=== PATIENT | female | born 1975 | race African-American/Black ===

== ENCOUNTER 2019-12-24 21:39 | Inpatient (IN) | payer OTHER, SELFPAY ==
[2019-12-26 03:49] VITALS: BMI 55.4
[2019-12-27] VITALS (10 sets, daily range): BP systolic 97–134; BP diastolic 43–68; PULSE 66–96; RESP 18–22; TEMP 36.1–37.2; O2SAT 93–99
[2019-12-27 06:30] LABS: INTERNATIONAL NORM RATIO 2.2 (0.9-1.1); Prothrombin Time 26.2 SEC (10.8-13.0)
[2019-12-27] MEDS: Omeprazole 20 MG CAPSULE.DR PO ×2 (06:33→10:01)
[2019-12-27] MEDS: 0.9 % Sodium Chloride Flush 3 ML SYRINGE 2 ML IVFLUSH ×4 (06:33→21:12)
[2019-12-27] MEDS: Levothyroxine Sodium 75 MCG TABLET PO ×2 (06:33→10:03)
[2019-12-27 06:41] LABS: MANUAL DIFF FLAG NO
[2019-12-27 06:51] LABS: Basophils Percent Auto 0.2 % (0-2); Hematocrit 40.5 % (37-47); Imm Gran Pct Auto 0.6 % (0.0-0.4); Lymphocytes Absolute Auto 2.2 X10*3/uL (1.2-4.9); Lymphocytes Percent Auto 14.3 % (20-40); Mean Corpuscular HGB Conc 32.1 g/dl (31.0-35.0); Mean Corpuscular Hemoglobin 27.5 pg (27.0-33.0); Mean Corpuscular Volume 85.8 fL (80-98); Mean Platelet Volume 11.4 fL (9.4-12.3); Monocytes Absolute Auto 0.9 X10*3/uL (0.1-1.2); Monocytes Percent Auto 5.8 % (2-11); Neutrophils Absolute Auto 12.3 X10*3/uL (2.0-8.3); Neutrophils Percent Auto 79.1 % (45-73); Platelet Count 326 X10*3/uL (160-400); Red Blood Count 4.72 X10*6/uL (4.20-5.50); Red Cell Distribution Width 15.9 % (11.0-16.0); White Blood Count 15.6 X10*3/uL (4.8-10.8)
[2019-12-27 06:59] LABS: Anion Gap 10 (12-20); Blood Urea Nitrogen 19 mg/dL (9-16); Calcium 9.2 mg/dL (8.4-10.2); Carbon Dioxide 28 mmol/L (22-29); Chloride 100 mmol/L (96-108); Creatinine Clr Calc Pharmacy 106.4; Estimated Glomerular Filt Rate 54; Glucose Fasting 332 mg/dL (60-99); Potassium 4.3 mmol/l (3.3-5.1); Sodium 134 mmol/L (135-145)
[2019-12-27 07:39] LABS: Glucose, Whole Blood 310 mg/dL (60-115)
--- NOTE | 2019-12-27 08:07 | PC.NURSE ---
P: PATIENT COMPLAINS OF CHEST PAIN, STERNAL, NO RADIATION, 8/10, WORSE ON DEEP INSPIRATION--ONLY PAIN MED ORDERED IS TYLENOL FOR 1-06/04 PAIN P: POC AT HS WAS 469. I: ASSESS PATIENT, NOTIFY DR PATHAK I: MEDICATE FOR PAIN WITH ONE TIME 650MG TYLENOL PER MD E: PATIENT ALERT, ORIENTED. FEELS HER PAIN IS ASSOCIATED WITH HER COUGH AND DEEP INSPIRATIONS. RECENTLY HAD EKG. NOTIFIED MD, WAS TOLD NOT TO TAKE EKG AT THIS TIME, ALSO NEW ORDER FOR ONE TIME TYLENOL ORDERED AND ADMINISTERED WITH GOOD EFFECT. REGARDING POC, SLIDING SCALE CALLED FOR 10 UNITS, THESE WERE GIVEN, AND MD NOTIFIED AND NEW ORDER FOR ADDITIONAL 10 UNITS LISPRO. 50 UNITS SCHEDULED LANTUS ALSO GIVEN.
[2019-12-27] MEDS: medroxyPROGESTERone Acetate 5 MG TABLET 20 MG PO (10:00)
[2019-12-27] MEDS: clonazePAM 0.5 MG TABLET PO ×2 (10:01→21:04)
[2019-12-27] MEDS: Metoprolol Succinate ER 50 MG TAB.ER.24H PO (10:02)
[2019-12-27] MEDS: lisinopriL 5 MG TABLET PO (10:03)
[2019-12-27] MEDS: Sertraline HCL 100 MG TABLET PO ×2 (10:03→21:03)
[2019-12-27] MEDS: Insulin Glargine,Hum.rec.anlog 100 UNIT/ML 10 ML VIAL 25 UNIT SUBCUT (10:04)
--- NOTE | 2019-12-27 10:10 | P.PNIM_ITS ---
Subjective Subjective Date of Service: 12/27/19 Interval History: improved shortness of breath, but still sob on exertion, not feeling confident to go home Cardiovascular Cardiovascular: Reports no additional cardiovascular complaints Respiratory Respiratory: Reports no additional respiratory complaints Physical Exam Vital Signs and I&O and Narrative: Vital Signs and I&O: Vital Signs Temp 98.2 F 12/27/19 07:47 Pulse 73 12/27/19 10:03 Resp 20 12/27/19 07:47 BP 113/53 L 12/27/19 10:03 Pulse Ox 95 12/27/19 08:00 Intake & Output 12/26/19 12/27/19 12/27/19 18:59 06:59 18:59 Intake Total 280 / 280 Output Total 600 / 600 Balance -320 / -320 Urine Output (Aver age ml/kg/hr) 0.31 Intake: Intake, Oral Alsen unt 280 / 280 Output: Output, Urine Am ount 600 / 600 Other: Number of Incont inent Voids 1 Number of Unmeas ured Voids 1 Urine Bedside Commode Urine Color Concentrated Body Mass Index 55.4 Const: General: no acute distress and alert Orientation/consciousness: patient oriented x3 Resp: Auscultation: clear to auscultation bilaterally and no wheezes Cardio: Heart sounds: S1 normal heart sound present and S2 normal heart sound present GI: Palpation (GI): nontender Neuro: General: patient oriented x3 Psych: Affect: normal affect Objective Data Current Medications Generic Name Dose Route Start Last Admin Trade Name Freq PRN Reason Stop Dose Admin Acetaminophen 650 mg 12/27/19 00:00 Acetaminophen 325 Mg Tablet PO Q6H PRN fever/pain,mild (scale 1-3) Albuterol Sulfate 2 puff 12/27/19 00:00 Albuterol Sulfate 90 Mcg 18 Gm Inhaler INHALE Q4H PRN Shortness of Breath/Wheezing Albuterol/Ipratropium 3 ml 12/27/19 08:00 12/27/19 07:39 Albuterol/Iprat 2.5/0.5mg 3 Ml Ampul.Neb INHALE Not Given RQ4H WHILE AWAKE CLAIRE Atorvastatin Calcium 20 mg 12/27/19 21:00 Atorvastatin Calcium 20 Mg Tablet PO BEDTIME [facility]IRE Clonazepam 0.5 mg 12/27/19 09:00 12/27/19 10:01 Clonazepam 0.5 Mg Tablet PO 0.5 mg BID [facility] Administration Clonazepam 0.5 mg 12/27/19 00:00 Clonazepam 0.5 Mg Tablet PO DAILY PRN Anxiety Docusate Sodium 100 mg 12/27/19 00:00 Docusate Sodium 100 Mg Capsule PO Q24H PRN Constipation Azithromycin 500 mg/ Sodium 250 mls @ 250 mls/hr 12/27/19 22:00 Chloride IV Q24H [facility] Ceftriaxone Sodium 1 gm/ 50 mls @ 100 mls/hr 12/27/19 22:00 Sodium Chloride IV Q24H [facility] Insulin Glargine 50 unit 12/27/19 21:00 Insulin Glargine,Hum.Rec.Anlog 100 Unit/Ml 10 Ml Vial SUBCUT BEDTIME [facility] Insulin Glargine 25 unit 12/27/19 09:00 12/27/19 10:04 Insulin Glargine,Hum.Rec.Anlog 100 Unit/Ml 10 Ml Vial SUBCUT 25 unit DAILY [facility] Administration Insulin Human Lispro 0 unit 12/27/19 08:00 12/27/19 10:06 Insulin Lispro 100 Unit/Ml 3 Ml Vial SUBCUT Not Given QIDACHS [facility] Protocol Insulin Human Lispro 14 unit 12/27/19 07:30 12/27/19 09:53 Insulin Lispro 100 Unit/Ml 3 Ml Vial SUBCUT Not Given TIDAC [facility] Levothyroxine Sodium 75 mcg 12/27/19 06:00 12/27/19 10:03 Levothyroxine Sodium 75 Mcg Tablet PO 75 mcg DAILY@0600 [facility] Administration Lisinopril 5 mg 12/27/19 09:00 12/27/19 10:03 Lisinopril 5 Mg Tablet PO 5 mg DAILY [facility] Administration Medroxyprogesterone Acetate 20 mg 12/27/19 09:00 12/27/19 10:00 Medroxyprogesterone Acetate 5 Mg Tablet PO 20 mg DAILY [facility] Administration Metoprolol Succinate 50 mg 12/27/19 09:00 12/27/19 10:02 Metoprolol Succinate Er 50 Mg Tab.Er.24h PO 50 mg DAILY [facility] Administration Omeprazole 20 mg 12/27/19 06:30 12/27/19 10:01 Omeprazole 20 Mg Capsule.Dr PO 20 mg DAILY@0630 [facility] Administration Ondansetron HCl 4 mg 10/01/20 00:00 Ondansetron Hcl 4 Mg/2 Ml Vial IVPUSH Q8H PRN Nausea and Vomiting Prednisone 40 mg 12/28/19 09:00 Prednisone 20 Mg Tablet PO DAILY [facility] Sertraline HCl 100 mg 12/27/19 09:00 12/27/19 10:03 Sertraline Hcl 100 Mg Tablet PO 100 mg BID [facility] Administration Sodium Chloride 2 ml 12/27/19 00:00 12/27/19 09:54 0.9 % Sodium Chloride Flush 3 Ml Syringe IVFLUSH 2 ml QSHIFT [facility] Administration Trazodone HCl 50 mg 12/27/19 00:00 Trazodone Hcl 100 Mg Tablet PO BEDTIME PRN Sleep Warfarin Sodium 5 mg 12/27/19 18:00 Warfarin Sodium 5 Mg Tablet PO DAILY@1800 [facility] Labs CBC & Chem 7: 12/27/19 06:00 12/27/19 06:00 Labs: Laboratory Results - last 24 hr 12/24/19 12/24/19 12/24/19 13:59 13:59 13:59 MCV 85.1 MCH 28.0 MCHC 32.9 RDW RDW Coeff of [place] 15.9 Plt Count 314 MPV 11.0 Immature Gran % (Auto) 0.6 H Neut % (Auto) 75.0 H Lymph % (Auto) 19.5 L [place] % (Auto) 4.2 Eos % (Auto) 0.2 Baso % (Auto) 0.5 Neut # (Auto) Lymph # (Auto) [place] # (Auto) Eos # (Auto) Baso # (Auto) Abs Immat Gran (auto) 0.08 H Absolute Lymphs (auto) 2.4 Absolute Monos (auto) 0.5 Absolute Eos (auto) 0.0 Absolute Basos (auto) 0.1 Absolute Nucleated RBC 0.020 H Nucleated RBC % (auto) 0.2 Absolute Neutrophils 9.3 H PT INR APTT D-Dimer Bicarbonate 27 Anion Gap 11 L Estimated Creat Clear 113.6 Estim Creat Clear Calc Estimated GFR Est GFR (Non-Af Amer) 59 POC Glucose Random Glucose 285 H Fasting Glucose Calcium Ferritin Lactate Dehydrogenase 203 Troponin I High Sens < 3.5 C-Reactive Protein 0.49 B-Natriuretic Peptide 317 H Procalcitonin Respiratory Panel [place] Adenovirus (PCR) B.pert (TEM-PCR) B.parapertussis DNA PCR C. pneumoniae DNA (PCR) Coronavirus (PCR) Coronavirus OC43 (PCR) Coronavirus HKU1 (PCR) Coronavirus 229E (PCR) Coronavirus NL63 (PCR) Human Metapneumovir PCR Influenza A (RT-PCR) Influenza B (RT-PCR) M. pneumoniae (PCR) Parainfluenza 1 (PCR) Parainfluenza 2 (PCR) Parainfluenza 3 (PCR) Parainfluenza 4 (PCR) RSV (RT-PCR) Entero/Rhino (PCR) SARS Virus RNA (RT-PCR) 12/24/19 12/24/19 12/24/19 13:59 13:59 13:59 MCV MCH MCHC RDW RDW Coeff of [place] Plt Count MPV Immature Gran % (Auto) Neut % (Auto) Lymph % (Auto) [place] % (Auto) Eos % (Auto) Baso % (Auto) Neut # (Auto) Lymph # (Auto) [place] # (Auto) Eos # (Auto) Baso # (Auto) Abs Immat Gran (auto) Absolute Lymphs (auto) Absolute Monos (auto) Absolute Eos (auto) Absolute Basos (auto) Absolute Nucleated RBC Nucleated RBC % (auto) Absolute Neutrophils PT 25.1 H D INR 2.1 H APTT 38.3 H D-Dimer Bicarbonate Anion Gap Estimated Creat Clear Estim Creat Clear Calc Estimated GFR Est GFR (Non-Af Amer) POC Glucose Random Glucose Fasting Glucose Calcium Ferritin 17 Lactate Dehydrogenase Troponin I High Sens C-Reactive Protein B-Natriuretic Peptide Procalcitonin 0.02 Respiratory Panel P[facility] Adenovirus (PCR) B.pert (TEM-PCR) B.parapertussis DNA PCR C. pneumoniae DNA (PCR) Coronavirus (PCR) Coronavirus OC43 (PCR) Coronavirus HKU1 (PCR) Coronavirus 229E (PCR) Coronavirus NL63 (PCR) Human Metapneumovir PCR Influenza A (RT-PCR) Influenza B (RT-PCR) M. pneumoniae (PCR) Parainfluenza 1 (PCR) Parainfluenza 2 (PCR) Parainfluenza 3 (PCR) Parainfluenza 4 (PCR) RSV (RT-PCR) Entero/Rhino (PCR) SARS Virus RNA (RT-PCR) 12/24/19 12/24/19 12/24/19 13:59 17:45 18:52 MCV MCH MCHC RDW RDW Coeff of [place] Plt Count MPV Immature Gran % (Auto) Neut % (Auto) Lymph % (Auto) [place] % (Auto) Eos % (Auto) Baso % (Auto) Neut # (Auto) Lymph # (Auto) [place] # (Auto) Eos # (Auto) Baso # (Auto) Abs Immat Gran (auto) Absolute Lymphs (auto) Absolute Monos (auto) Absolute Eos (auto) Absolute Basos (auto) Absolute Nucleated RBC Nucleated RBC % (auto) Absolute Neutrophils PT INR APTT D-Dimer < 200 Bicarbonate Anion Gap Estimated Creat Clear Estim Creat Clear Calc Estimated GFR Est GFR (Non-Af Amer) POC Glucose Random Glucose Fasting Glucose Calcium Ferritin Lactate Dehydrogenase Troponin I High Sens C-Reactive Protein B-Natriuretic Peptide Procalcitonin Respiratory Panel Pichardo SEE NOTE Adenovirus (PCR) NOT DETECTED B.pert (TEM-PCR) NOT DETECTED B.parapertussis DNA PCR NOT DETECTED C. pneumoniae DNA (PCR) NOT DETECTED Coronavirus (PCR) Not Detected Coronavirus OC43 (PCR) NOT DETECTED Coronavirus HKU1 (PCR) NOT DETECTED Coronavirus 229E (PCR) NOT DETECTED Coronavirus NL63 (PCR) NOT DETECTED Human Metapneumovir PCR NOT DETECTED Influenza A (RT-PCR) NOT DETECTED Influenza B (RT-PCR) NOT DETECTED M. pneumoniae (PCR) NOT DETECTED Parainfluenza 1 (PCR) NOT DETECTED Parainfluenza 2 (PCR) NOT DETECTED Parainfluenza 3 (PCR) NOT DETECTED Parainfluenza 4 (PCR) NOT DETECTED RSV (RT-PCR) NOT DETECTED Entero/Rhino (PCR) NOT DETECTED SARS Virus RNA (RT-PCR) NOT DETECTED 12/24/19 12/25/19 12/25/19 22:20 06:03 06:03 MCV 84.9 MCH 27.9 MCHC 32.8 RDW RDW Coeff of [place] 16.1 H Plt Count 310 MPV 10.9 Immature Gran % (Auto) 0.6 H Neut % (Auto) 68.3 Lymph % (Auto) 24.6 [place] % (Auto) 6.0 Eos % (Auto) 0.1 Baso % (Auto) 0.4 Neut # (Auto) Lymph # (Auto) [place] # (Auto) Eos # (Auto) Baso # (Auto) Abs Immat Gran (auto) 0.09 H Absolute Lymphs (auto) 3.5 Absolute Monos (auto) 0.9 Absolute Eos (auto) 0.0 Absolute Basos (auto) 0.1 Absolute Nucleated RBC 0.000 Nucleated RBC % (auto) 0.0 Absolute Neutrophils 9.8 H PT INR APTT D-Dimer Bicarbonate 28 Anion Gap 12 Estimated Creat Clear 112.5 Estim Creat Clear Calc Estimated GFR Est GFR (Non-Af Amer) 58 POC Glucose 364 H* Random Glucose Fasting Glucose 247 H D Calcium 9.5 D Ferritin Lactate Dehydrogenase Troponin I High Sens C-Reactive Protein B-Natriuretic Peptide Procalcitonin Respiratory Panel [place] Adenovirus (PCR) B.pert (TEM-PCR) B.parapertussis DNA PCR C. pneumoniae DNA (PCR) Coronavirus (PCR) Coronavirus OC43 (PCR) Coronavirus HKU1 (PCR) Coronavirus 229E (PCR) Coronavirus NL63 (PCR) Human Metapneumovir PCR Influenza A (RT-PCR) Influenza B (RT-PCR) M. pneumoniae (PCR) Parainfluenza 1 (PCR) Parainfluenza 2 (PCR) Parainfluenza 3 (PCR) Parainfluenza 4 (PCR) RSV (RT-PCR) Entero/Rhino (PCR) SARS Virus RNA (RT-PCR) 12/25/19 12/25/19 12/25/19 06:03 07:45 11:11 MCV MCH MCHC RDW RDW Coeff of [place] Plt Count MPV Immature Gran % (Auto) Neut % (Auto) Lymph % (Auto) [place] % (Auto) Eos % (Auto) Baso % (Auto) Neut # (Auto) Lymph # (Auto) [place] # (Auto) Eos # (Auto) Baso # (Auto) Abs Immat Gran (auto) Absolute Lymphs (auto) Absolute Monos (auto) Absolute Eos (auto) Absolute Basos (auto) Absolute Nucleated RBC Nucleated RBC % (auto) Absolute Neutrophils PT 29.9 H INR 2.5 H APTT D-Dimer Bicarbonate Anion Gap Estimated Creat Clear Estim Creat Clear Calc Estimated GFR Est GFR (Non-Af Amer) POC Glucose 240 H 373 H* Random Glucose Fasting Glucose Calcium Ferritin Lactate Dehydrogenase Troponin I High Sens C-Reactive Protein B-Natriuretic Peptide Procalcitonin Respiratory Panel [place] Adenovirus (PCR) B.pert (TEM-PCR) B.parapertussis DNA PCR C. pneumoniae DNA (PCR) Coronavirus (PCR) Coronavirus OC43 (PCR) Coronavirus HKU1 (PCR) Coronavirus 229E (PCR) Coronavirus NL63 (PCR) Human Metapneumovir PCR Influenza A (RT-PCR) Influenza B (RT-PCR) M. pneumoniae (PCR) Parainfluenza 1 (PCR) Parainfluenza 2 (PCR) Parainfluenza 3 (PCR) Parainfluenza 4 (PCR) RSV (RT-PCR) Entero/Rhino (PCR) SARS Virus RNA (RT-PCR) 12/25/19 12/25/19 12/25/19 16:52 21:35 23:15 MCV MCH MCHC RDW RDW Coeff of [place] Plt Count MPV Immature Gran % (Auto) Neut % (Auto) Lymph % (Auto) [place] % (Auto) Eos % (Auto) Baso % (Auto) Neut # (Auto) Lymph # (Auto) [place] # (Auto) Eos # (Auto) Baso # (Auto) Abs Immat Gran (auto) Absolute Lymphs (auto) Absolute Monos (auto) Absolute Eos (auto) Absolute Basos (auto) Absolute Nucleated RBC Nucleated RBC % (auto) Absolute Neutrophils PT INR APTT D-Dimer Bicarbonate Anion Gap Estimated Creat Clear Estim Creat Clear Calc Estimated GFR Est GFR (Non-Af Amer) POC Glucose 334 H 517 H* 374 H* Random Glucose Fasting Glucose Calcium Ferritin Lactate Dehydrogenase Troponin I High Sens C-Reactive Protein B-Natriuretic Peptide Procalcitonin Respiratory Panel [facility] Adenovirus (PCR) B.pert (TEM-PCR) B.parapertussis DNA PCR C. pneumoniae DNA (PCR) Coronavirus (PCR) Coronavirus OC43 (PCR) Coronavirus HKU1 (PCR) Coronavirus 229E (PCR) Coronavirus NL63 (PCR) Human Metapneumovir PCR Influenza A (RT-PCR) Influenza B (RT-PCR) M. pneumoniae (PCR) Parainfluenza 1 (PCR) Parainfluenza 2 (PCR) Parainfluenza 3 (PCR) Parainfluenza 4 (PCR) RSV (RT-PCR) Entero/Rhino (PCR) SARS Virus RNA (RT-PCR) 12/26/19 12/26/19 12/26/19 02:38 05:33 05:33 MCV MCH MCHC RDW RDW Coeff of [place] Plt Count MPV Immature Gran % (Auto) Neut % (Auto) Lymph % (Auto) [place] % (Auto) Eos % (Auto) Baso % (Auto) Neut # (Auto) Lymph # (Auto) [place] # (Auto) Eos # (Auto) Baso # (Auto) Abs Immat Gran (auto) Absolute Lymphs (auto) Absolute Monos (auto) Absolute Eos (auto) Absolute Basos (auto) Absolute Nucleated RBC Nucleated RBC % (auto) Absolute Neutrophils PT 27.4 H INR 2.3 H APTT D-Dimer Bicarbonate 27 Anion Gap 13 Estimated Creat Clear 118.2 Estim Creat Clear Calc Estimated GFR Est GFR (Non-Af Amer) > 60 POC Glucose 280 H Random Glucose 217 H Fasting Glucose Calcium 9.7 Ferritin Lactate Dehydrogenase Troponin I High Sens C-Reactive Protein B-Natriuretic Peptide Procalcitonin Respiratory Panel [facility] Adenovirus (PCR) B.pert (TEM-PCR) B.parapertussis DNA PCR C. pneumoniae DNA (PCR) Coronavirus (PCR) Coronavirus OC43 (PCR) Coronavirus HKU1 (PCR) Coronavirus 229E (PCR) Coronavirus NL63 (PCR) Human Metapneumovir PCR Influenza A (RT-PCR) Influenza B (RT-PCR) M. pneumoniae (PCR) Parainfluenza 1 (PCR) Parainfluenza 2 (PCR) Parainfluenza 3 (PCR) Parainfluenza 4 (PCR) RSV (RT-PCR) Entero/Rhino (PCR) SARS Virus RNA (RT-PCR) 12/26/19 12/26/19 12/26/19 05:33 06:21 07:30 MCV 85.2 MCH 28.0 MCHC 32.8 RDW RDW Coeff of [place] 15.7 Plt Count 321 MPV 11.1 Immature Gran % (Auto) 0.5 H Neut % (Auto) 75.9 H Lymph % (Auto) 16.6 L [place] % (Auto) 6.7 Eos % (Auto) 0.0 Baso % (Auto) 0.3 Neut # (Auto) Lymph # (Auto) [place] # (Auto) Eos # (Auto) Baso # (Auto) Abs Immat Gran (auto) 0.08 H Absolute Lymphs (auto) 2.6 Absolute Monos (auto) 1.0 Absolute Eos (auto) 0.0 Absolute Basos (auto) 0.0 Absolute Nucleated RBC 0.000 Nucleated RBC % (auto) 0.0 Absolute Neutrophils 11.7 H PT INR APTT D-Dimer Bicarbonate Anion Gap Estimated Creat Clear Estim Creat Clear Calc Estimated GFR Est GFR (Non-Af Amer) POC Glucose 212 H 186 H Random Glucose Fasting Glucose Calcium Ferritin Lactate Dehydrogenase Troponin I High Sens C-Reactive Protein B-Natriuretic Peptide Procalcitonin Respiratory Panel [facility] Adenovirus (PCR) B.pert (TEM-PCR) B.parapertussis DNA PCR C. pneumoniae DNA (PCR) Coronavirus (PCR) Coronavirus OC43 (PCR) Coronavirus HKU1 (PCR) Coronavirus 229E (PCR) Coronavirus NL63 (PCR) Human Metapneumovir PCR Influenza A (RT-PCR) Influenza B (RT-PCR) M. pneumoniae (PCR) Parainfluenza 1 (PCR) Parainfluenza 2 (PCR) Parainfluenza 3 (PCR) Parainfluenza 4 (PCR) RSV (RT-PCR) Entero/Rhino (PCR) SARS Virus RNA (RT-PCR) 12/26/19 12/26/19 12/26/19 11:25 16:07 21:14 MCV MCH MCHC RDW RDW Coeff of [place] Plt Count MPV Immature Gran % (Auto) Neut % (Auto) Lymph % (Auto) [place] % (Auto) Eos % (Auto) Baso % (Auto) Neut # (Auto) Lymph # (Auto) [place] # (Auto) Eos # (Auto) Baso # (Auto) Abs Immat Gran (auto) Absolute Lymphs (auto) Absolute Monos (auto) Absolute Eos (auto) Absolute Basos (auto) Absolute Nucleated RBC Nucleated RBC % (auto) Absolute Neutrophils PT INR APTT D-Dimer Bicarbonate Anion Gap Estimated Creat Clear Estim Creat Clear Calc Estimated GFR Est GFR (Non-Af Amer) POC Glucose 143 H 363 H* 469 H* Random Glucose Fasting Glucose Calcium Ferritin Lactate Dehydrogenase Troponin I High Sens C-Reactive Protein B-Natriuretic Peptide Procalcitonin Respiratory Panel [facility] Adenovirus (PCR) B.pert (TEM-PCR) B.parapertussis DNA PCR C. pneumoniae DNA (PCR) Coronavirus (PCR) Coronavirus OC43 (PCR) Coronavirus HKU1 (PCR) Coronavirus 229E (PCR) Coronavirus NL63 (PCR) Human Metapneumovir PCR Influenza A (RT-PCR) Influenza B (RT-PCR) M. pneumoniae (PCR) Parainfluenza 1 (PCR) Parainfluenza 2 (PCR) Parainfluenza 3 (PCR) Parainfluenza 4 (PCR) RSV (RT-PCR) Entero/Rhino (PCR) SARS Virus RNA (RT-PCR) 12/27/19 12/27/19 12/27/19 05:50 05:50 05:50 MCV 85.8 MCH 27.5 MCHC 32.1 RDW 15.9 RDW Coeff of [place] Plt Count 326 MPV 11.4 Immature Gran % (Auto) 0.6 H Neut % (Auto) 79.1 H Lymph % (Auto) 14.3 L [place] % (Auto) 5.8 Eos % (Auto) 0.0 Baso % (Auto) 0.2 Neut # (Auto) 12.3 H Lymph # (Auto) 2.2 [place] # (Auto) 0.9 Eos # (Auto) 0.0 Baso # (Auto) 0.0 Abs Immat Gran (auto) 0.10 H Absolute Lymphs (auto) Absolute Monos (auto) Absolute Eos (auto) Absolute Basos (auto) Absolute Nucleated RBC 0.000 Nucleated RBC % (auto) 0.0 Absolute Neutrophils PT 26.2 H INR 2.2 H APTT D-Dimer Bicarbonate Anion Gap 10 L Estimated Creat Clear Estim Creat Clear Calc 106.4 Estimated GFR 54 Est GFR (Non-Af Amer) POC Glucose Random Glucose Fasting Glucose 332 H Calcium 9.2 Ferritin Lactate Dehydrogenase Troponin I High Sens C-Reactive Protein B-Natriuretic Peptide Procalcitonin Respiratory Panel [facility] Adenovirus (PCR) B.pert (TEM-PCR) B.parapertussis DNA PCR C. pneumoniae DNA (PCR) Coronavirus (PCR) Coronavirus OC43 (PCR) Coronavirus HKU1 (PCR) Coronavirus 229E (PCR) Coronavirus NL63 (PCR) Human Metapneumovir PCR Influenza A (RT-PCR) Influenza B (RT-PCR) M. pneumoniae (PCR) Parainfluenza 1 (PCR) Parainfluenza 2 (PCR) Parainfluenza 3 (PCR) Parainfluenza 4 (PCR) RSV (RT-PCR) Entero/Rhino (PCR) SARS Virus RNA (RT-PCR) 12/27/19 12/27/19 12/27/19 06:00 06:00 07:00 MCV Not Rcvd MCH Not Rcvd MCHC Not Rcvd RDW RDW Coeff of [place] Not Rcvd Plt Count Not Rcvd MPV Not Rcvd Immature Gran % (Auto) Neut % (Auto) Lymph % (Auto) [place] % (Auto) Eos % (Auto) Baso % (Auto) Neut # (Auto) Lymph # (Auto) [place] # (Auto) Eos # (Auto) Baso # (Auto) Abs Immat Gran (auto) Absolute Lymphs (auto) Absolute Monos (auto) Absolute Eos (auto) Absolute Basos (auto) Absolute Nucleated RBC Not Rcvd Nucleated RBC % (auto) Not Rcvd Absolute Neutrophils PT Not Rcvd INR Not Rcvd APTT D-Dimer Bicarbonate Not Rcvd Anion Gap Not Rcvd Estimated Creat Clear Not Rcvd Estim Creat Clear Calc Estimated GFR Est GFR (Non-Af Amer) Not Rcvd POC Glucose Random Glucose Fasting Glucose Not Rcvd Calcium Not Rcvd Ferritin Lactate Dehydrogenase Troponin I High Sens C-Reactive Protein B-Natriuretic Peptide Procalcitonin Respiratory Panel [facility] Adenovirus (PCR) B.pert (TEM-PCR) B.parapertussis DNA PCR C. pneumoniae DNA (PCR) Coronavirus (PCR) Coronavirus OC43 (PCR) Coronavirus HKU1 (PCR) Coronavirus 229E (PCR) Coronavirus NL63 (PCR) Human Metapneumovir PCR Influenza A (RT-PCR) Influenza B (RT-PCR) M. pneumoniae (PCR) Parainfluenza 1 (PCR) Parainfluenza 2 (PCR) Parainfluenza 3 (PCR) Parainfluenza 4 (PCR) RSV (RT-PCR) Entero/Rhino (PCR) SARS Virus RNA (RT-PCR) 12/27/19 07:36 MCV MCH MCHC RDW RDW Coeff of [place] Plt Count MPV Immature Gran % (Auto) Neut % (Auto) Lymph % (Auto) [place] % (Auto) Eos % (Auto) Baso % (Auto) Neut # (Auto) Lymph # (Auto) [place] # (Auto) Eos # (Auto) Baso # (Auto) Abs Immat Gran (auto) Absolute Lymphs (auto) Absolute Monos (auto) Absolute Eos (auto) Absolute Basos (auto) Absolute Nucleated RBC Nucleated RBC % (auto) Absolute Neutrophils PT INR APTT D-Dimer Bicarbonate Anion Gap Estimated Creat Clear Estim Creat Clear Calc Estimated GFR Est GFR (Non-Af Amer) POC Glucose 310 H Random Glucose Fasting Glucose Calcium Ferritin Lactate Dehydrogenase Troponin I High Sens C-Reactive Protein B-Natriuretic Peptide Procalcitonin Respiratory Panel [facility] Adenovirus (PCR) B.pert (TEM-PCR) B.parapertussis DNA PCR C. pneumoniae DNA (PCR) Coronavirus (PCR) Coronavirus OC43 (PCR) Coronavirus HKU1 (PCR) Coronavirus 229E (PCR) Coronavirus NL63 (PCR) Human Metapneumovir PCR Influenza A (RT-PCR) Influenza B (RT-PCR) M. pneumoniae (PCR) Parainfluenza 1 (PCR) Parainfluenza 2 (PCR) Parainfluenza 3 (PCR) Parainfluenza 4 (PCR) RSV (RT-PCR) Entero/Rhino (PCR) SARS Virus RNA (RT-PCR)
[2019-12-27 11:38] LABS: Glucose, Whole Blood 343 mg/dL (60-115)
[2019-12-27] MEDS: Insulin Lispro 100 UNIT/ML 3 ML VIAL SUBCUT ×2 (11:58→21:17)
[2019-12-27] MEDS: Insulin Lispro 100 UNIT/ML 3 ML VIAL 14 UNIT SUBCUT (11:59)
[2019-12-27 16:50] LABS: Glucose, Whole Blood 99 mg/dL (60-115)
[2019-12-27] MEDS: Warfarin Sodium 5 MG TABLET PO (17:54)
[2019-12-27] MEDS: Albuterol/Iprat 2.5/0.5MG 3 ML AMPUL.NEB INHALE (20:17)
[2019-12-27 20:59] LABS: Glucose, Whole Blood 335 mg/dL (60-115)
[2019-12-27] MEDS: Atorvastatin Calcium 20 MG TABLET PO (21:03)
[2019-12-27] MEDS: Insulin Glargine,Hum.rec.anlog 100 UNIT/ML 10 ML VIAL 50 UNIT SUBCUT (21:05)
[2019-12-28 06:32] LABS: MANUAL DIFF FLAG NO
[2019-12-28 07:05] LABS: Anion Gap 12 (12-20); Blood Urea Nitrogen 16 mg/dL (9-16); Carbon Dioxide 28 mmol/L (22-29); Chloride 103 mmol/L (96-108); Estimated Glomerular Filt Rate > 60; Glucose Fasting 118 mg/dL (60-99); Potassium 3.7 mmol/l (3.3-5.1); Sodium 139 mmol/L (135-145)
[2019-12-28 07:07] LABS: INTERNATIONAL NORM RATIO 1.7 (0.9-1.1); Prothrombin Time 20.5 SEC (10.8-13.0)
[2019-12-28 07:11] LABS: Basophils Absolute Auto 0.1 X10*3/uL (0.0-0.2); Basophils Percent Auto 0.4 % (0-2); Eosinophils Absolute Auto 0.1 X10*3/uL (0.0-0.4); Eosinophils Percent Auto 0.7 % (0-4); Hematocrit 42.1 % (37-47); Hemoglobin 13.4 g/dl (12.0-16.0); Imm Gran Abs Auto 0.07 X10*3/uL (0.00-0.03); Imm Gran Pct Auto 0.5 % (0.0-0.4); Lymphocytes Absolute Auto 4.4 X10*3/uL (1.2-4.9); Lymphocytes Percent Auto 33.6 % (20-40); Mean Corpuscular HGB Conc 31.8 g/dl (31.0-35.0); Mean Corpuscular Hemoglobin 27.5 pg (27.0-33.0); Mean Corpuscular Volume 86.4 fL (80-98); Mean Platelet Volume 11.1 fL (9.4-12.3); Monocytes Absolute Auto 0.8 X10*3/uL (0.1-1.2); Monocytes Percent Auto 6.3 % (2-11); Neutrophils Absolute Auto 7.7 X10*3/uL (2.0-8.3); Neutrophils Percent Auto 58.5 % (45-73); Platelet Count 305 X10*3/uL (160-400); Red Blood Count 4.87 X10*6/uL (4.20-5.50); Red Cell Distribution Width 15.9 % (11.0-16.0); White Blood Count 13.2 X10*3/uL (4.8-10.8)
[2019-12-28 07:16] VITALS: BP 114/56; PULSE 68; RESP 20; TEMP 37.1; O2SAT 93
[2019-12-28 07:25] LABS: Glucose, Whole Blood 95 mg/dL (60-115)
[2019-12-28 07:31] LABS: Calcium 8.6 mg/dL (8.4-10.2)
[2019-12-28 08:00] VITALS: O2SAT 93
[2019-12-28] MEDS: 0.9 % Sodium Chloride Flush 3 ML SYRINGE 2 ML IVFLUSH (08:40)
[2019-12-28] MEDS: Insulin Glargine,Hum.rec.anlog 100 UNIT/ML 10 ML VIAL 25 UNIT SUBCUT (08:53)
[2019-12-28] MEDS: clonazePAM 0.5 MG TABLET PO (08:53)
[2019-12-28 08:54] VITALS: BP 114/56; PULSE 68
[2019-12-28] MEDS: medroxyPROGESTERone Acetate 5 MG TABLET 20 MG PO (08:54)
[2019-12-28] MEDS: Sertraline HCL 100 MG TABLET PO (08:54)
[2019-12-28] MEDS: Metoprolol Succinate ER 50 MG TAB.ER.24H PO (08:54)
[2019-12-28] MEDS: predniSONE 20 MG TABLET 40 MG PO (08:54)
[2019-12-28 08:55] VITALS: BP 114/56; PULSE 68
[2019-12-28] MEDS: lisinopriL 5 MG TABLET PO (08:55)
[2019-12-28 11:14] LABS: Glucose, Whole Blood 235 mg/dL (60-115)
[2019-12-28 11:30] VITALS: BP 94/52; PULSE 67; RESP 18; TEMP 37.1; O2SAT 98
[2019-12-28] MEDS: Albuterol/Iprat 2.5/0.5MG 3 ML AMPUL.NEB INHALE ×2 (11:40→15:48)
[2019-12-28] MEDS: Insulin Lispro 100 UNIT/ML 3 ML VIAL SUBCUT (11:50)
[2019-12-28] MEDS: Insulin Lispro 100 UNIT/ML 3 ML VIAL 14 UNIT SUBCUT (11:50)
--- NOTE | 2019-12-28 13:15 | P.DS_ITS ---
DS: Providers Provider Date of admission: 12/24/19 21:39 Primary care physician: Unknown Physician DS: Diagnosis Discharge Diagnosis (1) Super obesity: Status: Acute (2) Chronic respiratory failure with hypoxia: Status: Acute (3) Diabetes: Status: Acute (4) Asthma: Status: Acute (5) Acute asthma exacerbation: Status: Acute (6) Acute and chronic respiratory failure with hypoxia: Status: Acute DS: Summary Hospital Course Hospital Course: patient was admitted for acute on chronic hypoxic respiratory failureInitially thought to be due to pneumonia. However, CT chest did not reveal any opacity, making pneumonia unlikely. Most likely this was acute asthma exacerbation. Patient was given ceftriaxone and steroids along with bronchodilators. Acute hypoxia resolved and patient's symptoms significantly improved she is now feeling close to baseline will be discharged home on 5 more days of p.o. Ceftin and prednisone. Time Spent with Patient Time attestation: Total time spent providing and/or coordinating discharge services: Physical Exam Vital Signs and I&O and Narrative: Vital Signs and I&O: Vital Signs Temp 98.7 F 12/28/19 11:30 Pulse 67 12/28/19 11:30 Resp 18 12/28/19 11:30 BP 94/52 L 12/28/19 11:30 Pulse Ox 98 12/28/19 11:30 Intake & Output 12/27/19 12/28/19 12/28/19 18:59 06:59 18:59 Intake Total 600 / 850 250 / 850 Output Total 201 / 1851 1650 / 1851 Balance 399 / -1001 -1400 / -1001 Urine Output (Aver age ml/kg/hr) 0.10 0.86 Intake: Intake, Oral Nanette unt 600 / 600 Intake, IV Amoun t 250 / 250 Azithromycin 5 00 mg In 0.9 % 250 / 250 Sodium Chlorid e PVC Free 250 ml @ 250 mls/hr I V Q24H [facility] Rx#: [id number] Output: Output, Urine Am ount 200 / 1850 1650 / 1850 Output, Stool Am ount Other: Meal Refused No NPO No Breakfast % Eate n 100% Lunch % Eaten 100% Dinner % Eaten 100% Number of Unmeas ured Voids 1 Number of Bowel Movements 1 Urine Bedside Commode Bedside Commode Urine Color Yellow Yellow Stool Bathroom Bathroom Stool Color Seedy Stool Consistenc y Formed Body Mass Index 55.4 Resp: Auscultation: clear to auscultation bilaterally Cardio: Rhythm: regular rhythm DS: Data Data Completed and Pending Labs on day of discharge: Labs from last 24 hours 12/28/19 12/28/19 12/28/19 11:11 07:22 05:25 WBC RBC Hgb Hct MCV MCH MCHC RDW Plt Count MPV Immature Gran % (Auto) Neut % (Auto) Lymph % (Auto) [place] % (Auto) Eos % (Auto) Baso % (Auto) Neut # (Auto) Lymph # (Auto) [place] # (Auto) Eos # (Auto) Baso # (Auto) Abs Immat Gran (auto) Absolute Nucleated RBC Nucleated RBC % (auto) PT 20.5 H D INR 1.7 H Sodium Potassium Chloride Carbon Dioxide Anion Gap BUN Creatinine Estim Creat Clear Calc Estimated GFR POC Glucose 235 H 95 Fasting Glucose Calcium 12/28/19 12/28/19 12/27/19 05:25 05:25 20:57 WBC 13.2 H RBC 4.87 Hgb 13.4 Hct 42.1 MCV 86.4 MCH 27.5 MCHC 31.8 RDW 15.9 Plt Count 305 MPV 11.1 Immature Gran % (Auto) 0.5 H Neut % (Auto) 58.5 Lymph % (Auto) 33.6 [place] % (Auto) 6.3 Eos % (Auto) 0.7 Baso % (Auto) 0.4 Neut # (Auto) 7.7 Lymph # (Auto) 4.4 [place] # (Auto) 0.8 Eos # (Auto) 0.1 Baso # (Auto) 0.1 Abs Immat Gran (auto) 0.07 H Absolute Nucleated RBC 0.000 Nucleated RBC % (auto) 0.0 PT INR Sodium 139 Potassium 3.7 Chloride 103 Carbon Dioxide 28 Anion Gap 12 BUN 16 Creatinine 0.88 Estim Creat Clear Calc 133.0 Estimated GFR > 60 POC Glucose 335 H Fasting Glucose 118 H D Calcium 8.6 12/27/19 16:46 WBC RBC Hgb Hct MCV MCH MCHC RDW Plt Count MPV Immature Gran % (Auto) Neut % (Auto) Lymph % (Auto) [place] % (Auto) Eos % (Auto) Baso % (Auto) Neut # (Auto) Lymph # (Auto) [place] # (Auto) Eos # (Auto) Baso # (Auto) Abs Immat Gran (auto) Absolute Nucleated RBC Nucleated RBC % (auto) PT INR Sodium Potassium Chloride Carbon Dioxide Anion Gap BUN Creatinine Estim Creat Clear Calc Estimated GFR POC Glucose 99 Fasting Glucose Calcium Discharge Plan Discharge Patient Disposition: Home Health Service Referrals: bryce [Other] Physician,Unknown [Primary Care Provider] - Discharge Medications: New prednisone 20 mg Tablet 40 mg PO DAILY Qty: 10 RF: 0 cefuroxime axetil 250 mg tablet 250 mg PO BID Qty: 10 RF: 0 Continued atorvastatin [Lipitor] 20 mg Tablet 20 mg PO DAILY RF: 0 albuterol sulfate 2.5 mg /3 mL (0.083 %) Solution For Nebulization 2.5 mg INHALATION QID PRN (Reason: Allergic Reaction) RF: 0 cetirizine [Zyrtec] 10 mg Tablet 10 mg PO DAILY RF: 0 clonazepam [Klonopin] 0.5 mg Tablet 0.5 mg PO BID RF: 0 clonazepam [Klonopin] 0.5 mg Tablet 0.5 mg PO DAILY PRN (Reason: Anxiety) RF: 0 epinephrine [EpiPen 2-Mykel] 0.3 mg/0.3 mL Auto-Injector 0.3 mg IM NEEDED PRN (Reason: SEVERE ALLERGIC REACTION) RF: 0 Trulicity 1.5 mg/0.5 mL Pen Injector 1.5 mg SUBCUT QWEEK RF: 0 [place] SoloStar U-300 Insulin 300 unit/mL (1.5 mL) Insulin Pen 50 unit SUBCUT QPM RF: 0 medroxyprogesterone [Provera] 10 mg Tablet 20 mg PO DAILY RF: 0 trazodone 50 mg Tablet 50 mg PO BEDTIME PRN (Reason: Allergic Reaction) RF: 0 metoprolol succinate 50 mg Tablet Extended Release 24 Hr 50 mg PO DAILY RF: 0 sertraline [Zoloft] 100 mg Tablet 100 mg PO BID RF: 0 levothyroxine 75 mcg Tablet 75 mcg PO DAILY@0630 RF: 0 metformin 1,000 mg Tablet 1,000 mg PO BID@0800,1700 RF: 0 warfarin 5 mg Tablet 5 mg PO DAILY@1700 RF: 0 omeprazole 20 mg Capsule,Delayed Release(Dr/Ec) 20 mg PO DAILY@0630 RF: 0 lisinopril 5 mg Tablet 5 mg PO DAILY RF: 0 albuterol sulfate [ProAir HFA] 90 mcg/actuation Hfa Aerosol Inhaler 2 puff INHALATION Q4-6H PRN (Reason: COUGH/WHEEZE) RF: 0 Discharge Orders: Discharge Order (Routine); Ordered 12/28/19 Ordered By: William Corrales Diet: advance to your usual diet Activity on Discharge: As tolerated Visit Report Forms: Patient Portal Discharge page Care Plan Goals: recovered Health Concerns: asthma Plan of Treatment: steroids and antibiotics
--- NOTE | 2019-12-28 13:26 | MHC.CM.PN ---
DC today home with resumption of homecare services with [facility]. [employer] services will also resume. Transportation provided by [employer].
[2019-12-28 15:22] VITALS: BP 104/55; PULSE 70; RESP 18; TEMP 36.9; O2SAT 97
== END 2019-12-28 16:53 | disposition home health service (06) | DRG 141 ==
PROVIDERS: Admitting Provider Internal Medicine; Emergency Provider Physician Assistant; Visit Provider Internal Medicine
DX: J45.901 Unspecified asthma with (acute) exacerbation (principal); J96.21 Acute and chronic respiratory failure with hypoxia; J18.9 Pneumonia, unspecified organism; E66.01 Morbid (severe) obesity due to excess calories; E11.65 Type 2 diabetes mellitus with hyperglycemia; Z68.43 Body mass index [BMI] 50.0-59.9, adult; D72.829 Elevated white blood cell count, unspecified; E03.9 Hypothyroidism, unspecified; I10 Essential (primary) hypertension; Z86.711 Personal history of pulmonary embolism; Z79.01 Long term (current) use of anticoagulants; Z79.4 Long term (current) use of insulin; Z88.0 Allergy status to penicillin; Z79.890 Hormone replacement therapy; Z79.899 Other long term (current) drug therapy
CPT/HCPCS: 0202U; 36415; 71045; 71250; 80048; 80051; 82565; 82728; 82947; 83615; 83880; 84145; 84484; 84520; 85025; 85379; 85610; 85730; 86140; 87040; 93005; 93306; 94644; 94664; 96365; 96375; 99285; J0456; J0696; J1940; J1956; J2920; J3475; Q9957; U0003

== ENCOUNTER 2019-12-31 15:09 | Emergency (ER) | payer OTHER, SELFPAY ==
--- NOTE | 2019-12-31 | XR_ITS ---
EXAMINATION: XR CHEST CLINICAL INFORMATION: Shortness of breath COMPARISON: Previous chest x-ray 12/24/[address] 12/26/2019 TECHNIQUE: 2 views of the chest were obtained. FINDINGS: The cardiac silhouette is slightly enlarged but stable. There are median sternotomy wires. There may be increased hilar markings or pulmonary venous redistribution. The lungs are otherwise clear. There is no pleural effusion or pneumothorax. There are mild degenerative changes of the spine. IMPRESSION: Stable mild enlargement of the cardiac silhouette. Question pulmonary venous redistribution. No evidence of pulmonary edema.
[2019-12-31 15:21] VITALS: BP 114/56; BP 160/72; PULSE 94; RESP 19; TEMP 36.8; O2SAT 97; O2SAT 98; BMI 55.0
--- NOTE | 2019-12-31 15:40 | ED_ITS ---
HPI - Weakness General Chief complaint: Dizziness Stated complaint: Dizzy Time Seen by Provider: 12/31/19 15:39 Source: patient Mode of arrival: ambulatory Limitations: no limitations History of Present Illness HPI Narrative: Recent pneumonia a week ago and then was admitted. Now with weakness MD Complaint: generalized weakness Onset (ago): week(s) Duration: intermittent Severity: mild Associated symptoms: shortness of breath Related Data Home Medications Medication Instructions Recorded Confirmed Rodrigo Spicer U-300 Insulin 50 unit SUBCUT QPM 12/26/19 12/26/19 Trulicity 1.5 mg SUBCUT QWEEK 12/26/19 12/26/19 albuterol sulfate 2.5 mg INHALATION QID PRN 12/26/19 12/26/19 albuterol sulfate [ProAir HFA] 2 puff INHALATION Q4-6H PRN 12/26/19 12/26/19 atorvastatin [Lipitor] 20 mg PO DAILY 12/26/19 12/26/19 cetirizine [Zyrtec] 10 mg PO DAILY 12/26/19 12/26/19 clonazepam [Klonopin] 0.5 mg PO BID 12/26/19 12/26/19 clonazepam [Klonopin] 0.5 mg PO DAILY PRN 12/26/19 12/26/19 epinephrine [EpiPen 2-Mykel] 0.3 mg IM NEEDED PRN 12/26/19 12/26/19 levothyroxine 75 mcg PO DAILY@62912/26/19 12/26/19 lisinopril 5 mg PO DAILY 12/26/19 12/26/19 medroxyprogesterone [Provera] 20 mg PO DAILY 12/26/19 12/26/19 metformin 1,000 mg PO BID@0800,1700 12/26/19 12/26/19 metoprolol succinate 50 mg PO DAILY 12/26/19 12/26/19 omeprazole 20 mg PO DAILY@62912/26/19 12/26/19 sertraline [Zoloft] 100 mg PO BID 12/26/19 12/26/19 trazodone 50 mg PO BEDTIME PRN 12/26/19 12/26/19 warfarin 5 mg PO DAILY@1700 12/26/19 12/26/19 Previous Rx's Medication Instructions Recorded cefuroxime axetil 250 mg PO BID #10 tab 12/28/19 prednisone 40 mg PO DAILY #10 tab 12/28/19 Allergies Allergy/AdvReac Type Severity Reaction Status Date / Time Penicillins [PENICILLINS] Allergy Intermediate HIVES Verified 12/27/19 09:43 egg [Egg] Allergy Mild SWELLING Verified 12/27/19 09:43 aspirin Allergy Unknown Unknown Verified 12/27/19 09:43 bee pollen [BEE STINGS] Allergy Unknown UNKNOWN Verified 12/27/19 09:43 lactose [LACTOSE] Allergy Unknown UNKNOWN Verified 12/27/19 09:43 latex [LATEX] Allergy Unknown HIVES Verified 12/27/19 09:43 oxycodone Allergy Unknown Unknown Verified 12/27/19 09:43 peanut [PEANUT] Allergy Unknown UNKNOWN Verified 12/27/19 09:43 penicillin V Allergy Unknown Unknown Verified 12/27/19 09:43 eggs,bees,latex,peanuts Allergy Unknown Unknown Uncoded 12/27/19 09:43 medical tape Allergy Unknown Unknown Uncoded 12/27/19 09:43 TAPE,PLASTIC Allergy Unknown RASH Uncoded 12/27/19 09:43 Review of Systems Constitutional: Constitutional: Reports no additional constitutional complaints Eyes: Eyes: Reports no additional eye complaints ENT: Denies dizziness Cardiovascular: Cardiovascular: Reports no additional cardiovascular complaints Respiratory: Respiratory: Reports as per HPI Gastrointestinal: Gastrointestinal: Reports no additional gastrointestinal complaints Genitourinary: Genitourinary: Reports no additional female genitourinary com plaints Musculoskeletal: Musculoskeletal: Reports no additional musculoskeletal complaints Integumentary/Breasts: Skin/Breast: Denies rash Neurologic: Reports system reviewed and no additional complaints, except as documented, Denies dizziness and Denies Sensory deficit (Neuro) Psychiatric: Psychiatric: Denies anxiety [facility] Past Medical History Medical History (Updated 12/31/19 @ 19:42 by Edson Porter MD) Anxiety Asthma CHF (congestive heart failure) Depression Diabetes mellitus, type 2 Hypertension Hypothyroidism Irritable bowel Mood disorder PTSD (post-traumatic stress disorder) Pulmonary embolism Social History Social History Smoked in Last 30 Days: No Use of substances other than those prescribed or required for medical reasons: No Advance Directives: No Advance Directives Information Provided: No Physical Exam Vital Signs and I&O and Narrative: Vital Signs and I&O: Vital Signs Temp 98.4 F 12/31/19 18:30 Pulse 80 12/31/19 18:30 Resp 22 H 12/31/19 18:30 BP 130/67 12/31/19 18:30 Pulse Ox 98 12/31/19 18:30 Intake & Output 12/31/19 12/31/19 01/01/20 06:59 18:59 06:59 Weight 154.732 kg Body Mass Index 55.0 Const: General: no acute distress Nutritional Appearance: obese Orientation/consciousness: oriented to person and patient oriented x3 Limitations: no limitations HENMT: Head: Yes normal to inspection Ears: external ears normal General nose exam: Normal external nose present Mouth: Normal oral and palatal m ucosa present and oropharynx normal Throat: Yes posterior oropharynx normal Eyes: General: appearance normal, both eyes and all related structures Neck: Other: supple Neck: Yes normal visual inspection Chest: Chest palpation & inspection: normal inspection of the chest Resp: Auscultation: clear to auscultation bilaterally Cardio: Jugular venous distension: no JVD Rate: regular rate Rhythm: regular rhythm Heart sounds: S1 normal heart sound present and S2 normal heart sound present GI: Inspection: Yes normal to inspection Palpation (GI): Soft to palpation, nontender and No hepatosplenomegaly present Auscultation: normal bowel sounds : General: Yes no CVA tenderness Back/Spine/Pelvis: Back: no CVA tenderness Skin: General skin exam: no rashes or lesions noted Neuro: General: oriented to person and patient oriented x3 Cranial nerves: Yes CN's II-XII intact bilaterally Motor exam (neuro): 5/5 motor strength present throughout Sensory Exam: No Sensory deficit (Neuro) Extrem: General: Yes normal to inspection Psych: Appearance: grossly normal Course Course Course Narrative: sugars have been running high, vitals, labs, xray all normal will dc home Reevaluation(s) Reevaluation #1: Chest xray normal Time: 19:39 MDM - Weakness Lab Data Result diagrams: 12/31/19 18:30 12/31/19 18:30 Labs: Lab Results 12/31/19 12/31/19 Range/Units 18:30 18:30 WBC 14.3 H (4.8-10.8) X10*3/uL RBC 4.69 (4.20-5.50) X10*6/uL Hgb 12.9 (12.0-16.0) g/dl Hct 40.7 (37-47) % MCV 86.8 (80-98) fL MCH 27.5 (27.0-33.0) pg MCHC 31.7 (31.0-35.0) g/dl RDW 16.1 H (11.0-16.0) % Plt Count 256 (160-400) X10*3/uL MPV 11.8 (9.4-12.3) fL Immature Gran % (Auto) 1.7 H (0.0-0.4) % Neut % (Auto) 85.9 H (45-73) % Lymph % (Auto) 10.2 L (20-40) % [place] % (Auto) 2.0 (2-11) % Eos % (Auto) 0.1 (0-4) % Baso % (Auto) 0.1 (0-2) % Neut # (Auto) 12.2 H (2.0-8.3) X10*3/uL Lymph # (Auto) 1.5 (1.2-4.9) X10*3/uL [place] # (Auto) 0.3 (0.1-1.2) X10*3/uL Eos # (Auto) 0.0 (0.0-0.4) X10*3/uL Baso # (Auto) 0.0 (0.0-0.2) X10*3/uL Abs Immat Gran (auto) 0.24 H (0.00-0.03) X10*3/uL Absolute Nucleated RBC 0.000 (0.0-0.012) X10*3/uL Nucleated RBC % (auto) 0.0 (0.0-0.2) /100WBC Sodium 138 (135-145) mmol/L Potassium 4.7 D (3.3-5.1) mmol/l Chloride 105 (96-108) mmol/L Carbon Dioxide 24 (22-29) mmol/L Anion Gap 14 (12-20) BUN 14 (9-16) mg/dL Creatinine 1.01 (0.5-1.4) mg/dL Estim Creat Clear Calc 111.6 Estimated GFR > 60 Random Glucose 355 H* (60-115) mg/dL Calcium 8.4 (8.4-10.2) mg/dL ECG Data Attestation: I personally reviewed and interpreted this ECG as follows: ECG interpretation date: 12/31/19 ECG interpretation time: 17:54 Interpretation: sinus rate of 80, flipped ts in I and AVL no other st or twave changes no change from 12/24/19 Discharge Plan Discharge Clinical Impression: Chronic hyperglycemia, Chronic respiratory failure with hypoxia Patient Disposition: Home, Self-Care Instructions: Chronic Respiratory Failure (DC), Hypoglycemia in a Person with Diabetes (ED) Additional Instructions: follow up with your doctor in 2 days Prescriptions: No Action atorvastatin [Lipitor] 20 mg Tablet 20 mg PO DAILY RF: 0 albuterol sulfate 2.5 mg /3 mL (0.083 %) Solution For Nebulization 2.5 mg INHALATION QID PRN (Reason: Allergic Reaction) RF: 0 cetirizine [Zyrtec] 10 mg Tablet 10 mg PO DAILY RF: 0 clonazepam [Klonopin] 0.5 mg Tablet 0.5 mg PO BID RF: 0 clonazepam [Klonopin] 0.5 mg Tablet 0.5 mg PO DAILY PRN (Reason: Anxiety) RF: 0 epinephrine [EpiPen 2-Mykel] 0.3 mg/0.3 mL Auto-Injector 0.3 mg IM NEEDED PRN (Reason: SEVERE ALLERGIC REACTION) RF: 0 Trulicity 1.5 mg/0.5 mL Pen Injector 1.5 mg SUBCUT QWEEK RF: 0 [place] SoloStar U-300 Insulin 300 unit/mL (1.5 mL) Insulin Pen 50 unit SUBCUT QPM RF: 0 medroxyprogesterone [Provera] 10 mg Tablet 20 mg PO DAILY RF: 0 trazodone 50 mg Tablet 50 mg PO BEDTIME PRN (Reason: Allergic Reaction) RF: 0 metoprolol succinate 50 mg Tablet Extended Release 24 Hr 50 mg PO DAILY RF: 0 sertraline [Zoloft] 100 mg Tablet 100 mg PO BID RF: 0 levothyroxine 75 mcg Tablet 75 mcg PO DAILY@0630 RF: 0 metformin 1,000 mg Tablet 1,000 mg PO BID@0800,1700 RF: 0 warfarin 5 mg Tablet 5 mg PO DAILY@1700 RF: 0 omeprazole 20 mg Capsule,Delayed Release(Dr/Ec) 20 mg PO DAILY@0630 RF: 0 lisinopril 5 mg Tablet 5 mg PO DAILY RF: 0 albuterol sulfate [ProAir HFA] 90 mcg/actuation Hfa Aerosol Inhaler 2 puff INHALATION Q4-6H PRN (Reason: COUGH/WHEEZE) RF: 0 prednisone 20 mg Tablet 40 mg PO DAILY Qty: 10 RF: 0 cefuroxime axetil 250 mg tablet 250 mg PO BID Qty: 10 RF: 0
--- NOTE | 2019-12-31 15:59 | ECG_ITS ---
Test Reason : DIZZINESS Blood Pressure : / mmHG Vent. Rate : 082 BPM Atrial Rate : 082 BPM P-R Int : 164 ms QRS Dur : 080 ms QT Int : 400 ms P-R-T Axes : 055 100 104 degrees QTc Int : 467 ms Normal sinus rhythm Possible Left atrial enlargement Rightward axis Cannot rule out Anterior infarct (cited on or before 29-SEP-2019) T-wave inversion in Lateral leads Abnormal ECG When compared with ECG of 24-DEC-2019 14:08, No significant change was found Referred By: Edson Porter Electronically Signed By:MARTIN CASTRO
[2019-12-31 16:11] VITALS: BP 94/47; PULSE 84
[2019-12-31 16:12] VITALS: BP 108/54; PULSE 89
[2019-12-31 16:14] VITALS: BP 98/47; PULSE 95
[2019-12-31 17:38] VITALS: BP 110/62; PULSE 82; RESP 20; O2SAT 99
[2019-12-31 18:30] VITALS: BP 130/67; PULSE 80; RESP 22; TEMP 36.9; O2SAT 98
[2019-12-31 18:42] LABS: MANUAL DIFF FLAG NO
[2019-12-31 18:44] LABS: Basophils Percent Auto 0.1 % (0-2); Eosinophils Percent Auto 0.1 % (0-4); Hematocrit 40.7 % (37-47); Hemoglobin 12.9 g/dl (12.0-16.0); Imm Gran Abs Auto 0.24 X10*3/uL (0.00-0.03); Imm Gran Pct Auto 1.7 % (0.0-0.4); Lymphocytes Absolute Auto 1.5 X10*3/uL (1.2-4.9); Lymphocytes Percent Auto 10.2 % (20-40); Mean Corpuscular HGB Conc 31.7 g/dl (31.0-35.0); Mean Corpuscular Hemoglobin 27.5 pg (27.0-33.0); Mean Corpuscular Volume 86.8 fL (80-98); Mean Platelet Volume 11.8 fL (9.4-12.3); Monocytes Absolute Auto 0.3 X10*3/uL (0.1-1.2); Neutrophils Absolute Auto 12.2 X10*3/uL (2.0-8.3); Neutrophils Percent Auto 85.9 % (45-73); Platelet Count 256 X10*3/uL (160-400); Red Blood Count 4.69 X10*6/uL (4.20-5.50); Red Cell Distribution Width 16.1 % (11.0-16.0); White Blood Count 14.3 X10*3/uL (4.8-10.8)
[2019-12-31 19:25] LABS: Anion Gap 14 (12-20); Blood Urea Nitrogen 14 mg/dL (9-16); Calcium 8.4 mg/dL (8.4-10.2); Carbon Dioxide 24 mmol/L (22-29); Chloride 105 mmol/L (96-108); Creatinine Clr Calc Pharmacy 111.6; Estimated Glomerular Filt Rate > 60; Glucose Random 355 mg/dL (60-115); Potassium 4.7 mmol/l (3.3-5.1); Sodium 138 mmol/L (135-145)
[2019-12-31] MEDS: Insulin Regular, Human 100 UNIT/ML 3 ML VIAL 6 UNIT SUBCUT (20:25)
== END 2019-12-31 20:00 | disposition home or self-care (01) ==
PROVIDERS: Emergency Provider Emergency Medicine
DX: E11.65 Type 2 diabetes mellitus with hyperglycemia (principal); J96.11 Chronic respiratory failure with hypoxia; R42 Dizziness and giddiness; R53.1 Weakness; Z79.01 Long term (current) use of anticoagulants; Z79.899 Other long term (current) drug therapy
CPT/HCPCS: 36415; 71046; 80048; 85025; 93005; 93010; 99284

== ENCOUNTER 2020-01-12 10:17 | Emergency (ER) | payer OTHER, SELFPAY ==
[2020-01-12 10:21] VITALS: BP 144/91; PULSE 95; RESP 16; TEMP 37.3; O2SAT 96; BMI 53.8
--- NOTE | 2020-01-12 10:34 | ED_ITS ---
HPI - General Adult General Chief complaint: General Medical Stated complaint: patient states she was at [facility] when she felt like she was having a low blood sugar, she states she was dizzy, sweaty she checked her blood sugar it was 76. the manager agency at [facility] gave her some orange juice and a glucose tablet and called EMS. patient states EMS told her her blood sugar was up to 156 and she was feeling better however she is still a little sweaty and short of breath, states she recently had pneumonia and stills feels like she has it . patient has asthma on 2 L of home oxygen, 3 L with movement. Patient states she was recently hospitalized for IV antibiotics for her pneumonia. Time Seen by Provider: 01/12/20 10:33 Source: patient Mode of arrival: EMS Limitations: no limitations Related Data Home Medications Medication Instructions Recorded Confirmed Trulicity 1.5 mg SUBCUT QWEEK 12/26/19 12/26/19 albuterol sulfate 2.5 mg INHALATION QID PRN 12/26/19 12/26/19 albuterol sulfate [ProAir HFA] 2 puff INHALATION Q4-6H PRN 12/26/19 12/26/19 atorvastatin [Lipitor] 20 mg PO DAILY 12/26/19 12/26/19 cetirizine [Zyrtec] 10 mg PO DAILY 12/26/19 12/26/19 clonazepam [Klonopin] 0.5 mg PO BID 12/26/19 12/26/19 clonazepam [Klonopin] 0.5 mg PO DAILY PRN 12/26/19 12/26/19 epinephrine [EpiPen 2-Mykel] 0.3 mg IM NEEDED PRN 12/26/19 12/26/19 levothyroxine 75 mcg PO DAILY@62912/26/19 12/26/19 lisinopril 5 mg PO DAILY 12/26/19 12/26/19 medroxyprogesterone [Provera] 20 mg PO DAILY 12/26/19 12/26/19 metformin 1,000 mg PO BID@0800,1700 12/26/19 12/26/19 metoprolol succinate 50 mg PO DAILY 12/26/19 12/26/19 omeprazole 20 mg PO DAILY@62912/26/19 12/26/19 sertraline [Zoloft] 100 mg PO BID 12/26/19 12/26/19 trazodone 50 mg PO BEDTIME PRN 12/26/19 12/26/19 warfarin 5 mg PO DAILY@1700 12/26/19 12/26/19 Previous Rx's Medication Instructions Recorded cefuroxime axetil 250 mg PO BID #10 tab 12/28/19 prednisone 40 mg PO DAILY #10 tab 12/28/19 insulin glargine U-300 conc 300 50 unit SUBCUT BEDTIME 30 Days 01/02/20 unit/mL (3 mL) subcutaneous pen #5.001 ml insulin lispro 100 unit/mL See Rx Instructions SUBCUT TID 30 01/02/20 subcutaneous pen Days #15 syringe Allergies Allergy/AdvReac Type Severity Reaction Status Date / Time Penicillins [PENICILLINS] Allergy Intermediate HIVES Verified 12/27/19 09:43 egg [Egg] Allergy Mild SWELLING Verified 12/27/19 09:43 aspirin Allergy Unknown Unknown Verified 12/27/19 09:43 bee pollen [BEE STINGS] Allergy Unknown UNKNOWN Verified 12/27/19 09:43 lactose [LACTOSE] Allergy Unknown UNKNOWN Verified 12/27/19 09:43 latex [LATEX] Allergy Unknown HIVES Verified 12/27/19 09:43 oxycodone Allergy Unknown Unknown Verified 12/27/19 09:43 peanut [PEANUT] Allergy Unknown UNKNOWN Verified 12/27/19 09:43 penicillin V Allergy Unknown Unknown Verified 12/27/19 09:43 eggs,bees,latex,peanuts Allergy Unknown Unknown Uncoded 12/27/19 09:43 medical tape Allergy Unknown Unknown Uncoded 12/27/19 09:43 TAPE,PLASTIC Allergy Unknown RASH Uncoded 12/27/19 09:43 Review of Systems Constitutional: Constitutional: Denies chills, Reports excessive sweating, Reports fever(s) (subjective) and Denies headache(s) ENT: Reports dizziness and Denies headache(s) Cardiovascular: Cardiovascular: Denies chest pain at rest, Denies chest pain with activity, Reports diaphoresis, Reports dyspnea, Reports dyspnea on exertion and Reports orthopnea Respiratory: Respiratory: Reports chest congestion, Reports cough, Denies hemoptysis, Denies excessive phlegm production, Denies pain on inspiration, Reports dyspnea and Reports dyspnea on exertion Gastrointestinal: Gastrointestinal: Reports no additional gastrointestinal complaints Genitourinary: Genitourinary: Reports no additional female genitourinary complaints Musculoskeletal: Musculoskeletal: Reports no additional musculoskeletal complaints Neurologic: Denies Abnormal speech present, Denies confusion, Reports dizziness and Denies headache(s) Psychiatric: Psychiatric: Denies confusion Endocrine: Endocrine: Reports excessive sweating Allergic/Immunologic: Allergic/Immunologic: Reports no additional allergic/immunologic complaints [facility] Past Medical History Attestation statement: The following information was validated with the patient. Medical History Anxiety Asthma CHF (congestive heart failure) Depression Diabetes mellitus, type 2 Hypertension Hypothyroidism Irritable bowel Mood disorder PTSD (post-traumatic stress disorder) Pulmonary embolism Social History Social History Alcohol intake: never Smoked in Last 30 Days: No Use of substances other than those prescribed or required for medical reasons: No Advance Directives: No Advance Directives Information Provided: Yes Physical Exam Vital Signs: Vital Signs: Vital Signs Temp Pulse Resp BP Pulse Ox 01/12/20 10:21 99.2 F 95 16 144/91 H 96 Body Mass Index 53.8 Const: General: comfortable and no acute distress; No confusion Nutritional Appearance: obese morbidly obese Orientation/consciousness: patient oriented x3 and No confusion HENMT: Head: Yes normal to inspection Face and sinus: Yes normal facial exam Eyes: General: appearance normal, both eyes and all related structures Neck: Neck: Yes normal visual inspection, Yes full ROM and Yes no meningeal signs Resp: Effort & Inspection: normal respiratory effort, able to speak in complete sentences and no use of accessory muscles Auscultation: clear to auscultation bilaterally Cardio: Rate: regular rate Rhythm: regular rhythm GI: Inspection: Yes obesity Palpation (GI): Soft to palpation and nontender Skin: General skin exam: no rashes or lesions noted Neuro: General: patient oriented x3, no meningeal signs and No confusion Speech: No Abnormal speech present Extrem: General: Yes normal to inspection Psych: Mental Status: mental status grossly normal Speech and movement: Normal speech and movement present Course Course Course Narrative: patient is a 44-year-old female with a past medical history of asthma, type 2 diabetes, morbid obesity and was recently hospitalized for acute on chronic respiratory failure with hypoxia and pneumonia, requiring IV antibiotics. today, she states she was waiting in line at [facility], got dizzy sweaty, glucose was 76, after some juice went up to 156 but still feels sweaty and short of breath. Will get EKG, labs and chest x-ray then reassess. Vital signs are stable sans blood pressure 144/91 Medical Decision Making Lab Data Result diagrams: 01/12/20 10:52 01/12/20 10:52 Labs: Lab Results 01/12/20 01/12/20 01/12/20 Range/Units 10:50 10:52 10:52 WBC 8.0 (4.8-10.8) X10*3/uL RBC 4.49 (4.20-5.50) X10*6/uL Hgb 12.3 (12.0-16.0) g/dl Hct 38.5 (37-47) % MCV 85.7 (80-98) fL MCH 27.4 (27.0-33.0) pg MCHC 31.9 (31.0-35.0) g/dl RDW 16.6 H (11.0-16.0) % Plt Count 216 (160-400) X10*3/uL MPV 10.7 (9.4-12.3) fL Immature Gran % (Auto) 0.3 (0.0-0.4) % Neut % (Auto) 71.8 (45-73) % Lymph % (Auto) 20.5 (20-40) % [place] % (Auto) 5.9 (2-11) % Eos % (Auto) 1.1 (0-4) % Baso % (Auto) 0.4 (0-2) % Lymph # (Auto) 1.6 (1.2-4.9) X10*3/uL [place] # (Auto) 0.5 (0.1-1.2) X10*3/uL Eos # (Auto) 0.1 (0.0-0.4) X10*3/uL Baso # (Auto) 0.0 (0.0-0.2) X10*3/uL Abs Immat Gran (auto) 0.02 (0.00-0.03) X10*3/uL Absolute Neuts (auto) 5.7 (2.0-8.3) X10*3/uL Absolute Nucleated RBC 0.000 (0.0-0.012) X10*3/uL Nucleated RBC % (auto) 0.0 (0.0-0.2) /100WBC Sodium 139 (135-145) mmol/L Potassium 4.0 (3.3-5.1) mmol/l Chloride 105 (96-108) mmol/L Carbon Dioxide 25 (22-29) mmol/L Anion Gap 13 (12-20) BUN 7 L (9-16) mg/dL Creatinine 0.82 (0.5-1.4) mg/dL Estim Creat Clear Calc 135.7 Estimated GFR > 60 POC Glucose 209 H (60-115) mg/dL Random Glucose 209 H D (60-115) mg/dL Calcium 8.4 (8.4-10.2) mg/dL Imaging Data Chest x-ray: Attestation: I personally reviewed and interpreted this imaging study as follows: My impression: nothing acute Radiologist's impression: Low lung volumes. No focal consolidation to suggest pneumonia. Mild increase in perihilar markings. ECG Data Attestation: I personally reviewed and interpreted this ECG as follows: Prior ECG tracings: available for review Interpretation: Vent. Rate : 089 BPM Atrial Rate : 089 BPM P-R Int : 158 ms QRS Dur : 076 ms QT Int : 392 ms P-R-T Axes : 056 094 091 degrees QTc Int : 476 ms Normal sinus rhythm Rightward axis Cannot rule out Anterior infarct (cited on or before 29-SEP-2019) Abnormal ECG When compared with ECG of 31-DEC-2019 17:46, No significant change was found Discharge Plan Discharge Clinical Impression: Diabetes mellitus, type 2 Qualifiers: Diabetes mellitus press catcher insulin use: unspecified assisted insulin use status Diabetes mellitus complication status: with hypoglycemia Qualified Code(s): E11.649 - Type 2 diabetes mellitus with hypoglycemia without coma Patient Disposition: Home, Self-Care Instructions: Hypoglycemia in a Person with Diabetes (ED) Prescriptions: No Action insulin glargine U-300 conc [Toujeo Max U-300 SoloStar] 300 unit/mL (3 mL) insulin pen 50 unit subcut BEDTIME 30 Days Qty: 5.001 RF: 3 insulin lispro [Admelog SoloStar U-100 Insulin] 100 unit/mL insulin pen See Rx Instructions subcut TID 30 Days Qty: 15 RF: 3 atorvastatin [Lipitor] 20 mg Tablet 20 mg PO DAILY RF: 0 albuterol sulfate 2.5 mg /3 mL (0.083 %) Solution For Nebulization 2.5 mg INHALATION QID PRN (Reason: Allergic Reaction) RF: 0 cetirizine [Zyrtec] 10 mg Tablet 10 mg PO DAILY RF: 0 clonazepam [Klonopin] 0.5 mg Tablet 0.5 mg PO BID RF: 0 clonazepam [Klonopin] 0.5 mg Tablet 0.5 mg PO DAILY PRN (Reason: Anxiety) RF: 0 epinephrine [EpiPen 2-Mykel] 0.3 mg/0.3 mL Auto-Injector 0.3 mg IM NEEDED PRN (Reason: SEVERE ALLERGIC REACTION) RF: 0 Trulicity 1.5 mg/0.5 mL Pen Injector 1.5 mg SUBCUT QWEEK RF: 0 medroxyprogesterone [Provera] 10 mg Tablet 20 mg PO DAILY RF: 0 trazodone 50 mg Tablet 50 mg PO BEDTIME PRN (Reason: Allergic Reaction) RF: 0 metoprolol succinate 50 mg Tablet Extended Release 24 Hr 50 mg PO DAILY RF: 0 sertraline [Zoloft] 100 mg Tablet 100 mg PO BID RF: 0 levothyroxine 75 mcg Tablet 75 mcg PO DAILY@0630 RF: 0 metformin 1,000 mg Tablet 1,000 mg PO BID@0800,1700 RF: 0 warfarin 5 mg Tablet 5 mg PO DAILY@1700 RF: 0 omeprazole 20 mg Capsule,Delayed Release(Dr/Ec) 20 mg PO DAILY@0630 RF: 0 lisinopril 5 mg Tablet 5 mg PO DAILY RF: 0 albuterol sulfate [ProAir HFA] 90 mcg/actuation Hfa Aerosol Inhaler 2 puff INHALATION Q4-6H PRN (Reason: COUGH/WHEEZE) RF: 0 prednisone 20 mg Tablet 40 mg PO DAILY Qty: 10 RF: 0 cefuroxime axetil 250 mg tablet 250 mg PO BID Qty: 10 RF: 0 Interventions: ED Discharge Assessment Last Done: 01/12/20 12:03 Discharge Date/Time: 01/12/20 13:33
--- NOTE | 2020-01-12 10:40 | XR_ITS ---
EXAMINATION: XR CHEST CLINICAL INFORMATION: Acute pneumonia. Still short of breath. COMPARISON: 12/31/2019. TECHNIQUE: 2 views of the chest were obtained. FINDINGS: Median sternotomy wires are demonstrated with a fracture of the upper sternotomy wire unchanged. The cardiac silhouette is not significantly enlarged. The lung volumes are decreased. There is mild increase in perihilar markings without focal consolidation or pleural effusion. No evidence of pulmonary edema. IMPRESSION: Low lung volumes. No focal consolidation to suggest pneumonia. Mild increase in perihilar markings.
--- NOTE | 2020-01-12 10:40 | ECG_ITS ---
Test Reason : HYPOGLYCEMIA Blood Pressure : / mmHG Vent. Rate : 089 BPM Atrial Rate : 089 BPM P-R Int : 158 ms QRS Dur : 076 ms QT Int : 392 ms P-R-T Axes : 056 094 091 degrees QTc Int : 476 ms Normal sinus rhythm Rightward axis Left atrial enlargement Nonspecific ST abnormality Inferior leads Abnormal ECG When compared with ECG of 31-DEC-2019 17:46, No significant change was found Referred By: Jo-Ann Reddy Electronically Signed By:YAQUELIN DE LA PAZ MD
--- NOTE | 2020-01-12 10:51 | PC.NURSE ---
EKG COMPLETED, POC BEING TAKEN AT THIS TIME AND BLOOD BEING DRAWN WELL. PT AWARE OF PLAN OF CARE AND DENIED HAVING ANY QUESTIONS.
[2020-01-12 10:56] LABS: Glucose, Whole Blood 209 mg/dL (60-115)
[2020-01-12 10:57] LABS: MANUAL DIFF FLAG NO
[2020-01-12 11:03] LABS: Basophils Percent Auto 0.4 % (0-2); Eosinophils Absolute Auto 0.1 X10*3/uL (0.0-0.4); Eosinophils Percent Auto 1.1 % (0-4); Hematocrit 38.5 % (37-47); Hemoglobin 12.3 g/dl (12.0-16.0); Imm Gran Abs Auto 0.02 X10*3/uL (0.00-0.03); Imm Gran Pct Auto 0.3 % (0.0-0.4); Lymphocytes Absolute Auto 1.6 X10*3/uL (1.2-4.9); Lymphocytes Percent Auto 20.5 % (20-40); Mean Corpuscular HGB Conc 31.9 g/dl (31.0-35.0); Mean Corpuscular Hemoglobin 27.4 pg (27.0-33.0); Mean Corpuscular Volume 85.7 fL (80-98); Mean Platelet Volume 10.7 fL (9.4-12.3); Monocytes Absolute Auto 0.5 X10*3/uL (0.1-1.2); Monocytes Percent Auto 5.9 % (2-11); Neutrophils Absolute Auto 5.7 X10*3/uL (2.0-8.3); Neutrophils Percent Auto 71.8 % (45-73); Platelet Count 216 X10*3/uL (160-400); Red Blood Count 4.49 X10*6/uL (4.20-5.50); Red Cell Distribution Width 16.6 % (11.0-16.0)
[2020-01-12 11:44] LABS: Anion Gap 13 (12-20); Blood Urea Nitrogen 7 mg/dL (9-16); Calcium 8.4 mg/dL (8.4-10.2); Carbon Dioxide 25 mmol/L (22-29); Chloride 105 mmol/L (96-108); Creatinine Clr Calc Pharmacy 135.7; Estimated Glomerular Filt Rate > 60; Glucose Random 209 mg/dL (60-115); Sodium 139 mmol/L (135-145)
--- NOTE | 2020-01-12 12:16 | PC.NURSE ---
awaiting chair van
== END 2020-01-12 13:33 | disposition home or self-care (01) ==
PROVIDERS: Physician Assistant; Emergency Provider Emergency Medicine; PCP Internal Medicine
DX: E11.649 Type 2 diabetes mellitus with hypoglycemia without coma (principal); I11.0 Hypertensive heart disease with heart failure; I50.9 Heart failure, unspecified; J45.909 Unspecified asthma, uncomplicated; Z79.4 Long term (current) use of insulin; Z79.899 Other long term (current) drug therapy; Z79.84 Long term (current) use of oral hypoglycemic drugs
CPT/HCPCS: 36415; 71046; 80048; 82947; 85025; 93005; 99283

== ENCOUNTER → 2020-01-31 09:35 | Outpatient (BNVA) | payer OTHER, SELFPAY | PROVIDERS: PCP Internal Medicine; Visit Provider Nurse Practitioner Gerontology | DX: E11.65 Type 2 diabetes mellitus with hyperglycemia (principal); I10 Essential (primary) hypertension; E66.01 Morbid (severe) obesity due to excess calories; Z68.43 Body mass index [BMI] 50.0-59.9, adult | CPT/HCPCS: 99212 ==

== ENCOUNTER 2020-02-24 13:27 | Emergency (ER) | payer OTHER, SELFPAY ==
[2020-02-24 13:51] VITALS: BP 138/86; PULSE 109; RESP 18; TEMP 36.9; O2SAT 98; BMI 56.5
[2020-02-24 13:52] LABS: Glucose, Whole Blood 547 mg/dL (60-115)
[2020-02-24] MEDS: Insulin Lispro 100 UNIT/ML 3 ML VIAL 14 UNIT SUBCUT ×2 (14:28→15:57)
--- NOTE | 2020-02-24 14:34 | ED.RECABL ---
HPI - Recheck/Abnormal Lab/Rx General Chief Complaint: Recheck/Abnormal Lab/Rx Stated Complaint: hyperglycemia Time Seen by Provider: 02/24/20 13:33 Source: patient and EMS Mode of arrival: EMS Limitations: no limitations History of Present Illness HPI narrative: patient diabetic poorly-controlled been here multiple times for hyperglycemia on insulin and metformin noticed high blood sugar since today morning was in 400 range and when EMS checked it was reading very high Related Data Home Medications Medication Instructions Recorded Confirmed albuterol sulfate 2.5 mg INHALATION QID PRN 12/26/19 01/31/20 albuterol sulfate [ProAir HFA] 2 puff INHALATION Q4-6H PRN 12/26/19 01/31/20 atorvastatin [Lipitor] 20 mg PO DAILY 12/26/19 01/31/20 cetirizine [Zyrtec] 10 mg PO DAILY 12/26/19 01/31/20 clonazepam [Klonopin] 0.5 mg PO BID 12/26/19 01/31/20 clonazepam [Klonopin] 0.5 mg PO DAILY PRN 12/26/19 01/31/20 epinephrine [EpiPen 2-Mykel] 0.3 mg IM NEEDED PRN 12/26/19 01/31/20 levothyroxine 75 mcg PO DAILY@62912/26/19 01/31/20 lisinopril 5 mg PO DAILY 12/26/19 01/31/20 medroxyprogesterone [Provera] 20 mg PO DAILY 12/26/19 01/31/20 metformin 1,000 mg PO BID@0800,1700 12/26/19 01/31/20 metoprolol succinate 50 mg PO DAILY 12/26/19 01/31/20 omeprazole 20 mg PO DAILY@0612/26/19 01/31/20 sertraline [Zoloft] 100 mg PO BID 12/26/19 01/31/20 trazodone 50 mg PO BEDTIME PRN 12/26/19 01/31/20 warfarin 5 mg PO DAILY@1700 12/26/19 01/31/20 Previous Rx's Medication Instructions Recorded cefuroxime axetil 250 mg PO BID #10 tab 12/28/19 prednisone 40 mg PO DAILY #10 tab 12/28/19 insulin lispro 100 unit/mL See Rx Instructions SUBCUT TID 30 10/07/20 subcutaneous pen Days #15 syringe dulaglutide 3 mg/0.5 mL 3 mg SUBCUT QWEEK 28 Days #2 ml 01/31/20 subcutaneous pen injector glucose 4 gram chewable tablet 12 g PO Q15M PRN #30 tab 01/31/20 insulin glargine U-300 conc 300 50 unit SUBCUT BEDTIME 30 Days #6 02/19/20 unit/mL (3 mL) subcutaneous pen ml Allergies Allergy/AdvReac Type Severity Reaction Status Date / Time Penicillins [PENICILLINS] Allergy Intermediate HIVES Verified 01/31/20 09:42 egg [Egg] Allergy Mild SWELLING Verified 01/31/20 09:42 aspirin Allergy Unknown Unknown Verified 01/31/20 09:42 bee pollen [BEE STINGS] Allergy Unknown UNKNOWN Verified 01/31/20 09:42 lactose [LACTOSE] Allergy Unknown UNKNOWN Verified 01/31/20 09:42 latex [LATEX] Allergy Unknown HIVES Verified 01/31/20 09:42 oxycodone Allergy Unknown Unknown Verified 01/31/20 09:42 peanut [PEANUT] Allergy Unknown UNKNOWN Verified 01/31/20 09:42 penicillin V Allergy Unknown Unknown Verified 01/31/20 09:42 eggs,bees,latex,peanuts Allergy Unknown Unknown Uncoded 12/27/19 09:43 medical tape Allergy Unknown Unknown Uncoded 12/27/19 09:43 TAPE,PLASTIC Allergy Unknown RASH Uncoded 12/27/19 09:43 Review of Systems Review of Systems: REVIEW OF SYSTEMS: Pertinent positives and negatives are stated above in the history. GEN: no fevers, chills, fatigue HEENT: no nasal congestion, sore throat, ear pain NEURO: no headache, dizziness, focal weakness PULM: no cough, shortness of breath CV: no chest pain, palpitations, LE edema ABD: no abdominal pain, nausea, vomiting, diarrhea : no dysuria, urgency, frequency patient says yeast infection SKIN: no rash ROS otherwise negative x 10 PMFSH Past Medical History Medical History Anxiety Asthma BMI 50.0-59.9, adult CHF (congestive heart failure) Depression Diabetes mellitus, type 2 Diabetes type 2, uncontrolled DVT (deep vein thrombosis) in Essential hypertension Gallstones Hypertension Hypothyroidism Irritable bowel Mood disorder ROGERIO (obstructive sleep apnea) Pancreatitis PTSD (post-traumatic stress disorder) Pulmonary embolism Surgical History History of dental surgery History of open heart surgery Hx of hernia repair Hx of removal of cyst Social History Social History Household Members: None Alcohol intake: never Smoking Status: Never smoker Use of substances other than those prescribed or required for medical reasons: No Advance Directives: No Advance Directives Information Provided: No Physical Exam Vital Signs: Vital Signs: Last Vital Signs Temp 98.4 F 02/24/20 13:51 Pulse 109 H 02/24/20 13:51 Resp 18 02/24/20 13:51 BP 138/86 02/24/20 13:51 Pulse Ox 98 02/24/20 13:51 Body Mass Index 56.5 Appearance: Alert. Oriented X3. obese or overweight, No acute distress. Eyes: Pupils equal, round and reactive to light. ENT: oral mucosa moist Neck: Normal inspection. Neck supple. CVS: Normal heart rate and rhythm. Pulses normal. Respiratory: No respiratory distress. Breath sounds normal. Abdomen: Soft and nontender. no hepatosplenomegaly Skin: Skin warm and dry. Normal skin color. Normal skin turgor. Extremities: No lower extremity edema. Good range of movement Neuro: Oriented X 3. No motor deficit. No sensory deficit. Course Course Course Narrative: patient type 2 diabetic never been in ketoacidosis no other symptom other than high blood sugar which is likely because of noncompliance as in the past patient drinking p.o. fluids blood sugar is coming down patient received Humalog will give another dose of Humalog plan to discharge her home to continue her insulin as prescribed and diet restrictions repeat blood sugar was 378 MDM - Recheck/Abnormal Lab/Rx Lab Data Labs: Lab Results 02/24/20 02/24/20 02/24/20 Range/Units 13:47 14:31 15:34 POC Glucose 547 H* 442 H* (60-115) mg/dL Urine Color YELLOW Urine Appearance CLOUDY Urine pH 6.0 (5.0-8.0) Ur Specific [place] <= 1.005 (1.005-1.025) Urine Protein NEG (NEG-TRACE) MG/DL Urine Glucose (UA) >=1000 H (NEG) MG/DL Urine Ketones NEG (NEG) MG/DL Urine Blood NEG (NEG) Urine Nitrite NEG (NEG) Ur Leukocyte Esterase NEG (NEG) Urine RBC 0-2 (0) /HPF Urine WBC 0-2 (0-4) /HPF Ur Squamous Epith Cells 1+ /LPF Urine Bacteria TRACE /LPF Urine Mucus 1+ /LPF Urine Yeast 1+ /HPF 11/29/20 Range/Units 16:24 POC Glucose 378 H* (60-115) mg/dL Urine Color Urine Appearance Urine pH (5.0-8.0) Ur Specific [place] (1.005-1.025) Urine Protein (NEG-TRACE) MG/DL Urine Glucose (UA) (NEG) MG/DL Urine Ketones (NEG) MG/DL Urine Blood (NEG) Urine Nitrite (NEG) Ur Leukocyte Esterase (NEG) Urine RBC (0) /HPF Urine WBC (0-4) /HPF Ur Squamous Epith Cells /LPF Urine Bacteria /LPF Urine Mucus /LPF Urine Yeast /HPF Discharge Plan Discharge Clinical Impression: Chronic hyperglycemia Diabetes mellitus, type 2 Qualifiers: Diabetes mellitus jail insulin use: with terminal gauger use Diabetes mellitus complication status: without complication Qualified Code(s): E11.9 - Type 2 diabetes mellitus without complications Patient Disposition: Home, Self-Care Instructions: Type 2 Diabetes Management for Adults (ED) Additional Instructions: continue her insulin as prescribed. Diet control as advised. Drink plenty of fluids. Check blood sugar every 6 hours and take insulin as indicated per sliding scale Prescriptions: No Action insulin lispro [Admelog SoloStar U-100 Insulin] 100 unit/mL insulin pen See Rx Instructions subcut TID 30 Days Qty: 15 RF: 3 Toujeo Max U-300 SoloStar 300 unit/mL (3 mL) insulin pen 50 unit subcut BEDTIME 30 Days Qty: 6 RF: 3 atorvastatin [Lipitor] 20 mg Tablet 20 mg PO DAILY RF: 0 albuterol sulfate 2.5 mg /3 mL (0.083 %) Solution For Nebulization 2.5 mg INHALATION QID PRN (Reason: Allergic Reaction) RF: 0 cetirizine [Zyrtec] 10 mg Tablet 10 mg PO DAILY RF: 0 clonazepam [Klonopin] 0.5 mg Tablet 0.5 mg PO BID RF: 0 clonazepam [Klonopin] 0.5 mg Tablet 0.5 mg PO DAILY PRN (Reason: Anxiety) RF: 0 epinephrine [EpiPen 2-Mykel] 0.3 mg/0.3 mL Auto-Injector 0.3 mg IM NEEDED PRN (Reason: SEVERE ALLERGIC REACTION) RF: 0 medroxyprogesterone [Provera] 10 mg Tablet 20 mg PO DAILY RF: 0 trazodone 50 mg Tablet 50 mg PO BEDTIME PRN (Reason: Allergic Reaction) RF: 0 metoprolol succinate 50 mg Tablet Extended Release 24 Hr 50 mg PO DAILY RF: 0 sertraline [Zoloft] 100 mg Tablet 100 mg PO BID RF: 0 levothyroxine 75 mcg Tablet 75 mcg PO DAILY@0630 RF: 0 metformin 1,000 mg Tablet 1,000 mg PO BID@0800,1700 RF: 0 warfarin 5 mg Tablet 5 mg PO DAILY@1700 RF: 0 omeprazole 20 mg Capsule,Delayed Release(Dr/Ec) 20 mg PO DAILY@0630 RF: 0 lisinopril 5 mg Tablet 5 mg PO DAILY RF: 0 albuterol sulfate [ProAir HFA] 90 mcg/actuation Hfa Aerosol Inhaler 2 puff INHALATION Q4-6H PRN (Reason: COUGH/WHEEZE) RF: 0 prednisone 20 mg Tablet 40 mg PO DAILY Qty: 10 RF: 0 cefuroxime axetil 250 mg tablet 250 mg PO BID Qty: 10 RF: 0 Trulicity 3 mg/0.5 mL pen injector 3 mg subcut QWEEK 28 Days Qty: 2 RF: 4 glucose [Dex4 Glucose] 4 gram tablet,chewable 12 g PO Q15M PRN (Reason: hypoglycemia) Qty: 30 RF: 6
[2020-02-24 14:39] LABS: Glucose Urine UA >=1000 MG/DL (NEG); Leukocyte Esterase Urine NEG (NEG); Nitrite Urine NEG (NEG); Specific Gravity - Urine <= 1.005 (1.005-1.025); Urine Blood NEG (NEG); Urine Ketones NEG (NEG); Urine Protein NEG (NEG-TRACE)
[2020-02-24 14:50] LABS: Appearance Urine CLOUDY; Color Urine YELLOW
[2020-02-24 14:51] LABS: RBC Urine 0-2 /HPF (0); Squamous Epithelial Cell Urine 1+ /LPF; WBC Urine 0-2 /HPF (0-4)
[2020-02-24 14:52] LABS: Bacteria Urine TRACE /LPF; Mucus Urine 1+ /LPF
[2020-02-24] MEDS: Fluconazole 150 MG TABLET PO (15:57)
[2020-02-24 16:00] VITALS: BP 131/75; PULSE 91; RESP 22; TEMP 36.6; O2SAT 95
[2020-02-24 16:28] LABS: Glucose, Whole Blood 378 mg/dL (60-115)
[2020-02-24 16:28] LABS: Glucose, Whole Blood 442 mg/dL (60-115)
[2020-02-24 18:00] VITALS: BP 141/71; PULSE 89; RESP 20; TEMP 36.7; O2SAT 96
== END 2020-02-24 18:34 | disposition home or self-care (01) ==
PROVIDERS: Emergency Provider Internal Medicine; PCP Internal Medicine
DX: E11.65 Type 2 diabetes mellitus with hyperglycemia (principal); R79.89 Other specified abnormal findings of blood chemistry; I10 Essential (primary) hypertension; Z79.899 Other long term (current) drug therapy; Z79.84 Long term (current) use of oral hypoglycemic drugs
CPT/HCPCS: 81001; 82947; 99283; 99284

== ENCOUNTER 2020-03-06 11:36 | Outpatient (REF) | payer OTHER, SELFPAY ==
[2020-03-06 13:06] LABS: Cholesterol 140 mg/dL; HDL Cholesterol 45 mg/dL; LDL Cholesterol Calculated 75 mg/dl; Triglycerides 101 mg/dL
[2020-03-06 17:48] LABS: Creatinine Urine 130.53 mg/dL; Microalbum/Creatinine Ratio Ur 75.8 ug/mg cr
[2020-03-07 07:52] LABS: Estimated Average Glucose 303 mg/dL; Hemoglobin A1c % 12.2 %
== END 2020-03-06 11:37 | disposition home or self-care (01) ==
LOC: HO.LAB 11:36
PROVIDERS: PCP Internal Medicine; Visit Provider Nurse Practitioner Gerontology
DX: E11.65 Type 2 diabetes mellitus with hyperglycemia (principal); E11.42 Type 2 diabetes mellitus with diabetic polyneuropathy
CPT/HCPCS: 80061; 82043; 83036

== ENCOUNTER 2020-03-17 20:30 | Emergency (ER) | payer OTHER, SELFPAY ==
--- NOTE | 2020-03-17 21:14 | ED.PSYCH ---
HPI - Psych General Chief Complaint: Psychiatric Symptoms Stated Complaint: crisis Time Seen by Provider: 03/17/20 21:14 Source: patient Mode of arrival: EMS Limitations: no limitations History of Present Illness HPI Narrative: Patient history of depression been here frequently for depression and suicidal feeling came here today as she feeling more depressed because of holidays consult Dr. argueta at this time denies any suicidal ideation at this time MD complaint: feels depressed Related Data Home Medications Medication Instructions Recorded Confirmed albuterol sulfate 2.5 mg INHALATION QID PRN 12/26/19 02/28/20 albuterol sulfate [ProAir HFA] 2 puff INHALATION Q4-6H PRN 12/26/19 02/28/20 atorvastatin [Lipitor] 20 mg PO DAILY 12/26/19 02/28/20 cetirizine [Zyrtec] 10 mg PO DAILY 12/26/19 02/28/20 clonazepam [Klonopin] 0.5 mg PO BID 12/26/19 02/28/20 epinephrine [EpiPen 2-Mykel] 0.3 mg IM NEEDED PRN 12/26/19 02/28/20 levothyroxine 75 mcg PO DAILY@0630 12/26/19 02/28/20 lisinopril 5 mg PO DAILY 12/26/19 02/28/20 medroxyprogesterone [Provera] 20 mg PO DAILY 12/26/19 02/28/20 metformin 1,000 mg PO BID@0800,1700 12/26/19 02/28/20 metoprolol succinate 50 mg PO DAILY 12/26/19 02/28/20 omeprazole 20 mg PO DAILY@0630 12/26/19 02/28/20 sertraline [Zoloft] 100 mg PO BID 12/26/19 02/28/20 trazodone 50 mg PO BEDTIME PRN 12/26/19 02/28/20 warfarin 5 mg PO DAILY@1700 12/26/19 02/28/20 alcohol swabs pad TOPICAL 02/28/20 02/28/20 blood sugar diagnostic #10 ea 02/28/20 02/28/20 clonazepam 1 mg tablet 3 mg PO Q OTHER DAY PRN 02/28/20 02/28/20 doxycycline hyclate 100 mg capsule 100 mg PO Q12H 02/28/20 02/28/20 dulaglutide 1.5 mg/0.5 mL 1.5 mg SUBCUT QWEEK 02/28/20 02/28/20 subcutaneous pen injector flash glucose sensor #1 ea 02/28/20 02/28/20 Previous Rx's Medication Instructions Recorded cefuroxime axetil 250 mg PO BID #10 tab 12/28/19 insulin lispro 100 unit/mL See Rx Instructions SUBCUT TID 30 01/02/20 subcutaneous pen Days #15 syringe glucose 4 gram chewable tablet 12 g PO Q15M PRN #30 tab 01/31/20 insulin glargine U-300 conc 300 50 unit SUBCUT BEDTIME 30 Days #6 02/19/20 unit/mL (3 mL) subcutaneous pen ml Allergies Allergy/AdvReac Type Severity Reaction Status Date / Time Penicillins [PENICILLINS] Allergy Intermediate HIVES Verified 02/28/20 11:47 egg [Egg] Allergy Mild SWELLING Verified 02/28/20 11:47 aspirin Allergy Unknown Unknown Verified 02/28/20 11:47 bee pollen [BEE STINGS] Allergy Unknown UNKNOWN Verified 02/28/20 11:47 lactose [LACTOSE] Allergy Unknown UNKNOWN Verified 02/28/20 11:47 latex [LATEX] Allergy Unknown HIVES Verified 02/28/20 11:47 oxycodone Allergy Unknown Unknown Verified 02/28/20 11:47 peanut [PEANUT] Allergy Unknown UNKNOWN Verified 02/28/20 11:47 penicillin V Allergy Unknown Unknown Verified 02/28/20 11:47 eggs,bees,latex,peanuts Allergy Unknown Unknown Uncoded 02/28/20 11:47 medical tape Allergy Unknown Unknown Uncoded 02/28/20 11:47 TAPE,PLASTIC Allergy Unknown RASH Uncoded 02/28/20 11:47 Review of Systems Review of Systems: Constitutional : No Fever, No Chills ENT/Mouth : No Ear Pain, No Nasal Congestion, No sore throat Eyes: No Eye Pain, No Swelling, No Redness Cardiovascular : No Chest Pain, No SOB Respiratory : No Cough, No Sputum, No Dyspnea Gastrointestinal : No Nausea, No Vomiting, No Diarrhea, No Hematochezia, No Melena Genitourinary : No Dysuria, No Urinary Frequency, No Hematuria Musculoskeletal : No Myalgias Skin : No Skin Lesions, No rash Neuro : No Weakness, No Numbness, No Paresthesias, No Dizziness, No Headache Psych : positive Anxiety, positive Depression, positive SI no HI Heme/Lymph: No Lymphadenopathy Endocrine : No Polyuria, No Polydipsia [facility] Past Medical History Medical History Anxiety Asthma BMI 50.0-59.9, adult Cardiomyopathy CHF (congestive heart failure) Depression Diabetes mellitus, type 2 Diabetes type 2, uncontrolled DVT (deep vein thrombosis) in Essential hypertension Gallstones Hypertension Hypothyroidism Irritable bowel Mood disorder ROGERIO (obstructive sleep apnea) Pancreatitis PTSD (post-traumatic stress disorder) Pulmonary embolism Surgical History History of dental surgery History of open heart surgery Hx of hernia repair Hx of removal of cyst Family History Family History Paternal Grandmother Diabetes Social History Social History Household Members: None Alcohol intake: never Smoking Status: Unknown if ever smoked Advance Directives: No Physical Exam Vital Signs: Vital Signs: Last Vital Signs Temp 97.8 F 03/18/20 01:22 Pulse 89 03/18/20 01:22 Resp 18 03/18/20 01:22 BP 132/61 03/18/20 01:22 Pulse Ox 91 L 03/18/20 01:22 Body Mass Index 53.3 Appearance: Alert. Oriented X3. No acute distress. Eyes: Pupils equal, round and reactive to light. ENT: Pharynx normal. Neck: Normal inspection. Neck supple. CVS: Normal heart rate and rhythm. Pulses normal. Respiratory: No respiratory distress. Breath sounds normal. Abdomen: Soft and nontender. Bowel sounds are present, no mass palpable, no CVA tenderness Skin: Skin warm and dry. Normal skin color. Normal skin turgor. Extremities: No lower extremity edema. Psych: Feel depressed had suicidal thoughts none now no hallucinations Neuro: Oriented X 3. No motor deficit. No sensory deficit. Course Course Course Narrative: Patient seen by crisis will discharge patient home patient has support and will follow up with therapist. Patient feels safe to go home MDM - Psych Restraints Face to Face Assessment: Face to Face Assessment: Current Situation: After assessment of the patient, a review of the pertinent medical record and a discussion with nursing staff, I feel the patient requires a restrain intervention. Reaction To: [] Medical Condition: [] Behavioral State: [] Continued Need: [] Lab Data Labs: Lab Results 03/17/20 Range/Units 21:23 POC Glucose 284 H (60-115) mg/dL Discharge Plan Discharge Clinical Impression: Depression Qualifiers: Depression Type: major depressive disorder Major depression recurrence: recurrent Active/Remission status: currently active Major depression episode severity: moderate Qualified Code(s): F33.1 - Major depressive disorder, recurrent, moderate Patient Disposition: Home, Self-Care Instructions: Depression (ED) Additional Instructions: Continue medication and follow up with therapist Prescriptions: No Action insulin lispro [Admelog SoloStar U-100 Insulin] 100 unit/mL insulin pen See Rx Instructions subcut TID 30 Days Qty: 15 RF: 3 Toujeo Max U-300 SoloStar 300 unit/mL (3 mL) insulin pen 50 unit subcut BEDTIME 30 Days Qty: 6 RF: 3 atorvastatin [Lipitor] 20 mg Tablet 20 mg PO DAILY RF: 0 albuterol sulfate 2.5 mg /3 mL (0.083 %) Solution For Nebulization 2.5 mg INHALATION QID PRN (Reason: Allergic Reaction) RF: 0 cetirizine [Zyrtec] 10 mg Tablet 10 mg PO DAILY RF: 0 clonazepam [Klonopin] 0.5 mg Tablet 0.5 mg PO BID RF: 0 epinephrine [EpiPen 2-Mykel] 0.3 mg/0.3 mL Auto-Injector 0.3 mg IM NEEDED PRN (Reason: SEVERE ALLERGIC REACTION) RF: 0 medroxyprogesterone [Provera] 10 mg Tablet 20 mg PO DAILY RF: 0 trazodone 50 mg Tablet 50 mg PO BEDTIME PRN (Reason: Allergic Reaction) RF: 0 metoprolol succinate 50 mg Tablet Extended Release 24 Hr 50 mg PO DAILY RF: 0 sertraline [Zoloft] 100 mg Tablet 100 mg PO BID RF: 0 levothyroxine 75 mcg Tablet 75 mcg PO DAILY@0630 RF: 0 metformin 1,000 mg Tablet 1,000 mg PO BID@0800,1700 RF: 0 warfarin 5 mg Tablet 5 mg PO DAILY@1700 RF: 0 omeprazole 20 mg Capsule,Delayed Release(Dr/Ec) 20 mg PO DAILY@0630 RF: 0 lisinopril 5 mg Tablet 5 mg PO DAILY RF: 0 albuterol sulfate [ProAir HFA] 90 mcg/actuation Hfa Aerosol Inhaler 2 puff INHALATION Q4-6H PRN (Reason: COUGH/WHEEZE) RF: 0 cefuroxime axetil 250 mg tablet 250 mg PO BID Qty: 10 RF: 0 (DME) FreeStyle Lite Strips Strip See Rx Instructions strip .ROUTE .MEDSUPPLY Qty: 10 RF: 0 (DME) FreeStyle [place] 14 Day Sensor Kit See Rx Instructions ea topical .MEDSUPPLY Qty: 1 RF: 0 clonazepam 1 mg tablet 3 mg PO Q OTHER DAY PRNRF: 0 doxycycline hyclate 100 mg capsule 100 mg PO Q12H RF: 0 alcohol swabs Pads, Medicated topical RF: 0 Trulicity 1.5 mg/0.5 mL pen injector 1.5 mg subcut QWEEK RF: 0 glucose [Dex4 Glucose] 4 gram tablet,chewable 12 g PO Q15M PRN (Reason: hypoglycemia) Qty: 30 RF: 6
[2020-03-17 21:27] LABS: Glucose, Whole Blood 284 mg/dL (60-115)
[2020-03-17 21:29] VITALS: BP 143/77; PULSE 93; RESP 17; TEMP 37; O2SAT 90; BMI 53.3
--- NOTE | 2020-03-17 21:44 | PC.NURSE ---
02 SAT 90 RA, RR 17. Pt reports she uses 2L o2 while resting and 3L with increased movement. Pt currently wearing NC, o2 at 2L. banking services clerk and provider aware.
[2020-03-17 22:23] VITALS: RESP 18
--- NOTE | 2020-03-17 22:32 | PC.NURSE ---
SAMANTHA faxed and called.
--- NOTE | 2020-03-17 23:39 | PC.NURSE ---
Report received. PT is laying in bed quietly. Calm and cooperative. BHN just arrived to see the PT.
[2020-03-18 01:22] VITALS: BP 132/61; PULSE 89; RESP 18; TEMP 36.6; O2SAT 91
--- NOTE | 2020-03-18 01:35 | PC.NURSE ---
Pt moved to main ED for supplemental o2, pt reports wearing o2 PRN and while sleeping. 88% on room air upon ambulation to main ed. responded well to 2l nasal cannula. pending dispo from n
--- NOTE | 2020-03-18 02:28 | PC.NURSE ---
Pt given belongings back in attempt to find ride home. Pt denies si/hi, plan to f/u with providers on out patient basis later this am. Pt aware and agreeable. Currently on phone callong for ride.
--- NOTE | 2020-03-18 02:59 | PC.NURSE ---
awaiting transport via ems home.
--- NOTE | 2020-03-18 04:09 | PC.NURSE ---
PATIENT STATES THAT SHE CAN'T GET INTO HER HOUSE, WILL BE STAYING IN THE ED UNTIL AFTER 7 AM SHE STATES THAT SHE CAN GET IN AT THAT TIME.
== END 2020-03-18 08:01 | disposition home or self-care (01) ==
PROVIDERS: Emergency Provider Internal Medicine
DX: F33.1 Major depressive disorder, recurrent, moderate (principal); I11.0 Hypertensive heart disease with heart failure; I50.9 Heart failure, unspecified; E11.9 Type 2 diabetes mellitus without complications; Z86.718 Personal history of other venous thrombosis and embolism; Z79.4 Long term (current) use of insulin
CPT/HCPCS: 82947; 99285

== ENCOUNTER → 2020-03-31 14:57 | Outpatient (BNVA) | payer OTHER, SELFPAY | PROVIDERS: Visit Provider Nurse Practitioner Gerontology | DX: E11.65 Type 2 diabetes mellitus with hyperglycemia (principal); Z79.4 Long term (current) use of insulin; E78.5 Hyperlipidemia, unspecified; I10 Essential (primary) hypertension; E66.9 Obesity, unspecified; Z68.43 Body mass index [BMI] 50.0-59.9, adult | CPT/HCPCS: 82947; 99212 ==

== ENCOUNTER 2020-04-07 12:18 | Inpatient (IN) | payer OTHER, SELFPAY ==
[2020-04-07] VITALS (9 sets, daily range): BP systolic 121–154; BP diastolic 60–99; PULSE 107–117; RESP 20–24; TEMP 36.1–37; O2SAT 93–97; BMI 37.1
--- NOTE | 2020-04-07 12:27 | PC.NURSE ---
Pt arrived via EMS, cooperative w/ changeover.
--- NOTE | 2020-04-07 12:34 | PC.NURSE ---
Pt w/ small stuffed dog- propellant charge zone assembler aware, pt may keep.
--- NOTE | 2020-04-07 13:05 | ED.PSYCH ---
HPI - Psych General Chief Complaint: Psychiatric Symptoms Stated Complaint: Crisis Time Seen by Provider: 04/07/20 13:05 Source: patient and EMS Mode of arrival: EMS Limitations: no limitations History of Present Illness HPI Narrative: 44 y/o female with history of depression, anxiety, borderline personality disorder, PTSD, reported dissociative identity disorder, morbid obesity, asthma, ROGERIO noncompliant with CPAP, HLD, chronic respiratory failure on PRN O2 who presents with stress episode and SI after hearing that her friend's mother has been given a terminal diagnosis. She reports her mother at age 12 and it brought up significant stress. She is vague on SI and has no plan. She has a history of SI with attempts in the past. She has a visiting nurse who has been administering all of her medications. Denies ETOH or drug use. MD complaint: suicidal ideation, feels depressed and anxiety Onset (ago): hour(s) (5) Duration: constant History of same: Yes Relieving factors: medication Exacerbating factors: none Context: significant life stressor Associated psychiatric symptoms: depression, suicidal ideation and racing thoughts Associated symptoms: denies other symptoms Treatments prior to arrival: none If self harm: admits thoughts of self harm Related Data Home Medications Medication Instructions Recorded Confirmed albuterol sulfate 2.5 mg INHALATION QID PRN 12/26/19 03/31/20 albuterol sulfate [ProAir HFA] 2 puff INHALATION Q4-6H PRN 12/26/19 03/31/20 epinephrine [EpiPen 2-Mykel] 0.3 mg IM NEEDED PRN 12/26/19 04/07/20 lisinopril 5 mg PO DAILY 12/26/19 04/07/20 medroxyprogesterone [Provera] 20 mg PO DAILY 12/26/19 04/07/20 metoprolol succinate 50 mg PO DAILY 12/26/19 04/07/20 omeprazole 20 mg PO DAILY 12/26/19 04/07/20 sertraline [Zoloft] 100 mg PO BID 12/26/19 04/07/20 trazodone 50 mg PO BEDTIME PRN 12/26/19 04/07/20 atorvastatin 20 mg PO DAILY 04/07/20 04/07/20 clonazepam 0.5 tab PO BID 04/07/20 04/07/20 clonazepam 0.5 tab PO DAILY PRN 04/07/20 04/07/20 levothyroxine 75 mcg PO DAILY 04/07/20 04/07/20 loratadine 10 mg PO DAILY 04/07/20 04/07/20 metformin 1,000 mg PO BID 04/07/20 04/07/20 warfarin 10 mg PO DIRECTED 04/07/20 04/07/20 Previous Rx's Medication Instructions Recorded insulin lispro 100 unit/mL See Rx Instructions SUBCUT TID 30 03/31/20 subcutaneous pen Days #30 ml dulaglutide 1.5 mg/0.5 mL 1.5 mg SUBCUT QWEEK #2 ml 04/04/20 subcutaneous pen injector insulin glargine U-300 conc 300 50 unit SUBCUT BEDTIME 30 Days #6 04/04/20 unit/mL (3 mL) subcutaneous pen ml Allergies Allergy/AdvReac Type Severity Reaction Status Date / Time Penicillins [PENICILLINS] Allergy Intermediate HIVES Verified 03/31/20 15:41 egg [Egg] Allergy Mild SWELLING Verified 03/31/20 15:41 aspirin Allergy Unknown Unknown Verified 03/31/20 15:41 bee pollen [BEE STINGS] Allergy Unknown UNKNOWN Verified 03/31/20 15:41 lactose [LACTOSE] Allergy Unknown UNKNOWN Verified 03/31/20 15:41 latex [LATEX] Allergy Unknown HIVES Verified 03/31/20 15:41 oxycodone Allergy Unknown Unknown Verified 03/31/20 15:41 peanut [PEANUT] Allergy Unknown UNKNOWN Verified 03/31/20 15:41 penicillin V Allergy Unknown Unknown Verified 03/31/20 15:41 eggs,bees,latex,peanuts Allergy Unknown Unknown Uncoded 03/31/20 15:41 medical tape Allergy Unknown Unknown Uncoded 03/31/20 15:41 TAPE,PLASTIC Allergy Unknown RASH Uncoded 03/31/20 15:41 Review of Systems Review of Systems: Constitutional: No Fever, No Chills ENT/Mouth: No sore throat, No Rhinorrhea Cardiovascular: No Chest Pain, No SOB Respiratory: No Cough, No Sputum Gastrointestinal: No Nausea, No Vomiting, No Diarrhea, No abdominal Pain Genitourinary: No Dysuria, No Urinary Frequency, No Hematuria Musculoskeletal: No joint pain, No Myalgias Skin: No Skin Lesions, No rash Neuro: No Weakness, No Numbness, No Dizziness, No Headache Psych: + Anxiety/Panic, + Depression PMFSH Past Medical History Attestation statement: The following information was validated with the patient. Medical History Anxiety Asthma BMI 50.0-59.9, adult Cardiomyopathy CHF (congestive heart failure) Depression Diabetes mellitus, type 2 Diabetes type 2, uncontrolled DVT (deep vein thrombosis) in Essential hypertension Gallstones Hyperlipidemia LDL goal <70 Hypertension Hypothyroidism Irritable bowel Mood disorder ROGERIO (obstructive sleep apnea) Pancreatitis PTSD (post-traumatic stress disorder) Pulmonary embolism Surgical History History of dental surgery History of open heart surgery Hx of hernia repair Hx of removal of cyst Family History Family History Paternal Grandmother Diabetes Social History Social History Household Members: None Alcohol intake: never Smoking Status: Never smoker Use of substances other than those prescribed or required for medical reasons: No Advance Directives: No Advance Directives Information Provided: No Physical Exam Vital Signs: Vital Signs: Last Vital Signs Temp 97 F 04/07/20 16:31 Pulse 117 H 04/07/20 17:43 Resp 20 04/07/20 16:31 BP 139/77 04/07/20 17:43 Pulse Ox 94 04/07/20 16:31 Body Mass Index 37.1 Appearance: Alert. Oriented X3. Tearful. Morbidly obese Eyes: Pupils equal, round and reactive to light. ENT: Pharynx normal. Neck: Normal inspection. Neck supple. CVS: Normal heart rate and rhythm. Pulses normal. Respiratory: No respiratory distress. Diminished throughout. Abdomen: obese, soft and nontender. +BS x4 Skin: Skin warm and dry. Normal skin color. Normal skin turgor. No rashes. Extremities: No lower extremity edema. Neuro: Oriented X 3. No motor deficit. No sensory deficit. Course Course Course Narrative: 44 y/o female with multiple medical and psychiatric problems presenting with vague SI after life stressor. Seen by N in the community and told to come to the ER for further evaluation. Will get labs including INR. BHN consulted. MDM - Psych Lab Data Attestation: I reviewed the patient's lab results. Result diagrams: 04/07/20 13:39 04/07/20 13:39 Labs: Lab Results 04/07/20 04/07/20 04/07/20 Range/Units 13:31 13:31 13:39 WBC 8.0 (4.8-10.8) X10*3/uL RBC 5.07 (4.20-5.50) X10*6/uL Hgb 13.2 (12.0-16.0) g/dl Hct 43.2 (37-47) % MCV 85.2 (80-98) fL MCH 26.0 L (27.0-33.0) pg MCHC 30.6 L (31.0-35.0) g/dl RDW 16.6 H (11.0-16.0) % Plt Count 327 D (160-400) X10*3/uL MPV 10.9 (9.4-12.3) fL Immature Gran % (Auto) 0.3 (0.0-0.4) % Neut % (Auto) 62.3 (45-73) % Lymph % (Auto) 29.2 (20-40) % [place] % (Auto) 6.3 (2-11) % Eos % (Auto) 1.1 (0-4) % Baso % (Auto) 0.8 (0-2) % Lymph # (Auto) 2.3 (1.2-4.9) X10*3/uL [place] # (Auto) 0.5 (0.1-1.2) X10*3/uL Eos # (Auto) 0.1 (0.0-0.4) X10*3/uL Baso # (Auto) 0.1 (0.0-0.2) X10*3/uL Abs Immat Gran (auto) 0.02 (0.00-0.03) X10*3/uL Absolute Neuts (auto) 5.0 (2.0-8.3) X10*3/uL Absolute Nucleated RBC 0.000 (0.0-0.012) X10*3/uL Nucleated RBC % (auto) 0.0 (0.0-0.2) /100WBC PT (10.8-13.0) SEC INR (0.9-1.1) Sodium (135-145) mmol/L Potassium (3.3-5.1) mmol/l Chloride (96-108) mmol/L Carbon Dioxide (22-29) mmol/L Anion Gap (12-20) BUN (9-16) mg/dL Creatinine (0.5-1.4) mg/dL Estim Creat Clear Calc Estimated GFR POC Glucose (60-115) mg/dL Random Glucose (60-115) mg/dL Calcium (8.4-10.2) mg/dL Magnesium (1.6-2.6) mg/dL Total Bilirubin (0.0-1.0) mg/dL Direct Bilirubin (0.0-0.5) mg/dL AST (5-31) U/L ALT (0-31) U/L Alkaline Phosphatase (39-117) U/L Total Protein (6.5-8.0) g/dL Albumin (3.5-5.0) g/dL Urine Color YELLOW Urine Appearance CLOUDY Urine pH 6.0 (5.0-8.0) Ur Specific [place] >= 1.030 H (1.005-1.025) Urine Protein 1+ H (NEG-TRACE) MG/DL Urine Glucose (UA) NEG (NEG) MG/DL Urine Ketones NEG (NEG) MG/DL Urine Blood NEG (NEG) Urine Nitrite NEG (NEG) Ur Leukocyte Esterase NEG (NEG) Urine RBC 0-2 (0) /HPF Urine WBC 1-4 (0-4) /HPF Ur Squamous Epith Cells 3+ /LPF Urine Bacteria 1+ /LPF Urine Test NEGATIVE (NEGATIVE) Urine Opiates Screen Not Detected (Not Detect) Ur Barbiturates Screen Not Detected (Not Detect) Ur Phencyclidine Scrn Not Detected (Not Detect) Ur Amphetamines Screen Not Detected (Not Detect) U Benzodiazepines Scrn Not Detected (Not Detect) Urine Cocaine Screen Not Detected (Not Detect) U Marijuana (THC) Screen Not Detected (Not Detect) Ethyl Alcohol mg/dL 04/07/20 04/07/20 04/07/20 Range/Units 13:39 13:39 13:39 WBC (4.8-10.8) X10*3/uL RBC (4.20-5.50) X10*6/uL Hgb (12.0-16.0) g/dl Hct (37-47) % MCV (80-98) fL MCH (27.0-33.0) pg MCHC (31.0-35.0) g/dl RDW (11.0-16.0) % Plt Count (160-400) X10*3/uL MPV (9.4-12.3) fL Immature Gran % (Auto) (0.0-0.4) % Neut % (Auto) (45-73) % Lymph % (Auto) (20-40) % [place] % (Auto) (2-11) % Eos % (Auto) (0-4) % Baso % (Auto) (0-2) % Lymph # (Auto) (1.2-4.9) X10*3/uL [place] # (Auto) (0.1-1.2) X10*3/uL Eos # (Auto) (0.0-0.4) X10*3/uL Baso # (Auto) (0.0-0.2) X10*3/uL Abs Immat Gran (auto) (0.00-0.03) X10*3/uL Absolute Neuts (auto) (2.0-8.3) X10*3/uL Absolute Nucleated RBC (0.0-0.012) X10*3/uL Nucleated RBC % (auto) (0.0-0.2) /100WBC PT 33.0 H D (10.8-13.0) SEC INR 2.7 H (0.9-1.1) Sodium 139 (135-145) mmol/L Potassium 4.4 (3.3-5.1) mmol/l Chloride 103 (96-108) mmol/L Carbon Dioxide 27 (22-29) mmol/L Anion Gap 13 (12-20) BUN 7 L (9-16) mg/dL Creatinine 0.84 (0.5-1.4) mg/dL Estim Creat Clear Calc 106.4 Estimated GFR > 60 POC Glucose (60-115) mg/dL Random Glucose 216 H (60-115) mg/dL Calcium 8.6 (8.4-10.2) mg/dL Magnesium 1.7 (1.6-2.6) mg/dL Total Bilirubin 0.5 (0.0-1.0) mg/dL Direct Bilirubin 0.2 (0.0-0.5) mg/dL AST 15 (5-31) U/L ALT 22 (0-31) U/L Alkaline Phosphatase 84 (39-117) U/L Total Protein 7.2 (6.5-8.0) g/dL Albumin 4.1 (3.5-5.0) g/dL Urine Color Urine Appearance Urine pH (5.0-8.0) Ur Specific [place] (1.005-1.025) Urine Protein (NEG-TRACE) MG/DL Urine Glucose (UA) (NEG) MG/DL Urine Ketones (NEG) MG/DL Urine Blood (NEG) Urine Nitrite (NEG) Ur Leukocyte Esterase (NEG) Urine RBC (0) /HPF Urine WBC (0-4) /HPF Ur Squamous Epith Cells /LPF Urine Bacteria /LPF Urine Test (NEGATIVE) Urine Opiates Screen (Not Detect) Ur Barbiturates Screen (Not Detect) Ur Phencyclidine Scrn (Not Detect) Ur Amphetamines Screen (Not Detect) U Benzodiazepines Scrn (Not Detect) Urine Cocaine Screen (Not Detect) U Marijuana (THC) Screen (Not Detect) Ethyl Alcohol < 10 mg/dL 04/07/20 Range/Units 16:45 WBC (4.8-10.8) X10*3/uL RBC (4.20-5.50) X10*6/uL Hgb (12.0-16.0) g/dl Hct (37-47) % MCV (80-98) fL MCH (27.0-33.0) pg MCHC (31.0-35.0) g/dl RDW (11.0-16.0) % Plt Count (160-400) X10*3/uL MPV (9.4-12.3) fL Immature Gran % (Auto) (0.0-0.4) % Neut % (Auto) (45-73) % Lymph % (Auto) (20-40) % [place] % (Auto) (2-11) % Eos % (Auto) (0-4) % Baso % (Auto) (0-2) % Lymph # (Auto) (1.2-4.9) X10*3/uL [place] # (Auto) (0.1-1.2) X10*3/uL Eos # (Auto) (0.0-0.4) X10*3/uL Baso # (Auto) (0.0-0.2) X10*3/uL Abs Immat Gran (auto) (0.00-0.03) X10*3/uL Absolute Neuts (auto) (2.0-8.3) X10*3/uL Absolute Nucleated RBC (0.0-0.012) X10*3/uL Nucleated RBC % (auto) (0.0-0.2) /100WBC PT (10.8-13.0) SEC INR (0.9-1.1) Sodium (135-145) mmol/L Potassium (3.3-5.1) mmol/l Chloride (96-108) mmol/L Carbon Dioxide (22-29) mmol/L Anion Gap (12-20) BUN (9-16) mg/dL Creatinine (0.5-1.4) mg/dL Estim Creat Clear Calc Estimated GFR POC Glucose 276 H (60-115) mg/dL Random Glucose (60-115) mg/dL Calcium (8.4-10.2) mg/dL Magnesium (1.6-2.6) mg/dL Total Bilirubin (0.0-1.0) mg/dL Direct Bilirubin (0.0-0.5) mg/dL AST (5-31) U/L ALT (0-31) U/L Alkaline Phosphatase (39-117) U/L Total Protein (6.5-8.0) g/dL Albumin (3.5-5.0) g/dL Urine Color Urine Appearance Urine pH (5.0-8.0) Ur Specific [place] (1.005-1.025) Urine Protein (NEG-TRACE) MG/DL Urine Glucose (UA) (NEG) MG/DL Urine Ketones (NEG) MG/DL Urine Blood (NEG) Urine Nitrite (NEG) Ur Leukocyte Esterase (NEG) Urine RBC (0) /HPF Urine WBC (0-4) /HPF Ur Squamous Epith Cells /LPF Urine Bacteria /LPF Urine Test (NEGATIVE) Urine Opiates Screen (Not Detect) Ur Barbiturates Screen (Not Detect) Ur Phencyclidine Scrn (Not Detect) Ur Amphetamines Screen (Not Detect) U Benzodiazepines Scrn (Not Detect) Urine Cocaine Screen (Not Detect) U Marijuana (THC) Screen (Not Detect) Ethyl Alcohol mg/dL Discharge Plan Discharge Clinical Impression: Depression Qualifiers: Depression Type: major depressive disorder Major depression recurrence: recurrent Active/Remission status: currently active Major depression episode severity: severe Psychotic features: without psychotic features Qualified Code(s): F33.2 - Major depressive disorder, recurrent severe without psychotic features Prescriptions: No Action Trulicity 1.5 mg/0.5 mL pen injector 1.5 mg subcut QWEEK Qty: 2 RF: 3 insulin glargine U-300 conc [Toujeo Max U-300 SoloStar] 300 unit/mL (3 mL) insulin pen 50 unit subcut BEDTIME 30 Days Qty: 6 RF: 3 albuterol sulfate 2.5 mg /3 mL (0.083 %) Solution For Nebulization 2.5 mg INHALATION QID PRN (Reason: Allergic Reaction) RF: 0 epinephrine [EpiPen 2-Mykel] 0.3 mg/0.3 mL Auto-Injector 0.3 mg IM NEEDED PRN (Reason: SEVERE ALLERGIC REACTION) RF: 0 medroxyprogesterone [Provera] 10 mg Tablet 20 mg PO DAILY RF: 0 trazodone 50 mg Tablet 50 mg PO BEDTIME PRN (Reason: Sleep) RF: 0 metoprolol succinate 50 mg Tablet Extended Release 24 Hr 50 mg PO DAILY RF: 0 sertraline [Zoloft] 100 mg Tablet 100 mg PO BID RF: 0 omeprazole 20 mg Capsule,Delayed Release(Dr/Ec) 20 mg PO DAILY RF: 0 lisinopril 5 mg Tablet 5 mg PO DAILY RF: 0 albuterol sulfate [ProAir HFA] 90 mcg/actuation Hfa Aerosol Inhaler 2 puff INHALATION Q4-6H PRN (Reason: COUGH/WHEEZE) RF: 0 atorvastatin 20 mg tablet 20 mg PO DAILY RF: 0 clonazepam 1 mg tablet 0.5 tab PO DAILY PRN (Reason: anxiety) RF: 0 clonazepam 1 mg tablet 0.5 tab PO BID RF: 0 levothyroxine 75 mcg tablet 75 mcg PO DAILY RF: 0 loratadine 10 mg tablet 10 mg PO DAILY RF: 0 metformin 1,000 mg tablet 1,000 mg PO BID RF: 0 warfarin 5 mg tablet 10 mg PO DIRECTED RF: 0 insulin lispro [Admelog SoloStar U-100 Insulin] 100 unit/mL insulin pen See Rx Instructions subcut TID 30 Days Qty: 30 RF: 3
[2020-04-07 13:52] LABS: MANUAL DIFF FLAG NO
[2020-04-07 13:53] LABS: Basophils Absolute Auto 0.1 X10*3/uL (0.0-0.2); Basophils Percent Auto 0.8 % (0-2); Eosinophils Absolute Auto 0.1 X10*3/uL (0.0-0.4); Eosinophils Percent Auto 1.1 % (0-4); Hematocrit 43.2 % (37-47); Hemoglobin 13.2 g/dl (12.0-16.0); Imm Gran Abs Auto 0.02 X10*3/uL (0.00-0.03); Imm Gran Pct Auto 0.3 % (0.0-0.4); Lymphocytes Absolute Auto 2.3 X10*3/uL (1.2-4.9); Lymphocytes Percent Auto 29.2 % (20-40); Mean Corpuscular HGB Conc 30.6 g/dl (31.0-35.0); Mean Corpuscular Volume 85.2 fL (80-98); Mean Platelet Volume 10.9 fL (9.4-12.3); Monocytes Absolute Auto 0.5 X10*3/uL (0.1-1.2); Monocytes Percent Auto 6.3 % (2-11); Neutrophils Percent Auto 62.3 % (45-73); Platelet Count 327 X10*3/uL (160-400); Red Blood Count 5.07 X10*6/uL (4.20-5.50); Red Cell Distribution Width 16.6 % (11.0-16.0)
[2020-04-07 14:00] LABS: INTERNATIONAL NORM RATIO 2.7 (0.9-1.1)
[2020-04-07 14:01] LABS: Glucose Urine UA NEG (NEG); Leukocyte Esterase Urine NEG (NEG); Nitrite Urine NEG (NEG); Specific Gravity - Urine >= 1.030 (1.005-1.025); Urine Blood NEG (NEG); Urine Ketones NEG (NEG); Urine Protein 1+ MG/DL (NEG-TRACE)
[2020-04-07] MEDS: clonazePAM 0.5 MG TABLET PO (14:03)
[2020-04-07 14:08] LABS: Appearance Urine CLOUDY; Color Urine YELLOW
[2020-04-07 14:12] LABS: Ethanol < 10 mg/dL
[2020-04-07 14:16] LABS: Alanine Aminotransferase 22 U/L (0-31); Albumin Level 4.1 g/dL (3.5-5.0); Alkaline Phosphatase 84 U/L (39-117); Anion Gap 13 (12-20); Aspartate Amino Transferase 15 U/L (5-31); Bilirubin Direct 0.2 mg/dL (0.0-0.5); Bilirubin Total 0.5 mg/dL (0.0-1.0); Blood Urea Nitrogen 7 mg/dL (9-16); Calcium 8.6 mg/dL (8.4-10.2); Carbon Dioxide 27 mmol/L (22-29); Chloride 103 mmol/L (96-108); Creatinine Clr Calc Pharmacy 106.4; Estimated Glomerular Filt Rate > 60; Glucose Random 216 mg/dL (60-115); Magnesium 1.7 mg/dL (1.6-2.6); Potassium 4.4 mmol/l (3.3-5.1); Sodium 139 mmol/L (135-145); Total Protein 7.2 g/dL (6.5-8.0)
[2020-04-07 14:17] LABS: Amphetamine Screen Urine Not Detected (Not Detect); Barbiturates, Urine Not Detected (Not Detect); Benzodiazepines Screen Urine Not Detected (Not Detect); Cannabinoid Screen Urine Not Detected (Not Detect); Cocaine Screen Urine Not Detected (Not Detect); Opiate Screen Urine Not Detected (Not Detect); Phencyclidine Screen Urine Not Detected (Not Detect)
[2020-04-07 14:29] LABS: RBC Urine 0-2 /HPF (0)
[2020-04-07 14:30] LABS: Bacteria Urine 1+ /LPF; Squamous Epithelial Cell Urine 3+ /LPF
--- NOTE | 2020-04-07 14:57 | PC.NURSE ---
Pt reports some good effect from clonopin given.
[2020-04-07 15:04] LABS: UPreg QC Valid YES; Urine Pregnancy NEGATIVE (NEGATIVE)
--- NOTE | 2020-04-07 15:36 | PC.NURSE ---
[facility] called an faxed.
--- NOTE | 2020-04-07 15:49 | PC.NURSE ---
[facility] called, pharmacy faxed medications. [facility] [place] for medication verification.
[2020-04-07 16:48] LABS: Glucose, Whole Blood 276 mg/dL (60-115)
--- NOTE | 2020-04-07 17:14 | PC.NURSE ---
Pt resting in room. Med rec completed by pharmacy
[2020-04-07] MEDS: Warfarin Sodium 5 MG TABLET 10 MG PO (17:40)
[2020-04-07] MEDS: Insulin Lispro 100 UNIT/ML 3 ML VIAL SUBCUT ×2 (18:05→21:10)
--- NOTE | 2020-04-07 18:34 | PC.NURSE ---
Pt reported she needed an inhaler. Kellie Linda notified. Pt then lowered herself to the ground. Pt currently sitting in chair, resp unlabored.
[2020-04-07] MEDS: Albuterol Sulfate 90 MCG 8 GM INHALER 2 PUFF INHALE (18:39)
[2020-04-07] MEDS: Sertraline HCL 100 MG TABLET PO (20:09)
[2020-04-07] MEDS: clonazePAM 1 MG TABLET 0.5 MG PO (20:09)
--- NOTE | 2020-04-07 20:40 | MHC.CARE ---
Pt referred for [facility] eval ~15:30 - CARE team contacted [facility] at 19:00 re: clinician availability to assess the pt. [facility] hull outfit supervisor reported that there would be no clinicians available until the overnight due to high volume of community based assessments, and it was discussed that CARE team would be completing the evaluation. N hull outfit supervisor contacted CARE team to confirm that [facility] was notified. This scientific technical writer met with pt to complete evaluation. Pt is well connected with outpatient behavioral health supports that are able to manage pt's baseline behaviors and elevated stress and exacerbation of symptoms, however pt demonstrated a significant episode of emotional dysregulation and psychosis during assessment, thus influencing disposition for inpt psychiatric care. CARE team unable to contact [facility] at number listed in pt's chart and was unsuccessful in speaking with someone directly from the agency in order to obtain collateral. CARE team will attempt to reach [facility] in the morning to discuss pt's baseline vs. observed bx during evaluation and current treatment/safety plan. CARE team contacted [facility] hull outfit supervisor again to inquire about previous assessments and dispositions. [facility] hull outfit supervisor reported that pt was assessed 3 times in past 3 years, roughly around the same time each year, and the dispositions were all for utilizing community based supports. Pt will remain in ED pending facility placement.
[2020-04-07] MEDS: traZODone HCL 50 MG TABLET PO ×2 (20:52→21:06)
[2020-04-07 20:59] LABS: Glucose, Whole Blood 236 mg/dL (60-115)
[2020-04-07] MEDS: metFORMIN HCl 1,000 MG TABLET 1000 MG PO (21:06)
[2020-04-07] MEDS: Insulin Glargine,Hum.rec.anlog 100 UNIT/ML 10 ML VIAL 40 UNIT SUBCUT (21:11)
--- NOTE | 2020-04-07 21:31 | PC.NURSE ---
Care team evaluated the patient, pending dispo, patient got upset after speaking with clinician and was found hitting her herself, scheduled klonopin 0.5 mg with + effect, POC was 236 at 2055, covered with sliding scale order, received her scheduled lantus, currently in milieu pleasant, no distress observed/reported, will continue to monitor.
[2020-04-08] VITALS (9 sets, daily range): BP systolic 120–125; BP diastolic 51–75; PULSE 93–114; RESP 18–20; TEMP 36.2–36.6; O2SAT 92–94
--- NOTE | 2020-04-08 07:18 | PC.NURSE ---
Report received from PATRICIO Sheikh. Pt resting, resp unlabored.
[2020-04-08 07:37] LABS: Glucose, Whole Blood 227 mg/dL (60-115)
[2020-04-08] MEDS: Insulin Lispro 100 UNIT/ML 3 ML VIAL SUBCUT ×4 (07:48→21:29)
[2020-04-08] MEDS: clonazePAM 1 MG TABLET 0.5 MG PO ×3 (08:50→21:00)
[2020-04-08] MEDS: Omeprazole 20 MG CAPSULE.DR PO (08:50)
[2020-04-08] MEDS: Loratadine 10 MG TABLET PO (08:50)
[2020-04-08] MEDS: Atorvastatin Calcium 20 MG TABLET PO (08:51)
[2020-04-08] MEDS: Sertraline HCL 100 MG TABLET PO ×2 (08:51→21:00)
[2020-04-08] MEDS: metFORMIN HCl 1,000 MG TABLET 1000 MG PO ×2 (08:51→21:30)
[2020-04-08] MEDS: Levothyroxine Sodium 75 MCG TABLET PO (08:51)
[2020-04-08] MEDS: Metoprolol Succinate ER 50 MG TAB.ER.24H PO (08:52)
[2020-04-08] MEDS: lisinopriL 5 MG TABLET PO (08:52)
[2020-04-08 09:21] LABS: Glucose, Whole Blood 226 mg/dL (60-115)
--- NOTE | 2020-04-08 10:12 | MHC.CARE ---
T/w placed a call to [facility] [place] ([facility]) for pre-certification for pt to be referred to [facility]. T/w provided case presentation and pt was approved as a precert for admission and the case will require an updated MSU and call to [facility] [place] q24hrs to maintain this pre-cert. [facility] at [phone]. Also [facility] [place] suggested that N take the bedsearch back on and will reach out to [facility] [place] managers to obtain clarity on this.
--- NOTE | 2020-04-08 10:17 | MHC.CARE ---
T/w attempted numerous times to contact [facility] providers listed for pt and were no successful based on all clinics and offices are closed due to pandemic concerns. The numbers listed were errors and pt provided one contact for Reina whom is her [facility] foster care case manager and provided a cell number [phone], t/w called and name was Vane and the voice mailbox was full so that no message could be left.
--- NOTE | 2020-04-08 10:33 | MHC.CARE ---
T/w called [facility] to inquire about [facility] process and spoke w supervisor broadloom Olivier who stated he called [facility] himself to tell [facility] that they could not accept the case and that [facility] was taking this case. He further added that if you do the eval then you do the bedsearch , t/w explained pt will be a bedsearch based on clinical assessment. When t/w explained there was difficulty in finding accurate contact info for pt he replied that we could ask medical records at [facility] for past [facility] evals.
--- NOTE | 2020-04-08 11:15 | PC.NURSE ---
Pt affect even, was resting earlier, pt pleasant, no concerns reported.
[2020-04-08 11:28] LABS: Glucose, Whole Blood 221 mg/dL (60-115)
--- NOTE | 2020-04-08 11:42 | MHC.CARE ---
Collateral: t/w placed a call to [facility] due office closure [phone] asking for call backs. Per discussion with [facility] director for [employer] Cherry ([phone]) who has been working with pt for a few years but less so as of late. She reported much of the presentation is the same for the pt ie: baseline except for the taking a knife into the bathroom. She added that the COMPUTER SYSTEMS HARDWARE ANALYST is with pt daily and pt does have her own apt in part with having a COMPUTER SYSTEMS HARDWARE ANALYST and VNA which is called Greta [phone]. T/w also called pts therapist Georgiana from [facility] who stated to continue to use the main number [phone] for contacting her. She has worked with pt for about 1 year (appts via phone), she added she has not seen pt like this in the time knowing her and she could not state if the other bx was baseline. T/w left a message for Arcadio Jaramillo ([phone]) regarding medications or recent changes.
[2020-04-08 13:15] LABS: COVID-19 Test Negative (Negative); IDNOW Serial# 9DD0AD1C
--- NOTE | 2020-04-08 14:05 | MHC.CARE ---
Bedsearch statewide (within 50 miles) completed for pt. The following facilities [facility] open beds and [facility].
[2020-04-08 17:03] LABS: INTERNATIONAL NORM RATIO 2.7 (0.9-1.1)
[2020-04-08 17:26] LABS: Glucose, Whole Blood 278 mg/dL (60-115)
[2020-04-08] MEDS: Warfarin Sodium 5 MG TABLET 10 MG PO (18:09)
--- NOTE | 2020-04-08 18:58 | PC.NURSE ---
Pt cooperative w/ care. Out in milieu eating meal and conversing w/ other patients.
[2020-04-08 21:00] LABS: Glucose, Whole Blood 336 mg/dL (60-115)
[2020-04-08] MEDS: Insulin Glargine,Hum.rec.anlog 100 UNIT/ML 10 ML VIAL 40 UNIT SUBCUT (21:19)
[2020-04-08] MEDS: traZODone HCL 50 MG TABLET PO (22:10)
[2020-04-09] MEDS: Acetaminophen 325 MG TABLET 650 MG PO ×2 (01:58→15:41)
[2020-04-09 07:27] LABS: Glucose, Whole Blood 181 mg/dL (60-115)
[2020-04-09] MEDS: Insulin Lispro 100 UNIT/ML 3 ML VIAL SUBCUT ×4 (07:27→23:06)
[2020-04-09 07:39] LABS: Prothrombin Time 35.5 SEC (10.8-13.0)
[2020-04-09 08:19] VITALS: BP 129/63; PULSE 101; TEMP 36.8; O2SAT 96
[2020-04-09] MEDS: clonazePAM 1 MG TABLET 0.5 MG PO ×2 (08:26→23:07)
[2020-04-09] MEDS: Loratadine 10 MG TABLET PO (08:27)
[2020-04-09] MEDS: Levothyroxine Sodium 75 MCG TABLET PO (08:27)
[2020-04-09] MEDS: Atorvastatin Calcium 20 MG TABLET PO (08:27)
[2020-04-09] MEDS: Omeprazole 20 MG CAPSULE.DR PO (08:27)
[2020-04-09] MEDS: Metoprolol Succinate ER 50 MG TAB.ER.24H PO (08:27)
[2020-04-09] MEDS: Sertraline HCL 100 MG TABLET PO ×2 (08:27→20:58)
[2020-04-09] MEDS: metFORMIN HCl 1,000 MG TABLET 1000 MG PO ×2 (08:27→20:58)
[2020-04-09] MEDS: lisinopriL 5 MG TABLET PO (08:27)
--- NOTE | 2020-04-09 10:31 | MHC.CARE ---
T/w placed follow up calls to Facilities that were faxed clinical yesterday. Jean stated they filled the beds on second and third shift last night. Natan had questions and reviewed with t/w updated info and will re-consider and call back with answer. [facility]as [facility]re[facility] had not made a decision because the packet was misplaced but will re-consider and call back after t/w faxed updated MSU and full packet for review. [facility] stated they refused to accept her based on the fact that pt has need for supplemental O2 at times. T/w alerted Pod of this and per nsg pt only appears to need O2 when during exertion. Pt had not required O2 until this am.
[2020-04-09 11:31] VITALS: RESP 16
--- NOTE | 2020-04-09 11:31 | PC.NURSE ---
patient presently in room resting, will continue to monitor
--- NOTE | 2020-04-09 12:28 | PC.NURSE ---
bharat from [facility] called just asking if the patient had been placed into a bed yet, she was notified that she has not yet been placed and will call us back later this afternoon.
[2020-04-09 12:48] LABS: Glucose, Whole Blood 195 mg/dL (60-115)
--- NOTE | 2020-04-09 13:19 | MHC.CARE ---
Multiple calls to [facility], they do have the clinical and have not reviewed it yet. Met with patient in the common area of the ED BH Pod to discuss her continued bedsearch and possibly explore options for discharging with additional supports through providers. She stated explicitly that she does not feel that going home would be safe, said she knows that she is not ready and cannot be alone at this time. Patient did offer some insight and reported that she is struggling with lack of program support due to the pandemic, in the past when she is struggling one of her providers would be available in person to help her get through things. Feels that she is suddenly left to manage everything herself. Bedsearch continues Waiting for insurance co. to call back so CARE team can offer 24hr update on patient. Advised that someone called [facility] last evening to provide the clinical but was not called back.
--- NOTE | 2020-04-09 13:30 | PC.NURSE ---
patient medicated per sliding scale
--- NOTE | 2020-04-09 15:16 | PC.NURSE ---
Report received. Pt in the common area talking with an other pt at current. Calm and cooperative, no complaints at this time.
--- NOTE | 2020-04-09 16:43 | ECG_ITS ---
Test Reason : SHORTNESS OF BREATH Blood Pressure : / mmHG Vent. Rate : 091 BPM Atrial Rate : 091 BPM P-R Int : 164 ms QRS Dur : 080 ms QT Int : 388 ms P-R-T Axes : 071 091 086 degrees QTc Int : 477 ms Poor data quality Normal sinus rhythm Possible Left atrial enlargement Rightward axis Abnormal ECG When compared with ECG of 12-JAN-2020 10:47, No significant change was found Referred By: Efraín Ansari Electronically Signed By:MATTIE FORREST MD
[2020-04-09 17:04] LABS: Glucose, Whole Blood 277 mg/dL (60-115)
[2020-04-09] MEDS: Warfarin Sodium 5 MG TABLET 10 MG PO (18:16)
--- NOTE | 2020-04-09 20:21 | PC.NURSE ---
Patient in her room, calm and quiet, no distress reported, pending admission to , will continue to monitor.
[2020-04-09 20:34] VITALS: BP 146/74; PULSE 91; RESP 20; TEMP 36.1; O2SAT 96
[2020-04-09 23:04] LABS: Glucose, Whole Blood 249 mg/dL (60-115)
[2020-04-09] MEDS: Insulin Glargine,Hum.rec.anlog 100 UNIT/ML 10 ML VIAL 40 UNIT SUBCUT (23:04)
[2020-04-09] MEDS: traZODone HCL 50 MG TABLET PO (23:21)
--- NOTE | 2020-04-09 23:31 | PC.NURSE ---
this is the first m5 admission for this 44 year old female. legal: CV, dx: ptsd, bpd. this patient has many out patient providers including behavioral katia services thru [facility], [facility] services, [facility] and peer specalists. Patient identifies self as having borderline personality d/o ''i call it the darkness'' on admission reported that she has ''pseudo seizures'' was cooperative to admission process but became upset when she was informed that she could not use her IPAD and that if she wanted to listen to music that she would need to reach out to her staff to obtain wireless head phones. Patient had already been notified that she need to keep her stuffed animal in her room. Patient has multiple medical issues: obesity, hyperlipidemia, diabetes in which she requires insulin and also has a 14 day free kashmir superficial implant that is currently on her l outer upper arm. was upset when informed that her glucose could still be monitored for her outpatient physician (her phone can record readings) but that she would still require POC QID for the [facility] data base. reports use of a cpap machine and encouraged to bring it into the hospital. is on coumadin and has hx of PE and dvt per self report. Labs ordered for INR for am. reports that covid has decreased activites she enjoys including going to movies with peer specialists. after admission process was complete, requested medications. while standing infront of nurses station, fell to the ground (pseudo seizure) was aware of surroundings, was verbal. requested her stuff animal but was told she could have that in her room when on her feet. accepted a warm blanket and when she was ready got up on her own from the floor. no noted injury but may expect bruising as she is on coumadin. walked independent;y to room with staff at side after incident. no drug or alcohol use noted.
[2020-04-10] MEDS: hydrOXYzine HCL 25 MG TABLET PO (00:33)
[2020-04-10] MEDS: traZODone HCL 50 MG TABLET PO ×2 (00:33→21:30)
[2020-04-10 06:26] LABS: Glucose, Whole Blood 166 mg/dL (60-115)
[2020-04-10 06:30] VITALS: BP 106/57; PULSE 91; RESP 18; TEMP 36.8; O2SAT 92
[2020-04-10] MEDS: Insulin Lispro 100 UNIT/ML 3 ML VIAL SUBCUT ×4 (08:36→21:18)
[2020-04-10] MEDS: metFORMIN HCl 1,000 MG TABLET 1000 MG PO ×2 (08:37→21:20)
[2020-04-10] MEDS: Omeprazole 20 MG CAPSULE.DR PO (08:37)
[2020-04-10] MEDS: Loratadine 10 MG TABLET PO (08:37)
[2020-04-10 08:38] VITALS: BP 106/57; PULSE 91
[2020-04-10] MEDS: Metoprolol Succinate ER 50 MG TAB.ER.24H PO (08:38)
[2020-04-10] MEDS: Sertraline HCL 100 MG TABLET PO ×2 (08:38→21:20)
[2020-04-10] MEDS: clonazePAM 1 MG TABLET 0.5 MG PO ×2 (08:40→21:20)
[2020-04-10 08:47] LABS: INTERNATIONAL NORM RATIO 3.2 (0.9-1.1); Prothrombin Time 38.3 SEC (10.8-13.0)
[2020-04-10 09:24] VITALS: BP 106/57; PULSE 91
[2020-04-10] MEDS: Levothyroxine Sodium 75 MCG TABLET PO (09:24)
[2020-04-10] MEDS: Atorvastatin Calcium 20 MG TABLET PO (09:24)
[2020-04-10] MEDS: lisinopriL 5 MG TABLET PO (09:24)
[2020-04-10 11:44] LABS: Glucose, Whole Blood 188 mg/dL (60-115)
[2020-04-10 13:43] VITALS: BMI 51.7
[2020-04-10 17:25] LABS: Glucose, Whole Blood 285 mg/dL (60-115)
[2020-04-10 18:00] VITALS: BP 139/92; PULSE 101; TEMP 37
--- NOTE | 2020-04-10 18:28 | HO.PSYADMNOT ---
HPI Chief Complaint: Crisis Sources of Information: patient interviewed, chart reviewed and crisis/core team assessment reviewed HPI Narrative: Ms. Mccann is a 44 year-old woman with hx of PTSD, BPD who arrived [facility] via EMS after pt told her therapist that she had locked in herself in her room with a knife reporting suicidal ideation after after friend told her that friend's mother was dying which apparently triggered pt's own emotional struggles when her mother when pt was 12 years old. In the ED, pt did not have any injuries but continued to report suicidal ideation. In the ED, pt apparently talking about having different personalities and the darkness trying to take over her. Pt was observed in ED punching self on head. On the unit, pt presents with blunted affect. Pt reports that reason for coming to the hospital is My borderline personality disorder is acting up. Pt reports that when overwhelmed she does into dark personality. She describes herself as someone who usually is kind, calm, joking but at times when in dark mood she want to hurt people and laugh about them. Pt reports that some triggers include feeling like people are lying to her and don't keep their word. She reports she struggles with chronic suicidal thoughts. She states I take it day by day. On admission, pt endorses depressed mood, feeling hopeless/helpless, little motivation to engage in activities that she enjoys such as listening to music. She reports passive suicidal thoughts but denies any plan or intent to hurt herself or others. Pt vague about history of suicide attempts. Past Psychiatric History: Inpatient admission: hx of inpatient admission but no details available. Pt not able or willing to provide this information. Outpatient: [facility] ([phone]) prescriber Arcadio Jaramillo; therapist Georgiana. She also has peers specialist, Reina and window caser Cherry. Medical Evaluation Reviewed: Yes Pt on warfarin, monitor INR daily while inpatient [facility] Medical History Anxiety Asthma BMI 50.0-59.9, adult Cardiomyopathy CHF (congestive heart failure) Depression Diabetes mellitus, type 2 Diabetes type 2, uncontrolled DVT (deep vein thrombosis) in Essential hypertension Gallstones Hyperlipidemia LDL goal <70 Hypertension Hypothyroidism Irritable bowel Mood disorder ROGERIO (obstructive sleep apnea) Pancreatitis PTSD (post-traumatic stress disorder) Pulmonary embolism Surgical History History of dental surgery History of open heart surgery Hx of hernia repair Hx of removal of cyst Diagnostics Vital Signs (24Hr): Vital Signs - 24 hr 04/09/20 20:34 04/10/20 06:30 04/10/20 08:38 Temperature 97 F 98.2 F Pulse Rate 91 91 91 Respiratory Rate 20 18 Blood Pressure 146/74 H 106/57 L 106/57 L Pulse Oximetry 96 92 04/10/20 09:24 Temperature Pulse Rate 91 Respiratory Rate Blood Pressure 106/57 L Pulse Oximetry Body Mass Index 51.7 Labs Results: 04/07/20 13:39 04/07/20 13:39 Labs: Laboratory Results - last 48 hr 04/08/20 04/09/20 04/09/20 20:56 07:22 07:28 PT 35.5 H INR 3.0 H POC Glucose 336 H 181 H 04/09/20 04/09/20 04/09/20 12:39 17:01 23:00 PT INR POC Glucose 195 H 277 H 249 H 04/10/20 04/10/20 04/10/20 06:22 08:18 11:34 PT 38.3 H INR 3.2 H POC Glucose 166 H 188 H 04/10/20 16:58 PT INR POC Glucose 285 H Meds/Allergies Meds Home Medications Acetaminophen (Acetaminophen 325 Mg Tablet) 650 mg PO Q6H PRN PRN Reason: Headache/Pain Mild Scale (1-3) Al Hydroxide/Mg Hydroxide (Magnesium Hydrox/Alum Hydrox 30 Ml Oral.Susp) 30 ml PO Q6H PRN PRN Reason: Heartburn/Nausea Al Hydroxide/Mg Hydroxide (Magnesium Hydrox/Alum Hydrox 30 Ml Oral.Susp) 30 ml PO Q6H PRN PRN Reason: Heartburn/Nausea Albuterol Sulfate (Albuterol Sulfate 90 Mcg 8 Gm Inhaler) 2 puff INHALE RQ4H PRN PRN Reason: Wheezing, dyspnea Atorvastatin Calcium (Atorvastatin Calcium 20 Mg Tablet) 20 mg PO DAILY [facility] Last Admin: 04/11/20 09:41 Dose: 20 mg Documented by: Clonazepam (Clonazepam 0.5 Mg Tablet) 0.5 mg PO BID CLAIRE Last Admin: 04/11/20 21:21 Dose: 0.5 mg Documented by: Clonazepam (Clonazepam 0.5 Mg Tablet) 0.5 mg PO DAILY PRN PRN Reason: anxiety Hydroxyzine HCl (Hydroxyzine Hcl 25 Mg Tablet) 25 mg PO BEDTIME PRN PRN Reason: Anxiety Last Admin: 04/12/20 00:45 Dose: 25 mg Documented by: Insulin Glargine (Insulin Glargine,Hum.Rec.Anlog 100 Unit/Ml 10 Ml Vial) 40 unit SUBCUT BEDTIME [facility] Last Admin: 04/11/20 21:15 Dose: 40 unit Documented by: Insulin Human Lispro (Insulin Lispro 100 Unit/Ml 3 Ml Vial) 0 unit SUBCUT QIDACHS [facility]; Protocol Last Admin: 04/11/20 21:17 Dose: 8 unit Documented by: Levothyroxine Sodium (Levothyroxine Sodium 75 Mcg Tablet) 75 mcg PO DAILY [facility] Last Admin: 04/11/20 09:42 Dose: 75 mcg Documented by: Lisinopril (Lisinopril 5 Mg Tablet) 5 mg PO DAILY [facility]; Protocol Last Admin: 04/11/20 09:42 Dose: 5 mg Documented by: Loratadine (Loratadine 10 Mg Tablet) 10 mg PO DAILY [facility] Last Admin: 04/11/20 09:42 Dose: 10 mg Documented by: Magnesium Hydroxide (Milk Of Magnesia 30 Ml Oral.Susp) 30 ml PO DAILY PRN PRN Reason: Constipation Metformin HCl (Metformin Hcl 1,000 Mg Tablet) 1,000 mg PO BID [facility] Last Admin: 04/11/20 21:21 Dose: 1,000 mg Documented by: Metoprolol Succinate (Metoprolol Succinate Er 50 Mg Tab.Er.24h) 50 mg PO DAILY [facility]; Protocol Last Admin: 04/11/20 09:41 Dose: 50 mg Documented by: Non-Formulary Medication (Dulaglutide [Trulicity]) 1.5 mg SUBCUT Fr@0900 [facility] Non-Formulary Medication (Medroxyprogesterone [Provera]) 20 mg PO DAILY [facility] Omeprazole (Omeprazole 20 Mg Capsule.Dr) 20 mg PO DAILY [facility] Last Admin: 04/11/20 09:42 Dose: 20 mg Documented by: Sertraline HCl (Sertraline Hcl 100 Mg Tablet) 100 mg PO BID [facility] Last Admin: 04/11/20 21:20 Dose: 100 mg Documented by: Trazodone HCl (Trazodone Hcl 50 Mg Tablet) 50 mg PO BEDTIME PRN PRN Reason: Sleep Last Admin: 04/10/20 21:30 Dose: 50 mg Documented by: Trazodone HCl (Trazodone Hcl 50 Mg Tablet) 50 mg PO BEDTIME PRN PRN Reason: Insomnia Last Admin: 04/12/20 00:45 Dose: 50 mg Documented by: Allergies Allergies Allergy/AdvReac Type Severity Reaction Status Date / Time Penicillins [PENICILLINS] Allergy Intermediate HIVES Verified 03/31/20 15:41 egg [Egg] Allergy Mild SWELLING Verified 03/31/20 15:41 aspirin Allergy Unknown Unknown Verified 03/31/20 15:41 bee pollen [BEE STINGS] Allergy Unknown UNKNOWN Verified 03/31/20 15:41 lactose [LACTOSE] Allergy Unknown UNKNOWN Verified 03/31/20 15:41 latex [LATEX] Allergy Unknown HIVES Verified 03/31/20 15:41 oxycodone Allergy Unknown Unknown Verified 03/31/20 15:41 peanut [PEANUT] Allergy Unknown UNKNOWN Verified 03/31/20 15:41 penicillin V Allergy Unknown Unknown Verified 03/31/20 15:41 eggs,bees,latex,peanuts Allergy Unknown Unknown Uncoded 03/31/20 15:41 medical tape Allergy Unknown Unknown Uncoded 03/31/20 15:41 TAPE,PLASTIC Allergy Unknown RASH Uncoded 03/31/20 15:41 Mental Status Exam Mental Status Exam Narrative: Appearance: [place] woman, wearing hospital gown, disheveled, in NAD Behavior: guarded, superficially cooperative Speech: clear, normal rate/rhythm/volume, spontaneous Psychomotor: no agitation or retardation noted Mood: I don't care anymore Affect: blunted AH/VH: none Delusions: none Insight/judgment: poor x 2. Memory/cog: alert, oriented x 3. Assessment & Plan Assessment & Plan (1) Borderline personality disorder: Status: Acute Code(s): F60.3 - Borderline personality disorder Assessment and Plan: 1. continue current medication (2) Depression: Status: Acute Qualifiers: Active/Remission status: currently active Depression Type: major depressive disorder Major depression episode severity: severe Major depression recurrence: recurrent Psychotic features: without psychotic features Qualified Code(s): F33.2 - Major depressive disorder, recurrent severe without psychotic features Code(s): F32.9 - Major depressive disorder, single episode, unspecified Assessment and Plan: 1. continue current medications Patient educated on: diagnosis, medication risk/benefits and therapeutic strategies Informed Consent: understands Reason for continued inpatient stay Substantial Risk for: harm to self
[2020-04-10 21:12] LABS: Glucose, Whole Blood 300 mg/dL (60-115)
[2020-04-10] MEDS: Insulin Glargine,Hum.rec.anlog 100 UNIT/ML 10 ML VIAL 40 UNIT SUBCUT (21:19)
--- NOTE | 2020-04-11 | ECG_ITS ---
Test Reason : Pt reporting chest tightness, H/O asthma, O2 sat 95% Blood Pressure : / mmHG Vent. Rate : 092 BPM Atrial Rate : 092 BPM P-R Int : 176 ms QRS Dur : 082 ms QT Int : 386 ms P-R-T Axes : 051 094 091 degrees QTc Int : 477 ms Normal sinus rhythm Rightward axis Borderline ECG When compared with ECG of 09-APR-2020 17:17, No significant change was found Referred By: Erasto Jim Electronically Signed By:MATTIE FORREST MD
[2020-04-11 06:00] VITALS: BP 128/68; PULSE 88; RESP 18; TEMP 36.5; O2SAT 92
[2020-04-11 06:48] LABS: Glucose, Whole Blood 157 mg/dL (60-115)
[2020-04-11 08:20] LABS: INTERNATIONAL NORM RATIO 2.6 (0.9-1.1); Prothrombin Time 30.6 SEC (10.8-13.0)
[2020-04-11] MEDS: Insulin Lispro 100 UNIT/ML 3 ML VIAL SUBCUT ×4 (09:38→21:17)
[2020-04-11] MEDS: clonazePAM 1 MG TABLET 0.5 MG PO (09:40)
[2020-04-11 09:41] VITALS: BP 128/68; PULSE 88
[2020-04-11] MEDS: Metoprolol Succinate ER 50 MG TAB.ER.24H PO (09:41)
[2020-04-11] MEDS: Atorvastatin Calcium 20 MG TABLET PO (09:41)
[2020-04-11 09:42] VITALS: BP 128/68; PULSE 88
[2020-04-11] MEDS: Loratadine 10 MG TABLET PO (09:42)
[2020-04-11] MEDS: Sertraline HCL 100 MG TABLET PO ×2 (09:42→21:20)
[2020-04-11] MEDS: metFORMIN HCl 1,000 MG TABLET 1000 MG PO ×2 (09:42→21:21)
[2020-04-11] MEDS: Omeprazole 20 MG CAPSULE.DR PO (09:42)
[2020-04-11] MEDS: Levothyroxine Sodium 75 MCG TABLET PO (09:42)
[2020-04-11] MEDS: lisinopriL 5 MG TABLET PO (09:42)
[2020-04-11 11:57] LABS: Glucose, Whole Blood 244 mg/dL (60-115)
[2020-04-11 17:00] LABS: Glucose, Whole Blood 164 mg/dL (60-115)
[2020-04-11 18:00] VITALS: BP 122/59; BP 144/65; PULSE 101; PULSE 96; TEMP 36.2; TEMP 36.3; O2SAT 93; O2SAT 94
[2020-04-11 21:14] LABS: Glucose, Whole Blood 310 mg/dL (60-115)
[2020-04-11] MEDS: Insulin Glargine,Hum.rec.anlog 100 UNIT/ML 10 ML VIAL 40 UNIT SUBCUT (21:15)
[2020-04-11] MEDS: clonazePAM 0.5 MG TABLET PO (21:21)
--- NOTE | 2020-04-11 23:28 | PM.EVENT ---
Event Note Date of Service: 04/12/20 Event Note: Asked by nursing staff to evaluate chest tightness, dyspnea. 44 year old woman being treated in inpt psych unit with hx obesity, asthma, DM type 2, DVT/PE on Coumadin was noted to have some chest tightness earlier. Not associated with activity. Per staff she was anxious at the time over Coumadin dosing adjustment. States very infrequent asthma exacerbations and only uses prn Albuterol at home. Currently feels better-no dyspnea or productive cough. No fevers. Exam: Sleeping quietly, no distress. Chest: normal resp effort, no insp crackles or exp wheeses heard CV: regular rate, no murmur. Distant heart sounds. A/P: 44 year old with chest tightness associated with anxiety episode. Chest tightness Could be bronchospasm or mild reactive airway. Will order prn albuterol inhaler. EKG reviewed-showed NSR with rightward axis. When compared to prior there has been no change. She does have hx of DVT/PE but is already anticoagulated and has a therapeutic INR so doubt there would be any change in management if she had PE as she is hemodynamically stable. As such no indication for CT Angio. Please call us if new issues arise.
[2020-04-12] MEDS: hydrOXYzine HCL 25 MG TABLET PO (00:45)
[2020-04-12] MEDS: traZODone HCL 50 MG TABLET PO (00:45)
--- NOTE | 2020-04-12 01:18 | PC.NURSE ---
0110: STAT EKG DONE AT 0029. RESULTS CALLED TO DR MONTGOMERY AT 0110. PT IS ASYMPTOMATIC AT THIS TIME. NO NEW ORDERS.
--- NOTE | 2020-04-12 06:31 | P.PNPSI_ITS ---
Subjective Subjective Date of Service: 04/12/20 Reason For Visit: suicidal ideation Subjective Notes: Conditional Voluntary Interim History: Pt has been mostly in bed. Pt reports sleeping well. She continues to endorse depressed mood, states no one cares, it doesn't matter any more. When asked about suicidal thoughts she denies any plan or intent. She denies VH/AH. She states she needs to be in hospital and endorse feeling anxious. Pt encouraged to attent groups. Medication Compliance: Yes Side effects from medications: No Review of Systems Review of Systems Constitutional: No Fever, No Chills ENT/Mouth: No sore throat, No Rhinorrhea Cardiovascular: No Chest Pain, No SOB Respiratory: No Cough, No Sputum Gastrointestinal: No Nausea, No Vomiting, No Diarrhea, No abdominal Pain Genitourinary: No Dysuria, No Urinary Frequency, No Hematuria Musculoskeletal: No joint pain, No Myalgias Skin: No Skin Lesions, No rash Neuro: No Weakness, No Numbness, No Dizziness, No Headache Psych: + Anxiety/Panic, + Depression Mental Status Exam Mental Status Exam Narrative: Appearance: [place] woman, wearing hospital gown, disheveled, in NAD Behavior: guarded, superficially cooperative Speech: clear, normal rate/rhythm/volume, spontaneous Psychomotor: no agitation or retardation noted Mood: I don't care anymore Affect: blunted AH/VH: none Delusions: none Insight/judgment: poor x 2. Memory/cog: alert, oriented x 3. Diagnostics Vital Signs (24Hr): Vital Signs - 24 hr 04/11/20 09:41 04/11/20 09:42 04/11/20 18:00 Temperature 97.4 F Pulse Rate 88 88 101 H Blood Pressure 128/68 128/68 122/59 L Pulse Oximetry 94 Body Mass Index 51.7 Labs Results: 04/07/20 13:39 04/07/20 13:39 Labs: Laboratory Results - last 48 hr 04/10/20 04/10/20 04/10/20 08:18 11:34 16:58 PT 38.3 H INR 3.2 H POC Glucose 188 H 285 H 04/10/20 04/11/20 04/11/20 21:07 06:30 07:54 PT 30.6 H D INR 2.6 H POC Glucose 300 H 157 H 04/11/20 04/11/20 04/11/20 11:45 16:51 21:10 PT INR POC Glucose 244 H 164 H 310 H Medications Medications Current Medications Generic Name Dose Route Start Last Admin Trade Name Ken PRN Reason Stop Dose Admin Acetaminophen 650 mg 04/09/20 21:32 Acetaminophen 325 Mg Tablet PO Q6H PRN Headache/Pain Mild Scale (1-3) Al Hydroxide/Mg Hydroxide 30 ml 04/09/20 19:21 Magnesium Hydrox/Alum Hydrox 30 Ml Oral.Susp PO Q6H PRN Heartburn/Nausea Al Hydroxide/Mg Hydroxide 30 ml 04/09/20 21:32 Magnesium Hydrox/Alum Hydrox 30 Ml Oral.Susp PO Q6H PRN Heartburn/Nausea Albuterol Sulfate 2 puff 04/11/20 23:26 Albuterol Sulfate 90 Mcg 8 Gm Inhaler INHALE RQ4H PRN Wheezing, dyspnea Atorvastatin Calcium 20 mg 04/07/20 17:30 04/11/20 09:41 Atorvastatin Calcium 20 Mg Tablet PO 20 mg DAILY [facility] Administration Clonazepam 0.5 mg 04/11/20 21:00 04/11/20 21:21 Clonazepam 0.5 Mg Tablet PO 0.5 mg BID [facility] Administration Clonazepam 0.5 mg 04/11/20 10:00 Clonazepam 0.5 Mg Tablet PO DAILY PRN anxiety Hydroxyzine HCl 25 mg 04/09/20 21:32 04/12/20 00:45 Hydroxyzine Hcl 25 Mg Tablet PO 25 mg BEDTIME PRN Administration Anxiety Insulin Glargine 40 unit 04/07/20 21:00 04/11/20 21:15 Insulin Glargine,Hum.Rec.Anlog 100 Unit/Ml 10 Ml Vial SUBCUT 40 unit BEDTIME [facility] Administration Insulin Human Lispro 0 unit 04/07/20 21:00 04/11/20 21:17 Insulin Lispro 100 Unit/Ml 3 Ml Vial SUBCUT 8 unit QIDACHS [facility] Administration Protocol Levothyroxine Sodium 75 mcg 04/07/20 17:30 04/11/20 09:42 Levothyroxine Sodium 75 Mcg Tablet PO 75 mcg DAILY [facility] Administration Lisinopril 5 mg 04/07/20 18:00 04/11/20 09:42 Lisinopril 5 Mg Tablet PO 5 mg DAILY [facility] Administration Protocol Loratadine 10 mg 04/07/20 17:30 04/11/20 09:42 Loratadine 10 Mg Tablet PO 10 mg DAILY [facility] Administration Magnesium Hydroxide 30 ml 04/09/20 21:32 Milk Of Magnesia 30 Ml Oral.Susp PO DAILY PRN Constipation Metformin HCl 1,000 mg 04/07/20 21:00 04/11/20 21:21 Metformin Hcl 1,000 Mg Tablet PO 1,000 mg BID [facility] Administration Metoprolol Succinate 50 mg 04/07/20 17:30 04/11/20 09:41 Metoprolol Succinate Er 50 Mg Tab.Er.24h PO 50 mg DAILY [facility] Administration Protocol Non-Formulary Medication 1.5 mg 04/11/20 09:00 Dulaglutide [Trulicity] SUBCUT Fr@0900 [facility] Non-Formulary Medication 20 mg 04/07/20 17:30 Medroxyprogesterone [Provera] PO DAILY [facility] Omeprazole 20 mg 04/07/20 17:30 04/11/20 09:42 Omeprazole 20 Mg Capsule.Dr PO 20 mg DAILY [facility] Administration Sertraline HCl 100 mg 04/07/20 21:00 04/11/20 21:20 Sertraline Hcl 100 Mg Tablet PO 100 mg BID [facility] Administration Trazodone HCl 50 mg 04/07/20 17:16 04/10/20 21:30 Trazodone Hcl 50 Mg Tablet PO 50 mg BEDTIME PRN Administration Sleep Trazodone HCl 50 mg 04/09/20 21:32 04/12/20 00:45 Trazodone Hcl 50 Mg Tablet PO 50 mg BEDTIME PRN Administration Insomnia Allergies Allergies Allergy/AdvReac Type Severity Reaction Status Date / Time Penicillins [PENICILLINS] Allergy Intermediate HIVES Verified 03/31/20 15:41 egg [Egg] Allergy Mild SWELLING Verified 03/31/20 15:41 aspirin Allergy Unknown Unknown Verified 03/31/20 15:41 bee pollen [BEE STINGS] Allergy Unknown UNKNOWN Verified 03/31/20 15:41 lactose [LACTOSE] Allergy Unknown UNKNOWN Verified 03/31/20 15:41 latex [LATEX] Allergy Unknown HIVES Verified 03/31/20 15:41 oxycodone Allergy Unknown Unknown Verified 03/31/20 15:41 peanut [PEANUT] Allergy Unknown UNKNOWN Verified 03/31/20 15:41 penicillin V Allergy Unknown Unknown Verified 03/31/20 15:41 eggs,bees,latex,peanuts Allergy Unknown Unknown Uncoded 03/31/20 15:41 medical tape Allergy Unknown Unknown Uncoded 03/31/20 15:41 TAPE,PLASTIC Allergy Unknown RASH Uncoded 03/31/20 15:41 Assessment & Plan Assessment & Plan (1) Borderline personality disorder: Status: Acute Code(s): F60.3 - Borderline personality disorder Assessment and Plan: 1. continue current medication (2) Depression: Qualifiers: Active/Remission status: currently active Depression Type: major depressive disorder Major depression episode severity: severe Major depression recurrence: recurrent Psychotic features: without psychotic features Qualified Code(s): F33.2 - Major depressive disorder, recurrent severe without psychotic features Status: Acute Code(s): F32.9 - Major depressive disorder, single episode, unspecified Assessment and Plan: 1. continue current medications- sertraline changed to daily dose instead of BID as she was taking it at home. Greater than 50% of the session was spent on counseling and/or coordination of care
[2020-04-12 06:35] LABS: Glucose, Whole Blood 134 mg/dL (60-115)
[2020-04-12 06:45] VITALS: BP 136/75; PULSE 90; RESP 20; TEMP 36.8; O2SAT 93
[2020-04-12 08:40] VITALS: BP 136/75; PULSE 90
[2020-04-12 08:40] LABS: INTERNATIONAL NORM RATIO 1.5 (0.9-1.1); Prothrombin Time 17.9 SEC (10.8-13.0)
[2020-04-12] MEDS: Loratadine 10 MG TABLET PO (08:40)
[2020-04-12] MEDS: Metoprolol Succinate ER 50 MG TAB.ER.24H PO (08:40)
[2020-04-12] MEDS: Omeprazole 20 MG CAPSULE.DR PO (08:40)
[2020-04-12 08:41] VITALS: BP 136/75; PULSE 90
[2020-04-12] MEDS: clonazePAM 0.5 MG TABLET PO ×3 (08:41→21:30)
[2020-04-12] MEDS: lisinopriL 5 MG TABLET PO (08:41)
[2020-04-12] MEDS: Atorvastatin Calcium 20 MG TABLET PO (08:41)
[2020-04-12] MEDS: Levothyroxine Sodium 75 MCG TABLET PO (08:41)
[2020-04-12] MEDS: Sertraline HCL 100 MG TABLET PO ×2 (08:41→21:30)
[2020-04-12] MEDS: metFORMIN HCl 1,000 MG TABLET 1000 MG PO ×2 (09:18→21:30)
[2020-04-12] MEDS: Albuterol Sulfate 90 MCG 8 GM INHALER 2 PUFF INHALE (09:33)
[2020-04-12 11:46] LABS: Glucose, Whole Blood 309 mg/dL (60-115)
[2020-04-12] MEDS: Insulin Lispro 100 UNIT/ML 3 ML VIAL SUBCUT ×3 (11:54→21:48)
[2020-04-12] MEDS: Acetaminophen 325 MG TABLET 650 MG PO ×2 (12:50→20:23)
[2020-04-12 18:00] VITALS: BP 118/54; PULSE 92; TEMP 35.8; O2SAT 93
--- NOTE | 2020-04-12 18:28 | HO.PSYCHPN ---
Subjective Subjective Date of Service: 04/12/20 Reason For Visit: suicidal ideation Subjective Notes: Conditional Voluntary Interim History: Triggered by another female patient and the need for security. Discussed concerns about her upcoming cardiology eval on 04/21/20-?murmur or something more serious. Well engaged with team, milieu. Alert, oriented, engaged, allows for assist when triggered. Medication Compliance: Yes Side effects from medications: No Attending Groups: Intermittent Review of Systems Psychiatric: Reports anxiety, Reports depression and Reports hopelessness Mental Status Exam Mental Status Exam Patient Appearance: Appropriate Patient Orientation: Person, Place, Time and Situation Level of Consciousness: Alert Patient Behavior: Appropriate Mood Description: Depressed Affect Description: Flat Patient Cognition Impaired: No Ability to Follow Directions: Good Speech Pattern: Spontaneous Speech Memory Description: Intact Hallucinations: None Delusions: Not Present Thought Process: Intact and Rumination Thought Content: positive for [place] and positive for Circumstantial Depressive Symptoms: Increased Anxiety, Difficulty Sleeping, Feelings of Worthlessness, Hopelessness and Low Self Esteem Judgement: Good Diagnostics Vital Signs (24Hr): Vital Signs - 24 hr 04/12/20 06:45 04/12/20 08:40 04/12/20 08:41 Temperature 98.3 F Pulse Rate 90 90 90 Respiratory Rate 20 Blood Pressure 136/75 136/75 136/75 Pulse Oximetry 93 Body Mass Index 51.7 Labs Results: 04/07/20 13:39 04/07/20 13:39 Labs: Laboratory Results - last 48 hr 04/10/20 04/11/20 04/11/20 21:07 06:30 07:54 PT 30.6 H D INR 2.6 H POC Glucose 300 H 157 H 04/11/20 04/11/20 04/11/20 11:45 16:51 21:10 PT INR POC Glucose 244 H 164 H 310 H 04/12/20 04/12/20 04/12/20 06:30 08:03 11:41 PT 17.9 H D INR 1.5 H POC Glucose 134 H 309 H Medications Medications Current Medications Generic Name Dose Route Start Last Admin Trade Name Freq PRN Reason Stop Dose Admin Acetaminophen 650 mg 04/09/20 21:32 04/12/20 12:50 Acetaminophen 325 Mg Tablet PO 650 mg Q6H PRN Administration Headache/Pain Mild Scale (1-3) Al Hydroxide/Mg Hydroxide 30 ml 04/09/20 19:21 Magnesium Hydrox/Alum Hydrox 30 Ml Oral.Susp PO Q6H PRN Heartburn/Nausea Al Hydroxide/Mg Hydroxide 30 ml 04/09/20 21:32 Magnesium Hydrox/Alum Hydrox 30 Ml Oral.Susp PO Q6H PRN Heartburn/Nausea Albuterol Sulfate 2 puff 04/11/20 23:26 04/12/20 09:33 Albuterol Sulfate 90 Mcg 8 Gm Inhaler INHALE 2 puff RQ4H PRN Administration Wheezing, dyspnea Atorvastatin Calcium 20 mg 04/07/20 17:30 04/12/20 08:41 Atorvastatin Calcium 20 Mg Tablet PO 20 mg DAILY [facility] Administration Clonazepam 0.5 mg 04/11/20 21:00 04/12/20 08:41 Clonazepam 0.5 Mg Tablet PO 0.5 mg BID [facility] Administration Clonazepam 0.5 mg 04/12/20 10:09 04/12/20 14:27 Clonazepam 0.5 Mg Tablet PO 0.5 mg BID PRN Administration Anxiety Hydroxyzine HCl 25 mg 04/09/20 21:32 04/12/20 00:45 Hydroxyzine Hcl 25 Mg Tablet PO 25 mg BEDTIME PRN Administration Anxiety Insulin Glargine 40 unit 04/07/20 21:00 04/11/20 21:15 Insulin Glargine,Hum.Rec.Anlog 100 Unit/Ml 10 Ml Vial SUBCUT 40 unit BEDTIME [facility] Administration Insulin Human Lispro 0 unit 04/07/20 21:00 04/12/20 17:28 Insulin Lispro 100 Unit/Ml 3 Ml Vial SUBCUT 4 unit QIDACHS [facility] Administration Protocol Levothyroxine Sodium 75 mcg 04/07/20 17:30 04/12/20 08:41 Levothyroxine Sodium 75 Mcg Tablet PO 75 mcg DAILY [facility] Administration Lisinopril 5 mg 04/07/20 18:00 04/12/20 08:41 Lisinopril 5 Mg Tablet PO 5 mg DAILY [facility] Administration Protocol Loratadine 10 mg 04/07/20 17:30 04/12/20 08:40 Loratadine 10 Mg Tablet PO 10 mg DAILY [facility] Administration Magnesium Hydroxide 30 ml 04/09/20 21:32 Milk Of Magnesia 30 Ml Oral.Susp PO DAILY PRN Constipation Metformin HCl 1,000 mg 04/07/20 21:00 04/12/20 09:18 Metformin Hcl 1,000 Mg Tablet PO 1,000 mg BID [facility] Administration Metoprolol Succinate 50 mg 04/07/20 17:30 04/12/20 08:40 Metoprolol Succinate Er 50 Mg Tab.Er.24h PO 50 mg DAILY [facility] Administration Protocol Non-Formulary Medication 1.5 mg 04/11/20 09:00 Dulaglutide [Trulicity] SUBCUT Fr@0900 [facility] Non-Formulary Medication 20 mg 04/07/20 17:30 Medroxyprogesterone [Provera] PO DAILY [facility] Omeprazole 20 mg 04/07/20 17:30 04/12/20 08:40 Omeprazole 20 Mg Capsule.Dr PO 20 mg DAILY [facility] Administration Sertraline HCl 100 mg 04/07/20 21:00 04/12/20 08:41 Sertraline Hcl 100 Mg Tablet PO 100 mg BID [facility] Administration Trazodone HCl 50 mg 04/07/20 17:16 04/10/20 21:30 Trazodone Hcl 50 Mg Tablet PO 50 mg BEDTIME PRN Administration Sleep Trazodone HCl 50 mg 04/09/20 21:32 04/12/20 00:45 Trazodone Hcl 50 Mg Tablet PO 50 mg BEDTIME PRN Administration Insomnia Allergies Allergies Allergy/AdvReac Type Severity Reaction Status Date / Time Penicillins [PENICILLINS] Allergy Intermediate HIVES Verified 03/31/20 15:41 egg [Egg] Allergy Mild SWELLING Verified 03/31/20 15:41 aspirin Allergy Unknown Unknown Verified 03/31/20 15:41 bee pollen [BEE STINGS] Allergy Unknown UNKNOWN Verified 03/31/20 15:41 lactose [LACTOSE] Allergy Unknown UNKNOWN Verified 03/31/20 15:41 latex [LATEX] Allergy Unknown HIVES Verified 03/31/20 15:41 oxycodone Allergy Unknown Unknown Verified 03/31/20 15:41 peanut [PEANUT] Allergy Unknown UNKNOWN Verified 03/31/20 15:41 penicillin V Allergy Unknown Unknown Verified 03/31/20 15:41 eggs,bees,latex,peanuts Allergy Unknown Unknown Uncoded 03/31/20 15:41 medical tape Allergy Unknown Unknown Uncoded 03/31/20 15:41 TAPE,PLASTIC Allergy Unknown RASH Uncoded 03/31/20 15:41 Assessment & Plan Assessment & Plan (1) Chronic post-traumatic stress disorder (PTSD): Status: Acute Code(s): F43.12 - Post-traumatic stress disorder, chronic Assessment and Plan: Continue current regime Klonopin 0.5 mg bid prn (2) Depression: Qualifiers: Active/Remission status: currently active Depression Type: major depressive disorder Major depression episode severity: severe Major depression recurrence: recurrent Psychotic features: without psychotic features Qualified Code(s): F33.2 - Major depressive disorder, recurrent severe without psychotic features Status: Acute Code(s): F32.9 - Major depressive disorder, single episode, unspecified Greater than 50% of the session was spent on counseling and/or coordination of care
[2020-04-12 18:29] LABS: Glucose, Whole Blood 227 mg/dL (60-115)
[2020-04-12] MEDS: Insulin Glargine,Hum.rec.anlog 100 UNIT/ML 10 ML VIAL 40 UNIT SUBCUT (21:49)
[2020-04-12 21:55] LABS: Glucose, Whole Blood 327 mg/dL (60-115)
--- NOTE | 2020-04-12 23:23 | PC.NURSE ---
Around 194 this evening patient was noted to be shaking during the evening psychiatric group and patient decided to lie down on the floor. Staff member alerted this RN. Tw went into the group meeting and noted patient resting quietly on her left side. When tw spoke to the patient she started to twitch until tw offer to assist her/dinin At that point patient stated No I just want to relax here for a few minutes . Vital signs were taken BP was 118/65, pulse 73, patient rr even unlabored; room air o2 sats 93%. Patient was offered cold cloth, ice pack, fluids etc. She declined all offers and said I was just so anxious and triggered by that other female patient earlier and I just couldn't relax . Patient was able to stand up on her own and apologized to the group. She was able to walk out of the dining room and sit and talk with other patients. No further issues were noted or reported.
[2020-04-13] MEDS: hydrOXYzine HCL 25 MG TABLET PO (01:48)
[2020-04-13] MEDS: traZODone HCL 50 MG TABLET PO (01:48)
[2020-04-13 06:00] LABS: Glucose, Whole Blood 258 mg/dL (60-115)
[2020-04-13 06:15] VITALS: BP 95/56; PULSE 91; RESP 18; TEMP 36.1; O2SAT 94
[2020-04-13] MEDS: Insulin Lispro 100 UNIT/ML 3 ML VIAL SUBCUT ×4 (08:44→21:30)
[2020-04-13] MEDS: Levothyroxine Sodium 75 MCG TABLET PO (09:09)
[2020-04-13 09:11] VITALS: BP 95/56; PULSE 91
[2020-04-13] MEDS: lisinopriL 5 MG TABLET PO (09:11)
[2020-04-13] MEDS: clonazePAM 0.5 MG TABLET PO ×2 (09:11→21:30)
[2020-04-13 09:12] VITALS: BP 95/56; PULSE 91
[2020-04-13] MEDS: Metoprolol Succinate ER 50 MG TAB.ER.24H PO (09:12)
[2020-04-13] MEDS: Atorvastatin Calcium 20 MG TABLET PO (09:13)
[2020-04-13] MEDS: Sertraline HCL 100 MG TABLET PO ×2 (09:13→21:30)
[2020-04-13] MEDS: Loratadine 10 MG TABLET PO (09:13)
[2020-04-13] MEDS: metFORMIN HCl 1,000 MG TABLET 1000 MG PO ×2 (09:13→21:29)
[2020-04-13] MEDS: medroxyPROGESTERone Acetate 5 MG TABLET 20 MG PO (09:14)
[2020-04-13] MEDS: Omeprazole 20 MG CAPSULE.DR PO (09:15)
[2020-04-13 09:28] LABS: Creatinine Clr Calc Pharmacy 107.4; Estimated Glomerular Filt Rate > 60
[2020-04-13 12:18] LABS: Glucose, Whole Blood 249 mg/dL (60-115)
--- NOTE | 2020-04-13 13:43 | PM.EVENT ---
Event Note Date of Service: 04/13/20 Event Note: 44 year old women with history of Hypertension, HLD, DM, hypothyroidism, DVT, PE, asthma, PTSD, Obesity, cardiothoracic removal of PE 2014 admitted to [facility] with complaint of flank pain today. She reports Right flank pain that comes and goes and has been told that she has renal calculi but according to the patient she was told that she could not have any procedure to remove them unless she lost weight. She denies nausea, vomiting, diarrhea, fever, chills, abdominal pain, urinary discomfort or retention. SH: Denies alcohol, tobacco or illicit drug use. FH: no cardiac disease Denies any recent fever chills or decrease in appetite respiratory denies any shortness of breath coverage production cardiovascular is adjustment of any PND or edema gastrointestinal See HPI genitourinary See HPI musculoskeletal denies any joint pain or swelling neuropsych denies any weakness or seizures all other systems reviewed are negative Appearing in no acute distress head is normocephalic atraumatic eyes pupils are PERRLA sclera is anicteric mouth throat mucous membranes are intact and moist lung sounds normal expansion heart regular rate abdomen is soft, nontender, obese neuro patient is alert x3, no focal deficits A/P: Flank pain. CBC, BMP, Urinalysis. Consider renal ultrasound if TRACIE noted. Hypotension. Stop Lisinopril. Follow BP closely. Supratherapeutic INR. She had not received Coumadin in 2 days according to [facility] staff. Continue her daily dose of 10 mg. PT/INR daily. Discussed with Dr. Robison. Medications Medications Medications: Current Medications Generic Name Dose Route Start Last Admin Trade Name Ken PRN Reason Stop Dose Admin Acetaminophen 650 mg 04/09/20 21:32 04/12/20 20:23 Acetaminophen 325 Mg Tablet PO 650 mg Q6H PRN Administration Headache/Pain Mild Scale (1-3) Al Hydroxide/Mg Hydroxide 30 ml 04/09/20 19:21 Magnesium Hydrox/Alum Hydrox 30 Ml Oral.Susp PO Q6H PRN Heartburn/Nausea Al Hydroxide/Mg Hydroxide 30 ml 04/09/20 21:32 Magnesium Hydrox/Alum Hydrox 30 Ml Oral.Susp PO Q6H PRN Heartburn/Nausea Albuterol Sulfate 2 puff 04/11/20 23:26 04/12/20 09:33 Albuterol Sulfate 90 Mcg 8 Gm Inhaler INHALE 2 puff RQ4H PRN Administration Wheezing, dyspnea Atorvastatin Calcium 20 mg 04/07/20 17:30 04/13/20 09:13 Atorvastatin Calcium 20 Mg Tablet PO 20 mg DAILY [facility] Administration Clonazepam 0.5 mg 04/11/20 21:00 04/13/20 09:11 Clonazepam 0.5 Mg Tablet PO 0.5 mg BID [facility]IRE Administration Clonazepam 0.5 mg 04/12/20 10:09 04/12/20 14:27 Clonazepam 0.5 Mg Tablet PO 0.5 mg BID PRN Administration Anxiety Hydroxyzine HCl 25 mg 04/09/20 21:32 04/13/20 01:48 Hydroxyzine Hcl 25 Mg Tablet PO 25 mg BEDTIME PRN Administration Anxiety Insulin Glargine 40 unit 04/07/20 21:00 04/12/20 21:49 Insulin Glargine,Hum.Rec.Anlog 100 Unit/Ml 10 Ml Vial SUBCUT 40 unit BEDTIME [facility] Administration Insulin Human Lispro 0 unit 04/07/20 21:00 04/13/20 12:39 Insulin Lispro 100 Unit/Ml 3 Ml Vial SUBCUT 4 unit QIDACHS [facility] Administration Protocol Levothyroxine Sodium 75 mcg 04/07/20 17:30 04/13/20 09:09 Levothyroxine Sodium 75 Mcg Tablet PO 75 mcg DAILY [facility] Administration Loratadine 10 mg 04/07/20 17:30 04/13/20 09:13 Loratadine 10 Mg Tablet PO 10 mg DAILY [facility] Administration Magnesium Hydroxide 30 ml 04/09/20 21:32 Milk Of Magnesia 30 Ml Oral.Susp PO DAILY PRN Constipation Medroxyprogesterone Acetate 20 mg 04/13/20 09:00 04/13/20 09:14 Medroxyprogesterone Acetate 5 Mg Tablet PO 20 mg DAILY [facility] Administration Metformin HCl 1,000 mg 04/07/20 21:00 04/13/20 09:13 Metformin Hcl 1,000 Mg Tablet PO 1,000 mg BID [facility] Administration Metoprolol Succinate 50 mg 04/07/20 17:30 04/13/20 09:12 Metoprolol Succinate Er 50 Mg Tab.Er.24h PO 50 mg DAILY [facility] Administration Protocol Non-Formulary Medication 1.5 mg 04/11/20 09:00 Dulaglutide [Trulicity] SUBCUT Fr@0900 [facility] Omeprazole 20 mg 04/07/20 17:30 04/13/20 09:15 Omeprazole 20 Mg Capsule.Dr PO 20 mg DAILY [facility] Administration Risperidone 0.5 mg 04/13/20 11:57 Risperidone 0.5 Mg Tablet PO BID PRN for mgt of triggers, grounding Sertraline HCl 100 mg 04/07/20 21:00 04/13/20 09:13 Sertraline Hcl 100 Mg Tablet PO 100 mg BID [facility] Administration Trazodone HCl 50 mg 04/07/20 17:16 04/13/20 01:48 Trazodone Hcl 50 Mg Tablet PO 50 mg BEDTIME PRN Administration Sleep Trazodone HCl 50 mg 04/09/20 21:32 04/12/20 00:45 Trazodone Hcl 50 Mg Tablet PO 50 mg BEDTIME PRN Administration Insomnia Internal Medicine - H&P: Reslt Labs Labs: Short CBC 04/13/20 Range/Units 13:53 WBC 10.3 (4.8-10.8) X10*3/uL Hgb 12.8 (12.0-16.0) g/dl Hct 41.5 (37-47) % Plt Count 334 (160-400) X10*3/uL BMP 04/13/20 04/13/20 09:05 13:53 Sodium 138 Potassium 4.9 Chloride 100 Carbon Dioxide 27 BUN 14 D Creatinine 1.01 1.12 Calcium 9.2 D
[2020-04-13 14:00] LABS: MANUAL DIFF FLAG NO
[2020-04-13 14:03] LABS: Basophils Percent Auto 0.4 % (0-2); Eosinophils Absolute Auto 0.2 X10*3/uL (0.0-0.4); Eosinophils Percent Auto 1.7 % (0-4); Hematocrit 41.5 % (37-47); Hemoglobin 12.8 g/dl (12.0-16.0); Imm Gran Abs Auto 0.04 X10*3/uL (0.00-0.03); Imm Gran Pct Auto 0.4 % (0.0-0.4); Lymphocytes Absolute Auto 2.5 X10*3/uL (1.2-4.9); Lymphocytes Percent Auto 24.6 % (20-40); Mean Corpuscular HGB Conc 30.8 g/dl (31.0-35.0); Mean Corpuscular Hemoglobin 26.4 pg (27.0-33.0); Mean Corpuscular Volume 85.6 fL (80-98); Monocytes Absolute Auto 0.6 X10*3/uL (0.1-1.2); Monocytes Percent Auto 6.2 % (2-11); Neutrophils Absolute Auto 6.9 X10*3/uL (2.0-8.3); Neutrophils Percent Auto 66.7 % (45-73); Platelet Count 334 X10*3/uL (160-400); Red Blood Count 4.85 X10*6/uL (4.20-5.50); White Blood Count 10.3 X10*3/uL (4.8-10.8)
[2020-04-13 14:37] LABS: Anion Gap 16 (12-20); Blood Urea Nitrogen 14 mg/dL (9-16); Calcium 9.2 mg/dL (8.4-10.2); Carbon Dioxide 27 mmol/L (22-29); Chloride 100 mmol/L (96-108); Creatinine Clr Calc Pharmacy 96.9; Estimated Glomerular Filt Rate 53; Glucose Random 351 mg/dL (60-115); Potassium 4.9 mmol/l (3.3-5.1); Sodium 138 mmol/L (135-145)
[2020-04-13] MEDS: Insulin Regular, Human 100 UNIT/ML 3 ML VIAL 10 UNIT SUBCUT (16:03)
--- NOTE | 2020-04-13 16:26 | PC.NURSE ---
squadron worker and hospitalist notified of need to check pt/inr. last draw was on . stat lab ordered. will monitor and obtain coumadin orders.
[2020-04-13 16:55] LABS: INTERNATIONAL NORM RATIO 1.3 (0.9-1.1); Prothrombin Time 15.1 SEC (10.8-13.0)
[2020-04-13 16:56] LABS: Glucose, Whole Blood 266 mg/dL (60-115)
[2020-04-13] MEDS: risperiDONE 0.5 MG TABLET PO (17:04)
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
[2020-04-13 18:00] VITALS: BP 119/70; PULSE 100; TEMP 36.1; O2SAT 94
[2020-04-13] MEDS: Warfarin Sodium 10 MG TABLET PO (18:30)
--- NOTE | 2020-04-13 18:32 | PC.NURSE ---
PT/INR results called to [facility]. Coumadin 10 mg po daily at 1800 was ordered. Patient was given Coumadin 10 mg po at 1830. Daily PT/INRs were also ordered.
[2020-04-13] MEDS: Insulin Glargine,Hum.rec.anlog 100 UNIT/ML 10 ML VIAL 40 UNIT SUBCUT (21:30)
[2020-04-13 21:34] LABS: Glucose, Whole Blood 190 mg/dL (60-115)
[2020-04-14 08:00] VITALS: BP 102/58; PULSE 88; RESP 16; TEMP 36.4; O2SAT 94
[2020-04-14 09:04] LABS: Glucose, Whole Blood 164 mg/dL (60-115)
[2020-04-14] MEDS: Insulin Lispro 100 UNIT/ML 3 ML VIAL SUBCUT ×4 (09:19→22:07)
[2020-04-14] MEDS: Sertraline HCL 100 MG TABLET PO ×2 (09:20→22:08)
[2020-04-14 09:21] VITALS: BP 102/58; PULSE 88
[2020-04-14] MEDS: Omeprazole 20 MG CAPSULE.DR PO (09:21)
[2020-04-14] MEDS: clonazePAM 0.5 MG TABLET PO ×2 (09:21→22:08)
[2020-04-14] MEDS: Metoprolol Succinate ER 50 MG TAB.ER.24H PO (09:21)
[2020-04-14] MEDS: metFORMIN HCl 1,000 MG TABLET 1000 MG PO ×2 (09:21→22:08)
[2020-04-14] MEDS: Loratadine 10 MG TABLET PO (09:21)
[2020-04-14] MEDS: Levothyroxine Sodium 75 MCG TABLET PO (09:21)
[2020-04-14] MEDS: medroxyPROGESTERone Acetate 5 MG TABLET 20 MG PO (09:26)
[2020-04-14] MEDS: Atorvastatin Calcium 20 MG TABLET PO (10:03)
[2020-04-14 10:05] LABS: INTERNATIONAL NORM RATIO 1.2 (0.9-1.1); Prothrombin Time 14.6 SEC (10.8-13.0)
[2020-04-14 11:47] LABS: Glucose, Whole Blood 272 mg/dL (60-115)
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
[2020-04-14 18:00] VITALS: BP 112/85; PULSE 88; TEMP 36.8
[2020-04-14 18:16] LABS: Glucose, Whole Blood 309 mg/dL (60-115)
[2020-04-14] MEDS: Warfarin Sodium 5 MG TABLET PO (18:35)
[2020-04-14] MEDS: Warfarin Sodium 10 MG TABLET PO (18:35)
[2020-04-14] MEDS: Insulin Glargine,Hum.rec.anlog 100 UNIT/ML 10 ML VIAL 40 UNIT SUBCUT (22:09)
[2020-04-14 22:20] LABS: Glucose, Whole Blood 340 mg/dL (60-115)
[2020-04-14] MEDS: hydrOXYzine HCL 25 MG TABLET PO (23:40)
[2020-04-14] MEDS: traZODone HCL 50 MG TABLET PO (23:40)
[2020-04-15 08:23] LABS: INTERNATIONAL NORM RATIO 1.3 (0.9-1.1); Prothrombin Time 15.5 SEC (10.8-13.0)
[2020-04-15 08:39] LABS: Glucose, Whole Blood 185 mg/dL (60-115)
[2020-04-15] MEDS: clonazePAM 0.5 MG TABLET PO ×2 (09:11→21:24)
[2020-04-15] MEDS: Omeprazole 20 MG CAPSULE.DR PO (09:11)
[2020-04-15] MEDS: Sertraline HCL 100 MG TABLET PO ×2 (09:11→21:24)
[2020-04-15] MEDS: Loratadine 10 MG TABLET PO (09:12)
[2020-04-15] MEDS: Atorvastatin Calcium 20 MG TABLET PO (09:12)
[2020-04-15] MEDS: Levothyroxine Sodium 75 MCG TABLET PO (09:13)
[2020-04-15] MEDS: metFORMIN HCl 1,000 MG TABLET 1000 MG PO ×2 (09:13→21:24)
[2020-04-15] MEDS: medroxyPROGESTERone Acetate 5 MG TABLET 20 MG PO (09:13)
[2020-04-15] MEDS: Insulin Lispro 100 UNIT/ML 3 ML VIAL SUBCUT ×4 (09:25→21:24)
[2020-04-15 09:26] VITALS: BP 127/61; PULSE 95; RESP 20; TEMP 36.5; O2SAT 95
[2020-04-15 09:27] VITALS: BP 127/61; PULSE 95
[2020-04-15] MEDS: Metoprolol Succinate ER 50 MG TAB.ER.24H PO (09:27)
[2020-04-15] MEDS: Acetaminophen 325 MG TABLET 650 MG PO (14:27)
--- NOTE | 2020-04-15 15:35 | HO.PSYCHPN ---
Subjective Subjective Date of Service: 04/15/20 Reason For Visit: suicidal ideation Interim History: Pt continues to present with brighter affect. She reports improvement in symptoms of depression. She adamantly denies suicidal or homicidal ideation. She reports she is looking forward to see her friends and people from her care team. She has been visible in the unit. She has attended assigned groups. No behavioral concerns. Review of Systems Review of Systems Constitutional: No Fever, No Chills ENT/Mouth: No sore throat, No Rhinorrhea Cardiovascular: No Chest Pain, No SOB Respiratory: No Cough, No Sputum Gastrointestinal: No Nausea, No Vomiting, No Diarrhea, No abdominal Pain Genitourinary: No Dysuria, No Urinary Frequency, No Hematuria Musculoskeletal: No joint pain, No Myalgias Skin: No Skin Lesions, No rash Neuro: No Weakness, No Numbness, No Dizziness, No Headache Psych: + Anxiety/Panic, + Depression Mental Status Exam Mental Status Exam Narrative: Appearance: [place] woman, wearing hospital gown, improved hygiene, in NAD Behavior: calm, cooperative Speech: clear, normal rate/rhythm/volume, spontaneous Psychomotor: no agitation or retardation noted Mood: better Affect: congruent AH/VH: none Delusions: none Insight/judgment: poor x 2. Memory/cog: alert, oriented x 3. Patient Appearance: Appropriate Patient Orientation: Person, Place, Time and Situation Level of Consciousness: Awake and Alert Patient Behavior: Talkative, Cooperative, Anxious and Distractible Mood Description: Calm, Depressed and Cheerful Affect Description: Flat Patient Cognition Impaired: No Ability to Follow Directions: Good Speech Pattern: Clear and Spontaneous Speech Memory Description: Intact Diagnostics Vital Signs (24Hr): Vital Signs - 24 hr 04/14/20 18:00 04/15/20 09:26 04/15/20 09:27 Temperature 98.3 F 97.7 F Pulse Rate 88 95 95 Respiratory Rate 20 Blood Pressure 112/85 127/61 127/61 Pulse Oximetry 95 Body Mass Index 51.7 Labs Results: 04/13/20 13:53 04/13/20 13:53 Labs: Laboratory Results - last 48 hr 04/13/20 04/13/20 04/13/20 16:40 16:48 21:21 PT 15.1 H INR 1.3 H POC Glucose 266 H 190 H 04/14/20 04/14/20 04/14/20 08:59 09:48 11:43 PT 14.6 H INR 1.2 H POC Glucose 164 H 272 H 04/14/20 04/14/20 04/15/20 16:56 21:56 08:05 PT 15.5 H INR 1.3 H POC Glucose 309 H 340 H 04/15/20 08:35 PT INR POC Glucose 185 H Medications Medications Current Medications Generic Name Dose Route Start Last Admin Trade Name Freq PRN Reason Stop Dose Admin Acetaminophen 650 mg 04/09/20 21:32 04/15/20 14:27 Acetaminophen 325 Mg Tablet PO 650 mg Q6H PRN Administration Headache/Pain Mild Scale (1-3) Al Hydroxide/Mg Hydroxide 30 ml 04/09/20 19:21 Magnesium Hydrox/Alum Hydrox 30 Ml Oral.Susp PO Q6H PRN Heartburn/Nausea Al Hydroxide/Mg Hydroxide 30 ml 04/09/20 21:32 Magnesium Hydrox/Alum Hydrox 30 Ml Oral.Susp PO Q6H PRN Heartburn/Nausea Albuterol Sulfate 2 puff 04/11/20 23:26 04/12/20 09:33 Albuterol Sulfate 90 Mcg 8 Gm Inhaler INHALE 2 puff RQ4H PRN Administration Wheezing, dyspnea Atorvastatin Calcium 20 mg 04/07/20 17:30 04/15/20 09:12 Atorvastatin Calcium 20 Mg Tablet PO 20 mg DAILY CLAIRE Administration Clonazepam 0.5 mg 04/11/20 21:00 04/15/20 09:11 Clonazepam 0.5 Mg Tablet PO 0.5 mg BID CLAIRE Administration Clonazepam 0.5 mg 04/12/20 10:09 04/12/20 14:27 Clonazepam 0.5 Mg Tablet PO 0.5 mg BID PRN Administration Anxiety Hydroxyzine HCl 25 mg 04/09/20 21:32 04/14/20 23:40 Hydroxyzine Hcl 25 Mg Tablet PO 25 mg BEDTIME PRN Administration Anxiety Insulin Glargine 40 unit 04/07/20 21:00 04/14/20 22:09 Insulin Glargine,Hum.Rec.Anlog 100 Unit/Ml 10 Ml Vial SUBCUT 40 unit BEDTIME CLAIRE Administration Insulin Human Lispro 0 unit 04/07/20 21:00 04/15/20 12:44 Insulin Lispro 100 Unit/Ml 3 Ml Vial SUBCUT 6 unit QIDACHS CLAIRE Administration Protocol Levothyroxine Sodium 75 mcg 04/07/20 17:30 04/15/20 09:13 Levothyroxine Sodium 75 Mcg Tablet PO 75 mcg DAILY CLAIRE Administration Loratadine 10 mg 04/07/20 17:30 04/15/20 09:12 Loratadine 10 Mg Tablet PO 10 mg DAILY CLAIRE Administration Magnesium Hydroxide 30 ml 04/09/20 21:32 Milk Of Magnesia 30 Ml Oral.Susp PO DAILY PRN Constipation Medroxyprogesterone Acetate 20 mg 04/13/20 09:00 04/15/20 09:13 Medroxyprogesterone Acetate 5 Mg Tablet PO 20 mg DAILY CLAIRE Administration Metformin HCl 1,000 mg 04/07/20 21:00 04/15/20 09:13 Metformin Hcl 1,000 Mg Tablet PO 1,000 mg BID CLAIRE Administration Metoprolol Succinate 50 mg 04/07/20 17:30 04/15/20 09:27 Metoprolol Succinate Er 50 Mg Tab.Er.24h PO 50 mg DAILY CLAIRE Administration Protocol Omeprazole 20 mg 04/07/20 17:30 04/15/20 09:11 Omeprazole 20 Mg Capsule.Dr PO 20 mg DAILY CLAIRE Administration Risperidone 0.5 mg 04/13/20 11:57 04/13/20 17:04 Risperidone 0.5 Mg Tablet PO 0.5 mg BID PRN Administration for mgt of triggers, grounding Sertraline HCl 100 mg 04/07/20 21:00 04/15/20 09:11 Sertraline Hcl 100 Mg Tablet PO 100 mg BID CLAIRE Administration Trazodone HCl 50 mg 04/07/20 17:16 04/14/20 23:40 Trazodone Hcl 50 Mg Tablet PO 50 mg BEDTIME PRN Administration Sleep Trazodone HCl 50 mg 04/09/20 21:32 04/12/20 00:45 Trazodone Hcl 50 Mg Tablet PO 50 mg BEDTIME PRN Administration Insomnia Warfarin Sodium 10 mg 04/13/20 18:00 04/14/20 18:35 Warfarin Sodium 10 Mg Tablet PO 10 mg DAILY@1800 CLAIRE Administration Allergies Allergies Allergy/AdvReac Type Severity Reaction Status Date / Time Penicillins [PENICILLINS] Allergy Intermediate HIVES Verified 03/31/20 15:41 egg [Egg] Allergy Mild SWELLING Verified 03/31/20 15:41 aspirin Allergy Unknown Unknown Verified 03/31/20 15:41 bee pollen [BEE STINGS] Allergy Unknown UNKNOWN Verified 03/31/20 15:41 lactose [LACTOSE] Allergy Unknown UNKNOWN Verified 03/31/20 15:41 latex [LATEX] Allergy Unknown HIVES Verified 03/31/20 15:41 oxycodone Allergy Unknown Unknown Verified 03/31/20 15:41 peanut [PEANUT] Allergy Unknown UNKNOWN Verified 03/31/20 15:41 penicillin V Allergy Unknown Unknown Verified 03/31/20 15:41 eggs,bees,latex,peanuts Allergy Unknown Unknown Uncoded 03/31/20 15:41 medical tape Allergy Unknown Unknown Uncoded 03/31/20 15:41 TAPE,PLASTIC Allergy Unknown RASH Uncoded 03/31/20 15:41 Assessment & Plan Assessment & Plan (1) Borderline personality disorder: Status: Acute Code(s): F60.3 - Borderline personality disorder Assessment and Plan: 1. continue current medication (2) Depression: Qualifiers: Active/Remission status: currently active Depression Type: major depressive disorder Major depression episode severity: severe Major depression recurrence: recurrent Psychotic features: without psychotic features Qualified Code(s): F33.2 - Major depressive disorder, recurrent severe without psychotic features Status: Acute Code(s): F32.9 - Major depressive disorder, single episode, unspecified Assessment and Plan: 1. continue current medications- sertraline changed to daily dose instead of BID as she was taking it at home. Greater than 50% of the session was spent on counseling and/or coordination of care
[2020-04-15 17:38] LABS: Glucose, Whole Blood 219 mg/dL (60-115)
[2020-04-15 17:38] LABS: Glucose, Whole Blood 296 mg/dL (60-115)
[2020-04-15] MEDS: Warfarin Sodium 10 MG TABLET PO (17:46)
[2020-04-15 18:00] VITALS: BP 133/78; PULSE 85; TEMP 36.3
[2020-04-15] MEDS: Insulin Glargine,Hum.rec.anlog 100 UNIT/ML 10 ML VIAL 40 UNIT SUBCUT (21:25)
[2020-04-15] MEDS: Insulin Lispro 100 UNIT/ML 3 ML VIAL 10 UNIT SUBCUT (22:36)
[2020-04-16 00:34] LABS: Glucose, Whole Blood 284 mg/dL (60-115)
[2020-04-16 00:34] LABS: Glucose, Whole Blood 395 mg/dL (60-115)
--- NOTE | 2020-04-16 00:56 | PC.NURSE ---
Patient's POC at was 395. Hospitalist application developer manager was notified via the [place] Text. In addition to the Lispro 10 units and scheduled Lantus 40 units SQ the hospitalist ordered and additional 10 units of Lispro and repeat the POC in 1 hours. Repeat POC was 284 and the result was [place] texted to the application developer manager hospitalist. No further orders were received.
[2020-04-16 06:33] LABS: Glucose, Whole Blood 82 mg/dL (60-115)
[2020-04-16 08:42] VITALS: BP 133/78; PULSE 85
[2020-04-16] MEDS: Metoprolol Succinate ER 50 MG TAB.ER.24H PO (08:42)
[2020-04-16] MEDS: medroxyPROGESTERone Acetate 5 MG TABLET 20 MG PO (08:42)
[2020-04-16] MEDS: Levothyroxine Sodium 75 MCG TABLET PO (08:42)
[2020-04-16] MEDS: Atorvastatin Calcium 20 MG TABLET PO (08:43)
[2020-04-16] MEDS: Sertraline HCL 100 MG TABLET PO (08:43)
[2020-04-16] MEDS: Omeprazole 20 MG CAPSULE.DR PO (08:43)
[2020-04-16] MEDS: metFORMIN HCl 1,000 MG TABLET 1000 MG PO (08:43)
[2020-04-16] MEDS: clonazePAM 0.5 MG TABLET PO (08:43)
[2020-04-16] MEDS: Loratadine 10 MG TABLET PO (08:43)
[2020-04-16 08:56] VITALS: BP 122/70; PULSE 90; RESP 16; TEMP 37; O2SAT 96
[2020-04-16] MEDS: Acetaminophen 325 MG TABLET 650 MG PO (10:38)
[2020-04-16 10:49] LABS: INTERNATIONAL NORM RATIO 1.5 (0.9-1.1); Prothrombin Time 18.3 SEC (10.8-13.0)
--- NOTE | 2020-04-16 11:20 | PC.NURSE ---
PT IS AWARE AND READY FOR DISCHARGE ON 04/16/2020. PT REPORTS NO SUCIDICAL OR HOMICIDAL IDEATIONS. PT SAYS SHE IS WILLING TO REACH OUT FOR HELP IF SHE HAS THE DESIRE TO HARM HERSELF OR OTHERS. PT HAS BEEN CALM AND COOPERATIVE. PT REPORTS MILD ANXIETY THAT CAN BE MANAGED WITH REST AND/OR PRN MEDICATIONS. PT DENIES DEPRESSION. PT DECLINES AUDITORY OR VISUAL HALLUCINATIONS. PT IS LESS LABILE THAN UPON ADMISSION. SHE IS EXCITED TO GET OUT OF THE HOSPITAL. PT STATED SHE WILL BE VISITED BY HER HOME HEALTH AID. PT HAS BEEN EATING AND SLEEPING WELL. SHE HAS BEEN SHOWERING DAILY AND CHANGING HER CLOTHING. PT HAS BEEN EDUCATED ON MEDICATIONS AND DIABETES. PT VERBALIZES UNDERSTANDING OF HER TEACHING FROM RN. PT'S PAPERWORK HAS BEEN FAXED TO HER PCP AND VISITING NURSE PER PROTOCOL.
--- NOTE | 2020-04-16 11:39 | PM.PSYDC ---
DS: Providers Provider Date of Service: 04/16/20 Date of admission: 04/09/20 20:05 Primary care physician: Renee Saavedra MD Consults: 04/11/20 18:40 Consult to Hospitalist Stat Consulting Provider: Hospitalist Reason for consultation: H/O asthma, O2 saturation 95%, pt reports chest tightness Has provider been notified: No DS: Diagnosis Discharge Diagnosis (1) Borderline personality disorder: Status: Acute (2) Depression: Status: Acute DS: Medications Discharge Medications Home Medications: Home Medications Medication Instructions Recorded Confirmed albuterol sulfate 2.5 mg INHALATION QID PRN 12/26/19 03/31/20 albuterol sulfate [ProAir HFA] 2 puff INHALATION Q4-6H PRN 12/26/19 03/31/20 epinephrine [EpiPen 2-Mykel] 0.3 mg IM NEEDED PRN 12/26/19 04/07/20 lisinopril 5 mg PO DAILY 12/26/19 04/07/20 medroxyprogesterone [Provera] 20 mg PO DAILY 12/26/19 04/07/20 metoprolol succinate 50 mg PO DAILY 12/26/19 04/07/20 omeprazole 20 mg PO DAILY 12/26/19 04/07/20 trazodone 50 mg PO BEDTIME PRN 12/26/19 04/07/20 atorvastatin 20 mg PO DAILY 04/07/20 04/07/20 clonazepam 0.5 tab PO BID 04/07/20 04/07/20 clonazepam 0.5 tab PO DAILY PRN 04/07/20 04/07/20 levothyroxine 75 mcg PO DAILY 04/07/20 04/07/20 loratadine 10 mg PO DAILY 04/07/20 04/07/20 metformin 1,000 mg PO BID 04/07/20 04/07/20 warfarin 10 mg PO DIRECTED 04/07/20 04/07/20 Previous Rx's Medication Instructions Recorded insulin lispro 100 unit/mL See Rx Instructions SUBCUT TID 30 03/31/20 subcutaneous pen Days #30 ml dulaglutide 1.5 mg/0.5 mL 1.5 mg SUBCUT QWEEK #2 ml 04/04/20 subcutaneous pen injector insulin glargine U-300 conc 300 50 unit SUBCUT BEDTIME 30 Days #6 04/04/20 unit/mL (3 mL) subcutaneous pen ml sertraline 150 mg PO DAILY #90 tab 04/16/20 Discharge Plan Discharge Patient Disposition: Home, Self-Care Referrals: [facility] [Other] - 04/16/20 (Fax- [phone] ) Therapist: Georgiana ([facility]) [Other] - 04/16/20 1:00 pm Psych Prescriber: Arcadio Jaramillo ([facility]) [Other] - 05/16/20 9:20 am Renee Saavedra MD [Primary Care Provider] - (OFFICE WILL CALL PT. WITH FOLLOW-UP APPOINTMENT.) Discharge Medications: New sertraline 50 mg Tablet 150 mg PO DAILY Qty: 90 RF: 0 Continued Trulicity 1.5 mg/0.5 mL pen injector 1.5 mg subcut QWEEK Qty: 2 RF: 3 insulin glargine U-300 conc [Toujeo Max U-300 SoloStar] 300 unit/mL (3 mL) insulin pen 50 unit subcut BEDTIME 30 Days Qty: 6 RF: 3 albuterol sulfate 2.5 mg /3 mL (0.083 %) Solution For Nebulization 2.5 mg INHALATION QID PRN (Reason: Allergic Reaction) RF: 0 epinephrine [EpiPen 2-Mykel] 0.3 mg/0.3 mL Auto-Injector 0.3 mg IM NEEDED PRN (Reason: SEVERE ALLERGIC REACTION) RF: 0 medroxyprogesterone [Provera] 10 mg Tablet 20 mg PO DAILY RF: 0 trazodone 50 mg Tablet 50 mg PO BEDTIME PRN (Reason: Sleep) RF: 0 metoprolol succinate 50 mg Tablet Extended Release 24 Hr 50 mg PO DAILY RF: 0 omeprazole 20 mg Capsule,Delayed Release(Dr/Ec) 20 mg PO DAILY RF: 0 lisinopril 5 mg Tablet 5 mg PO DAILY RF: 0 albuterol sulfate [ProAir HFA] 90 mcg/actuation Hfa Aerosol Inhaler 2 puff INHALATION Q4-6H PRN (Reason: COUGH/WHEEZE) RF: 0 atorvastatin 20 mg tablet 20 mg PO DAILY RF: 0 clonazepam 1 mg tablet 0.5 tab PO DAILY PRN (Reason: anxiety) RF: 0 clonazepam 1 mg tablet 0.5 tab PO BID RF: 0 levothyroxine 75 mcg tablet 75 mcg PO DAILY RF: 0 loratadine 10 mg tablet 10 mg PO DAILY RF: 0 metformin 1,000 mg tablet 1,000 mg PO BID RF: 0 warfarin 5 mg tablet 10 mg PO DIRECTED RF: 0 insulin lispro [Admelog SoloStar U-100 Insulin] 100 unit/mL insulin pen See Rx Instructions subcut TID 30 Days Qty: 30 RF: 3 Discontinued sertraline [Zoloft] 100 mg Tablet 100 mg PO BID RF: 0 Discharge Orders: Discharge Order (Routine); Ordered 04/16/20 Ordered By: Adeline Sanchez Diet: diabetic diet Activity on Discharge: As tolerated Stand Alone Forms: Patient Portal Discharge page Visit Report Forms: Patient Portal Discharge page Care Plan Goals: Continue OP psychiatric treatment. Take medications as prescribed Health Concerns: Follow up with PCP Plan of Treatment: Follow up with scheduled appointments Mental Status Exam Mental Status Exam Narrative: Appearance: [place] woman, wearing hospital gown, improved hygiene, in NAD Behavior: calm, cooperative Speech: clear, normal rate/rhythm/volume, spontaneous Psychomotor: no agitation or retardation noted Mood: better Affect: congruent AH/VH: none Delusions: none Insight/judgment: improving Memory/cog: alert, oriented x 3. Patient Appearance: Appropriate Patient Orientation: Person, Place, Time and Situation Level of Consciousness: Awake and Alert Patient Behavior: Talkative, Cooperative, Anxious and Distractible Mood Description: Calm, Depressed and Cheerful Affect Description: Flat Patient Cognition Impaired: No Ability to Follow Directions: Good Speech Pattern: Clear and Spontaneous Speech Memory Description: Intact Data Data Completed and Pending Completed studies during hospitalization [Text1]: 04/09/20 04/09/20 04/09/20 12:39 17:01 23:00 WBC RBC Hgb Hct MCV MCH MCHC RDW Plt Count MPV Immature Gran % (Auto) Neut % (Auto) Lymph % (Auto) [place] % (Auto) Eos % (Auto) Baso % (Auto) Lymph # (Auto) [place] # (Auto) Eos # (Auto) Baso # (Auto) Abs Immat Gran (auto) Absolute Neuts (auto) Absolute Nucleated RBC Nucleated RBC % (auto) PT INR Sodium Potassium Chloride Carbon Dioxide Anion Gap BUN Creatinine Estim Creat Clear Calc Estimated GFR POC Glucose 195 H 277 H 249 H Random Glucose Calcium 04/10/20 04/10/20 04/10/20 06:22 08:18 11:34 WBC RBC Hgb Hct MCV MCH MCHC RDW Plt Count MPV Immature Gran % (Auto) Neut % (Auto) Lymph % (Auto) [place] % (Auto) Eos % (Auto) Baso % (Auto) Lymph # (Auto) [place] # (Auto) Eos # (Auto) Baso # (Auto) Abs Immat Gran (auto) Absolute Neuts (auto) Absolute Nucleated RBC Nucleated RBC % (auto) PT 38.3 H INR 3.2 H Sodium Potassium Chloride Carbon Dioxide Anion Gap BUN Creatinine Estim Creat Clear Calc Estimated GFR POC Glucose 166 H 188 H Random Glucose Calcium 04/10/20 04/10/20 04/11/20 16:58 21:07 06:30 WBC RBC Hgb Hct MCV MCH MCHC RDW Plt Count MPV Immature Gran % (Auto) Neut % (Auto) Lymph % (Auto) [place] % (Auto) Eos % (Auto) Baso % (Auto) Lymph # (Auto) [place] # (Auto) Eos # (Auto) Baso # (Auto) Abs Immat Gran (auto) Absolute Neuts (auto) Absolute Nucleated RBC Nucleated RBC % (auto) PT INR Sodium Potassium Chloride Carbon Dioxide Anion Gap BUN Creatinine Estim Creat Clear Calc Estimated GFR POC Glucose 285 H 300 H 157 H Random Glucose Calcium 04/11/20 04/11/20 04/11/20 07:54 11:45 16:51 WBC RBC Hgb Hct MCV MCH MCHC RDW Plt Count MPV Immature Gran % (Auto) Neut % (Auto) Lymph % (Auto) [place] % (Auto) Eos % (Auto) Baso % (Auto) Lymph # (Auto) [place] # (Auto) Eos # (Auto) Baso # (Auto) Abs Immat Gran (auto) Absolute Neuts (auto) Absolute Nucleated RBC Nucleated RBC % (auto) PT 30.6 H D INR 2.6 H Sodium Potassium Chloride Carbon Dioxide Anion Gap BUN Creatinine Estim Creat Clear Calc Estimated GFR POC Glucose 244 H 164 H Random Glucose Calcium 04/11/20 04/12/20 04/12/20 21:10 06:30 08:03 WBC RBC Hgb Hct MCV MCH MCHC RDW Plt Count MPV Immature Gran % (Auto) Neut % (Auto) Lymph % (Auto) [place] % (Auto) Eos % (Auto) Baso % (Auto) Lymph # (Auto) [place] # (Auto) Eos # (Auto) Baso # (Auto) Abs Immat Gran (auto) Absolute Neuts (auto) Absolute Nucleated RBC Nucleated RBC % (auto) PT 17.9 H D INR 1.5 H Sodium Potassium Chloride Carbon Dioxide Anion Gap BUN Creatinine Estim Creat Clear Calc Estimated GFR POC Glucose 310 H 134 H Random Glucose Calcium 04/12/20 04/12/20 04/12/20 11:41 17:17 21:38 WBC RBC Hgb Hct MCV MCH MCHC RDW Plt Count MPV Immature Gran % (Auto) Neut % (Auto) Lymph % (Auto) [place] % (Auto) Eos % (Auto) Baso % (Auto) Lymph # (Auto) [place] # (Auto) Eos # (Auto) Baso # (Auto) Abs Immat Gran (auto) Absolute Neuts (auto) Absolute Nucleated RBC Nucleated RBC % (auto) PT INR Sodium Potassium Chloride Carbon Dioxide Anion Gap BUN Creatinine Estim Creat Clear Calc Estimated GFR POC Glucose 309 H 227 H 327 H Random Glucose Calcium 04/13/20 04/13/20 04/13/20 05:50 09:05 12:13 WBC RBC Hgb Hct MCV MCH MCHC RDW Plt Count MPV Immature Gran % (Auto) Neut % (Auto) Lymph % (Auto) [place] % (Auto) Eos % (Auto) Baso % (Auto) Lymph # (Auto) [place] # (Auto) Eos # (Auto) Baso # (Auto) Abs Immat Gran (auto) Absolute Neuts (auto) Absolute Nucleated RBC Nucleated RBC % (auto) PT INR Sodium Potassium Chloride Carbon Dioxide Anion Gap BUN Creatinine 1.01 Estim Creat Clear Calc 107.4 Estimated GFR > 60 POC Glucose 258 H 249 H Random Glucose Calcium 04/13/20 04/13/20 04/13/20 13:53 13:53 16:40 WBC 10.3 RBC 4.85 Hgb 12.8 Hct 41.5 MCV 85.6 MCH 26.4 L MCHC 30.8 L RDW 17.0 H Plt Count 334 MPV 11.0 Immature Gran % (Auto) 0.4 Neut % (Auto) 66.7 Lymph % (Auto) 24.6 [place] % (Auto) 6.2 Eos % (Auto) 1.7 Baso % (Auto) 0.4 Lymph # (Auto) 2.5 [place] # (Auto) 0.6 Eos # (Auto) 0.2 Baso # (Auto) 0.0 Abs Immat Gran (auto) 0.04 H Absolute Neuts (auto) 6.9 Absolute Nucleated RBC 0.000 Nucleated RBC % (auto) 0.0 PT 15.1 H INR 1.3 H Sodium 138 Potassium 4.9 Chloride 100 Carbon Dioxide 27 Anion Gap 16 BUN 14 D Creatinine 1.12 Estim Creat Clear Calc 96.9 Estimated GFR 53 POC Glucose Random Glucose 351 H* Calcium 9.2 D 04/13/20 04/13/20 04/14/20 16:48 21:21 08:59 WBC RBC Hgb Hct MCV MCH MCHC RDW Plt Count MPV Immature Gran % (Auto) Neut % (Auto) Lymph % (Auto) [place] % (Auto) Eos % (Auto) Baso % (Auto) Lymph # (Auto) [place] # (Auto) Eos # (Auto) Baso # (Auto) Abs Immat Gran (auto) Absolute Neuts (auto) Absolute Nucleated RBC Nucleated RBC % (auto) PT INR Sodium Potassium Chloride Carbon Dioxide Anion Gap BUN Creatinine Estim Creat Clear Calc Estimated GFR POC Glucose 266 H 190 H 164 H Random Glucose Calcium 04/14/20 04/14/20 04/14/20 09:48 11:43 16:56 WBC RBC Hgb Hct MCV MCH MCHC RDW Plt Count MPV Immature Gran % (Auto) Neut % (Auto) Lymph % (Auto) [place] % (Auto) Eos % (Auto) Baso % (Auto) Lymph # (Auto) [place] # (Auto) Eos # (Auto) Baso # (Auto) Abs Immat Gran (auto) Absolute Neuts (auto) Absolute Nucleated RBC Nucleated RBC % (auto) PT 14.6 H INR 1.2 H Sodium Potassium Chloride Carbon Dioxide Anion Gap BUN Creatinine Estim Creat Clear Calc Estimated GFR POC Glucose 272 H 309 H Random Glucose Calcium 04/14/20 04/15/20 04/15/20 21:56 08:05 08:35 WBC RBC Hgb Hct MCV MCH MCHC RDW Plt Count MPV Immature Gran % (Auto) Neut % (Auto) Lymph % (Auto) [place] % (Auto) Eos % (Auto) Baso % (Auto) Lymph # (Auto) [place] # (Auto) Eos # (Auto) Baso # (Auto) Abs Immat Gran (auto) Absolute Neuts (auto) Absolute Nucleated RBC Nucleated RBC % (auto) PT 15.5 H INR 1.3 H Sodium Potassium Chloride Carbon Dioxide Anion Gap BUN Creatinine Estim Creat Clear Calc Estimated GFR POC Glucose 340 H 185 H Random Glucose Calcium 04/15/20 04/15/20 04/15/20 12:02 17:23 21:13 WBC RBC Hgb Hct MCV MCH MCHC RDW Plt Count MPV Immature Gran % (Auto) Neut % (Auto) Lymph % (Auto) [place] % (Auto) Eos % (Auto) Baso % (Auto) Lymph # (Auto) [place] # (Auto) Eos # (Auto) Baso # (Auto) Abs Immat Gran (auto) Absolute Neuts (auto) Absolute Nucleated RBC Nucleated RBC % (auto) PT INR Sodium Potassium Chloride Carbon Dioxide Anion Gap BUN Creatinine Estim Creat Clear Calc Estimated GFR POC Glucose 296 H 219 H 395 H* Random Glucose Calcium 04/15/20 04/16/20 04/16/20 23:29 06:29 10:19 WBC RBC Hgb Hct MCV MCH MCHC RDW Plt Count MPV Immature Gran % (Auto) Neut % (Auto) Lymph % (Auto) [place] % (Auto) Eos % (Auto) Baso % (Auto) Lymph # (Auto) [place] # (Auto) Eos # (Auto) Baso # (Auto) Abs Immat Gran (auto) Absolute Neuts (auto) Absolute Nucleated RBC Nucleated RBC % (auto) PT 18.3 H INR 1.5 H Sodium Potassium Chloride Carbon Dioxide Anion Gap BUN Creatinine Estim Creat Clear Calc Estimated GFR POC Glucose 284 H 82 Random Glucose Calcium DS: Summary Hospital Course Hospital Course: Ms. Mccann is a 45 year-old woman with hx of BPD, PTSD who has been fairly stable for past 8 years without inpatient psychiatric admission but started decompensating during [place] as most of her outreach team was unable to provide face to face services. Ms. Mccann was brought via EMS to [facility] after her outreach team completed home visit and pateint was locked in her room with a knife threatening to kill herself. Pt did not engage in any self injurious behavior and agreed to go to the ED. On the unit, pt initially presented as guarded, withdrawan. She reported isolation from providers, feeling like friends were lying to her as triggers for increased symptoms of depression. She reported intermittent suicidal ideation but denied any plan or intent to hurt herself. Pt reports eating and sleeping well. She denied VH/AH and did not appear to be responding to internal stimuli. Pt describe going into dark mood when triggered. She endorsed feeling hopeless/helpless but again denied throughout this admission any plan or intent to hurt herself. Ms. Mccann did well with groups and increased interaction with peers. She gradually was more visible in the unit and social with select peers. There were no incidences of disruptive behaviors nor use of restraints. After discussing risks, benefits and alternative treatment options, Ms. Mccann agreed to continue current medications as they were overall helpful with mood and most decompensation had to do with lack of supports during COVID pandemic. Collateral information was gathered from her OP team through [facility], including her OP therapist, bottle caser and VNA. They maintained communication with Ms. Mccann through out this admission. At time of discharged they reported patient appeared in much improved condition and denied any safety concerns. Time spent discussing smoking cessation with patient: 3 to 10 minutes Status at Discharge Cognitive/behavioral status at discharge: Pt is calm, cooperative Functional status at discharge: independent ambulation Overall status at discharge: patient is back to baseline Time Spent with Patient Time attestation: Total time spent providing and/or coordinating discharge services: Time spent: Greater than 30 minutes
== END 2020-04-16 11:50 | disposition home or self-care (01) | DRG 753 ==
LOC: HO.ED 04-09 19:34 → HO.PM5 04-09 20:19
PROVIDERS: Clinical Nurse Specialist Psychiatric/Mental Health, Adult; Nurse Practitioner Acute Care; Nurse Practitioner Primary Care; Physician Assistant; Admitting Provider Psychiatry & Neurology Psychiatry; Emergency Provider Emergency Medicine; PCP Internal Medicine; Visit Provider Social Worker
DX: F31.9 Bipolar disorder, unspecified (principal); R45.851 Suicidal ideations; E66.01 Morbid (severe) obesity due to excess calories; I95.9 Hypotension, unspecified; F60.3 Borderline personality disorder; Z68.43 Body mass index [BMI] 50.0-59.9, adult; F43.10 Post-traumatic stress disorder, unspecified; R79.1 Abnormal coagulation profile; I10 Essential (primary) hypertension; Z79.01 Long term (current) use of anticoagulants; E03.9 Hypothyroidism, unspecified; Z20.822 Contact with and (suspected) exposure to COVID-19; Z79.4 Long term (current) use of insulin; Z88.0 Allergy status to penicillin; Z88.6 Allergy status to analgesic agent; Z79.899 Other long term (current) drug therapy
CPT/HCPCS: 36415; 80048; 80076; 80307; 80320; 81001; 81025; 82565; 82947; 83735; 85025; 85610; 87635; 93005; 99222; 99232; 99239; 99285

== ENCOUNTER → 2020-05-06 07:45 | Outpatient (BNVA) | payer OTHER, SELFPAY | PROVIDERS: PCP Internal Medicine; Visit Provider Nurse Practitioner Gerontology ==

== ENCOUNTER 2020-05-06 16:40 | Emergency (ER) | payer OTHER, SELFPAY ==
--- NOTE | ~2020-05-06 | XR_ITS ---
EXAMINATIONS: THORACIC SPINE 3 VIEWS AND LUMBOSACRAL SPINE 3 VIEWS CLINICAL INFORMATION: Pain after fall. COMPARISON: None. TECHNIQUE: AP, lateral, swimmer's radiographs of the thoracic spine were obtained. AP, lateral, spot lateral radiographs of the lumbar spine were obtained. FINDINGS: There are no fractures. The thoracic and lumbar vertebrae are in normal alignment. Disc heights and vertebral body heights are well-preserved. XR/XR lumbar spine 2-3V IMPRESSION: Unremarkable thoracic and lumbar spine series.
--- NOTE | ~2020-05-06 | XR_ITS ---
EXAMINATIONS: THORACIC SPINE 3 VIEWS AND LUMBOSACRAL SPINE 3 VIEWS CLINICAL INFORMATION: Pain after fall. COMPARISON: None. TECHNIQUE: AP, lateral, swimmer's radiographs of the thoracic spine were obtained. AP, lateral, spot lateral radiographs of the lumbar spine were obtained. FINDINGS: There are no fractures. The thoracic and lumbar vertebrae are in normal alignment. Disc heights and vertebral body heights are well-preserved. XR/XR thoracic spine 3V IMPRESSION: Unremarkable thoracic and lumbar spine series.
--- NOTE | ~2020-05-06 | CT_ITS ---
EXAMINATION: CT HEAD WITHOUT CONTRAST CT CERVICAL SPINE WITHOUT CONTRAST CLINICAL INFORMATION: Fall. Loss of consciousness. COMPARISON: CT head from 03/08/2018. TECHNIQUE: Contiguous axial imaging was performed from the skull base to vertex without intravenous administration of contrast. Contiguous axial imaging was performed from the upper chest through the skull base without intravenous administration of contrast. Coronal and sagittal reformats were obtained at the acquisition workstation. This CT examination was performed using dose optimization techniques as appropriate, variously including the following: *Automated exposure control. *Adjustment of mA and/or kV according to patient size (this includes techniques or standardized protocols for targeted exams where dose is matched to indication/reason for exam; i.e. extremities or head). *Use of iterative reconstruction technique. DLP: 1832 mGy-cm FINDINGS: Head: There is no evidence of acute intracranial hemorrhage or edematous territorial infarction. Scattered hypoattenuation in the periventricular and deep white matter. Floyd-white matter differentiation is preserved. The ventricles are normal in size and configuration. Persistent cavum septum pellucidum et vergae. No evidence for obstructive hydrocephalus. No abnormal mass effect or midline shift. No extra-axial fluid collections. Mild subgaleal hematoma along the occiput, measuring 0.4 cm in depth. No acute osseous abnormalities. The mastoid air cells and paranasal sinuses are clear. Right-sided lens extraction. Cervical Spine: The atlantooccipital and atlantoaxial articulations remain well aligned. Straightening of the normal cervical lordosis. Otherwise, there is anatomic alignment of the vertebral bodies and posterior elements. Congenital nonunion of the posterior arch of C1. No evidence of acute fracture or subluxation. The vertebral body heights and disc spaces are maintained. There is no prevertebral soft tissue swelling. The thyroid gland and remaining cervical soft tissues are normal in appearance. The lung apices demonstrate no abnormalities. CT/CT cervical spine wo con IMPRESSION: 1. No evidence of acute intracranial hemorrhage or edematous territorial infarction. Nonspecific mild to moderate white matter changes. 2. No evidence of acute fracture or traumatic subluxation of the cervical spine.
[2020-05-06 16:49] VITALS: BP 122/62; BP 124/70; PULSE 88; PULSE 93; RESP 18; TEMP 36.8; O2SAT 97; O2SAT 98; BMI 51.6
[2020-05-06 18:00] VITALS: BP 103/52; PULSE 85; RESP 16; TEMP 36.9; O2SAT 91
--- NOTE | 2020-05-06 18:43 | ED_ITS ---
HPI - Fall General Chief Complaint: Fall Stated Complaint: FALL FROM WHEELCHAIR,BUMP ON HEAD,+THINNERS Time Seen by Provider: 05/06/20 18:22 Source: patient and EMS Mode of arrival: EMS History of Present Illness HPI Narrative: 44 y/o female with history of depression, anxiety, borderline personality disorder, PTSD, reported dissociative identity disorder, morbid obesity, asthma, ROGERIO noncompliant with CPAP, HLD, chronic respiratory failure on PRN O2 who presents with headache, neck pain, lightheadedness, and blurry vision S/P mechanical fall from wheelchair this afternoon. Reports went to sit backwards on wheelchair and it slipped, she fell backwards, hitting head, unknown LOC, unknown time on ground, reports fall was unwitnessed, was home alone and woke up on the ground. Does take Coumadin. Denies symptoms prior to fall. Admits to N/V. Denies visual loss, chest pain, shortness of breath, nausea, urinary incontinence/retention, weakness, numbness MD complaint: fall Related Data Home Medications Medication Instructions Recorded Confirmed albuterol sulfate 2.5 mg INHALATION QID PRN 12/26/19 05/06/20 albuterol sulfate [ProAir HFA] 2 puff INHALATION Q4-6H PRN 12/26/19 05/06/20 epinephrine [EpiPen 2-Mykel] 0.3 mg IM NEEDED PRN 12/26/19 05/06/20 lisinopril 5 mg PO DAILY 12/26/19 05/06/20 medroxyprogesterone [Provera] 20 mg PO DAILY 12/26/19 05/06/20 metoprolol succinate 50 mg PO DAILY 12/26/19 05/06/20 omeprazole 20 mg PO DAILY 12/26/19 05/06/20 trazodone 50 mg PO BEDTIME PRN 12/26/19 05/06/20 atorvastatin 20 mg PO DAILY 04/07/20 05/06/20 clonazepam 0.5 tab PO BID 04/07/20 05/06/20 clonazepam 0.5 tab PO DAILY PRN 04/07/20 05/06/20 levothyroxine 75 mcg PO DAILY 04/07/20 05/06/20 loratadine 10 mg PO DAILY 04/07/20 05/06/20 metformin 1,000 mg PO BID 04/07/20 05/06/20 warfarin 10 mg PO DIRECTED 04/07/20 05/06/20 blood sugar diagnostic #10 ea 05/06/20 05/06/20 flash glucose sensor #1 ea 05/06/20 05/06/20 sertraline 100 mg tablet 100 mg PO tab 05/06/20 05/06/20 Previous Rx's Medication Instructions Recorded dulaglutide 1.5 mg/0.5 mL 1.5 mg SUBCUT QWEEK #2 ml 04/04/20 subcutaneous pen injector insulin glargine U-300 conc 300 50 unit SUBCUT BEDTIME 30 Days #6 04/04/20 unit/mL (3 mL) subcutaneous pen ml acetaminophen [Tylenol Extra 500 mg PO Q6H PRN #20 tab 05/06/20 Strength] cyclobenzaprine 5 mg PO Q8H PRN 5 Days #14 tab 05/06/20 insulin lispro 100 unit/mL See Rx Instructions SUBCUT TID 30 05/06/20 subcutaneous pen Days #30 ml lidocaine [Lidoderm] 1 patch TOPICAL DAILY PRN #30 ea 05/06/20 MDD remove after 12 hours Allergies Allergy/AdvReac Type Severity Reaction Status Date / Time Penicillins [PENICILLINS] Allergy Intermediate HIVES Verified 05/06/20 09:01 egg [Egg] Allergy Mild SWELLING Verified 05/06/20 09:01 aspirin Allergy Unknown Unknown Verified 05/06/20 09:01 bee pollen [BEE STINGS] Allergy Unknown UNKNOWN Verified 05/06/20 09:01 lactose [LACTOSE] Allergy Unknown UNKNOWN Verified 05/06/20 09:01 latex [LATEX] Allergy Unknown HIVES Verified 05/06/20 09:01 oxycodone Allergy Unknown Unknown Verified 05/06/20 09:01 peanut [PEANUT] Allergy Unknown UNKNOWN Verified 05/06/20 09:01 penicillin V Allergy Unknown Unknown Verified 05/06/20 09:01 eggs,bees,latex,peanuts Allergy Unknown Unknown Uncoded 05/06/20 09:01 medical tape Allergy Unknown Unknown Uncoded 05/06/20 09:01 TAPE,PLASTIC Allergy Unknown RASH Uncoded 05/06/20 09:01 Review of Systems Review of Systems: Constitutional: No Weight loss, No Fever Eyes: +Vision Changes Cardiovascular: No Chest Pain, No SOB Gastrointestinal: + Nausea, + Vomiting, No Abdominal pain Genitourinary: No Dysuria, No Urinary Incontinence/retention Musculoskeletal: +neck/back pain, No Myalgias, No Joint Swelling Skin: No Skin Lesions, No rash Neuro: No Weakness, No Numbness, Unknown Loss of Consciousness, + Dizziness,+ He adache Yes all other systems are reviewed and are negative Neurologic: Denies Abnormal speech present and Denies Sensory deficit (Neuro) [facility] Past Medical History Attestation statement: The following information was validated with the patient. Medical History Anxiety Asthma BMI 50.0-59.9, adult Cardiomyopathy CHF (congestive heart failure) Depression Diabetes mellitus, type 2 Diabetes type 2, uncontrolled DVT (deep vein thrombosis) in Essential hypertension Gallstones Hyperlipidemia LDL goal <70 Hypertension Hypothyroidism Irritable bowel Mood disorder ROGERIO (obstructive sleep apnea) Pancreatitis PTSD (post-traumatic stress disorder) Pulmonary embolism Surgical History History of dental surgery History of open heart surgery Hx of hernia repair Hx of removal of cyst Family History Family History Paternal Grandmother Diabetes Social History Social History Household Members: None Housing: Apartment Alcohol intake: current Alcohol intake frequency: holidays/special occasions only Smoking Status: Never smoker Use of substances other than those prescribed or required for medical reasons: No Advance Directives: No Advance Directives Information Provided: No service: No Sexual orientation: Lesbian/Good/Homosexual Physical Exam Vital Signs: Vital Signs: Last Vital Signs Temp 97.7 F 05/06/20 20:00 Pulse 88 05/06/20 20:00 Resp 16 05/06/20 20:00 BP 103/52 L 05/06/20 20:00 Pulse Ox 93 05/06/20 20:00 Body Mass Index 51.6 Const: General: cooperative and healthy appearing Nutritional Appearance: obese Orientation/consciousness: patient oriented x3 Limitations: no limitations HENMT: Other: + posterior scalp palpable hematoma with tenderness Head: No Belcher's sign, Yes hematoma, No laceration and No raccoon eyes Ears: hearing grossly normal bilaterally General nose exam: Normal external nose present Face and sinus: Yes normal facial exam Mouth: Normal oral and palatal mucosa present Throat: Yes posterior oropharynx normal Eyes: General: appearance normal, both eyes and all related structures Pupils: Equal, round and reactive pupils present EOM: EOMs intact bilaterally Neck: Other: No midline cervical spinous tenderness Neck: Yes normal visual inspection and Yes no meningeal signs Resp: Effort & Inspection: normal respiratory effort and no stridor Cardio: Rate: regular rate GI: Inspection: Yes normal to inspection Palpation (GI): Soft to palpation, nontender, no guarding and not rigid Back/Spine/Pelvis: Other: + midline midthoracic spinous tenderness/paraspinal tenderness. + upper thoracic paraspinal MSK tenderness. No deformity Skin: Rashes: no rashes Wounds: no wounds Neuro: General: patient oriented x3, tone normal, moves all extremities, no meningeal signs, no focal motor deficits and CN's II-XI intact bilaterally Cranial nerves: Yes Equal, round and reactive pupils present Cognition (Neuro): normal cognition Speech: No Abnormal speech present Gait exam (Neuro): Normal gait present Motor exam (neuro): 5/5 motor strength present throughout and Pronator motor function not present Sensory Exam: No Sensory deficit (Neuro) Coordination: [id number] test normal and Romberg test negative Extrem: General: Yes normal to inspection and Yes full ROM Course Course Course Narrative: -x-ray thoracic/lumbar spines unremarkable. -INR therapeutic -glucose 352, no anion gap > 5U SQ insulin given -2100-- ED care transferred to FELIC[facility] Hernandes pending Head CT/C-spine CT results MDM - Fall MDM Narrative Medical decision making narrative: 44 y/o female with history of depression, a nxiety, borderline personality disorder, PTSD, reported dissociative identity disorder, morbid obesity, asthma, ROGERIO noncompliant with CPAP, HLD, chronic respiratory failure on PRN O2 who presents with headache, neck pain, lightheadedness, and blurry vision S/P mechanical fall from wheelchair this af ternoon. On exam VSS, NAD/well-appearing, no focal neuro deficits, physical exam as above. Concern for ICH vs fracture vs rhabdo. Low concern for ACS/infectious etiology, cauda equina, or cord compression. No red flag symptoms Plan: Head/C-spine CT, labs, x-rays, re-evaluate Medical Records Attestation: I reviewed the patient's medical records. Lab Data Attestation: I reviewed the patient's lab results. Result diagrams: 05/06/20 19:24 05/06/20 19:24 Labs: Lab Results 05/06/20 05/06/20 05/06/20 Range/Units 19:24 19:24 19:24 WBC 10.2 (4.8-10.8) X10*3/uL RBC 4.86 (4.20-5.50) X10*6/uL Hgb 12.8 (12.0-16.0) g/dl Hct 41.0 (37-47) % MCV 84.4 (80-98) fL MCH 26.3 L (27.0-33.0) pg MCHC 31.2 (31.0-35.0) g/dl RDW 16.5 H (11.0-16.0) % Plt Count 329 (160-400) X10*3/uL MPV 10.7 (9.4-12.3) fL Immature Gran % (Auto) 0.3 (0.0-0.4) % Neut % (Auto) 64.1 (45-73) % Lymph % (Auto) 27.3 (20-40) % [place] % (Auto) 5.5 (2-11) % Eos % (Auto) 2.1 (0-4) % Baso % (Auto) 0.7 (0-2) % Lymph # (Auto) 2.8 (1.2-4.9) X10*3/uL [place] # (Auto) 0.6 (0.1-1.2) X10*3/uL Eos # (Auto) 0.2 (0.0-0.4) X10*3/uL Baso # (Auto) 0.1 (0.0-0.2) X10*3/uL Abs Immat Gran (auto) 0.03 (0.00-0.03) X10*3/uL Absolute Neuts (auto) 6.5 (2.0-8.3) X10*3/uL Absolute Nucleated RBC 0.000 (0.0-0.012) X10*3/uL Nucleated RBC % (auto) 0.0 (0.0-0.2) /100WBC PT 34.5 H D (10.8-13.0) SEC INR 2.9 H (0.9-1.1) APTT 58.9 H (24.1-38.0) SEC Sodium 138 (135-145) mmol/L Potassium 4.6 (3.3-5.1) mmol/L Chloride 102 (96-108) mmol/L Carbon Dioxide 28 (22-29) mmol/L Anion Gap 13 (12-20) BUN 13 (9-16) mg/dL Creatinine 1.11 (0.5-1.4) mg/dL Estim Creat Clear Calc 96.6 Estimated GFR 54 Random Glucose 352 H* (60-115) mg/dL Calcium 9.2 (8.4-10.2) mg/dL Total Bilirubin 0.4 (0.0-1.0) mg/dL Direct Bilirubin 0.2 (0.0-0.5) mg/dL AST 14 (5-31) U/L ALT 18 (0-31) U/L Alkaline Phosphatase 87 (39-117) U/L Total Creatine Kinase 87 (26-140) U/L Total Protein 7.1 (6.5-8.0) g/dL Albumin 4.0 (3.5-5.0) g/dL Discharge Plan Discharge Clinical Impression: Head injury, acute, Fall Instructions: Head Injury (ED) Additional Instructions: Your INR is 2.9. Make sure it is monitored closely. Her back x-rays are unremarkable You need to have close follow-up with her doctor Your pain is likely musculoskeletal Flexeril is a muscle relaxer, take at night as it makes you drowsy, do not drive, drink alcohol, or operate machinery while taking it Lidoderm patches are numbing patches, apply to painful area In addition take Tylenol at home If symptoms persist or worsen, pain becomes unbearable, you developed urinary retention or incontinence, or weakness return to the ED Prescriptions: New acetaminophen [Tylenol Extra Strength] 500 mg tablet 500 mg PO Q6H PRN (Reason: pain or fever) Qty: 20 RF: 0 cyclobenzaprine 5 mg tablet 5 mg PO Q8H PRN (Reason: pain (scale score 7-10)) 5 Days Qty: 14 RF: 0 lidocaine [Lidoderm] 5 % adhesive patch,medicated 1 patch topical DAILY MDD remove after 12 hours PRN (Reason: pain) Qty: 30 RF: 0 No Action Trulicity 1.5 mg/0.5 mL pen injector 1.5 mg subcut QWEEK Qty: 2 RF: 3 insulin glargine U-300 conc [Toujeo Max U-300 SoloStar] 300 unit/mL (3 mL) insulin pen 50 unit subcut BEDTIME 30 Days Qty: 6 RF: 3 albuterol sulfate 2.5 mg /3 mL (0.083 %) Solution For Nebulization 2.5 mg INHALATION QID PRN (Reason: Allergic Reaction) RF: 0 epinephrine [EpiPen 2-Mykel] 0.3 mg/0.3 mL Auto-Injector 0.3 mg IM NEEDED PRN (Reason: SEVERE ALLERGIC REACTION) RF: 0 medroxyprogesterone [Provera] 10 mg Tablet 20 mg PO DAILY RF: 0 trazodone 50 mg Tablet 50 mg PO BEDTIME PRN (Reason: Sleep) RF: 0 metoprolol succinate 50 mg Tablet Extended Release 24 Hr 50 mg PO DAILY RF: 0 omeprazole 20 mg Capsule,Delayed Release(Dr/Ec) 20 mg PO DAILY RF: 0 lisinopril 5 mg Tablet 5 mg PO DAILY RF: 0 albuterol sulfate [ProAir HFA] 90 mcg/actuation Hfa Aerosol Inhaler 2 puff INHALATION Q4-6H PRN (Reason: COUGH/WHEEZE) RF: 0 atorvastatin 20 mg tablet 20 mg PO DAILY RF: 0 clonazepam 1 mg tablet 0.5 tab PO DAILY PRN (Reason: anxiety) RF: 0 clonazepam 1 mg tablet 0.5 tab PO BID RF: 0 levothyroxine 75 mcg tablet 75 mcg PO DAILY RF: 0 loratadine 10 mg tablet 10 mg PO DAILY RF: 0 metformin 1,000 mg tablet 1,000 mg PO BID RF: 0 warfarin 5 mg tablet 10 mg PO DIRECTED RF: 0 sertraline 100 mg tablet 100 mg PO RF: 0 (DME) FreeStyle [place] 14 Day Sensor Kit See Rx Instructions ea topical .MEDSUPPLY Qty: 1 RF: 0 (DME) FreeStyle Lite Strips Strip See Rx Instructions strip .ROUTE .MEDSUPPLY Qty: 10 RF: 0 insulin lispro [Humalog KwikPen Insulin] 100 unit/mL insulin pen See Rx Instructions subcut TID 30 Days Qty: 30 RF: 3 Referrals: Renee Saavedra MD [Primary Care Provider] - 2 days
--- NOTE | 2020-05-06 18:50 | PC.NURSE ---
no neuro deficits noted. sml palpable soft lump on posterior head. denies LOC> on thinners. is steady on feet. awaits CT.
[2020-05-06 19:28] LABS: MANUAL DIFF FLAG NO
[2020-05-06 19:31] LABS: Basophils Absolute Auto 0.1 X10*3/uL (0.0-0.2); Basophils Percent Auto 0.7 % (0-2); Eosinophils Absolute Auto 0.2 X10*3/uL (0.0-0.4); Eosinophils Percent Auto 2.1 % (0-4); Hemoglobin 12.8 g/dl (12.0-16.0); Imm Gran Abs Auto 0.03 X10*3/uL (0.00-0.03); Imm Gran Pct Auto 0.3 % (0.0-0.4); Lymphocytes Absolute Auto 2.8 X10*3/uL (1.2-4.9); Lymphocytes Percent Auto 27.3 % (20-40); Mean Corpuscular HGB Conc 31.2 g/dl (31.0-35.0); Mean Corpuscular Hemoglobin 26.3 pg (27.0-33.0); Mean Corpuscular Volume 84.4 fL (80-98); Mean Platelet Volume 10.7 fL (9.4-12.3); Monocytes Absolute Auto 0.6 X10*3/uL (0.1-1.2); Monocytes Percent Auto 5.5 % (2-11); Neutrophils Absolute Auto 6.5 X10*3/uL (2.0-8.3); Neutrophils Percent Auto 64.1 % (45-73); Platelet Count 329 X10*3/uL (160-400); Red Blood Count 4.86 X10*6/uL (4.20-5.50); Red Cell Distribution Width 16.5 % (11.0-16.0); White Blood Count 10.2 X10*3/uL (4.8-10.8)
[2020-05-06 19:37] LABS: INTERNATIONAL NORM RATIO 2.9 (0.9-1.1); Prothrombin Time 34.5 SEC (10.8-13.0)
[2020-05-06 19:40] LABS: Partial Thromboplastin Time 58.9 SEC (24.1-38.0)
[2020-05-06 20:00] VITALS: BP 103/52; PULSE 88; RESP 16; TEMP 36.5; O2SAT 93
[2020-05-06 20:03] LABS: Alanine Aminotransferase 18 U/L (0-31); Alkaline Phosphatase 87 U/L (39-117); Anion Gap 13 (12-20); Aspartate Amino Transferase 14 U/L (5-31); Bilirubin Direct 0.2 mg/dL (0.0-0.5); Bilirubin Total 0.4 mg/dL (0.0-1.0); Blood Urea Nitrogen 13 mg/dL (9-16); Calcium 9.2 mg/dL (8.4-10.2); Carbon Dioxide 28 mmol/L (22-29); Chloride 102 mmol/L (96-108); Creatinine Clr Calc Pharmacy 96.6; Estimated Glomerular Filt Rate 54; Glucose Random 352 mg/dL (60-115); Potassium 4.6 mmol/L (3.3-5.1); Sodium 138 mmol/L (135-145); Total Protein 7.1 g/dL (6.5-8.0)
[2020-05-06] MEDS: Acetaminophen 325 MG TABLET 650 MG PO (20:23)
--- NOTE | 2020-05-06 20:59 | PC.NURSE ---
PT AWAITING FOR PENDING RESULTS. PT C/O HEADACHE AND MEDICATED WITH TYLENOL. PT REMAINS ALERT, RESPIRATONS EASY, N/L. SKIN W/D. WILL CONTINUE TO MONITOR PT.
[2020-05-06 21:54] VITALS: BP 114/72; PULSE 91; RESP 17; TEMP 36.9; O2SAT 92
[2020-05-06] MEDS: Insulin Regular, Human 100 UNIT/ML 3 ML VIAL SUBCUT (22:08)
== END 2020-05-07 00:14 | disposition home or self-care (01) ==
PROVIDERS: Physician Assistant; Emergency Provider Emergency Medicine; PCP Internal Medicine
DX: S09.90XA Unspecified injury of head, initial encounter (principal); M54.2 Cervicalgia; G44.309 Post-traumatic headache, unspecified, not intractable; G47.33 Obstructive sleep apnea (adult) (pediatric); W05.0XXA Fall from non-moving wheelchair, initial encounter; Y93.9 Activity, unspecified; Y92.009 Unspecified place in unspecified non-institutional (private) residence as the place of occurrence of the external cause; Y99.9 Unspecified external cause status; Z91.14 Patient's other noncompliance with medication regimen; Z79.899 Other long term (current) drug therapy; Z79.4 Long term (current) use of insulin
CPT/HCPCS: 36415; 70450; 72072; 72100; 72125; 80048; 80076; 82550; 85025; 85610; 85730; 99284

== ENCOUNTER 2020-05-14 19:34 | Emergency (ER) | payer OTHER, SELFPAY ==
--- NOTE | ~2020-05-14 | CT_ITS ---
EXAMINATION: CT HEAD WITHOUT CONTRAST CLINICAL INFORMATION: Fall with head injury. Occipital headache. COMPARISON: 05/06/2020 TECHNIQUE: Contiguous axial imaging was performed from the skull base to vertex without intravenous contrast. This CT examination was performed using dose optimization techniques as appropriate, variously including the following: * Automated exposure control * Adjustment of mA and/or kV according to patient size (this includes techniques or standardized protocols for targeted exams where dose is matched to indication/reason for exam; i.e. extremities or head) Use of iterative reconstruction technique DLP: 1039 mGy-cm. FINDINGS: There is no evidence of acute intracranial hemorrhage or territorial infarction. No abnormal mass effect or midline shift is seen. Floyd to white matter differentiation is well preserved. No extra-axial fluid collections are identified. No hydrocephalus. Cavum septum pellucidum et vergae. No significant volume loss. There is no abnormal attenuation within the brain parenchyma. The osseous structures and soft tissues are normal. The mastoid air cells and visualized portions of the paranasal sinuses are well aerated. CT/CT head/brain wo con IMPRESSION: No acute intracranial pathology.
[2020-05-14 22:37] VITALS: BP 139/64; PULSE 95; RESP 18; TEMP 36.8; O2SAT 95; BMI 51.6
[2020-05-14 23:27] VITALS: BP 145/110; PULSE 96; RESP 20; TEMP 37.1; O2SAT 96
[2020-05-15 04:00] VITALS: BP 121/58; PULSE 96; RESP 16; O2SAT 93
--- NOTE | 2020-05-15 05:05 | PC.NURSE ---
pt has lateral swelling to right ankle, good distal circulation. pt will need splint for right ankle, as ordered by MD. pt has been sleeping on stretcher for most of stay in ER.
--- NOTE | 2020-05-15 05:26 | ED.GENADULT ---
HPI - General Adult General Chief complaint: Head Injury Stated complaint: fall Time Seen by Provider: 05/15/20 05:14 Source: patient Mode of arrival: ambulatory Limitations: no limitations History of Present Illness HPI narrative: 45-year-old female who presents emergency department for evaluation occipital headache after a fall 10 days prior. The patient states that her wheel on her walker broke causing her to fall backward landing on her back and head. This event occurred 10 days prior. She does not believe that she lost consciousness. She was seen in the emergency department and had a negative CT scan of the head, negative thoracic and lumbar spine x-rays. She states that she has been taking Tylenol but despite that she has had a persistent, constant, throbbing, occipital headache which she states is 9/10 at its worst. The patient is concerned that her headache is not improved therefore she came back to the emergency department for evaluation. She states that she has constant nausea with no vomiting. She has a ringing in her right ear. She states she is seeing floaters in her vision which are new. She denied numbness, weakness, loss of bowel or bladder control. Related Data Home Medications Medication Instructions Recorded Confirmed albuterol sulfate 2.5 mg INHALATION QID PRN 12/26/19 05/06/20 albuterol sulfate [ProAir HFA] 2 puff INHALATION Q4-6H PRN 12/26/19 05/06/20 epinephrine [EpiPen 2-Mykel] 0.3 mg IM NEEDED PRN 12/26/19 05/06/20 lisinopril 5 mg PO DAILY 12/26/19 05/06/20 medroxyprogesterone [Provera] 20 mg PO DAILY 12/26/19 05/06/20 metoprolol succinate 50 mg PO DAILY 12/26/19 05/06/20 omeprazole 20 mg PO DAILY 12/26/19 05/06/20 trazodone 50 mg PO BEDTIME PRN 12/26/19 05/06/20 atorvastatin 20 mg PO DAILY 04/07/20 05/06/20 clonazepam 0.5 tab PO BID 04/07/20 05/06/20 clonazepam 0.5 tab PO DAILY PRN 04/07/20 05/06/20 levothyroxine 75 mcg PO DAILY 04/07/20 05/06/20 loratadine 10 mg PO DAILY 04/07/20 05/06/20 metformin 1,000 mg PO BID 04/07/20 05/06/20 warfarin 10 mg PO DIRECTED 04/07/20 05/06/20 blood sugar diagnostic #10 ea 05/06/20 05/06/20 flash glucose sensor #1 ea 05/06/20 05/06/20 sertraline 100 mg tablet 100 mg PO tab 05/06/20 05/06/20 Previous Rx's Medication Instructions Recorded dulaglutide 1.5 mg/0.5 mL 1.5 mg SUBCUT QWEEK #2 ml 04/04/20 subcutaneous pen injector insulin glargine U-300 conc 300 50 unit SUBCUT BEDTIME 30 Days #6 04/04/20 unit/mL (3 mL) subcutaneous pen ml acetaminophen [Tylenol Extra 500 mg PO Q6H PRN #20 tab 05/06/20 Strength] cyclobenzaprine 5 mg PO Q8H PRN 5 Days #14 tab 05/06/20 insulin lispro 100 unit/mL See Rx Instructions SUBCUT TID 30 05/06/20 subcutaneous pen Days #30 ml lidocaine [Lidoderm] 1 patch TOPICAL DAILY PRN #30 ea 05/06/20 MDD remove after 12 hours metoclopramide HCl [Reglan] 10 mg PO Q6H PRN #14 tab 05/15/20 Allergies Allergy/AdvReac Type Severity Reaction Status Date / Time Penicillins [PENICILLINS] Allergy Intermediate HIVES Verified 05/06/20 09:01 egg [Egg] Allergy Mild SWELLING Verified 05/06/20 09:01 aspirin Allergy Unknown Unknown Verified 05/06/20 09:01 bee pollen [BEE STINGS] Allergy Unknown UNKNOWN Verified 05/06/20 09:01 lactose [LACTOSE] Allergy Unknown UNKNOWN Verified 05/06/20 09:01 latex [LATEX] Allergy Unknown HIVES Verified 05/06/20 09:01 oxycodone Allergy Unknown Unknown Verified 05/06/20 09:01 peanut [PEANUT] Allergy Unknown UNKNOWN Verified 05/06/20 09:01 penicillin V Allergy Unknown Unknown Verified 05/06/20 09:01 eggs,bees,latex,peanuts Allergy Unknown Unknown Uncoded 05/06/20 09:01 medical tape Allergy Unknown Unknown Uncoded 05/06/20 09:01 TAPE,PLASTIC Allergy Unknown RASH Uncoded 05/06/20 09:01 Review of Systems Review of Systems: Yes all other systems are reviewed and are negative Neurologic: Reports Abnormal speech present [facility] Past Medical History Medical History Anxiety Asthma BMI 50.0-59.9, adult Cardiomyopathy CHF (congestive heart failure) Depression Diabetes mellitus, type 2 Diabetes type 2, uncontrolled DVT (deep vein thrombosis) in Essential hypertension Gallstones Hyperlipidemia LDL goal <70 Hypertension Hypothyroidism Irritable bowel Mood disorder ROGERIO (obstructive sleep apnea) Pancreatitis PTSD (post-traumatic stress disorder) Pulmonary embolism Surgical History History of dental surgery History of open heart surgery Hx of hernia repair Hx of removal of cyst Family History Family History Paternal Grandmother Diabetes Social History Social History Household Members: None Housing: Apartment Alcohol intake: current Alcohol intake frequency: holidays/special occasions only Smoking Status: Never smoker Advance Directives: No service: No Sexual orientation: Lesbian/Good/Homosexual Physical Exam Vital Signs: Vital Signs: Last Vital Signs Temp 98.8 F 05/14/20 23:27 Pulse 92 05/15/20 06:17 Resp 20 05/15/20 06:17 BP 116/61 05/15/20 06:17 Pulse Ox 94 05/15/20 06:17 Body Mass Index 51.6 Const: General: cooperative Nutritional Appearance: obese Orientation/consciousness: oriented to person and oriented to place Limitations: no limitations HENMT: Head: Yes normal to inspection, Yes normocephalic and Yes other (Soft tissue swelling left occiput, tender) Ears: external ears normal General nose exam: Normal external nose present Face and sinus: Yes normal facial exam Mouth: Normal oral and palatal mucosa present Throat: Yes posterior oropharynx normal Eyes: Periorbital: periorbital findings normal Eyelids: Yes eyelids normal Conjunctivae: conjunctivae normal Sclerae: sclerae normal Corneas: corneas normal Pupils: Equal, round and reactive pupils present Direct Ophthalmoscopy: normal light reflex Neck: Neck: Yes full ROM, Yes no lymphadenopathy, Yes no meningeal signs, Yes trachea midline and Yes supple Chest: Chest palpation & inspection: normal inspection of the chest and normal palpation of entire chest wall Resp: Effort & Inspection: normal respiratory effort and able to speak in complete sentences Auscultation: clear to auscultation bilaterally Cardio: Rate: regular rate Rhythm: regular rhythm Heart sounds: S1 normal heart sound present, S2 normal heart sound present and no murmurs GI: Inspection: Yes normal to inspection Palpation (GI): Soft to palpation, nontender, no guarding, not rigid and No hepatosplenomegaly present : General: Yes no CVA tenderness Back/Spine/Pelvis: Back: no CVA tenderness Cervical Spine: normal cervical lordosis Thoracic/Lumbar Spine: thoracic and lumbar spine normal to inspection Skin: Lesions: no lesions Rashes: no rashes Wounds: no wounds Neuro: General: oriented to person, oriented to place and no meningeal signs Cranial nerves: Yes CN's II-XII intact bilaterally and Yes Equal, round and reactive pupils present Cognition (Neuro): normal cognition Speech: Abnormal speech present Motor exam (neuro): 5/5 motor strength present throughout Extrem: General: Yes normal to inspection and Yes full ROM Psych: Appearance: well kempt Mental Status: mental status grossly normal Speech and movement: Normal speech and movement present Affect: normal affect Attitude: cooperative Thought process: Normal thought process present Thought content: Normal thought content present Course Course Course Narrative: 45-year-old female who fell 10 days prior and has a persistent, moderate to severe occipital headache. The patient does have tenderness with palpation of this area. Her neurologic exam is nonfocal. I am concerned that the patient may have a delayed bleed or that she may have a subdural hematoma therefore I did order a CT scan on the patient. Her pain was treated with Tylenol 1000 mg orally, Benadryl 50 mg orally and regular and 10 mg orally. 0739: The patient states her pain did improve slightly after seeing the above treatment. The patient's CT scan of the head revealed no acute process which is reassuring. Patient's presentation is consistent with a postconcussion syndrome and I did discuss this with the patient. The patient was started on the following regimen for her headaches, every 8 hours: Extra-strength Tylenol 1000 mg, Benadryl 50 mg and regular and 10 mg. She was given verbal and printed instructions and discharged home. Discharge Plan Discharge Clinical Impression: Post-concussion syndrome Acute headache Qualifiers: Headache type: unspecified Intractability: intractable Qualified Code(s): R51.9 - Headache, unspecified Patient Disposition: Home, Self-Care Instructions: Post Concussion Syndrome (ED) Additional Instructions: Your headache is consistent with a postconcussion syndrome. The repeat CT scan revealed no skull fractures and no bleeding in the brain which is reassuring. Take the following medications together every 6 hours as needed for headache: Extra-strength Tylenol 500 mg pills, 2 pills Benadryl 25 mg pills, 2 pills Reglan (metoclopramide) 10 mg Make sure you take all these medications together, these medications will make you sleepy. After you take these medications she should lie down in a dark quiet room and this will help the headache away. Follow-up with your doctor in 2 days. Please return to the emergency department if your symptoms get worse or if you develop any symptoms that are concerning to you. Prescriptions: New metoclopramide HCl [Reglan] 10 mg tablet 10 mg PO Q6H PRN (Reason: nausea and vomiting) Qty: 14 RF: 0 No Action Trulicity 1.5 mg/0.5 mL pen injector 1.5 mg subcut QWEEK Qty: 2 RF: 3 insulin glargine U-300 conc [Toujeo Max U-300 SoloStar] 300 unit/mL (3 mL) insulin pen 50 unit subcut BEDTIME 30 Days Qty: 6 RF: 3 albuterol sulfate 2.5 mg /3 mL (0.083 %) Solution For Nebulization 2.5 mg INHALATION QID PRN (Reason: Allergic Reaction) RF: 0 epinephrine [EpiPen 2-Mykel] 0.3 mg/0.3 mL Auto-Injector 0.3 mg IM NEEDED PRN (Reason: SEVERE ALLERGIC REACTION) RF: 0 medroxyprogesterone [Provera] 10 mg Tablet 20 mg PO DAILY RF: 0 trazodone 50 mg Tablet 50 mg PO BEDTIME PRN (Reason: Sleep) RF: 0 metoprolol succinate 50 mg Tablet Extended Release 24 Hr 50 mg PO DAILY RF: 0 omeprazole 20 mg Capsule,Delayed Release(Dr/Ec) 20 mg PO DAILY RF: 0 lisinopril 5 mg Tablet 5 mg PO DAILY RF: 0 albuterol sulfate [ProAir HFA] 90 mcg/actuation Hfa Aerosol Inhaler 2 puff INHALATION Q4-6H PRN (Reason: COUGH/WHEEZE) RF: 0 atorvastatin 20 mg tablet 20 mg PO DAILY RF: 0 clonazepam 1 mg tablet 0.5 tab PO DAILY PRN (Reason: anxiety) RF: 0 clonazepam 1 mg tablet 0.5 tab PO BID RF: 0 levothyroxine 75 mcg tablet 75 mcg PO DAILY RF: 0 loratadine 10 mg tablet 10 mg PO DAILY RF: 0 metformin 1,000 mg tablet 1,000 mg PO BID RF: 0 warfarin 5 mg tablet 10 mg PO DIRECTED RF: 0 acetaminophen [Tylenol Extra Strength] 500 mg tablet 500 mg PO Q6H PRN (Reason: pain or fever) Qty: 20 RF: 0 cyclobenzaprine 5 mg tablet 5 mg PO Q8H PRN (Reason: pain (scale score 7-10)) 5 Days Qty: 14 RF: 0 lidocaine [Lidoderm] 5 % adhesive patch,medicated 1 patch topical DAILY MDD remove after 12 hours PRN (Reason: pain) Qty: 30 RF: 0 sertraline 100 mg tablet 100 mg PO RF: 0 (DME) FreeStyle [place] 14 Day Sensor Kit See Rx Instructions ea topical .MEDSUPPLY Qty: 1 RF: 0 (DME) FreeStyle Lite Strips Strip See Rx Instructions strip .ROUTE .MEDSUPPLY Qty: 10 RF: 0 insulin lispro [Humalog KwikPen Insulin] 100 unit/mL insulin pen See Rx Instructions subcut TID 30 Days Qty: 30 RF: 3
[2020-05-15] MEDS: Metoclopramide HCl 10 MG TABLET PO (05:47)
[2020-05-15] MEDS: Acetaminophen 325 MG TABLET 975 MG PO (05:47)
[2020-05-15] MEDS: diphenhydrAMINE HCL 25 MG TABLET 50 MG PO (05:47)
[2020-05-15 06:17] VITALS: BP 116/61; PULSE 92; RESP 20; O2SAT 94
== END 2020-05-15 09:19 | disposition home or self-care (01) ==
PROVIDERS: Emergency Provider Emergency Medicine Emergency Medical Services; PCP Internal Medicine
DX: G44.309 Post-traumatic headache, unspecified, not intractable (principal); F07.81 Postconcussional syndrome; E11.9 Type 2 diabetes mellitus without complications; I11.0 Hypertensive heart disease with heart failure; I50.9 Heart failure, unspecified; Z86.711 Personal history of pulmonary embolism
CPT/HCPCS: 70450; 99284; Q0163

== ENCOUNTER → 2020-05-29 11:07 | Outpatient (BNVA) | payer OTHER, SELFPAY | PROVIDERS: PCP Internal Medicine; Visit Provider Nurse Practitioner Gerontology ==

== ENCOUNTER → 2020-06-20 14:22 | Outpatient (BNVA) | payer OTHER, SELFPAY | PROVIDERS: PCP Internal Medicine; Visit Provider Nurse Practitioner Gerontology | DX: E11.65 Type 2 diabetes mellitus with hyperglycemia (principal); E78.5 Hyperlipidemia, unspecified; I10 Essential (primary) hypertension; E66.9 Obesity, unspecified; Z68.43 Body mass index [BMI] 50.0-59.9, adult | CPT/HCPCS: 82947; 99212 ==

== ENCOUNTER 2020-07-14 19:48 | Emergency (ER) | payer OTHER, SELFPAY ==
--- NOTE | ~2020-07-14 | XR_ITS ---
EXAMINATION: XR CHEST CLINICAL INFORMATION: Shortness of breath/CHF COMPARISON: 01/12/2020 TECHNIQUE: Frontal view of the chest was obtained. FINDINGS: Compared with the prior study, the lungs are hypoinflated. The heart is enlarged. Patient status post median sternotomy. In addition, there is upper redistribution zone redistribution and blurring of pulmonary vasculature consistent with CHF with mild interstitial edema. Small bilateral pleural effusions may be present. XR/XR chest 1V IMPRESSION: Cardiomegaly with mild CHF
[2020-07-14 19:57] VITALS: BP 127/75; BP 128/76; PULSE 90; PULSE 92; RESP 20; TEMP 37; O2SAT 96; O2SAT 97; BMI 57.9
[2020-07-14 20:31] LABS: Glucose Urine UA 100 MG/DL (NEG); Leukocyte Esterase Urine NEG (NEG); Nitrite Urine NEG (NEG); Specific Gravity - Urine >= 1.030 (1.005-1.025); Urine Blood TRACE (NEG); Urine Ketones NEG (NEG); Urine Protein 2+ MG/DL (NEG-TRACE)
[2020-07-14 20:32] LABS: Appearance Urine HAZY; Color Urine YELLOW
[2020-07-14 20:40] LABS: Bacteria Urine TRACE /LPF; Squamous Epithelial Cell Urine 3+ /LPF; WBC Urine 0-2 /HPF (0-4)
--- NOTE | 2020-07-14 21:15 | ED.SOB ---
HPI - SOB/Dyspnea General Chief Complaint: Dyspnea Stated Complaint: sob Time Seen by Provider: 07/14/20 20:31 Source: patient Mode of arrival: ambulatory Limitations: no limitations History of Present Illness HPI Narrative: Patient 45 years old with history of hypertension hyperlipidemia diabetes hypothyroidism DVT PE asthma PTSD obesity cardiothoracic removal of PE in 2013 with sleep apnea on oxygen and CPAP machine on Coumadin comes here for increased swelling of the leg and wrist for last few days with increased shortness of breath, patient is on Lasix 20 mg daily and been here frequently for similar situation in the past. Patient denies any chest pain no fever no cough no abdominal distension MD elicited complaint: shortness of breath Related Data Home Medications Medication Instructions Recorded Confirmed albuterol sulfate 2.5 mg INHALATION QID PRN 12/26/19 06/20/20 albuterol sulfate [ProAir HFA] 2 puff INHALATION Q4-6H PRN 12/26/19 06/20/20 epinephrine [EpiPen 2-Mykel] 0.3 mg IM NEEDED PRN 12/26/19 06/20/20 lisinopril 5 mg PO DAILY 12/26/19 06/20/20 medroxyprogesterone [Provera] 20 mg PO DAILY 12/26/19 06/20/20 metoprolol succinate 50 mg PO DAILY 12/26/19 06/20/20 omeprazole 20 mg PO DAILY 12/26/19 06/20/20 trazodone 50 mg PO BEDTIME PRN 12/26/19 06/20/20 atorvastatin 20 mg PO DAILY 04/07/20 06/20/20 clonazepam 0.5 tab PO DAILY PRN 04/07/20 06/20/20 levothyroxine 75 mcg PO DAILY 04/07/20 06/20/20 loratadine 10 mg PO DAILY 04/07/20 06/20/20 metformin 1,000 mg PO BID 04/07/20 06/20/20 warfarin 10 mg PO DIRECTED 04/07/20 06/20/20 blood sugar diagnostic #10 ea 05/06/20 06/20/20 flash glucose sensor #1 ea 05/06/20 06/20/20 sertraline 100 mg tablet 100 mg PO tab 05/06/20 06/20/20 Previous Rx's Medication Instructions Recorded dulaglutide 1.5 mg/0.5 mL 1.5 mg SUBCUT QWEEK #2 ml 04/04/20 subcutaneous pen injector acetaminophen [Tylenol Extra 500 mg PO Q6H PRN #20 tab 05/06/20 Strength] cyclobenzaprine 5 mg PO Q8H PRN 5 Days #14 tab 05/06/20 insulin lispro 100 unit/mL See Rx Instructions SUBCUT TID 30 05/06/20 subcutaneous pen Days #30 ml lidocaine [Lidoderm] 1 patch TOPICAL DAILY PRN #30 ea 05/06/20 MDD remove after 12 hours metoclopramide HCl [Reglan] 10 mg PO Q6H PRN #14 tab 05/15/20 insulin glargine U-300 conc 300 45 unit SUBCUT BEDTIME 30 Days #6 06/20/20 unit/mL (3 mL) subcutaneous pen ml furosemide [Lasix] 20 mg PO QAM #30 tab 07/14/20 Allergies Allergy/AdvReac Type Severity Reaction Status Date / Time Penicillins [PENICILLINS] Allergy Intermediate HIVES Verified 07/14/20 20:17 egg [Egg] Allergy Mild SWELLING Verified 07/14/20 20:17 aspirin Allergy Unknown Unknown Verified 07/14/20 20:17 bee pollen [BEE STINGS] Allergy Unknown UNKNOWN Verified 07/14/20 20:17 lactose [LACTOSE] Allergy Unknown UNKNOWN Verified 07/14/20 20:17 latex [LATEX] Allergy Unknown HIVES Verified 07/14/20 20:17 oxycodone Allergy Unknown Unknown Verified 07/14/20 20:17 peanut [PEANUT] Allergy Unknown UNKNOWN Verified 07/14/20 20:17 penicillin V Allergy Unknown Unknown Verified 07/14/20 20:17 eggs,bees,latex,peanuts Allergy Unknown Unknown Uncoded 07/14/20 20:17 medical tape Allergy Unknown Unknown Uncoded 07/14/20 20:17 TAPE,PLASTIC Allergy Unknown RASH Uncoded 07/14/20 20:17 Review of Systems Review of Systems: Constitutional : No Weight loss, No Fever, No Chills ENT/Mouth : No sore throat, No Rhinorrhea Eyes: No Eye Pain, No Swelling Cardiovascular : No Chest Pain, no palpitations Respiratory : No Cough, No Sputum, + shortness of breath Gastrointestinal : no Nausea, No Vomiting, No Diarrhea, No abdominal Pain, no black stools Genitourinary : No Dysuria, No Urinary Frequency Musculoskeletal : No joint pain, No Myalgias, No Joint Swelling Skin : No Skin Lesions, No rash Neuro : No Weakness, No Numbness, No Dizziness, No Headache Psych : No Anxiety/Panic, No Depression Heme/Lymph: No Bruising, No Lymphadenopathy Endocrine : No Polyuria, No Polydipsia All other systems reviewed and are negative [facility] Past Medical History Medical History Anxiety Asthma BMI 50.0-59.9, adult Cardiomyopathy CHF (congestive heart failure) Depression Diabetes mellitus, type 2 Diabetes type 2, uncontrolled DVT (deep vein thrombosis) in Essential hypertension Gallstones Hyperlipidemia LDL goal <70 Hypertension Hypothyroidism Irritable bowel Mood disorder ROGERIO (obstructive sleep apnea) Pancreatitis PTSD (post-traumatic stress disorder) Pulmonary embolism Surgical History History of dental surgery History of open heart surgery Hx of hernia repair Hx of removal of cyst Family History Family History Paternal Grandmother Diabetes Social History Social History Household Members: None Housing: Apartment Alcohol intake: never Smoking Status: Never smoker Use of substances other than those prescribed or required for medical reasons: No Advance Directives: No Advance Directives Information Provided: Yes service: No Sexual orientation: Lesbian/Good/Homosexual Physical Exam Vital Signs: Vital Signs: Last Vital Signs Temp 98.6 F 07/14/20 19:57 Pulse 92 07/14/20 22:00 Resp 18 07/14/20 22:00 BP 136/77 07/14/20 22:00 Pulse Ox 96 07/14/20 22:00 Body Mass Index 57.9 Const: General: comfortable and in distress mild Nutritional Appearance: obese Orientation/consciousness: patient oriented x3 HENMT: Head: Yes normocephalic and Yes atraumatic Ears: hearing grossly normal bilaterally Mouth: Normal oral and palatal mucosa present Teeth and gingiva: dentition normal Eyes: General: appearance normal, both eyes and all related structures Conjunctivae: conjunctivae normal Sclerae: sclerae normal Pupils: Equal, round and reactive pupils present Neck: Neck: Yes normal visual inspection, Yes full ROM, Yes no lymphadenopathy and Yes no JVD Chest: Chest palpation & inspection: normal palpation of entire chest wall Resp: Effort & Inspection: normal respiratory effort Auscultation: clear to auscultation bilaterally, no crackles, no rales, no rhonchi and no wheezes Cardio: Jugular venous distension: no JVD Palpation: normal PMI Rate: regular rate Rhythm: regular rhythm Heart sounds: S1 normal heart sound present and S2 normal heart sound present Peripheral pulses: Peripheral pulses 2+ throughout GI: Inspection: Yes normal to inspection Palpation (GI): Soft to palpation and nontender Auscultation: normal bowel sounds : General: Yes no CVA tenderness Back/Spine/Pelvis: Back: no CVA tenderness Thoracic/Lumbar Spine: thoracic and lumbar spine normal to inspection Skin: General skin exam: no rashes or lesions noted Neuro: General: patient oriented x3 and no focal motor deficits Cranial nerves: Yes Equal, round and reactive pupils present Extrem: General: Yes normal to inspection, Yes full ROM and Yes pedal edema (2+ pitting pedal edema) Psych: Appearance: grossly normal Mental Status: mental status grossly normal Affect: normal affect Attitude: cooperative Thought process: Normal thought process present Thought content: Normal thought content present Insight: Good insight present (Psych) Judgement: Good judgement present (Psych) MDM - SOB/Dyspnea MDM Narrative Medical decision making narrative: Patient with History of PE with a right-sided diastolic heart failure. Chest x-ray showed fluid congestion but BNP is normal patient does have peripheral edema patient taking Lasix 20 mg as needed will advise her to take on daily basis for now till get better Differential Diagnosis Differential diagnosis: Likely congestive heart failure Medical Records Attestation: I reviewed the patient's medical records. Lab Data Attestation: I reviewed the patient's lab results. Result diagrams: 07/14/20 22:19 07/14/20 22:19 Labs: Lab Results 07/14/20 07/14/20 07/14/20 Range/Units 20:20 22:19 22:19 WBC 9.5 (4.8-10.8) X10*3/uL RBC 4.73 (4.20-5.50) X10*6/uL Hgb 11.6 L (12.0-16.0) g/dl Hct 38.7 (37-47) % MCV 81.8 (80-98) fL MCH 24.5 L (27.0-33.0) pg MCHC 30.0 L (31.0-35.0) g/dl RDW 19.6 H (11.0-16.0) % Plt Count 291 (160-400) X10*3/uL MPV 9.9 (9.4-12.3) fL Immature Gran % (Auto) 0.3 (0.0-0.4) % Neut % (Auto) 63.3 (45-73) % Lymph % (Auto) 27.2 (20-40) % [place] % (Auto) 6.5 (2-11) % Eos % (Auto) 2.0 (0-4) % Baso % (Auto) 0.7 (0-2) % Lymph # (Auto) 2.6 (1.2-4.9) X10*3/uL [place] # (Auto) 0.6 (0.1-1.2) X10*3/uL Eos # (Auto) 0.2 (0.0-0.4) X10*3/uL Baso # (Auto) 0.1 (0.0-0.2) X10*3/uL Abs Immat Gran (auto) 0.03 (0.00-0.03) X10*3/uL Absolute Neuts (auto) 6.0 (2.0-8.3) X10*3/uL Absolute Nucleated RBC 0.020 H (0.0-0.012) X10*3/uL Nucleated RBC % (auto) 0.2 (0.0-0.2) /100WBC Sodium 142 (135-145) mmol/L Potassium 4.2 (3.3-5.1) mmol/L Chloride 107 (96-108) mmol/L Carbon Dioxide 26 (22-29) mmol/L Anion Gap 13 (12-20) BUN 7 L (9-16) mg/dL Creatinine 0.83 (0.5-1.4) mg/dL Estim Creat Clear Calc 139.0 Estimated GFR > 60 Random Glucose 191 H D (60-115) mg/dL Calcium 8.8 (8.4-10.2) mg/dL Total Bilirubin 0.7 (0.0-1.0) mg/dL AST 16 (5-31) U/L ALT 28 (0-31) U/L Alkaline Phosphatase 78 (39-117) U/L B-Natriuretic Peptide (<100) pg/mL Total Protein 6.8 (6.5-8.0) g/dL Albumin 3.8 (3.5-5.0) g/dL Urine Color YELLOW Urine Appearance HAZY Urine pH 6.0 (5.0-8.0) Ur Specific [place] >= 1.030 H (1.005-1.025) Urine Protein 2+ H (NEG-TRACE) MG/DL Urine Glucose (UA) 100 H (NEG) MG/DL Urine Ketones NEG (NEG) MG/DL Urine Blood TRACE (NEG) Urine Nitrite NEG (NEG) Ur Leukocyte Esterase NEG (NEG) Urine RBC 1-4 (0) /HPF Urine WBC 0-2 (0-4) /HPF Ur Squamous Epith Cells 3+ /LPF Urine Bacteria TRACE /LPF 07/14/ Range/Units 22:19 WBC (4.8-10.8) X10*3/uL RBC (4.20-5.50) X10*6/uL Hgb (12.0-16.0) g/dl Hct (37-47) % MCV (80-98) fL MCH (27.0-33.0) pg MCHC (31.0-35.0) g/dl RDW (11.0-16.0) % Plt Count (160-400) X10*3/uL MPV (9.4-12.3) fL Immature Gran % (Auto) (0.0-0.4) % Neut % (Auto) (45-73) % Lymph % (Auto) (20-40) % [place] % (Auto) (2-11) % Eos % (Auto) (0-4) % Baso % (Auto) (0-2) % Lymph # (Auto) (1.2-4.9) X10*3/uL [place] # (Auto) (0.1-1.2) X10*3/uL Eos # (Auto) (0.0-0.4) X10*3/uL Baso # (Auto) (0.0-0.2) X10*3/uL Abs Immat Gran (auto) (0.00-0.03) X10*3/uL Absolute Neuts (auto) (2.0-8.3) X10*3/uL Absolute Nucleated RBC (0.0-0.012) X10*3/uL Nucleated RBC % (auto) (0.0-0.2) /100WBC Sodium (135-145) mmol/L Potassium (3.3-5.1) mmol/L Chloride (96-108) mmol/L Carbon Dioxide (22-29) mmol/L Anion Gap (12-20) BUN (9-16) mg/dL Creatinine (0.5-1.4) mg/dL Estim Creat Clear Calc Estimated GFR Random Glucose (60-115) mg/dL Calcium (8.4-10.2) mg/dL Total Bilirubin (0.0-1.0) mg/dL AST (5-31) U/L ALT (0-31) U/L Alkaline Phosphatase (39-117) U/L B-Natriuretic Peptide 96 (<100) pg/mL Total Protein (6.5-8.0) g/dL Albumin (3.5-5.0) g/dL Urine Color Urine Appearance Urine pH (5.0-8.0) Ur Specific [place] (1.005-1.025) Urine Protein (NEG-TRACE) MG/DL Urine Glucose (UA) (NEG) MG/DL Urine Ketones (NEG) MG/DL Urine Blood (NEG) Urine Nitrite (NEG) Ur Leukocyte Esterase (NEG) Urine RBC (0) /HPF Urine WBC (0-4) /HPF Ur Squamous Epith Cells /LPF Urine Bacteria /LPF Discharge Plan Discharge Clinical Impression: Congestive heart failure with LV diastolic dysfunction, NYHA class 1 Patient Disposition: Home, Self-Care Instructions: Left-sided and Right-sided Heart Failure (ED) Additional Instructions: Your leg swelling is likely from slight right-sided heart failure Continue take Lasix 20 mg daily for increased swelling and follow with PCP/director appointment Prescriptions: New furosemide [Lasix] 20 mg tablet 20 mg PO QAM Qty: 30 RF: 0 No Action Trulicity 1.5 mg/0.5 mL pen injector 1.5 mg subcut QWEEK Qty: 2 RF: 3 albuterol sulfate 2.5 mg /3 mL (0.083 %) Solution For Nebulization 2.5 mg INHALATION QID PRN (Reason: Allergic Reaction) RF: 0 epinephrine [EpiPen 2-Mykel] 0.3 mg/0.3 mL Auto-Injector 0.3 mg IM NEEDED PRN (Reason: SEVERE ALLERGIC REACTION) RF: 0 medroxyprogesterone [Provera] 10 mg Tablet 20 mg PO DAILY RF: 0 trazodone 50 mg Tablet 50 mg PO BEDTIME PRN (Reason: Sleep) RF: 0 metoprolol succinate 50 mg Tablet Extended Release 24 Hr 50 mg PO DAILY RF: 0 omeprazole 20 mg Capsule,Delayed Release(Dr/Ec) 20 mg PO DAILY RF: 0 lisinopril 5 mg Tablet 5 mg PO DAILY RF: 0 albuterol sulfate [ProAir HFA] 90 mcg/actuation Hfa Aerosol Inhaler 2 puff INHALATION Q4-6H PRN (Reason: COUGH/WHEEZE) RF: 0 atorvastatin 20 mg tablet 20 mg PO DAILY RF: 0 clonazepam 1 mg tablet 0.5 tab PO DAILY PRN (Reason: anxiety) RF: 0 levothyroxine 75 mcg tablet 75 mcg PO DAILY RF: 0 loratadine 10 mg tablet 10 mg PO DAILY RF: 0 metformin 1,000 mg tablet 1,000 mg PO BID RF: 0 warfarin 5 mg tablet 10 mg PO DIRECTED RF: 0 acetaminophen [Tylenol Extra Strength] 500 mg tablet 500 mg PO Q6H PRN (Reason: pain or fever) Qty: 20 RF: 0 cyclobenzaprine 5 mg tablet 5 mg PO Q8H PRN (Reason: pain (scale score 7-10)) 5 Days Qty: 14 RF: 0 lidocaine [Lidoderm] 5 % adhesive patch,medicated 1 patch topical DAILY MDD remove after 12 hours PRN (Reason: pain) Qty: 30 RF: 0 metoclopramide HCl [Reglan] 10 mg tablet 10 mg PO Q6H PRN (Reason: nausea and vomiting) Qty: 14 RF: 0 sertraline 100 mg tablet 100 mg PO RF: 0 (DME) FreeStyle [place] 14 Day Sensor Kit See Rx Instructions ea topical .MEDSUPPLY Qty: 1 RF: 0 (DME) FreeStyle Lite Strips Strip See Rx Instructions strip .ROUTE .MEDSUPPLY Qty: 10 RF: 0 insulin lispro [Humalog KwikPen Insulin] 100 unit/mL insulin pen See Rx Instructions subcut TID 30 Days Qty: 30 RF: 3 Toujeo Max U-300 SoloStar 300 unit/mL (3 mL) insulin pen 45 unit subcut BEDTIME 30 Days Qty: 6 RF: 3
[2020-07-14 22:00] VITALS: BP 136/77; PULSE 92; RESP 18; O2SAT 96
[2020-07-14 22:26] LABS: MANUAL DIFF FLAG NO
[2020-07-14 22:27] LABS: Basophils Absolute Auto 0.1 X10*3/uL (0.0-0.2); Basophils Percent Auto 0.7 % (0-2); Eosinophils Absolute Auto 0.2 X10*3/uL (0.0-0.4); Hematocrit 38.7 % (37-47); Hemoglobin 11.6 g/dl (12.0-16.0); Imm Gran Abs Auto 0.03 X10*3/uL (0.00-0.03); Imm Gran Pct Auto 0.3 % (0.0-0.4); Lymphocytes Absolute Auto 2.6 X10*3/uL (1.2-4.9); Lymphocytes Percent Auto 27.2 % (20-40); Mean Corpuscular Hemoglobin 24.5 pg (27.0-33.0); Mean Corpuscular Volume 81.8 fL (80-98); Mean Platelet Volume 9.9 fL (9.4-12.3); Monocytes Absolute Auto 0.6 X10*3/uL (0.1-1.2); Monocytes Percent Auto 6.5 % (2-11); NRBC Pct Auto 0.2 /100WBC (0.0-0.2); Neutrophils Percent Auto 63.3 % (45-73); Platelet Count 291 X10*3/uL (160-400); Red Blood Count 4.73 X10*6/uL (4.20-5.50); Red Cell Distribution Width 19.6 % (11.0-16.0); White Blood Count 9.5 X10*3/uL (4.8-10.8)
[2020-07-14 22:54] LABS: Alanine Aminotransferase 28 U/L (0-31); Albumin Level 3.8 g/dL (3.5-5.0); Alkaline Phosphatase 78 U/L (39-117); Anion Gap 13 (12-20); Aspartate Amino Transferase 16 U/L (5-31); Bilirubin Total 0.7 mg/dL (0.0-1.0); Blood Urea Nitrogen 7 mg/dL (9-16); Calcium 8.8 mg/dL (8.4-10.2); Carbon Dioxide 26 mmol/L (22-29); Chloride 107 mmol/L (96-108); Estimated Glomerular Filt Rate > 60; Glucose Random 191 mg/dL (60-115); Potassium 4.2 mmol/L (3.3-5.1); Sodium 142 mmol/L (135-145); Total Protein 6.8 g/dL (6.5-8.0)
[2020-07-14 23:02] LABS: B Type Natriuretic Peptide 96 pg/mL (<100)
[2020-07-14] MEDS: Furosemide 40 MG TABLET PO (23:08)
[2020-07-14 23:22] LABS: INTERNATIONAL NORM RATIO 1.8 (0.9-1.1); Prothrombin Time 21.2 SEC (10.8-13.0)
[2020-07-14 23:32] LABS: Partial Thromboplastin Time 41.6 SEC (24.1-38.0)
== END 2020-07-15 00:10 | disposition home or self-care (01) ==
PROVIDERS: Emergency Provider Internal Medicine; PCP Internal Medicine
DX: I11.0 Hypertensive heart disease with heart failure (principal); I50.30 Unspecified diastolic (congestive) heart failure; M79.89 Other specified soft tissue disorders; E78.5 Hyperlipidemia, unspecified; E11.9 Type 2 diabetes mellitus without complications; Z86.718 Personal history of other venous thrombosis and embolism; Z86.711 Personal history of pulmonary embolism; F43.10 Post-traumatic stress disorder, unspecified; Z79.01 Long term (current) use of anticoagulants; Z79.899 Other long term (current) drug therapy
CPT/HCPCS: 36415; 71045; 80053; 81001; 83880; 85025; 85610; 85730; 99283; 99284

== ENCOUNTER → 2020-07-22 11:23 | Outpatient (BNVA) | payer OTHER, SELFPAY | PROVIDERS: PCP Internal Medicine; Visit Provider Nurse Practitioner Gerontology | DX: E11.65 Type 2 diabetes mellitus with hyperglycemia (principal); E78.5 Hyperlipidemia, unspecified; I10 Essential (primary) hypertension; E66.9 Obesity, unspecified; Z68.43 Body mass index [BMI] 50.0-59.9, adult | CPT/HCPCS: 82947; 99212 ==

== ENCOUNTER 2020-08-10 11:27 | Emergency (ER) | payer OTHER, SELFPAY ==
[2020-08-10 11:30] VITALS: BP 104/81; PULSE 104; RESP 18; TEMP 37.2; O2SAT 94; BMI 53.2
--- NOTE | 2020-08-10 11:35 | ED_ITS ---
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 She reports a history of mouth tingling with kiwi in the past but that was the extent of her reaction. After she ate it this morning she developed lip and tongue swelling, as well as SOB and anxiety. 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 On EMS arrival her tongue was noted to be swollen and she had bibasilar wheezing. She was given IM Epinepherine, IM Benadryl 50 mg, as well as a duoneb and albuterol neb. Symptoms were improved by the time she arrived to the ER. She states she still does not feel back to baseline but it is much better. She is speaking in full sentences and handling her secretions normally. MD complaint: allergic reaction Onset (ago): minute(s) (40) Exposure: food Known history of allergy to: kiwi Symptoms: lip swelling, difficulty breathing and tongue swelling Severity: moderate Treatment prior to arrival: benadryl, epinephrine, bronchodilator and oxygen Previous Allergic Reaction History: prior ED visit(s) Related Data Home Medications Medication Instructions Recorded Confirmed albuterol sulfate 2.5 mg INHALATION QID PRN 12/26/19 07/22/20 albuterol sulfate [ProAir HFA] 2 puff INHALATION Q4-6H PRN 12/26/19 07/22/20 epinephrine [EpiPen 2-Mykel] 0.3 mg IM NEEDED PRN 12/26/19 07/22/20 lisinopril 5 mg PO DAILY 12/26/19 07/22/20 medroxyprogesterone [Provera] 20 mg PO DAILY 12/26/19 07/22/20 metoprolol succinate 50 mg PO DAILY 12/26/19 07/22/20 omeprazole 20 mg PO DAILY 12/26/19 07/22/20 trazodone 50 mg PO BEDTIME PRN 12/26/19 07/22/20 atorvastatin 20 mg PO DAILY 04/07/20 07/22/20 clonazepam 0.5 tab PO DAILY PRN 04/07/20 07/22/20 levothyroxine 75 mcg PO DAILY 04/07/20 07/22/20 loratadine 10 mg PO DAILY 04/07/20 07/22/20 metformin 1,000 mg PO BID 04/07/20 07/22/20 warfarin 10 mg PO DIRECTED 04/07/20 07/22/20 blood sugar diagnostic #10 ea 05/06/20 07/22/20 flash glucose sensor #1 ea 05/06/20 07/22/20 sertraline 100 mg tablet 100 mg PO tab 05/06/20 07/22/20 Previous Rx's Medication Instructions Recorded acetaminophen [Tylenol Extra 500 mg PO Q6H PRN #20 tab 05/06/20 Strength] cyclobenzaprine 5 mg PO Q8H PRN 5 Days #14 tab 05/06/20 lidocaine [Lidoderm] 1 patch TOPICAL DAILY PRN #30 ea 05/06/20 MDD remove after 12 hours metoclopramide HCl [Reglan] 10 mg PO Q6H PRN #14 tab 05/15/20 furosemide [Lasix] 20 mg PO QAM #30 tab 07/14/20 dulaglutide 3 mg/0.5 mL 3 mg SUBCUT QWEEK 28 Days #2 ml 07/22/20 subcutaneous pen injector insulin glargine U-300 conc 300 45 unit SUBCUT BEDTIME 30 Days #6 07/22/20 unit/mL (3 mL) subcutaneous pen ml insulin lispro 100 unit/mL See Rx Instructions SUBCUT TID 30 07/22/20 subcutaneous pen Days #15 ml Allergies Allergy/AdvReac Type Severity Reaction Status Date / Time Penicillins [PENICILLINS] Allergy Intermediate HIVES Verified 07/22/20 11:46 egg [Egg] Allergy Mild SWELLING Verified 07/22/20 11:46 aspirin Allergy Unknown Unknown Verified 07/22/20 11:46 bee pollen [BEE STINGS] Allergy Unknown UNKNOWN Verified 07/22/20 11:46 lactose [LACTOSE] Allergy Unknown UNKNOWN Verified 07/22/20 11:46 latex [LATEX] Allergy Unknown HIVES Verified 07/22/20 11:46 oxycodone Allergy Unknown Unknown Verified 07/22/20 11:46 peanut [PEANUT] Allergy Unknown UNKNOWN Verified 07/22/20 11:46 penicillin V Allergy Unknown Unknown Verified 07/22/20 11:46 eggs,bees,latex,peanuts Allergy Unknown Unknown Uncoded 07/22/20 11:46 medical tape Allergy Unknown Unknown Uncoded 07/22/20 11:46 TAPE,PLASTIC Allergy Unknown RASH Uncoded 07/22/20 11:46 Review of Systems Review of Systems: Constitutional: No Fever, No Chills ENT/Mouth: + sore throat, No Rhinorrhea, + Swallowing Difficulty Eyes: No Eye Pain, No Swelling, No Redness Cardiovascular: No Chest Pain, + SOB, No Orthopnea, No Edema Respiratory: No Cough, No Sputum, + Wheezing, No dyspnea Gastrointestinal: No Nausea, No Vomiting, No Diarrhea, No abdominal Pain Genitourinary: No Dysuria, No Urinary Frequency, No Hematuria Musculoskeletal: No joint pain, No Myalgias Skin: No Skin Lesions, No rash Neuro: No Weakness, No Numbness, No Dizziness, No Headache Psych: + Anxiety/Panic, No Depression Heme/Lymph: No Lymphadenopathy PMFSH Past Medical History Medical History Anxiety Asthma BMI 50.0-59.9, adult Cardiomyopathy CHF (congestive heart failure) Depression Diabetes mellitus, type 2 Diabetes type 2, uncontrolled DVT (deep vein thrombosis) in Essential hypertension Gallstones Hyperlipidemia LDL goal <70 Hypertension Hypothyroidism Irritable bowel Mood disorder ROGERIO (obstructive sleep apnea) Pancreatitis PTSD (post-traumatic stress disorder) Pulmonary embolism Surgical History History of dental surgery History of open heart surgery Hx of hernia repair Hx of removal of cyst Family History Family History Paternal Grandmother Diabetes Social History Social History Household Members: None Housing: Apartment Alcohol intake: never Smoking Status: Never smoker Use of substances other than those prescribed or required for medical reasons: No Advance Directives: No Advance Directives Information Provided: No Patient : No service: No Sexual orientation: Lesbian/Good/Homosexual Physical Exam Vital Signs: Vital Signs: Last Vital Signs Temp 99.0 F 08/10/20 11:30 Pulse 104 H 08/10/20 11:30 Resp 18 08/10/20 11:30 BP 104/81 08/10/20 11:30 Pulse Ox 96 08/10/20 13:02 Oxygen Flow Rate 3 08/10/20 11:30 Body Mass Index 53.2 Appearance: Alert middle aged female sitting on the edge of the bed, nasal cannula in place. Oriented X3. No acute distress. Eyes: Pupils equal, round and reactive to light. ENT: mild lower lip edema, tongue is normal in size, posterior oropharynx is normal, uvula midline. Neck: Normal inspection. Neck supple. CVS: Normal heart rate and rhythm. Pulses normal. Respiratory: No respiratory distress. Breath sounds diminished at the bases. Speaking in complete sentences Abdomen: Moribdly obese, Soft and nontender. +BS x4 Skin: Skin warm and dry. Normal skin color. Normal skin turgor. No rashes. Extremities: Trace lower extremity edema. Neuro: Oriented X 3. Non-focal. Course Course Course Narrative: 45 y/o female with mutliple medical problems and history of anaphylaxis to bee stings presenting with acute allergic reaction to kiwi including tongue and lip swelling as well as wheezing. Much improvement after IM Epi, Benadryl and nebs. Difficult IV stick, oral prednisone ordered for now. Comfortable with holding off on IV access given her significant improvement. Can redose IM Epi if needed. Will frequently reassess. Reevaluation(s) Reevaluation #1: Patient was monitored in the ER for 3 hours. Her symptoms continued to improve and she is back to baseline. No residual swelling or sensation of swelling. She is eating and drinking normally. She is stable for discharge. She has an EpiPen at home and was counseled on use. She will f/u with her doctor. Stable for d/c. Discharge Plan Discharge Clinical Impression: Allergic reaction Qualifiers: Encounter type: initial encounter Qualified Code(s): T78.40XA - Allergy, unspecified, initial encounter Patient Disposition: Home, Self-Care Instructions: Food Allergy (ED) Additional Instructions: You were treated for severe allergic reaction with improvement in symptoms. Recommend taking another dose of Benadryl later today, 50 mg. If you have recurrent swelling in your throat or mouth, use your EpiPen and call 911. Follow up with your doctor this week. DO NOT EAT KIWI - ADD IT TO YOUR ALLERGY LIST. Prescriptions: No Action albuterol sulfate 2.5 mg /3 mL (0.083 %) Solution For Nebulization 2.5 mg INHALATION QID PRN (Reason: Allergic Reaction) RF: 0 epinephrine [EpiPen 2-Mykel] 0.3 mg/0.3 mL Auto-Injector 0.3 mg IM NEEDED PRN (Reason: SEVERE ALLERGIC REACTION) RF: 0 medroxyprogesterone [Provera] 10 mg Tablet 20 mg PO DAILY RF: 0 trazodone 50 mg Tablet 50 mg PO BEDTIME PRN (Reason: Sleep) RF: 0 metoprolol succinate 50 mg Tablet Extended Release 24 Hr 50 mg PO DAILY RF: 0 omeprazole 20 mg Capsule,Delayed Release(Dr/Ec) 20 mg PO DAILY RF: 0 lisinopril 5 mg Tablet 5 mg PO DAILY RF: 0 albuterol sulfate [ProAir HFA] 90 mcg/actuation Hfa Aerosol Inhaler 2 puff INHALATION Q4-6H PRN (Reason: COUGH/WHEEZE) RF: 0 atorvastatin 20 mg tablet 20 mg PO DAILY RF: 0 clonazepam 1 mg tablet 0.5 tab PO DAILY PRN (Reason: anxiety) RF: 0 levothyroxine 75 mcg tablet 75 mcg PO DAILY RF: 0 loratadine 10 mg tablet 10 mg PO DAILY RF: 0 metformin 1,000 mg tablet 1,000 mg PO BID RF: 0 warfarin 5 mg tablet 10 mg PO DIRECTED RF: 0 acetaminophen [Tylenol Extra Strength] 500 mg tablet 500 mg PO Q6H PRN (Reason: pain or fever) Qty: 20 RF: 0 cyclobenzaprine 5 mg tablet 5 mg PO Q8H PRN (Reason: pain (scale score 7-10)) 5 Days Qty: 14 RF: 0 lidocaine [Lidoderm] 5 % adhesive patch,medicated 1 patch topical DAILY MDD remove after 12 hours PRN (Reason: pain) Qty: 30 RF: 0 metoclopramide HCl [Reglan] 10 mg tablet 10 mg PO Q6H PRN (Reason: nausea and vomiting) Qty: 14 RF: 0 furosemide [Lasix] 20 mg tablet 20 mg PO QAM Qty: 30 RF: 0 sertraline 100 mg tablet 100 mg PO RF: 0 (DME) FreeStyle [place] 14 Day Sensor Kit See Rx Instructions ea topical .MEDSUPPLY Qty: 1 RF: 0 (DME) FreeStyle Lite Strips Strip See Rx Instructions strip .ROUTE .MEDSUPPLY Qty: 10 RF: 0 Toujeo Max U-300 SoloStar 300 unit/mL (3 mL) insulin pen 45 unit subcut BEDTIME 30 Days Qty: 6 RF: 3 insulin lispro [Humalog KwikPen Insulin] 100 unit/mL insulin pen See Rx Instructions subcut TID 30 Days Qty: 15 RF: 3 Trulicity 3 mg/0.5 mL pen injector 3 mg subcut QWEEK 28 Days Qty: 2 RF: 3
[2020-08-10] MEDS: predniSONE 20 MG TABLET 60 MG PO (11:42)
[2020-08-10 13:02] VITALS: O2SAT 96
== END 2020-08-10 15:01 | disposition home or self-care (01) ==
PROVIDERS: Emergency Provider Emergency Medicine; PCP Internal Medicine
DX: L23.9 Allergic contact dermatitis, unspecified cause (principal); Z79.899 Other long term (current) drug therapy
CPT/HCPCS: 99284

== ENCOUNTER 2020-09-01 21:36 | Emergency (ER) | payer OTHER, SELFPAY ==
--- NOTE | ~2020-09-01 | CT_ITS ---
EXAMINATION: CT ABDOMEN AND PELVIS WITH CONTRAST CLINICAL INFORMATION: Left lower quadrant pain COMPARISON: 11/08/2019 TECHNIQUE: Multidetector volumetric images were obtained from the superior aspect of the liver through the pubic symphysis following administration 85 mL of Omnipaque 350 intravenous contrast. Sagittal and coronal reformatted images were obtained on the technologist's workstation. Oral contrast: No This CT examination was performed using dose optimization techniques as appropriate, variously including the following: *Automated exposure control *Adjustment of mA and/or kV according to patient size (this includes techniques or standardized protocols for targeted exams where dose is matched to indication/reason for exam; i.e. extremities or head) *Use of iterative reconstruction technique DLP: 1551 mGy-cm FINDINGS: LUNG BASES: The visualized lung bases demonstrate mild subsegmental atelectasis. LIVER, GALLBLADDER, AND BILIARY TREE: The liver is normal in size, shape, and attenuation. No focal hepatic lesion or biliary ductal dilatation is present. Cholelithiasis is noted. PANCREAS: Unremarkable. SPLEEN: Unremarkable. ADRENAL GLANDS: Unremarkable. KIDNEYS AND URETERS: The kidneys are normal in size, shape, and attenuation. No hydronephrosis, hydroureter, or obstructing calculi seen. No perinephric stranding. BLADDER: Unremarkable. GASTROINTESTINAL TRACT: The small and large bowel are unremarkable. The appendix is unremarkable. No free fluid or free air is seen. ABDOMINAL WALL: No significant hernia is appreciated. LYMPH NODES: Normal. VASCULAR: Unremarkable. PELVIC VISCERA: Unremarkable. OSSEOUS STRUCTURES: Unremarkable. CT/CT abdomen pelvis w con IMPRESSION: No acute findings identified in the abdomen/pelvis. Cholelithiasis.
[2020-09-01 21:50] VITALS: BP 140/70; PULSE 98; O2SAT 98
[2020-09-01 23:01] VITALS: BP 147/95; PULSE 105; RESP 22; TEMP 36.7; O2SAT 95; BMI 53.8
[2020-09-01 23:42] LABS: Basophils Absolute Auto 0.1 X10*3/uL (0.0-0.2); Basophils Percent Auto 0.5 % (0-2); Eosinophils Absolute Auto 0.2 X10*3/uL (0.0-0.4); Eosinophils Percent Auto 1.6 % (0-4); Hematocrit 40.1 % (37-47); Imm Gran Abs Auto 0.05 X10*3/uL (0.00-0.03); Imm Gran Pct Auto 0.5 % (0.0-0.4); Lymphocytes Absolute Auto 2.7 X10*3/uL (1.2-4.9); Lymphocytes Percent Auto 25.2 % (20-40); MANUAL DIFF FLAG NO; Mean Corpuscular HGB Conc 29.9 g/dl (31.0-35.0); Mean Platelet Volume 10.5 fL (9.4-12.3); Monocytes Absolute Auto 0.8 X10*3/uL (0.1-1.2); Monocytes Percent Auto 7.3 % (2-11); NRBC Pct Auto 0.2 /100WBC (0.0-0.2); Neutrophils Absolute Auto 6.9 X10*3/uL (2.0-8.3); Neutrophils Percent Auto 64.9 % (45-73); Platelet Count 326 X10*3/uL (160-400); Red Blood Count 5.01 X10*6/uL (4.20-5.50); Red Cell Distribution Width 18.6 % (11.0-16.0); White Blood Count 10.7 X10*3/uL (4.8-10.8)
--- NOTE | 2020-09-02 00:02 | ED_ITS ---
HPI - Abdominal Pain General Chief Complaint: Abdominal Pain Stated Complaint: abd pain chest pain Time Seen by Provider: 09/01/20 23:52 Source: patient Mode of arrival: EMS History of Present Illness HPI narrative: This is a 45-year-old female with multiple medical comorbidities who presents with onset of multiple after episodes of diarrhea since yesterday as well as decrease in appetite and then developing nausea without vomiting as well as abdominal pain today. Patient denies any urinary pain/burning/frequency and denies any shortness of breath or chest pain at this time. She does have positive surgical history of umbilical hernia repair as a child. Related Data Home Medications Medication Instructions Recorded Confirmed albuterol sulfate 2.5 mg INHALATION QID PRN 12/26/19 07/22/20 albuterol sulfate [ProAir HFA] 2 puff INHALATION Q4-6H PRN 12/26/19 07/22/20 epinephrine [EpiPen 2-Mykel] 0.3 mg IM NEEDED PRN 12/26/19 07/22/20 lisinopril 5 mg PO DAILY 12/26/19 07/22/20 medroxyprogesterone [Provera] 20 mg PO DAILY 12/26/19 07/22/20 metoprolol succinate 50 mg PO DAILY 12/26/19 07/22/20 omeprazole 20 mg PO DAILY 12/26/19 07/22/20 trazodone 50 mg PO BEDTIME PRN 12/26/19 07/22/20 atorvastatin 20 mg PO DAILY 04/07/20 07/22/20 clonazepam 0.5 tab PO DAILY PRN 04/07/20 07/22/20 levothyroxine 75 mcg PO DAILY 04/07/20 07/22/20 loratadine 10 mg PO DAILY 04/07/20 07/22/20 metformin 1,000 mg PO BID 04/07/20 07/22/20 warfarin 10 mg PO DIRECTED 04/07/20 07/22/20 blood sugar diagnostic #10 ea 05/06/20 07/22/20 sertraline 100 mg tablet 100 mg PO tab 05/06/20 07/22/20 Previous Rx's Medication Instructions Recorded acetaminophen [Tylenol Extra 500 mg PO Q6H PRN #20 tab 05/06/20 Strength] cyclobenzaprine 5 mg PO Q8H PRN 5 Days #14 tab 05/06/20 lidocaine [Lidoderm] 1 patch TOPICAL DAILY PRN #30 ea 05/06/20 MDD remove after 12 hours metoclopramide HCl [Reglan] 10 mg PO Q6H PRN #14 tab 05/15/20 furosemide [Lasix] 20 mg PO QAM #30 tab 07/14/20 dulaglutide 3 mg/0.5 mL 3 mg SUBCUT QWEEK 28 Days #2 ml 07/22/20 subcutaneous pen injector insulin glargine U-300 conc 300 45 unit SUBCUT BEDTIME 30 Days #6 07/22/20 unit/mL (3 mL) subcutaneous pen ml insulin lispro 100 unit/mL See Rx Instructions SUBCUT TID 30 07/22/20 subcutaneous pen Days #15 ml flash glucose sensor 1 ea TOPICAL Q2W #2 kit 08/26/20 Allergies Allergy/AdvReac Type Severity Reaction Status Date / Time Penicillins [PENICILLINS] Allergy Intermediate HIVES Verified 07/22/20 11:46 egg [Egg] Allergy Mild SWELLING Verified 07/22/20 11:46 aspirin Allergy Unknown Unknown Verified 07/22/20 11:46 bee pollen [BEE STINGS] Allergy Unknown UNKNOWN Verified 07/22/20 11:46 lactose [LACTOSE] Allergy Unknown UNKNOWN Verified 07/22/20 11:46 latex [LATEX] Allergy Unknown HIVES Verified 07/22/20 11:46 oxycodone Allergy Unknown Unknown Verified 07/22/20 11:46 peanut [PEANUT] Allergy Unknown UNKNOWN Verified 07/22/20 11:46 penicillin V Allergy Unknown Unknown Verified 07/22/20 11:46 eggs,bees,latex,peanuts Allergy Unknown Unknown Uncoded 07/22/20 11:46 medical tape Allergy Unknown Unknown Uncoded 07/22/20 11:46 TAPE,PLASTIC Allergy Unknown RASH Uncoded 07/22/20 11:46 Review of Systems Review of Systems Pertinent positives and negatives as stated in HPI 10 point review of systems is otherwise negative. Physical Exam Vital Signs: Vital Signs: Last Vital Signs Temp 98.5 F 09/02/20 00:52 Pulse 94 09/02/20 02:00 Resp 20 09/02/20 02:00 BP 110/60 09/02/20 02:00 Pulse Ox 95 09/02/20 02:00 Oxygen Flow Rate 2 09/01/20 23:01 Body Mass Index 53.8 VITAL SIGNS: Reviewed. GENERAL: Well developed, well nourished, in no acute distress. HEAD: Normocephalic/atraumatic EYES: PERRLA, EOMI OROPHARYNX: no oral lesions noted, posterior pharynx clear NECK: Supple, no adenopathy LUNGS: Normal breath sounds. No adventitious sounds or accessory muscle use. SpO2<95> on home oxygen CARDIOVASCULAR: Regular rate and rhythm without noted murmurs, no JVD or lower extremity edema. ABDOMEN: Obese, Soft, tenderness in the left lower quadrant and mid abdomen, non-distended with bowel sounds. SKIN: Inspection of the skin reveals no rashes NEUROLOGIC: Alert and oriented x 4. Strength and sensation to light touch were grossly intact x 4. Course Course Course Narrative: This is a 45-year-old female with history and clinical presentation suggestive of possible diverticulitis and less likely appendicitis, SBO, renal colic. Review of all investigations negative for any acute findings and suspect this may been a combination of acid reflux and patient's underlying IBS. All results were discussed with her at bedside and she was discharged home in stable condition. MDM - Abdominal Pain Lab Data Result diagrams: 09/01/20 23:38 09/01/20 23:38 Labs: Lab Results 09/01/20 09/01/20 09/02/20 Range/Units 23:38 23:38 00:37 WBC 10.7 (4.8-10.8) X10*3/uL RBC 5.01 (4.20-5.50) X10*6/uL Hgb 12.0 (12.0-16.0) g/dl Hct 40.1 (37-47) % MCV 80.0 (80-98) fL MCH 24.0 L (27.0-33.0) pg MCHC 29.9 L (31.0-35.0) g/dl RDW 18.6 H (11.0-16.0) % Plt Count 326 (160-400) X10*3/uL MPV 10.5 (9.4-12.3) fL Immature Gran % (Auto) 0.5 H (0.0-0.4) % Neut % (Auto) 64.9 (45-73) % Lymph % (Auto) 25.2 (20-40) % [place] % (Auto) 7.3 (2-11) % Eos % (Auto) 1.6 (0-4) % Baso % (Auto) 0.5 (0-2) % Lymph # (Auto) 2.7 (1.2-4.9) X10*3/uL [place] # (Auto) 0.8 (0.1-1.2) X10*3/uL Eos # (Auto) 0.2 (0.0-0.4) X10*3/uL Baso # (Auto) 0.1 (0.0-0.2) X10*3/uL Abs Immat Gran (auto) 0.05 H (0.00-0.03) X10*3/uL Absolute Neuts (auto) 6.9 (2.0-8.3) X10*3/uL Absolute Nucleated RBC 0.020 H (0.0-0.012) X10*3/uL Nucleated RBC % (auto) 0.2 (0.0-0.2) /100WBC PT (10.8-13.0) SEC INR (0.9-1.1) Sodium 137 (135-145) mmol/L Potassium 4.1 (3.3-5.1) mmol/L Chloride 101 (96-108) mmol/L Carbon Dioxide 27 (22-29) mmol/L Anion Gap 13 (12-20) BUN 14 D (9-16) mg/dL Creatinine 1.02 (0.5-1.4) mg/dL Estim Creat Clear Calc 108.0 Estimated GFR 59 Random Glucose 339 H D (60-115) mg/dL Calcium 9.3 (8.4-10.2) mg/dL Total Bilirubin 0.5 (0.0-1.0) mg/dL Direct Bilirubin < 0.2 (0.0-0.5) mg/dL AST 11 (5-31) U/L ALT 17 (0-31) U/L Alkaline Phosphatase 93 (39-117) U/L Total Protein 6.8 (6.5-8.0) g/dL Albumin 3.8 (3.5-5.0) g/dL Lipase 38 (8-78) U/L Urine Color YELLOW Urine Appearance CLEAR Urine pH 6.0 (5.0-8.0) Ur Specific [place] 1.010 (1.005-1.025) Urine Protein TRACE (NEG-TRACE) MG/DL Urine Glucose (UA) >=1000 H (NEG) MG/DL Urine Ketones NEG (NEG) MG/DL Urine Blood NEG (NEG) Urine Nitrite NEG (NEG) Ur Leukocyte Esterase NEG (NEG) Urine RBC 0 (0) /HPF Urine WBC 0-2 (0-4) /HPF Ur Squamous Epith Cells 3+ /LPF Urine Bacteria 2+ /LPF Urine Yeast 1+ /HPF Urine Test (NEGATIVE) 09/02/20 09/02/20 Range/Units 00:37 00:45 WBC (4.8-10.8) X10*3/uL RBC (4.20-5.50) X10*6/uL Hgb (12.0-16.0) g/dl Hct (37-47) % MCV (80-98) fL MCH (27.0-33.0) pg MCHC (31.0-35.0) g/dl RDW (11.0-16.0) % Plt Count (160-400) X10*3/uL MPV (9.4-12.3) fL Immature Gran % (Auto) (0.0-0.4) % Neut % (Auto) (45-73) % Lymph % (Auto) (20-40) % [place] % (Auto) (2-11) % Eos % (Auto) (0-4) % Baso % (Auto) (0-2) % Lymph # (Auto) (1.2-4.9) X10*3/uL [place] # (Auto) (0.1-1.2) X10*3/uL Eos # (Auto) (0.0-0.4) X10*3/uL Baso # (Auto) (0.0-0.2) X10*3/uL Abs Immat Gran (auto) (0.00-0.03) X10*3/uL Absolute Neuts (auto) (2.0-8.3) X10*3/uL Absolute Nucleated RBC (0.0-0.012) X10*3/uL Nucleated RBC % (auto) (0.0-0.2) /100WBC PT 26.8 H D (10.8-13.0) SEC INR 2.2 H (0.9-1.1) Sodium (135-145) mmol/L Potassium (3.3-5.1) mmol/L Chloride (96-108) mmol/L Carbon Dioxide (22-29) mmol/L Anion Gap (12-20) BUN (9-16) mg/dL Creatinine (0.5-1.4) mg/dL Estim Creat Clear Calc Estimated GFR Random Glucose (60-115) mg/dL Calcium (8.4-10.2) mg/dL Total Bilirubin (0.0-1.0) mg/dL Direct Bilirubin (0.0-0.5) mg/dL AST (5-31) U/L ALT (0-31) U/L Alkaline Phosphatase (39-117) U/L Total Protein (6.5-8.0) g/dL Albumin (3.5-5.0) g/dL Lipase (8-78) U/L Urine Color Urine Appearance Urine pH (5.0-8.0) Ur Specific [place] (1.005-1.025) Urine Protein (NEG-TRACE) MG/DL Urine Glucose (UA) (NEG) MG/DL Urine Ketones (NEG) MG/DL Urine Blood (NEG) Urine Nitrite (NEG) Ur Leukocyte Esterase (NEG) Urine RBC (0) /HPF Urine WBC (0-4) /HPF Ur Squamous Epith Cells /LPF Urine Bacteria /LPF Urine Yeast /HPF Urine Test NEGATIVE (NEGATIVE) Discharge Plan Discharge Clinical Impression: Irritable bowel syndrome, Acid reflux Patient Disposition: Home, Self-Care Instructions: Irritable Bowel Syndrome (ED) Prescriptions: No Action Joey Ryan 14 Day Sensor Kit 1 ea topical Q2W Qty: 2 RF: 11 albuterol sulfate 2.5 mg /3 mL (0.083 %) Solution For Nebulization 2.5 mg INHALATION QID PRN (Reason: Allergic Reaction) RF: 0 epinephrine [EpiPen 2-Mykel] 0.3 mg/0.3 mL Auto-Injector 0.3 mg IM NEEDED PRN (Reason: SEVERE ALLERGIC REACTION) RF: 0 medroxyprogesterone [Provera] 10 mg Tablet 20 mg PO DAILY RF: 0 trazodone 50 mg Tablet 50 mg PO BEDTIME PRN (Reason: Sleep) RF: 0 metoprolol succinate 50 mg Tablet Extended Release 24 Hr 50 mg PO DAILY RF: 0 omeprazole 20 mg Capsule,Delayed Release(Dr/Ec) 20 mg PO DAILY RF: 0 lisinopril 5 mg Tablet 5 mg PO DAILY RF: 0 albuterol sulfate [ProAir HFA] 90 mcg/actuation Hfa Aerosol Inhaler 2 puff INHALATION Q4-6H PRN (Reason: COUGH/WHEEZE) RF: 0 atorvastatin 20 mg tablet 20 mg PO DAILY RF: 0 clonazepam 1 mg tablet 0.5 tab PO DAILY PRN (Reason: anxiety) RF: 0 levothyroxine 75 mcg tablet 75 mcg PO DAILY RF: 0 loratadine 10 mg tablet 10 mg PO DAILY RF: 0 metformin 1,000 mg tablet 1,000 mg PO BID RF: 0 warfarin 5 mg tablet 10 mg PO DIRECTED RF: 0 acetaminophen [Tylenol Extra Strength] 500 mg tablet 500 mg PO Q6H PRN (Reason: pain or fever) Qty: 20 RF: 0 cyclobenzaprine 5 mg tablet 5 mg PO Q8H PRN (Reason: pain (scale score 7-10)) 5 Days Qty: 14 RF: 0 lidocaine [Lidoderm] 5 % adhesive patch,medicated 1 patch topical DAILY MDD remove after 12 hours PRN (Reason: pain) Qty: 30 RF: 0 metoclopramide HCl [Reglan] 10 mg tablet 10 mg PO Q6H PRN (Reason: nausea and vomiting) Qty: 14 RF: 0 furosemide [Lasix] 20 mg tablet 20 mg PO QAM Qty: 30 RF: 0 sertraline 100 mg tablet 100 mg PO RF: 0 (DME) FreeStyle Lite Strips Strip See Rx Instructions strip .ROUTE .MEDSUPPLY Qty: 10 RF: 0 Toujeo Max U-300 SoloStar 300 unit/mL (3 mL) insulin pen 45 unit subcut BEDTIME 30 Days Qty: 6 RF: 3 insulin lispro [Humalog KwikPen Insulin] 100 unit/mL insulin pen See Rx Instructions subcut TID 30 Days Qty: 15 RF: 3 Trulicity 3 mg/0.5 mL pen injector 3 mg subcut QWEEK 28 Days Qty: 2 RF: 3 Referrals: Physician,Unknown [Primary Care Provider] - 2 days [facility] Past Medical History Source: nursing notes reviewed Medical History Anxiety Asthma BMI 50.0-59.9, adult Cardiomyopathy CHF (congestive heart failure) Depression Diabetes mellitus, type 2 Diabetes type 2, uncontrolled DVT (deep vein thrombosis) in Essential hypertension Gallstones Hyperlipidemia LDL goal <70 Hypertension Hypothyroidism Irritable bowel Mood disorder ROGERIO (obstructive sleep apnea) Pancreatitis PTSD (post-traumatic stress disorder) Pulmonary embolism Surgical History History of dental surgery History of open heart surgery Hx of hernia repair Hx of removal of cyst Family History Family History Paternal Grandmother Diabetes Social History Social History Household Members: None Housing: Apartment Housing Other:: 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 Do you presently have visiting nurse or other home services: Yes Alcohol intake: never Patient Tobacco Use Status: Never used Tobacco Use of substances other than those prescribed or required for medical reasons: No Advance Directives: No Advance Directives Information Provided: No Patient : No service: No Sexual orientation: Lesbian/Good/Homosexual
[2020-09-02 00:16] LABS: Alanine Aminotransferase 17 U/L (0-31); Albumin Level 3.8 g/dL (3.5-5.0); Alkaline Phosphatase 93 U/L (39-117); Anion Gap 13 (12-20); Aspartate Amino Transferase 11 U/L (5-31); Bilirubin Direct < 0.2 mg/dL (0.0-0.5); Bilirubin Total 0.5 mg/dL (0.0-1.0); Blood Urea Nitrogen 14 mg/dL (9-16); Calcium 9.3 mg/dL (8.4-10.2); Carbon Dioxide 27 mmol/L (22-29); Chloride 101 mmol/L (96-108); Estimated Glomerular Filt Rate 59; Glucose Random 339 mg/dL (60-115); Lipase 38 U/L (8-78); Potassium 4.1 mmol/L (3.3-5.1); Sodium 137 mmol/L (135-145); Total Protein 6.8 g/dL (6.5-8.0)
[2020-09-02 00:51] LABS: Glucose Urine UA >=1000 MG/DL (NEG); Leukocyte Esterase Urine NEG (NEG); Nitrite Urine NEG (NEG); Urine Blood NEG (NEG); Urine Ketones NEG (NEG); Urine Protein TRACE MG/DL (NEG-TRACE)
[2020-09-02 00:52] VITALS: BP 117/54; RESP 18; TEMP 36.9; O2SAT 95
[2020-09-02 00:52] LABS: Appearance Urine CLEAR; Color Urine YELLOW; UPreg QC Valid YES; Urine Pregnancy NEGATIVE (NEGATIVE)
[2020-09-02 00:55] LABS: INTERNATIONAL NORM RATIO 2.2 (0.9-1.1); Prothrombin Time 26.8 SEC (10.8-13.0)
[2020-09-02 00:57] LABS: Bacteria Urine 2+ /LPF; RBC Urine 0 /HPF (0); Squamous Epithelial Cell Urine 3+ /LPF; WBC Urine 0-2 /HPF (0-4)
[2020-09-02] MEDS: iohexoL 350 MG/ML 100 ML INFUS..BTL 85 ML IV (01:17)
[2020-09-02 02:00] VITALS: BP 110/60; PULSE 94; RESP 20; O2SAT 95
== END 2020-09-02 03:59 | disposition home or self-care (01) ==
PROVIDERS: Emergency Provider Student in an Organized Health Care Education/Training Program
DX: K58.0 Irritable bowel syndrome with diarrhea (principal); K21.9 Gastro-esophageal reflux disease without esophagitis; R10.9 Unspecified abdominal pain; R07.9 Chest pain, unspecified; Z79.899 Other long term (current) drug therapy
CPT/HCPCS: 36415; 74177; 80053; 80076; 81001; 81025; 82248; 83690; 85025; 85610; 99285; Q9967

== ENCOUNTER 2020-09-23 11:26 | Emergency (ER) | payer OTHER, SELFPAY ==
[2020-09-23 11:34] VITALS: BP 124/66; PULSE 101; PULSE 99; RESP 20; TEMP 36.9; O2SAT 93; O2SAT 97; BMI 55.8
--- NOTE | 2020-09-23 12:31 | PC.NURSE ---
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 seizure pads in place
[2020-09-23 13:12] LABS: Glucose Urine UA NEG (NEG); Leukocyte Esterase Urine NEG (NEG); Nitrite Urine NEG (NEG); Specific Gravity - Urine 1.015 (1.005-1.025); Urine Blood NEG (NEG); Urine Ketones NEG (NEG); Urine Protein TRACE MG/DL (NEG-TRACE)
[2020-09-23 13:14] LABS: UPreg QC Valid YES; Urine Pregnancy NEGATIVE (NEGATIVE)
[2020-09-23 13:15] LABS: Appearance Urine HAZY; Color Urine YELLOW
--- NOTE | 2020-09-23 13:28 | ED_ITS ---
HPI - General Adult General Chief complaint: Seizure Stated complaint: RIGHT LEG PAIN Time Seen by Provider: 09/23/20 12:17 Source: patient Mode of arrival: ambulatory Limitations: no limitations History of Present Illness HPI narrative: Patient presents to the ED for pseudo-seizure. Patient states her HEEL CUTTER informed her she has multiple seizures on the couch morning. Patient has history of pseudoseizures and has been evaluated by Neurology. Patient presently denies any symptoms since having seizure. Patient her peudoseizures are generally generalized tonic clonic which, occurred this morning by her HEEL CUTTER. Patient had similar presentation today. Onset (ago): minute(s) Related Data Home Medications Medication Instructions Recorded Confirmed albuterol sulfate 2.5 mg INHALATION QID PRN 12/26/19 07/22/20 albuterol sulfate [ProAir HFA] 2 puff INHALATION Q4-6H PRN 12/26/19 07/22/20 epinephrine [EpiPen 2-Mykel] 0.3 mg IM NEEDED PRN 12/26/19 07/22/20 lisinopril 5 mg PO DAILY 12/26/19 07/22/20 medroxyprogesterone [Provera] 20 mg PO DAILY 12/26/19 07/22/20 metoprolol succinate 50 mg PO DAILY 12/26/19 07/22/20 omeprazole 20 mg PO DAILY 12/26/19 07/22/20 trazodone 50 mg PO BEDTIME PRN 12/26/19 07/22/20 atorvastatin 20 mg PO DAILY 04/07/20 07/22/20 clonazepam 0.5 tab PO DAILY PRN 04/07/20 07/22/20 levothyroxine 75 mcg PO DAILY 04/07/20 07/22/20 loratadine 10 mg PO DAILY 04/07/20 07/22/20 metformin 1,000 mg PO BID 04/07/20 07/22/20 warfarin 10 mg PO DIRECTED 04/07/20 07/22/20 blood sugar diagnostic #10 ea 05/06/20 07/22/20 sertraline 100 mg tablet 100 mg PO tab 05/06/20 07/22/20 Previous Rx's Medication Instructions Recorded acetaminophen [Tylenol Extra 500 mg PO Q6H PRN #20 tab 05/06/20 Strength] cyclobenzaprine 5 mg PO Q8H PRN 5 Days #14 tab 05/06/20 lidocaine [Lidoderm] 1 patch TOPICAL DAILY PRN #30 ea 05/06/20 MDD remove after 12 hours metoclopramide HCl [Reglan] 10 mg PO Q6H PRN #14 tab 05/15/20 furosemide [Lasix] 20 mg PO QAM #30 tab 07/14/20 dulaglutide 3 mg/0.5 mL 3 mg SUBCUT QWEEK 28 Days #2 ml 07/22/20 subcutaneous pen injector insulin glargine U-300 conc 300 45 unit SUBCUT BEDTIME 30 Days #6 07/22/20 unit/mL (3 mL) subcutaneous pen ml insulin lispro 100 unit/mL See Rx Instructions SUBCUT TID 30 07/22/20 subcutaneous pen Days #15 ml flash glucose sensor 1 ea TOPICAL Q2W #2 kit 08/26/20 Allergies Allergy/AdvReac Type Severity Reaction Status Date / Time Penicillins [PENICILLINS] Allergy Intermediate HIVES Verified 07/22/20 11:46 egg [Egg] Allergy Mild SWELLING Verified 07/22/20 11:46 aspirin Allergy Unknown Unknown Verified 07/22/20 11:46 bee pollen [BEE STINGS] Allergy Unknown UNKNOWN Verified 07/22/20 11:46 lactose [LACTOSE] Allergy Unknown UNKNOWN Verified 07/22/20 11:46 latex [LATEX] Allergy Unknown HIVES Verified 07/22/20 11:46 oxycodone Allergy Unknown Unknown Verified 07/22/20 11:46 peanut [PEANUT] Allergy Unknown UNKNOWN Verified 07/22/20 11:46 penicillin V Allergy Unknown Unknown Verified 07/22/20 11:46 kiwi Allergy Anaphylaxis Verified 09/23/20 11:40 eggs,bees,latex,peanuts Allergy Unknown Unknown Uncoded 07/22/20 11:46 medical tape Allergy Unknown Unknown Uncoded 07/22/20 11:46 TAPE,PLASTIC Allergy Unknown RASH Uncoded 07/22/20 11:46 Review of Systems Review of Systems: Yes all other systems are reviewed and are negative Constitutional: Constitutional: Reports as per HPI and Reports no additional constitutional complaints Eyes: Eyes: Reports as per HPI and Reports no additional eye complaints ENT: Reports system reviewed and no additional complaints, except as documented and Reports as per HPI Cardiovascular: Cardiovascular: Reports as per HPI and Reports no additional cardiovascular complaints Respiratory: Respiratory: Reports as per HPI and Reports no additional respiratory complaints Gastrointestinal: Gastrointestinal: Reports as per HPI and Reports no additional gastrointestinal complaints Genitourinary: Genitourinary: Reports no additional female genitourinary complaints and Reports as per HPI Musculoskeletal: Musculoskeletal: Reports no additional musculoskeletal complaints and Reports as per HPI Neurologic: Reports system reviewed and no additional complaints, except as documented and Reports as per HPI Psychiatric: Psychiatric: Reports no additional psychiatric complaints and Reports as per HPI [facility] Past Medical History Medical History Anxiety Asthma BMI 50.0-59.9, adult Cardiomyopathy CHF (congestive heart failure) Depression Diabetes mellitus, type 2 Diabetes type 2, uncontrolled DVT (deep vein thrombosis) in Essential hypertension Gallstones Hyperlipidemia LDL goal <70 Hypertension Hypothyroidism Irritable bowel Mood disorder ROGERIO (obstructive sleep apnea) Pancreatitis PTSD (post-traumatic stress disorder) Pulmonary embolism Surgical History History of dental surgery History of open heart surgery Hx of hernia repair Hx of removal of cyst Family History Family History Paternal Grandmother Diabetes Social History Social History Household Members: None Housing: Apartment Housing Other:: Has HEEL CUTTER twice a day. Do you presently have visiting nurse or other home services: Yes Alcohol intake: never Patient Tobacco Use Status: Former Tobacco user Use of substances other than those prescribed or required for medical reasons: No Advance Directives: No Advance Directives Information Provided: No service: No Sexual orientation: Lesbian/Good/Homosexual Physical Exam Vital Signs: Vital Signs: Last Vital Signs Temp 98.1 F 09/23/20 15:05 Pulse 96 09/23/20 15:05 Resp 18 09/23/20 15:05 BP 114/72 09/23/20 15:05 Pulse Ox 95 09/23/20 15:05 Body Mass Index 55.8 Const: General: cooperative, healthy appearing, comfortable, no acute distress, well developed, alert, awake and Physically active Orientation/consciousness: patient oriented x3 HENMT: Head: Yes normal to inspection, Yes No palpable skull fracture present, Yes normocephalic, Yes atraumatic and No abrasion Eyes: General: appearance normal, both eyes and all related structures Neck: Neck: Yes normal visual inspection, Yes full ROM, Yes no lymph adenopathy, Yes no meningeal signs, Yes trachea midline, Yes supple and No tender Chest: Chest palpation & inspection: normal inspection of the chest and normal palpation of entire chest wall Resp: Effort & Inspection: normal respiratory effort and able to speak in complete sentences Auscultation: clear to auscultation bilaterally Cardio: Jugular venous distension: no JVD Heart sounds: S1 normal heart sound present and S2 normal heart sound present GI: Inspection: Yes normal to inspection and No abdominal wall ecchymosis Palpation (GI): not soft, not firm, nontender, no guarding and not rigid : General: No CVA tenderness and Yes no CVA tenderness Back/Spine/Pelvis: Back: no CVA tenderness, No CVA tenderness and No back tenderness Skin: General skin exam: no rashes or lesions noted and elasticity normal Neuro: Other: Negative facial droop. Negative slurred speech. All extremities equal strength 5+. Negative pronator drift. [id number] and rapid hand movement intact. Negative Romberg. Normal gait General: patient oriented x3, gait normal, no meningeal signs and CN's II-XI intact bilaterally Cranial nerves: Yes CN's II-XII intact bilaterally Extrem: Other: Bilateral lower extremity negative for swelling, pitting edema, tenderness,ecchymosis, deformity, or calf tenderness.. General: Yes normal to inspection and Yes full ROM Psych: Appearance: grossly normal, well kempt and not disheveled Course Course Course Narrative: Patient history of pseudoseizures presently vital signs stable and asymptomatic. Will do basic labs to make sure there is no electrolyte deficiencies. No indication for head CT. Patient denies any headache presently and negative for any neuro deficit. Reevaluation(s) Reevaluation #1: . Patient labs or at baseline except magnesium. Patient given 1 dose of oral magnesium. Patient has not had a seizure throughout the whole ED visit. Patient neuro exam is intact. Patient is safe for discharge. Once again history of pseudoseizures. No indication for head CT scan. Patient will follow-up with PCP Time: 16:06 Medical Decision Making MDM Narrative Medical decision making narrative: pseudoseizures Lab Data Result diagrams: 09/23/20 13:38 09/23/20 13:38 Labs: Lab Results 09/23/20 09/23/20 09/23/20 Range/Units 13:02 13:02 13:02 WBC (4.8-10.8) X10*3/uL RBC (4.20-5.50) X10*6/uL Hgb (12.0-16.0) g/dl Hct (37-47) % MCV (80-98) fL MCH (27.0-33.0) pg MCHC (31.0-35.0) g/dl RDW (11.0-16.0) % Plt Count (160-400) X10*3/uL MPV (9.4-12.3) fL Immature Gran % (Auto) (0.0-0.4) % Neut % (Auto) (45-73) % Lymph % (Auto) (20-40) % [place] % (Auto) (2-11) % Eos % (Auto) (0-4) % Baso % (Auto) (0-2) % Lymph # (Auto) (1.2-4.9) X10*3/uL [place] # (Auto) (0.1-1.2) X10*3/uL Eos # (Auto) (0.0-0.4) X10*3/uL Baso # (Auto) (0.0-0.2) X10*3/uL Abs Immat Gran (auto) (0.00-0.03) X10*3/uL Absolute Neuts (auto) (2.0-8.3) X10*3/uL Absolute Nucleated RBC (0.0-0.012) X10*3/uL Nucleated RBC % (auto) (0.0-0.2) /100WBC PT (10.8-13.0) SEC INR (0.9-1.1) APTT (24.1-38.0) SEC Sodium (135-145) mmol/L Potassium (3.3-5.1) mmol/L Chloride (96-108) mmol/L Carbon Dioxide (22-29) mmol/L Anion Gap (12-20) BUN (9-16) mg/dL Creatinine (0.5-1.4) mg/dL Estim Creat Clear Calc Estimated GFR Random Glucose (60-115) mg/dL Calcium (8.4-10.2) mg/dL Magnesium (1.6-2.6) mg/dL Total Bilirubin (0.0-1.0) mg/dL AST (5-31) U/L ALT (0-31) U/L Alkaline Phosphatase (39-117) U/L Total Protein (6.5-8.0) g/dL Albumin (3.5-5.0) g/dL Urine Color YELLOW Urine Appearance HAZY Urine pH 6.0 (5.0-8.0) Ur Specific [place] 1.015 (1.005-1.025) Urine Protein TRACE (NEG-TRACE) MG/DL Urine Glucose (UA) NEG (NEG) MG/DL Urine Ketones NEG (NEG) MG/DL Urine Blood NEG (NEG) Urine Nitrite NEG (NEG) Ur Leukocyte Esterase NEG (NEG) Urine Test NEGATIVE (NEGATIVE) Urine Opiates Screen Not Detected (Not Detect) Ur Barbiturates Screen Not Detected (Not Detect) Ur Phencyclidine Scrn Not Detected (Not Detect) Ur Amphetamines Screen Not Detected (Not Detect) U Benzodiazepines Scrn Not Detected (Not Detect) Urine Cocaine Screen Not Detected (Not Detect) U Marijuana (THC) Screen Not Detected (Not Detect) Ethyl Alcohol mg/dL 09/23/20 09/23/20 09/23/20 Range/Units 13:38 13:38 13:38 WBC 10.0 (4.8-10.8) X10*3/uL RBC 4.89 (4.20-5.50) X10*6/uL Hgb 11.8 L (12.0-16.0) g/dl Hct 38.9 (37-47) % MCV 79.6 L (80-98) fL MCH 24.1 L (27.0-33.0) pg MCHC 30.3 L (31.0-35.0) g/dl RDW 19.8 H (11.0-16.0) % Plt Count 301 (160-400) X10*3/uL MPV 9.8 (9.4-12.3) fL Immature Gran % (Auto) 0.3 (0.0-0.4) % Neut % (Auto) 70.0 (45-73) % Lymph % (Auto) 20.5 (20-40) % [place] % (Auto) 7.5 (2-11) % Eos % (Auto) 1.2 (0-4) % Baso % (Auto) 0.5 (0-2) % Lymph # (Auto) 2.1 (1.2-4.9) X10*3/uL [place] # (Auto) 0.8 (0.1-1.2) X10*3/uL Eos # (Auto) 0.1 (0.0-0.4) X10*3/uL Baso # (Auto) 0.1 (0.0-0.2) X10*3/uL Abs Immat Gran (auto) 0.03 (0.00-0.03) X10*3/uL Absolute Neuts (auto) 7.0 (2.0-8.3) X10*3/uL Absolute Nucleated RBC 0.000 (0.0-0.012) X10*3/uL Nucleated RBC % (auto) 0.0 (0.0-0.2) /100WBC PT (10.8-13.0) SEC INR (0.9-1.1) APTT (24.1-38.0) SEC Sodium 141 (135-145) mmol/L Potassium 4.5 (3.3-5.1) mmol/L Chloride 106 (96-108) mmol/L Carbon Dioxide 27 (22-29) mmol/L Anion Gap 13 (12-20) BUN 14 (9-16) mg/dL Creatinine 0.80 (0.5-1.4) mg/dL Estim Creat Clear Calc 140.8 Estimated GFR > 60 Random Glucose 116 H D (60-115) mg/dL Calcium 9.4 (8.4-10.2) mg/dL Magnesium 1.4 L* (1.6-2.6) mg/dL Total Bilirubin 0.2 (0.0-1.0) mg/dL AST 15 (5-31) U/L ALT 16 (0-31) U/L Alkaline Phosphatase 74 D (39-117) U/L Total Protein 6.9 (6.5-8.0) g/dL Albumin 3.6 (3.5-5.0) g/dL Urine Color Urine Appearance Urine pH (5.0-8.0) Ur Specific [place] (1.005-1.025) Urine Protein (NEG-TRACE) MG/DL Urine Glucose (UA) (NEG) MG/DL Urine Ketones (NEG) MG/DL Urine Blood (NEG) Urine Nitrite (NEG) Ur Leukocyte Esterase (NEG) Urine Test (NEGATIVE) Urine Opiates Screen (Not Detect) Ur Barbiturates Screen (Not Detect) Ur Phencyclidine Scrn (Not Detect) Ur Amphetamines Screen (Not Detect) U Benzodiazepines Scrn (Not Detect) Urine Cocaine Screen (Not Detect) U Marijuana (THC) Screen (Not Detect) Ethyl Alcohol < 10 mg/dL 09/23/20 09/23/20 Range/Units 13:38 13:39 WBC (4.8-10.8) X10*3/uL RBC (4.20-5.50) X10*6/uL Hgb (12.0-16.0) g/dl Hct (37-47) % MCV (80-98) fL MCH (27.0-33.0) pg MCHC (31.0-35.0) g/dl RDW (11.0-16.0) % Plt Count (160-400) X10*3/uL MPV (9.4-12.3) fL Immature Gran % (Auto) (0.0-0.4) % Neut % (Auto) (45-73) % Lymph % (Auto) (20-40) % [place] % (Auto) (2-11) % Eos % (Auto) (0-4) % Baso % (Auto) (0-2) % Lymph # (Auto) (1.2-4.9) X10*3/uL [place] # (Auto) (0.1-1.2) X10*3/uL Eos # (Auto) (0.0-0.4) X10*3/uL Baso # (Auto) (0.0-0.2) X10*3/uL Abs Immat Gran (auto) (0.00-0.03) X10*3/uL Absolute Neuts (auto) (2.0-8.3) X10*3/uL Absolute Nucleated RBC (0.0-0.012) X10*3/uL Nucleated RBC % (auto) (0.0-0.2) /100WBC PT 31.3 H (10.8-13.0) SEC INR 2.6 H (0.9-1.1) APTT 46.3 H (24.1-38.0) SEC Sodium (135-145) mmol/L Potassium (3.3-5.1) mmol/L Chloride (96-108) mmol/L Carbon Dioxide (22-29) mmol/L Anion Gap (12-20) BUN (9-16) mg/dL Creatinine (0.5-1.4) mg/dL Estim Creat Clear Calc Estimated GFR Random Glucose (60-115) mg/dL Calcium (8.4-10.2) mg/dL Magnesium Cancelled (1.6-2.6) mg/dL Total Bilirubin (0.0-1.0) mg/dL AST (5-31) U/L ALT (0-31) U/L Alkaline Phosphatase (39-117) U/L Total Protein (6.5-8.0) g/dL Albumin (3.5-5.0) g/dL Urine Color Urine Appearance Urine pH (5.0-8.0) Ur Specific [place] (1.005-1.025) Urine Protein (NEG-TRACE) MG/DL Urine Glucose (UA) (NEG) MG/DL Urine Ketones (NEG) MG/DL Urine Blood (NEG) Urine Nitrite (NEG) Ur Leukocyte Esterase (NEG) Urine Test (NEGATIVE) Urine Opiates Screen (Not Detect) Ur Barbiturates Screen (Not Detect) Ur Phencyclidine Scrn (Not Detect) Ur Amphetamines Screen (Not Detect) U Benzodiazepines Scrn (Not Detect) Urine Cocaine Screen (Not Detect) U Marijuana (THC) Screen (Not Detect) Ethyl Alcohol mg/dL Discharge Plan Discharge Clinical Impression: Pseudoseizure Patient Disposition: Home, Self-Care Instructions: Recurrent Seizures in Adults (ED) Additional Instructions: return to ED for any chest pain, shortness of breath, fever, chills, neck stiffness, severe headache, nausea, vomiting, paralysis of extremities, slurred speech, facial droop, or any other physical complaints. Please follow-up with PCP. Your labs came back normal. Prescriptions: No Action FreeStyle [place] 14 Day Sensor Kit 1 ea topical Q2W Qty: 2 RF: 11 albuterol sulfate 2.5 mg /3 mL (0.083 %) Solution For Nebulization 2.5 mg INHALATION QID PRN (Reason: Allergic Reaction) RF: 0 epinephrine [EpiPen 2-Mykel] 0.3 mg/0.3 mL Auto-Injector 0.3 mg IM NEEDED PRN (Reason: SEVERE ALLERGIC REACTION) RF: 0 medroxyprogesterone [Provera] 10 mg Tablet 20 mg PO DAILY RF: 0 trazodone 50 mg Tablet 50 mg PO BEDTIME PRN (Reason: Sleep) RF: 0 metoprolol succinate 50 mg Tablet Extended Release 24 Hr 50 mg PO DAILY RF: 0 omeprazole 20 mg Capsule,Delayed Release(Dr/Ec) 20 mg PO DAILY RF: 0 lisinopril 5 mg Tablet 5 mg PO DAILY RF: 0 albuterol sulfate [ProAir HFA] 90 mcg/actuation Hfa Aerosol Inhaler 2 puff INHALATION Q4-6H PRN (Reason: COUGH/WHEEZE) RF: 0 atorvastatin 20 mg tablet 20 mg PO DAILY RF: 0 clonazepam 1 mg tablet 0.5 tab PO DAILY PRN (Reason: anxiety) RF: 0 levothyroxine 75 mcg tablet 75 mcg PO DAILY RF: 0 loratadine 10 mg tablet 10 mg PO DAILY RF: 0 metformin 1,000 mg tablet 1,000 mg PO BID RF: 0 warfarin 5 mg tablet 10 mg PO DIRECTED RF: 0 acetaminophen [Tylenol Extra Strength] 500 mg tablet 500 mg PO Q6H PRN (Reason: pain or fever) Qty: 20 RF: 0 cyclobenzaprine 5 mg tablet 5 mg PO Q8H PRN (Reason: pain (scale score 7-10)) 5 Days Qty: 14 RF: 0 lidocaine [Lidoderm] 5 % adhesive patch,medicated 1 patch topical DAILY MDD remove after 12 hours PRN (Reason: pain) Qty: 30 RF: 0 metoclopramide HCl [Reglan] 10 mg tablet 10 mg PO Q6H PRN (Reason: nausea and vomiting) Qty: 14 RF: 0 furosemide [Lasix] 20 mg tablet 20 mg PO QAM Qty: 30 RF: 0 sertraline 100 mg tablet 100 mg PO RF: 0 (DME) FreeStyle Lite Strips Strip See Rx Instructions strip .ROUTE .MEDSUPPLY Qty: 10 RF: 0 Toujeo Max U-300 SoloStar 300 unit/mL (3 mL) insulin pen 45 unit subcut BEDTIME 30 Days Qty: 6 RF: 3 insulin lispro [Humalog KwikPen Insulin] 100 unit/mL insulin pen See Rx Instructions subcut TID 30 Days Qty: 15 RF: 3 Trulicity 3 mg/0.5 mL pen injector 3 mg subcut QWEEK 28 Days Qty: 2 RF: 3 Referrals: Renee Saavedra MD [Primary Care Provider] - 2 days ( Pseudo-seizure) Interventions: ED Discharge Assessment Last Done: 09/23/20 16:25 Discharge Date/Time: 09/23/20 16:26 Print Language: Turkmen
[2020-09-23 13:40] LABS: Amphetamine Screen Urine Not Detected (Not Detect); Barbiturates, Urine Not Detected (Not Detect); Benzodiazepines Screen Urine Not Detected (Not Detect); Cannabinoid Screen Urine Not Detected (Not Detect); Cocaine Screen Urine Not Detected (Not Detect); Opiate Screen Urine Not Detected (Not Detect); Phencyclidine Screen Urine Not Detected (Not Detect)
[2020-09-23 13:44] LABS: MANUAL DIFF FLAG NO
[2020-09-23 13:48] LABS: Basophils Absolute Auto 0.1 X10*3/uL (0.0-0.2); Basophils Percent Auto 0.5 % (0-2); Eosinophils Absolute Auto 0.1 X10*3/uL (0.0-0.4); Eosinophils Percent Auto 1.2 % (0-4); Hematocrit 38.9 % (37-47); Hemoglobin 11.8 g/dl (12.0-16.0); Imm Gran Abs Auto 0.03 X10*3/uL (0.00-0.03); Imm Gran Pct Auto 0.3 % (0.0-0.4); Lymphocytes Absolute Auto 2.1 X10*3/uL (1.2-4.9); Lymphocytes Percent Auto 20.5 % (20-40); Mean Corpuscular HGB Conc 30.3 g/dl (31.0-35.0); Mean Corpuscular Hemoglobin 24.1 pg (27.0-33.0); Mean Corpuscular Volume 79.6 fL (80-98); Mean Platelet Volume 9.8 fL (9.4-12.3); Monocytes Absolute Auto 0.8 X10*3/uL (0.1-1.2); Monocytes Percent Auto 7.5 % (2-11); Platelet Count 301 X10*3/uL (160-400); Red Blood Count 4.89 X10*6/uL (4.20-5.50); Red Cell Distribution Width 19.8 % (11.0-16.0)
[2020-09-23 13:58] LABS: INTERNATIONAL NORM RATIO 2.6 (0.9-1.1); Prothrombin Time 31.3 SEC (10.8-13.0)
[2020-09-23 14:00] LABS: Partial Thromboplastin Time 46.3 SEC (24.1-38.0)
[2020-09-23 14:14] LABS: Ethanol < 10 mg/dL
[2020-09-23 14:23] LABS: Alanine Aminotransferase 16 U/L (0-31); Albumin Level 3.6 g/dL (3.5-5.0); Alkaline Phosphatase 74 U/L (39-117); Anion Gap 13 (12-20); Aspartate Amino Transferase 15 U/L (5-31); Bilirubin Total 0.2 mg/dL (0.0-1.0); Blood Urea Nitrogen 14 mg/dL (9-16); Calcium 9.4 mg/dL (8.4-10.2); Carbon Dioxide 27 mmol/L (22-29); Chloride 106 mmol/L (96-108); Creatinine Clr Calc Pharmacy 140.8; Estimated Glomerular Filt Rate > 60; Glucose Random 116 mg/dL (60-115); Magnesium 1.4 mg/dL (1.6-2.6); Potassium 4.5 mmol/L (3.3-5.1); Sodium 141 mmol/L (135-145); Total Protein 6.9 g/dL (6.5-8.0)
[2020-09-23] MEDS: Magnesium Oxide 400 MG TABLET PO (15:04)
[2020-09-23 15:05] VITALS: BP 114/72; PULSE 96; RESP 18; TEMP 36.7; O2SAT 95
--- NOTE | 2020-09-23 15:24 | PC.NURSE ---
1520: pt stood and pivoted to commode without any assistance. pt gait steady, reproduction artist strong,
--- NOTE | 2020-09-23 15:28 | PC.NURSE ---
pt able to get up and toliet self. pt is has steady gait.
== END 2020-09-23 16:26 | disposition home or self-care (01) ==
PROVIDERS: Physician Assistant; Emergency Provider Emergency Medicine Emergency Medical Services; PCP Internal Medicine
DX: G40.89 Other seizures (principal); E11.9 Type 2 diabetes mellitus without complications; I10 Essential (primary) hypertension; Z86.711 Personal history of pulmonary embolism; Z86.718 Personal history of other venous thrombosis and embolism; Z79.01 Long term (current) use of anticoagulants; Z79.4 Long term (current) use of insulin; Z79.899 Other long term (current) drug therapy
CPT/HCPCS: 36415; 80053; 80307; 81003; 81025; 82077; 83735; 85025; 85610; 85730; 99283; 99284

== ENCOUNTER 2020-09-26 20:17 | Emergency (ER) | payer OTHER, SELFPAY ==
--- NOTE | ~2020-09-26 | XR_ITS ---
Indication: Trauma EXAMINATION: Right foot, right ankle. 3 views of the right foot do not demonstrate acute fracture or dislocation. 2 detail views of the right ankle do not demonstrate acute fracture or dislocation. XR/XR foot RT min 3V IMPRESSION: No fracture or dislocation right foot, right ankle.
--- NOTE | ~2020-09-26 | XR_ITS ---
Indication: Trauma EXAMINATION: Right foot, right ankle. 3 views of the right foot do not demonstrate acute fracture or dislocation. 2 detail views of the right ankle do not demonstrate acute fracture or dislocation. XR/XR ankle RT min 3V IMPRESSION: No fracture or dislocation right foot, right ankle.
[2020-09-26 21:06] VITALS: BP 109/52; PULSE 98; RESP 17; TEMP 36.6; O2SAT 97; BMI 54.8
[2020-09-26] MEDS: Acetaminophen 325 MG TABLET 975 MG PO (22:34)
--- NOTE | 2020-09-26 22:38 | ED_ITS ---
HPI - Extremity Injury (Lower) General Chief Complaint: Extremity Injury, Lower Stated Complaint: RT ANKLE PAIN Time Seen by Provider: 09/26/20 22:19 Source: patient Mode of arrival: EMS History of Present Illness HPI Narrative: 45-year-old female twisted her right foot while trying to get off of the elevator that did not line up with the floor when the doors opened. Patient reports pain and swelling that increases with weight-bearing. Related Data Home Medications Medication Instructions Recorded Confirmed albuterol sulfate 2.5 mg INHALATION QID PRN 12/26/19 07/22/20 albuterol sulfate [ProAir HFA] 2 puff INHALATION Q4-6H PRN 12/26/19 07/22/20 epinephrine [EpiPen 2-Mykel] 0.3 mg IM NEEDED PRN 12/26/19 07/22/20 lisinopril 5 mg PO DAILY 12/26/19 07/22/20 medroxyprogesterone [Provera] 20 mg PO DAILY 12/26/19 07/22/20 metoprolol succinate 50 mg PO DAILY 12/26/19 07/22/20 omeprazole 20 mg PO DAILY 12/26/19 07/22/20 trazodone 50 mg PO BEDTIME PRN 12/26/19 07/22/20 atorvastatin 20 mg PO DAILY 04/07/20 07/22/20 clonazepam 0.5 tab PO DAILY PRN 04/07/20 07/22/20 levothyroxine 75 mcg PO DAILY 04/07/20 07/22/20 loratadine 10 mg PO DAILY 04/07/20 07/22/20 metformin 1,000 mg PO BID 04/07/20 07/22/20 warfarin 10 mg PO DIRECTED 04/07/20 07/22/20 blood sugar diagnostic #10 ea 05/06/20 07/22/20 sertraline 100 mg tablet 100 mg PO tab 05/06/20 07/22/20 Previous Rx's Medication Instructions Recorded acetaminophen [Tylenol Extra 500 mg PO Q6H PRN #20 tab 05/06/20 Strength] cyclobenzaprine 5 mg PO Q8H PRN 5 Days #14 tab 05/06/20 lidocaine [Lidoderm] 1 patch TOPICAL DAILY PRN #30 ea 05/06/20 MDD remove after 12 hours metoclopramide HCl [Reglan] 10 mg PO Q6H PRN #14 tab 05/15/20 furosemide [Lasix] 20 mg PO QAM #30 tab 07/14/20 dulaglutide 3 mg/0.5 mL 3 mg SUBCUT QWEEK 28 Days #2 ml 07/22/20 subcutaneous pen injector insulin glargine U-300 conc 300 45 unit SUBCUT BEDTIME 30 Days #6 07/22/20 unit/mL (3 mL) subcutaneous pen ml insulin lispro 100 unit/mL See Rx Instructions SUBCUT TID 30 07/22/20 subcutaneous pen Days #15 ml flash glucose sensor 1 ea TOPICAL Q2W #2 kit 08/26/20 Allergies Allergy/AdvReac Type Severity Reaction Status Date / Time Penicillins [PENICILLINS] Allergy Intermediate HIVES Verified 09/26/20 21:54 egg [Egg] Allergy Mild SWELLING Verified 09/26/20 21:54 aspirin Allergy Unknown Unknown Verified 09/26/20 21:54 bee pollen [BEE STINGS] Allergy Unknown UNKNOWN Verified 09/26/20 21:54 lactose [LACTOSE] Allergy Unknown UNKNOWN Verified 09/26/20 21:54 latex [LATEX] Allergy Unknown HIVES Verified 09/26/20 21:54 oxycodone Allergy Unknown Unknown Verified 09/26/20 21:54 peanut [PEANUT] Allergy Unknown UNKNOWN Verified 09/26/20 21:54 penicillin V Allergy Unknown Unknown Verified 09/26/20 21:54 kiwi Allergy Anaphylaxis Verified 09/26/20 21:54 eggs,bees,latex,peanuts Allergy Unknown Unknown Uncoded 07/22/20 11:46 medical tape Allergy Unknown Unknown Uncoded 07/22/20 11:46 TAPE,PLASTIC Allergy Unknown RASH Uncoded 07/22/20 11:46 Review of Systems Review of Systems: Pertinent positives and negatives as stated in HPI 10 point review of systems is otherwise negative. [facility] Past Medical History Source: nursing notes reviewed Medical History Anxiety Asthma BMI 50.0-59.9, adult Cardiomyopathy CHF (congestive heart failure) Depression Diabetes mellitus, type 2 Diabetes type 2, uncontrolled DVT (deep vein thrombosis) in Essential hypertension Gallstones Hyperlipidemia LDL goal <70 Hypertension Hypothyroidism Irritable bowel Mood disorder ROGERIO (obstructive sleep apnea) Pancreatitis PTSD (post-traumatic stress disorder) Pulmonary embolism Surgical History History of dental surgery History of open heart surgery Hx of hernia repair Hx of removal of cyst Family History Family History Paternal Grandmother Diabetes Social History Social History Household Members: None Housing: Apartment Housing Other:: 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 Do you presently have visiting nurse or other home services: Yes Alcohol intake: never Patient Tobacco Use Status: Former Tobacco user Advance Directives: No Advance Directives Information Provided: Yes Patient : No service: No Sexual orientation: Lesbian/Good/Homosexual Physical Exam Vital Signs: Vital Signs: Last Vital Signs Temp 97.8 F 09/26/20 21:06 Pulse 98 09/26/20 21:06 Resp 17 09/26/20 21:06 BP 109/52 L 09/26/20 21:06 Pulse Ox 97 09/26/20 21:06 Oxygen Flow Rate 2 09/26/20 21:06 Body Mass Index 54.8 VITAL SIGNS: Reviewed. GENERAL: morbidly obese,Well developed, well nourished, in no acute distress. HEAD: Normocephalic/atraumatic, EYES: PERRLA, EOMI OROPHARYNX: no oral lesions noted, posterior pharynx clear NECK: Supple, no adenopathy LUNGS: Normal breath sounds. SpO2<97> Nasal cannula in place at baseline CARDIOVASCULAR: Regular rate and rhythm without noted murmurs, no JVD or lower extremity edema. ABDOMEN: Soft, non-tender, non-distended with bowel sounds. RIGHT FOOT: MILD SWELLING AT THE BY MALLEOLAR, CAPILLARY REFILL LESS THAN 3 SECONDS, PALPABLE DP/PT SKIN: Inspection of the skin reveals no rashes, ulcerations, jaundice, pallor, or petechiae. NEUROLOGIC: Alert and oriented x 4. Strength and sensation to light touch were grossly intact x 4. Course Course Course Narrative: 45-YEAR-OLD FEMALE WITH HISTORY AND CLINICAL PRESENTATION CONSISTENT WITH RIGHT ANKLE SPRAIN AFTER REVIEW OF X-RAY AND FOOT NEGATIVE FOR ACUTE FRACTURE OR DISLOCATION. PATIENT WAS PROVIDED WITH ANALGESICS, AN MORELIA WRAP WAS APPLIED AND PATIENT WAS PROVIDED CRUTCH TRAINING. Discharge Plan Discharge Clinical Impression: Right ankle sprain Patient Disposition: Home, Self-Care Instructions: Ankle Sprain (ED), Crutch Instructions (ED), R.I.C.E. Treatment (ED) Additional Instructions: Resume all home medications as prescribed. Recommend [id number] Tylenol for pain. Follow-up with your primary care provider in the next 2-3 days for re- evaluation. Return to the ER for any acute worsening of your symptoms. Prescriptions: No Action [facility] 14 Day Sensor Kit 1 ea topical Q2W Qty: 2 RF: 11 albuterol sulfate 2.5 mg /3 mL (0.083 %) Solution For Nebulization 2.5 mg INHALATION QID PRN (Reason: Allergic Reaction) RF: 0 epinephrine [EpiPen 2-Mykel] 0.3 mg/0.3 mL Auto-Injector 0.3 mg IM NEEDED PRN (Reason: SEVERE ALLERGIC REACTION) RF: 0 medroxyprogesterone [Provera] 10 mg Tablet 20 mg PO DAILY RF: 0 trazodone 50 mg Tablet 50 mg PO BEDTIME PRN (Reason: Sleep) RF: 0 metoprolol succinate 50 mg Tablet Extended Release 24 Hr 50 mg PO DAILY RF: 0 omeprazole 20 mg Capsule,Delayed Release(Dr/Ec) 20 mg PO DAILY RF: 0 lisinopril 5 mg Tablet 5 mg PO DAILY RF: 0 albuterol sulfate [ProAir HFA] 90 mcg/actuation Hfa Aerosol Inhaler 2 puff INHALATION Q4-6H PRN (Reason: COUGH/WHEEZE) RF: 0 atorvastatin 20 mg tablet 20 mg PO DAILY RF: 0 clonazepam 1 mg tablet 0.5 tab PO DAILY PRN (Reason: anxiety) RF: 0 levothyroxine 75 mcg tablet 75 mcg PO DAILY RF: 0 loratadine 10 mg tablet 10 mg PO DAILY RF: 0 metformin 1,000 mg tablet 1,000 mg PO BID RF: 0 warfarin 5 mg tablet 10 mg PO DIRECTED RF: 0 acetaminophen [Tylenol Extra Strength] 500 mg tablet 500 mg PO Q6H PRN (Reason: pain or fever) Qty: 20 RF: 0 cyclobenzaprine 5 mg tablet 5 mg PO Q8H PRN (Reason: pain (scale score 7-10)) 5 Days Qty: 14 RF: 0 lidocaine [Lidoderm] 5 % adhesive patch,medicated 1 patch topical DAILY MDD remove after 12 hours PRN (Reason: pain) Qty: 30 RF: 0 metoclopramide HCl [Reglan] 10 mg tablet 10 mg PO Q6H PRN (Reason: nausea and vomiting) Qty: 14 RF: 0 furosemide [Lasix] 20 mg tablet 20 mg PO QAM Qty: 30 RF: 0 sertraline 100 mg tablet 100 mg PO RF: 0 (DME) FreeStyle Lite Strips Strip See Rx Instructions strip .ROUTE .MEDSUPPLY Qty: 10 RF: 0 Toujeo Max U-300 SoloStar 300 unit/mL (3 mL) insulin pen 45 unit subcut BEDTIME 30 Days Qty: 6 RF: 3 insulin lispro [Humalog KwikPen Insulin] 100 unit/mL insulin pen See Rx Instructions subcut TID 30 Days Qty: 15 RF: 3 Trulicity 3 mg/0.5 mL pen injector 3 mg subcut QWEEK 28 Days Qty: 2 RF: 3 Referrals: Renee Saavedra MD [Primary Care Provider] - 2 days
--- NOTE | 2020-09-26 23:42 | PC.NURSE ---
PT TRANSPORTED HOME BY EMS, PT ON HOME O2 AND UNABLE TO STAND WITH STABILITY.
--- NOTE | 2020-09-26 23:46 | PC.NURSE ---
MORELIA WRAP AND CRUTCHES BY PCT.
== END 2020-09-26 23:47 | disposition home or self-care (01) ==
PROVIDERS: Emergency Provider Student in an Organized Health Care Education/Training Program; PCP Internal Medicine
DX: M25.571 Pain in right ankle and joints of right foot (principal); S93.401A Sprain of unspecified ligament of right ankle, initial encounter; X50.1XXA Overexertion from prolonged static or awkward postures, initial encounter; Y93.89 Activity, other specified; Y92.9 Unspecified place or not applicable; Y99.9 Unspecified external cause status
CPT/HCPCS: 73610; 73630; 99283

== ENCOUNTER 2020-10-29 17:02 | Emergency (ER) | payer OTHER, SELFPAY ==
--- NOTE | ~2020-10-29 | CT_ITS ---
EXAMINATION: CT ANGIOGRAM OF THE CHEST WITH AND WITHOUT CONTRAST (CT PULMONARY ANGIOGRAM FOR PE) CLINICAL INFORMATION: Reason for Exam low pulsox, tachy, h/o PE INR non therapeutic COMPARISON: None TECHNIQUE: Prior to contrast administration, noncontrast localization images were obtained. Subsequently, multidetector volumetric imaging was performed from the thoracic inlet to below the diaphragms following the administration of 80 mL Omnipaque 350 intravenous contrast. No contrast reaction reported Sagittal, coronal, and MIP oblique sagittal reformatted images were obtained on the CT workstation, uploaded to PACS, and reviewed. This CT examination was performed using dose optimization techniques as appropriate, variously including the following: *Automated exposure control *Adjustment of mA and/or kV according to patient size (this includes techniques or standardized protocols for targeted exams where dose is matched to indication/reason for exam; i.e. extremities or head) *Use of iterative reconstruction technique Total exam dose-length product 591 mGy-cm FINDINGS: QUALITY OF STUDY/CONTRAST BOLUS: Suboptimal due to body habitus. PULMONARY ARTERIES: There is no central or lobar pulmonary embolism. Limited evaluation of segmental and subsegmental branches. THORACIC AORTA: No aneurysm or dissection. LUNG: The central airways are patent. Limited evaluation of the lung parenchyma due to artifact. Subtle groundglass appearance of the lungs likely associated with atelectasis and low lung volumes. No dense consolidation. No pulmonary nodule identified. PLEURA: No pleural effusion or pneumothorax. MEDIASTINUM: Prominent heart size. No pericardial effusion. No hilar or mediastinal lymphadenopathy. No evidence of septal bowing or right heart strain. CHEST WALL/AXILLA: No axillary or internal mammary lymphadenopathy. OSSEOUS STRUCTURES: No acute or suspicious osseous abnormality. Status post median sternotomy. UPPER ABDOMEN: There is reflux of contrast into the hepatic veins to suggest elevated right heart pressures. Gallstones are noted. CT/CT angio chest PE protocol IMPRESSION: Study is limited due to body habitus and motion. No pulmonary embolism is identified. Reflux of contrast into the IVC suggesting elevated right heart pressures. The heart is prominent. VTE: negative
--- NOTE | ~2020-10-29 | XR_ITS ---
EXAMINATION: XR CHEST CLINICAL INFORMATION: Shortness of breath COMPARISON: 07/14/2020 TECHNIQUE: Frontal view of the chest was obtained. FINDINGS: The lung bodies. Cardiomediastinal silhouette is enlarged. Blunting of the left costophrenic sulcus. No pneumothorax. XR/XR chest 1V IMPRESSION: Limited exam. Low lung volumes. Blunting of left costophrenic sulcus could reflect a small effusion. Stable enlarged cardiac mediastinal silhouette.
[2020-10-29 17:00] VITALS: BP 128/89; PULSE 104; RESP 24; TEMP 37.1; O2SAT 97; BMI 57.3
--- NOTE | 2020-10-29 17:43 | PC.NURSE ---
Patient up to bedside commode without assistance. Pt transferred self back to bed after voiding. No shortness of breath during movement and position change. Pt did complain of feeling like the room was spinning
--- NOTE | 2020-10-29 18:05 | ECG_ITS ---
Test Reason : DIZZINESS Blood Pressure : / mmHG Vent. Rate : 104 BPM Atrial Rate : 104 BPM P-R Int : 166 ms QRS Dur : 078 ms QT Int : 386 ms P-R-T Axes : 053 110 099 degrees QTc Int : 507 ms Sinus tachycardia Left posterior fascicular block Nonspecific ST abnormality Abnormal ECG When compared with ECG of 12-APR-2020 00:29, No significant change was found Referred By: Corey Alcaraz Electronically Signed By:Tr Cai
--- NOTE | 2020-10-29 18:07 | ED.GENADULT ---
HPI - General Adult General Chief complaint: Dizziness Stated complaint: dizziness Time Seen by Provider: 10/29/20 18:05 Source: patient Limitations: no limitations History of Present Illness HPI narrative: This is a 45-year-old female with history of pulmonary embolism requiring which she describes as ?open heart surgery and ?several years ago, currently on Coumadin, who had noted that her pulse oximetry seemed lower than usual today. She usually requires oxygen at times, especially with exertion today noted that her pulse ox was in the upper 80s on room air, where as it is usually in the 90s. The patient also notes that when she stands up she feels like the room is spinning. She denies any headache. She denies any chest pain. She has chronic shortness of breath, also notes that she has asthma. She last took her albuterol this morning. She denies abdominal pain. She denies any new pain or swelling in her extremities. She did have a right ankle fracture to her right ankle in early September and has an ortho boot on.denies any ear pain, does feel like she has a buzzing sound in her ears at times Related Data Home Medications Medication Instructions Recorded Confirmed albuterol sulfate 2.5 mg INHALATION QID PRN 12/26/19 07/22/20 albuterol sulfate 90 mcg/actuation 2 puff INHALATION Q4-6H PRN 12/26/19 07/22/20 aerosol inhaler (ProAir HFA) epinephrine 0.3 mg/0.3 mL 0.3 mg IM NEEDED PRN 12/26/19 07/22/20 injection, auto-injector (EpiPen 2-Mykel) lisinopril 5 mg tablet 5 mg PO DAILY 12/26/19 07/22/20 medroxyprogesterone 10 mg tablet 20 mg PO DAILY 12/26/19 07/22/20 (Provera) metoprolol succinate 50 mg 50 mg PO DAILY 12/26/19 07/22/20 tablet,extended release 24 hr omeprazole 20 mg capsule,delayed 20 mg PO DAILY 12/26/19 07/22/20 release trazodone 50 mg tablet 50 mg PO BEDTIME PRN 12/26/19 07/22/20 atorvastatin 20 mg tablet 20 mg PO DAILY 04/07/20 07/22/20 clonazepam 1 mg tablet 0.5 tab PO DAILY PRN 04/07/20 07/22/20 levothyroxine 75 mcg tablet 75 mcg PO DAILY 04/07/20 07/22/20 loratadine 10 mg tablet 10 mg PO DAILY 04/07/20 07/22/20 metformin 1,000 mg tablet 1,000 mg PO BID 04/07/20 07/22/20 warfarin 5 mg tablet 10 mg PO DIRECTED 04/07/20 07/22/20 blood sugar diagnostic #10 ea 05/06/20 07/22/20 sertraline 100 mg tablet 100 mg PO tab 05/06/20 07/22/20 Previous Rx's Medication Instructions Recorded acetaminophen 500 mg tablet 500 mg PO Q6H PRN #20 tab 05/06/20 (Tylenol Extra Strength) cyclobenzaprine 5 mg tablet 5 mg PO Q8H PRN 5 Days #14 tab 05/06/20 lidocaine 5 % topical patch 1 patch TOPICAL DAILY PRN #30 ea 05/06/20 (Lidoderm) MDD remove after 12 hours metoclopramide HCl 10 mg tablet 10 mg PO Q6H PRN #14 tab 05/15/20 (Reglan) furosemide 20 mg tablet (Lasix) 20 mg PO QAM #30 tab 07/14/20 dulaglutide 3 mg/0.5 mL 3 mg SUBCUT QWEEK 28 Days #2 ml 07/22/20 subcutaneous pen injector (Trulicity) insulin glargine U-300 conc 300 45 unit SUBCUT BEDTIME 30 Days #6 07/22/20 unit/mL (3 mL) subcutaneous pen ml (Toujeo Max U-300 SoloStar) insulin lispro 100 unit/mL See Rx Instructions SUBCUT TID 30 07/22/20 subcutaneous pen (Humalog Kwik Days #15 ml (U-100) Insulin) flash glucose sensor (FreeStyle 1 ea TOPICAL Q2W #2 kit 08/26/20 Shelby 14 Day Sensor) Allergies Allergy/AdvReac Type Severity Reaction Status Date / Time Penicillins [PENICILLINS] Allergy Intermediate HIVES Verified 09/26/20 21:54 egg [Egg] Allergy Mild SWELLING Verified 09/26/20 21:54 aspirin Allergy Unknown Unknown Verified 09/26/20 21:54 bee pollen [BEE STINGS] Allergy Unknown UNKNOWN Verified 09/26/20 21:54 lactose [LACTOSE] Allergy Unknown UNKNOWN Verified 09/26/20 21:54 latex [LATEX] Allergy Unknown HIVES Verified 09/26/20 21:54 oxycodone Allergy Unknown Unknown Verified 09/26/20 21:54 peanut [PEANUT] Allergy Unknown UNKNOWN Verified 09/26/20 21:54 penicillin V Allergy Unknown Unknown Verified 09/26/20 21:54 kiwi Allergy Anaphylaxis Verified 09/26/20 21:54 eggs,bees,latex,peanuts Allergy Unknown Unknown Uncoded 07/22/20 11:46 medical tape Allergy Unknown Unknown Uncoded 07/22/20 11:46 TAPE,PLASTIC Allergy Unknown RASH Uncoded 07/22/20 11:46 Review of Systems Review of Systems: Yes all other systems are reviewed and are negative Constitutional: Constitutional: Reports as per HPI and Denies fever(s) Eyes: Eyes: Reports as per HPI and Reports no additional eye complaints ENT: Reports system reviewed and no additional complaints, except as documented, Reports as per HPI, Denies nasal congestion, Denies nasal discharge, Reports disequilibrium (Spinning feeling with standing) and Denies sore throat Cardiovascular: Cardiovascular: Reports as per HPI, Denies chest pain and Denies dyspnea Respiratory: Respiratory: Reports as per HPI, Denies cough and Denies dyspnea Gastrointestinal: Gastrointestinal: Reports as per HPI, Denies abdominal pain, Denies diarrhea and Denies vomiting Genitourinary: Genitourinary: Reports as per HPI, Denies hematuria, Denies urinary frequency and Denies dysuria Musculoskeletal: Musculoskeletal: Reports no additional musculoskeletal complaints and Denies numbness Integumentary/Breasts: Skin/Breast: Reports as per HPI and Denies rash Neurologic: Reports as per HPI, Denies focal weakness, Denies numbness, Denies Sensory deficit (Neuro) and Reports disequilibrium (Spinning feeling with standing) Psychiatric: Psychiatric: Reports no additional psychiatric complaints and Reports as per HPI Endocrine: Endocrine: Reports no additional endocrine complaints and Reports as per HPI Hematologic/Lymphatic: Hematologic/Lymphatic: Reports no additional hematologic/lymphatic complaints, Reports as per HPI and Reports other (No peripheral edema) [facility] Past Medical History Medical History Anxiety Asthma BMI 50.0-59.9, adult Cardiomyopathy CHF (congestive heart failure) Depression Diabetes mellitus, type 2 Diabetes type 2, uncontrolled DVT (deep vein thrombosis) in Essential hypertension Gallstones Hyperlipidemia LDL goal <70 Hypertension Hypothyroidism Irritable bowel Mood disorder ROGERIO (obstructive sleep apnea) Pancreatitis PTSD (post-traumatic stress disorder) Pulmonary embolism Surgical History History of dental surgery History of open heart surgery Hx of hernia repair Hx of removal of cyst Family History Family History Paternal Grandmother Diabetes Social History Social History Household Members: None Housing: Apartment Housing Other:: Has [employer] twice a day. Do you presently have visiting nurse or other home services: Yes Alcohol intake: current Alcohol intake frequency: holidays/special occasions only Patient Tobacco Use Status: Former Tobacco user Use of substances other than those prescribed or required for medical reasons: No Advance Directives: No Advance Directives Information Provided: Yes service: No Sexual orientation: Lesbian/Good/Homosexual Physical Exam Vital Signs: Vital Signs: Last Vital Signs Temp 98.8 F 10/29/20 17:00 Pulse 101 H 10/29/20 18:35 Resp 18 10/29/20 18:35 BP 119/87 10/29/20 18:35 Pulse Ox 98 10/29/20 18:35 Oxygen Flow Rate 2 10/29/20 17:00 Body Mass Index 57.3 Const: Other: Moderately obese General: cooperative, no acute distress and alert Orientation/consciousness: patient oriented x3 HENMT: Head: Yes normal to inspection Eyes: General: appearance normal, both eyes and all related structures Eyelids: Yes eyelids normal Conjunctivae: conjunctivae normal Pupils: Equal, round and reactive pupils present Neck: Neck: Yes normal visual inspection and Yes supple Chest: Chest palpation & inspection: normal inspection of the chest Resp: Effort & Inspection: normal respiratory effort Auscultation: clear to auscultation bilaterally Cardio: Rate: abnormal rate and tachycardic Rhythm: regular rhythm Heart sounds: S1 normal heart sound present, S2 normal heart sound present, no gallops, no murmurs and no rubs GI: Palpation (GI): Soft to palpation, nontender and Other GI palpation findings present (Non-distended) Auscultation: normal bowel sounds Skin: General skin exam: no rashes or lesions noted Neuro: General: patient oriented x3, no focal motor deficits and CN's II-XI intact bilaterally Cranial nerves: Yes Equal, round and reactive pupils present Cognition (Neuro): normal cognition Motor exam (neuro): 5/5 motor strength present throughout Sensory Exam: No Sensory deficit (Neuro) Extrem: Other: No pitting edema General: Yes normal to inspection and Yes no pedal edema Psych: Appearance: grossly normal Affect: normal affect Medical Decision Making MDM Narrative Medical decision making narrative: Patient with complaint of a low pulse ox, was noted to be tachycardic. Pulse oximetry was normal on oxygen but lower than her usual level, for the patient. Patient is on Coumadin for prior severe pulmonary embolism requiring cardiothoracic intervention. Patient states she has been compliant with her Coumadin, typically takes it at night. She states that she is due to have her INR checked again tomorrow. I explained to her that it takes a few days before changing does affect the INR, and advised her to increase her dose tonight to 10 mg, doubling it tonight. Patient also complained of a feeling of vertigo but had improvement with IV fluids and Ativan and Antivert. Lab Data Result diagrams: 10/29/20 18:05 10/29/20 18:05 Labs: Lab Results 10/29/20 10/29/20 10/29/20 Range/Units 17:48 18:05 18:05 WBC 9.4 (4.8-10.8) X10*3/uL RBC 4.80 (4.20-5.50) X10*6/uL Hgb 11.6 L (12.0-16.0) g/dl Hct 39.0 (37-47) % MCV 81.3 (80-98) fL MCH 24.2 L (27.0-33.0) pg MCHC 29.7 L (31.0-35.0) g/dl RDW 20.3 H (11.0-16.0) % Plt Count 293 (160-400) X10*3/uL MPV 10.6 (9.4-12.3) fL Immature Gran % (Auto) 0.3 (0.0-0.4) % Neut % (Auto) 67.6 (45-73) % Lymph % (Auto) 24.5 (20-40) % Mccreary % (Auto) 5.5 (2-11) % Eos % (Auto) 1.6 (0-4) % Baso % (Auto) 0.5 (0-2) % Lymph # (Auto) 2.3 (1.2-4.9) X10*3/uL Mccreary # (Auto) 0.5 (0.1-1.2) X10*3/uL Eos # (Auto) 0.2 (0.0-0.4) X10*3/uL Baso # (Auto) 0.1 (0.0-0.2) X10*3/uL Abs Immat Gran (auto) 0.03 (0.00-0.03) X10*3/uL Absolute Neuts (auto) 6.4 (2.0-8.3) X10*3/uL Absolute Nucleated RBC 0.000 (0.0-0.012) X10*3/uL Nucleated RBC % (auto) 0.0 (0.0-0.2) /100WBC PT 18.7 H (9.9-13.0) SEC INR 1.6 H (0.9-1.1) APTT 40.4 H (24.1-38.0) SEC Sodium (135-145) mmol/L Potassium (3.3-5.1) mmol/L Chloride (96-108) mmol/L Carbon Dioxide (22-29) mmol/L Anion Gap (12-20) BUN (9-16) mg/dL Creatinine (0.5-1.4) mg/dL Estim Creat Clear Calc Estimated GFR Random Glucose (60-115) mg/dL Calcium (8.4-10.2) mg/dL Total Bilirubin (0.0-1.0) mg/dL AST (5-31) U/L ALT (0-31) U/L Alkaline Phosphatase (39-117) U/L Total Protein (6.5-8.0) g/dL Albumin (3.5-5.0) g/dL Urine Color STRAW Urine Appearance CLEAR Urine pH 6.0 (5.0-8.0) Ur Specific Weston <= 1.005 (1.005-1.025) Urine Protein NEG (NEG-TRACE) MG/DL Urine Glucose (UA) >=1000 H (NEG) MG/DL Urine Ketones NEG (NEG) MG/DL Urine Blood NEG (NEG) Urine Nitrite NEG (NEG) Ur Leukocyte Esterase NEG (NEG) Urine RBC 0-2 (0) /HPF Urine WBC 0-2 (0-4) /HPF Ur Squamous Epith Cells TRACE /LPF Urine Bacteria TRACE /LPF 10/29/20 Range/Units 18:05 WBC (4.8-10.8) X10*3/uL RBC (4.20-5.50) X10*6/uL Hgb (12.0-16.0) g/dl Hct (37-47) % MCV (80-98) fL MCH (27.0-33.0) pg MCHC (31.0-35.0) g/dl RDW (11.0-16.0) % Plt Count (160-400) X10*3/uL MPV (9.4-12.3) fL Immature Gran % (Auto) (0.0-0.4) % Neut % (Auto) (45-73) % Lymph % (Auto) (20-40) % Mccreary % (Auto) (2-11) % Eos % (Auto) (0-4) % Baso % (Auto) (0-2) % Lymph # (Auto) (1.2-4.9) X10*3/uL Mccreary # (Auto) (0.1-1.2) X10*3/uL Eos # (Auto) (0.0-0.4) X10*3/uL Baso # (Auto) (0.0-0.2) X10*3/uL Abs Immat Gran (auto) (0.00-0.03) X10*3/uL Absolute Neuts (auto) (2.0-8.3) X10*3/uL Absolute Nucleated RBC (0.0-0.012) X10*3/uL Nucleated RBC % (auto) (0.0-0.2) /100WBC PT (9.9-13.0) SEC INR (0.9-1.1) APTT (24.1-38.0) SEC Sodium 138 (135-145) mmol/L Potassium 5.0 (3.3-5.1) mmol/L Chloride 100 (96-108) mmol/L Carbon Dioxide 27 (22-29) mmol/L Anion Gap 16 (12-20) BUN 13 (9-16) mg/dL Creatinine 1.13 (0.5-1.4) mg/dL Estim Creat Clear Calc 101.3 Estimated GFR 53 Random Glucose 444 H* (60-115) mg/dL Calcium 8.5 D (8.4-10.2) mg/dL Total Bilirubin 0.4 (0.0-1.0) mg/dL AST 25 D (5-31) U/L ALT 31 (0-31) U/L Alkaline Phosphatase 84 (39-117) U/L Total Protein 7.0 (6.5-8.0) g/dL Albumin 3.6 (3.5-5.0) g/dL Urine Color Urine Appearance Urine pH (5.0-8.0) Ur Specific Weston (1.005-1.025) Urine Protein (NEG-TRACE) MG/DL Urine Glucose (UA) (NEG) MG/DL Urine Ketones (NEG) MG/DL Urine Blood (NEG) Urine Nitrite (NEG) Ur Leukocyte Esterase (NEG) Urine RBC (0) /HPF Urine WBC (0-4) /HPF Ur Squamous Epith Cells /LPF Urine Bacteria /LPF Imaging Data CT angio chest: Radiologist's impression: [place] [id number] CT Scan Report Signed Patient: Anahy Mccann MR#: [id number] : 1975 Acct:[id number] Age/Sex: 45 / F ADM Date: 10/29/20 Loc: .ED Attending Dr: Ordering Physician: Corey Alcaraz MD Date of Service: 10/29/20 Procedure(s): CT angio chest PE protocol Accession Number(s): [id number] cc: Corey Alcaraz MD~ EXAMINATION: CT ANGIOGRAM OF THE CHEST WITH AND WITHOUT CONTRAST (CT PULMONARY ANGIOGRAM FOR PE) CLINICAL INFORMATION: Reason for Exam low pulsox, tachy, h/o PE INR non therapeutic COMPARISON: None? TECHNIQUE: Prior to contrast administration, noncontrast localization images were obtained. ? Subsequently, multidetector volumetric imaging was performed from the thoracic inlet to below the diaphragms following the administration of 80 mL Omnipaque 350 intravenous contrast. No contrast reaction reported Sagittal, coronal, and MIP oblique sagittal reformatted images were obtained on the CT workstation, uploaded to PACS, and reviewed. This CT examination was performed using dose optimization techniques as appropriate, variously including the following: *Automated exposure control *Adjustment of mA and/or kV according to patient size (this includes techniques or standardized protocols for targeted exams where dose is matched to indication/reason for exam; i.e. extremities or head) *Use of iterative reconstruction technique Total exam dose-length product 591 mGy-cm FINDINGS: QUALITY OF STUDY/CONTRAST BOLUS: Suboptimal due to body habitus. PULMONARY ARTERIES: There is no central or lobar pulmonary embolism. Limited evaluation of segmental and subsegmental branches.? THORACIC AORTA: No aneurysm or dissection. LUNG: The central airways are patent. Limited evaluation of the lung parenchyma due to artifact. Subtle groundglass appearance of the lungs likely associated with atelectasis and low lung volumes. No dense consolidation. No pulmonary nodule identified. PLEURA: No pleural effusion or pneumothorax. MEDIASTINUM: Prominent heart size.? No pericardial effusion.? No hilar or mediastinal lymphadenopathy.? No evidence of septal bowing or right heart strain. CHEST WALL/AXILLA: No axillary or internal mammary lymphadenopathy. OSSEOUS STRUCTURES: No acute or suspicious osseous abnormality. Status post median sternotomy. UPPER ABDOMEN: There is reflux of contrast into the hepatic veins to suggest elevated right heart pressures. Gallstones are noted. CT/CT angio chest PE protocol IMPRESSION: Study is limited due to body habitus and motion. No pulmonary embolism is identified. ? Reflux of contrast into the IVC suggesting elevated right heart pressures. The heart is prominent. ? VTE: negative ECG Data Attestation: I personally reviewed and interpreted this ECG as follows: Prior ECG tracings: available for review Interpretation: Sinus tachycardia with a rate of 104. Left posterior fascicular block. Right axis deviation. EKG appears similar to 1 dated 04/12/2020, except for the tachycardia, which is new. Discharge Plan Discharge Clinical Impression: Tachycardia, Hypoxia, Subtherapeutic international normalized ratio (INR) Patient Disposition: Home, Self-Care Instructions: Dizziness (ED), Dyspnea (ED) Additional Instructions: Double your Coumadin dosed today and tomorrow. Follow up to have your INR checked again as scheduled tomorrow and have your treating physician make further recommendations as to the dosage. Return for any new or worsened symptoms. Prescriptions: No Action Joey Galvane 14 Day Sensor Kit 1 ea topical Q2W Qty: 2 RF: 11 albuterol sulfate 2.5 mg /3 mL (0.083 %) Solution For Nebulization 2.5 mg INHALATION QID PRN (Reason: Allergic Reaction) RF: 0 epinephrine [EpiPen 2-Mykel] 0.3 mg/0.3 mL Auto-Injector 0.3 mg IM NEEDED PRN (Reason: SEVERE ALLERGIC REACTION) RF: 0 medroxyprogesterone [Provera] 10 mg Tablet 20 mg PO DAILY RF: 0 trazodone 50 mg Tablet 50 mg PO BEDTIME PRN (Reason: Sleep) RF: 0 metoprolol succinate 50 mg Tablet Extended Release 24 Hr 50 mg PO DAILY RF: 0 omeprazole 20 mg Capsule,Delayed Release(Dr/Ec) 20 mg PO DAILY RF: 0 lisinopril 5 mg Tablet 5 mg PO DAILY RF: 0 albuterol sulfate [ProAir HFA] 90 mcg/actuation Hfa Aerosol Inhaler 2 puff INHALATION Q4-6H PRN (Reason: COUGH/WHEEZE) RF: 0 atorvastatin 20 mg tablet 20 mg PO DAILY RF: 0 clonazepam 1 mg tablet 0.5 tab PO DAILY PRN (Reason: anxiety) RF: 0 levothyroxine 75 mcg tablet 75 mcg PO DAILY RF: 0 loratadine 10 mg tablet 10 mg PO DAILY RF: 0 metformin 1,000 mg tablet 1,000 mg PO BID RF: 0 warfarin 5 mg tablet 10 mg PO DIRECTED RF: 0 acetaminophen [Tylenol Extra Strength] 500 mg tablet 500 mg PO Q6H PRN (Reason: pain or fever) Qty: 20 RF: 0 cyclobenzaprine 5 mg tablet 5 mg PO Q8H PRN (Reason: pain (scale score 7-10)) 5 Days Qty: 14 RF: 0 lidocaine [Lidoderm] 5 % adhesive patch,medicated 1 patch topical DAILY MDD remove after 12 hours PRN (Reason: pain) Qty: 30 RF: 0 metoclopramide HCl [Reglan] 10 mg tablet 10 mg PO Q6H PRN (Reason: nausea and vomiting) Qty: 14 RF: 0 furosemide [Lasix] 20 mg tablet 20 mg PO QAM Qty: 30 RF: 0 sertraline 100 mg tablet 100 mg PO RF: 0 (DME) FreeStyle Lite Strips Strip See Rx Instructions strip .ROUTE .MEDSUPPLY Qty: 10 RF: 0 Toujeo Max U-300 SoloStar 300 unit/mL (3 mL) insulin pen 45 unit subcut BEDTIME 30 Days Qty: 6 RF: 3 insulin lispro [Humalog KwikPen Insulin] 100 unit/mL insulin pen See Rx Instructions subcut TID 30 Days Qty: 15 RF: 3 Trulicity 3 mg/0.5 mL pen injector 3 mg subcut QWEEK 28 Days Qty: 2 RF: 3
[2020-10-29 18:17] LABS: MANUAL DIFF FLAG NO
[2020-10-29 18:18] LABS: Glucose Urine UA >=1000 MG/DL (NEG); Leukocyte Esterase Urine NEG (NEG); Nitrite Urine NEG (NEG); Specific Gravity - Urine <= 1.005 (1.005-1.025); Urine Blood NEG (NEG); Urine Ketones NEG (NEG); Urine Protein NEG (NEG-TRACE)
[2020-10-29 18:19] LABS: Appearance Urine CLEAR; Color Urine STRAW
[2020-10-29 18:19] LABS: Basophils Absolute Auto 0.1 X10*3/uL (0.0-0.2); Basophils Percent Auto 0.5 % (0-2); Eosinophils Absolute Auto 0.2 X10*3/uL (0.0-0.4); Eosinophils Percent Auto 1.6 % (0-4); Hemoglobin 11.6 g/dl (12.0-16.0); Imm Gran Abs Auto 0.03 X10*3/uL (0.00-0.03); Imm Gran Pct Auto 0.3 % (0.0-0.4); Lymphocytes Absolute Auto 2.3 X10*3/uL (1.2-4.9); Lymphocytes Percent Auto 24.5 % (20-40); Mean Corpuscular HGB Conc 29.7 g/dl (31.0-35.0); Mean Corpuscular Hemoglobin 24.2 pg (27.0-33.0); Mean Corpuscular Volume 81.3 fL (80-98); Mean Platelet Volume 10.6 fL (9.4-12.3); Monocytes Absolute Auto 0.5 X10*3/uL (0.1-1.2); Monocytes Percent Auto 5.5 % (2-11); Neutrophils Absolute Auto 6.4 X10*3/uL (2.0-8.3); Neutrophils Percent Auto 67.6 % (45-73); Platelet Count 293 X10*3/uL (160-400); Red Cell Distribution Width 20.3 % (11.0-16.0); White Blood Count 9.4 X10*3/uL (4.8-10.8)
[2020-10-29 18:24] LABS: INTERNATIONAL NORM RATIO 1.6 (0.9-1.1); Prothrombin Time 18.7 SEC (9.9-13.0)
[2020-10-29 18:26] LABS: Partial Thromboplastin Time 40.4 SEC (24.1-38.0)
[2020-10-29 18:27] LABS: Bacteria Urine TRACE /LPF; RBC Urine 0-2 /HPF (0); Squamous Epithelial Cell Urine TRACE /LPF; WBC Urine 0-2 /HPF (0-4)
[2020-10-29 18:35] VITALS: BP 119/87; PULSE 101; RESP 18; O2SAT 98
--- NOTE | 2020-10-29 18:40 | PC.NURSE ---
Patient is alert and oriented. No distress noted. Pt is eating ice chips without difficulty
[2020-10-29 19:11] LABS: Alanine Aminotransferase 31 U/L (0-31); Albumin Level 3.6 g/dL (3.5-5.0); Alkaline Phosphatase 84 U/L (39-117); Anion Gap 16 (12-20); Aspartate Amino Transferase 25 U/L (5-31); Bilirubin Total 0.4 mg/dL (0.0-1.0); Blood Urea Nitrogen 13 mg/dL (9-16); Calcium 8.5 mg/dL (8.4-10.2); Carbon Dioxide 27 mmol/L (22-29); Chloride 100 mmol/L (96-108); Creatinine Clr Calc Pharmacy 101.3; Estimated Glomerular Filt Rate 53; Glucose Random 444 mg/dL (60-115); Sodium 138 mmol/L (135-145)
[2020-10-29] MEDS: Meclizine HCl 25 MG TABLET PO (19:34)
[2020-10-29] MEDS: LORazepam 2 MG/ML VIAL 1 MG IVPUSH (19:34)
--- NOTE | 2020-10-29 19:44 | PC.NURSE ---
#20G IV PLACED TO RAC FOR CT. PT AWAITING FOR CT. PT MEDICATED PER EMAR FOR DIZZINESS.
[2020-10-29] MEDS: iohexoL 350 MG/ML 100 ML INFUS..BTL IV (20:07)
[2020-10-29 21:24] VITALS: BP 156/85; PULSE 101; RESP 16; TEMP 36.8; O2SAT 96
== END 2020-10-29 23:14 | disposition home or self-care (01) ==
PROVIDERS: Emergency Provider Emergency Medicine; PCP Internal Medicine
DX: R00.0 Tachycardia, unspecified (principal); R09.02 Hypoxemia; D68.8 Other specified coagulation defects; R42 Dizziness and giddiness; R06.02 Shortness of breath; E11.9 Type 2 diabetes mellitus without complications; I10 Essential (primary) hypertension; E66.9 Obesity, unspecified; Z68.43 Body mass index [BMI] 50.0-59.9, adult; J45.909 Unspecified asthma, uncomplicated; Z86.711 Personal history of pulmonary embolism; Z79.01 Long term (current) use of anticoagulants; Z79.4 Long term (current) use of insulin
CPT/HCPCS: 36415; 71045; 71275; 80053; 81001; 85025; 85610; 85730; 93005; 96374; 99285; J2060; Q9967

== ENCOUNTER 2020-11-01 13:14 | Emergency (ER) | payer OTHER, SELFPAY ==
--- NOTE | ~2020-11-01 | XR_ITS ---
EXAMINATION: XR ANKLE, RIGHT CLINICAL INFORMATION: Twisted injury COMPARISON: None TECHNIQUE: AP, lateral, and mortise views of the right ankle. FINDINGS: The bones and soft tissues are normal. No fracture. Alignment is anatomic. Joint spaces are maintained. No joint effusion. XR/XR ankle RT min 3V IMPRESSION: No fracture.
[2020-11-01 13:21] VITALS: BP 133/76; PULSE 95; RESP 20; TEMP 36.8; O2SAT 97; BMI 53.2
--- NOTE | 2020-11-01 13:40 | ED.LOWEXIN ---
HPI - Extremity Injury (Lower) General Chief Complaint: Extremity Injury, Lower Stated Complaint: ankle pain Time Seen by Provider: 11/01/20 13:19 Source: patient and EMS Mode of arrival: EMS Limitations: no limitations History of Present Illness HPI Narrative: 45 yo female with multiple comorbidities presenting with acute right ankle pain since she twisted it this morning. She reports a right ankle bone chip that was identified via CT scan by her PCP at [place]. She had an injury early September, seen here with normal XR's. She has been in a walking boot since. She has an appointment with her Orthopedist on Tuesday. complaint: ankle injury Onset (ago): hour(s) Injury: Right: ankle Type of Injury: inversion Place: home Severity: mild Relieving factors: nothing Exacerbating factors: weight bearing, movement and palpation Associated symptoms: swelling Other symptoms: none Treatments prior to arrival: cold therapy Related Data Home Medications Medication Instructions Recorded Confirmed albuterol sulfate 2.5 mg INHALATION QID PRN 12/26/19 07/22/20 albuterol sulfate 90 mcg/actuation 2 puff INHALATION Q4-6H PRN 12/26/19 07/22/20 aerosol inhaler (ProAir HFA) epinephrine 0.3 mg/0.3 mL 0.3 mg IM NEEDED PRN 12/26/19 07/22/20 injection, auto-injector (EpiPen 2-Mykel) lisinopril 5 mg tablet 5 mg PO DAILY 12/26/19 07/22/20 medroxyprogesterone 10 mg tablet 20 mg PO DAILY 12/26/19 07/22/20 (Provera) metoprolol succinate 50 mg 50 mg PO DAILY 12/26/19 07/22/20 tablet,extended release 24 hr omeprazole 20 mg capsule,delayed 20 mg PO DAILY 12/26/19 07/22/20 release trazodone 50 mg tablet 50 mg PO BEDTIME PRN 12/26/19 07/22/20 atorvastatin 20 mg tablet 20 mg PO DAILY 04/07/20 07/22/20 clonazepam 1 mg tablet 0.5 tab PO DAILY PRN 04/07/20 07/22/20 levothyroxine 75 mcg tablet 75 mcg PO DAILY 04/07/20 07/22/20 loratadine 10 mg tablet 10 mg PO DAILY 04/07/20 07/22/20 metformin 1,000 mg tablet 1,000 mg PO BID 04/07/20 07/22/20 warfarin 5 mg tablet 10 mg PO DIRECTED 04/07/20 07/22/20 blood sugar diagnostic #10 ea 05/06/20 07/22/20 sertraline 100 mg tablet 100 mg PO tab 05/06/20 07/22/20 Previous Rx's Medication Instructions Recorded acetaminophen 500 mg tablet 500 mg PO Q6H PRN #20 tab 05/06/20 (Tylenol Extra Strength) cyclobenzaprine 5 mg tablet 5 mg PO Q8H PRN 5 Days #14 tab 05/06/20 lidocaine 5 % topical patch 1 patch TOPICAL DAILY PRN #30 ea 05/06/20 (Lidoderm) MDD remove after 12 hours metoclopramide HCl 10 mg tablet 10 mg PO Q6H PRN #14 tab 05/15/20 (Reglan) furosemide 20 mg tablet (Lasix) 20 mg PO QAM #30 tab 07/14/20 dulaglutide 3 mg/0.5 mL 3 mg SUBCUT QWEEK 28 Days #2 ml 07/22/20 subcutaneous pen injector (Trulicity) insulin glargine U-300 conc 300 45 unit SUBCUT BEDTIME 30 Days #6 07/22/20 unit/mL (3 mL) subcutaneous pen ml (Toujeo Max U-300 SoloStar) insulin lispro 100 unit/mL See Rx Instructions SUBCUT TID 30 07/22/20 subcutaneous pen (Humalog Kwik Days #15 ml (U-100) Insulin) flash glucose sensor (FreeStyle 1 ea TOPICAL Q2W #2 kit 08/26/20 [place] 14 Day Sensor) Allergies Allergy/AdvReac Type Severity Reaction Status Date / Time Penicillins [PENICILLINS] Allergy Intermediate HIVES Verified 09/26/20 21:54 egg [Egg] Allergy Mild SWELLING Verified 09/26/20 21:54 aspirin Allergy Unknown Unknown Verified 09/26/20 21:54 bee pollen [BEE STINGS] Allergy Unknown UNKNOWN Verified 09/26/20 21:54 lactose [LACTOSE] Allergy Unknown UNKNOWN Verified 09/26/20 21:54 latex [LATEX] Allergy Unknown HIVES Verified 09/26/20 21:54 oxycodone Allergy Unknown Unknown Verified 09/26/20 21:54 peanut [PEANUT] Allergy Unknown UNKNOWN Verified 09/26/20 21:54 penicillin V Allergy Unknown Unknown Verified 09/26/20 21:54 kiwi Allergy Anaphylaxis Verified 09/26/20 21:54 eggs,bees,latex,peanuts Allergy Unknown Unknown Uncoded 07/22/20 11:46 medical tape Allergy Unknown Unknown Uncoded 07/22/20 11:46 TAPE,PLASTIC Allergy Unknown RASH Uncoded 07/22/20 11:46 Review of Systems Review of Systems: Constitutional: No Fever, No Chills Gastrointestinal: No Nausea, No Vomiting Musculoskeletal: + joint pain, No Myalgias Skin: No Skin Lesions, No rash Neuro: No Weakness, No Numbness Heme/Lymph: No Bruising PMFSH Past Medical History Medical History Anxiety Asthma BMI 50.0-59.9, adult Cardiomyopathy CHF (congestive heart failure) Depression Diabetes mellitus, type 2 Diabetes type 2, uncontrolled DVT (deep vein thrombosis) in Essential hypertension Gallstones Hyperlipidemia LDL goal <70 Hypertension Hypothyroidism Irritable bowel Mood disorder RGOERIO (obstructive sleep apnea) Pancreatitis PTSD (post-traumatic stress disorder) Pulmonary embolism Surgical History History of dental surgery History of open heart surgery Hx of hernia repair Hx of removal of cyst Family History Family History Paternal Grandmother Diabetes Social History Social History Household Members: None Housing: Apartment Housing Other:: Has DIRECTOR [employer] TERM [employer] twice a day. Do you presently have visiting nurse or other home services: Yes Alcohol intake: current Alcohol intake frequency: holidays/special occasions only Patient Tobacco Use Status: Former Tobacco user Advance Directives: No Advance Directives Information Provided: No Patient : No service: No Sexual orientation: Lesbian/Good/Homosexual Physical Exam Vital Signs: Vital Signs: Last Vital Signs Temp 98.2 F 11/01/20 13:21 Pulse 95 11/01/20 13:21 Resp 20 11/01/20 13:21 BP 133/76 11/01/20 13:21 Pulse Ox 97 11/01/20 13:21 Oxygen Flow Rate 3 11/01/20 13:21 Body Mass Index 53.2 Appearance: Alert. Oriented X3. No acute distress. On home O2 HEENT: normal inspection CVS: Normal heart rate and rhythm. Pulses normal. Respiratory: No respiratory distress. On oxygen. Speaking in complete sentences. Skin: Skin warm and dry. Normal skin color. Normal skin turgor. No rashes. Extremities: right ankle with edema above and below medial malleolus without ecchymosis, moderate tenderness. NV intact distally. NO calf tenderness Neuro: Oriented X 3. No motor deficit. No sensory deficit. Gait not tested due to pain. Course Course Course Narrative: 45 y/o female presenting with right ankle pain after minor inversion injury. Injury occurred while wearing her walking boot. XR is normal. She was instructed to be non-weight bearing until seen by Orthopedics given her pain. No role in repeating CT scan at this time. She is stable for d/c home, NWB for now with Tylenol around the clock, ice and elevation. Patient agrees with plan. Ambulance booked home. Discharge Plan Discharge Clinical Impression: Ankle pain Qualifiers: Chronicity: acute Laterality: right Qualified Code(s): M25.571 - Pain in right ankle and joints of right foot Patient Disposition: Home, Self-Care Instructions: Ankle Strain (ED) Additional Instructions: Your x-ray today was normal. You most likely just strained the ligaments in your ankle when you twisted it this morning. Stay off of your right foot and use crutches until you are seen by Orthopedics on Tuesday. Keep elevated when possible. Elevate when possible. Take Tylenol around the clock. If you develop new or worsening symptoms call 911 or come back to the ER for further evaluation. Prescriptions: No Action RedTail Solutionse 14 Day Sensor Kit 1 ea topical Q2W Qty: 2 RF: 11 albuterol sulfate 2.5 mg /3 mL (0.083 %) Solution For Nebulization 2.5 mg INHALATION QID PRN (Reason: Allergic Reaction) RF: 0 epinephrine [EpiPen 2-Mykel] 0.3 mg/0.3 mL Auto-Injector 0.3 mg IM NEEDED PRN (Reason: SEVERE ALLERGIC REACTION) RF: 0 medroxyprogesterone [Provera] 10 mg Tablet 20 mg PO DAILY RF: 0 trazodone 50 mg Tablet 50 mg PO BEDTIME PRN (Reason: Sleep) RF: 0 metoprolol succinate 50 mg Tablet Extended Release 24 Hr 50 mg PO DAILY RF: 0 omeprazole 20 mg Capsule,Delayed Release(Dr/Ec) 20 mg PO DAILY RF: 0 lisinopril 5 mg Tablet 5 mg PO DAILY RF: 0 albuterol sulfate [ProAir HFA] 90 mcg/actuation Hfa Aerosol Inhaler 2 puff INHALATION Q4-6H PRN (Reason: COUGH/WHEEZE) RF: 0 atorvastatin 20 mg tablet 20 mg PO DAILY RF: 0 clonazepam 1 mg tablet 0.5 tab PO DAILY PRN (Reason: anxiety) RF: 0 levothyroxine 75 mcg tablet 75 mcg PO DAILY RF: 0 loratadine 10 mg tablet 10 mg PO DAILY RF: 0 metformin 1,000 mg tablet 1,000 mg PO BID RF: 0 warfarin 5 mg tablet 10 mg PO DIRECTED RF: 0 acetaminophen [Tylenol Extra Strength] 500 mg tablet 500 mg PO Q6H PRN (Reason: pain or fever) Qty: 20 RF: 0 cyclobenzaprine 5 mg tablet 5 mg PO Q8H PRN (Reason: pain (scale score 7-10)) 5 Days Qty: 14 RF: 0 lidocaine [Lidoderm] 5 % adhesive patch,medicated 1 patch topical DAILY MDD remove after 12 hours PRN (Reason: pain) Qty: 30 RF: 0 metoclopramide HCl [Reglan] 10 mg tablet 10 mg PO Q6H PRN (Reason: nausea and vomiting) Qty: 14 RF: 0 furosemide [Lasix] 20 mg tablet 20 mg PO QAM Qty: 30 RF: 0 sertraline 100 mg tablet 100 mg PO RF: 0 (DME) FreeStyle Lite Strips Strip See Rx Instructions strip .ROUTE .MEDSUPPLY Qty: 10 RF: 0 Toujeo Max U-300 SoloStar 300 unit/mL (3 mL) insulin pen 45 unit subcut BEDTIME 30 Days Qty: 6 RF: 3 insulin lispro [Humalog KwikPen Insulin] 100 unit/mL insulin pen See Rx Instructions subcut TID 30 Days Qty: 15 RF: 3 Trulicity 3 mg/0.5 mL pen injector 3 mg subcut QWEEK 28 Days Qty: 2 RF: 3 Referrals: Renee Saavedra MD [Primary Care Provider] - 2 days
== END 2020-11-01 15:11 | disposition home or self-care (01) ==
PROVIDERS: Emergency Provider Emergency Medicine Emergency Medical Services; PCP Internal Medicine
DX: M25.571 Pain in right ankle and joints of right foot (principal); E11.9 Type 2 diabetes mellitus without complications; I10 Essential (primary) hypertension; E66.01 Morbid (severe) obesity due to excess calories; E66.9 Obesity, unspecified; Z68.43 Body mass index [BMI] 50.0-59.9, adult; Z79.899 Other long term (current) drug therapy
CPT/HCPCS: 73610; 99283

== ENCOUNTER 2020-11-10 12:44 | Inpatient (IN) | payer OTHER, SELFPAY ==
[2020-11-10 12:48] VITALS: BP 126/88; PULSE 93; O2SAT 92
--- NOTE | 2020-11-10 13:15 | ED_ITS ---
HPI - Psych General Chief Complaint: Psychiatric Symptoms Stated Complaint: si/hi Time Seen by Provider: 11/10/20 13:14 Source: patient Mode of arrival: ambulatory Limitations: no limitations History of Present Illness HPI Narrative: Patient has history of depression borderline personality disorder PTSD hypertension obesity diabetes asthma comes here for increased stresses at home feels suicidal and homicidal she not able to pay the bills and having more stress lately been here frequently for similar situation. At this time patient denies any suicidal ideation no substance abuse Related Data Home Medications Medication Instructions Recorded Confirmed albuterol sulfate 2.5 mg INHALATION QID PRN 12/26/19 11/10/20 albuterol sulfate 90 mcg/actuation 2 puff INHALATION Q4-6H PRN 12/26/19 11/10/20 aerosol inhaler (ProAir HFA) lisinopril 5 mg tablet 5 mg PO DAILY 12/26/19 11/10/20 medroxyprogesterone 10 mg tablet 10 mg PO DAILY 12/26/19 11/10/20 (Provera) metoprolol succinate 50 mg 50 mg PO DAILY 12/26/19 11/10/20 tablet,extended release 24 hr omeprazole 20 mg capsule,delayed 20 mg PO DAILY 12/26/19 11/10/20 release trazodone 50 mg tablet 50 mg PO BEDTIME PRN 12/26/19 11/10/20 atorvastatin 20 mg tablet 20 mg PO DAILY 04/07/20 11/10/20 clonazepam 1 mg tablet 0.5 tab PO BID PRN 04/07/20 11/10/20 levothyroxine 75 mcg tablet 75 mcg PO DAILY 04/07/20 11/10/20 loratadine 10 mg tablet 10 mg PO DAILY 04/07/20 11/10/20 metformin 1,000 mg tablet 1,000 mg PO BID 04/07/20 11/10/20 warfarin 5 mg tablet 10 mg PO DAILY 04/07/20 11/10/20 blood sugar diagnostic #10 ea 05/06/20 07/22/20 sertraline 100 mg tablet 150 mg PO DAILY tab 05/06/20 11/10/20 dulaglutide 3 mg/0.5 mL 3 mg SUBCUT FR 11/10/20 11/10/20 subcutaneous pen injector (Trulicity) furosemide 20 mg tablet (Lasix) 20 mg PO DAILY 11/10/20 11/10/20 tramadol 50 mg tablet 1 tab PO Q6H PRN 11/10/20 11/10/20 Previous Rx's Medication Instructions Recorded insulin glargine U-300 conc 300 45 unit SUBCUT BEDTIME 30 Days #6 07/22/20 unit/mL (3 mL) subcutaneous pen ml (Toujeo Max U-300 SoloStar) insulin lispro 100 unit/mL See Rx Instructions SUBCUT TID 30 11/05/20 subcutaneous pen (Humalog KwikPen Days #15 ml (U-100) Insulin) Allergies Allergy/AdvReac Type Severity Reaction Status Date / Time Penicillins [PENICILLINS] Allergy Intermediate HIVES Verified 09/26/20 21:54 egg [Egg] Allergy Mild SWELLING Verified 09/26/20 21:54 aspirin Allergy Unknown Unknown Verified 09/26/20 21:54 bee pollen [BEE STINGS] Allergy Unknown UNKNOWN Verified 09/26/20 21:54 lactose [LACTOSE] Allergy Unknown UNKNOWN Verified 09/26/20 21:54 latex [LATEX] Allergy Unknown HIVES Verified 09/26/20 21:54 oxycodone Allergy Unknown Unknown Verified 09/26/20 21:54 peanut [PEANUT] Allergy Unknown UNKNOWN Verified 09/26/20 21:54 penicillin V Allergy Unknown Unknown Verified 09/26/20 21:54 kiwi Allergy Anaphylaxis Verified 09/26/20 21:54 eggs,bees,latex,peanuts Allergy Unknown Unknown Uncoded 07/22/20 11:46 medical tape Allergy Unknown Unknown Uncoded 07/22/20 11:46 TAPE,PLASTIC Allergy Unknown RASH Uncoded 07/22/20 11:46 Review of Systems Review of Systems: Constitutional : No Fever, No Chills ENT/Mouth : No Ear Pain, No Nasal Congestion, No sore throat Eyes: No Eye Pain, No Swelling, No Redness Cardiovascular : No Chest Pain, No SOB Respiratory : No Cough, No Sputum, No Dyspnea Gastrointestinal : No Nausea, No Vomiting, No Diarrhea, No Hematochezia, No Melena Genitourinary : No Dysuria, No Urinary Frequency, No Hematuria Musculoskeletal : No Myalgias Skin : No Skin Lesions, No rash Neuro : No Weakness, No Numbness, No Paresthesias, No Dizziness, No Headache Psych : positive Anxiety, positive Depression, positive SI/HI Heme/Lymph: No Lymphadenopathy Endocrine : No Polyuria, No Polydipsia Yes all other systems are reviewed and are negative COUNT INCLUDES [facility] Past Medical History Medical History Anxiety Asthma BMI 50.0-59.9, adult Cardiomyopathy CHF (congestive heart failure) Depression Diabetes mellitus, type 2 Diabetes type 2, uncontrolled DVT (deep vein thrombosis) in Essential hypertension Gallstones Hyperlipidemia LDL goal <70 Hypertension Hypothyroidism Irritable bowel Mood disorder ROGERIO (obstructive sleep apnea) Pancreatitis PTSD (post-traumatic stress disorder) Pulmonary embolism Surgical History History of dental surgery History of open heart surgery Hx of hernia repair Hx of removal of cyst Family History Family History Paternal Grandmother Diabetes Social History Social History Household Members: None Housing: Apartment Housing Other:: Has FINISHED [employer] EXAM[employer] twice a day. Do you presently have visiting nurse or other home services: Yes Alcohol intake: former Patient Tobacco Use Status: Former Tobacco user Use of substances other than those prescribed or required for medical reasons: No Advance Directives: No Advance Directives Information Provided: No Patient : No service: No Sexual orientation: Lesbian/Good/Homosexual Physical Exam Vital Signs: Vital Signs: Last Vital Signs Temp 96.3 F L 11/10/20 13:51 Pulse 95 11/10/20 13:51 Resp 15 11/10/20 14:40 BP 118/69 11/10/20 13:51 Pulse Ox 92 11/10/20 13:51 Body Mass Index 53.2 Appearance: Alert. Oriented X3. No acute distress. Obese Eyes: PERRLA, No Nystagmus ENT: Pharynx normal. Oral Mucosa moist Neck: Normal inspection. Neck supple. CVS: Normal heart rate and rhythm. Pulses normal. Respiratory: No respiratory distress. Equal air entry bilateral, no wheezing/rales/rhonchi Abdomen: Soft and nontender. Bowel sounds are present, no mass palpable, no CVA tenderness Skin: Skin warm and dry. Normal skin color. Normal skin turgor. Extremities: No lower extremity edema. No calf tenderness , right foot in boot Psych: Mood stable denies any suicidal ideation or homicidal ideation at this time no hallucination judgment fair Neuro: Oriented X 3. No motor deficit. No sensory deficit.No cerebellar signs , cranial nerves II-XII intact Course Course Course Narrative: Patient with depression/anxiety with multiple stresses at home would like to see crisis for evaluation MDM - Psych Lab Data Labs: Lab Results 11/10/20 11/10/20 11/10/20 Range/Units 13:12 13:12 14:29 Urine Color YELLOW Urine Appearance HAZY Urine pH 6.0 (5.0-8.0) Ur Specific [place] 1.010 (1.005-1.025) Urine Protein TRACE (NEG-TRACE) MG/DL Urine Glucose (UA) NEG (NEG) MG/DL Urine Ketones NEG (NEG) MG/DL Urine Blood NEG (NEG) Urine Nitrite NEG (NEG) Ur Leukocyte Esterase NEG (NEG) Urine RBC 0-2 (0) /HPF Urine WBC 0-2 (0-4) /HPF Ur Squamous Epith Cells TRACE /LPF Urine Bacteria NONE /LPF Urine Opiates Screen Not Detected (Not Detect) Urine Fentanyl Screen Not Detected (Not Detect) Ur Barbiturates Screen Not Detected (Not Detect) Ur Phencyclidine Scrn Not Detected (Not Detect) Ur Amphetamines Screen Not Detected (Not Detect) U Benzodiazepines Scrn Not Detected (Not Detect) Urine Cocaine Screen Not Detected (Not Detect) U Marijuana (THC) Screen Not Detected (Not Detect) COVID-19 ([place]) Negative (Negative) COVID-19 Clin Com See Note Discharge Plan Discharge Clinical Impression: Borderline personality disorder Depression Qualifiers: Depression Type: major depressive disorder Major depression recurrence: recurrent Active/Remission status: currently active Major depression episode severity: moderate Qualified Code(s): F33.1 - Major depressive disorder, recurrent, moderate Prescriptions: No Action insulin lispro [Humalog KwikPen Insulin] 100 unit/mL insulin pen See Rx Instructions subcut TID 30 Days Qty: 15 RF: 3 albuterol sulfate 2.5 mg /3 mL (0.083 %) Solution For Nebulization 2.5 mg INHALATION QID PRN (Reason: Allergic Reaction) RF: 0 medroxyprogesterone [Provera] 10 mg Tablet 10 mg PO DAILY RF: 0 trazodone 50 mg Tablet 50 mg PO BEDTIME PRN (Reason: Sleep) RF: 0 metoprolol succinate 50 mg Tablet Extended Release 24 Hr 50 mg PO DAILY RF: 0 omeprazole 20 mg Capsule,Delayed Release(Dr/Ec) 20 mg PO DAILY RF: 0 lisinopril 5 mg Tablet 5 mg PO DAILY RF: 0 albuterol sulfate [ProAir HFA] 90 mcg/actuation Hfa Aerosol Inhaler 2 puff INHALATION Q4-6H PRN (Reason: COUGH/WHEEZE) RF: 0 atorvastatin 20 mg tablet 20 mg PO DAILY RF: 0 clonazepam 1 mg tablet 0.5 tab PO BID PRN (Reason: anxiety) RF: 0 levothyroxine 75 mcg tablet 75 mcg PO DAILY RF: 0 loratadine 10 mg tablet 10 mg PO DAILY RF: 0 metformin 1,000 mg tablet 1,000 mg PO BID RF: 0 warfarin 5 mg tablet 10 mg PO DAILY RF: 0 tramadol 50 mg tablet 1 tab PO Q6H PRN (Reason: pain) RF: 0 furosemide [Lasix] 20 mg tablet 20 mg PO DAILY RF: 0 Trulicity 3 mg/0.5 mL pen injector 3 mg subcut FR RF: 0 sertraline 100 mg tablet 150 mg PO DAILY RF: 0 (DME) FreeStyle Lite Strips Strip See Rx Instructions strip .ROUTE .MEDSUPPLY Qty: 10 RF: 0 Toujeo Max U-300 SoloStar 300 unit/mL (3 mL) insulin pen 45 unit subcut BEDTIME 30 Days Qty: 6 RF: 3
[2020-11-10 13:19] LABS: Glucose Urine UA NEG (NEG); Leukocyte Esterase Urine NEG (NEG); Nitrite Urine NEG (NEG); Urine Blood NEG (NEG); Urine Ketones NEG (NEG); Urine Protein TRACE MG/DL (NEG-TRACE)
[2020-11-10 13:20] LABS: Appearance Urine HAZY; Color Urine YELLOW
--- NOTE | 2020-11-10 13:46 | MHC.CARE ---
Addendum entered by Zia Webb 11/10/20 13:51: Disregard below note, intended for another file Original Note: [id number] ? Contacted patient via his room phone after 2 prior attempts in the morning to contact him.? Pt was referred to the CARE Team to consult due to elevated anxiety.? Pt reports no hx of mental health diagnosis or baseline anxiety.? Pt does not nor has he been seeing a counselor.? Pt reports no anxiety at present and has not experienced it for approximately a week by his account. Pt reports not being certain what the cause of the anxiety is but suggests it is ?probably because I just want to get out of here?.?
[2020-11-10 13:51] VITALS: BP 118/69; PULSE 95; RESP 20; TEMP 35.7; O2SAT 92; BMI 53.2
[2020-11-10 13:57] LABS: Amphetamine Screen Urine Not Detected (Not Detect); Barbiturates, Urine Not Detected (Not Detect); Benzodiazepines Screen Urine Not Detected (Not Detect); Cannabinoid Screen Urine Not Detected (Not Detect); Cocaine Screen Urine Not Detected (Not Detect); Opiate Screen Urine Not Detected (Not Detect); Phencyclidine Screen Urine Not Detected (Not Detect)
[2020-11-10 14:04] LABS: Fentanyl, urine Not Detected (Not Detect)
[2020-11-10 14:40] VITALS: RESP 15
[2020-11-10] MEDS: oxyCODONE HCl Immed Release 5 MG TABLET 10 MG PO (14:40)
[2020-11-10 14:54] LABS: RBC Urine 0-2 /HPF (0); Squamous Epithelial Cell Urine TRACE /LPF; WBC Urine 0-2 /HPF (0-4)
[2020-11-10 14:59] LABS: COVID-19 Test Negative (Negative)
--- NOTE | 2020-11-10 15:10 | PHA.MEDREC ---
Pharmacy Consult ? Medication Reconciliation Pharmacy has completed the medication reconciliation. No issues to report.
--- NOTE | 2020-11-10 15:33 | ECG_ITS ---
Test Reason : PRE ADMISSION Blood Pressure : / mmHG Vent. Rate : 093 BPM Atrial Rate : 093 BPM P-R Int : 164 ms QRS Dur : 080 ms QT Int : 388 ms P-R-T Axes : 061 104 089 degrees QTc Int : 482 ms Normal sinus rhythm Possible Left atrial enlargement Rightward axis Prolonged QT Abnormal ECG When compared with ECG of 29-OCT-2020 18:33, No significant change was found Referred By: Anjum Donohue Electronically Signed By:MARTIN CASTRO
[2020-11-10 15:54] LABS: MANUAL DIFF FLAG NO
[2020-11-10 15:56] LABS: Basophils Absolute Auto 0.1 X10*3/uL (0.0-0.2); Basophils Percent Auto 0.5 % (0-2); Eosinophils Absolute Auto 0.2 X10*3/uL (0.0-0.4); Eosinophils Percent Auto 1.4 % (0-4); Hematocrit 40.5 % (37-47); Hemoglobin 12.3 g/dl (12.0-16.0); Imm Gran Abs Auto 0.03 X10*3/uL (0.00-0.03); Imm Gran Pct Auto 0.3 % (0.0-0.4); Lymphocytes Absolute Auto 2.6 X10*3/uL (1.2-4.9); Lymphocytes Percent Auto 23.9 % (20-40); Mean Corpuscular HGB Conc 30.4 g/dl (31.0-35.0); Mean Corpuscular Hemoglobin 24.2 pg (27.0-33.0); Mean Corpuscular Volume 79.7 fL (80-98); Mean Platelet Volume 9.9 fL (9.4-12.3); Monocytes Absolute Auto 0.7 X10*3/uL (0.1-1.2); Monocytes Percent Auto 6.3 % (2-11); NRBC Pct Auto 0.3 /100WBC (0.0-0.2); Neutrophils Absolute Auto 7.5 X10*3/uL (2.0-8.3); Neutrophils Percent Auto 67.6 % (45-73); Platelet Count 360 X10*3/uL (160-400); Red Blood Count 5.08 X10*6/uL (4.20-5.50)
--- NOTE | 2020-11-10 16:09 | PC.NURSE ---
Pt being seen by CARE team at this time. Has been ambulatory in department with boot on. States oxycodone helped. Explaining to this RN that life stress related to suing landlord and [employer] controll of personal expenses is leading to SI at home. Denies SI while at ED. Calm and cooperative.
[2020-11-10 16:15] LABS: Anion Gap 15 (12-20); Blood Urea Nitrogen 14 mg/dL (9-16); Calcium 9.9 mg/dL (8.4-10.2); Carbon Dioxide 27 mmol/L (22-29); Chloride 104 mmol/L (96-108); Creatinine Clr Calc Pharmacy 121.4; Estimated Glomerular Filt Rate > 60; Glucose Random 100 mg/dL (60-115); Potassium 4.3 mmol/L (3.3-5.1); Sodium 142 mmol/L (135-145)
[2020-11-10 18:04] LABS: Glucose, Whole Blood 116 mg/dL (60-115)
[2020-11-10] MEDS: Acetaminophen 325 MG TABLET 650 MG PO (18:30)
[2020-11-10 18:50] LABS: INTERNATIONAL NORM RATIO 1.9 (0.9-1.1); Prothrombin Time 22.1 SEC (9.9-13.0)
[2020-11-10] MEDS: Warfarin Sodium 10 MG TABLET PO (19:29)
[2020-11-10 22:27] LABS: Glucose, Whole Blood 129 mg/dL (60-115)
--- NOTE | 2020-11-10 22:28 | PC.NURSE ---
Patient POC was 129 at [phone], M5 RN notified.
[2020-11-10 23:30] VITALS: PULSE 95; O2SAT 93
[2020-11-10] MEDS: Albuterol Sulfate (0.083%) 2.5 MG/3 ML VIAL.NEB INHALE (23:30)
[2020-11-11] MEDS: metFORMIN HCl 1,000 MG TABLET 1000 MG PO ×3 (00:52→22:11)
[2020-11-11] MEDS: Insulin Glargine,Hum.rec.anlog 100 UNIT/ML 10 ML VIAL 36 UNIT SUBCUT ×3 (00:53→22:27)
[2020-11-11 00:54] LABS: Glucose, Whole Blood 204 mg/dL (60-115)
[2020-11-11] MEDS: Acetaminophen 325 MG TABLET 650 MG PO ×3 (01:07→14:26)
[2020-11-11] MEDS: traZODone HCL 50 MG TABLET PO (01:09)
[2020-11-11 01:24] VITALS: BP 107/58; PULSE 82; RESP 16; TEMP 35.9; O2SAT 95
--- NOTE | 2020-11-11 02:04 | PC.ADMIT ---
Pt is a 45 year old female admitted from the ER. Diagnosis: major depressive disorder, current, severe, PTSD, Borderline personality disorder. Pt was admitted for SI/HI with a plan to cut herself. 15minutes check, CV, VSS. Pt Alert and oriented with depressed and irritable mood with congruent affect. hygiene and grooming WNL. During assessment Pt was calm and cooperative. Pt verbalized aggression towards her payee, whom she feels has been mismanaging her finances. Pt endorses SI/HI. Denies Hallucination at this time. Pt verbalizes the need to let staff know when thoughts of suicide occurs. Speech is clear with normal tone rhythm and galina. Pt has a cast on her right leg from fractured toe.
[2020-11-11 06:00] VITALS: BP 110/74; PULSE 68; RESP 16; TEMP 35.8; O2SAT 95
[2020-11-11 06:12] VITALS: BP 110/74; PULSE 68; RESP 16; TEMP 35.8; O2SAT 95
[2020-11-11 06:17] LABS: Glucose, Whole Blood 228 mg/dL (60-115)
[2020-11-11] MEDS: Omeprazole 20 MG CAPSULE.DR PO (06:24)
[2020-11-11] MEDS: Levothyroxine Sodium 75 MCG TABLET PO (06:24)
[2020-11-11 06:35] VITALS: BP 110/74; PULSE 68; RESP 16; TEMP 35.8; O2SAT 95
[2020-11-11 07:46] LABS: Prothrombin Time 22.5 SEC (9.9-13.0)
[2020-11-11] MEDS: Insulin Lispro 100 UNIT/ML 3 ML VIAL SUBCUT ×3 (08:31→17:25)
[2020-11-11] MEDS: medroxyPROGESTERone Acetate 5 MG TABLET 10 MG PO (08:32)
[2020-11-11] MEDS: Furosemide 20 MG TABLET PO (08:32)
[2020-11-11 08:33] VITALS: BP 110/64; PULSE 68
[2020-11-11] MEDS: Loratadine 10 MG TABLET PO (08:33)
[2020-11-11] MEDS: lisinopriL 5 MG TABLET PO (08:33)
[2020-11-11] MEDS: Metoprolol Succinate ER 50 MG TAB.ER.24H PO (08:33)
[2020-11-11] MEDS: Sertraline HCL 50 MG TABLET 150 MG PO (08:34)
[2020-11-11] MEDS: clonazePAM 0.5 MG TABLET PO (08:38)
[2020-11-11] MEDS: hydrOXYzine HCL 25 MG TABLET PO (09:39)
[2020-11-11 10:43] LABS: Glucose, Whole Blood 289 mg/dL (60-115)
--- NOTE | 2020-11-11 11:25 | PC.NURSE ---
Patient was in kitchen area participating in group activity at approxiately 1030 am. Due to increased noise and stimulus in the room patient experienced a pseudo seizure. Patient was found slumped in chair, rigidity present and eyes were fluttering. expansion envelope maker hand during event sat at her left side providing support and comfort. Responder was also timing length of episode. Slap test was performed by charge nurse. Rigidity of lower arms bilaterally present. Seizure lasted approximately 90 Seconds. Post ictal response noted with patient screaming and crying. Patient was also mildly confused. Patient then stated, I have pseudo seizures . Vital signs were taken. Pulse 97, BP 124/71 O2 90% and Respirations 16. POC indicated BS was 289. 6 units insulin given per sliding scale. Provider notified by charge. Patient observed to be resting comfortably in room at present time.
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
[2020-11-11] MEDS: Warfarin Sodium 10 MG TABLET PO (17:25)
[2020-11-11 17:41] LABS: Glucose, Whole Blood 178 mg/dL (60-115)
[2020-11-11 19:25] VITALS: BP 116/59; PULSE 95; TEMP 36.4
[2020-11-11] MEDS: traMADoL HCL 50 MG TABLET PO (19:31)
[2020-11-11] MEDS: Atorvastatin Calcium 20 MG TABLET PO (22:11)
[2020-11-11 22:23] LABS: Glucose, Whole Blood 231 mg/dL (60-115)
[2020-11-12 06:24] LABS: Glucose, Whole Blood 137 mg/dL (60-115)
[2020-11-12 06:31] VITALS: BP 125/84; PULSE 88; RESP 18; O2SAT 90
[2020-11-12 08:33] LABS: INTERNATIONAL NORM RATIO 2.6 (0.9-1.1); Prothrombin Time 30.5 SEC (9.9-13.0)
[2020-11-12] MEDS: Loratadine 10 MG TABLET PO (09:10)
[2020-11-12] MEDS: Sertraline HCL 50 MG TABLET 150 MG PO (09:10)
[2020-11-12] MEDS: metFORMIN HCl 1,000 MG TABLET 1000 MG PO ×2 (09:10→21:29)
[2020-11-12] MEDS: Levothyroxine Sodium 75 MCG TABLET PO (09:10)
[2020-11-12 09:11] VITALS: BP 129/94; PULSE 74
[2020-11-12] MEDS: Metoprolol Succinate ER 50 MG TAB.ER.24H PO (09:11)
[2020-11-12] MEDS: lisinopriL 5 MG TABLET PO (09:11)
[2020-11-12] MEDS: medroxyPROGESTERone Acetate 5 MG TABLET 10 MG PO (09:11)
[2020-11-12] MEDS: Furosemide 20 MG TABLET PO (09:11)
[2020-11-12] MEDS: Omeprazole 20 MG CAPSULE.DR PO (09:12)
[2020-11-12] MEDS: Acetaminophen 325 MG TABLET 650 MG PO (09:12)
[2020-11-12 09:15] VITALS: BP 129/94; PULSE 74
[2020-11-12 09:44] VITALS: BP 143/76; PULSE 100; RESP 16; O2SAT 85
--- NOTE | 2020-11-12 10:51 | P.PNPSI_ITS ---
Subjective Subjective Date of Service: 11/13/20 Reason For Visit: HI, SI Subjective Notes: Conditional Voluntary Interim History: Pt continues to report that she is frustrated. Pt observed agitated because her belonging were not in nurses station, when explained that they are securely stored, pt continued to present as agitated, stating she didn't like anyone touching her stuff, because she thinks others are stealing from her. She continues to report being in dark mood. She reports sleep and appetite is fair. She is seen in unit, social with select peers. Medication Compliance: Yes Side effects from medications: No Attending Groups: Intermittent Review of Systems Review of Systems Constitutional : No Fever, No Chills ENT/Mouth : No Ear Pain, No Nasal Congestion, No sore throat Eyes: No Eye Pain, No Swelling, No Redness Cardiovascular : No Chest Pain, No SOB Respiratory : No Cough, No Sputum, No Dyspnea Gastrointestinal : No Nausea, No Vomiting, No Diarrhea, No Hematochezia, No Melena Genitourinary : No Dysuria, No Urinary Frequency, No Hematuria Musculoskeletal : No Myalgias Skin : No Skin Lesions, No rash Neuro : No Weakness, No Numbness, No Paresthesias, No Dizziness, No Headache Psych : positive Anxiety, positive Depression, positive SI/HI Heme/Lymph: No Lymphadenopathy Endocrine : No Polyuria, No Polydipsia Yes all other systems are reviewed and are negative Constitutional: Reports fatigue, Denies increased appetite, Denies poor appetite and Denies weight gain Eyes: Denies blurry vision and Denies diplopia Cardiovascular: Denies lightheadedness, Denies dyspnea, Denies dyspnea on exertion and Denies orthopnea Respiratory: Denies dyspnea and Denies dyspnea on exertion Gastrointestinal: Denies constipation, Denies heartburn, Denies diarrhea, Denies loose stools and Denies vomiting Endocrine: Reports fatigue Mental Status Exam Mental Status Exam Narrative: Appearance: casually groomed, fair hygiene in NAD Behavior:cooperative psychomotor:no agitation or retardation noted Speech:clear, normal rate/rhythm/volume, spontaneous Thought process: tangential Thought content:feeling not supported by OP providers Mood: depressed Affect: blunted, dysphoric at times SI:passive, no plan or intent HI:none VH/AH:AH no CAH Delusions:none Memory/cog: alert, oriented x 3. grossly intact to conversational testing. Diagnostics Vital Signs (24Hr): Vital Signs - 24 hr 11/12/20 17:43 11/12/20 19:15 11/13/20 06:00 Temperature 97.0 F 96.3 F L Pulse Rate 100 86 Respiratory Rate 16 Blood Pressure 124/59 L 128/69 Pulse Oximetry 90 L 92 95 11/13/20 09:04 Temperature Pulse Rate 94 Respiratory Rate Blood Pressure 113/93 H Pulse Oximetry Body Mass Index 53.2 Labs Results: 11/10/20 15:47 11/10/20 15:48 Labs: Laboratory Results - last 48 hr 11/11/20 11/11/20 11/12/20 17:17 22:18 06:17 PT INR POC Glucose 178 H 231 H 137 H 11/12/20 11/12/20 11/12/20 08:13 12:14 17:15 PT 30.5 H D INR 2.6 H POC Glucose 220 H 148 H 11/12/20 11/13/20 21:14 06:41 PT INR POC Glucose 262 H 167 H Medications Medications Current Medications Generic Name Dose Route Start Last Admin Trade Name Freq PRN Reason Stop Dose Admin Acetaminophen 650 mg 11/10/20 22:18 11/12/20 09:12 Acetaminophen 325 Mg Tablet PO 650 mg Q6H PRN Administration Headache/Pain Mild Scale (1-3) Al Hydroxide/Mg Hydroxide 30 ml 11/10/20 22:18 Magnesium Hydrox/Alum Hydrox 30 Ml Oral.Susp PO Q6H PRN Heartburn/Nausea Albuterol Sulfate 2.5 mg 11/10/20 17:00 11/10/20 23:30 Albuterol Sulfate (0.083%) 2.5 Mg/3 Ml Vial.Neb INHALE 2.5 mg QID PRN Administration Allergic Reaction Albuterol Sulfate 2 puff 11/10/20 17:00 11/12/20 19:12 Albuterol Sulfate 90 Mcg 8 Gm Inhaler INHALE 2 puff Q4H PRN Administration COUGH/WHEEZE Atorvastatin Calcium 20 mg 11/11/20 21:00 11/12/20 21:29 Atorvastatin Calcium 20 Mg Tablet PO 20 mg BEDTIME CLAIRE Administration Clonazepam 0.5 mg 11/10/20 17:00 11/12/20 14:27 Clonazepam 0.5 Mg Tablet PO 0.5 mg BID PRN Administration anxiety Furosemide 20 mg 11/11/20 09:00 11/13/20 09:06 Furosemide 20 Mg Tablet PO 20 mg DAILY CLAIRE Administration Protocol Hydroxyzine HCl 25 mg 11/10/20 22:18 11/11/20 09:39 Hydroxyzine Hcl 25 Mg Tablet PO 25 mg Q6H PRN Administration Anxiety Insulin Glargine 36 unit 11/10/20 21:00 11/12/20 21:30 Insulin Glargine,Hum.Rec.Anlog 100 Unit/Ml 10 Ml Vial SUBCUT 36 unit BEDTIME CLAIRE Administration Insulin Human Lispro 0 unit 11/11/20 07:30 11/13/20 09:07 Insulin Lispro 100 Unit/Ml 3 Ml Vial SUBCUT 2 unit TIDAC CLAIRE Administration Protocol Levothyroxine Sodium 75 mcg 11/11/20 06:00 11/13/20 09:00 Levothyroxine Sodium 75 Mcg Tablet PO 75 mcg DAILY@0600 CLAIRE Administration Lisinopril 5 mg 11/11/20 09:00 11/13/20 09:04 Lisinopril 5 Mg Tablet PO 5 mg DAILY CLAIRE Administration Protocol Loratadine 10 mg 11/11/20 09:00 11/13/20 09:02 Loratadine 10 Mg Tablet PO 10 mg DAILY CLAIRE Administration Magnesium Hydroxide 30 ml 11/10/20 22:18 11/12/20 18:20 Milk Of Magnesia 30 Ml Oral.Susp PO 30 ml DAILY PRN Administration Constipation Medroxyprogesterone Acetate 10 mg 11/11/20 09:00 11/13/20 08:59 Medroxyprogesterone Acetate 5 Mg Tablet PO 10 mg DAILY CLAIRE Administration Metformin HCl 1,000 mg 11/10/20 21:00 11/13/20 09:01 Metformin Hcl 1,000 Mg Tablet PO 1,000 mg BID CLAIRE Administration Metoprolol Succinate 50 mg 11/11/20 09:00 11/13/20 09:05 Metoprolol Succinate Er 50 Mg Tab.Er.24h PO 50 mg DAILY CLAIRE Administration Protocol Omeprazole 20 mg 11/11/20 06:30 11/13/20 09:02 Omeprazole 20 Mg Capsule.Dr PO 20 mg DAILY@0630 CLAIRE Administration Sertraline HCl 150 mg 11/11/20 09:00 11/13/20 08:58 Sertraline Hcl 50 Mg Tablet PO 150 mg DAILY CLAIRE Administration Tramadol HCl 50 mg 11/10/20 17:00 11/12/20 12:20 Tramadol Hcl 50 Mg Tablet PO 50 mg Q6H PRN Administration pain Trazodone HCl 50 mg 11/10/20 17:00 11/11/20 01:09 Trazodone Hcl 50 Mg Tablet PO 50 mg BEDTIME PRN Administration Sleep Warfarin Sodium 10 mg 11/10/20 18:30 11/12/20 17:18 Warfarin Sodium 10 Mg Tablet PO 10 mg DAILY@1700 CLAIRE Administration Allergies Allergies Allergy/AdvReac Type Severity Reaction Status Date / Time Penicillins [PENICILLINS] Allergy Intermediate HIVES Verified 09/26/20 21:54 egg [Egg] Allergy Mild SWELLING Verified 09/26/20 21:54 aspirin Allergy Unknown Unknown Verified 09/26/20 21:54 bee pollen [BEE STINGS] Allergy Unknown UNKNOWN Verified 09/26/20 21:54 lactose [LACTOSE] Allergy Unknown UNKNOWN Verified 09/26/20 21:54 latex [LATEX] Allergy Unknown HIVES Verified 09/26/20 21:54 oxycodone Allergy Unknown Unknown Verified 09/26/20 21:54 peanut [PEANUT] Allergy Unknown UNKNOWN Verified 09/26/20 21:54 penicillin V Allergy Unknown Unknown Verified 09/26/20 21:54 kiwi Allergy Anaphylaxis Verified 09/26/20 21:54 eggs,bees,latex,peanuts Allergy Unknown Unknown Uncoded 07/22/20 11:46 medical tape Allergy Unknown Unknown Uncoded 07/22/20 11:46 TAPE,PLASTIC Allergy Unknown RASH Uncoded 07/22/20 11:46 Assessment & Plan Assessment & Plan (1) Congestive heart failure with LV diastolic dysfunction, NYHA class 1: Status: Acute Code(s): I50.30 - Unspecified diastolic (congestive) heart failure (2) Borderline personality disorder: Status: Acute Code(s): F60.3 - Borderline personality disorder (3) Chronic post-traumatic stress disorder (PTSD): Status: Acute Code(s): F43.12 - Post-traumatic stress disorder, chronic Assessment and Plan: Ms. Mccann is a 45 year-old woman with hx of BPD, MDD, PTSD who self presented to [facility] ED due to increase depression, anxious mood, passive suicidal ideation, in context of feeling not supported by OP providers from [facility]. Pt is known to this unit through previous admission with similar presentation. PLAN 1. Admit to M5 2. Continue current medications 3. Obtain collateral information 4. Aftercare planning/coordination of care with OP providers. (4) Diabetes type 2, uncontrolled: Qualifiers: Glycemic state: with hyperglycemia Qualified Code(s): E11.65 - Type 2 diabetes mellitus with hyperglycemia Status: Acute Code(s): E11.65 - Type 2 diabetes mellitus with hyperglycemia (5) Essential hypertension: Status: Acute Code(s): I10 - Essential (primary) hypertension Greater than 50% of the session was spent on counseling and/or coordination of care Reason for contiued inpatient stay Substantial Risk for: harm to self and inability to function
[2020-11-12] MEDS: traMADoL HCL 50 MG TABLET PO (12:20)
[2020-11-12] MEDS: Insulin Lispro 100 UNIT/ML 3 ML VIAL SUBCUT (12:24)
[2020-11-12 12:30] LABS: Glucose, Whole Blood 220 mg/dL (60-115)
[2020-11-12] MEDS: clonazePAM 0.5 MG TABLET PO (14:27)
[2020-11-12 17:18] LABS: Glucose, Whole Blood 148 mg/dL (60-115)
[2020-11-12] MEDS: Warfarin Sodium 10 MG TABLET PO (17:18)
[2020-11-12 17:43] VITALS: BP 124/59; PULSE 100; RESP 16; TEMP 36.1; O2SAT 90
[2020-11-12] MEDS: Milk of Magnesia 30 ML ORAL.SUSP PO (18:20)
[2020-11-12] MEDS: Albuterol Sulfate 90 MCG 8 GM INHALER 2 PUFF INHALE (19:12)
[2020-11-12 19:15] VITALS: O2SAT 92
[2020-11-12 21:17] LABS: Glucose, Whole Blood 262 mg/dL (60-115)
[2020-11-12] MEDS: Atorvastatin Calcium 20 MG TABLET PO (21:29)
[2020-11-12] MEDS: Insulin Glargine,Hum.rec.anlog 100 UNIT/ML 10 ML VIAL 36 UNIT SUBCUT (21:30)
[2020-11-13 06:00] VITALS: BP 128/69; PULSE 86; TEMP 35.7; O2SAT 95
[2020-11-13 07:02] LABS: Glucose, Whole Blood 167 mg/dL (60-115)
[2020-11-13] MEDS: Sertraline HCL 50 MG TABLET 150 MG PO (08:58)
[2020-11-13] MEDS: medroxyPROGESTERone Acetate 5 MG TABLET 10 MG PO (08:59)
[2020-11-13] MEDS: Levothyroxine Sodium 75 MCG TABLET PO (09:00)
[2020-11-13] MEDS: metFORMIN HCl 1,000 MG TABLET 1000 MG PO ×2 (09:01→21:29)
[2020-11-13] MEDS: Omeprazole 20 MG CAPSULE.DR PO (09:02)
[2020-11-13] MEDS: Loratadine 10 MG TABLET PO (09:02)
[2020-11-13 09:04] VITALS: BP 113/93; PULSE 94
[2020-11-13] MEDS: lisinopriL 5 MG TABLET PO (09:04)
[2020-11-13] MEDS: Metoprolol Succinate ER 50 MG TAB.ER.24H PO (09:05)
[2020-11-13] MEDS: Furosemide 20 MG TABLET PO (09:06)
[2020-11-13] MEDS: Insulin Lispro 100 UNIT/ML 3 ML VIAL SUBCUT ×3 (09:07→16:43)
--- NOTE | 2020-11-13 10:03 | HO.PSYCHPN ---
Subjective Subjective Date of Service: 11/14/20 Reason For Visit: HI, SI Subjective Notes: Conditional Voluntary Interim History: Pt seen with clinician Sharifa. Pt saw security on unit and states was triggered by their presence. She reports it reminded her of her father who was killed by police. She continues to express frustration about [employer] managing her money and missing her payments- which agency did acknowledge and stated working to fix. Pt reports feeling lonely, isolated from providers and outreach workers who used to see her weekly. She denies SI/IH. She reports fair sleep. No behavioral concerns. Medication Compliance: Yes Side effects from medications: No Attending Groups: Yes Review of Systems Acute medical concerns: No Review of Systems Review of Systems Constitutional : No Fever, No Chills ENT/Mouth : No Ear Pain, No Nasal Congestion, No sore throat Eyes: No Eye Pain, No Swelling, No Redness Cardiovascular : No Chest Pain, No SOB Respiratory : No Cough, No Sputum, No Dyspnea Gastrointestinal : No Nausea, No Vomiting, No Diarrhea, No Hematochezia, No Melena Genitourinary : No Dysuria, No Urinary Frequency, No Hematuria Musculoskeletal : No Myalgias Skin : No Skin Lesions, No rash Neuro : No Weakness, No Numbness, No Paresthesias, No Dizziness, No Headache Psych : positive Anxiety, positive Depression, positive SI/HI Heme/Lymph: No Lymphadenopathy Endocrine : No Polyuria, No Polydipsia Yes all other systems are reviewed and are negative Constitutional: Reports fatigue, Denies increased appetite, Denies poor appetite and Denies weight gain Eyes: Denies blurry vision and Denies diplopia Cardiovascular: Denies lightheadedness, Denies dyspnea, Denies dyspnea on exertion and Denies orthopnea Respiratory: Denies dyspnea and Denies dyspnea on exertion Gastrointestinal: Denies constipation, Denies heartburn, Denies diarrhea, Denies loose stools and Denies vomiting Endocrine: Reports fatigue Mental Status Exam Mental Status Exam Narrative: Appearance: casually groomed, fair hygiene in NAD Behavior:cooperative psychomotor:no agitation or retardation noted Speech:clear, normal rate/rhythm/volume, spontaneous Thought process: tangential Thought content:feeling not supported by OP providers Mood: depressed Affect: blunted, dysphoric at times SI:passive, no plan or intent HI:none VH/AH:AH no CAH Delusions:none Memory/cog: alert, oriented x 3. grossly intact to conversational testing. Diagnostics Vital Signs (24Hr): Vital Signs - 24 hr 11/13/20 17:12 11/14/20 09:00 11/14/20 09:01 Temperature 97.1 F Pulse Rate 91 92 98 Respiratory Rate 20 Blood Pressure 124/57 L 116/57 L 116/57 L Pulse Oximetry 91 L Body Mass Index 53.2 Labs Results: 11/10/20 15:47 11/10/20 15:48 Labs: Laboratory Results - last 48 hr 11/12/20 11/12/20 11/12/20 12:14 17:15 21:14 PT INR POC Glucose 220 H 148 H 262 H 11/13/20 11/13/20 11/13/20 06:41 12:21 13:41 PT 35.6 H INR 3.1 H POC Glucose 167 H 299 H 11/13/20 11/13/20 11/14/20 16:33 21:17 06:20 PT INR POC Glucose 298 H 215 H 103 11/14/20 08:09 PT 35.5 H INR 3.0 H POC Glucose Medications Medications Current Medications Generic Name Dose Route Start Last Admin Trade Name Freq PRN Reason Stop Dose Admin Acetaminophen 650 mg 11/10/20 22:18 11/13/20 22:57 Acetaminophen 325 Mg Tablet PO 650 mg Q6H PRN Administration Headache/Pain Mild Scale (1-3) Al Hydroxide/Mg Hydroxide 30 ml 11/10/20 22:18 Magnesium Hydrox/Alum Hydrox 30 Ml Oral.Susp PO Q6H PRN Heartburn/Nausea Albuterol Sulfate 2.5 mg 11/10/20 17:00 11/10/20 23:30 Albuterol Sulfate (0.083%) 2.5 Mg/3 Ml Vial.Neb INHALE 2.5 mg QID PRN Administration Allergic Reaction Albuterol Sulfate 2 puff 11/10/20 17:00 11/13/20 19:21 Albuterol Sulfate 90 Mcg 8 Gm Inhaler INHALE 2 puff Q4H PRN Administration COUGH/WHEEZE Atorvastatin Calcium 20 mg 11/11/20 21:00 11/13/20 21:29 Atorvastatin Calcium 20 Mg Tablet PO 20 mg BEDTIME CLAIRE Administration Clonazepam 0.5 mg 11/10/20 17:00 11/14/20 09:07 Clonazepam 0.5 Mg Tablet PO 0.5 mg BID PRN Administration anxiety Furosemide 20 mg 11/11/20 09:00 11/14/20 09:01 Furosemide 20 Mg Tablet PO 20 mg DAILY CLAIRE Administration Protocol Hydroxyzine HCl 25 mg 11/10/20 22:18 11/11/20 09:39 Hydroxyzine Hcl 25 Mg Tablet PO 25 mg Q6H PRN Administration Anxiety Insulin Glargine 36 unit 11/10/20 21:00 11/13/20 21:26 Insulin Glargine,Hum.Rec.Anlog 100 Unit/Ml 10 Ml Vial SUBCUT 36 unit BEDTIME CLAIRE Administration Insulin Human Lispro 0 unit 11/11/20 07:30 11/13/20 16:43 Insulin Lispro 100 Unit/Ml 3 Ml Vial SUBCUT 6 unit TIDAC [facility] Administration Protocol Levothyroxine Sodium 75 mcg 11/11/20 06:00 11/14/20 08:57 Levothyroxine Sodium 75 Mcg Tablet PO 75 mcg DAILY@0600 CLAIRE Administration Lisinopril 5 mg 11/11/20 09:00 11/14/20 09:00 Lisinopril 5 Mg Tablet PO 5 mg DAILY CLAIRE Administration Protocol Loratadine 10 mg 11/11/20 09:00 11/14/20 09:00 Loratadine 10 Mg Tablet PO 10 mg DAILY CLAIRE Administration Magnesium Hydroxide 30 ml 11/10/20 22:18 11/12/20 18:20 Milk Of Magnesia 30 Ml Oral.Susp PO 30 ml DAILY PRN Administration Constipation Medroxyprogesterone Acetate 10 mg 11/11/20 09:00 11/14/20 09:07 Medroxyprogesterone Acetate 5 Mg Tablet PO 10 mg DAILY CLAIRE Administration Metformin HCl 1,000 mg 11/10/20 21:00 11/14/20 08:59 Metformin Hcl 1,000 Mg Tablet PO 1,000 mg BID CLAIRE Administration Metoprolol Succinate 50 mg 11/11/20 09:00 11/14/20 09:01 Metoprolol Succinate Er 50 Mg Tab.Er.24h PO 50 mg DAILY CLAIRE Administration Protocol Omeprazole 20 mg 11/11/20 06:30 11/14/20 09:00 Omeprazole 20 Mg Capsule.Dr PO 20 mg DAILY@0630 CLAIRE Administration Sertraline HCl 150 mg 11/11/20 09:00 11/14/20 09:02 Sertraline Hcl 50 Mg Tablet PO 150 mg DAILY CLAIRE Administration Tramadol HCl 50 mg 11/10/20 17:00 11/13/20 11:24 Tramadol Hcl 50 Mg Tablet PO 50 mg Q6H PRN Administration pain Trazodone HCl 50 mg 11/10/20 17:00 11/11/20 01:09 Trazodone Hcl 50 Mg Tablet PO 50 mg BEDTIME PRN Administration Sleep Warfarin Sodium 10 mg 11/10/20 18:30 11/13/20 16:40 Warfarin Sodium 10 Mg Tablet PO 10 mg DAILY@1700 CLAIRE Administration Allergies Allergies Allergy/AdvReac Type Severity Reaction Status Date / Time Penicillins [PENICILLINS] Allergy Intermediate HIVES Verified 09/26/20 21:54 egg [Egg] Allergy Mild SWELLING Verified 09/26/20 21:54 aspirin Allergy Unknown Unknown Verified 09/26/20 21:54 bee pollen [BEE STINGS] Allergy Unknown UNKNOWN Verified 09/26/20 21:54 lactose [LACTOSE] Allergy Unknown UNKNOWN Verified 09/26/20 21:54 latex [LATEX] Allergy Unknown HIVES Verified 09/26/20 21:54 oxycodone Allergy Unknown Unknown Verified 09/26/20 21:54 peanut [PEANUT] Allergy Unknown UNKNOWN Verified 09/26/20 21:54 penicillin V Allergy Unknown Unknown Verified 09/26/20 21:54 kiwi Allergy Anaphylaxis Verified 09/26/20 21:54 eggs,bees,latex,peanuts Allergy Unknown Unknown Uncoded 07/22/20 11:46 medical tape Allergy Unknown Unknown Uncoded 07/22/20 11:46 TAPE,PLASTIC Allergy Unknown RASH Uncoded 07/22/20 11:46 Assessment & Plan Assessment & Plan (1) Congestive heart failure with LV diastolic dysfunction, NYHA class 1: Status: Acute Code(s): I50.30 - Unspecified diastolic (congestive) heart failure (2) Borderline personality disorder: Status: Acute Code(s): F60.3 - Borderline personality disorder (3) Chronic post-traumatic stress disorder (PTSD): Status: Acute Code(s): F43.12 - Post-traumatic stress disorder, chronic Assessment and Plan: Ms. Mccann is a 45 year-old woman with hx of BPD, MDD, PTSD who self presented to [facility] due to increase depression, anxious mood, passive suicidal ideation, in context of feeling not supported by OP providers from [facility]. Pt is known to this unit through previous admission with similar presentation. PLAN 1. Admit to M5 2. Continue current medications 3. Obtain collateral information 4. Aftercare planning/coordination of care with OP providers. (4) Diabetes type 2, uncontrolled: Qualifiers: Glycemic state: with hyperglycemia Qualified Code(s): E11.65 - Type 2 diabetes mellitus with hyperglycemia Status: Acute Code(s): E11.65 - Type 2 diabetes mellitus with hyperglycemia (5) Essential hypertension: Status: Acute Code(s): I10 - Essential (primary) hypertension Greater than 50% of the session was spent on counseling and/or coordination of care Reason for contiued inpatient stay Substantial Risk for: harm to self
[2020-11-13] MEDS: traMADoL HCL 50 MG TABLET PO (11:24)
[2020-11-13 12:25] LABS: Glucose, Whole Blood 299 mg/dL (60-115)
[2020-11-13 14:05] LABS: INTERNATIONAL NORM RATIO 3.1 (0.9-1.1); Prothrombin Time 35.6 SEC (9.9-13.0)
[2020-11-13 16:37] LABS: Glucose, Whole Blood 298 mg/dL (60-115)
[2020-11-13] MEDS: Warfarin Sodium 10 MG TABLET PO (16:40)
[2020-11-13 17:12] VITALS: BP 124/57; PULSE 91; RESP 20; TEMP 36.2; O2SAT 91
[2020-11-13] MEDS: Albuterol Sulfate 90 MCG 8 GM INHALER 2 PUFF INHALE (19:21)
[2020-11-13 21:21] LABS: Glucose, Whole Blood 215 mg/dL (60-115)
[2020-11-13] MEDS: Insulin Glargine,Hum.rec.anlog 100 UNIT/ML 10 ML VIAL 36 UNIT SUBCUT (21:26)
[2020-11-13] MEDS: Atorvastatin Calcium 20 MG TABLET PO (21:29)
[2020-11-13] MEDS: Acetaminophen 325 MG TABLET 650 MG PO (22:57)
[2020-11-14 06:29] LABS: Glucose, Whole Blood 103 mg/dL (60-115)
[2020-11-14 08:24] LABS: Prothrombin Time 35.5 SEC (9.9-13.0)
--- NOTE | 2020-11-14 08:41 | P.PNPSI_ITS ---
Subjective Subjective Date of Service: 11/15/20 Reason For Visit: HI, SI Subjective Notes: Conditional Voluntary Interim History: Pt reports feeling calmer, less depressed. He had episode of SOB, sat upper 80's. Pt denies SOB. She reports less anxious mood. She denies suicidal ideation. She has been mostly in bed. encouraged to go to groups. Medication Compliance: Yes Side effects from medications: No Review of Systems Review of Systems Constitutional : No Fever, No Chills ENT/Mouth : No Ear Pain, No Nasal Congestion, No sore throat Eyes: No Eye Pain, No Swelling, No Redness Cardiovascular : No Chest Pain, No SOB Respiratory : No Cough, No Sputum, No Dyspnea Gastrointestinal : No Nausea, No Vomiting, No Diarrhea, No Hematochezia, No Melena Genitourinary : No Dysuria, No Urinary Frequency, No Hematuria Musculoskeletal : No Myalgias Skin : No Skin Lesions, No rash Neuro : No Weakness, No Numbness, No Paresthesias, No Dizziness, No Headache Psych : positive Anxiety, positive Depression, positive SI/HI Heme/Lymph: No Lymphadenopathy Endocrine : No Polyuria, No Polydipsia Yes all other systems are reviewed and are negative Constitutional: Reports fatigue, Denies increased appetite, Denies poor appetite and Denies weight gain Eyes: Denies blurry vision and Denies diplopia Cardiovascular: Denies lightheadedness, Denies dyspnea, Denies dyspnea on exertion and Denies orthopnea Respiratory: Denies dyspnea and Denies dyspnea on exertion Gastrointestinal: Denies constipation, Denies heartburn, Denies diarrhea, Denies loose stools and Denies vomiting Endocrine: Reports fatigue Mental Status Exam Mental Status Exam Narrative: Appearance: casually groomed, fair hygiene in NAD Behavior:cooperative psychomotor:no agitation or retardation noted Speech:clear, normal rate/rhythm/volume, spontaneous Thought process: tangential Thought content:feeling not supported by OP providers Mood: depressed Affect: blunted, dysphoric at times SI:passive, no plan or intent HI:none VH/AH:AH no CAH Delusions:none Memory/cog: alert, oriented x 3. grossly intact to conversational testing. Diagnostics Vital Signs (24Hr): Vital Signs - 24 hr 11/14/20 09:00 11/14/20 09:01 11/14/20 10:35 Temperature Pulse Rate 92 98 98 Respiratory Rate Blood Pressure 116/57 L 116/57 L 116/57 L Pulse Oximetry 11/14/20 17:23 11/14/20 20:23 11/14/20 21:38 Temperature 97.6 F Pulse Rate 87 88 84 Respiratory Rate Blood Pressure 112/76 144/88 H Pulse Oximetry 94 95 11/15/20 04:35 11/15/20 06:00 Temperature 95.7 F L Pulse Rate 76 84 Respiratory Rate 16 Blood Pressure 127/73 Pulse Oximetry 95 Body Mass Index 54.3 Labs Results: 11/10/20 15:47 11/10/20 15:48 Labs: Laboratory Results - last 48 hr 11/13/20 11/13/20 11/13/20 12:21 13:41 16:33 PT 35.6 H INR 3.1 H POC Glucose 299 H 298 H 11/13/20 11/14/20 11/14/20 21:17 06:20 08:09 PT 35.5 H INR 3.0 H POC Glucose 215 H 103 11/14/20 11/14/20 11/14/20 11:52 17:07 20:29 PT INR POC Glucose 136 H 240 H 175 H 11/14/20 11/15/20 11/15/20 22:44 06:56 07:28 PT 30.4 H INR 2.6 H POC Glucose 194 H 115 Medications Medications Current Medications Generic Name Dose Route Start Last Admin Trade Name Freq PRN Reason Stop Dose Admin Acetaminophen 650 mg 11/10/20 22:18 11/13/20 22:57 Acetaminophen 325 Mg Tablet PO 650 mg Q6H PRN Administration Headache/Pain Mild Scale (1-3) Al Hydroxide/Mg Hydroxide 30 ml 11/10/20 22:18 Magnesium Hydrox/Alum Hydrox 30 Ml Oral.Susp PO Q6H PRN Heartburn/Nausea Albuterol Sulfate 2.5 mg 11/10/20 17:00 11/15/20 04:32 Albuterol Sulfate (0.083%) 2.5 Mg/3 Ml Vial.Neb INHALE 2.5 mg QID PRN Administration Allergic Reaction Albuterol Sulfate 2 puff 11/10/20 17:00 11/13/20 19:21 Albuterol Sulfate 90 Mcg 8 Gm Inhaler INHALE 2 puff Q4H PRN Administration COUGH/WHEEZE Atorvastatin Calcium 20 mg 11/11/20 21:00 11/15/20 08:39 Atorvastatin Calcium 20 Mg Tablet PO Not Given BEDTIME CLAIRE Clonazepam 0.5 mg 11/10/20 17:00 11/14/20 09:07 Clonazepam 0.5 Mg Tablet PO 0.5 mg BID PRN Administration anxiety Furosemide 20 mg 11/11/20 09:00 11/14/20 09:01 Furosemide 20 Mg Tablet PO 20 mg DAILY CLAIRE Administration Protocol Hydroxyzine HCl 25 mg 11/10/20 22:18 11/11/20 09:39 Hydroxyzine Hcl 25 Mg Tablet PO 25 mg Q6H PRN Administration Anxiety Insulin Glargine 36 unit 11/10/20 21:00 11/13/20 21:26 Insulin Glargine,Hum.Rec.Anlog 100 Unit/Ml 10 Ml Vial SUBCUT 36 unit BEDTIME CLAIRE Administration Insulin Human Lispro 0 unit 11/11/20 07:30 11/15/20 08:36 Insulin Lispro 100 Unit/Ml 3 Ml Vial SUBCUT Not Given TIDAC CLAIRE Protocol Levothyroxine Sodium 75 mcg 11/11/20 06:00 11/15/20 06:53 Levothyroxine Sodium 75 Mcg Tablet PO 75 mcg DAILY@0600 CLAIRE Administration Lisinopril 5 mg 11/11/20 09:00 11/14/20 09:00 Lisinopril 5 Mg Tablet PO 5 mg DAILY CLAIRE Administration Protocol Loratadine 10 mg 11/11/20 09:00 11/14/20 09:00 Loratadine 10 Mg Tablet PO 10 mg DAILY CLAIRE Administration Magnesium Hydroxide 30 ml 11/10/20 22:18 11/12/20 18:20 Milk Of Magnesia 30 Ml Oral.Susp PO 30 ml DAILY PRN Administration Constipation Medroxyprogesterone Acetate 10 mg 11/11/20 09:00 11/14/20 09:07 Medroxyprogesterone Acetate 5 Mg Tablet PO 10 mg DAILY CLAIRE Administration Metformin HCl 1,000 mg 11/10/20 21:00 11/15/20 08:40 Metformin Hcl 1,000 Mg Tablet PO Not Given BID CLAIRE Metoprolol Succinate 50 mg 11/11/20 09:00 11/14/20 09:01 Metoprolol Succinate Er 50 Mg Tab.Er.24h PO 50 mg DAILY CLAIRE Administration Protocol Omeprazole 20 mg 11/11/20 06:30 11/15/20 06:53 Omeprazole 20 Mg Capsule. PO 20 mg DAILY@0630 CLAIRE Administration Sertraline HCl 150 mg 11/11/20 09:00 11/14/20 09:02 Sertraline Hcl 50 Mg Tablet PO 150 mg DAILY CLAIRE Administration Tramadol HCl 50 mg 11/10/20 17:00 11/14/20 14:48 Tramadol Hcl 50 Mg Tablet PO 50 mg Q6H PRN Administration pain Trazodone HCl 50 mg 11/10/20 17:00 11/11/20 01:09 Trazodone Hcl 50 Mg Tablet PO 50 mg BEDTIME PRN Administration Sleep Warfarin Sodium 10 mg 11/10/20 18:30 11/14/20 17:18 Warfarin Sodium 10 Mg Tablet PO 10 mg DAILY@1700 [facility] Administration Allergies Allergies Allergy/AdvReac Type Severity Reaction Status Date / Time Penicillins [PENICILLINS] Allergy Intermediate HIVES Verified 09/26/20 21:54 egg [Egg] Allergy Mild SWELLING Verified 09/26/20 21:54 aspirin Allergy Unknown Unknown Verified 09/26/20 21:54 bee pollen [BEE STINGS] Allergy Unknown UNKNOWN Verified 09/26/20 21:54 lactose [LACTOSE] Allergy Unknown UNKNOWN Verified 09/26/20 21:54 latex [LATEX] Allergy Unknown HIVES Verified 09/26/20 21:54 oxycodone Allergy Unknown Unknown Verified 09/26/20 21:54 peanut [PEANUT] Allergy Unknown UNKNOWN Verified 09/26/20 21:54 penicillin V Allergy Unknown Unknown Verified 09/26/20 21:54 kiwi Allergy Anaphylaxis Verified 09/26/20 21:54 eggs,bees,latex,peanuts Allergy Unknown Unknown Uncoded 07/22/20 11:46 medical tape Allergy Unknown Unknown Uncoded 07/22/20 11:46 TAPE,PLASTIC Allergy Unknown RASH Uncoded 07/22/20 11:46 Assessment & Plan Assessment & Plan (1) Congestive heart failure with LV diastolic dysfunction, NYHA class 1: Status: Acute Code(s): I50.30 - Unspecified diastolic (congestive) heart failure (2) Borderline personality disorder: Status: Acute Code(s): F60.3 - Borderline personality disorder (3) Chronic post-traumatic stress disorder (PTSD): Status: Acute Code(s): F43.12 - Post-traumatic stress disorder, chronic Assessment and Plan: Ms. Mccann is a 45 year-old woman with hx of BPD, MDD, PTSD who self presented to [facility] due to increase depression, anxious mood, passive suicidal ideation, in context of feeling not supported by OP providers from [facility]. Pt is known to this unit through previous admission with similar presentation. PLAN 1. Admit to M5 2. Continue current medications 3. Obtain collateral information 4. Aftercare planning/coordination of care with OP providers. (4) Diabetes type 2, uncontrolled: Qualifiers: Glycemic state: with hyperglycemia Qualified Code(s): E11.65 - Type 2 diabetes mellitus with hyperglycemia Status: Acute Code(s): E11.65 - Type 2 diabetes mellitus with hyperglycemia (5) Essential hypertension: Status: Acute Code(s): I10 - Essential (primary) hypertension Greater than 50% of the session was spent on counseling and/or coordination of care Reason for contiued inpatient stay Substantial Risk for: harm to self
[2020-11-14] MEDS: Levothyroxine Sodium 75 MCG TABLET PO (08:57)
[2020-11-14] MEDS: metFORMIN HCl 1,000 MG TABLET 1000 MG PO (08:59)
[2020-11-14 09:00] VITALS: BP 116/57; PULSE 92
[2020-11-14] MEDS: Omeprazole 20 MG CAPSULE.DR PO (09:00)
[2020-11-14] MEDS: lisinopriL 5 MG TABLET PO (09:00)
[2020-11-14] MEDS: Loratadine 10 MG TABLET PO (09:00)
[2020-11-14 09:01] VITALS: BP 116/57; PULSE 98
[2020-11-14] MEDS: Metoprolol Succinate ER 50 MG TAB.ER.24H PO (09:01)
[2020-11-14] MEDS: Furosemide 20 MG TABLET PO (09:01)
[2020-11-14] MEDS: Sertraline HCL 50 MG TABLET 150 MG PO (09:02)
[2020-11-14] MEDS: medroxyPROGESTERone Acetate 5 MG TABLET 10 MG PO (09:07)
[2020-11-14] MEDS: clonazePAM 0.5 MG TABLET PO (09:07)
[2020-11-14 10:35] VITALS: BP 116/57; PULSE 98
[2020-11-14 11:58] LABS: Glucose, Whole Blood 136 mg/dL (60-115)
[2020-11-14] MEDS: traMADoL HCL 50 MG TABLET PO (14:48)
[2020-11-14 14:52] VITALS: BMI 54.3
[2020-11-14 17:15] LABS: Glucose, Whole Blood 240 mg/dL (60-115)
[2020-11-14] MEDS: Warfarin Sodium 10 MG TABLET PO (17:18)
[2020-11-14 17:23] VITALS: BP 112/76; PULSE 87; TEMP 36.4; O2SAT 94
[2020-11-14] MEDS: Insulin Lispro 100 UNIT/ML 3 ML VIAL SUBCUT (17:32)
[2020-11-14 20:23] VITALS: PULSE 88; O2SAT 95
[2020-11-14 20:33] LABS: Glucose, Whole Blood 175 mg/dL (60-115)
[2020-11-14 21:38] VITALS: BP 144/88; PULSE 84; O2SAT 95
[2020-11-14 22:58] LABS: Glucose, Whole Blood 194 mg/dL (60-115)
[2020-11-15] MEDS: Albuterol Sulfate (0.083%) 2.5 MG/3 ML VIAL.NEB INHALE (04:32)
[2020-11-15 04:35] VITALS: PULSE 76; O2SAT 94
[2020-11-15 06:00] VITALS: BP 127/73; PULSE 84; RESP 16; TEMP 35.4; O2SAT 95
[2020-11-15] MEDS: Omeprazole 20 MG CAPSULE.DR PO (06:53)
[2020-11-15] MEDS: Levothyroxine Sodium 75 MCG TABLET PO (06:53)
[2020-11-15 07:03] LABS: Glucose, Whole Blood 115 mg/dL (60-115)
[2020-11-15 07:57] LABS: INTERNATIONAL NORM RATIO 2.6 (0.9-1.1); Prothrombin Time 30.4 SEC (9.9-13.0)
[2020-11-15] MEDS: Sertraline HCL 50 MG TABLET 150 MG PO (09:09)
[2020-11-15] MEDS: medroxyPROGESTERone Acetate 5 MG TABLET 10 MG PO (09:10)
[2020-11-15 09:11] VITALS: BP 118/63; PULSE 94
[2020-11-15] MEDS: metFORMIN HCl 1,000 MG TABLET 1000 MG PO ×2 (09:11→20:38)
[2020-11-15] MEDS: Metoprolol Succinate ER 50 MG TAB.ER.24H PO (09:11)
[2020-11-15] MEDS: Loratadine 10 MG TABLET PO (09:11)
[2020-11-15 09:12] VITALS: BP 118/63; PULSE 94
[2020-11-15] MEDS: lisinopriL 5 MG TABLET PO (09:12)
[2020-11-15] MEDS: Furosemide 20 MG TABLET PO (09:12)
--- NOTE | 2020-11-15 10:45 | P.PNPSI_ITS ---
Subjective Subjective Date of Service: 11/15/20 Reason For Visit: HI, SI Subjective Notes: Conditional Voluntary Medical Problems Affecting Mental Status: Yes Interim History: psuedoseizures; most recent 11/14/20 evening Medication Compliance: Yes Review of Systems pseudoseizures Medical Review of Systems: unchanged Review of Systems Review of Systems Constitutional : No Fever, No Chills ENT/Mouth : No Ear Pain, No Nasal Congestion, No sore throat Eyes: No Eye Pain, No Swelling, No Redness Cardiovascular : No Chest Pain, No SOB Respiratory : No Cough, No Sputum, No Dyspnea Gastrointestinal : No Nausea, No Vomiting, No Diarrhea, No Hematochezia, No Melena Genitourinary : No Dysuria, No Urinary Frequency, No Hematuria Musculoskeletal : No Myalgias Skin : No Skin Lesions, No rash Neuro : No Weakness, No Numbness, No Paresthesias, No Dizziness, No Headache Psych : positive Anxiety, positive Depression, positive SI/HI Heme/Lymph: No Lymphadenopathy Endocrine : No Polyuria, No Polydipsia Mental Status Exam Mental Status Exam Narrative: Appearance: casually groomed, fair hygiene in NAD Behavior:cooperative psychomotor:no agitation or retardation noted Speech:clear, normal rate/rhythm/volume, spontaneous Thought process: tangential Thought content:feeling not supported by OP providers Mood: depressed Affect: blunted, dysphoric at times SI:passive, no plan or intent HI:none VH/AH:AH no CAH Delusions:none Memory/cog: alert, oriented x 3. grossly intact to conversational testing. Judgement: Fair Diagnostics Vital Signs (24Hr): Vital Signs - 24 hr 11/14/20 17:23 11/14/20 20:23 11/14/20 21:38 Temperature 97.6 F Pulse Rate 87 88 84 Respiratory Rate Blood Pressure 112/76 144/88 H Pulse Oximetry 94 95 11/15/20 04:35 11/15/20 06:00 11/15/20 09:11 Temperature 95.7 F L Pulse Rate 76 84 94 Respiratory Rate 16 Blood Pressure 127/73 118/63 Pulse Oximetry 95 11/15/20 09:12 Temperature Pulse Rate 94 Respiratory Rate Blood Pressure 118/63 Pulse Oximetry Body Mass Index 54.3 Labs Results: 11/10/20 15:47 11/10/20 15:48 Labs: Laboratory Results - last 48 hr 08/11/13/20 11/13/20 12:21 13:41 16:33 PT 35.6 H INR 3.1 H POC Glucose 299 H 298 H 11/13/20 11/14/20 11/14/20 21:17 06:20 08:09 PT 35.5 H INR 3.0 H POC Glucose 215 H 103 11/14/20 11/14/20 11/14/20 11:52 17:07 20:29 PT INR POC Glucose 136 H 240 H 175 H 11/14/20 11/15/20 11/15/20 22:44 06:56 07:28 PT 30.4 H INR 2.6 H POC Glucose 194 H 115 Medications Medications Current Medications Generic Name Dose Route Start Last Admin Trade Name Freq PRN Reason Stop Dose Admin Acetaminophen 650 mg 11/10/20 22:18 11/13/20 22:57 Acetaminophen 325 Mg Tablet PO 650 mg Q6H PRN Administration Headache/Pain Mild Scale (1-3) Al Hydroxide/Mg Hydroxide 30 ml 11/10/20 22:18 Magnesium Hydrox/Alum Hydrox 30 Ml Oral.Susp PO Q6H PRN Heartburn/Nausea Albuterol Sulfate 2.5 mg 11/10/20 17:00 11/15/20 04:32 Albuterol Sulfate (0.083%) 2.5 Mg/3 Ml Vial.Neb INHALE 2.5 mg QID PRN Administration Allergic Reaction Albuterol Sulfate 2 puff 11/10/20 17:00 11/13/20 19:21 Albuterol Sulfate 90 Mcg 8 Gm Inhaler INHALE 2 puff Q4H PRN Administration COUGH/WHEEZE Atorvastatin Calcium 20 mg 11/11/20 21:00 11/15/20 08:39 Atorvastatin Calcium 20 Mg Tablet PO Not Given BEDTIME [facility] Clonazepam 0.5 mg 11/10/20 17:00 11/14/20 09:07 Clonazepam 0.5 Mg Tablet PO 0.5 mg BID PRN Administration anxiety Furosemide 20 mg 11/11/20 09:00 11/15/20 09:12 Furosemide 20 Mg Tablet PO 20 mg DAILY CLAIRE Administration Protocol Hydroxyzine HCl 25 mg 11/10/20 22:18 11/11/20 09:39 Hydroxyzine Hcl 25 Mg Tablet PO 25 mg Q6H PRN Administration Anxiety Insulin Glargine 36 unit 11/10/20 21:00 11/15/20 08:42 Insulin Glargine,Hum.Rec.Anlog 100 Unit/Ml 10 Ml Vial SUBCUT Not Given BEDTIME [facility] Insulin Human Lispro 0 unit 11/11/20 07:30 11/15/20 08:36 Insulin Lispro 100 Unit/Ml 3 Ml Vial SUBCUT Not Given TIDAC [facility] Protocol Levothyroxine Sodium 75 mcg 11/11/20 06:00 11/15/20 06:53 Levothyroxine Sodium 75 Mcg Tablet PO 75 mcg DAILY@0600 CLAIRE Administration Lisinopril 5 mg 11/11/20 09:00 11/15/20 09:12 Lisinopril 5 Mg Tablet PO 5 mg DAILY CLAIRE Administration Protocol Loratadine 10 mg 11/11/20 09:00 11/15/20 09:11 Loratadine 10 Mg Tablet PO 10 mg DAILY CLAIRE Administration Magnesium Hydroxide 30 ml 11/10/20 22:18 11/12/20 18:20 Milk Of Magnesia 30 Ml Oral.Susp PO 30 ml DAILY PRN Administration Constipation Medroxyprogesterone Acetate 10 mg 11/11/20 09:00 11/15/20 09:10 Medroxyprogesterone Acetate 5 Mg Tablet PO 10 mg DAILY CLAIRE Administration Metformin HCl 1,000 mg 11/10/20 21:00 11/15/20 09:11 Metformin Hcl 1,000 Mg Tablet PO 1,000 mg BID CLAIRE Administration Metoprolol Succinate 50 mg 11/11/20 09:00 11/15/20 09:11 Metoprolol Succinate Er 50 Mg Tab.Er.24h PO 50 mg DAILY CLAIRE Administration Protocol Omeprazole 20 mg 11/11/20 06:30 11/15/20 06:53 Omeprazole 20 Mg Capsule.Dr PO 20 mg DAILY@0630 CLAIRE Administration Sertraline HCl 150 mg 11/11/20 09:00 11/15/20 09:09 Sertraline Hcl 50 Mg Tablet PO 150 mg DAILY CLAIRE Administration Tramadol HCl 50 mg 11/10/20 17:00 11/14/20 14:48 Tramadol Hcl 50 Mg Tablet PO 50 mg Q6H PRN Administration pain Trazodone HCl 50 mg 11/10/20 17:00 11/11/20 01:09 Trazodone Hcl 50 Mg Tablet PO 50 mg BEDTIME PRN Administration Sleep Warfarin Sodium 10 mg 11/10/20 18:30 11/14/20 17:18 Warfarin Sodium 10 Mg Tablet PO 10 mg DAILY@1700 CLAIRE Administration Allergies Allergies Allergy/AdvReac Type Severity Reaction Status Date / Time Penicillins [PENICILLINS] Allergy Intermediate HIVES Verified 09/26/20 21:54 egg [Egg] Allergy Mild SWELLING Verified 09/26/20 21:54 aspirin Allergy Unknown Unknown Verified 09/26/20 21:54 bee pollen [BEE STINGS] Allergy Unknown UNKNOWN Verified 09/26/20 21:54 lactose [LACTOSE] Allergy Unknown UNKNOWN Verified 09/26/20 21:54 latex [LATEX] Allergy Unknown HIVES Verified 09/26/20 21:54 oxycodone Allergy Unknown Unknown Verified 09/26/20 21:54 peanut [PEANUT] Allergy Unknown UNKNOWN Verified 09/26/20 21:54 penicillin V Allergy Unknown Unknown Verified 09/26/20 21:54 kiwi Allergy Anaphylaxis Verified 09/26/20 21:54 eggs,bees,latex,peanuts Allergy Unknown Unknown Uncoded 07/22/20 11:46 medical tape Allergy Unknown Unknown Uncoded 07/22/20 11:46 TAPE,PLASTIC Allergy Unknown RASH Uncoded 07/22/20 11:46 Assessment & Plan Assessment & Plan (1) Congestive heart failure with LV diastolic dysfunction, NYHA class 1: Status: Acute Code(s): I50.30 - Unspecified diastolic (congestive) heart failure (2) Borderline personality disorder: Status: Acute Code(s): F60.3 - Borderline personality disorder (3) Chronic post-traumatic stress disorder (PTSD): Status: Acute Code(s): F43.12 - Post-traumatic stress disorder, chronic Assessment and Plan: Ms. Mccann is a 45 year-old woman with hx of BPD, MDD, PTSD who self presented to [facility] ED due to increase depression, anxious mood, passive suicidal ideation, in context of feeling not supported by OP providers from [facility]. Pt is known to this unit through previous admission with similar presentation. PLAN: Continue current medications Obtain collateral information Aftercare planning/coordination of care with OP providers. (4) Diabetes type 2, uncontrolled: Qualifiers: Glycemic state: with hyperglycemia Qualified Code(s): E11.65 - Type 2 diabetes mellitus with hyperglycemia Status: Acute Code(s): E11.65 - Type 2 diabetes mellitus with hyperglycemia (5) Essential hypertension: Status: Acute Code(s): I10 - Essential (primary) hypertension Greater than 50% of the session was spent on counseling and/or coordination of care Reason for contiued inpatient stay Substantial Risk for: inability to function and med/psych decompensation
[2020-11-15 12:04] LABS: Glucose, Whole Blood 162 mg/dL (60-115)
[2020-11-15] MEDS: Insulin Lispro 100 UNIT/ML 3 ML VIAL SUBCUT ×2 (12:10→16:25)
[2020-11-15] MEDS: traMADoL HCL 50 MG TABLET PO (12:21)
[2020-11-15] MEDS: clonazePAM 0.5 MG TABLET PO ×2 (12:50→19:04)
[2020-11-15] MEDS: hydrOXYzine HCL 25 MG TABLET PO (16:07)
[2020-11-15 16:21] LABS: Glucose, Whole Blood 205 mg/dL (60-115)
[2020-11-15 16:55] VITALS: BP 112/66; PULSE 81; RESP 18; TEMP 36.3; O2SAT 93
[2020-11-15] MEDS: Warfarin Sodium 10 MG TABLET PO (17:08)
[2020-11-15 20:36] LABS: Glucose, Whole Blood 267 mg/dL (60-115)
[2020-11-15] MEDS: Insulin Glargine,Hum.rec.anlog 100 UNIT/ML 10 ML VIAL 36 UNIT SUBCUT (20:37)
[2020-11-15] MEDS: Atorvastatin Calcium 20 MG TABLET PO (20:38)
[2020-11-16 06:00] VITALS: BP 142/80; PULSE 76; RESP 16; TEMP 35.9; O2SAT 98
[2020-11-16] MEDS: Levothyroxine Sodium 75 MCG TABLET PO (06:47)
[2020-11-16] MEDS: Omeprazole 20 MG CAPSULE.DR PO (06:47)
[2020-11-16 07:02] LABS: Glucose, Whole Blood 78 mg/dL (60-115)
[2020-11-16 08:44] LABS: INTERNATIONAL NORM RATIO 2.9 (0.9-1.1); Prothrombin Time 34.3 SEC (9.9-13.0)
[2020-11-16] MEDS: medroxyPROGESTERone Acetate 5 MG TABLET 10 MG PO (09:28)
[2020-11-16] MEDS: Loratadine 10 MG TABLET PO (09:28)
[2020-11-16] MEDS: Furosemide 20 MG TABLET PO (09:29)
[2020-11-16] MEDS: metFORMIN HCl 1,000 MG TABLET 1000 MG PO ×2 (09:29→22:47)
[2020-11-16 09:30] VITALS: BP 118/58; PULSE 82
[2020-11-16] MEDS: lisinopriL 5 MG TABLET PO (09:30)
[2020-11-16] MEDS: Metoprolol Succinate ER 50 MG TAB.ER.24H PO (09:30)
[2020-11-16] MEDS: Sertraline HCL 50 MG TABLET 150 MG PO (09:31)
--- NOTE | 2020-11-16 10:36 | P.PNPSI_ITS ---
Subjective Subjective Date of Service: 11/16/20 Reason For Visit: HI, SI Subjective Notes: Conditional Voluntary Interim History: felt anxious with noise on unit but able to calm self; pseudoseizures; most recent 11/14/20 evening Medication Compliance: Yes Side effects from medications: No Attending Groups: Yes Review of Systems Acute medical concerns: No Medical Review of Systems: unchanged Review of Systems: psuedoseizures Review of Systems Review of Systems Constitutional : No Fever, No Chills ENT/Mouth : No Ear Pain, No Nasal Congestion, No sore throat Eyes: No Eye Pain, No Swelling, No Redness Cardiovascular : No Chest Pain, No SOB Respiratory : No Cough, No Sputum, No Dyspnea Gastrointestinal : No Nausea, No Vomiting, No Diarrhea, No Hematochezia, No Melena Genitourinary : No Dysuria, No Urinary Frequency, No Hematuria Musculoskeletal : No Myalgias Skin : No Skin Lesions, No rash Neuro : No Weakness, No Numbness, No Paresthesias, No Dizziness, No Headache Psych : positive Anxiety, positive Depression, positive SI/HI Heme/Lymph: No Lymphadenopathy Endocrine : No Polyuria, No Polydipsia Yes all other systems are reviewed and are negative Constitutional: Reports fatigue, Denies increased appetite, Denies poor appetite and Denies weight gain Eyes: Denies blurry vision and Denies diplopia Cardiovascular: Denies lightheadedness, Denies dyspnea, Denies dyspnea on exertion and Denies orthopnea Respiratory: Denies dyspnea and Denies dyspnea on exertion Gastrointestinal: Denies constipation, Denies heartburn, Denies diarrhea, Denies loose stools and Denies vomiting Reports system reviewed and no additional complaints, except as documented and Reports seizure-like activity Endocrine: Reports fatigue Mental Status Exam Mental Status Exam Narrative: Appearance: casually groomed, fair hygiene Behavior:cooperative psychomotor:no agitation or retardation noted Speech:clear, normal rate/rhythm/volume, spontaneous Thought process: tangential Thought content:feeling not supported by OP providers Mood: depressed anxious Affect: blunted, dysphoric at times SI:passive, no plan or intent HI:none VH/AH:AH not command Delusions:none Memory/cog: alert, oriented x 3. grossly intact Diagnostics Vital Signs (24Hr): Vital Signs - 24 hr 11/15/20 16:55 11/16/20 06:00 11/16/20 09:30 Temperature 97.4 F 96.7 F L Pulse Rate 81 76 82 Respiratory Rate 18 16 Blood Pressure 112/66 142/80 H 118/58 L Pulse Oximetry 93 98 Body Mass Index 54.3 Labs Results: 11/10/20 15:47 11/10/20 15:48 Labs: Laboratory Results - last 48 hr 11/14/20 11/14/20 11/14/20 11:52 17:07 20:29 PT INR POC Glucose 136 H 240 H 175 H 11/14/20 11/15/20 11/15/20 22:44 06:56 07:28 PT 30.4 H INR 2.6 H POC Glucose 194 H 115 11/15/20 11/15/20 11/15/20 12:00 16:17 20:33 PT INR POC Glucose 162 H 205 H 267 H 11/16/20 11/16/20 06:52 08:26 PT 34.3 H INR 2.9 H POC Glucose 78 Medications Medications Current Medications Generic Name Dose Route Start Last Admin Trade Name Freq PRN Reason Stop Dose Admin Acetaminophen 650 mg 11/10/20 22:18 11/13/20 22:57 Acetaminophen 325 Mg Tablet PO 650 mg Q6H PRN Administration Headache/Pain Mild Scale (1-3) Al Hydroxide/Mg Hydroxide 30 ml 11/10/20 22:18 Magnesium Hydrox/Alum Hydrox 30 Ml Oral.Susp PO Q6H PRN Heartburn/Nausea Albuterol Sulfate 2.5 mg 11/10/20 17:00 11/15/20 04:32 Albuterol Sulfate (0.083%) 2.5 Mg/3 Ml Vial.Neb INHALE 2.5 mg QID PRN Administration Allergic Reaction Albuterol Sulfate 2 puff 11/10/20 17:00 11/13/20 19:21 Albuterol Sulfate 90 Mcg 8 Gm Inhaler INHALE 2 puff Q4H PRN Administration COUGH/WHEEZE Atorvastatin Calcium 20 mg 11/11/20 21:00 11/15/20 20:38 Atorvastatin Calcium 20 Mg Tablet PO 20 mg BEDTIME CLAIRE Administration Clonazepam 0.5 mg 11/15/20 18:59 11/15/20 19:04 Clonazepam 0.5 Mg Tablet PO 0.5 mg BID PRN Administration anxiety/restlessness Furosemide 20 mg 11/11/20 09:00 11/16/20 09:29 Furosemide 20 Mg Tablet PO 20 mg DAILY CLAIRE Administration Protocol Hydroxyzine HCl 25 mg 11/10/20 22:18 11/15/20 16:07 Hydroxyzine Hcl 25 Mg Tablet PO 25 mg Q6H PRN Administration Anxiety Insulin Glargine 36 unit 11/10/20 21:00 11/15/20 20:37 Insulin Glargine,Hum.Rec.Anlog 100 Unit/Ml 10 Ml Vial SUBCUT 36 unit BEDTIME [facility] Administration Insulin Human Lispro 0 unit 11/11/20 07:30 11/16/20 08:38 Insulin Lispro 100 Unit/Ml 3 Ml Vial SUBCUT Not Given TIDAC [facility] Protocol Levothyroxine Sodium 75 mcg 11/11/20 06:00 11/16/20 06:47 Levothyroxine Sodium 75 Mcg Tablet PO 75 mcg DAILY@0600 CLAIRE Administration Lisinopril 5 mg 11/11/20 09:00 11/16/20 09:30 Lisinopril 5 Mg Tablet PO 5 mg DAILY CLAIRE Administration Protocol Loratadine 10 mg 11/11/20 09:00 11/16/20 09:28 Loratadine 10 Mg Tablet PO 10 mg DAILY CLAIRE Administration Magnesium Hydroxide 30 ml 11/10/20 22:18 11/12/20 18:20 Milk Of Magnesia 30 Ml Oral.Susp PO 30 ml DAILY PRN Administration Constipation Medroxyprogesterone Acetate 10 mg 11/11/20 09:00 11/16/20 09:28 Medroxyprogesterone Acetate 5 Mg Tablet PO 10 mg DAILY CLAIRE Administration Metformin HCl 1,000 mg 11/10/20 21:00 11/16/20 09:29 Metformin Hcl 1,000 Mg Tablet PO 1,000 mg BID CLAIRE Administration Metoprolol Succinate 50 mg 11/11/20 09:00 11/16/20 09:30 Metoprolol Succinate Er 50 Mg Tab.Er.24h PO 50 mg DAILY CLAIRE Administration Protocol Omeprazole 20 mg 11/11/20 06:30 11/16/20 06:47 Omeprazole 20 Mg Capsule.Dr PO 20 mg DAILY@0630 CLAIRE Administration Sertraline HCl 150 mg 11/11/20 09:00 11/16/20 09:31 Sertraline Hcl 50 Mg Tablet PO 150 mg DAILY CLAIRE Administration Trazodone HCl 50 mg 11/10/20 17:00 08/17/21 01:09 Trazodone Hcl 50 Mg Tablet PO 50 mg BEDTIME PRN Administration Sleep Warfarin Sodium 10 mg 11/10/20 18:30 11/15/20 17:08 Warfarin Sodium 10 Mg Tablet PO 10 mg DAILY@1700 CLAIRE Administration Allergies Allergies Allergy/AdvReac Type Severity Reaction Status Date / Time Penicillins [PENICILLINS] Allergy Intermediate HIVES Verified 09/26/20 21:54 egg [Egg] Allergy Mild SWELLING Verified 09/26/20 21:54 aspirin Allergy Unknown Unknown Verified 09/26/20 21:54 bee pollen [BEE STINGS] Allergy Unknown UNKNOWN Verified 09/26/20 21:54 lactose [LACTOSE] Allergy Unknown UNKNOWN Verified 09/26/20 21:54 latex [LATEX] Allergy Unknown HIVES Verified 09/26/20 21:54 oxycodone Allergy Unknown Unknown Verified 09/26/20 21:54 peanut [PEANUT] Allergy Unknown UNKNOWN Verified 09/26/20 21:54 penicillin V Allergy Unknown Unknown Verified 09/26/20 21:54 kiwi Allergy Anaphylaxis Verified 09/26/20 21:54 eggs,bees,latex,peanuts Allergy Unknown Unknown Uncoded 07/22/20 11:46 medical tape Allergy Unknown Unknown Uncoded 07/22/20 11:46 TAPE,PLASTIC Allergy Unknown RASH Uncoded 07/22/20 11:46 Assessment & Plan Assessment & Plan (1) Congestive heart failure with LV diastolic dysfunction, NYHA class 1: Status: Acute Code(s): I50.30 - Unspecified diastolic (congestive) heart failure (2) Borderline personality disorder: Status: Acute Code(s): F60.3 - Borderline personality disorder (3) Chronic post-traumatic stress disorder (PTSD): Status: Acute Code(s): F43.12 - Post-traumatic stress disorder, chronic Assessment and Plan: Ms. Mccann is a 45 year-old woman with hx of BPD, MDD, PTSD who self presented to [facility] ED due to increase depression, anxious mood, passive suicidal ideation, in context of feeling not supported by OP providers from [facility]. Pt is known to this unit through previous admission with similar presentation. PLAN: Continue current medications Obtain collateral information Aftercare planning/coordination of care with OP providers. (4) Diabetes type 2, uncontrolled: Qualifiers: Glycemic state: with hyperglycemia Qualified Code(s): E11.65 - Type 2 diabetes mellitus with hyperglycemia Status: Acute Code(s): E11.65 - Type 2 diabetes mellitus with hyperglycemia (5) Essential hypertension: Status: Acute Code(s): I10 - Essential (primary) hypertension Greater than 50% of the session was spent on counseling and/or coordination of care Patient educated on: diagnosis and medication risk/benefits Informed Consent: further education needed Reason for contiued inpatient stay Substantial Risk for: harm to self, inability to function and rapid decompensation
[2020-11-16 12:35] LABS: Glucose, Whole Blood 160 mg/dL (60-115)
[2020-11-16] MEDS: Insulin Lispro 100 UNIT/ML 3 ML VIAL SUBCUT (12:35)
[2020-11-16 16:30] VITALS: BP 133/66; PULSE 86; TEMP 36.1
[2020-11-16] MEDS: Acetaminophen 325 MG TABLET 650 MG PO (16:35)
[2020-11-16] MEDS: Warfarin Sodium 10 MG TABLET PO (16:36)
[2020-11-16] MEDS: traMADoL HCL 50 MG TABLET PO (17:40)
[2020-11-16 22:05] LABS: Glucose, Whole Blood 93 mg/dL (60-115)
[2020-11-16] MEDS: Insulin Glargine,Hum.rec.anlog 100 UNIT/ML 10 ML VIAL 36 UNIT SUBCUT (22:46)
[2020-11-16] MEDS: Atorvastatin Calcium 20 MG TABLET PO (22:47)
[2020-11-16 22:58] LABS: Glucose, Whole Blood 379 mg/dL (60-115)
--- NOTE | 2020-11-16 23:55 | PC.NURSE ---
Pt had a POC BS of 379 at 2243. Pt rcvd Lantus [address] Augustin was informed and had no additional orders.
[2020-11-17] MEDS: Omeprazole 20 MG CAPSULE.DR PO (07:14)
[2020-11-17] MEDS: Levothyroxine Sodium 75 MCG TABLET PO (07:14)
[2020-11-17 07:25] LABS: Glucose, Whole Blood 122 mg/dL (60-115)
[2020-11-17 08:38] VITALS: BP 133/63; PULSE 79; TEMP 36; O2SAT 92
[2020-11-17 08:40] VITALS: BP 133/63; PULSE 79
[2020-11-17] MEDS: lisinopriL 5 MG TABLET PO (08:40)
[2020-11-17 08:41] VITALS: BP 133/63; PULSE 79
[2020-11-17] MEDS: Metoprolol Succinate ER 50 MG TAB.ER.24H PO (08:41)
[2020-11-17] MEDS: Sertraline HCL 50 MG TABLET 150 MG PO (08:41)
[2020-11-17] MEDS: Furosemide 20 MG TABLET PO (08:41)
[2020-11-17] MEDS: metFORMIN HCl 1,000 MG TABLET 1000 MG PO (08:41)
[2020-11-17] MEDS: medroxyPROGESTERone Acetate 5 MG TABLET 10 MG PO (08:41)
[2020-11-17] MEDS: Loratadine 10 MG TABLET PO (08:45)
[2020-11-17 08:58] LABS: Creatinine Clr Calc Pharmacy 121.6; Estimated Glomerular Filt Rate > 60
[2020-11-17 09:05] LABS: INTERNATIONAL NORM RATIO 2.8 (0.9-1.1)
[2020-11-17 11:34] LABS: Glucose, Whole Blood 236 mg/dL (60-115)
[2020-11-17] MEDS: Insulin Lispro 100 UNIT/ML 3 ML VIAL SUBCUT (12:25)
--- NOTE | 2020-11-17 14:25 | PM.PSYDC ---
DS: Providers Provider Date of Service: 01/17/21 Date of admission: 11/10/20 22:15 Primary care physician: Renee Saavedra MD DS: Diagnosis Discharge Diagnosis (1) Congestive heart failure with LV diastolic dysfunction, NYHA class 1: Status: Acute (2) Borderline personality disorder: Status: Acute (3) Chronic post-traumatic stress disorder (PTSD): Status: Acute (4) Diabetes type 2, uncontrolled: Status: Acute (5) Essential hypertension: Status: Acute DS: Medications Discharge Medications Home Medications: Home Medications Medication Instructions Recorded Confirmed medroxyprogesterone 10 mg tablet 10 mg PO DAILY 12/26/19 11/10/20 (Provera) levothyroxine 75 mcg tablet 75 mcg PO DAILY 04/07/20 11/10/20 metformin 1,000 mg tablet 1,000 mg PO BID 04/07/20 11/10/20 blood sugar diagnostic #10 ea 05/06/20 07/22/20 dulaglutide 3 mg/0.5 mL 3 mg SUBCUT FR 11/10/20 11/10/20 subcutaneous pen injector (Trulicity) Previous Rx's Medication Instructions Recorded insulin glargine U-300 conc 300 45 unit SUBCUT BEDTIME 30 Days #6 07/22/20 unit/mL (3 mL) subcutaneous pen ml (Toujeo Max U-300 SoloStar) insulin lispro 100 unit/mL See Rx Instructions SUBCUT TID 30 11/05/20 subcutaneous pen (Humalog Kw Days #15 ml (U-100) Insulin) acetaminophen 325 mg tablet 650 mg PO Q6H PRN #30 tab 11/17/20 albuterol sulfate 2.5 mg INHALATION QID PRN #3 ml 11/17/20 atorvastatin 20 mg tablet 20 mg PO BEDTIME #30 tab 11/17/20 clonazepam 0.5 mg tablet 0.5 mg PO BID PRN #15 tab 11/17/20 furosemide 20 mg tablet 20 mg PO DAILY #30 tab 11/17/20 lisinopril 5 mg tablet 5 mg PO DAILY #30 tab 11/17/20 loratadine 10 mg tablet 10 mg PO DAILY #30 tab 11/17/20 metoprolol succinate 50 mg 50 mg PO DAILY #30 tab 11/17/20 tablet,extended release 24 hr omeprazole 20 mg capsule,delayed 20 mg PO DAILY@0630 #30 cap 11/17/20 release sertraline 50 mg tablet 150 mg PO DAILY #30 tab 11/17/20 trazodone 50 mg tablet 50 mg PO BEDTIME PRN #30 tab 11/17/20 warfarin 10 mg tablet (Jantoven) 10 mg PO DAILY@1700 #30 tab 11/17/20 Mental Status Exam Mental Status Exam Narrative: Appearance: casually groomed, fair hygiene Behavior:cooperative psychomotor:no agitation or retardation noted Speech:clear, normal rate/rhythm/volume, spontaneous Thought process: tangential Thought content:feeling not supported by OP providers Mood: better Affect: brighter SI:none HI:none VH/AH:AH not command Delusions:none Memory/cog: alert, oriented x 3. grossly intact Data Data Completed and Pending Completed studies during hospitalization [Text1]: 11/10/20 11/10/20 11/10/20 13:12 14:29 15:47 WBC 11.0 H RBC 5.08 Hgb 12.3 Hct 40.5 MCV 79.7 L MCH 24.2 L MCHC 30.4 L RDW 20.0 H Plt Count 360 MPV 9.9 Immature Gran % (Auto) 0.3 Neut % (Auto) 67.6 Lymph % (Auto) 23.9 [place] % (Auto) 6.3 Eos % (Auto) 1.4 Baso % (Auto) 0.5 Lymph # (Auto) 2.6 [place] # (Auto) 0.7 Eos # (Auto) 0.2 Baso # (Auto) 0.1 Abs Immat Gran (auto) 0.03 Absolute Neuts (auto) 7.5 Absolute Nucleated RBC 0.030 H Nucleated RBC % (auto) 0.3 H PT INR Sodium Potassium Chloride Carbon Dioxide Anion Gap BUN Creatinine Estim Creat Clear Calc Estimated GFR POC Glucose Random Glucose Calcium Urine RBC 0-2 Urine WBC 0-2 Ur Squamous Epith Cells TRACE Urine Bacteria NONE COVID-19 (JERICA) Negative COVID-19 Clin Com See Note 11/10/20 11/10/20 11/10/20 15:48 17:57 18:33 WBC RBC Hgb Hct MCV MCH MCHC RDW Plt Count MPV Immature Gran % (Auto) Neut % (Auto) Lymph % (Auto) [place] % (Auto) Eos % (Auto) Baso % (Auto) Lymph # (Auto) [place] # (Auto) Eos # (Auto) Baso # (Auto) Abs Immat Gran (auto) Absolute Neuts (auto) Absolute Nucleated RBC Nucleated RBC % (auto) PT 22.1 H INR 1.9 H Sodium 142 Potassium 4.3 Chloride 104 Carbon Dioxide 27 Anion Gap 15 BUN 14 Creatinine 0.90 Estim Creat Clear Calc 121.4 Estimated GFR > 60 POC Glucose 116 H Random Glucose 100 D Calcium 9.9 D Urine RBC Urine WBC Ur Squamous Epith Cells Urine Bacteria COVID-19 (JERICA) COVID-19 [facility] 11/10/20 11/11/20 11/11/20 22:23 00:39 06:11 WBC RBC Hgb Hct MCV MCH MCHC RDW Plt Count MPV Immature Gran % (Auto) Neut % (Auto) Lymph % (Auto) [place] % (Auto) Eos % (Auto) Baso % (Auto) Lymph # (Auto) [place] # (Auto) Eos # (Auto) Baso # (Auto) Abs Immat Gran (auto) Absolute Neuts (auto) Absolute Nucleated RBC Nucleated RBC % (auto) PT INR Sodium Potassium Chloride Carbon Dioxide Anion Gap BUN Creatinine Estim Creat Clear Calc Estimated GFR POC Glucose 129 H 204 H 228 H Random Glucose Calcium Urine RBC Urine WBC Ur Squamous Epith Cells Urine Bacteria COVID-19 (JERICA) COVID-19 [facility] 11/11/20 11/11/20 11/11/20 07:34 10:39 17:17 WBC RBC Hgb Hct MCV MCH MCHC RDW Plt Count MPV Immature Gran % (Auto) Neut % (Auto) Lymph % (Auto) [place] % (Auto) Eos % (Auto) Baso % (Auto) Lymph # (Auto) [place] # (Auto) Eos # (Auto) Baso # (Auto) Abs Immat Gran (auto) Absolute Neuts (auto) Absolute Nucleated RBC Nucleated RBC % (auto) PT 22.5 H INR 2.0 H Sodium Potassium Chloride Carbon Dioxide Anion Gap BUN Creatinine Estim Creat Clear Calc Estimated GFR POC Glucose 289 H 178 H Random Glucose Calcium Urine RBC Urine WBC Ur Squamous Epith Cells Urine Bacteria COVID-19 (JERICA) COVID-19 [facility] 11/11/20 11/12/20 11/12/20 22:18 06:17 08:13 WBC RBC Hgb Hct MCV MCH MCHC RDW Plt Count MPV Immature Gran % (Auto) Neut % (Auto) Lymph % (Auto) [place] % (Auto) Eos % (Auto) Baso % (Auto) Lymph # (Auto) [place] # (Auto) Eos # (Auto) Baso # (Auto) Abs Immat Gran (auto) Absolute Neuts (auto) Absolute Nucleated RBC Nucleated RBC % (auto) PT 30.5 H D INR 2.6 H Sodium Potassium Chloride Carbon Dioxide Anion Gap BUN Creatinine Estim Creat Clear Calc Estimated GFR POC Glucose 231 H 137 H Random Glucose Calcium Urine RBC Urine WBC Ur Squamous Epith Cells Urine Bacteria COVID-19 (JERICA) COVID-19 [facility] 11/12/20 11/12/20 11/12/20 12:14 17:15 21:14 WBC RBC Hgb Hct MCV MCH MCHC RDW Plt Count MPV Immature Gran % (Auto) Neut % (Auto) Lymph % (Auto) [place] % (Auto) Eos % (Auto) Baso % (Auto) Lymph # (Auto) [place] # (Auto) Eos # (Auto) Baso # (Auto) Abs Immat Gran (auto) Absolute Neuts (auto) Absolute Nucleated RBC Nucleated RBC % (auto) PT INR Sodium Potassium Chloride Carbon Dioxide Anion Gap BUN Creatinine Estim Creat Clear Calc Estimated GFR POC Glucose 220 H 148 H 262 H Random Glucose Calcium Urine RBC Urine WBC Ur Squamous Epith Cells Urine Bacteria COVID-19 (JERICA) COVID-[facility] 11/13/20 11/13/20 11/13/20 06:41 12:21 13:41 WBC RBC Hgb Hct MCV MCH MCHC RDW Plt Count MPV Immature Gran % (Auto) Neut % (Auto) Lymph % (Auto) [place] % (Auto) Eos % (Auto) Baso % (Auto) Lymph # (Auto) [place] # (Auto) Eos # (Auto) Baso # (Auto) Abs Immat Gran (auto) Absolute Neuts (auto) Absolute Nucleated RBC Nucleated RBC % (auto) PT 35.6 H INR 3.1 H Sodium Potassium Chloride Carbon Dioxide Anion Gap BUN Creatinine Estim Creat Clear Calc Estimated GFR POC Glucose 167 H 299 H Random Glucose Calcium Urine RBC Urine WBC Ur Squamous Epith Cells Urine Bacteria COVID-19 (JERICA) COVID-[facility] 11/13/20 11/13/20 11/14/20 16:33 21:17 06:20 WBC RBC Hgb Hct MCV MCH MCHC RDW Plt Count MPV Immature Gran % (Auto) Neut % (Auto) Lymph % (Auto) [place] % (Auto) Eos % (Auto) Baso % (Auto) Lymph # (Auto) [place] # (Auto) Eos # (Auto) Baso # (Auto) Abs Immat Gran (auto) Absolute Neuts (auto) Absolute Nucleated RBC Nucleated RBC % (auto) PT INR Sodium Potassium Chloride Carbon Dioxide Anion Gap BUN Creatinine Estim Creat Clear Calc Estimated GFR POC Glucose 298 H 215 H 103 Random Glucose Calcium Urine RBC Urine WBC Ur Squamous Epith Cells Urine Bacteria COVID-19 (JERICA) COVID-19 [facility] 11/14/20 11/14/20 11/14/20 08:09 11:52 17:07 WBC RBC Hgb Hct MCV MCH MCHC RDW Plt Count MPV Immature Gran % (Auto) Neut % (Auto) Lymph % (Auto) [place] % (Auto) Eos % (Auto) Baso % (Auto) Lymph # (Auto) [place] # (Auto) Eos # (Auto) Baso # (Auto) Abs Immat Gran (auto) Absolute Neuts (auto) Absolute Nucleated RBC Nucleated RBC % (auto) PT 35.5 H INR 3.0 H Sodium Potassium Chloride Carbon Dioxide Anion Gap BUN Creatinine Estim Creat Clear Calc Estimated GFR POC Glucose 136 H 240 H Random Glucose Calcium Urine RBC Urine WBC Ur Squamous Epith Cells Urine Bacteria COVID-19 (JERICA) COVID-[facility] 11/14/20 11/14/20 11/15/20 20:29 22:44 06:56 WBC RBC Hgb Hct MCV MCH MCHC RDW Plt Count MPV Immature Gran % (Auto) Neut % (Auto) Lymph % (Auto) [place] % (Auto) Eos % (Auto) Baso % (Auto) Lymph # (Auto) [place] # (Auto) Eos # (Auto) Baso # (Auto) Abs Immat Gran (auto) Absolute Neuts (auto) Absolute Nucleated RBC Nucleated RBC % (auto) PT INR Sodium Potassium Chloride Carbon Dioxide Anion Gap BUN Creatinine Estim Creat Clear Calc Estimated GFR POC Glucose 175 H 194 H 115 Random Glucose Calcium Urine RBC Urine WBC Ur Squamous Epith Cells Urine Bacteria COVID-19 (JERICA) COVID-[facility] 11/15/20 11/15/20 11/15/20 07:28 12:00 16:17 WBC RBC Hgb Hct MCV MCH MCHC RDW Plt Count MPV Immature Gran % (Auto) Neut % (Auto) Lymph % (Auto) [place] % (Auto) Eos % (Auto) Baso % (Auto) Lymph # (Auto) [place] # (Auto) Eos # (Auto) Baso # (Auto) Abs Immat Gran (auto) Absolute Neuts (auto) Absolute Nucleated RBC Nucleated RBC % (auto) PT 30.4 H INR 2.6 H Sodium Potassium Chloride Carbon Dioxide Anion Gap BUN Creatinine Estim Creat Clear Calc Estimated GFR POC Glucose 162 H 205 H Random Glucose Calcium Urine RBC Urine WBC Ur Squamous Epith Cells Urine Bacteria COVID-19 (JERICA) COVID-[facility] 11/15/20 11/16/20 11/16/20 20:33 06:52 08:26 WBC RBC Hgb Hct MCV MCH MCHC RDW Plt Count MPV Immature Gran % (Auto) Neut % (Auto) Lymph % (Auto) [place] % (Auto) Eos % (Auto) Baso % (Auto) Lymph # (Auto) [place] # (Auto) Eos # (Auto) Baso # (Auto) Abs Immat Gran (auto) Absolute Neuts (auto) Absolute Nucleated RBC Nucleated RBC % (auto) PT 34.3 H INR 2.9 H Sodium Potassium Chloride Carbon Dioxide Anion Gap BUN Creatinine Estim Creat Clear Calc Estimated GFR POC Glucose 267 H 78 Random Glucose Calcium Urine RBC Urine WBC Ur Squamous Epith Cells Urine Bacteria COVID-19 (JERICA) [facility] 11/16/20 11/16/20 11/16/20 12:30 16:54 22:43 WBC RBC Hgb Hct MCV MCH MCHC RDW Plt Count MPV Immature Gran % (Auto) Neut % (Auto) Lymph % (Auto) [place] % (Auto) Eos % (Auto) Baso % (Auto) Lymph # (Auto) [place] # (Auto) Eos # (Auto) Baso # (Auto) Abs Immat Gran (auto) Absolute Neuts (auto) Absolute Nucleated RBC Nucleated RBC % (auto) PT INR Sodium Potassium Chloride Carbon Dioxide Anion Gap BUN Creatinine Estim Creat Clear Calc Estimated GFR POC Glucose 160 H 93 379 H* Random Glucose Calcium Urine RBC Urine WBC Ur Squamous Epith Cells Urine Bacteria COVID-19 (JERICA) COVID-[facility] 11/17/20 11/17/20 11/17/20 07:16 08:12 08:32 WBC RBC Hgb Hct MCV MCH MCHC RDW Plt Count MPV Immature Gran % (Auto) Neut % (Auto) Lymph % (Auto) [place] % (Auto) Eos % (Auto) Baso % (Auto) Lymph # (Auto) [place] # (Auto) Eos # (Auto) Baso # (Auto) Abs Immat Gran (auto) Absolute Neuts (auto) Absolute Nucleated RBC Nucleated RBC % (auto) PT 32.0 H INR 2.8 H Sodium Potassium Chloride Carbon Dioxide Anion Gap BUN Creatinine 0.91 Estim Creat Clear Calc 121.6 Estimated GFR > 60 POC Glucose 122 H Random Glucose Calcium Urine RBC Urine WBC Ur Squamous Epith Cells Urine Bacteria COVID-19 (JERICA) COVID-19 Clin Com 11/17/20 11:29 WBC RBC Hgb Hct MCV MCH MCHC RDW Plt Count MPV Immature Gran % (Auto) Neut % (Auto) Lymph % (Auto) [place] % (Auto) Eos % (Auto) Baso % (Auto) Lymph # (Auto) [place] # (Auto) Eos # (Auto) Baso # (Auto) Abs Immat Gran (auto) Absolute Neuts (auto) Absolute Nucleated RBC Nucleated RBC % (auto) PT INR Sodium Potassium Chloride Carbon Dioxide Anion Gap BUN Creatinine Estim Creat Clear Calc Estimated GFR POC Glucose 236 H Random Glucose Calcium Urine RBC Urine WBC Ur Squamous Epith Cells Urine Bacteria COVID-19 (JERICA) COVID-19 Clin Com DS: Summary Hospital Course Hospital Course: Subjective Notes: Conditional Voluntary Narrative: Ms. Mccann is a 45 year-old woman with hx of BPD, MDD and PTSD who self presented [facility] reporting increase depression, suicidal ideation in context with problems with his repayee through [employer]. In the ED, her utox is negative for opioid, amphetamines, benzos. On the unit, Ms. Mccann reports that she has been feeling very depressed, upset with outpatient providers from [facility] which she reports are taking her money. She reports limited support from providers and ruminates about this. She reports passive suicidal. She denies any plan or intent. She reports she hears voices at times. She reports when feeling frustrated and overwhelmed, she becomes someone else. She reports feeling easily frustrated. She also reports being impulsive when feeling angry and frustrated. She reports sleep is fine with CPAP. Past Psychiatric History: Inpatient admission: hx of inpatient admission but no details available. Pt not able or willing to provide this information. ? Outpatient: [facility] ([phone]) prescriber Arcadio Jaramillo; therapist Georgiana. She also has peers specialist, Reina and bilingual patient support caseworker Cherry. Medical Evaluation Reviewed: Yes HOSPITAL COURSE On the unit, pt was placed on 15 minutes checks and admitted on a CV. Pt reports most distressed, anxious mood and depression comes from fact that she has not been able as close with outreach team from [facility]. There also was problems with her repayee. Pt does identify not seeing providers as often as she used to as a form of abandonment. Collateral information gathered from her [facility] providers who do admit problems/delay in payments with repayee. We discussed risks, benefits and alternative treatment options. Pt does report medications ahve worked for the most part and would like to continue what she is taking at current doses. Pt was continued on sertraline. Pt was gradually more visible in the unit. She was increasingly more social with peers. She ahd meeting with OP providers from [facility], which help navigate problems with OP supports. Pt denied SI/HI throughout this admission. No incidences of disruptive behaviors nor use of restraints. Status at Discharge Cognitive/behavioral status at discharge: Pt with brighter affect. She denied SI/HI. No signs of aggression towards self or others. Functional status at discharge: independent ambulation Overall status at discharge: patient is progressing back to baseline Time Spent with Patient Time attestation: Total time spent providing and/or coordinating discharge services: Discharge Plan Discharge Patient Disposition: Home, Self-Care Discharge Diagnosis: MDD, recurrent, moderate BPD Referrals: Greta Visiting RN [Other] - 1 Week (Fax- [phone]) Therapist: Georgiana Sharp ([facility]) [Other] - 11/24/20 12:30 pm (Telehealth ) Psych Prescriber: Arcadio Jaramillo ([facility]) [Other] - 11/19/20 10:20 am (Telehealth) Renee Saavedra MD [Primary Care Provider] - 1 Week Discharge Medications: New albuterol sulfate 2.5 mg /3 mL (0.083 %) Solution For Nebulization 2.5 mg inhalation QID PRN (Reason: Allergic Reaction) Qty: 3 RF: 0 loratadine 10 mg Tablet 10 mg PO DAILY Qty: 30 RF: 0 acetaminophen 325 mg Tablet 650 mg PO Q6H PRN (Reason: Headache/Pain Mild Scale (1-3)) Qty: 30 RF: 0 atorvastatin 20 mg Tablet 20 mg PO BEDTIME Qty: 30 RF: 0 trazodone 50 mg Tablet 50 mg PO BEDTIME PRN (Reason: Sleep) Qty: 30 RF: 0 metoprolol succinate 50 mg Tablet Extended Release 24 Hr 50 mg PO DAILY Qty: 30 RF: 0 warfarin [Jantoven] 10 mg Tablet 10 mg PO DAILY@1700 Qty: 30 RF: 0 clonazepam 0.5 mg Tablet 0.5 mg PO BID PRN (Reason: Anxiety/Restlessness) Qty: 15 RF: 0 omeprazole 20 mg Capsule,Delayed Release(Dr/Ec) 20 mg PO DAILY@0630 Qty: 30 RF: 0 lisinopril 5 mg Tablet 5 mg PO DAILY Qty: 30 RF: 0 furosemide 20 mg Tablet 20 mg PO DAILY Qty: 30 RF: 0 sertraline 50 mg Tablet 150 mg PO DAILY Qty: 30 RF: 0 Continued insulin lispro [Humalog KwikPen Insulin] 100 unit/mL insulin pen See Rx Instructions subcut TID 30 Days Qty: 15 RF: 3 medroxyprogesterone [Provera] 10 mg Tablet 10 mg PO DAILY RF: 0 levothyroxine 75 mcg tablet 75 mcg PO DAILY RF: 0 metformin 1,000 mg tablet 1,000 mg PO BID RF: 0 (DME) blood sugar diagnostic Strip See Rx Instructions strip .ROUTE .MEDSUPPLY Qty: 10 RF: 0 Toujeo Max U-300 SoloStar 300 unit/mL (3 mL) insulin pen 45 unit subcut BEDTIME 30 Days Qty: 6 RF: 3 Discontinued albuterol sulfate 2.5 mg /3 mL (0.083 %) Solution For Nebulization 2.5 mg INHALATION QID PRN (Reason: Allergic Reaction) RF: 0 trazodone 50 mg Tablet 50 mg PO BEDTIME PRN (Reason: Sleep) RF: 0 metoprolol succinate 50 mg Tablet Extended Release 24 Hr 50 mg PO DAILY RF: 0 omeprazole 20 mg Capsule,Delayed Release(Dr/Ec) 20 mg PO DAILY RF: 0 lisinopril 5 mg Tablet 5 mg PO DAILY RF: 0 albuterol sulfate [ProAir HFA] 90 mcg/actuation Hfa Aerosol Inhaler 2 puff INHALATION Q4-6H PRN (Reason: COUGH/WHEEZE) RF: 0 atorvastatin 20 mg tablet 20 mg PO DAILY RF: 0 clonazepam 1 mg tablet 0.5 tab PO BID PRN (Reason: anxiety) RF: 0 loratadine 10 mg tablet 10 mg PO DAILY RF: 0 warfarin 5 mg tablet 10 mg PO DAILY RF: 0 tramadol 50 mg tablet 1 tab PO Q6H PRN (Reason: pain) RF: 0 furosemide [Lasix] 20 mg tablet 20 mg PO DAILY RF: 0 sertraline 100 mg tablet 150 mg PO DAILY RF: 0 No Action Trulicity 3 mg/0.5 mL pen injector 3 mg subcut FR Qty: 2 RF: 3 azithromycin [Zithromax Z-Mykel] 250 mg tablet See Rx Instructions .ROUTE .COMPLEX Qty: 6 RF: 0 prednisone 20 mg tablet 40 mg PO DAILY Qty: 10 RF: 0 Discharge Orders: Discharge Order (Routine); Ordered 11/17/20 Ordered By: Adeline Sanchez Diet: diabetic diet Activity on Discharge: As tolerated Stand Alone Forms: Patient Portal Discharge page Care Plan Goals: 1 Maintain mood 2. No SI/HI Health Concerns: follow up with PCP Plan of Treatment: 1. Take medications as prescribed 2. Go to nearest ED or call 911 in event of emergency Assessment: stable mood. NO SI/HI. Discharge Date/Time: 11/17/20 14:50
== END 2020-11-17 14:50 | disposition home or self-care (01) | DRG 751 ==
LOC: HO.ED 16:21 → HO.PM5 22:24
PROVIDERS: Admitting Provider Registered Nurse; Emergency Provider Internal Medicine; PCP Internal Medicine; Visit Provider Social Worker
DX: F33.1 Major depressive disorder, recurrent, moderate (principal); R45.851 Suicidal ideations; E11.65 Type 2 diabetes mellitus with hyperglycemia; I11.0 Hypertensive heart disease with heart failure; I50.30 Unspecified diastolic (congestive) heart failure; F60.3 Borderline personality disorder; F43.12 Post-traumatic stress disorder, chronic; Z20.822 Contact with and (suspected) exposure to COVID-19; Z79.01 Long term (current) use of anticoagulants; Z87.891 Personal history of nicotine dependence; Z79.4 Long term (current) use of insulin; Z88.0 Allergy status to penicillin; Z88.5 Allergy status to narcotic agent; Z88.6 Allergy status to analgesic agent; Z79.890 Hormone replacement therapy; Z79.899 Other long term (current) drug therapy
CPT/HCPCS: 36415; 80048; 80307; 81001; 82565; 82947; 85025; 85610; 87635; 93005; 94640; 99285

== ENCOUNTER 2020-12-31 11:14 | Emergency (ER) | payer OTHER, SELFPAY ==
--- NOTE | ~2020-12-31 | XR_ITS ---
EXAMINATION: XR CHEST CLINICAL INFORMATION: Shortness of breath. Difficulty breathing. Asthma. COMPARISON: Most recent CTA chest dated 10/29/2020 TECHNIQUE: 2 views of the chest were obtained. FINDINGS: No focal airspace consolidation. No pleural effusion or pneumothorax. Stable cardiomediastinal silhouette. Sternal wires are redemonstrated. No acute osseous abnormality. XR/XR chest 2V IMPRESSION: No acute cardiopulmonary findings.
[2020-12-31 12:29] VITALS: BP 130/91; PULSE 108; RESP 16; TEMP 36.1; O2SAT 90; BMI 53.2
[2020-12-31 13:02] LABS: COVID-19 Test Negative (Negative)
--- NOTE | 2020-12-31 14:50 | ED_ITS ---
HPI - Asthma General Chief Complaint: Asthma Stated Complaint: asthma - diff breathing Time Seen by Provider: 12/31/20 14:36 Source: patient Mode of arrival: ambulatory Limitations: no limitations History of Present Illness HPI Narrative: 45-year-old male with a history of PTSD, borderline personality, CHF, chronic hypoxic respiratory failure on 2 L nasal cannula, asthma, morbid obesity, diabetes, DVT/PE on Coumadin who presents to the ER with wheezing and shortness of breath that started today when she was out doing errands. She reports being with her aide who noted her to be short of breath and wheezy. She had used her prescribed inhaler this morning. She had also used her nebulizer last night for some wheezing and shortness of breath. She is coughing, but not bringing up any phlegm. She has no fever or chills. She has not been on steroids for asthma in a very long time. MD complaint: shortness of breath Onset (ago): day(s) (1) Severity: moderate and similar to prior Associated symptoms: dry cough Treatments Prior to Arrival: inhaled bronchodilator Related Data Current Asthma Therapy: inhaled bronchodilator and inhaled steroid Home Medications Medication Instructions Recorded Confirmed medroxyprogesterone 10 mg tablet 10 mg PO DAILY 12/26/19 11/10/20 (Provera) levothyroxine 75 mcg tablet 75 mcg PO DAILY 04/07/20 11/10/20 metformin 1,000 mg tablet 1,000 mg PO BID 04/07/20 11/10/20 blood sugar diagnostic #10 ea 05/06/20 07/22/20 Previous Rx's Medication Instructions Recorded insulin glargine U-300 conc 300 45 unit SUBCUT BEDTIME 30 Days #6 07/22/20 unit/mL (3 mL) subcutaneous pen ml (Toujeo Max U-300 SoloStar) insulin lispro 100 unit/mL See Rx Instructions SUBCUT TID 30 11/05/20 subcutaneous pen (Humalog #15 ml (U-100) Insulin) acetaminophen 325 mg tablet 650 mg PO Q6H PRN #30 tab 11/17/20 albuterol sulfate 2.5 mg INHALATION QID PRN #3 ml 11/17/20 atorvastatin 20 mg tablet 20 mg PO BEDTIME #30 tab 11/17/20 clonazepam 0.5 mg tablet 0.5 mg PO BID PRN #15 tab 11/17/20 furosemide 20 mg tablet 20 mg PO DAILY #30 tab 11/17/20 lisinopril 5 mg tablet 5 mg PO DAILY #30 tab 11/17/20 loratadine 10 mg tablet 10 mg PO DAILY #30 tab 11/17/20 metoprolol succinate 50 mg 50 mg PO DAILY #30 tab 11/17/20 tablet,extended release 24 hr omeprazole 20 mg capsule,delayed 20 mg PO DAILY@0630 #30 cap 11/17/20 release sertraline 50 mg tablet 150 mg PO DAILY #30 tab 11/17/20 trazodone 50 mg tablet 50 mg PO BEDTIME PRN #30 tab 11/17/20 warfarin 10 mg tablet (Jantoven) 10 mg PO DAILY@1700 #30 tab 11/17/20 dulaglutide 3 mg/0.5 mL 3 mg SUBCUT FR #2 ml 12/26/20 subcutaneous pen injector (Trulicity) azithromycin 250 mg tablet See Rx Instructions .ROUTE 12/31/20 (Zithromax Z-Mykel) .COMPLEX #6 tab prednisone 20 mg tablet 40 mg PO DAILY #10 tab 12/31/20 Allergies Allergy/AdvReac Type Severity Reaction Status Date / Time Penicillins [PENICILLINS] Allergy Intermediate HIVES Verified 09/26/20 21:54 egg [Egg] Allergy Mild SWELLING Verified 09/26/20 21:54 aspirin Allergy Unknown Unknown Verified 09/26/20 21:54 bee pollen [BEE STINGS] Allergy Unknown UNKNOWN Verified 09/26/20 21:54 lactose [LACTOSE] Allergy Unknown UNKNOWN Verified 09/26/20 21:54 latex [LATEX] Allergy Unknown HIVES Verified 09/26/20 21:54 oxycodone Allergy Unknown Unknown Verified 09/26/20 21:54 peanut [PEANUT] Allergy Unknown UNKNOWN Verified 09/26/20 21:54 penicillin V Allergy Unknown Unknown Verified 09/26/20 21:54 kiwi Allergy Anaphylaxis Verified 09/26/20 21:54 eggs,bees,latex,peanuts Allergy Unknown Unknown Uncoded 07/22/20 11:46 medical tape Allergy Unknown Unknown Uncoded 07/22/20 11:46 TAPE,PLASTIC Allergy Unknown RASH Uncoded 07/22/20 11:46 Review of Systems Review of Systems: Constitutional: No Fever, No Chills ENT/Mouth: No sore throat, No Rhinorrhea, No Swallowing Difficulty Eyes: No Eye Pain, No Swelling, No Redness Cardiovascular: No Chest Pain, No SOB, No Orthopnea, No Edema Respiratory: + Cough, No Sputum, + Wheezing, + dyspnea Gastrointestinal: No Nausea, No Vomiting, No Diarrhea, No abdominal Pain Genitourinary: No Dysuria, No Urinary Frequency, No Hematuria Musculoskeletal: No joint pain, No Myalgias Skin: No Skin Lesions, No rash Neuro: No Weakness, No Numbness, No Dizziness, No Headache Psych: No Anxiety/Panic, No Depression Heme/Lymph: No Bruising, No Lymphadenopathy Endocrine: No Polyuria, No Polydipsia [facility] Past Medical History Medical History Anxiety Asthma BMI 50.0-59.9, adult Cardiomyopathy CHF (congestive heart failure) Depression Diabetes mellitus, type 2 Diabetes type 2, uncontrolled DVT (deep vein thrombosis) in Essential hypertension Gallstones Hyperlipidemia LDL goal <70 Hypertension Hypothyroidism Irritable bowel Mood disorder ROGERIO (obstructive sleep apnea) Pancreatitis PTSD (post-traumatic stress disorder) Pulmonary embolism Surgical History History of dental surgery History of open heart surgery Hx of hernia repair Hx of removal of cyst Family History Family History Paternal Grandmother Diabetes Social History Social History Household Members: None Housing: Apartment Housing Other:: Has [employer] twice a day. Do you presently have visiting nurse or other home services: Yes Alcohol intake: former Patient Tobacco Use Status: Former Tobacco user Tobacco use type: Cigarette e-Cigarette/Vaping Use: Never Used Second Hand Smoke Exposure: Yes Advance Directives: Yes Advance Directives Information Provided: Yes Advance Directives on File: No service: No Sexual orientation: Lesbian/Good/Homosexual Physical Exam Vital Signs: Vital Signs: Last Vital Signs Temp 97.8 F 12/31/20 16:00 Pulse 112 H 12/31/20 16:00 Resp 16 12/31/20 16:00 BP 109/49 L 12/31/20 16:00 Pulse Ox 97 12/31/20 16:00 Body Mass Index 53.2 Appearance: Alert. Oriented X3. No acute distress. Eyes: Pupils equal, round and reactive to light. ENT: Pharynx normal. Neck: Normal inspection. Neck supple. CVS: Normal heart rate and rhythm. Pulses normal. Respiratory: Mild respiratory distress, RR 22. No accessory muscle use. Breath sounds coarse and diminished throughout, minimal wheezing, no basilar rhonchi. Abdomen: Obese, Soft and nontender. +BS x4 Skin: Skin warm and dry. Normal skin color. Normal skin turgor. No rashes. Extremities: Trace lower extremity edema. No calf tenderness, swelling or e rythema. Neuro: Oriented X 3. No motor deficit. No sensory deficit. Course Course Course Narrative: 45-year-old female with a history of asthma, chronic hypoxic respiratory failure on 2 L nasal cannula, PE on Coumadin, ROGERIO on CPAP who presents to the ER with wheezing and shortness of breath that started today. She was noted to be slightly tachycardic, tachypneic and hypoxic on arrival, SPO2 90% on room air. She was placed on her home 2 L and SpO2 improved to 97%. She is alert and conversant, speaking in full sentences. Will get chest x-ray, COVID swab, treat with steroids and nebulizer treatment and reassess. Doubt PE. She has been on Coumadin. She had a negative CTA in October. Dispo pending result in improvement. Reevaluation(s) Reevaluation #1: COVID is negative. Chest x-ray shows No focal findings. She is getting her nebulizer at this time we will reassess. Reevaluation #2: Patient is feeling better after her nebulizer treatment. Her glucose was 390. She was given subcu insulin. She has been adherent with her insulin at home. Not in DKA. Clinically she has improved and is stable for discharge home with treatment for acute asthma exacerbation. She will follow-up with her doctors. MDM - Asthma Lab Data Labs: Lab Results 12/31/20 12/31/20 Range/Units 12:32 16:13 POC Glucose 397 H* (60-115) mg/dL COVID-19 ([facility]) Negative (Negative) COVID-19 Clin Com See Note Critical Care Time Critical Care Time Critical Care Time: Yes Total Critical Care Time: 38 Attestation: I have personally provided critical care time exclusive of time spent on separately billable procedures. Time includes review of lab data, radiology results, discussion with consultants, and monitoring for potential decompensation. Intervention performed as documented. Discharge Plan Discharge Clinical Impression: Acute asthma exacerbation Patient Disposition: Home, Self-Care Instructions: Asthma (ED) Additional Instructions: You were negative for COVID-19. Your chest x-ray did not show any pneumonia. You are being treated for acute asthma exacerbation with oral steroids and antibiotics. Recommend using her nebulizer at home every 6 hours for the next 2-3 days, or until you are feeling better. Follow-up with your doctor this week. If you have worsening symptoms call 911 or come back to the ER. Prescriptions: New azithromycin [Zithromax Z-Mykel] 250 mg tablet See Rx Instructions .ROUTE .COMPLEX Qty: 6 RF: 0 prednisone 20 mg tablet 40 mg PO DAILY Qty: 10 RF: 0 No Action insulin lispro [Humalog KwikPen Insulin] 100 unit/mL insulin pen See Rx Instructions subcut TID 30 Days Qty: 15 RF: 3 Trulicity 3 mg/0.5 mL pen injector 3 mg subcut FR Qty: 2 RF: 3 medroxyprogesterone [Provera] 10 mg Tablet 10 mg PO DAILY RF: 0 levothyroxine 75 mcg tablet 75 mcg PO DAILY RF: 0 metformin 1,000 mg tablet 1,000 mg PO BID RF: 0 albuterol sulfate 2.5 mg /3 mL (0.083 %) Solution For Nebulization 2.5 mg inhalation QID PRN (Reason: Allergic Reaction) Qty: 3 RF: 0 loratadine 10 mg Tablet 10 mg PO DAILY Qty: 30 RF: 0 acetaminophen 325 mg Tablet 650 mg PO Q6H PRN (Reason: Headache/Pain Mild Scale (1-3)) Qty: 30 RF: 0 atorvastatin 20 mg Tablet 20 mg PO BEDTIME Qty: 30 RF: 0 trazodone 50 mg Tablet 50 mg PO BEDTIME PRN (Reason: Sleep) Qty: 30 RF: 0 metoprolol succinate 50 mg Tablet Extended Release 24 Hr 50 mg PO DAILY Qty: 30 RF: 0 warfarin [Jantoven] 10 mg Tablet 10 mg PO DAILY@1700 Qty: 30 RF: 0 clonazepam 0.5 mg Tablet 0.5 mg PO BID PRN (Reason: Anxiety/Restlessness) Qty: 15 RF: 0 omeprazole 20 mg Capsule,Delayed Release(Dr/Ec) 20 mg PO DAILY@0630 Qty: 30 RF: 0 lisinopril 5 mg Tablet 5 mg PO DAILY Qty: 30 RF: 0 furosemide 20 mg Tablet 20 mg PO DAILY Qty: 30 RF: 0 sertraline 50 mg Tablet 150 mg PO DAILY Qty: 30 RF: 0 (DME) blood sugar diagnostic Strip See Rx Instructions strip .ROUTE .MEDSUPPLY Qty: 10 RF: 0 Toujeo Max U-300 SoloStar 300 unit/mL (3 mL) insulin pen 45 unit subcut BEDTIME 30 Days Qty: 6 RF: 3 Referrals: Renee Saavedra MD [Primary Care Provider] - 1 week
[2020-12-31] MEDS: Albuterol Sulfate (0.083%) 2.5 MG/3 ML VIAL.NEB 10 MG INHALE (14:51)
[2020-12-31 14:52] VITALS: PULSE 93; O2SAT 98
[2020-12-31 16:00] VITALS: BP 109/49; PULSE 112; RESP 16; TEMP 36.6; O2SAT 97
[2020-12-31 16:21] LABS: Glucose, Whole Blood 397 mg/dL (60-115)
[2020-12-31] MEDS: predniSONE 20 MG TABLET 60 MG PO (17:15)
[2020-12-31] MEDS: Insulin Lispro 100 UNIT/ML 3 ML VIAL 10 UNIT SUBCUT (17:15)
[2020-12-31 17:44] VITALS: BP 109/66; PULSE 98; RESP 15; TEMP 36.9; O2SAT 97
== END 2020-12-31 18:35 | disposition home or self-care (01) ==
PROVIDERS: Emergency Provider Emergency Medicine; PCP Internal Medicine
DX: J45.901 Unspecified asthma with (acute) exacerbation (principal); J96.11 Chronic respiratory failure with hypoxia; I11.0 Hypertensive heart disease with heart failure; I50.9 Heart failure, unspecified; E11.9 Type 2 diabetes mellitus without complications; G47.33 Obstructive sleep apnea (adult) (pediatric); Z86.711 Personal history of pulmonary embolism; Z86.718 Personal history of other venous thrombosis and embolism; Z79.01 Long term (current) use of anticoagulants; Z79.4 Long term (current) use of insulin; Z79.899 Other long term (current) drug therapy; Z99.81 Dependence on supplemental oxygen; Z99.89 Dependence on other enabling machines and devices; Z20.822 Contact with and (suspected) exposure to COVID-19
CPT/HCPCS: 36415; 71046; 82947; 87635; 94640; 94644; 99283; 99291

== ENCOUNTER 2021-01-01 18:12 | Emergency (ER) | payer OTHER, SELFPAY ==
[2021-01-01 19:07] VITALS: BP 136/56; PULSE 94; RESP 18; TEMP 36.8; O2SAT 97
--- NOTE | 2021-01-01 19:16 | ED.GENADULT ---
HPI - General Adult General Stated complaint: sore throat Time Seen by Provider: 01/01/21 19:00 Source: patient Limitations: no limitations History of Present Illness HPI narrative: This is a 45-year-old female with a history of borderline personality, CHF, chronic hypoxic respiratory failure on 2 L nasal cannula, asthma, morbid obesity, diabetes, DVT/PE on Coumadin, who was seen here yesterday evaluated for cough and shortness of breath trade the patient had a negative chest x-ray, negative COVID test, was started on prednisone. Her blood sugar was around 400 yesterday. She was given insulin subcutaneous. Patient states that today she again had discomfort in her throat. She checked her blood sugar and it was high. She took her insulin and it was still high and she was advised to come to the emergency department. She denies any fever. Her cough has been productive of yellow phlegm times. She denies any pain or swelling in her extremities. Related Data Home Medications Medication Instructions Recorded Confirmed medroxyprogesterone 10 mg tablet 10 mg PO DAILY 12/26/19 11/10/20 (Provera) levothyroxine 75 mcg tablet 75 mcg PO DAILY 04/07/20 11/10/20 metformin 1,000 mg tablet 1,000 mg PO BID 04/07/20 11/10/20 blood sugar diagnostic #10 ea 05/06/20 07/22/20 Previous Rx's Medication Instructions Recorded insulin glargine U-300 conc 300 45 unit SUBCUT BEDTIME 30 Days #6 07/22/20 unit/mL (3 mL) subcutaneous pen ml (Toujeo Max U-300 SoloStar) insulin lispro 100 unit/mL See Rx Instructions SUBCUT TID 30 11/05/20 subcutaneous pen (Humalog Kwik Days #15 ml (U-100) Insulin) acetaminophen 325 mg tablet 650 mg PO Q6H PRN #30 tab 11/17/20 albuterol sulfate 2.5 mg INHALATION QID PRN #3 ml 11/17/20 atorvastatin 20 mg tablet 20 mg PO BEDTIME #30 tab 11/17/20 clonazepam 0.5 mg tablet 0.5 mg PO BID PRN #15 tab 11/17/20 furosemide 20 mg tablet 20 mg PO DAILY #30 tab 11/17/20 lisinopril 5 mg tablet 5 mg PO DAILY #30 tab 11/17/20 loratadine 10 mg tablet 10 mg PO DAILY #30 tab 11/17/20 metoprolol succinate 50 mg 50 mg PO DAILY #30 tab 11/17/20 tablet,extended release 24 hr omeprazole 20 mg capsule,delayed 20 mg PO DAILY@0630 #30 cap 11/17/20 release sertraline 50 mg tablet 150 mg PO DAILY #30 tab 11/17/20 trazodone 50 mg tablet 50 mg PO BEDTIME PRN #30 tab 11/17/20 warfarin 10 mg tablet (Jantoven) 10 mg PO DAILY@1700 #30 tab 11/17/20 dulaglutide 3 mg/0.5 mL 3 mg SUBCUT FR #2 ml 12/26/20 subcutaneous pen injector (TrOrangeSlyce) azithromycin 250 mg tablet See Rx Instructions .ROUTE 12/31/20 (Zithromax Z-Mykel) .COMPLEX #6 tab prednisone 20 mg tablet 40 mg PO DAILY #10 tab 12/31/20 Allergies Allergy/AdvReac Type Severity Reaction Status Date / Time Penicillins [PENICILLINS] Allergy Intermediate HIVES Verified 09/26/20 21:54 egg [Egg] Allergy Mild SWELLING Verified 09/26/20 21:54 aspirin Allergy Unknown Unknown Verified 09/26/20 21:54 bee pollen [BEE STINGS] Allergy Unknown UNKNOWN Verified 09/26/20 21:54 lactose [LACTOSE] Allergy Unknown UNKNOWN Verified 09/26/20 21:54 latex [LATEX] Allergy Unknown HIVES Verified 09/26/20 21:54 oxycodone Allergy Unknown Unknown Verified 09/26/20 21:54 peanut [PEANUT] Allergy Unknown UNKNOWN Verified 09/26/20 21:54 penicillin V Allergy Unknown Unknown Verified 09/26/20 21:54 kiwi Allergy Anaphylaxis Verified 09/26/20 21:54 eggs,bees,latex,peanuts Allergy Unknown Unknown Uncoded 07/22/20 11:46 medical tape Allergy Unknown Unknown Uncoded 07/22/20 11:46 TAPE,PLASTIC Allergy Unknown RASH Uncoded 07/22/20 11:46 Review of Systems Constitutional: Constitutional: Reports as per HPI Eyes: Eyes: Reports no additional eye complaints ENT: Reports sore throat (Discomfort upper chest and throat) Cardiovascular: Cardiovascular: Reports as per HPI Respiratory: Respiratory: Reports cough and Denies pain with cough Gastrointestinal: Gastrointestinal: Denies abdominal pain, Denies nausea and Denies vomiting Musculoskeletal: Musculoskeletal: Reports as per HPI Neurologic: Denies Sensory deficit (Neuro) [facility] Past Medical History Medical History Anxiety Asthma BMI 50.0-59.9, adult Cardiomyopathy CHF (congestive heart failure) Depression Diabetes mellitus, type 2 Diabetes type 2, uncontrolled DVT (deep vein thrombosis) in Essential hypertension Gallstones Hyperlipidemia LDL goal <70 Hypertension Hypothyroidism Irritable bowel Mood disorder ROGERIO (obstructive sleep apnea) Pancreatitis PTSD (post-traumatic stress disorder) Pulmonary embolism Surgical History History of dental surgery History of open heart surgery Hx of hernia repair Hx of removal of cyst Family History Family History Paternal Grandmother Diabetes Social History Social History Household Members: None Housing: Apartment Housing Other:: Has [employer] twice a day. Do you presently have visiting nurse or other home services: Yes Alcohol intake: former Patient Tobacco Use Status: Former Tobacco user Tobacco use type: Cigarette e-Cigarette/Vaping Use: Never Used Second Hand Smoke Exposure: Yes Advance Directives: No Advance Directives Information Provided: No service: No Sexual orientation: Lesbian/Good/Homosexual Physical Exam Vital Signs: Vital Signs: Last Vital Signs Temp 98.3 F 01/01/21 19:07 Pulse 94 01/01/21 19:07 Resp 18 01/01/21 19:07 BP 136/56 L 01/01/21 19:07 Pulse Ox 97 01/01/21 19:07 Const: Other: Patient moderately obese. Somewhat anxious affect General: cooperative, no acute distress and alert Orientation/consciousness: patient oriented x3 HENMT: Head: Yes normal to inspection General nose exam: Normal external nose present Mouth: oropharynx normal and moist mucous membranes Eyes: General: appearance normal, both eyes and all related structures Eyelids: Yes eyelids normal Conjunctivae: conjunctivae normal Pupils: Equal, round and reactive pupils present Neck: Neck: Yes normal visual inspection and Yes supple Chest: Chest palpation & inspection: normal inspection of the chest Resp: Effort & Inspection: normal respiratory effort Auscultation: clear to auscultation bilaterally Cardio: Rate: regular rate Rhythm: regular rhythm Heart sounds: S1 normal heart sound present, S2 normal heart sound present, no gallops, no murmurs and no rubs GI: Palpation (GI): Soft to palpation, nontender and Other GI palpation findings present (Non-distended) Auscultation: normal bowel sounds Skin: General skin exam: no rashes or lesions noted Neuro: General: patient oriented x3, no focal motor deficits and CN's II-XI intact bilaterally Cranial nerves: Yes Equal, round and reactive pupils present Cognition (Neuro): normal cognition Motor exam (neuro): 5/5 motor strength present throughout Sensory Exam: No Sensory deficit (Neuro) Extrem: General: Yes normal to inspection and Yes no pedal edema Psych: Appearance: grossly normal Affect: normal affect Medical Decision Making MDM Narrative Medical decision making narrative: Patient frequent visitor, has history of psychiatric illness, was here yesterday and had negative COVID test, negative chest x-ray. Patient was put on prednisone. Patient's blood sugar is around her baseline level of the upper 300s. No clinical evidence of ketoacidosis. Patient is safe for outpatient follow-up Lab Data Labs: Lab Results 01/01/21 Range/Units 21:07 POC Glucose 399 H* (60-115) mg/dL Discharge Plan Discharge Clinical Impression: Chronic hyperglycemia, Asthma Patient Disposition: Home, Self-Care Instructions: Asthma (ED), Diabetic Hyperglycemia (ED) Additional Instructions: Continue current medications. Follow up with primary care physician. Prescriptions: No Action insulin lispro [Humalog KwikPen Insulin] 100 unit/mL insulin pen See Rx Instructions subcut TID 30 Days Qty: 15 RF: 3 Trulicity 3 mg/0.5 mL pen injector 3 mg subcut FR Qty: 2 RF: 3 medroxyprogesterone [Provera] 10 mg Tablet 10 mg PO DAILY RF: 0 levothyroxine 75 mcg tablet 75 mcg PO DAILY RF: 0 metformin 1,000 mg tablet 1,000 mg PO BID RF: 0 albuterol sulfate 2.5 mg /3 mL (0.083 %) Solution For Nebulization 2.5 mg inhalation QID PRN (Reason: Allergic Reaction) Qty: 3 RF: 0 loratadine 10 mg Tablet 10 mg PO DAILY Qty: 30 RF: 0 acetaminophen 325 mg Tablet 650 mg PO Q6H PRN (Reason: Headache/Pain Mild Scale (1-3)) Qty: 30 RF: 0 atorvastatin 20 mg Tablet 20 mg PO BEDTIME Qty: 30 RF: 0 trazodone 50 mg Tablet 50 mg PO BEDTIME PRN (Reason: Sleep) Qty: 30 RF: 0 metoprolol succinate 50 mg Tablet Extended Release 24 Hr 50 mg PO DAILY Qty: 30 RF: 0 warfarin [Jantoven] 10 mg Tablet 10 mg PO DAILY@1700 Qty: 30 RF: 0 clonazepam 0.5 mg Tablet 0.5 mg PO BID PRN (Reason: Anxiety/Restlessness) Qty: 15 RF: 0 omeprazole 20 mg Capsule,Delayed Release(Dr/Ec) 20 mg PO DAILY@0630 Qty: 30 RF: 0 lisinopril 5 mg Tablet 5 mg PO DAILY Qty: 30 RF: 0 furosemide 20 mg Tablet 20 mg PO DAILY Qty: 30 RF: 0 sertraline 50 mg Tablet 150 mg PO DAILY Qty: 30 RF: 0 azithromycin [Zithromax Z-Mykel] 250 mg tablet See Rx Instructions .ROUTE .COMPLEX Qty: 6 RF: 0 prednisone 20 mg tablet 40 mg PO DAILY Qty: 10 RF: 0 (DME) blood sugar diagnostic Strip See Rx Instructions strip .ROUTE .MEDSUPPLY Qty: 10 RF: 0 Toujeo Max U-300 SoloStar 300 unit/mL (3 mL) insulin pen 45 unit subcut BEDTIME 30 Days Qty: 6 RF: 3
[2021-01-01] MEDS: LORazepam 1 MG TABLET PO (19:24)
--- NOTE | 2021-01-01 19:37 | PC.NURSE ---
medicated per Mar.
[2021-01-01 21:10] LABS: Glucose, Whole Blood 399 mg/dL (60-115)
== END 2021-01-01 23:27 | disposition home or self-care (01) ==
PROVIDERS: Emergency Provider Emergency Medicine; PCP Internal Medicine
DX: E11.65 Type 2 diabetes mellitus with hyperglycemia (principal); J45.909 Unspecified asthma, uncomplicated; J96.11 Chronic respiratory failure with hypoxia; I11.0 Hypertensive heart disease with heart failure; I50.9 Heart failure, unspecified; Z86.711 Personal history of pulmonary embolism; Z86.718 Personal history of other venous thrombosis and embolism; Z79.01 Long term (current) use of anticoagulants; Z79.899 Other long term (current) drug therapy; Z99.81 Dependence on supplemental oxygen
CPT/HCPCS: 82947; 99281; 99283

== ENCOUNTER 2021-01-07 23:13 | Emergency (ER) | payer OTHER, SELFPAY ==
[2021-01-08 00:01] VITALS: BP 116/50; PULSE 104; RESP 18; TEMP 35.9; O2SAT 93; BMI 53.2
--- NOTE | 2021-01-08 00:30 | ED.GENADULT ---
HPI - General Adult General Chief complaint: General Medical Stated complaint: high bs Time Seen by Provider: 01/08/21 00:30 Source: patient Mode of arrival: ambulatory Limitations: no limitations History of Present Illness HPI narrative: sugars are running high and she has a headache. patient recently finished abx Onset (ago): day(s) Severity: moderate Associated symptoms: weakness Related Data Home Medications Medication Instructions Recorded Confirmed medroxyprogesterone 10 mg tablet 10 mg PO DAILY 12/26/19 11/10/20 (Provera) levothyroxine 75 mcg tablet 75 mcg PO DAILY 04/07/20 11/10/20 metformin 1,000 mg tablet 1,000 mg PO BID 04/07/20 11/10/20 blood sugar diagnostic #10 ea 05/06/20 07/22/20 Previous Rx's Medication Instructions Recorded insulin glargine U-300 conc 300 45 unit SUBCUT BEDTIME 30 Days #6 07/22/20 unit/mL (3 mL) subcutaneous pen ml (Toujeo Max U-300 SoloStar) insulin lispro 100 unit/mL See Rx Instructions SUBCUT TID 30 11/05/20 subcutaneous pen (Humalog KwikPen Days #15 ml (U-100) Insulin) acetaminophen 325 mg tablet 650 mg PO Q6H PRN #30 tab 11/17/20 albuterol sulfate 2.5 mg INHALATION QID PRN #3 ml 11/17/20 atorvastatin 20 mg tablet 20 mg PO BEDTIME #30 tab 11/17/20 clonazepam 0.5 mg tablet 0.5 mg PO BID PRN #15 tab 11/17/20 furosemide 20 mg tablet 20 mg PO DAILY #30 tab 11/17/20 lisinopril 5 mg tablet 5 mg PO DAILY #30 tab 11/17/20 loratadine 10 mg tablet 10 mg PO DAILY #30 tab 11/17/20 metoprolol succinate 50 mg 50 mg PO DAILY #30 tab 11/17/20 tablet,extended release 24 hr omeprazole 20 mg capsule,delayed 20 mg PO DAILY@0630 #30 cap 11/17/20 release sertraline 50 mg tablet 150 mg PO DAILY #30 tab 11/17/20 trazodone 50 mg tablet 50 mg PO BEDTIME PRN #30 tab 11/17/20 warfarin 10 mg tablet (Jantoven) 10 mg PO DAILY@1700 #30 tab 11/17/20 dulaglutide 3 mg/0.5 mL 3 mg SUBCUT FR #2 ml 12/26/20 subcutaneous pen injector (Trulicity) azithromycin 250 mg tablet See Rx Instructions .ROUTE 12/31/20 (Zithromax Z-Mykel) .COMPLEX #6 tab prednisone 20 mg tablet 40 mg PO DAILY #10 tab 12/31/20 Allergies Allergy/AdvReac Type Severity Reaction Status Date / Time Penicillins [PENICILLINS] Allergy Intermediate HIVES Verified 09/26/20 21:54 egg [Egg] Allergy Mild SWELLING Verified 09/26/20 21:54 aspirin Allergy Unknown Unknown Verified 09/26/20 21:54 bee pollen [BEE STINGS] Allergy Unknown UNKNOWN Verified 09/26/20 21:54 lactose [LACTOSE] Allergy Unknown UNKNOWN Verified 09/26/20 21:54 latex [LATEX] Allergy Unknown HIVES Verified 09/26/20 21:54 oxycodone Allergy Unknown Unknown Verified 09/26/20 21:54 peanut [PEANUT] Allergy Unknown UNKNOWN Verified 09/26/20 21:54 penicillin V Allergy Unknown Unknown Verified 09/26/20 21:54 kiwi Allergy Anaphylaxis Verified 09/26/20 21:54 eggs,bees,latex,peanuts Allergy Unknown Unknown Uncoded 07/22/20 11:46 medical tape Allergy Unknown Unknown Uncoded 07/22/20 11:46 TAPE,PLASTIC Allergy Unknown RASH Uncoded 07/22/20 11:46 Review of Systems Constitutional: Constitutional: Reports no additional constitutional complaints Eyes: Eyes: Reports no additional eye complaints ENT: Denies dizziness Cardiovascular: Cardiovascular: Reports no additional cardiovascular complaints Respiratory: Respiratory: Reports as per HPI Gastrointestinal: Gastrointestinal: Reports no additional gastrointestinal complaints Genitourinary: Genitourinary: Reports no additional female genitourinary complaints Musculoskeletal: Musculoskeletal: Reports no additional musculoskeletal complaints Integumentary/Breasts: Skin/Breast: Denies rash Neurologic: Reports system reviewed and no additional complaints, except as documented, Denies dizziness and Denies Sensory deficit (Neuro) Psychiatric: Psychiatric: Denies anxiety PMFSH Past Medical History Medical History Anxiety Asthma BMI 50.0-59.9, adult Cardiomyopathy CHF (congestive heart failure) Depression Diabetes mellitus, type 2 Diabetes type 2, uncontrolled DVT (deep vein thrombosis) in Essential hypertension Gallstones Hyperlipidemia LDL goal <70 Hypertension Hypothyroidism Irritable bowel Mood disorder ROGERIO (obstructive sleep apnea) Pancreatitis PTSD (post-traumatic stress disorder) Pulmonary embolism Surgical History History of dental surgery History of open heart surgery Hx of hernia repair Hx of removal of cyst Family History Family History Paternal Grandmother Diabetes Social History Social History Household Members: None Housing: Apartment Housing Other:: 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 Do you presently have visiting nurse or other home services: Yes Alcohol intake: former Patient Tobacco Use Status: Former Tobacco user Tobacco use type: Cigarette e-Cigarette/Vaping Use: Never Used Second Hand Smoke Exposure: Yes Advance Directives: No Advance Directives Information Provided: Yes Patient : No service: No Sexual orientation: Lesbian/Good/Homosexual Physical Exam Vital Signs: Vital Signs: Last Vital Signs Temp 96.7 F L 01/08/21 00:01 Pulse 104 H 01/08/21 00:01 Resp 18 01/08/21 00:01 BP 116/50 L 01/08/21 00:01 Pulse Ox 93 01/08/21 00:01 Oxygen Flow Rate 3 01/08/21 00:01 Body Mass Index 53.2 Const: Other: looking older than stated age no acute distress Nutritional Appearance: obese Orientation/consciousness: oriented to person and patient oriented x3 Limitations: no limitations HENMT: Head: Yes normal to inspection Ears: external ears normal General nose exam: Normal external nose present Mouth: Normal oral and palatal mucosa present and oropharynx normal Throat: Yes posterior oropharynx normal Eyes: General: appearance normal, both eyes and all related structures Neck: Other: supple Neck: Yes normal visual inspection Chest: Chest palpation & inspection: normal inspection of the chest Resp: Auscultation: clear to auscultation bilaterally Cardio: Jugular venous distension: no JVD Rate: regular rate Rhythm: regular rhythm Heart sounds: S1 normal heart sound present and S2 normal heart sound present GI: Inspection: Yes normal to inspection Palpation (GI): Soft to palpation, nontender and No hepatosplenomegaly present Auscultation: normal bowel sounds : General: Yes no CVA tenderness Back/Spine/Pelvis: Back: no CVA tenderness Skin: General skin exam: no rashes or lesions noted Neuro: General: oriented to person and patient oriented x3 Cranial nerves: Yes CN's II-XII intact bilaterally Motor exam (neuro): 5/5 motor strength present throughout Sensory Exam: No Sensory deficit (Neuro) Extrem: General: Yes normal to inspection Psych: Appearance: grossly normal Medical Decision Making Lab Data Result diagrams: 01/08/21 00:56 01/08/21 00:56 Labs: Lab Results 01/08/21 01/08/21 01/08/21 Range/Units 00:37 00:56 00:56 WBC 12.0 H (4.8-10.8) X10*3/uL RBC 4.89 (4.20-5.50) X10*6/uL Hgb 12.3 (12.0-16.0) g/dl Hct 39.8 (37-47) % MCV 81.4 (80-98) fL MCH 25.2 L (27.0-33.0) pg MCHC 30.9 L (31.0-35.0) g/dl RDW 19.1 H (11.0-16.0) % Plt Count 315 (160-400) X10*3/uL MPV 10.6 (9.4-12.3) fL Immature Gran % (Auto) 0.4 (0.0-0.4) % Neut % (Auto) 67.4 (45-73) % Lymph % (Auto) 24.4 (20-40) % [place] % (Auto) 5.9 (2-11) % Eos % (Auto) 1.5 (0-4) % Baso % (Auto) 0.4 (0-2) % Lymph # (Auto) 2.9 (1.2-4.9) X10*3/uL [place] # (Auto) 0.7 (0.1-1.2) X10*3/uL Eos # (Auto) 0.2 (0.0-0.4) X10*3/uL Baso # (Auto) 0.1 (0.0-0.2) X10*3/uL Abs Immat Gran (auto) 0.05 H (0.00-0.03) X10*3/uL Absolute Neuts (auto) 8.1 (2.0-8.3) X10*3/uL Absolute Nucleated RBC 0.000 (0.0-0.012) X10*3/uL Nucleated RBC % (auto) 0.0 (0.0-0.2) /100WBC Sodium 138 (135-145) mmol/L Potassium 4.2 (3.3-5.1) mmol/L Chloride 100 (96-108) mmol/L Carbon Dioxide 30 H (22-29) mmol/L Anion Gap 12 (12-20) BUN 16 (9-16) mg/dL Creatinine 1.17 (0.5-1.4) mg/dL Estim Creat Clear Calc 93.4 Estimated GFR 50 POC Glucose 388 H* (60-115) mg/dL Random Glucose 435 H* D (60-115) mg/dL Calcium 8.8 D (8.4-10.2) mg/dL Urine Color Urine Appearance Urine pH (5.0-8.0) Ur Specific [place] (1.005-1.025) Urine Protein (NEG-TRACE) MG/DL Urine Glucose (UA) (NEG) MG/DL Urine Ketones (NEG) MG/DL Urine Blood (NEG) Urine Nitrite (NEG) Ur Leukocyte Esterase (NEG) 01/08/21 Range/Units 02:25 WBC (4.8-10.8) X10*3/uL RBC (4.20-5.50) X10*6/uL Hgb (12.0-16.0) g/dl Hct (37-47) % MCV (80-98) fL MCH (27.0-33.0) pg MCHC (31.0-35.0) g/dl RDW (11.0-16.0) % Plt Count (160-400) X10*3/uL MPV (9.4-12.3) fL Immature Gran % (Auto) (0.0-0.4) % Neut % (Auto) (45-73) % Lymph % (Auto) (20-40) % [place] % (Auto) (2-11) % Eos % (Auto) (0-4) % Baso % (Auto) (0-2) % Lymph # (Auto) (1.2-4.9) X10*3/uL [place] # (Auto) (0.1-1.2) X10*3/uL Eos # (Auto) (0.0-0.4) X10*3/uL Baso # (Auto) (0.0-0.2) X10*3/uL Abs Immat Gran (auto) (0.00-0.03) X10*3/uL Absolute Neuts (auto) (2.0-8.3) X10*3/uL Absolute Nucleated RBC (0.0-0.012) X10*3/uL Nucleated RBC % (auto) (0.0-0.2) /100WBC Sodium (135-145) mmol/L Potassium (3.3-5.1) mmol/L Chloride (96-108) mmol/L Carbon Dioxide (22-29) mmol/L Anion Gap (12-20) BUN (9-16) mg/dL Creatinine (0.5-1.4) mg/dL Estim Creat Clear Calc Estimated GFR POC Glucose (60-115) mg/dL Random Glucose (60-115) mg/dL Calcium (8.4-10.2) mg/dL Urine Color YELLOW Urine Appearance CLEAR Urine pH 6.0 (5.0-8.0) Ur Specific [place] <= 1.005 (1.005-1.025) Urine Protein NEG (NEG-TRACE) MG/DL Urine Glucose (UA) >=1000 H (NEG) MG/DL Urine Ketones NEG (NEG) MG/DL Urine Blood NEG (NEG) Urine Nitrite NEG (NEG) Ur Leukocyte Esterase NEG (NEG) Discharge Plan Discharge Clinical Impression: Hyperglycemia Diabetes mellitus, type 2 Qualifiers: Diabetes mellitus terminologist insulin use: with terminologist use Diabetes mellitus complication status: without complication Qualified Code(s): E11.9 - Type 2 diabetes mellitus without complications Patient Disposition: Home, Self-Care Instructions: Diabetic Hyperglycemia (ED) Prescriptions: No Action insulin lispro [Humalog KwikPen Insulin] 100 unit/mL insulin pen See Rx Instructions subcut TID 30 Days Qty: 15 RF: 3 Trulicity 3 mg/0.5 mL pen injector 3 mg subcut FR Qty: 2 RF: 3 medroxyprogesterone [Provera] 10 mg Tablet 10 mg PO DAILY RF: 0 levothyroxine 75 mcg tablet 75 mcg PO DAILY RF: 0 metformin 1,000 mg tablet 1,000 mg PO BID RF: 0 albuterol sulfate 2.5 mg /3 mL (0.083 %) Solution For Nebulization 2.5 mg inhalation QID PRN (Reason: Allergic Reaction) Qty: 3 RF: 0 loratadine 10 mg Tablet 10 mg PO DAILY Qty: 30 RF: 0 acetaminophen 325 mg Tablet 650 mg PO Q6H PRN (Reason: Headache/Pain Mild Scale (1-3)) Qty: 30 RF: 0 atorvastatin 20 mg Tablet 20 mg PO BEDTIME Qty: 30 RF: 0 trazodone 50 mg Tablet 50 mg PO BEDTIME PRN (Reason: Sleep) Qty: 30 RF: 0 metoprolol succinate 50 mg Tablet Extended Release 24 Hr 50 mg PO DAILY Qty: 30 RF: 0 warfarin [Jantoven] 10 mg Tablet 10 mg PO DAILY@1700 Qty: 30 RF: 0 clonazepam 0.5 mg Tablet 0.5 mg PO BID PRN (Reason: Anxiety/Restlessness) Qty: 15 RF: 0 omeprazole 20 mg Capsule,Delayed Release(Dr/Ec) 20 mg PO DAILY@0630 Qty: 30 RF: 0 lisinopril 5 mg Tablet 5 mg PO DAILY Qty: 30 RF: 0 furosemide 20 mg Tablet 20 mg PO DAILY Qty: 30 RF: 0 sertraline 50 mg Tablet 150 mg PO DAILY Qty: 30 RF: 0 azithromycin [Zithromax Z-Mykel] 250 mg tablet See Rx Instructions .ROUTE .COMPLEX Qty: 6 RF: 0 prednisone 20 mg tablet 40 mg PO DAILY Qty: 10 RF: 0 (DME) blood sugar diagnostic Strip See Rx Instructions strip .ROUTE .MEDSUPPLY Qty: 10 RF: 0 Toujeo Max U-300 SoloStar 300 unit/mL (3 mL) insulin pen 45 unit subcut BEDTIME 30 Days Qty: 6 RF: 3 Referrals: Renee Saavedra MD [Primary Care Provider] - 5 days
[2021-01-08 00:41] LABS: Glucose, Whole Blood 388 mg/dL (60-115)
[2021-01-08] MEDS: Insulin Glargine,Hum.rec.anlog 100 UNIT/ML 10 ML VIAL 8 UNIT SUBCUT (00:57)
[2021-01-08] MEDS: 0.9 % Sodium Chloride 1,000 ML 999 ML IVCONT ×4 (00:59→03:46)
[2021-01-08 01:04] LABS: MANUAL DIFF FLAG NO
[2021-01-08 01:06] LABS: Basophils Absolute Auto 0.1 X10*3/uL (0.0-0.2); Basophils Percent Auto 0.4 % (0-2); Eosinophils Absolute Auto 0.2 X10*3/uL (0.0-0.4); Eosinophils Percent Auto 1.5 % (0-4); Hematocrit 39.8 % (37-47); Hemoglobin 12.3 g/dl (12.0-16.0); Imm Gran Abs Auto 0.05 X10*3/uL (0.00-0.03); Imm Gran Pct Auto 0.4 % (0.0-0.4); Lymphocytes Absolute Auto 2.9 X10*3/uL (1.2-4.9); Lymphocytes Percent Auto 24.4 % (20-40); Mean Corpuscular HGB Conc 30.9 g/dl (31.0-35.0); Mean Corpuscular Hemoglobin 25.2 pg (27.0-33.0); Mean Corpuscular Volume 81.4 fL (80-98); Mean Platelet Volume 10.6 fL (9.4-12.3); Monocytes Absolute Auto 0.7 X10*3/uL (0.1-1.2); Monocytes Percent Auto 5.9 % (2-11); Neutrophils Absolute Auto 8.1 X10*3/uL (2.0-8.3); Neutrophils Percent Auto 67.4 % (45-73); Platelet Count 315 X10*3/uL (160-400); Red Blood Count 4.89 X10*6/uL (4.20-5.50); Red Cell Distribution Width 19.1 % (11.0-16.0)
[2021-01-08 01:24] LABS: Anion Gap 12 (12-20); Blood Urea Nitrogen 16 mg/dL (9-16); Calcium 8.8 mg/dL (8.4-10.2); Carbon Dioxide 30 mmol/L (22-29); Chloride 100 mmol/L (96-108); Creatinine Clr Calc Pharmacy 93.4; Estimated Glomerular Filt Rate 50; Glucose Random 435 mg/dL (60-115); Potassium 4.2 mmol/L (3.3-5.1); Sodium 138 mmol/L (135-145)
[2021-01-08 02:37] LABS: Appearance Urine CLEAR; Color Urine YELLOW; Glucose Urine UA >=1000 MG/DL (NEG); Leukocyte Esterase Urine NEG (NEG); Nitrite Urine NEG (NEG); Specific Gravity - Urine <= 1.005 (1.005-1.025); UACC Culture Trigger NO; Urine Blood NEG (NEG); Urine Ketones NEG (NEG); Urine Protein NEG (NEG-TRACE)
[2021-01-08 02:44] LABS: RBC Urine 0 /HPF (0); Squamous Epithelial Cell Urine 2+ /LPF; WBC Urine 0 /HPF (0-4)
[2021-01-08 03:00] LABS: Glucose, Whole Blood 311 mg/dL (60-115)
[2021-01-08 04:17] VITALS: BP 126/77; PULSE 99; RESP 18; O2SAT 98
[2021-01-08 04:18] LABS: Glucose, Whole Blood 306 mg/dL (60-115)
== END 2021-01-08 05:53 | disposition home or self-care (01) ==
PROVIDERS: Emergency Provider Emergency Medicine; PCP Internal Medicine
DX: E11.65 Type 2 diabetes mellitus with hyperglycemia (principal); I11.0 Hypertensive heart disease with heart failure; I50.9 Heart failure, unspecified; Z86.718 Personal history of other venous thrombosis and embolism; Z79.01 Long term (current) use of anticoagulants; Z79.4 Long term (current) use of insulin; Z79.899 Other long term (current) drug therapy
CPT/HCPCS: 36415; 80048; 81001; 82947; 85025; 96360; 96361; 99284

== ENCOUNTER 2021-01-18 18:55 | Emergency (ER) | payer OTHER, SELFPAY ==
--- NOTE | ~2021-01-18 | XR_ITS ---
EXAMINATION: XR CHEST CLINICAL INFORMATION: Shortness of breath COMPARISON: 01/01/2020 TECHNIQUE: Frontal view of the chest was obtained. FINDINGS: Heart is enlarged. Patient status post median sternotomy. No gross evidence of CHF. There are bibasilar ill-defined patchy density is seen. Findings are slightly worse than can be seen at the time of the prior study. XR/XR chest 1V IMPRESSION: Commonly reported imaging features of Covid 19 or viral pneumonia are present with ill-defined bibasilar patchy density. Other processes such as influenza pneumonia or organizing pneumonia, as can be seen with drug toxicity and connective tissue disease, can cause a similar imaging pattern.
[2021-01-18 19:03] VITALS: BP 120/49; BP 170/100; PULSE 95; PULSE 98; RESP 20; O2SAT 100; BMI 60.1
--- NOTE | 2021-01-18 19:45 | ED_ITS ---
HPI - General Adult General Chief complaint: General Medical Stated complaint: PEDAL EDEMA Time Seen by Provider: 01/18/21 19:45 Source: patient Mode of arrival: EMS Limitations: no limitations History of Present Illness HPI narrative: 45 years old female with history of hypertension hyperlipidemia diabetes hypothyroidism DVT, PE status post cardiothoracic removal of PE 2013 on Coumadin, asthma PTSD obesity on home oxygen 3 LPM 24 hours on furosemide 20 mg daily. Came here for increased swelling of the legs for last few days no increase in shortness of breath did take the dose of extra furosemide today. Patient does have good amount of urination denies any chest pain or palpitation Related Data Home Medications Medication Instructions Recorded Confirmed medroxyprogesterone 10 mg tablet 10 mg PO DAILY 12/26/19 11/10/20 (Provera) levothyroxine 75 mcg tablet 75 mcg PO DAILY 04/07/20 11/10/20 blood sugar diagnostic #10 ea 05/06/20 07/22/20 Previous Rx's Medication Instructions Recorded insulin glargine U-300 conc 300 45 unit SUBCUT BEDTIME 30 Days #6 07/22/20 unit/mL (3 mL) subcutaneous pen ml (Toujeo Max U-300 SoloStar) insulin lispro 100 unit/mL See Rx Instructions SUBCUT TID 30 11/05/20 subcutaneous pen (Humalog #15 ml (U-100) Insulin) acetaminophen 325 mg tablet 650 mg PO Q6H PRN #30 tab 11/17/20 albuterol sulfate 2.5 mg INHALATION QID PRN #3 ml 11/17/20 atorvastatin 20 mg tablet 20 mg PO BEDTIME #30 tab 11/17/20 clonazepam 0.5 mg tablet 0.5 mg PO BID PRN #15 tab 11/17/20 furosemide 20 mg tablet 20 mg PO DAILY #30 tab 11/17/20 lisinopril 5 mg tablet 5 mg PO DAILY #30 tab 11/17/20 loratadine 10 mg tablet 10 mg PO DAILY #30 tab 11/17/20 metoprolol succinate 50 mg 50 mg PO DAILY #30 tab 11/17/20 tablet,extended release 24 hr omeprazole 20 mg capsule,delayed 20 mg PO DAILY@0630 #30 cap 11/17/20 release sertraline 50 mg tablet 150 mg PO DAILY #30 tab 08/23/21 trazodone 50 mg tablet 50 mg PO BEDTIME PRN #30 tab 11/17/20 warfarin 10 mg tablet (Jantoven) 10 mg PO DAILY@1700 #30 tab 11/17/20 dulaglutide 3 mg/0.5 mL 3 mg SUBCUT FR #2 ml 12/26/20 subcutaneous pen injector (Trulicity) azithromycin 250 mg tablet See Rx Instructions .ROUTE 12/31/20 (Zithromax Z-Mykel) .COMPLEX #6 tab prednisone 20 mg tablet 40 mg PO DAILY #10 tab 12/31/20 metformin 1,000 mg tablet 1,000 mg PO BID #180 tab 01/16/21 potassium chloride 10 mEq 10 meq PO DAILY #20 tab 01/18/21 tablet,extended release (Klor-Con) Allergies Allergy/AdvReac Type Severity Reaction Status Date / Time Penicillins [PENICILLINS] Allergy Intermediate HIVES Verified 09/26/20 21:54 egg [Egg] Allergy Mild SWELLING Verified 09/26/20 21:54 aspirin Allergy Unknown Unknown Verified 09/26/20 21:54 bee pollen [BEE STINGS] Allergy Unknown UNKNOWN Verified 09/26/20 21:54 lactose [LACTOSE] Allergy Unknown UNKNOWN Verified 09/26/20 21:54 latex [LATEX] Allergy Unknown HIVES Verified 09/26/20 21:54 oxycodone Allergy Unknown Unknown Verified 09/26/20 21:54 peanut [PEANUT] Allergy Unknown UNKNOWN Verified 09/26/20 21:54 penicillin V Allergy Unknown Unknown Verified 09/26/20 21:54 kiwi Allergy Anaphylaxis Verified 09/26/20 21:54 eggs,bees,latex,peanuts Allergy Unknown Unknown Uncoded 07/22/20 11:46 medical tape Allergy Unknown Unknown Uncoded 07/22/20 11:46 TAPE,PLASTIC Allergy Unknown RASH Uncoded 07/22/20 11:46 Review of Systems Review of Systems: Yes all other systems are reviewed and are negative PMFSH Past Medical History Medical History Anxiety Asthma BMI 50.0-59.9, adult Cardiomyopathy CHF (congestive heart failure) Depression Diabetes mellitus, type 2 Diabetes type 2, uncontrolled DVT (deep vein thrombosis) in Essential hypertension Gallstones Hyperlipidemia LDL goal <70 Hypertension Hypothyroidism Irritable bowel Mood disorder ROGERIO (obstructive sleep apnea) Pancreatitis PTSD (post-traumatic stress disorder) Pulmonary embolism Surgical History History of dental surgery History of open heart surgery Hx of hernia repair Hx of removal of cyst Family History Family History Paternal Grandmother Diabetes Social History Social History Household Members: None Housing: Apartment Housing Other:: 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 Do you presently have visiting nurse or other home services: Yes Alcohol intake: former Patient Tobacco Use Status: Former Tobacco user Tobacco use type: Cigarette e-Cigarette/Vaping Use: Never Used Second Hand Smoke Exposure: Yes Use of substances other than those prescribed or required for medical reasons: No Advance Directives: No Advance Directives Information Provided: Yes service: No Sexual orientation: Lesbian/Good/Homosexual Physical Exam Vital Signs: Vital Signs: Last Vital Signs Pulse 95 01/18/21 19:03 Resp 20 01/18/21 19:03 BP 120/49 L 01/18/21 19:03 Pulse Ox 100 01/18/21 19:03 Oxygen Flow Rate 3 01/18/21 19:03 Body Mass Index 60.1 Appearance: Alert. Oriented X3. No acute distress. Eyes: No pallor or icterus ENT: Pharynx normal. Oral Mucosa moist Neck: Normal inspection. Neck supple. CVS: Normal heart rate and rhythm. Pulses normal. Respiratory: No respiratory distress. Equal air entry bilateral, no wheezing/rales/rhonchi Abdomen: Soft and nontender. Bowel sounds are present, no mass palpable, no CVA tenderness Skin: Skin warm and dry. Normal skin color. Normal skin turgor. Extremities: 3+ lower extremity edema. No calf tenderness Neuro: Oriented X 3. Medical Decision Making MDM Narrative Medical decision making narrative: Patient with significant leg edema BNP is normal, chest x-ray normal will increase the dose of Lasix to 40 mg daily advised to follow-up with PCP Lab Data Lab results reviewed: Yes I reviewed the patient's lab results. Result diagrams: 01/18/21 20:09 01/18/21 20:09 Labs: Lab Results 10/24/21 10/24/21 10/24/21 Range/Units 20:09 20:09 20:09 WBC 8.9 (4.8-10.8) X10*3/uL RBC 4.68 (4.20-5.50) X10*6/uL Hgb 11.8 L (12.0-16.0) g/dl Hct 38.6 (37-47) % MCV 82.5 (80-98) fL MCH 25.2 L (27.0-33.0) pg MCHC 30.6 L (31.0-35.0) g/dl RDW 19.1 H (11.0-16.0) % Plt Count 290 (160-400) X10*3/uL MPV 10.5 (9.4-12.3) fL Immature Gran % (Auto) 0.2 (0.0-0.4) % Neut % (Auto) 68.0 (45-73) % Lymph % (Auto) 24.2 (20-40) % [place] % (Auto) 5.4 (2-11) % Eos % (Auto) 1.6 (0-4) % Baso % (Auto) 0.6 (0-2) % Lymph # (Auto) 2.1 (1.2-4.9) X10*3/uL [place] # (Auto) 0.5 (0.1-1.2) X10*3/uL Eos # (Auto) 0.1 (0.0-0.4) X10*3/uL Baso # (Auto) 0.1 (0.0-0.2) X10*3/uL Abs Immat Gran (auto) 0.02 (0.00-0.03) X10*3/uL Absolute Neuts (auto) 6.0 (2.0-8.3) X10*3/uL Absolute Nucleated RBC 0.000 (0.0-0.012) X10*3/uL Nucleated RBC % (auto) 0.0 (0.0-0.2) /100WBC PT (9.9-13.0) SEC INR (0.9-1.1) Sodium 140 (135-145) mmol/L Potassium 4.0 (3.3-5.1) mmol/L Chloride 103 (96-108) mmol/L Carbon Dioxide 29 (22-29) mmol/L Anion Gap 12 (12-20) BUN 7 L D (9-16) mg/dL Creatinine 0.90 (0.5-1.4) mg/dL Estim Creat Clear Calc 131.3 Estimated GFR > 60 Random Glucose 285 H (60-115) mg/dL Calcium 8.6 (8.4-10.2) mg/dL Total Bilirubin 0.5 (0.0-1.0) mg/dL Direct Bilirubin 0.2 (0.0-0.5) mg/dL AST 12 D (5-31) U/L ALT 23 (0-31) U/L Alkaline Phosphatase 74 (39-117) U/L B-Natriuretic Peptide 94 (<100) pg/mL Total Protein 6.8 (6.5-8.0) g/dL Albumin 3.8 (3.5-5.0) g/dL 01/18/21 Range/Units 20:34 WBC (4.8-10.8) X10*3/uL RBC (4.20-5.50) X10*6/uL Hgb (12.0-16.0) g/dl Hct (37-47) % MCV (80-98) fL MCH (27.0-33.0) pg MCHC (31.0-35.0) g/dl RDW (11.0-16.0) % Plt Count (160-400) X10*3/uL MPV (9.4-12.3) fL Immature Gran % (Auto) (0.0-0.4) % Neut % (Auto) (45-73) % Lymph % (Auto) (20-40) % [place] % (Auto) (2-11) % Eos % (Auto) (0-4) % Baso % (Auto) (0-2) % Lymph # (Auto) (1.2-4.9) X10*3/uL [place] # (Auto) (0.1-1.2) X10*3/uL Eos # (Auto) (0.0-0.4) X10*3/uL Baso # (Auto) (0.0-0.2) X10*3/uL Abs Immat Gran (auto) (0.00-0.03) X10*3/uL Absolute Neuts (auto) (2.0-8.3) X10*3/uL Absolute Nucleated RBC (0.0-0.012) X10*3/uL Nucleated RBC % (auto) (0.0-0.2) /100WBC PT 30.5 H (9.9-13.0) SEC INR 2.6 H (0.9-1.1) Sodium (135-145) mmol/L Potassium (3.3-5.1) mmol/L Chloride (96-108) mmol/L Carbon Dioxide (22-29) mmol/L Anion Gap (12-20) BUN (9-16) mg/dL Creatinine (0.5-1.4) mg/dL Estim Creat Clear Calc Estimated GFR Random Glucose (60-115) mg/dL Calcium (8.4-10.2) mg/dL Total Bilirubin (0.0-1.0) mg/dL Direct Bilirubin (0.0-0.5) mg/dL AST (5-31) U/L ALT (0-31) U/L Alkaline Phosphatase (39-117) U/L B-Natriuretic Peptide (<100) pg/mL Total Protein (6.5-8.0) g/dL Albumin (3.5-5.0) g/dL Discharge Plan Discharge Clinical Impression: Leg edema Patient Disposition: Home, Self-Care Instructions: Leg Edema (ED) Additional Instructions: Keep your legs elevated Increased dose of furosemide to 40 mg daily in the a.m. till swelling gets better Take potassium tablet daily while taking high-dose of furosemide Prescriptions: New potassium chloride [Klor-Con 10] 10 mEq tablet extended release 10 meq PO DAILY Qty: 20 RF: 0 No Action insulin lispro [Humalog KwikPen Insulin] 100 unit/mL insulin pen See Rx Instructions subcut TID 30 Days Qty: 15 RF: 3 Trulicity 3 mg/0.5 mL pen injector 3 mg subcut FR Qty: 2 RF: 3 metformin 1,000 mg tablet 1,000 mg PO BID Qty: 180 RF: 1 medroxyprogesterone [Provera] 10 mg Tablet 10 mg PO DAILY RF: 0 levothyroxine 75 mcg tablet 75 mcg PO DAILY RF: 0 albuterol sulfate 2.5 mg /3 mL (0.083 %) Solution For Nebulization 2.5 mg inhalation QID PRN (Reason: Allergic Reaction) Qty: 3 RF: 0 loratadine 10 mg Tablet 10 mg PO DAILY Qty: 30 RF: 0 acetaminophen 325 mg Tablet 650 mg PO Q6H PRN (Reason: Headache/Pain Mild Scale (1-3)) Qty: 30 RF: 0 atorvastatin 20 mg Tablet 20 mg PO BEDTIME Qty: 30 RF: 0 trazodone 50 mg Tablet 50 mg PO BEDTIME PRN (Reason: Sleep) Qty: 30 RF: 0 metoprolol succinate 50 mg Tablet Extended Release 24 Hr 50 mg PO DAILY Qty: 30 RF: 0 warfarin [Jantoven] 10 mg Tablet 10 mg PO DAILY@1700 Qty: 30 RF: 0 clonazepam 0.5 mg Tablet 0.5 mg PO BID PRN (Reason: Anxiety/Restlessness) Qty: 15 RF: 0 omeprazole 20 mg Capsule,Delayed Release(Dr/Ec) 20 mg PO DAILY@0630 Qty: 30 RF: 0 lisinopril 5 mg Tablet 5 mg PO DAILY Qty: 30 RF: 0 furosemide 20 mg Tablet 20 mg PO DAILY Qty: 30 RF: 0 sertraline 50 mg Tablet 150 mg PO DAILY Qty: 30 RF: 0 azithromycin [Zithromax Z-Mykel] 250 mg tablet See Rx Instructions .ROUTE .COMPLEX Qty: 6 RF: 0 prednisone 20 mg tablet 40 mg PO DAILY Qty: 10 RF: 0 (DME) blood sugar diagnostic Strip See Rx Instructions strip .ROUTE .MEDSUPPLY Qty: 10 RF: 0 Toujeo Max U-300 SoloStar 300 unit/mL (3 mL) insulin pen 45 unit subcut BEDTIME 30 Days Qty: 6 RF: 3
[2021-01-18 20:14] LABS: MANUAL DIFF FLAG NO
[2021-01-18 20:15] LABS: Basophils Absolute Auto 0.1 X10*3/uL (0.0-0.2); Basophils Percent Auto 0.6 % (0-2); Eosinophils Absolute Auto 0.1 X10*3/uL (0.0-0.4); Eosinophils Percent Auto 1.6 % (0-4); Hematocrit 38.6 % (37-47); Hemoglobin 11.8 g/dl (12.0-16.0); Imm Gran Abs Auto 0.02 X10*3/uL (0.00-0.03); Imm Gran Pct Auto 0.2 % (0.0-0.4); Lymphocytes Absolute Auto 2.1 X10*3/uL (1.2-4.9); Lymphocytes Percent Auto 24.2 % (20-40); Mean Corpuscular HGB Conc 30.6 g/dl (31.0-35.0); Mean Corpuscular Hemoglobin 25.2 pg (27.0-33.0); Mean Corpuscular Volume 82.5 fL (80-98); Mean Platelet Volume 10.5 fL (9.4-12.3); Monocytes Absolute Auto 0.5 X10*3/uL (0.1-1.2); Monocytes Percent Auto 5.4 % (2-11); Platelet Count 290 X10*3/uL (160-400); Red Blood Count 4.68 X10*6/uL (4.20-5.50); Red Cell Distribution Width 19.1 % (11.0-16.0); White Blood Count 8.9 X10*3/uL (4.8-10.8)
[2021-01-18 20:34] LABS: Alanine Aminotransferase 23 U/L (0-31); Albumin Level 3.8 g/dL (3.5-5.0); Alkaline Phosphatase 74 U/L (39-117); Anion Gap 12 (12-20); Aspartate Amino Transferase 12 U/L (5-31); Bilirubin Direct 0.2 mg/dL (0.0-0.5); Bilirubin Total 0.5 mg/dL (0.0-1.0); Blood Urea Nitrogen 7 mg/dL (9-16); Calcium 8.6 mg/dL (8.4-10.2); Carbon Dioxide 29 mmol/L (22-29); Chloride 103 mmol/L (96-108); Creatinine Clr Calc Pharmacy 131.3; Estimated Glomerular Filt Rate > 60; Glucose Random 285 mg/dL (60-115); Sodium 140 mmol/L (135-145); Total Protein 6.8 g/dL (6.5-8.0)
[2021-01-18 20:35] LABS: B Type Natriuretic Peptide 94 pg/mL (<100)
[2021-01-18 20:43] LABS: INTERNATIONAL NORM RATIO 2.6 (0.9-1.1); Prothrombin Time 30.5 SEC (9.9-13.0)
[2021-01-18 21:28] VITALS: BP 120/66; PULSE 92; O2SAT 97
== END 2021-01-18 22:54 | disposition home or self-care (01) ==
PROVIDERS: Emergency Provider Internal Medicine; PCP Internal Medicine
DX: R60.0 Localized edema (principal); R06.02 Shortness of breath; F17.210 Nicotine dependence, cigarettes, uncomplicated; Z71.6 Tobacco abuse counseling; Z79.899 Other long term (current) drug therapy; Z79.4 Long term (current) use of insulin
CPT/HCPCS: 36415; 71045; 80048; 80076; 83880; 85025; 85610; 99283; 99284

== ENCOUNTER 2021-03-01 14:32 | Emergency (ER) | payer OTHER, SELFPAY ==
[2021-03-01 14:36] VITALS: BP 140/89; PULSE 80; O2SAT 94
--- NOTE | 2021-03-01 15:18 | PC.NURSE ---
PT 02 AT 89 ON RA IN TRIAGE. HELPED PT TO WHEELCHAIR WITH O2 TANK AND PLACED ON 2L NC PER SURGICAL NURSE.
[2021-03-01 16:37] LABS: COVID-19 Test Negative (Negative); IDNOW Serial# 9DD0AD1C
== END 2021-03-01 17:00 | disposition left against medical advice (07) ==
LOC: HO.ED 19:36
PROVIDERS: Emergency Provider Emergency Medicine
DX: R19.7 Diarrhea, unspecified (principal); Z20.822 Contact with and (suspected) exposure to COVID-19
CPT/HCPCS: 36415; 87635; 99283

== ENCOUNTER → 2021-03-12 13:23 | Outpatient (BNVA) | payer OTHER, SELFPAY | PROVIDERS: Visit Provider Nurse Practitioner Gerontology | DX: E11.65 Type 2 diabetes mellitus with hyperglycemia (principal); E78.5 Hyperlipidemia, unspecified; E66.01 Morbid (severe) obesity due to excess calories; I10 Essential (primary) hypertension; Z68.43 Body mass index [BMI] 50.0-59.9, adult | CPT/HCPCS: 82947; 83036; 99212 ==

== ENCOUNTER 2021-03-20 09:32 | Outpatient (REF) | payer OTHER, SELFPAY ==
[2021-03-20 10:43] LABS: Alanine Aminotransferase 20 U/L (0-31); Albumin Level 3.8 g/dL (3.5-5.0); Alkaline Phosphatase 75 U/L (39-117); Anion Gap 11 (12-20); Aspartate Amino Transferase 14 U/L (5-31); Bilirubin Total 0.6 mg/dL (0.0-1.0); Blood Urea Nitrogen 6 mg/dL (9-16); Calcium 9.5 mg/dL (8.4-10.2); Carbon Dioxide 26 mmol/L (22-29); Chloride 105 mmol/L (96-108); Cholesterol 182 mg/dL; Estimated Glomerular Filt Rate > 60; Glucose Fasting 295 mg/dL (60-99); HDL Cholesterol 37 mg/dL; LDL Cholesterol Calculated 114 mg/dl; Potassium 4.4 mmol/L (3.3-5.1); Sodium 138 mmol/L (135-145); Total Protein 7.1 g/dL (6.5-8.0); Triglycerides 159 mg/dL
[2021-03-20 10:55] LABS: Creatinine Urine 128.69 mg/dL
[2021-03-20 11:04] LABS: Free T4 (Free Thyroxine) 0.91 ng/dL (0.71-1.85); Thyroid Stimulating Hormone 3.51 uIU/mL (0.32-4.0)
[2021-03-22 06:16] LABS: LDL Cholesterol Direct 122 mg/dL (<100)
== END 2021-03-20 09:33 | disposition home or self-care (01) ==
LOC: HO.LAB 09:32
PROVIDERS: Visit Provider Nurse Practitioner Gerontology
DX: E11.65 Type 2 diabetes mellitus with hyperglycemia (principal)
CPT/HCPCS: 36415; 80053; 80061; 82043; 83721; 84439; 84443

== ENCOUNTER 2021-03-24 16:29 | Emergency (ER) | payer OTHER, SELFPAY ==
--- NOTE | 2021-03-24 16:44 | ED_ITS ---
HPI - Psych General Chief Complaint: Psychiatric Symptoms Stated Complaint: CRISIS,SI W/PLAN Time Seen by Provider: 03/24/21 16:44 Source: patient Mode of arrival: EMS Limitations: no limitations History of Present Illness HPI Narrative: 46-year-old female presents with suicidal ideation with a plan. She has voices in her head telling her to break glass to cut herself and bleed to . Patient tells me a bunch of things have happened recently that have made her suicidal. A friend of hers overdose today. None 3 days ago it was the 1 year anniversary of a cousin overdose. Last week it was the anniversary of her mother's birthday, mother is . Patient has been suicidal before, has a history of attempts. Was hospitalized here before 1 year ago. Reports 2 inpatient psychiatric hospitalizations. Patient denies HI, but states she feels numb and angry. States that if someone approached her in the wrong way, she could give her a day. States that now she is hearing voices ?somewhat?. No visual hallucinations. No recent med changes. She has been taking her meds. She has a psychiatrist. She sees a therapist. No self-harm. No drug or alcohol use. MD complaint: suicidal ideation, feels depressed, anxiety and hallucinations Onset (ago): week(s) (1) Duration: constant History of same: Yes Relieving factors: none Exacerbating factors: other Context: significant life stressor Associated psychiatric symptoms: depression and suicidal ideation Associated symptoms: denies other symptoms Treatments prior to arrival: none If self harm: admits thoughts of self harm and has plan Related Data Home Medications Medication Instructions Recorded Confirmed medroxyprogesterone 10 mg tablet 10 mg PO DAILY 12/26/19 11/10/20 (Provera) levothyroxine 75 mcg tablet 75 mcg PO DAILY 04/07/20 03/12/21 insulin glargine U-300 conc 300 46 unit SUBCUT BEDTIME ml 03/12/21 03/12/21 unit/mL (3 mL) subcutaneous pen (Toujeo Max U-300 SoloStar) dicyclomine 10 mg capsule 1 cap PO Q6H 03/24/21 sertraline 100 mg tablet 150 mg PO 03/24/21 Previous Rx's Medication Instructions Recorded acetaminophen 325 mg tablet 650 mg PO Q6H PRN #30 tab 11/17/20 albuterol sulfate 2.5 mg (3 mL) INHALATION QID PRN 11/17/20 #3 ml atorvastatin 20 mg tablet 20 mg PO BEDTIME #30 tab 11/17/20 clonazepam 0.5 mg tablet 0.5 mg PO BID PRN #15 tab 11/17/20 furosemide 20 mg tablet 20 mg PO DAILY #30 tab 11/17/20 lisinopril 5 mg tablet 5 mg PO DAILY #30 tab 11/17/20 loratadine 10 mg tablet 10 mg PO DAILY #30 tab 11/17/20 metoprolol succinate 50 mg 50 mg PO DAILY #30 tab 11/17/20 tablet,extended release 24 hr omeprazole 20 mg capsule,delayed 20 mg PO DAILY@0630 #30 cap 11/17/20 release sertraline 50 mg tablet 150 mg PO DAILY #30 tab 11/17/20 trazodone 50 mg tablet 50 mg PO BEDTIME PRN #30 tab 11/17/20 warfarin 10 mg tablet (Jantoven) 10 mg PO DAILY@1700 #30 tab 11/17/20 metformin 1,000 mg tablet 1,000 mg PO BID #180 tab 01/16/21 potassium chloride 10 mEq 10 meq PO DAILY #20 tab 01/18/21 tablet,extended release (Klor-Con) dulaglutide 4.5 mg/0.5 mL 4.5 mg (0.5 mL) SUBCUT QWEEK #2 ml 03/12/21 subcutaneous pen injector (Trulicity) glucose 4 gram chewable tablet 12 g PO Q15M PRN #60 tab 03/12/21 (Dex4 Glucose) insulin lispro 100 unit/mL See Rx Instructions SUBCUT TID 30 03/12/21 subcutaneous pen (Humalog KwikPen Days #15 ml (U-100) Insulin) Allergies Allergy/AdvReac Type Severity Reaction Status Date / Time Penicillins [PENICILLINS] Allergy Intermediate HIVES Verified 03/12/21 13:46 egg [Egg] Allergy Mild SWELLING Verified 03/12/21 13:46 aspirin Allergy Unknown Unknown Verified 03/12/21 13:46 bee pollen [BEE STINGS] Allergy Unknown UNKNOWN Verified 03/12/21 13:46 lactose [LACTOSE] Allergy Unknown UNKNOWN Verified 03/12/21 13:46 latex [LATEX] Allergy Unknown HIVES Verified 03/12/21 13:46 oxycodone Allergy Unknown Unknown Verified 03/12/21 13:46 peanut [PEANUT] Allergy Unknown UNKNOWN Verified 03/12/21 13:46 penicillin V Allergy Unknown Unknown Verified 03/12/21 13:46 kiwi Allergy Anaphylaxis Verified 03/12/21 13:46 eggs,bees,latex,peanuts Allergy Unknown Unknown Uncoded 03/12/21 13:46 medical tape Allergy Unknown Unknown Uncoded 03/12/21 13:46 TAPE,PLASTIC Allergy Unknown RASH Uncoded 03/12/21 13:46 Review of Systems Constitutional: Constitutional: Denies body ache(s), Denies chills, Denies fatigue, Denies fever(s), Denies headache(s), Denies malaise and Denies weakness Eyes: Eyes: Denies diplopia ENT: Denies vertigo, Denies dizziness, Denies otalgia, Denies headache(s), Denies mouth pain, Denies post nasal drip, Denies sinus pain, Denies sinus pressure, Denies sore throat and Denies throat swelling Cardiovascular: Cardiovascular: Denies chest pain, Denies syncope, Denies leg edema, Denies lightheadedness, Denies Loss of Consciousness, Denies palpitations and Denies dyspnea Respiratory: Respiratory: Denies chest congestion, Denies cough and Denies dyspnea Gastrointestinal: Gastrointestinal: Denies abdominal pain, Denies hematochezia, Denies constipation, Denies diarrhea and Denies vomiting Musculoskeletal: Musculoskeletal: Reports no additional musculoskeletal complaints Neurologic: Denies confusion, Denies vertigo, Denies dizziness, Denies syncope, Denies headache(s) and Denies weakness Psychiatric: Psychiatric: Reports anxiety, Denies confusion, Reports depression, Reports auditory hallucinations, Reports hopelessness, Reports irritability, Reports anhedonia, Denies visual hallucinations, Denies hallucinations and Reports suicidal ideation Endocrine: Endocrine: Denies fatigue and Denies palpitations Allergic/Immunologic: Allergic/Immunologic: Denies throat swelling PMFSH Past Medical History Medical History Anxiety Asthma BMI 50.0-59.9, adult Cardiomyopathy CHF (congestive heart failure) Depression Diabetes mellitus, type 2 Diabetes type 2, uncontrolled DVT (deep vein thrombosis) in Essential hypertension Gallstones Hyperlipidemia LDL goal <70 Hypertension Hypothyroidism Irritable bowel Mood disorder Obesity due to excess calories ROGERIO (obstructive sleep apnea) Pancreatitis PTSD (post-traumatic stress disorder) Pulmonary embolism Surgical History History of dental surgery History of open heart surgery Hx of hernia repair Hx of removal of cyst Family History Family History Paternal Grandmother Diabetes Social History Social History Household Members: None Housing: Apartment Housing Other:: Has VETERINARIAN ASSISTANT twice a day. Do you presently have visiting nurse or other home services: Yes Alcohol intake: former Patient Tobacco Use Status: Former Tobacco user Tobacco use type: Cigarette e-Cigarette/Vaping Use: Never Used Second Hand Smoke Exposure: Yes Advance Directives: No Advance Directives Information Provided: Yes Patient : No service: No Sexual orientation: Lesbian/Good/Homosexual Physical Exam Vital Signs: Vital Signs: Last Vital Signs Temp 99.0 F 03/24/21 17:46 Pulse 90 03/24/21 17:46 Resp 16 03/24/21 17:46 BP 130/70 03/24/21 17:46 Pulse Ox 92 03/24/21 17:46 BMI result Body Mass Index 33.8 Const: General: no acute distress, alert and awake; No confusion Nutritional Appearance: well nourished and obese morbidly obese Orientation/consciousness: patient oriented x3 and No confusion Limitations: no limitations HENMT: Head: Yes normal to inspection, Yes normocephalic and Yes atraumatic Ears: hearing grossly normal bilaterally, external ears normal, TM's normal bilaterally and EAC's normal General nose exam: Normal external nose present Face and sinus: Yes normal facial exam and Yes sinuses nontender Mouth: Normal oral and palatal mucosa present Throat: Yes posterior oropharynx normal Eyes: Conjunctivae: conjunctivae normal Pupils: Equal, round and reactive pupils present EOM: EOMs intact bilaterally Neck: Neck: Yes full ROM, Yes no lymphadenopathy and Yes supple Resp: Effort & Inspection: normal respiratory effort and able to speak in complete sentences Auscultation: clear to auscultation bilaterally, no crackles, no rales, no rhonchi and no wheezes Cardio: Rate: regular rate Rhythm: regular rhythm Heart sounds: S1 normal heart sound present and S2 normal heart sound present GI: Inspection: Yes normal to inspection Palpation (GI): Soft to palpation, nontender, no guarding and not rigid Percussion: Yes normal to percussion Auscultation: normal bowel sounds Skin: General skin exam: no rashes or lesions noted Neuro: General: patient oriented x3 and No confusion Cranial nerves: Yes Equal, round and reactive pupils present Extrem: General: Yes normal to inspection and Yes full ROM Psych: Appearance: grossly normal Affect: normal affect Attitude: cooperative Thought process: Normal thought process present Course Course Course Narrative: 45-year-old female who is suicidal with plan. On exam, patient has stable vitals is in no apparent distress. Put in psych labs, U tox Patient COVID negative, she is not , urine tox screen positive only for marijuana . Will sign the patient out to Dr Floyd, pending medical clearance and crisis evaluation [facility] - Psych Lab Data Labs: Lab Results 03/24/21 03/24/21 03/24/21 Range/Units 18:01 18:01 18:01 Urine Test NEGATIVE (NEGATIVE) Urine Opiates Screen Not Detected (Not Detect) Urine Fentanyl Screen Not Detected (Not Detect) Ur Barbiturates Screen Not Detected (Not Detect) Ur Phencyclidine Scrn Not Detected (Not Detect) Ur Amphetamines Screen Not Detected (Not Detect) U Benzodiazepines Scrn Not Detected (Not Detect) Urine Cocaine Screen Not Detected (Not Detect) U Marijuana (THC) Screen POSITIVE H (Not Detect) COVID-19 ([facility]) Negative (Negative) COVID-19 Clin Com See Note Discharge Plan Discharge Clinical Impression: Suicidal ideation Patient Disposition: Still a Patient Prescriptions: No Action metformin 1,000 mg tablet 1,000 mg PO BID Qty: 180 RF: 1 medroxyprogesterone [Provera] 10 mg Tablet 10 mg PO DAILY RF: 0 levothyroxine 75 mcg tablet 75 mcg PO DAILY RF: 0 albuterol sulfate 2.5 mg /3 mL (0.083 %) Solution For Nebulization 2.5 mg inhalation QID PRN (Reason: Allergic Reaction) Qty: 3 RF: 0 loratadine 10 mg Tablet 10 mg PO DAILY Qty: 30 RF: 0 acetaminophen 325 mg Tablet 650 mg PO Q6H PRN (Reason: Headache/Pain Mild Scale (1-3)) Qty: 30 RF: 0 atorvastatin 20 mg Tablet 20 mg PO BEDTIME Qty: 30 RF: 0 trazodone 50 mg Tablet 50 mg PO BEDTIME PRN (Reason: Sleep) Qty: 30 RF: 0 metoprolol succinate 50 mg Tablet Extended Release 24 Hr 50 mg PO DAILY Qty: 30 RF: 0 warfarin [Jantoven] 10 mg Tablet 10 mg PO DAILY@1700 Qty: 30 RF: 0 clonazepam 0.5 mg Tablet 0.5 mg PO BID PRN (Reason: Anxiety/Restlessness) Qty: 15 RF: 0 omeprazole 20 mg Capsule,Delayed Release(Dr/Ec) 20 mg PO DAILY@0630 Qty: 30 RF: 0 lisinopril 5 mg Tablet 5 mg PO DAILY Qty: 30 RF: 0 furosemide 20 mg Tablet 20 mg PO DAILY Qty: 30 RF: 0 sertraline 50 mg Tablet 150 mg PO DAILY Qty: 30 RF: 0 potassium chloride [Klor-Con 10] 10 mEq tablet extended release 10 meq PO DAILY Qty: 20 RF: 0 sertraline 100 mg tablet 150 mg PO RF: 0 dicyclomine 10 mg capsule 1 cap PO Q6H RF: 0 Toujeo Max U-300 SoloStar 300 unit/mL (3 mL) insulin pen 46 unit subcut BEDTIME RF: 0 insulin lispro [Humalog KwikPen Insulin] 100 unit/mL insulin pen See Rx Instructions subcut TID 30 Days Qty: 15 RF: 4 Trulicity 4.5 mg/0.5 mL pen injector 4.5 mg subcut QWEEK Qty: 2 RF: 6 glucose [Dex4 Glucose] 4 gram tablet,chewable 12 g PO Q15M PRN (Reason: hypoglycemia) Qty: 60 RF: 4
[2021-03-24 17:46] VITALS: BP 130/70; PULSE 100; PULSE 90; RESP 16; TEMP 37.2; O2SAT 92; BMI 33.8
[2021-03-24] MEDS: LORazepam 1 MG TABLET 2 MG PO (18:09)
[2021-03-24 18:10] LABS: UPreg QC Valid YES; Urine Pregnancy NEGATIVE (NEGATIVE)
[2021-03-24 18:26] LABS: COVID-19 Test Negative (Negative); IDNOW Serial# 9DD0AD1C
[2021-03-24 18:27] LABS: Amphetamine Screen Urine Not Detected (Not Detect); Barbiturates, Urine Not Detected (Not Detect); Benzodiazepines Screen Urine Not Detected (Not Detect); Cannabinoid Screen Urine POSITIVE (Not Detect); Cocaine Screen Urine Not Detected (Not Detect); Fentanyl, urine Not Detected (Not Detect); Opiate Screen Urine Not Detected (Not Detect); Phencyclidine Screen Urine Not Detected (Not Detect)
--- NOTE | 2021-03-24 22:24 | PC.NURSE ---
Patient in bed appears sleeping at this time, no distress observed/reported, BHN assessed the patient, disposition is current provider, patient will be discharged in the morning, patient and provider both are agreement with plan, will continue to monitor.
[2021-03-25 00:11] LABS: MANUAL DIFF FLAG NO
[2021-03-25 00:12] LABS: Basophils Absolute Auto 0.1 X10*3/uL (0.0-0.2); Basophils Percent Auto 0.5 % (0-2); Eosinophils Absolute Auto 0.2 X10*3/uL (0.0-0.4); Eosinophils Percent Auto 1.6 % (0-4); Hematocrit 39.9 % (37.0-47.0); Hemoglobin 12.3 g/dl (12.0-16.0); Imm Gran Abs Auto 0.03 X10*3/uL (0.00-0.03); Imm Gran Pct Auto 0.3 % (0.0-0.4); Lymphocytes Absolute Auto 3.1 X10*3/uL (1.2-4.9); Lymphocytes Percent Auto 31.4 % (20-40); Mean Corpuscular HGB Conc 30.8 g/dl (31.0-35.0); Mean Corpuscular Hemoglobin 24.9 pg (27.0-33.0); Mean Corpuscular Volume 80.8 fL (80.0-98.0); Mean Platelet Volume 10.6 fL (9.4-12.3); Monocytes Absolute Auto 0.6 X10*3/uL (0.1-1.2); Monocytes Percent Auto 6.2 % (2-11); Neutrophils Absolute Auto 5.9 x10*3/uL (2.0-8.3); Platelet Count 309 X10*3/uL (160-400); Red Blood Count 4.94 X10*6/uL (4.20-5.50); Red Cell Distribution Width 18.6 % (11.0-16.0); White Blood Count 9.8 X10*3/uL (4.8-10.8)
[2021-03-25 00:23] VITALS: BP 128/83; PULSE 95; TEMP 37.3; O2SAT 91
[2021-03-25 00:24] LABS: Glucose, Whole Blood 213 mg/dL (60-115)
[2021-03-25 00:39] LABS: Acetaminophen LAB < 1 mcg/mL (<30); Alanine Aminotransferase 15 U/L (0-31); Albumin Level 3.6 g/dL (3.5-5.0); Alkaline Phosphatase 64 U/L (39-117); Anion Gap 14 (12-20); Aspartate Amino Transferase 13 U/L (5-31); Bilirubin Total 0.4 mg/dL (0.0-1.0); Blood Urea Nitrogen 8 mg/dL (9-16); Calcium 8.9 mg/dL (8.4-10.2); Carbon Dioxide 26 mmol/L (22-29); Chloride 103 mmol/L (96-108); Creatinine Clr Calc Pharmacy 115.7; Estimated Glomerular Filt Rate > 60; Glucose Random 214 mg/dL (60-115); Potassium 3.7 mmol/L (3.3-5.1); Salicylate < 5.0 mg/dL (15-30); Sodium 139 mmol/L (135-145); Total Protein 6.5 g/dL (6.5-8.0)
[2021-03-25 00:46] LABS: Ethanol < 10 mg/dL
--- NOTE | 2021-03-25 05:09 | PC.NURSE ---
Patient slept through the night, no distress observed/reported, med rec completed, behavior appropriate and cooperative, N screened the patient, patient was engaged, disposition is current provider, will continue to monitor.
[2021-03-25 06:11] LABS: Glucose, Whole Blood 182 mg/dL (60-115)
[2021-03-25] MEDS: Omeprazole 20 MG CAPSULE.DR PO (06:23)
[2021-03-25] MEDS: Dicyclomine HCl 10 MG CAPSULE PO ×2 (06:23→12:28)
[2021-03-25] MEDS: Levothyroxine Sodium 75 MCG TABLET PO (06:26)
--- NOTE | 2021-03-25 07:13 | PC.NURSE ---
patient appears to remain at rest at present respirations are even and unlabored patient appears in no distress
[2021-03-25 07:47] VITALS: BP 128/83; PULSE 95
[2021-03-25] MEDS: Metoprolol Succinate ER 50 MG TAB.ER.24H PO (07:47)
[2021-03-25] MEDS: Sertraline HCL 50 MG TABLET 150 MG PO (07:47)
[2021-03-25] MEDS: metFORMIN HCl 1,000 MG TABLET 1000 MG PO (07:47)
[2021-03-25 07:48] VITALS: BP 128/83; PULSE 95
[2021-03-25] MEDS: lisinopriL 5 MG TABLET PO (07:48)
[2021-03-25] MEDS: Furosemide 20 MG TABLET PO (07:48)
[2021-03-25] MEDS: clonazePAM 1 MG TABLET PO (07:51)
--- NOTE | 2021-03-25 09:27 | HE.PHANOTE ---
Follow-up on med rec from the night before. A note was left to call Litzy (patient's RN) at [phone]. I called at 0800 and I could not leave a voicemail since it was full. I retried at 0930, Litzy state she is sleeping and immediately hung up. Guadalupe Knox, PharmD
[2021-03-25] MEDS: Acetaminophen 325 MG TABLET 650 MG PO (13:16)
[2021-03-25] MEDS: Magnesium Hydrox/Alum Hydrox 30 ML ORAL.SUSP PO (13:59)
== END 2021-03-25 14:48 | disposition home or self-care (01) ==
PROVIDERS: Physician Assistant; Emergency Provider Emergency Medicine Emergency Medical Services; PCP Internal Medicine
DX: R45.851 Suicidal ideations (principal); R44.0 Auditory hallucinations; E11.65 Type 2 diabetes mellitus with hyperglycemia; I11.0 Hypertensive heart disease with heart failure; I50.9 Heart failure, unspecified; J45.909 Unspecified asthma, uncomplicated; Z20.822 Contact with and (suspected) exposure to COVID-19
CPT/HCPCS: 36415; 80053; 80143; 80179; 80307; 81025; 82077; 82947; 85025; 87635; 99284; 99285

== ENCOUNTER → 2021-03-26 14:46 | Outpatient (BNVA) | payer OTHER, SELFPAY | PROVIDERS: Visit Provider Registered Nurse Diabetes Educator ==

== ENCOUNTER 2021-04-02 10:34 | Emergency (ER) | payer OTHER, SELFPAY ==
--- NOTE | ~2021-04-02 | XR_ITS ---
EXAMINATION: XR CHEST CLINICAL INFORMATION: Cough/shortness of breath COMPARISON: Chest 01/18/2021 TECHNIQUE: 2 views of the chest were obtained. FINDINGS: The lungs are well-expanded and clear. The heart size and pulmonary vascularity is normal. There are median sternotomy sutures from previous intervention. No gross bony abnormality seen. XR/XR chest 2V IMPRESSION: Unremarkable chest exam. No change from 01/18/2021
[2021-04-02 10:48] VITALS: BP 130/70; PULSE 78; O2SAT 92
[2021-04-02 10:55] VITALS: BP 137/65; PULSE 87; RESP 19; TEMP 36.6; O2SAT 97; BMI 54.8
[2021-04-02 14:20] LABS: COVID-19 Test Negative (Negative); IDNOW Serial# 08D9AD1C
--- NOTE | 2021-04-02 17:18 | ED_ITS ---
HPI - URI/Sore Throat General Chief Complaint: Upper Respiratory Symptoms Stated Complaint: FLU LIKE SYMP, PROD COUGH,+VACC & BOOSTER Time Seen by Provider: 04/02/21 12:10 Source: patient Mode of arrival: EMS Limitations: no limitations History of Present Illness HPI Narrative: 45-year-old female who presents emergency department for evaluation of cough subjective fever, loss of appetite, shortness of breath, dyspnea on exertion, chest pain. The patient has a history of asthma and congestive heart failure. She is on 2 L of oxygen continually and 3 L of oxygen with exertion. She states that for 1 week she has been sick. She has a cough which is productive of thick yellow sputum. She also has rhinorrhea. She feels hot and cold at home and had subjective fevers. She has lost her appetite. She states she does feel short of breath at rest and has shortness of breath with exertion. She has been using her nebulizer treatments with only minimal improvement of her symptoms. She does have pleuritic chest pain which she describes as mild. The patient did see her provider 1 week prior and had a negative COVID test. The patient has received 3 COVID-19 vaccinations. She states that her O2 saturation at home has been going up and down but has not been lower than 94% on oxygen. Related Data Home Medications Medication Instructions Recorded Confirmed levothyroxine 75 mcg tablet 75 mcg PO DAILY 04/07/20 03/24/21 clonazepam 1 mg tablet 1 tab PO BEDTIME PRN 03/24/21 03/25/21 dicyclomine 10 mg capsule 1 cap PO Q6H 03/24/21 03/25/21 dulaglutide 4.5 mg/0.5 mL 4.5 mg SUBCUT QWEEK 03/24/21 03/25/21 [facility] Previous Rx's Medication Instructions Recorded albuterol sulfate 2.5 mg (3 mL) INHALATION QID PRN 11/17/20 #3 ml furosemide 20 mg tablet 20 mg PO DAILY #30 tab 11/17/20 lisinopril 5 mg tablet 5 mg PO DAILY #30 tab 11/17/20 metoprolol succinate 50 mg 50 mg PO DAILY #30 tab 11/17/20 tablet,extended release 24 hr omeprazole 20 mg capsule,delayed 20 mg PO DAILY@0630 #30 cap 11/17/20 release sertraline 50 mg tablet 150 mg PO DAILY #30 tab 11/17/20 trazodone 50 mg tablet 50 mg PO BEDTIME PRN #30 tab 11/17/20 metformin 1,000 mg tablet 1,000 mg PO BID #180 tab 01/16/21 flash glucose sensor (FreeStyle 1 ea TOPICAL Q2W #2 kit 03/26/21 Shelby 14 Day Sensor) atorvastatin 40 mg tablet 40 mg PO DAILY #30 tab 03/30/21 doxycycline hyclate 100 mg tablet 100 mg PO Q12H 10 Days #20 tab 04/02/21 prednisone 20 mg tablet 60 mg PO DAILY 5 Days #15 tab 04/02/21 Allergies Allergy/AdvReac Type Severity Reaction Status Date / Time Penicillins [PENICILLINS] Allergy Intermediate HIVES Verified 03/12/21 13:46 egg [Egg] Allergy Mild SWELLING Verified 03/12/21 13:46 aspirin Allergy Unknown Unknown Verified 03/12/21 13:46 bee pollen [BEE STINGS] Allergy Unknown UNKNOWN Verified 03/12/21 13:46 lactose [LACTOSE] Allergy Unknown UNKNOWN Verified 03/12/21 13:46 latex [LATEX] Allergy Unknown HIVES Verified 03/12/21 13:46 oxycodone Allergy Unknown Unknown Verified 03/12/21 13:46 peanut [PEANUT] Allergy Unknown UNKNOWN Verified 03/12/21 13:46 penicillin V Allergy Unknown Unknown Verified 03/12/21 13:46 kiwi Allergy Anaphylaxis Verified 03/12/21 13:46 eggs,bees,latex,peanuts Allergy Unknown Unknown Uncoded 03/12/21 13:46 medical tape Allergy Unknown Unknown Uncoded 03/12/21 13:46 TAPE,PLASTIC Allergy Unknown RASH Uncoded 03/12/21 13:46 Review of Systems Review of Systems: Yes all other systems are reviewed and are negative Neurologic: Reports Abnormal speech present PMFSH Past Medical History Medical History Anxiety Asthma BMI 50.0-59.9, adult Cardiomyopathy CHF (congestive heart failure) Depression Diabetes mellitus, type 2 Diabetes type 2, uncontrolled DVT (deep vein thrombosis) in Essential hypertension Gallstones Hyperlipidemia LDL goal <70 Hypertension Hypothyroidism Irritable bowel Mood disorder Obesity due to excess calories ROGERIO (obstructive sleep apnea) Pancreatitis Proteinuria PTSD (post-traumatic stress disorder) Pulmonary embolism Surgical History History of dental surgery History of open heart surgery Hx of hernia repair Hx of removal of cyst Family History Family History Paternal Grandmother Diabetes Social History Social History Household Members: None Housing: Apartment Housing Other:: Has COMMUNICATION MANAGER twice a day. Do you presently have visiting nurse or other home services: Yes Alcohol intake: former Patient Tobacco Use Status: Former Tobacco user Tobacco use type: Cigarette e-Cigarette/Vaping Use: Never Used Second Hand Smoke Exposure: Yes Advance Directives: No Advance Directives Information Provided: No service: No Sexual orientation: Lesbian/Good/Homosexual Physical Exam Vital Signs: Vital Signs: Last Vital Signs Temp 98 F 04/02/21 10:55 Pulse 87 04/02/21 10:55 Resp 19 04/02/21 10:55 BP 137/65 04/02/21 10:55 Pulse Ox 97 04/02/21 10:55 Oxygen Flow Rate 2 04/02/21 10:55 BMI result Body Mass Index 54.8 Const: Other: Very pleasant cooperative female patient, on chronic oxygen, sitting in a chair, does not appear to be in distress, answers all questions appropriately HENMT: Head: Yes normal to inspection, Yes normocephalic and Yes atraumatic Ears: hearing grossly normal bilaterally General nose exam: Normal external nose present Face and sinus: Yes normal facial exam Mouth: Normal oral and palatal mucosa present, lip normal, tongue normal, oropharynx normal and moist mucous membranes Throat: Yes posterior oropharynx normal, Yes tonsils normal and Yes uvula midline Eyes: General: appearance normal, both eyes and all related structures Eyelids: Yes eyelids normal Conjunctivae: conjunctivae normal Sclerae: sclerae normal Corneas: corneas normal Pupils: Equal, round and reactive pupils present Neck: Neck: Yes normal visual inspection, Yes no lymphadenopathy, Yes trachea midline and Yes supple Thyroid: Thyroid normal Lymphatic: no lymphadenopathy noted Chest: Chest palpation & inspection: normal inspection of the chest and normal palpation of entire chest wall Resp: Effort & Inspection: normal respiratory effort and able to speak in complete sentences Auscultation: clear to auscultation bilaterally Cardio: Rate: regular rate Rhythm: regular rhythm Heart sounds: S1 normal heart sound present, S2 normal heart sound present and no murmurs GI: Inspection: Yes normal to inspection and Yes obesity Palpation (GI): Soft to palpation, nontender and No hepatosplenomegaly present Auscultation: normal bowel sounds : General: Yes no CVA tenderness Back/Spine/Pelvis: Back: no CVA tenderness Thoracic/Lumbar Spine: thoracic and lumbar spine normal to inspection Skin: General skin exam: no rashes or lesions noted, no erythema and no jaundice Lesions: no lesions Rashes: no rashes Trauma: no lacerations or abrasions Wounds: no wounds Neuro: General: moves all extremities and no focal motor deficits Cranial nerves: Yes Equal, round and reactive pupils present Cognition (Neuro): normal cognition Speech: Abnormal speech present Motor exam (neuro): Motor abnormalities not present Extrem: General: Yes normal to inspection, Yes no pedal edema and Yes no calf tenderness Right upper extremity: normal to inspection Left upper extremity: normal to inspection Right lower extremity: normal to inspection Left lower extremity: normal to inspection Psych: Appearance: grossly normal Mental Status: mental status grossly normal Speech and movement: Normal speech and movement present Affect: normal affect Attitude: cooperative Thought process: Normal thought process present Insight: Good insight present (Psych) Course Course Course Narrative: 45-year-old female with history of asthma and congestive heart failure who presents emergency department for evaluation of upper respiratory illness x1 week. Patient has received 3 COVID-19 vaccinations. She was seen by her provider 1 week prior had a negative COVID test. She states that she has been using her nebulizers in taking her usual treatments and her symptoms have gotten worse therefore she came to the emergency department today. Patient's vital signs were normal. Lung exam was unremarkable. Chest x-ray was unremarkable. COVID-19 test was negative. this time I believe that the patient does have an upper respiratory tract infection, concerned that her symptoms are now worse that she may have a bacterial process therefore she will be treated with doxycycline 100 mg twice a day for 10 days and prednisone 60 mg once a day for 5 days. She was given printed and verbal instructions and discharged home. MDM - URI/Sore Throat Lab Data Labs: Lab Results 04/02/21 Range/Units 13:51 COVID-19 ([facility]) Negative (Negative) COVID-19 Clin Com See Note Discharge Plan Discharge Clinical Impression: Acute bronchitis Qualifiers: Bronchitis organism: unspecified organism Qualified Code(s): J20.9 - Acute bronchitis, unspecified Patient Disposition: Home, Self-Care Instructions: Acute Bronchitis (ED) Additional Instructions: Your chest x-ray was negative, there was no signs of pneumonia. This is reassuring Your COVID-19 test was negative. At this time, I believe that you have bronchitis and I want to treat you with prednisone and antibiotics. Take doxycycline 100 mg pills, 1 pill twice a day for 10 days. This is an antibiotic that should treat bacterial infections that cause bronchitis. Take prednisone 20 mg pills, 3 pills once a day for 5 days. Continue taking your medications as prescribed by your providers. Watch for signs of pneumonia which include fever, chills, increased chest pain, increased shortness of breath, increased shortness of breath with exertion and a drop in your O2 saturation below 90% despite using 2 to 3 L of oxygen. Take Tylenol (acetaminophen) 500 mg pills, 2 pills every 4 to 6 hours as needed for pain or fever Follow-up with your doctor in 2 days. Please return to the emergency department if your symptoms get worse or if you develop any symptoms that are concerning to you. Prescriptions: New prednisone 20 mg tablet 60 mg PO DAILY 5 Days Qty: 15 RF: 0 doxycycline hyclate 100 mg tablet 100 mg PO Q12H 10 Days Qty: 20 RF: 0 No Action metformin 1,000 mg tablet 1,000 mg PO BID Qty: 180 RF: 1 FreeStyle Shelby 14 Day Sensor Kit 1 ea topical Q2W Qty: 2 RF: 11 atorvastatin 40 mg tablet 40 mg PO DAILY Qty: 30 RF: 6 levothyroxine 75 mcg tablet 75 mcg PO DAILY RF: 0 albuterol sulfate 2.5 mg /3 mL (0.083 %) Solution For Nebulization 2.5 mg inhalation QID PRN (Reason: Allergic Reaction) Qty: 3 RF: 0 trazodone 50 mg Tablet 50 mg PO BEDTIME PRN (Reason: Sleep) Qty: 30 RF: 0 metoprolol succinate 50 mg Tablet Extended Release 24 Hr 50 mg PO DAILY Qty: 30 RF: 0 omeprazole 20 mg Capsule,Delayed Release(Dr/Ec) 20 mg PO DAILY@0630 Qty: 30 RF: 0 lisinopril 5 mg Tablet 5 mg PO DAILY Qty: 30 RF: 0 furosemide 20 mg Tablet 20 mg PO DAILY Qty: 30 RF: 0 sertraline 50 mg Tablet 150 mg PO DAILY Qty: 30 RF: 0 dicyclomine 10 mg capsule 1 cap PO Q6H RF: 0 clonazepam 1 mg tablet 1 tab PO BEDTIME PRN (Reason: Insomnia) RF: 0 Trulicity 4.5 mg/0.5 mL pen injector 4.5 mg subcut QWEEK RF: 0
[2021-04-02] MEDS: predniSONE 20 MG TABLET 60 MG PO (18:21)
[2021-04-02 21:48] VITALS: BP 132/67; PULSE 87; RESP 16; TEMP 37.1; O2SAT 97
== END 2021-04-02 22:39 | disposition home or self-care (01) ==
PROVIDERS: Physician Assistant Medical; Emergency Provider Emergency Medicine Emergency Medical Services; PCP Internal Medicine
DX: J20.9 Acute bronchitis, unspecified (principal); Z20.822 Contact with and (suspected) exposure to COVID-19; E11.9 Type 2 diabetes mellitus without complications; I10 Essential (primary) hypertension; E78.5 Hyperlipidemia, unspecified; J45.909 Unspecified asthma, uncomplicated; Z86.718 Personal history of other venous thrombosis and embolism; Z79.02 Long term (current) use of antithrombotics/antiplatelets; Z79.899 Other long term (current) drug therapy; Z79.4 Long term (current) use of insulin
CPT/HCPCS: 71046; 87635; 99283; 99284

== ENCOUNTER 2021-04-18 11:51 | Emergency (ER) | payer OTHER, SELFPAY ==
[2021-04-18 12:06] VITALS: BP 116/74; PULSE 87; O2SAT 96
[2021-04-18 13:59] VITALS: BP 138/90; PULSE 79; RESP 19; TEMP 37.2; O2SAT 95; BMI 51.6
[2021-04-18 17:08] LABS: Appearance Urine CLEAR; Color Urine YELLOW; Glucose Urine UA 500 MG/DL (NEG); Leukocyte Esterase Urine NEG (NEG); Nitrite Urine NEG (NEG); PH 7.5 (5.0-8.0); UACC Culture Trigger NO; Urine Blood NEG (NEG); Urine Ketones NEG (NEG); Urine Protein 2+ MG/DL (NEG-TRACE)
[2021-04-18 17:23] LABS: Bacteria Urine TRACE /LPF; Mucus Urine TRACE /LPF; RBC Urine 0-2 /HPF (0); Squamous Epithelial Cell Urine 1+ /LPF; WBC Urine 0-2 /HPF (0-4)
== END 2021-04-18 19:53 | disposition left against medical advice (07) ==
PROVIDERS: Emergency Provider Emergency Medicine; PCP Internal Medicine
DX: R10.9 Unspecified abdominal pain (principal)
CPT/HCPCS: 81001; 81003; 99283

== ENCOUNTER 2021-04-26 09:06 | Emergency (ER) | payer OTHER, SELFPAY ==
--- NOTE | ~2021-04-26 | US_ITS ---
EXAM: Pelvic Ultrasound CLINICAL INDICATION: Left lower quadrant pain. COMPARISON: CT chest abdomen pelvis earlier today. TECHNIQUE: The pelvis was evaluated using transabdominal and transvaginal imaging. Color Doppler imaging and spectral analysis of the bilateral ovaries was also attempted. Today's examination is limited secondary to patient body habitus and difficulties with patient positioning. FINDINGS: The uterus measures 9.2 x 4.5 x 5.4 cm in longitudinal by AP by transverse dimension. The endometrial stripe is not thickened and measures 0.7 cm. 1.4 cm hypoechoic avascular focus within the posterior uterine body is nonspecific but most suggestive of a small fibroid. The cervix measures approximately 2.8 cm in length. Fluid is noted within the cervical canal. The right ovary measures approximately 2.7 x 1.3 x 2.2 cm and is normal in appearance. Spectral analysis reveals normal arterial and venous waveforms in the right ovary. The left ovary measures approximately 3.9 x 2.0 x 2.1 cm. Spectral Doppler imaging of the left ovary with attempted, however, no definitive waveforms appreciated, however, this is suspected to be secondary to ovary positioning. There are no abnormal adnexal masses. There is no free fluid in the pelvis. US/US pelvic and transvaginal IMPRESSION: -Normal thickness endometrial stripe. -Suspected 1.4 cm uterine fibroid. -Fluid present within the cervical canal. Clinical correlation recommended. -Unremarkable right ovary. -The left ovary is normal in appearance although arterial and venous waveforms were not clearly identified. This however was felt to be secondary to patient body habitus and positioning of the left ovary. Ovarian torsion however cannot be excluded on the basis of this examination. Clinical correlation is recommended. 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
--- NOTE | ~2021-04-26 | CT_ITS ---
EXAMINATION: CT ABDOMEN AND PELVIS WITHOUT CONTRAST CLINICAL INFORMATION: Left flank pain COMPARISON: CT abdomen and pelvis with contrast 09/02/2020. TECHNIQUE: Multidetector volumetric imaging was performed from the superior aspect of the liver through the pubic symphysis. Sagittal and coronal reformatted images were obtained on the technologist's workstation. This CT examination was performed using dose optimization techniques as appropriate, variously including the following: *Automated exposure control *Adjustment of mA and/or kV according to patient size (this includes techniques or standardized protocols for targeted exams where dose is matched to indication/reason for exam; i.e. extremities or head) *Use of iterative reconstruction technique DLP: 1443 mGy-cm FINDINGS: LUNG BASES: There is bibasilar and right middle lobe atelectatic changes. The heart size is normal. LIVER, GALLBLADDER, AND BILIARY TREE: The liver is normal in size, shape, and attenuation. No focal hepatic lesion or biliary ductal dilatation is present. There are multiple round radiopaque gallstones without wall thickening or pericholecystic fluid collection. The CBD is normal caliber. PANCREAS: Unremarkable. SPLEEN: Unremarkable. ADRENAL GLANDS: Unremarkable. KIDNEYS AND URETERS: The kidneys are normal in size, shape, and attenuation. No hydronephrosis, hydroureter, or calculi seen. No perinephric stranding. BLADDER: Unremarkable. GASTROINTESTINAL TRACT: There is scattered stool and gas seen throughout the colon without significant distention. The small bowel loops are normal caliber. Appendix is normal caliber. No free air or free fluid seen. ABDOMINAL WALL: There is no evidence of hernia. There is a groundglass opacity seen in bilateral flanks of the abdominal wall question edema or bilateral contusions. No hemorrhage seen. There is minimal thickening of the right subcutaneous soft tissue on axial image 58/3 question contusion. Correlated with clinical exam LYMPH NODES: Normal. VASCULAR: Unremarkable. PELVIC VISCERA: The uterus is anteverted and appears unremarkable. There is no adnexal mass or free fluid. OSSEOUS STRUCTURES: No lytic or sclerotic process. CT/CT abdomen pelvis wo con IMPRESSION: No acute intra-abdominal process. Groundglass opacity seen in bilateral abdominal wall question edema or contusion. Minimal right abdominal wall subcutaneous thickening with likely calcification question contusion. Correlate with clinical examination. Fleischner guidelines were followed.
--- NOTE | ~2021-04-26 | US_ITS ---
EXAM: Pelvic Ultrasound CLINICAL INDICATION: Left lower quadrant pain. COMPARISON: CT chest abdomen pelvis earlier today. TECHNIQUE: The pelvis was evaluated using transabdominal and transvaginal imaging. Color Doppler imaging and spectral analysis of the bilateral ovaries was also attempted. Today's examination is limited secondary to patient body habitus and difficulties with patient positioning. FINDINGS: The uterus measures 9.2 x 4.5 x 5.4 cm in longitudinal by AP by transverse dimension. The endometrial stripe is not thickened and measures 0.7 cm. 1.4 cm hypoechoic avascular focus within the posterior uterine body is nonspecific but most suggestive of a small fibroid. The cervix measures approximately 2.8 cm in length. Fluid is noted within the cervical canal. The right ovary measures approximately 2.7 x 1.3 x 2.2 cm and is normal in appearance. Spectral analysis reveals normal arterial and venous waveforms in the right ovary. The left ovary measures approximately 3.9 x 2.0 x 2.1 cm. Spectral Doppler imaging of the left ovary with attempted, however, no definitive waveforms appreciated, however, this is suspected to be secondary to ovary positioning. There are no abnormal adnexal masses. There is no free fluid in the pelvis. US/US pelvic ovarian doppler IMPRESSION: -Normal thickness endometrial stripe. -Suspected 1.4 cm uterine fibroid. -Fluid present within the cervical canal. Clinical correlation recommended. -Unremarkable right ovary. -The left ovary is normal in appearance although arterial and venous waveforms were not clearly identified. This however was felt to be secondary to patient body habitus and positioning of the left ovary. Ovarian torsion however cannot be excluded on the basis of this examination. Clinical correlation is recommended. BUSINESS CHANGE MANAGER consultation likely warranted.
[2021-04-26 09:10] VITALS: BP 113/64; PULSE 83; RESP 22; BMI 40.3
--- NOTE | 2021-04-26 09:25 | PC.NURSE ---
patient arrived with out home o2. 2L placed on patient and o2 sat up to 93%.
[2021-04-26 09:27] VITALS: BP 113/51; PULSE 87; RESP 18; TEMP 37.1; O2SAT 92
[2021-04-26 09:43] LABS: MANUAL DIFF FLAG NO
[2021-04-26 09:44] LABS: Basophils Percent Auto 0.5 % (0-2); Eosinophils Absolute Auto 0.2 X10*3/uL (0.0-0.4); Eosinophils Percent Auto 1.8 % (0-4); Hematocrit 40.8 % (37.0-47.0); Hemoglobin 12.1 g/dl (12.0-16.0); Imm Gran Abs Auto 0.02 X10*3/uL (0.00-0.03); Imm Gran Pct Auto 0.2 % (0.0-0.4); Lymphocytes Absolute Auto 1.8 X10*3/uL (1.2-4.9); Lymphocytes Percent Auto 22.7 % (20-40); Mean Corpuscular HGB Conc 29.7 g/dl (31.0-35.0); Mean Corpuscular Hemoglobin 24.4 pg (27.0-33.0); Mean Corpuscular Volume 82.4 fL (80.0-98.0); Mean Platelet Volume 10.8 fL (9.4-12.3); Monocytes Absolute Auto 0.7 X10*3/uL (0.1-1.2); Monocytes Percent Auto 8.1 % (2-11); NRBC Pct Auto 0.2 /100WBC (0.0-0.2); Neutrophils Absolute Auto 5.4 x10*3/uL (2.0-8.3); Neutrophils Percent Auto 66.7 % (45-73); Platelet Count 308 X10*3/uL (160-400); Red Blood Count 4.95 X10*6/uL (4.20-5.50); Red Cell Distribution Width 19.9 % (11.0-16.0); White Blood Count 8.1 X10*3/uL (4.8-10.8)
[2021-04-26 09:49] LABS: INTERNATIONAL NORM RATIO 1.8 (0.9-1.1); Prothrombin Time 20.2 SEC (9.9-13.0)
[2021-04-26 09:53] LABS: Appearance Urine HAZY; Color Urine YELLOW; Glucose Urine UA NEG (NEG); Leukocyte Esterase Urine NEG (NEG); Nitrite Urine NEG (NEG); PH 5.5 (5.0-8.0); Specific Gravity - Urine 1.025 (1.005-1.025); UACC Culture Trigger NO; Urine Blood 3+ (NEG); Urine Ketones NEG (NEG); Urine Protein TRACE MG/DL (NEG-TRACE)
[2021-04-26 10:01] LABS: Amorphous Sediment Urine 1+ /LPF; Bacteria Urine 2+ /LPF; RBC Urine 30-49 /HPF (0); Squamous Epithelial Cell Urine 2+ /LPF; WBC Urine 0 /HPF (0-4)
[2021-04-26 10:08] LABS: Alanine Aminotransferase 21 U/L (0-31); Albumin Level 3.5 g/dL (3.5-5.0); Alkaline Phosphatase 78 U/L (39-117); Anion Gap 13 (12-20); Aspartate Amino Transferase 17 U/L (5-31); Bilirubin Total 0.6 mg/dL (0.0-1.0); Blood Urea Nitrogen 11 mg/dL (9-16); Calcium 9.5 mg/dL (8.4-10.2); Carbon Dioxide 26 mmol/L (22-29); Chloride 106 mmol/L (96-108); Creatinine Clr Calc Pharmacy 107.9; Estimated Glomerular Filt Rate > 60; Glucose Random 158 mg/dL (60-115); Lipase 67 U/L (8-78); Magnesium 1.3 mg/dL (1.6-2.6); Potassium 3.9 mmol/L (3.3-5.1); Sodium 141 mmol/L (135-145); Total Protein 6.4 g/dL (6.5-8.0)
--- NOTE | 2021-04-26 10:08 | ED_ITS ---
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 She presents emergency department complaining of left lower/left lateral abdominal pain has been intermittent for a couple of weeks. She has been experiencing intermittent diarrhea without bloody or black stools. Denies nausea or vomiting. She is concerned because she is now experiencing vaginal bleeding since yesterday night in addition to her pain. She states that she has been on oral contraceptives for many years and has not had any menstrual bleeding since 2015. She denies any possibility of . She denies any vaginal discharge or pelvic pain. Denies dysuria, urinary frequency/hesitancy/urgency. Denies lower back pain or suprapubic pain. Denies fevers or chills. Related Data Home Medications Medication Instructions Recorded Confirmed levothyroxine 75 mcg tablet 75 mcg PO DAILY 04/07/20 03/24/21 clonazepam 1 mg tablet 1 tab PO BEDTIME PRN 03/24/21 03/25/21 dicyclomine 10 mg capsule 1 cap PO Q6H 03/24/21 03/25/21 dulaglutide 4.5 mg/0.5 mL 4.5 mg SUBCUT QWEEK 03/24/21 03/25/21 subcutaneous pen injector (Trulicity) Previous Rx's Medication Instructions Recorded albuterol sulfate 2.5 mg (3 mL) INHALATION QID PRN 11/17/20 #3 ml furosemide 20 mg tablet 20 mg PO DAILY #30 tab 11/17/20 lisinopril 5 mg tablet 5 mg PO DAILY #30 tab 11/17/20 metoprolol succinate 50 mg 50 mg PO DAILY #30 tab 11/17/20 tablet,extended release 24 hr omeprazole 20 mg capsule,delayed 20 mg PO DAILY@0630 #30 cap 11/17/20 release sertraline 50 mg tablet 150 mg PO DAILY #30 tab 11/17/20 trazodone 50 mg tablet 50 mg PO BEDTIME PRN #30 tab 11/17/20 metformin 1,000 mg tablet 1,000 mg PO BID #180 tab 01/16/21 flash glucose sensor (FreeStyle 1 ea TOPICAL Q2W #2 kit 03/26/21 Shelby 14 Day Sensor) atorvastatin 40 mg tablet 40 mg PO DAILY #30 tab 03/30/21 doxycycline hyclate 100 mg tablet 100 mg PO Q12H 10 Days #20 tab 04/02/21 prednisone 20 mg tablet 60 mg PO DAILY 5 Days #15 tab 04/02/21 cyclobenzaprine 10 mg tablet 10 mg PO BID PRN #14 tab 04/26/21 lidocaine 5 % topical patch 1 patch TOPICAL DAILY #15 ea 04/26/21 (Lidoderm) Allergies Allergy/AdvReac Type Severity Reaction Status Date / Time Penicillins Allergy Intermediate HIVES Verified 03/12/21 13:46 [PENICILLINS] egg [Egg] Allergy Mild SWELLING Verified 03/12/21 13:46 aspirin Allergy Unknown Unknown Verified 03/12/21 13:46 bee pollen [BEE Allergy Unknown UNKNOWN Verified 03/12/21 13:46 STINGS] lactose [LACTOSE] Allergy Unknown UNKNOWN Verified 03/12/21 13:46 latex [LATEX] Allergy Unknown HIVES Verified 03/12/21 13:46 oxycodone Allergy Unknown Unknown Verified 03/12/21 13:46 peanut [PEANUT] Allergy Unknown UNKNOWN Verified 03/12/21 13:46 penicillin V Allergy Unknown Unknown Verified 03/12/21 13:46 kiwi Allergy Anaphylaxis Verified 03/12/21 13:46 eggs,bees,latex,pe Allergy Unknown Unknown Uncoded 03/12/21 13:46 anuts medical tape Allergy Unknown Unknown Uncoded 03/12/21 13:46 TAPE,PLASTIC Allergy Unknown RASH Uncoded 03/12/21 13:46 Review of Systems Verdana 4l Review of Systems: Verdana 4d Montgomery 4Bd Constitutional: Montgomery 4d No weight loss, fever, chills, weakness or fatigue. Montgomery 4Bd HEENT: Montgomery 4d No visual loss, blurred vision, double vision or yellow sclera. No hearing loss, sneezing, congestion, runny nose or sore throat. ArialArial 4Bd Skin: No rash or itching. Cardiovascular: No chest pain, chest pressure or chest discomfort. No palpitations or pedal edema. Respiratory: No shortness of breath, cough or sputum production. Gastrointestinal: + abdominal pain. No anorexia, nausea, vomiting. No blood in stool. Genitourinary: + vaginal bleeding. No burning micturition. No urinary frequency or incontinence. Neurologic: No headache, dizziness, syncope, unilateral weakness, ataxia, numbness or tingling in the extremities. No change in bowel or bladder control. Musculoskeletal: No muscle pain, back pain, joint pain or stiffness. Lymphatics: No enlarged lymph nodes. Psychiatric:No depression or anxiety. Endocrine: No polyuria or polydipsia. [facility] Past Medical History Attestation statement: The following information was validated with the patient. Source: old records reviewed Medical History Anxiety Asthma BMI 50.0-59.9, adult Cardiomyopathy CHF (congestive heart failure) Depression Diabetes mellitus, type 2 Diabetes type 2, uncontrolled DVT (deep vein thrombosis) in Essential hypertension Gallstones Hyperlipidemia LDL goal <70 Hypertension Hypothyroidism Irritable bowel Mood disorder Obesity due to excess calories RGOERIO (obstructive sleep apnea) Pancreatitis Proteinuria PTSD (post-traumatic stress disorder) Pulmonary embolism Surgical History History of dental surgery History of open heart surgery Hx of hernia repair Hx of removal of cyst Family History Family History Paternal Grandmother Diabetes Social History Social History Household Members: None Housing: Apartment Housing Other:: 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 Do you presently have visiting nurse or other home services: Yes Alcohol intake: current Alcohol intake frequency: a few times a month Patient Tobacco Use Status: Former Tobacco user Tobacco use type: Cigarette e-Cigarette/Vaping Use: Never Used Second Hand Smoke Exposure: Yes Substance Use Type: Marijuana service: No Sexual orientation: Lesbian/Good/Homosexual Physical Exam Verdana 4l Vital Signs: Verdana 4d Verdana 4d Vital Signs: Verdana 4d Verdana 4Bd Last Vital Signs Verdana 4d Front Attendant New 4d Front Attendant New 4d Temp 97.8 F 04/26/21 15:51 Front Attendant New 4d Pulse 81 04/26/21 15:51 Front Attendant New 4d Resp 16 04/26/21 15:51 BP 100/57 L 04/26/21 15:51 Pulse Ox 93 04/26/21 15:51 BMI result Body Mass Index 40.3 Vital signs have been reviewed as normal and appeared to be correct. Blood pressure normal.? Heart rate normal.? Respiration rate normal. Temperature normal.? Oxygen saturation normal. Appearance: Alert.?Oriented to person, place and time. No acute distress.?Normal affect. Eyes: Pupils equal, round and reactive to light.? ENT: Pharynx normal.?? Neck: Normal inspection.? Neck supple.?? CVS: Heart sounds normal. Normal heart rate and rhythm.? Pulses normal.?? Respiratory: No respiratory distress.? Lung sounds clear to auscultation bilate rally?? Abdomen: Soft, mild tenderness with palpation of left abdomen. Normoactive bowel sounds. No pulsatile mass.?? Genitourinary: Left CVA tenderness. Spotting noted to sanitary pad. Skin: Skin warm and dry.? Normal skin color.? Normal skin turgor.?? Extremities: No lower extremity edema.? No calf ttp? Neuro: Moves all extremities spontaneously. Sensation intact bilaterally. No focal neuro deficits. Ambulates with normal steady gait. Course Course Course Narrative: Patient is a 46-year-old female being evaluated for abdominal pain and vaginal bleeding. Serum labs to be obtained to exclude leukocytosis, anemia, electrolyte abnormality, abnormal renal function, abnormal hepatic/ biliary function, INR as she is on Coumadin, hCG quant to exclude , and urinalysis to exclude infection. CT of the abdomen without contrast to assess for intra-abdominal pathology such as renal calculi. Tylenol for pain. Disposition pending results Reevaluation(s) Reevaluation #1: Electrolytes and renal function normal, magnesium low 1.3 will receive magnesium 100 mg p.o. Lipase normal, hCG quant negative. INR is low 1.8. Urinalysis is positive for 3+ blood, urine RBC 30-49, bacteria 2+, and epithelial cell 2+, asymptomatic bacteriuria which may represent contamination, will await urine cultures prior to treating. Plan for pelvic examination and will obtain cultures for gonorrhea, chlamydia, bacterial vaginosis panel, trichomonas. Time: 10:21 Reevaluation #2: CT of the abdomen reveals no acute intra-abdominal process, small bowel was normal, pending is normal, no free air or free fluid. There is mention of pacing he said the bilateral abdominal wall, and subcutaneous thickening with question of edema or contusion. On physical exam there is no bruising, or discoloration of the skin, and she denies any recent falls or trauma. Time: 11:10 Reevaluation #3: Pelvic ultrasound reveals 1.4 cm uterine fibroid, unremarkable right ovary, left ovary normal in appearance but arterial and venous waveforms not clearly identified. Ovarian torsion cannot be excluded. Consulted Gynecology Dr. Frias, he is going to come to examine the patient. Patient is followed by her manager division Radha Angela currently prescribed medroxyprogesterone. Time: 14:02 Additional Reevaluation(s): 1515: Patient evaluated at the bedside with Dr. Frias. She does provide a change in her history and states it is possible that she may have recently missed a few doses of her oral contraceptive, though she is unclear. She was advised that if she did in fact miss a few doses of the medication, that would explain the breakthrough vaginal bleeding, however if she did not have any dosages missed med which she will require outpatient provider to further evaluate for intrauterine pathology, such as cancer. In addition, she was advised by Dr. Frias be that prolonged usage of oral progesterone may put her at an increased risk for blood clots as she has history of unprovoked DVT/PE and is currently on Coumadin, and advise that her manager division provider may consider an intrauterine device with progesterone. Given that she is not experiencing any urinary complaints, and CT is unremarkable for renal calculi or intra-abdominal pathology, I suspect that her pain is more consistent with musculoskeletal nature, lumbar strain. For this will treat with Flexeril and topical lidocaine. Discussed plan of care for discharge home, discussed return precautions, patient verbalizes understanding, all questions answered, and agrees with plan for discharge home. Medical Decision Making Lab Data Result diagrams: 04/26/21 09:38 04/26/21 09:38 Labs: Lab Results 04/26/21 04/26/21 04/26/21 Range/Units 09:38 09:38 09:38 WBC 8.1 (4.8-10.8) X10*3/uL RBC 4.95 (4.20-5.50) X10*6/uL Hgb 12.1 (12.0-16.0) g/dl Hct 40.8 (37.0-47.0) % MCV 82.4 (80.0-98.0) fL MCH 24.4 L (27.0-33.0) pg MCHC 29.7 L (31.0-35.0) g/dl RDW 19.9 H (11.0-16.0) % Plt Count 308 (160-400) X10*3/uL MPV 10.8 (9.4-12.3) fL Immature Gran % (Auto) 0.2 (0.0-0.4) % Neut % (Auto) 66.7 (45-73) % Lymph % (Auto) 22.7 (20-40) % Levy % (Auto) 8.1 (2-11) % Eos % (Auto) 1.8 (0-4) % Baso % (Auto) 0.5 (0-2) % Lymph # (Auto) 1.8 (1.2-4.9) X10*3/uL Levy # (Auto) 0.7 (0.1-1.2) X10*3/uL Eos # (Auto) 0.2 (0.0-0.4) X10*3/uL Baso # (Auto) 0.0 (0.0-0.2) X10*3/uL Abs Immat Gran (auto) 0.02 (0.00-0.03) X10*3/uL Absolute Neuts (auto) 5.4 (2.0-8.3) x10*3/uL Absolute Nucleated RBC 0.020 H (0.0-0.012) X10*3/uL Nucleated RBC % (auto) 0.2 (0.0-0.2) /100WBC PT 20.2 H (9.9-13.0) SEC INR 1.8 H (0.9-1.1) Sodium 141 (135-145) mmol/L Potassium 3.9 (3.3-5.1) mmol/L Chloride 106 (96-108) mmol/L Carbon Dioxide 26 (22-29) mmol/L Anion Gap 13 (12-20) BUN 11 (9-16) mg/dL Creatinine 0.85 (0.5-1.4) mg/dL Estim Creat Clear Calc 107.9 Estimated GFR > 60 Random Glucose 158 H (60-115) mg/dL Calcium 9.5 D (8.4-10.2) mg/dL Magnesium 1.3 L* (1.6-2.6) mg/dL Total Bilirubin 0.6 (0.0-1.0) mg/dL AST 17 (5-31) U/L ALT 21 (0-31) U/L Alkaline Phosphatase 78 D (39-117) U/L Total Protein 6.4 L (6.5-8.0) g/dL Albumin 3.5 (3.5-5.0) g/dL Lipase 67 (8-78) U/L Beta HCG, Quant < 2 mIU/mL Urine Color Urine Appearance Urine pH (5.0-8.0) Ur Specific Hampton (1.005-1.025) Urine Protein (NEG-TRACE) MG/DL Urine Glucose (UA) (NEG) MG/DL Urine Ketones (NEG) MG/DL Urine Blood (NEG) Urine Nitrite (NEG) Ur Leukocyte Esterase (NEG) Urine RBC (0) /HPF Urine WBC (0-4) /HPF Ur Squamous Epith Cells /LPF Amorphous Sediment /LPF Urine Bacteria /LPF Chlam trachomat DNA PCR (Not Detect.) N.gonorrhoeae DNA (PCR) (Not Detect.) 04/26/21 04/26/21 Range/Units 09:48 12:47 WBC (4.8-10.8) X10*3/uL RBC (4.20-5.50) X10*6/uL Hgb (12.0-16.0) g/dl Hct (37.0-47.0) % MCV (80.0-98.0) fL MCH (27.0-33.0) pg MCHC (31.0-35.0) g/dl RDW (11.0-16.0) % Plt Count (160-400) X10*3/uL MPV (9.4-12.3) fL Immature Gran % (Auto) (0.0-0.4) % Neut % (Auto) (45-73) % Lymph % (Auto) (20-40) % Levy % (Auto) (2-11) % Eos % (Auto) (0-4) % Baso % (Auto) (0-2) % Lymph # (Auto) (1.2-4.9) X10*3/uL Levy # (Auto) (0.1-1.2) X10*3/uL Eos # (Auto) (0.0-0.4) X10*3/uL Baso # (Auto) (0.0-0.2) X10*3/uL Abs Immat Gran (auto) (0.00-0.03) X10*3/uL Absolute Neuts (auto) (2.0-8.3) x10*3/uL Absolute Nucleated RBC (0.0-0.012) X10*3/uL Nucleated RBC % (auto) (0.0-0.2) /100WBC PT (9.9-13.0) SEC INR (0.9-1.1) Sodium (135-145) mmol/L Potassium (3.3-5.1) mmol/L Chloride (96-108) mmol/L Carbon Dioxide (22-29) mmol/L Anion Gap (12-20) BUN (9-16) mg/dL Creatinine (0.5-1.4) mg/dL Estim Creat Clear Calc Estimated GFR Random Glucose (60-115) mg/dL Calcium (8.4-10.2) mg/dL Magnesium (1.6-2.6) mg/dL Total Bilirubin (0.0-1.0) mg/dL AST (5-31) U/L ALT (0-31) U/L Alkaline Phosphatase (39-117) U/L Total Protein (6.5-8.0) g/dL Albumin (3.5-5.0) g/dL Lipase (8-78) U/L Beta HCG, Quant mIU/mL Urine Color YELLOW Urine Appearance HAZY Urine pH 5.5 (5.0-8.0) Ur Specific Hampton 1.025 (1.005-1.025) Urine Protein TRACE (NEG-TRACE) MG/DL Urine Glucose (UA) NEG (NEG) MG/DL Urine Ketones NEG (NEG) MG/DL Urine Blood 3+ H (NEG) Urine Nitrite NEG (NEG) Ur Leukocyte Esterase NEG (NEG) Urine RBC 30-49 H (0) /HPF Urine WBC 0 (0-4) /HPF Ur Squamous Epith Cells 2+ /LPF Amorphous Sediment 1+ /LPF Urine Bacteria 2+ /LPF Chlam trachomat DNA PCR NOT DETECTED (Not Detect.) N.gonorrhoeae DNA (PCR) NOT DETECTED (Not Detect.) Imaging Data CT scan - abdomen: Radiologist's impression: IMPRESSION: No acute intra-abdominal process. ? Groundglass opacity seen in bilateral abdominal wall question edema or contusion. Minimal right abdominal wall subcutaneous thickening with likely calcification question contusion. Correlate with clinical examination. ? pelvis US: Radiologist's impression: IMPRESSION: -Normal thickness endometrial stripe. -Suspected 1.4 cm uterine fibroid. -Fluid present within the cervical canal. Clinical correlation recommended. -Unremarkable right ovary. -The left ovary is normal in appearance although arterial and venous waveforms were not clearly identified. This however was felt to be secondary to patient body habitus and positioning of the left ovary. Ovarian torsion however cannot be excluded on the basis of this examination. Clinical correlation is recommended. [employer]IC consultation likely warranted. Discharge Plan Discharge Clinical Impression: Vaginal bleeding, Lumbar strain Patient Disposition: Home, Self-Care Instructions: Dysfunctional Uterine Bleeding (ED), Acute Low Back Pain (ED) Additional Instructions: You were evaluated in the emergency department for concerns of abdominal pain and vaginal bleeding. Your blood work, CT of your abdomen, and pelvic ultrasound were all normal. The incidentally new prescription for muscle relaxer called Flexeril, you should not drive or operate machinery while taking this medication as it may make you drowsy, and a new prescription for a Lidoderm patch which can be applied to the skin on your left side/back. As we discussed, you need to contact your manager division provider to schedule a visit to have your vaginal bleeding further evaluated outpatient. Prescriptions: New cyclobenzaprine 10 mg tablet 10 mg PO BID PRN (Reason: muscle spasm) Qty: 14 0RF lidocaine [Lidoderm] 5 % adhesive patch,medicated 1 patch topical DAILY Qty: 15 0RF Rx Instructions: leave on most painful area for up to 12 hrs No Action metformin 1,000 mg tablet 1,000 mg PO BID Qty: 180 1RF FreeStyle Shelby 14 Day Sensor Kit 1 ea topical Q2W Qty: 2 11RF atorvastatin 40 mg tablet 40 mg PO DAILY Qty: 30 6RF levothyroxine 75 mcg tablet 75 mcg PO DAILY 0RF albuterol sulfate 2.5 mg /3 mL (0.083 %) Solution For Nebulization 2.5 mg inhalation QID PRN (Reason: Allergic Reaction) Qty: 3 0RF trazodone 50 mg Tablet 50 mg PO BEDTIME PRN (Reason: Sleep) Qty: 30 0RF metoprolol succinate 50 mg Tablet Extended Release 24 Hr 50 mg PO DAILY Qty: 30 0RF Protocol: Hold for SBP/HR < HOLD for SBP < : 90 HOLD for HR < : 60 omeprazole 20 mg Capsule,Delayed Release(Dr/Ec) 20 mg PO DAILY@0630 Qty: 30 0RF lisinopril 5 mg Tablet 5 mg PO DAILY Qty: 30 0RF Protocol: Hold for SBP< HOLD for SBP < : 90 furosemide 20 mg Tablet 20 mg PO DAILY Qty: 30 0RF Protocol: Hold for SBP< HOLD for SBP < : 90 sertraline 50 mg Tablet 150 mg PO DAILY Qty: 30 0RF dicyclomine 10 mg capsule 1 cap PO Q6H 0RF clonazepam 1 mg tablet 1 tab PO BEDTIME PRN (Reason: Insomnia) 0RF Trulicity 4.5 mg/0.5 mL pen injector 4.5 mg subcut QWEEK 0RF prednisone 20 mg tablet 60 mg PO DAILY 5 Days Qty: 15 0RF doxycycline hyclate 100 mg tablet 100 mg PO Q12H 10 Days Qty: 20 0RF Interventions: ED Discharge Assessment Last Done: 04/26/21 15:46 Discharge Date/Time: 04/26/21 16:31
[2021-04-26 10:11] LABS: HCG Quantitative < 2 mIU/mL
[2021-04-26] MEDS: Acetaminophen 325 MG TABLET 650 MG PO (10:34)
[2021-04-26] MEDS: Magnesium Oxide 400 MG TABLET 800 MG PO (10:35)
[2021-04-26 12:44] VITALS: BP 98/44; PULSE 74; RESP 20; O2SAT 94
[2021-04-26 15:11] LABS: CT PCR NOT DETECTED (Not Detect.); NG PCR NOT DETECTED (Not Detect.)
[2021-04-26] MEDS: Cyclobenzaprine HCl 10 MG TABLET PO (15:42)
[2021-04-26] MEDS: Lidocaine 4 % Patch ADH..PATCH 1 PATCH TRANSDERMA (15:42)
--- NOTE | 2021-04-26 15:46 | P.CONOB_ITS ---
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 The patient has been amenorrhea on daily Provera 10 mg p.o. q.d. over the last 4 years, she woke up this morning having some vaginal bleeding, the bleeding is mild with no associated pelvic pain , vaginal discharge, fever or chills, nausea or vomiting. The patient is not sure if she missed few Provera pills over the last few days. 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 - Review of Systems Review of Systems ROS Unobtainable: All systems reviewed & are unremarkable except as noted in HPI and below Cardiovascular: Denies Palpatations, Loss of consciousness or Chest pain Respiratory: Denies Cough, Wheezing or Shortness of breath Musculoskeletal: Denies Low back pain Gastrointestinal: Denies Heartburn, Constipation, Diarrhea, Nausea or Vomiting Genitourinary: Denies Pain with urination, Burning with urination or Urinary frequency Neurological: Denies Migranes Psychological: Denies Depression OB PMFSH Past Medical History Medical History Anxiety Asthma BMI 50.0-59.9, adult Cardiomyopathy CHF (congestive heart failure) Depression Diabetes mellitus, type 2 Diabetes type 2, uncontrolled DVT (deep vein thrombosis) in Essential hypertension Gallstones Hyperlipidemia LDL goal <70 Hypertension Hypothyroidism Irritable bowel Mood disorder Obesity due to excess calories ROGERIO (obstructive sleep apnea) Pancreatitis Proteinuria PTSD (post-traumatic stress disorder) Pulmonary embolism Family History Family History Paternal Grandmother Diabetes Surgical History Surgical History History of dental surgery History of open heart surgery Hx of hernia repair Hx of removal of cyst Social History Social History Household Members: None Housing: Apartment Housing Other:: 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 Do you presently have visiting nurse or other home services: Yes Alcohol intake: current Alcohol intake frequency: a few times a month Patient Tobacco Use Status: Former Tobacco user Tobacco use type: Cigarette Smoked in Last 30 Days: No e-Cigarette/Vaping Use: Never Used Second Hand Smoke Exposure: Yes Use of substances other than those prescribed or required for medical reasons: Yes Substance Use Type: Marijuana Advance Directives: No Advance Directives Information Provided: No service: No Sexual orientation: Lesbian/Good/Homosexual Meds Allergies Allergy/AdvReac Type Severity Reaction Status Date / Time Penicillins Allergy Intermediate HIVES Verified 03/12/21 13:46 [PENICILLINS] egg [Egg] Allergy Mild SWELLING Verified 03/12/21 13:46 aspirin Allergy Unknown Unknown Verified 03/12/21 13:46 bee pollen [BEE Allergy Unknown UNKNOWN Verified 03/12/21 13:46 STINGS] lactose [LACTOSE] Allergy Unknown UNKNOWN Verified 03/12/21 13:46 latex [LATEX] Allergy Unknown HIVES Verified 03/12/21 13:46 oxycodone Allergy Unknown Unknown Verified 03/12/21 13:46 peanut [PEANUT] Allergy Unknown UNKNOWN Verified 03/12/21 13:46 penicillin V Allergy Unknown Unknown Verified 03/12/21 13:46 kiwi Allergy Anaphylaxis Verified 03/12/21 13:46 eggs,bees,latex,pe Allergy Unknown Unknown Uncoded 03/12/21 13:46 anuts medical tape Allergy Unknown Unknown Uncoded 03/12/21 13:46 TAPE,PLASTIC Allergy Unknown RASH Uncoded 03/12/21 13:46 Home Medications Medication Instructions Recorded Confirmed Last Taken Type levothyroxine 75 75 mcg PO DAILY 04/07/20 03/24/21 11/10/20 History mcg tablet clonazepam 1 mg 1 tab PO BEDTIME 03/24/21 03/25/21 Unknown History tablet PRN dicyclomine 10 mg 1 cap PO Q6H 03/24/21 03/25/21 Unknown History capsule dulaglutide 4.5 4.5 mg SUBCUT 03/24/21 03/25/21 Unknown History mg/0.5 mL QWEEK subcutaneous pen injector ([facility]) EMPLOYMENT OFFICE CLERK Physical Exam Vitals Vital signs: Temp Pulse Resp BP Pulse Ox 98.7 F 74 20 98/44 L 94 04/26/21 09:27 04/26/21 12:44 04/26/21 04/26/21 04/26/21 12:44 12:44 12:44 BMI result Verdana 4 Body Mass Index Verdana 4 40.3 Verdana 4 Verdana 4 Constitutional General Appearance: Healthy appearing, Well-nourished and Well-developed Psychiatric Mood and Affect: active and alert, normal mood and normal affect Skin Appearance: No rashes and No lesions Lungs Respiratory Effort: No intercostal retractions Auscultation: Clear to auscultation Cardiovascular Auscultation: RRR Abdomen Auscultation/Inspection/Palpation: Normal bowel sounds, Soft, Non-distended, No tenderness and CVA tenderness (Left) Female Genitalia (Pelvic) Exam: Declined by Patient EMPLOYMENT OFFICE CLERK - Results Labs CBC & Chem 7: 04/26/21 09:38 04/26/21 09:38 Labs: Short CBC 04/26/21 Range/Units 09:38 WBC 8.1 (4.8-10.8) X10*3/uL Hgb 12.1 (12.0-16.0) g/dl Hct 40.8 (37.0-47.0) % Plt Count 308 (160-400) X10*3/uL BMP 04/26/21 09:38 Sodium 141 Potassium 3.9 Chloride 106 Carbon Dioxide 26 BUN 11 Creatinine 0.85 Calcium 9.5 D Liver Function 04/26/21 Range/Units 09:38 Total Bilirubin 0.6 (0.0-1.0) mg/dL AST 17 (5-31) U/L ALT 21 (0-31) U/L Alkaline Phosphatase 78 D (39-117) U/L Albumin 3.5 (3.5-5.0) g/dL Urine 04/26/21 Range/Units 09:48 Urine Color YELLOW Urine Appearance HAZY Urine pH 5.5 (5.0-8.0) Ur Specific [place] 1.025 (1.005-1.025) Urine Protein TRACE (NEG-TRACE) MG/DL Urine Glucose (UA) NEG (NEG) MG/DL Imaging US - abdomen: Radiologist's impression: ITS Impressions Abdomen/Pelvis CT 04/26/21 10:27 IMPRESSION: No acute intra-abdominal process. Groundglass opacity seen in bilateral abdominal wall question edema or contusion. Minimal right abdominal wall subcutaneous thickening with likely calcification question contusion. Correlate with clinical examination. Fleischner guidelines were followed. Doppler Study Ultrasound 04/26/21 11:59 IMPRESSION: -Normal thickness endometrial stripe. -Suspected 1.4 cm uterine fibroid. -Fluid present within the cervical canal. Clinical correlation recommended. -Unremarkable right ovary. -The left ovary is normal in appearance although arterial and venous waveforms were not clearly identified. This however was felt to be secondary to patient body habitus and positioning of the left ovary. Ovarian torsion however cannot be excluded on the basis of this examination. Clinical correlation is recommended. EMPLOYMENT OFFICE CLERK consultation likely warranted. Pelvic/Transvag US 04/26/21 11:59 IMPRESSION: -Normal thickness endometrial stripe. -Suspected 1.4 cm uterine fibroid. -Fluid present within the cervical canal. Clinical correlation recommended. -Unremarkable right ovary. -The left ovary is normal in appearance although arterial and venous waveforms were not clearly identified. This however was felt to be secondary to patient body habitus and positioning of the left ovary. Ovarian torsion however cannot be excluded on the basis of this examination. Clinical correlation is recommended. EMPLOYMENT OFFICE CLERK consultation likely warranted. Assessment and Plan (1) Vaginal bleeding: Status: Acute The patient declined pelvic exam, therefore I was unable to assess the amount of uterine bleeding nor form a pelvic exam rule out other causes including cervical and vaginal pathologies; Yvette Gramajo, OBED performed a pelvic exam and reported no evidence of pathologies, the vaginal bleeding is mild with no active bleeding or blood clots. HCG is negative, pelvic ultrasound essentially negative, small myoma, no philippe dence of left adnexal masses, therefore ovarian torsion is very unlikely within normal abdominal exam and no pelvic pain. Discussed with the patient differential diagnosis of vaginal bleeding including but not limited to: Cervical or vaginal pathology, breakthrough bleeding, endometrial pathology endometrial hyperplasia or cancer, therefore recommended close outpatient follow-up with her naturopathic physician for evaluation including endometrial biopsy to rule out endometrial pathology including hyperplasia and cancer. Discussed with the patient that the use of medroxyprogesterone acetate with patients with history of VTE/PE might increase the risk of recurrence of thrombosis versus levonorgestrel IUD does not increase the risk of thromboembolism. Although Coumadin might reduce that risk, I recommended to the patient to consider switching to levonorgestrel IUD instead. All questions answered, the patient understanding and stated that she will discussed with her naturopathic physician. Instructions given to patient to call come back to the emergency room in case of heavy vaginal bleeding (2) Flank pain: Status: Acute Will defer the management of flank pain to the emergency room providers.
[2021-04-26 15:51] VITALS: BP 100/57; PULSE 81; RESP 16; TEMP 36.6; O2SAT 93
[2021-04-27 09:19] LABS: BV Int Neg Control Negative (Negative); BV Int Pos Control Positive (Positive)
== END 2021-04-26 16:31 | disposition home or self-care (01) ==
PROVIDERS: Nurse Practitioner Family; Physician Assistant Medical; Emergency Provider Emergency Medicine; PCP Internal Medicine
DX: N93.9 Abnormal uterine and vaginal bleeding, unspecified (principal); R10.2 Pelvic and perineal pain; R10.9 Unspecified abdominal pain; M54.50 Low back pain, unspecified; I10 Essential (primary) hypertension; E11.9 Type 2 diabetes mellitus without complications; Z87.891 Personal history of nicotine dependence; Z79.01 Long term (current) use of anticoagulants; Z86.718 Personal history of other venous thrombosis and embolism; Z79.899 Other long term (current) drug therapy
CPT/HCPCS: 36415; 74176; 76830; 76856; 80053; 81001; 83690; 83735; 84702; 85025; 85610; 87480; 87491; 87510; 87591; 87660; 93975; 99284

== ENCOUNTER 2021-05-26 16:51 | Inpatient (IN) | payer OTHER, SELFPAY ==
[2021-05-26 17:07] VITALS: BP 140/63; PULSE 120; RESP 18; TEMP 36.7; O2SAT 99; BMI 53.2
--- NOTE | 2021-05-26 17:22 | ED_ITS ---
HPI - Psych General Chief Complaint: Psychiatric Symptoms Stated Complaint: CRISIS Time Seen by Provider: 05/26/21 17:02 Source: patient Mode of arrival: EMS Limitations: no limitations History of Present Illness HPI Narrative: 46-year-old female who presents emergency department for evaluation of suicidal ideation. The patient states that she has borderline personality disorder and has different personalities. She states that her personality name was telling her to hurt herself. This person out I told her that people do not like her and that she should end her life. The patient states that she was on a zoom call with her therapist who called a sawmill worker to evaluate the patient. The patient states that when the sawmill worker showed up told her to kill herself so she grabbed a knife and wanted to cut her wrists. An ambulance was called and the patient was then transferred to the emergency department. The patient told me that she is going through a lot right now and there was not a specific trigger to her suicidal ideation. She states that she has been in her usual state of health. He states that in March, her pharmacy did not refill her control pills which she takes for vaginal bleeding. She states because of this she has been having vaginal bleeding which is uncontrolled however she just restarted her control pills. She also states that she has had a blood cl ot to her lungs in the past and is on Coumadin and her recent INR was elevated (possibly 3.9). She states she has been compliant with her medications otherwise. Related Data Home Medications Medication Instructions Recorded Confirmed clonazepam 1 mg tablet 1 tab PO BEDTIME PRN 03/24/21 05/26/21 dulaglutide 4.5 mg/0.5 mL 4.5 mg SUBCUT QWEEK 03/24/21 05/26/21 subcutaneous pen injector (Trulicity) furosemide 20 mg tablet 1 tab PO DAILY 05/26/21 05/26/21 insulin lispro 100 unit/mL 10 unit SUBCUT BID 05/26/21 05/26/21 subcutaneous pen (Humalog KwikPen (U-100) Insulin) levothyroxine 75 mcg tablet 1 tab PO QAM 05/26/21 05/26/21 lisinopril 5 mg tablet 1 tab PO DAILY 05/26/21 05/26/21 loratadine 10 mg tablet 1 tab PO DAILY 05/26/21 05/26/21 metformin 1,000 mg tablet 1 tab PO BID 05/26/21 05/26/21 metoprolol succinate 50 mg 1 tab PO DAILY 05/26/21 05/26/21 tablet,extended release 24 hr omeprazole 20 mg capsule,delayed 1 cap PO DAILY 05/26/21 05/26/21 release trazodone 50 mg tablet 1 tab PO BEDTIME PRN 05/26/21 05/26/21 warfarin 5 mg tablet 1 - 3 tab PO DAILY 05/26/21 05/26/21 Previous Rx's Medication Instructions Recorded albuterol sulfate 2.5 mg (3 mL) INHALATION QID PRN 11/17/20 #3 ml sertraline 50 mg tablet 150 mg PO DAILY #30 tab 11/17/20 atorvastatin 40 mg tablet 40 mg PO DAILY #30 tab 03/30/21 Allergies Allergy/AdvReac Type Severity Reaction Status Date / Time Penicillins [PENICILLINS] Allergy Intermediate HIVES Verified 03/12/21 13:46 egg [Egg] Allergy Mild SWELLING Verified 03/12/21 13:46 aspirin Allergy Unknown Unknown Verified 03/12/21 13:46 bee pollen [BEE STINGS] Allergy Unknown UNKNOWN Verified 03/12/21 13:46 lactose [LACTOSE] Allergy Unknown UNKNOWN Verified 03/12/21 13:46 latex [LATEX] Allergy Unknown HIVES Verified 03/12/21 13:46 oxycodone Allergy Unknown Unknown Verified 03/12/21 13:46 peanut [PEANUT] Allergy Unknown UNKNOWN Verified 03/12/21 13:46 penicillin V Allergy Unknown Unknown Verified 03/12/21 13:46 kiwi Allergy Anaphylaxis Verified 03/12/21 13:46 eggs,bees,latex,peanuts Allergy Unknown Unknown Uncoded 03/12/21 13:46 medical tape Allergy Unknown Unknown Uncoded 03/12/21 13:46 TAPE,PLASTIC Allergy Unknown RASH Uncoded 03/12/21 13:46 Review of Systems Review of Systems: Yes all other systems are reviewed and are negative PMFSH Past Medical History Medical History Anxiety Asthma BMI 50.0-59.9, adult Cardiomyopathy CHF (congestive heart failure) Depression Diabetes mellitus, type 2 Diabetes type 2, uncontrolled DVT (deep vein thrombosis) in Essential hypertension Gallstones Hyperlipidemia LDL goal <70 Hypertension Hypothyroidism Irritable bowel Mood disorder Obesity due to excess calories ROGERIO (obstructive sleep apnea) Pancreatitis Proteinuria PTSD (post-traumatic stress disorder) Pulmonary embolism Surgical History History of dental surgery History of open heart surgery Hx of hernia repair Hx of removal of cyst Family History Family History Paternal Grandmother Diabetes Social History Social History Household Members: None Housing: Apartment Housing Other:: Has DENITRATOR OPERATOR twice a day. Do you presently have visiting nurse or other home services: Yes Alcohol intake: current Alcohol intake frequency: a few times a month Patient Tobacco Use Status: Former Tobacco user Tobacco use type: Cigarette e-Cigarette/Vaping Use: Never Used Second Hand Smoke Exposure: Yes Substance Use Type: Marijuana Advance Directives: No Advance Directives Information Provided: No service: No Sexual orientation: Lesbian/Good/Homosexual Physical Exam Vital Signs: Vital Signs: Last Vital Signs Temp 98.0 F 05/26/21 17:07 Pulse 120 H 05/26/21 17:07 Resp 18 05/26/21 17:07 BP 140/63 H 05/26/21 17:07 Pulse Ox 99 05/26/21 17:07 BMI result Body Mass Index 53.2 Const: General: cooperative and no acute distress Orientation/consciousness: oriented to person and oriented to place Limitations: no limitations HENMT: Head: Yes normal to inspection, Yes normocephalic and Yes atraumatic Ears: external ears normal General nose exam: Normal external nose present Face and sinus: Yes normal facial exam Mouth: Normal oral and palatal mucosa present Throat: Yes posterior oropharynx normal Eyes: General: appearance normal, both eyes and all related structures Pupils: Equal, round and reactive pupils present Neck: Neck: Yes normal visual inspection, Yes no lymphadenopathy, Yes trachea midline and Yes supple Chest: Chest palpation & inspection: normal inspection of the chest and normal palpation of entire chest wall Resp: Effort & Inspection: normal respiratory effort and able to speak in complete sentences Auscultation: clear to auscultation bilaterally Cardio: Rate: regular rate Rhythm: regular rhythm Heart sounds: S1 normal heart sound present, S2 normal heart sound present and no murmurs GI: Inspection: Yes normal to inspection Palpation (GI): Soft to palpation, nontender and no guarding Auscultation: normal bowel sounds : General: Yes no CVA tenderness Back/Spine/Pelvis: Back: no CVA tenderness Skin: General skin exam: no rashes or lesions noted Neuro: General: oriented to person and oriented to place Cranial nerves: Yes CN's II-XII intact bilaterally and Yes Equal, round and reactive pupils present Cognition (Neuro): normal cognition Motor exam (neuro): 5/5 motor strength present throughout Extrem: General: Yes normal to inspection Psych: Appearance: grossly normal Speech and movement: Normal speech and movement present Affect: normal affect Attitude: cooperative Thought process: Normal thought process present Thought content: Suicidality present Course Course Course Narrative: 46-year-old female with borderline personality disorder who states she has multiple personalities who presents with suicidal ideation. Patient states that her personality name has been staying negative things to her and told her to kill herself. Apparently she grabbed a knife while she was being evaluated by crisis and threatened to cut her wrist. Therefore, she was sent to the emergency department by ambulance for evaluation. Vital signs did reveal an elevated blood pressure of 140/63 and an elevated pulse 120. Patient's exam was otherwise unremarkable. I did order laboratory evaluation and an EKG. 1916: Patient refused the EKG, we will attempt to get her to agree to this test. Laboratory evaluation did reveal an elevated glucose of 475. The patient did eat food and did not receive any insulin prior to her meal. In reviewing the medications listed she does take insulin lispro and she was ordered to get 18 units subcutaneously. Also encouraged her drink fluid to help bring down her glucose. Patient's urine tox screen, and alcohol were below detectable limits. COVID-19 was negative. Salicylates and acetaminophen will below detectable limits. The patient is medically cleared to be evaluated by crisis. 2139: The patient was evaluated by crisis and was placed on a Section 12 and will be a bed search. I did order the patient's reconciled medications. The patient will be placed in physician observation. 2139: Physician observation started at 2139. Patient placed in physician observation because the patient has suicidal ideation will need to be closely watched until an appropriate psych inpatient bed can be found.. At the time observation was started the patient's vitals were stable, patient is alert and oriented she is cooperative, Neuro: nonfocal, CV RRR, Lungs clear. 0201: Physician observation continued: At the end of my shift, the patient's care was turned over to my colleague, Dr. Ryan. The patient will point of care glucose prior to meals and at bedtime and a repeat PT INR in the morning. MDM - Psych Lab Data Result diagrams: 05/26/21 18:20 05/26/21 18:19 Labs: Lab Results 05/26/21 05/26/21 05/26/21 Range/Units 18:03 18:04 18:04 WBC (4.8-10.8) X10*3/uL RBC (4.20-5.50) X10*6/uL Hgb (12.0-16.0) g/dl Hct (37.0-47.0) % MCV (80.0-98.0) fL MCH (27.0-33.0) pg MCHC (31.0-35.0) g/dl RDW (11.0-16.0) % Plt Count (160-400) X10*3/uL MPV (9.4-12.3) fL Immature Gran % (Auto) (0.0-0.4) % Neut % (Auto) (45-73) % Lymph % (Auto) (20-40) % Campbell % (Auto) (2-11) % Eos % (Auto) (0-4) % Baso % (Auto) (0-2) % Lymph # (Auto) (1.2-4.9) X10*3/uL Campbell # (Auto) (0.1-1.2) X10*3/uL Eos # (Auto) (0.0-0.4) X10*3/uL Baso # (Auto) (0.0-0.2) X10*3/uL Abs Immat Gran (auto) (0.00-0.03) X10*3/uL Absolute Neuts (auto) (2.0-8.3) x10*3/uL Absolute Nucleated RBC (0.0-0.012) X10*3/uL Nucleated RBC % (auto) (0.0-0.2) /100WBC PT (9.9-13.0) SEC INR (0.9-1.1) APTT (24.1-38.0) SEC Sodium (135-145) mmol/L Potassium (3.3-5.1) mmol/L Chloride (96-108) mmol/L Carbon Dioxide (22-29) mmol/L Anion Gap (12-20) BUN (9-16) mg/dL Creatinine (0.5-1.4) mg/dL Estim Creat Clear Calc Estimated GFR POC Glucose (60-115) mg/dL Random Glucose (60-115) mg/dL Calcium (8.4-10.2) mg/dL Total Bilirubin (0.0-1.0) mg/dL AST (5-31) U/L ALT (0-31) U/L Alkaline Phosphatase (39-117) U/L Total Protein (6.5-8.0) g/dL Albumin (3.5-5.0) g/dL Urine Test NEGATIVE (NEGATIVE) Salicylates (15-30) mg/dL Urine Opiates Screen (Not Detect) Urine Fentanyl Screen (Not Detect) Acetaminophen (<30) mcg/mL Ur Barbiturates Screen (Not Detect) Ur Phencyclidine Scrn (Not Detect) Ur Amphetamines Screen (Not Detect) U Benzodiazepines Scrn (Not Detect) Urine Cocaine Screen (Not Detect) U Marijuana (THC) Screen (Not Detect) Ethyl Alcohol < 10 mg/dL COVID-19 (JERICA) Negative (Negative) COVID-19 Clin Com See Note 05/26/21 05/26/21 05/26/21 Range/Units 18:04 18:19 18:19 WBC (4.8-10.8) X10*3/uL RBC (4.20-5.50) X10*6/uL Hgb (12.0-16.0) g/dl Hct (37.0-47.0) % MCV (80.0-98.0) fL MCH (27.0-33.0) pg MCHC (31.0-35.0) g/dl RDW (11.0-16.0) % Plt Count (160-400) X10*3/uL MPV (9.4-12.3) fL Immature Gran % (Auto) (0.0-0.4) % Neut % (Auto) (45-73) % Lymph % (Auto) (20-40) % Campbell % (Auto) (2-11) % Eos % (Auto) (0-4) % Baso % (Auto) (0-2) % Lymph # (Auto) (1.2-4.9) X10*3/uL Campbell # (Auto) (0.1-1.2) X10*3/uL Eos # (Auto) (0.0-0.4) X10*3/uL Baso # (Auto) (0.0-0.2) X10*3/uL Abs Immat Gran (auto) (0.00-0.03) X10*3/uL Absolute Neuts (auto) (2.0-8.3) x10*3/uL Absolute Nucleated RBC (0.0-0.012) X10*3/uL Nucleated RBC % (auto) (0.0-0.2) /100WBC PT 36.1 H (9.9-13.0) SEC INR 3.1 H (0.9-1.1) APTT 59.1 H (24.1-38.0) SEC Sodium 137 (135-145) mmol/L Potassium 4.3 (3.3-5.1) mmol/L Chloride 99 (96-108) mmol/L Carbon Dioxide 26 (22-29) mmol/L Anion Gap 16 (12-20) BUN 14 (9-16) mg/dL Creatinine 1.39 (0.5-1.4) mg/dL Estim Creat Clear Calc 77.8 Estimated GFR 41 POC Glucose (60-115) mg/dL Random Glucose 473 H* D (60-115) mg/dL Calcium 9.2 (8.4-10.2) mg/dL Total Bilirubin 0.9 (0.0-1.0) mg/dL AST 15 (5-31) U/L ALT 18 (0-31) U/L Alkaline Phosphatase 93 (39-117) U/L Total Protein 7.6 (6.5-8.0) g/dL Albumin 4.1 (3.5-5.0) g/dL Urine Test (NEGATIVE) Salicylates < 5.0 L (15-30) mg/dL Urine Opiates Screen Not Detected (Not Detect) Urine Fentanyl Screen Not Detected (Not Detect) Acetaminophen < 1 (<30) mcg/mL Ur Barbiturates Screen Not Detected (Not Detect) Ur Phencyclidine Scrn Not Detected (Not Detect) Ur Amphetamines Screen Not Detected (Not Detect) U Benzodiazepines Scrn Not Detected (Not Detect) Urine Cocaine Screen Not Detected (Not Detect) U Marijuana (THC) Screen Not Detected (Not Detect) Ethyl Alcohol mg/dL COVID-19 ([facility]ERICA) (Negative) COVID-19 Clin Com 05/26/21 05/26/21 05/26/21 Range/Units 18:20 21:56 23:31 WBC 12.1 H (4.8-10.8) X10*3/uL RBC 5.33 (4.20-5.50) X10*6/uL Hgb 12.9 (12.0-16.0) g/dl Hct 43.1 (37.0-47.0) % MCV 80.9 (80.0-98.0) fL MCH 24.2 L (27.0-33.0) pg MCHC 29.9 L (31.0-35.0) g/dl RDW 19.9 H (11.0-16.0) % Plt Count 340 (160-400) X10*3/uL MPV 10.8 (9.4-12.3) fL Immature Gran % (Auto) 0.5 H (0.0-0.4) % Neut % (Auto) 72.4 (45-73) % Lymph % (Auto) 19.5 L (20-40) % Campbell % (Auto) 5.5 (2-11) % Eos % (Auto) 1.6 (0-4) % Baso % (Auto) 0.5 (0-2) % Lymph # (Auto) 2.4 (1.2-4.9) X10*3/uL Campbell # (Auto) 0.7 (0.1-1.2) X10*3/uL Eos # (Auto) 0.2 (0.0-0.4) X10*3/uL Baso # (Auto) 0.1 (0.0-0.2) X10*3/uL Abs Immat Gran (auto) 0.06 H (0.00-0.03) X10*3/uL Absolute Neuts (auto) 8.7 H (2.0-8.3) x10*3/uL Absolute Nucleated RBC 0.080 H (0.0-0.012) X10*3/uL Nucleated RBC % (auto) 0.7 H (0.0-0.2) /100WBC PT (9.9-13.0) SEC INR (0.9-1.1) APTT (24.1-38.0) SEC Sodium (135-145) mmol/L Potassium (3.3-5.1) mmol/L Chloride (96-108) mmol/L Carbon Dioxide (22-29) mmol/L Anion Gap (12-20) BUN (9-16) mg/dL Creatinine (0.5-1.4) mg/dL Estim Creat Clear Calc Estimated GFR POC Glucose 362 H* 375 H* (60-115) mg/dL Random Glucose (60-115) mg/dL Calcium (8.4-10.2) mg/dL Total Bilirubin (0.0-1.0) mg/dL AST (5-31) U/L ALT (0-31) U/L Alkaline Phosphatase (39-117) U/L Total Protein (6.5-8.0) g/dL Albumin (3.5-5.0) g/dL Urine Test (NEGATIVE) Salicylates (15-30) mg/dL Urine Opiates Screen (Not Detect) Urine Fentanyl Screen (Not Detect) Acetaminophen (<30) mcg/mL Ur Barbiturates Screen (Not Detect) Ur Phencyclidine Scrn (Not Detect) Ur Amphetamines Screen (Not Detect) U Benzodiazepines Scrn (Not Detect) Urine Cocaine Screen (Not Detect) U Marijuana (THC) Screen (Not Detect) Ethyl Alcohol mg/dL COVID-19 ([facility]ERICA) (Negative) COVID-19 Clin Com 05/27/21 Range/Units 00:02 WBC (4.8-10.8) X10*3/uL RBC (4.20-5.50) X10*6/uL Hgb (12.0-16.0) g/dl Hct (37.0-47.0) % MCV (80.0-98.0) fL MCH (27.0-33.0) pg MCHC (31.0-35.0) g/dl RDW (11.0-16.0) % Plt Count (160-400) X10*3/uL MPV (9.4-12.3) fL Immature Gran % (Auto) (0.0-0.4) % Neut % (Auto) (45-73) % Lymph % (Auto) (20-40) % Campbell % (Auto) (2-11) % Eos % (Auto) (0-4) % Baso % (Auto) (0-2) % Lymph # (Auto) (1.2-4.9) X10*3/uL Campbell # (Auto) (0.1-1.2) X10*3/uL Eos # (Auto) (0.0-0.4) X10*3/uL Baso # (Auto) (0.0-0.2) X10*3/uL Abs Immat Gran (auto) (0.00-0.03) X10*3/uL Absolute Neuts (auto) (2.0-8.3) x10*3/uL Absolute Nucleated RBC (0.0-0.012) X10*3/uL Nucleated RBC % (auto) (0.0-0.2) /100WBC PT (9.9-13.0) SEC INR (0.9-1.1) APTT (24.1-38.0) SEC Sodium (135-145) mmol/L Potassium (3.3-5.1) mmol/L Chloride (96-108) mmol/L Carbon Dioxide (22-29) mmol/L Anion Gap (12-20) BUN (9-16) mg/dL Creatinine (0.5-1.4) mg/dL Estim Creat Clear Calc Estimated GFR POC Glucose 287 H (60-115) mg/dL Random Glucose (60-115) mg/dL Calcium (8.4-10.2) mg/dL Total Bilirubin (0.0-1.0) mg/dL AST (5-31) U/L ALT (0-31) U/L Alkaline Phosphatase (39-117) U/L Total Protein (6.5-8.0) g/dL Albumin (3.5-5.0) g/dL Urine Test (NEGATIVE) Salicylates (15-30) mg/dL Urine Opiates Screen (Not Detect) Urine Fentanyl Screen (Not Detect) Acetaminophen (<30) mcg/mL Ur Barbiturates Screen (Not Detect) Ur Phencyclidine Scrn (Not Detect) Ur Amphetamines Screen (Not Detect) U Benzodiazepines Scrn (Not Detect) Urine Cocaine Screen (Not Detect) U Marijuana (THC) Screen (Not Detect) Ethyl Alcohol mg/dL COVID-19 ([facility]ERICA) (Negative) COVID-19 Clin Com ECG Data Attestation: I personally reviewed and interpreted this ECG as follows: Interpretation: 1953: Sinus tachycardia with a rate of 114, normal GA interval, QRS duration and QTC interval, no ST segment elevation, no ST segment depression, poor R-wave progression V1 through V3, no PACs, no PVCs. Compared to EKG dated 11/10/2020, the tachycardia is new, the poor R-wave progression is old. Discharge Plan Discharge Clinical Impression: Suicidal ideations, Acute hyperglycemia Patient Disposition: Still a Patient Prescriptions: No Action atorvastatin 40 mg tablet 40 mg PO DAILY Qty: 30 6RF albuterol sulfate 2.5 mg /3 mL (0.083 %) Solution For Nebulization 2.5 mg inhalation QID PRN (Reason: Allergic Reaction) Qty: 3 0RF sertraline 50 mg Tablet 150 mg PO DAILY Qty: 30 0RF clonazepam 1 mg tablet 1 tab PO BEDTIME PRN (Reason: Insomnia) 0RF Trulicity 4.5 mg/0.5 mL pen injector 4.5 mg subcut QWEEK 0RF furosemide 20 mg tablet 1 tab PO DAILY 0RF insulin lispro [Humalog KwikPen Insulin] 100 unit/mL insulin pen 10 unit subcut BID 0RF warfarin 5 mg tablet 1 - 3 tab PO DAILY 0RF lisinopril 5 mg tablet 1 tab PO DAILY 0RF levothyroxine 75 mcg tablet 1 tab PO QAM 0RF loratadine 10 mg tablet 1 tab PO DAILY 0RF metoprolol succinate 50 mg tablet extended release 24 hr 1 tab PO DAILY 0RF omeprazole 20 mg capsule,delayed release(DR/EC) 1 cap PO DAILY 0RF metformin 1,000 mg tablet 1 tab PO BID 0RF trazodone 50 mg tablet 1 tab PO BEDTIME PRN (Reason: insomnia) 0RF
--- NOTE | 2021-05-26 17:32 | ECG_ITS ---
Test Reason : MEDCLEARANCE Blood Pressure : / mmHG Vent. Rate : 114 BPM Atrial Rate : 114 BPM P-R Int : 176 ms QRS Dur : 080 ms QT Int : 332 ms P-R-T Axes : 060 110 104 degrees QTc Int : 457 ms Sinus tachycardia Left posterior fascicular block Cannot rule out Anterior infarct , age undetermined Abnormal ECG When compared with ECG of 10-NOV-2020 16:52, No significant change was found Referred By: Don Floyd Electronically Signed By:Tr Cai
[2021-05-26 18:15] LABS: UPreg QC Valid YES; Urine Pregnancy NEGATIVE (NEGATIVE)
[2021-05-26 18:24] LABS: MANUAL DIFF FLAG NO
[2021-05-26 18:31] LABS: INTERNATIONAL NORM RATIO 3.1 (0.9-1.1); Prothrombin Time 36.1 SEC (9.9-13.0)
[2021-05-26 18:32] LABS: Ethanol < 10 mg/dL
[2021-05-26 18:34] LABS: Partial Thromboplastin Time 59.1 SEC (24.1-38.0)
[2021-05-26 18:35] LABS: COVID-19 Test Negative (Negative)
[2021-05-26 18:36] LABS: Amphetamine Screen Urine Not Detected (Not Detect); Barbiturates, Urine Not Detected (Not Detect); Benzodiazepines Screen Urine Not Detected (Not Detect); Cannabinoid Screen Urine Not Detected (Not Detect); Cocaine Screen Urine Not Detected (Not Detect); Fentanyl, urine Not Detected (Not Detect); Opiate Screen Urine Not Detected (Not Detect); Phencyclidine Screen Urine Not Detected (Not Detect)
[2021-05-26 18:40] LABS: Basophils Absolute Auto 0.1 X10*3/uL (0.0-0.2); Basophils Percent Auto 0.5 % (0-2); Eosinophils Absolute Auto 0.2 X10*3/uL (0.0-0.4); Eosinophils Percent Auto 1.6 % (0-4); Hematocrit 43.1 % (37.0-47.0); Hemoglobin 12.9 g/dl (12.0-16.0); Imm Gran Abs Auto 0.06 X10*3/uL (0.00-0.03); Imm Gran Pct Auto 0.5 % (0.0-0.4); Lymphocytes Absolute Auto 2.4 X10*3/uL (1.2-4.9); Lymphocytes Percent Auto 19.5 % (20-40); Mean Corpuscular HGB Conc 29.9 g/dl (31.0-35.0); Mean Corpuscular Hemoglobin 24.2 pg (27.0-33.0); Mean Corpuscular Volume 80.9 fL (80.0-98.0); Mean Platelet Volume 10.8 fL (9.4-12.3); Monocytes Absolute Auto 0.7 X10*3/uL (0.1-1.2); Monocytes Percent Auto 5.5 % (2-11); NRBC Pct Auto 0.7 /100WBC (0.0-0.2); Neutrophils Absolute Auto 8.7 x10*3/uL (2.0-8.3); Neutrophils Percent Auto 72.4 % (45-73); Platelet Count 340 X10*3/uL (160-400); Red Blood Count 5.33 X10*6/uL (4.20-5.50); Red Cell Distribution Width 19.9 % (11.0-16.0); White Blood Count 12.1 X10*3/uL (4.8-10.8)
[2021-05-26 18:54] LABS: Acetaminophen LAB < 1 mcg/mL (<30); Alanine Aminotransferase 18 U/L (0-31); Albumin Level 4.1 g/dL (3.5-5.0); Alkaline Phosphatase 93 U/L (39-117); Anion Gap 16 (12-20); Aspartate Amino Transferase 15 U/L (5-31); Bilirubin Total 0.9 mg/dL (0.0-1.0); Blood Urea Nitrogen 14 mg/dL (9-16); Calcium 9.2 mg/dL (8.4-10.2); Carbon Dioxide 26 mmol/L (22-29); Chloride 99 mmol/L (96-108); Creatinine Clr Calc Pharmacy 77.8; Estimated Glomerular Filt Rate 41; Glucose Random 473 mg/dL (60-115); Potassium 4.3 mmol/L (3.3-5.1); Salicylate < 5.0 mg/dL (15-30); Sodium 137 mmol/L (135-145); Total Protein 7.6 g/dL (6.5-8.0)
[2021-05-26] MEDS: Insulin Lispro 100 UNIT/ML 3 ML VIAL 18 UNIT SUBCUT (19:20)
[2021-05-26 22:00] LABS: Glucose, Whole Blood 362 mg/dL (60-115)
[2021-05-26] MEDS: Insulin Lispro 100 UNIT/ML 3 ML VIAL 10 UNIT SUBCUT (22:36)
[2021-05-26] MEDS: Warfarin Sodium 5 MG TABLET PO (22:41)
[2021-05-26] MEDS: clonazePAM 1 MG TABLET PO (22:41)
[2021-05-26] MEDS: traZODone HCL 50 MG TABLET PO (22:41)
[2021-05-26] MEDS: metFORMIN HCl 1,000 MG TABLET 1000 MG PO (22:42)
[2021-05-26 23:41] LABS: Glucose, Whole Blood 375 mg/dL (60-115)
[2021-05-27 00:07] LABS: Glucose, Whole Blood 287 mg/dL (60-115)
[2021-05-27] MEDS: Levothyroxine Sodium 75 MCG TABLET PO (06:30)
[2021-05-27] MEDS: Omeprazole 20 MG CAPSULE.DR PO (06:30)
[2021-05-27 06:34] LABS: Glucose, Whole Blood 348 mg/dL (60-115)
[2021-05-27 06:36] VITALS: BP 124/69; PULSE 82; RESP 18; TEMP 36.7; O2SAT 87
--- NOTE | 2021-05-27 06:36 | PC.NURSE ---
Patient slept through the night, no distress observed/reported, medication compliant, behavior appropriate, POC was 348 @ 0629, disposition per [facility] is section 12 inpatient bed search, will continue to monitor.
--- NOTE | 2021-05-27 07:29 | PC.NURSE ---
patient appears to remain asleep presently respirations are even and unlabored patient appears in no distress
[2021-05-27] MEDS: Insulin Lispro 100 UNIT/ML 3 ML VIAL 10 UNIT SUBCUT (09:39)
[2021-05-27] MEDS: metFORMIN HCl 1,000 MG TABLET 1000 MG PO ×2 (10:45→17:16)
[2021-05-27] MEDS: Furosemide 20 MG TABLET PO (10:45)
[2021-05-27] MEDS: Metoprolol Succinate ER 50 MG TAB.ER.24H PO (10:45)
[2021-05-27] MEDS: Atorvastatin Calcium 40 MG TABLET PO (10:45)
[2021-05-27] MEDS: Loratadine 10 MG TABLET PO (10:45)
[2021-05-27] MEDS: Sertraline HCL 50 MG TABLET 150 MG PO (10:45)
[2021-05-27] MEDS: lisinopriL 5 MG TABLET PO (10:45)
[2021-05-27 10:51] VITALS: BP 98/71; PULSE 107; RESP 17; TEMP 36.5; O2SAT 92
[2021-05-27 11:42] LABS: INTERNATIONAL NORM RATIO 2.1 (0.9-1.1); Prothrombin Time 24.1 SEC (9.9-13.0)
[2021-05-27 12:56] LABS: Glucose, Whole Blood 345 mg/dL (60-115)
[2021-05-27] MEDS: Insulin Lispro 100 UNIT/ML 3 ML VIAL 8 UNIT SUBCUT (13:31)
--- NOTE | 2021-05-27 14:07 | PC.NURSE ---
patient declined to return medication bottle which this scientific writer had shown to her due to a 2 year date. patient required many redirects with clear instruction. patient swore and adjounred to room once she returned medication
[2021-05-27 17:07] VITALS: BP 119/72; PULSE 86; RESP 20; TEMP 36.6; O2SAT 93
[2021-05-27] MEDS: Warfarin Sodium 5 MG TABLET PO (17:16)
[2021-05-27 19:15] VITALS: BP 118/62; PULSE 96; TEMP 36.3; O2SAT 92
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
[2021-05-27] MEDS: OLANZapine 5 MG TABLET PO (21:19)
[2021-05-27] MEDS: clonazePAM 0.5 MG TABLET PO (21:19)
[2021-05-27] MEDS: Insulin Lispro 100 UNIT/ML 3 ML VIAL SUBCUT (21:24)
[2021-05-27 21:41] LABS: Glucose, Whole Blood 354 mg/dL (60-115)
[2021-05-27] MEDS: traZODone HCL 50 MG TABLET PO (22:21)
--- NOTE | 2021-05-27 23:21 | PC.ADMIT ---
Patient is a 46 year old single, [place] [id number] , admitted to at 1905 and placed on 15 minute safety checks. Patient was medically cleared in the [facility], evaluated by the CARE team and deemed in need of IPLOC secondary to voicing SI during a virtual therapy session. Patient has a long history of inpatient psychiatric admissions, including . Patient has a diagnosis of Major depressive disorder, current, severe; PTSD and Borderline personality disorder. She has multiple medical issues and is on Coumadin among her other medications. Patient mentioned to this selling underwriter that she has other personalities that urge her to self-harm or kill herself. Patient feels safe on and will alert staff if she has SI. Patient was pleasant and cooperative with admission process; she was able to answer all of the questions and sign legal papers. Medications were reviewed by ultrasonic welding machine operator providers. Patient's HS glucometer reading was 354. Sarai Gonzalez NP aware and wanted the blood sugar to be rechecked after 2 hours (2340). Patient resting quietly at change of shift.
--- NOTE | 2021-05-27 23:58 | PC.NURSE ---
Patient's POC at was 354. Provider was notified and wanted a recheck after two hours. At 2345 this movie writer approached patient to do the recheck and patient refused. Night dry pan charger aware.
[2021-05-28] MEDS: Levothyroxine Sodium 75 MCG TABLET PO (06:40)
[2021-05-28] MEDS: Omeprazole 20 MG CAPSULE.DR PO (06:40)
[2021-05-28 07:00] LABS: Glucose, Whole Blood 307 mg/dL (60-115)
[2021-05-28 08:35] VITALS: BP 132/61; PULSE 92; TEMP 36.5
[2021-05-28] MEDS: metFORMIN HCl 1,000 MG TABLET 1000 MG PO ×2 (08:42→16:58)
[2021-05-28] MEDS: Sertraline HCL 50 MG TABLET 150 MG PO (08:42)
[2021-05-28] MEDS: medroxyPROGESTERone Acetate 5 MG TABLET 10 MG PO (08:42)
[2021-05-28] MEDS: Furosemide 20 MG TABLET PO (08:42)
[2021-05-28] MEDS: Metoprolol Succinate ER 50 MG TAB.ER.24H PO (08:42)
[2021-05-28] MEDS: lisinopriL 5 MG TABLET PO (08:42)
[2021-05-28] MEDS: Insulin Lispro 100 UNIT/ML 3 ML VIAL SUBCUT ×3 (08:43→16:59)
[2021-05-28] MEDS: Atorvastatin Calcium 40 MG TABLET PO (08:43)
[2021-05-28] MEDS: clonazePAM 0.5 MG TABLET PO ×3 (08:43→21:34)
[2021-05-28] MEDS: Loratadine 10 MG TABLET PO (08:47)
[2021-05-28 09:15] LABS: Prothrombin Time 22.8 SEC (9.9-13.0)
[2021-05-28 09:18] LABS: Estimated Average Glucose 266 mg/dL; Hemoglobin A1c % 10.9 %
[2021-05-28 09:45] LABS: Cholesterol 129 mg/dL; HDL Cholesterol 29 mg/dL; LDL Cholesterol Calculated 71 mg/dl; Magnesium 1.6 mg/dL (1.6-2.6); Triglycerides 145 mg/dL
[2021-05-28 10:00] LABS: Free T4 (Free Thyroxine) 1.16 ng/dL (0.71-1.85); Thyroid Stimulating Hormone 2.06 uIU/mL (0.32-4.0)
[2021-05-28 10:16] LABS: Folate 11.7 ng/mL (> or = 4.0); Vitamin B12 1191 pg/mL (200-900)
[2021-05-28 12:16] LABS: Glucose, Whole Blood 335 mg/dL (60-115)
--- NOTE | 2021-05-28 14:50 | PC.NURSE ---
Pt reported she is a non smoker and declines nicotine replacement
[2021-05-28] MEDS: Warfarin Sodium 10 MG TABLET PO (16:58)
[2021-05-28 16:59] LABS: Glucose, Whole Blood 354 mg/dL (60-115)
[2021-05-28] MEDS: Albuterol Sulfate 90 MCG 8 GM INHALER 2 PUFF INHALE (16:59)
[2021-05-28 17:44] VITALS: BP 122/70; PULSE 106; RESP 18; TEMP 36.1; O2SAT 95
--- NOTE | 2021-05-28 18:34 | HO.PSYCHPN ---
Subjective Subjective Date of Service: 05/28/21 Reason For Visit: SI,depression Subjective Notes: Burns Warning and Conditional Voluntary Healthcare Proxy: No Guardianship: No Medical Problems Affecting Mental Status: No Interim History: Met with Anahy with [facility]. Pt reports verbalizing SI to therapist via telehealth. She is struggling with the of a friend and of a family member. She is also distressed with CHD as she believes her professional healthcare representative agreed to spend time with her weekly and has not been able to keep to this agreement. As a result, pt feels unsupported and reactive. If they don't do it they set me up to fail and I end up here-I become suicidal and Jr. tells me to kill myself. Review of meds with [facility]-pt needing insulin orders, her Rx is not in formulary-team will replace with Lantus. Call to [place] [facility]. Spoke with Cortes and Micheline. Denise is her professional healthcare representative [phone] and reports pt's range is 2-3 with 10 mg Mon, Wed, Thurs, Sat and 15 mg Tu Fri, Sun. Cortes reports 10 mg Sun, Mon, Wed, Shari, Sat and 15 mg Tues, Fri. Kacie [facility] suggests 10 mg daily-[place] [facility] is supportive. Medication Compliance: Yes Side effects from medications: No Attending Groups: No Review of Systems Acute medical concerns: No Medical Review of Systems: unchanged Review of Systems Reports behavioral changes Psychiatric: Reports anxiety, Reports behavioral changes, Reports depression, Reports difficulty concentrating, Reports auditory hallucinations, Reports hopelessness, Reports irritability, Reports anhedonia, Reports mood swings, Reports paranoia and Reports suicidal ideation Mental Status Exam Mental Status Exam Patient Appearance: Appropriate Patient Orientation: Person, Place, Time and Situation Level of Consciousness: Alert Patient Behavior: Talkative and Good Eye Contact Mood Description: Depressed Affect Description: Flat Patient Cognition Impaired: No Ability to Follow Directions: Good Speech Pattern: Perseverating, Spontaneous Speech and Soft-Spoken Memory Description: Intact Hallucinations: Auditory Delusions: Being Controlled, Paranoid Ideation and Present Perceptual Disturbances: Depersonalization and Derealization Thought Process: Distracted and Rumination Thought Content: positive for [place], positive for Circumstantial and positive for Suicidal Ideation Depressive Symptoms: Increased Anxiety, Diff. Making Decisions, Increased Irritability, Loss of Int. in Activity, Feelings of Worthlessness, Hopelessness, Unhappiness, Increased Fatigue, Thoughts of /Suicide, Low Self Esteem, Loss of Energy and Difficulty Concentrating Judgement: Fair Diagnostics Vital Signs (24Hr): Vital Signs - 24 hr 05/27/21 19:15 05/28/21 08:35 05/28/21 17:44 Temperature 97.4 F 97.7 F 96.9 F Pulse Rate 96 92 106 H Respiratory Rate 18 Blood Pressure 118/62 132/61 122/70 Pulse Oximetry 92 95 BMI result Body Mass Index 53.2 Labs Results: 05/26/21 18:20 05/26/21 18:19 Labs: Laboratory Results - last 48 hr 05/26/21 05/26/21 05/26/21 18:04 18:04 18:19 WBC RBC Hgb Hct MCV MCH MCHC RDW Plt Count MPV Immature Gran % (Auto) Neut % (Auto) Lymph % (Auto) [place] % (Auto) Eos % (Auto) Baso % (Auto) Lymph # (Auto) [place] # (Auto) Eos # (Auto) Baso # (Auto) Abs Immat Gran (auto) Absolute Neuts (auto) Absolute Nucleated RBC Nucleated RBC % (auto) PT 36.1 H INR 3.1 H APTT 59.1 H Sodium Potassium Chloride Carbon Dioxide Anion Gap BUN Creatinine Estim Creat Clear Calc Estimated GFR POC Glucose Random Glucose Estimat Average Glucose Hemoglobin A1c % Calcium Magnesium Total Bilirubin AST ALT Alkaline Phosphatase Total Protein Albumin Triglycerides Cholesterol LDL Cholesterol, Calc HDL Cholesterol Vitamin B12 Folate TSH Free T4 Salicylates Urine Opiates Screen Not Detected Urine Fentanyl Screen Not Detected Acetaminophen Ur Barbiturates Screen Not Detected Ur Phencyclidine Scrn Not Detected Ur Amphetamines Screen Not Detected U Benzodiazepines Scrn Not Detected Urine Cocaine Screen Not Detected U Marijuana (THC) Screen Not Detected COVID-19 ([place]) Negative COVID-19 Clin Com See Note 05/26/21 05/26/21 05/26/21 18:19 18:20 21:56 WBC 12.1 H RBC 5.33 Hgb 12.9 Hct 43.1 MCV 80.9 MCH 24.2 L MCHC 29.9 L RDW 19.9 H Plt Count 340 MPV 10.8 Immature Gran % (Auto) 0.5 H Neut % (Auto) 72.4 Lymph % (Auto) 19.5 L [place] % (Auto) 5.5 Eos % (Auto) 1.6 Baso % (Auto) 0.5 Lymph # (Auto) 2.4 [place] # (Auto) 0.7 Eos # (Auto) 0.2 Baso # (Auto) 0.1 Abs Immat Gran (auto) 0.06 H Absolute Neuts (auto) 8.7 H Absolute Nucleated RBC 0.080 H Nucleated RBC % (auto) 0.7 H PT INR APTT Sodium 137 Potassium 4.3 Chloride 99 Carbon Dioxide 26 Anion Gap 16 BUN 14 Creatinine 1.39 Estim Creat Clear Calc 77.8 Estimated GFR 41 POC Glucose 362 H* Random Glucose 473 H* D Estimat Average Glucose Hemoglobin A1c % Calcium 9.2 Magnesium Total Bilirubin 0.9 AST 15 ALT 18 Alkaline Phosphatase 93 Total Protein 7.6 Albumin 4.1 Triglycerides Cholesterol LDL Cholesterol, Calc HDL Cholesterol Vitamin B12 Folate TSH Free T4 Salicylates < 5.0 L Urine Opiates Screen Urine Fentanyl Screen Acetaminophen < 1 Ur Barbiturates Screen Ur Phencyclidine Scrn Ur Amphetamines Screen U Benzodiazepines Scrn Urine Cocaine Screen U Marijuana (THC) Screen COVID-19 ([place]) Express Fit 05/26/21 05/27/21 05/27/21 23:31 00:02 06:29 WBC RBC Hgb Hct MCV MCH MCHC RDW Plt Count MPV Immature Gran % (Auto) Neut % (Auto) Lymph % (Auto) [place] % (Auto) Eos % (Auto) Baso % (Auto) Lymph # (Auto) [place] # (Auto) Eos # (Auto) Baso # (Auto) Abs Immat Gran (auto) Absolute Neuts (auto) Absolute Nucleated RBC Nucleated RBC % (auto) PT INR APTT Sodium Potassium Chloride Carbon Dioxide Anion Gap BUN Creatinine Estim Creat Clear Calc Estimated GFR POC Glucose 375 H* 287 H 348 H Random Glucose Estimat Average Glucose Hemoglobin A1c % Calcium Magnesium Total Bilirubin AST ALT Alkaline Phosphatase Total Protein Albumin Triglycerides Cholesterol LDL Cholesterol, Calc HDL Cholesterol Vitamin B12 Folate TSH Free T4 Salicylates Urine Opiates Screen Urine Fentanyl Screen Acetaminophen Ur Barbiturates Screen Ur Phencyclidine Scrn Ur Amphetamines Screen U Benzodiazepines Scrn Urine Cocaine Screen U Marijuana (THC) Screen COVID-19 ([place]) COVID-PASSNFLY 05/27/21 05/27/21 05/27/21 11:29 12:52 21:15 WBC RBC Hgb Hct MCV MCH MCHC RDW Plt Count MPV Immature Gran % (Auto) Neut % (Auto) Lymph % (Auto) [place] % (Auto) Eos % (Auto) Baso % (Auto) Lymph # (Auto) [place] # (Auto) Eos # (Auto) Baso # (Auto) Abs Immat Gran (auto) Absolute Neuts (auto) Absolute Nucleated RBC Nucleated RBC % (auto) PT 24.1 H INR 2.1 H APTT Sodium Potassium Chloride Carbon Dioxide Anion Gap BUN Creatinine Estim Creat Clear Calc Estimated GFR POC Glucose 345 H 354 H* Random Glucose Estimat Average Glucose Hemoglobin A1c % Calcium Magnesium Total Bilirubin AST ALT Alkaline Phosphatase Total Protein Albumin Triglycerides Cholesterol LDL Cholesterol, Calc HDL Cholesterol Vitamin B12 Folate TSH Free T4 Salicylates Urine Opiates Screen Urine Fentanyl Screen Acetaminophen Ur Barbiturates Screen Ur Phencyclidine Scrn Ur Amphetamines Screen U Benzodiazepines Scrn Urine Cocaine Screen U Marijuana (THC) Screen COVID-19 ([place]) COVID-PASSNFLY 05/28/21 05/28/21 05/28/21 06:56 08:19 08:19 WBC RBC Hgb Hct MCV MCH MCHC RDW Plt Count MPV Immature Gran % (Auto) Neut % (Auto) Lymph % (Auto) [place] % (Auto) Eos % (Auto) Baso % (Auto) Lymph # (Auto) [place] # (Auto) Eos # (Auto) Baso # (Auto) Abs Immat Gran (auto) Absolute Neuts (auto) Absolute Nucleated RBC Nucleated RBC % (auto) PT 22.8 H INR 2.0 H APTT Sodium Potassium Chloride Carbon Dioxide Anion Gap BUN Creatinine Estim Creat Clear Calc Estimated GFR POC Glucose 307 H Random Glucose Estimat Average Glucose 266 Hemoglobin A1c % 10.9 Calcium Magnesium Total Bilirubin AST ALT Alkaline Phosphatase Total Protein Albumin Triglycerides Cholesterol LDL Cholesterol, Calc HDL Cholesterol Vitamin B12 Folate TSH Free T4 Salicylates Urine Opiates Screen Urine Fentanyl Screen Acetaminophen Ur Barbiturates Screen Ur Phencyclidine Scrn Ur Amphetamines Screen U Benzodiazepines Scrn Urine Cocaine Screen U Marijuana (THC) Screen COVID-19 ([place]) COVID-PASSNFLY 05/28/21 05/28/21 05/28/21 08:19 08:19 12:12 WBC RBC Hgb Hct MCV MCH MCHC RDW Plt Count MPV Immature Gran % (Auto) Neut % (Auto) Lymph % (Auto) [place] % (Auto) Eos % (Auto) Baso % (Auto) Lymph # (Auto) [place] # (Auto) Eos # (Auto) Baso # (Auto) Abs Immat Gran (auto) Absolute Neuts (auto) Absolute Nucleated RBC Nucleated RBC % (auto) PT INR APTT Sodium Potassium Chloride Carbon Dioxide Anion Gap BUN Creatinine Estim Creat Clear Calc Estimated GFR POC Glucose 335 H Random Glucose Estimat Average Glucose Hemoglobin A1c % Calcium Magnesium 1.6 Total Bilirubin AST ALT Alkaline Phosphatase Total Protein Albumin Triglycerides 145 Cholesterol 129 D LDL Cholesterol, Calc 71 HDL Cholesterol 29 D Vitamin B12 1191 H Folate 11.7 TSH 2.06 Free T4 1.16 Salicylates Urine Opiates Screen Urine Fentanyl Screen Acetaminophen Ur Barbiturates Screen Ur Phencyclidine Scrn Ur Amphetamines Screen U Benzodiazepines Scrn Urine Cocaine Screen U Marijuana (THC) Screen COVID-19 ([place]) COVID-PASSNFLY 05/28/21 16:42 WBC RBC Hgb Hct MCV MCH MCHC RDW Plt Count MPV Immature Gran % (Auto) Neut % (Auto) Lymph % (Auto) [place] % (Auto) Eos % (Auto) Baso % (Auto) Lymph # (Auto) [place] # (Auto) Eos # (Auto) Baso # (Auto) Abs Immat Gran (auto) Absolute Neuts (auto) Absolute Nucleated RBC Nucleated RBC % (auto) PT INR APTT Sodium Potassium Chloride Carbon Dioxide Anion Gap BUN Creatinine Estim Creat Clear Calc Estimated GFR POC Glucose 354 H* Random Glucose Estimat Average Glucose Hemoglobin A1c % Calcium Magnesium Total Bilirubin AST ALT Alkaline Phosphatase Total Protein Albumin Triglycerides Cholesterol LDL Cholesterol, Calc HDL Cholesterol Vitamin B12 Folate TSH Free T4 Salicylates Urine Opiates Screen Urine Fentanyl Screen Acetaminophen Ur Barbiturates Screen Ur Phencyclidine Scrn Ur Amphetamines Screen U Benzodiazepines Scrn Urine Cocaine Screen U Marijuana (THC) Screen COVID-19 ([place]) COVID-PASSNFLY Medications Medications Current Medications Acetaminophen (Acetaminophen 325 Mg Tablet) 650 mg PO Q6H PRN PRN Reason: Headache/Pain Mild Scale (1-3) Al Hydroxide/Mg Hydroxide (Magnesium Hydrox/Alum Hydrox 30 Ml Oral.Susp) 30 ml PO Q6H PRN PRN Reason: Heartburn/Nausea Albuterol Sulfate (Albuterol Sulfate (0.083%) 2.5 Mg/3 Ml Vial.Neb) 2.5 mg INHALE QID PRN PRN Reason: Allergic Reaction Albuterol Sulfate (Albuterol Sulfate 90 Mcg 8 Gm Inhaler) 2 puff INHALE QID PRN PRN Reason: Shortness of breath, wheezing Last Admin: 05/28/21 16:59 Dose: 2 puff Documented by: Atorvastatin Calcium (Atorvastatin Calcium 40 Mg Tablet) 40 mg PO DAILY [facility] Last Admin: 05/28/21 08:43 Dose: 40 mg Documented by: Clonazepam (Clonazepam 0.5 Mg Tablet) 0.5 mg PO BID [facility] Last Admin: 05/28/21 08:43 Dose: 0.5 mg Documented by: Clonazepam (Clonazepam 0.5 Mg Tablet) 0.5 mg PO DAILY PRN PRN Reason: anxiety Last Admin: 05/28/21 16:59 Dose: 0.5 mg Documented by: Furosemide (Furosemide 20 Mg Tablet) 20 mg PO DAILY [facility]; Protocol Last Admin: 05/28/21 08:42 Dose: 20 mg Documented by: Glucose (Glucose Gel 15 Gm Gel..Gram.) 15 gm PO Q15M PRN; Protocol PRN Reason: per Hypoglycemia Standing Ord. Hydroxyzine HCl (Hydroxyzine Hcl 25 Mg Tablet) 25 mg PO Q6H PRN PRN Reason: Anxiety Insulin Human Lispro (Insulin Lispro 100 Unit/Ml 3 Ml Vial) 0 unit SUBCUT QIDACHS [facility]; Protocol Last Admin: 05/28/21 16:59 Dose: 10 unit Documented by: Levothyroxine Sodium (Levothyroxine Sodium 75 Mcg Tablet) 75 mcg PO DAILY@0600 [facility] Last Admin: 05/28/21 06:40 Dose: 75 mcg Documented by: Lisinopril (Lisinopril 5 Mg Tablet) 5 mg PO DAILY [facility]; Protocol Last Admin: 05/28/21 08:42 Dose: 5 mg Documented by: Loratadine (Loratadine 10 Mg Tablet) 10 mg PO DAILY [facility] Last Admin: 05/28/21 08:47 Dose: 10 mg Documented by: Magnesium Hydroxide (Milk Of Magnesia 30 Ml Oral.Susp) 30 ml PO DAILY PRN PRN Reason: Constipation Medroxyprogesterone Acetate (Medroxyprogesterone Acetate 5 Mg Tablet) 10 mg PO DAILY [facility] Last Admin: 05/28/21 08:42 Dose: 10 mg Documented by: Metformin HCl (Metformin Hcl 1,000 Mg Tablet) 1,000 mg PO BIDWM [facility] Last Admin: 05/28/21 16:58 Dose: 1,000 mg Documented by: Metoprolol Succinate (Metoprolol Succinate Er 50 Mg Tab.Er.24h) 50 mg PO DAILY [facility]; Protocol Last Admin: 05/28/21 08:42 Dose: 50 mg Documented by: Non-Formulary Medication (Trulicity) 4.5 mg SUBCUT ONCE [facility] Non-Formulary Medication (Toujeo) 46 units SUBCUT BEDTIME [facility] Omeprazole (Omeprazole 20 Mg Capsule.Dr) 20 mg PO DAILY@0630 [facility] Last Admin: 05/28/21 06:40 Dose: 20 mg Documented by: Sertraline HCl (Sertraline Hcl 50 Mg Tablet) 150 mg PO DAILY [facility] Last Admin: 05/28/21 08:42 Dose: 150 mg Documented by: Trazodone HCl (Trazodone Hcl 50 Mg Tablet) 50 mg PO BEDTIME PRN PRN Reason: insomnia Last Admin: 05/27/21 22:21 Dose: 50 mg Documented by: Trazodone HCl (Trazodone Hcl 50 Mg Tablet) 50 mg PO BEDTIME PRN PRN Reason: Insomnia Warfarin Sodium (Warfarin Sodium 10 Mg Tablet) 10 mg PO DAILY@1800 [facility] Last Admin: 05/28/21 16:58 Dose: 10 mg Documented by: Allergies Allergies Allergy/AdvReac Type Severity Reaction Status Date / Time Penicillins [PENICILLINS] Allergy Intermediate HIVES Verified 03/12/21 13:46 egg [Egg] Allergy Mild SWELLING Verified 03/12/21 13:46 aspirin Allergy Unknown Unknown Verified 03/12/21 13:46 bee pollen [BEE STINGS] Allergy Unknown UNKNOWN Verified 03/12/21 13:46 lactose [LACTOSE] Allergy Unknown UNKNOWN Verified 03/12/21 13:46 latex [LATEX] Allergy Unknown HIVES Verified 03/12/21 13:46 oxycodone Allergy Unknown Unknown Verified 03/12/21 13:46 peanut [PEANUT] Allergy Unknown UNKNOWN Verified 03/12/21 13:46 penicillin V Allergy Unknown Unknown Verified 03/12/21 13:46 kiwi Allergy Anaphylaxis Verified 03/12/21 13:46 eggs,bees,latex,peanuts Allergy Unknown Unknown Uncoded 03/12/21 13:46 medical tape Allergy Unknown Unknown Uncoded 03/12/21 13:46 TAPE,PLASTIC Allergy Unknown RASH Uncoded 03/12/21 13:46 Assessment & Plan Assessment & Plan (1) PTSD (post-traumatic stress disorder): Status: Acute Code(s): F43.10 - Post-traumatic stress disorder, unspecified (2) Recurrent major depression: Status: Acute Code(s): F33.9 - Major depressive disorder, recurrent, unspecified Plan 46 yo female, reports SI, voices telling her to suicide in response to two deaths-one of a good friend and one family member. Also pt is feeling distressed due to promises made by her residential team that have not been able to be met. Care discussed with Arcadio Jaramillo APRN who is pt's prescriber. At this time no medicine changes, however, will discuss with pt a prn to assist with grounding when hearing command voices to suicide. Coumadin clinic and pharmacy reviewed plan of care. -Encourage milieu groups to assist in processing losses and expectations. -Discharge planning. I spent minutes with the patient and/or on the patient floor today, greater than?50% of which was spent counseling/coordinating care. Patient educated on: medication risk/benefits and therapeutic strategies Informed Consent: understands and further education needed Reason for contiued inpatient stay Substantial Risk for: harm to self, inability to function, rapid decompensation and med/psych decompensation
[2021-05-28] MEDS: Acetaminophen 325 MG TABLET 650 MG PO (19:39)
[2021-05-28 21:09] LABS: Glucose, Whole Blood 415 mg/dL (60-115)
[2021-05-28] MEDS: Insulin Glargine,Hum.rec.anlog 100 UNIT/ML 10 ML VIAL 36 UNIT SUBCUT (21:34)
[2021-05-28] MEDS: Insulin Lispro 100 UNIT/ML 3 ML VIAL 10 UNIT SUBCUT (21:35)
[2021-05-28 22:33] LABS: Glucose, Whole Blood 227 mg/dL (60-115)
[2021-05-28] MEDS: traZODone HCL 50 MG TABLET PO (23:33)
[2021-05-29 06:10] LABS: Glucose, Whole Blood 248 mg/dL (60-115)
[2021-05-29] MEDS: Omeprazole 20 MG CAPSULE.DR PO (06:10)
[2021-05-29] MEDS: Levothyroxine Sodium 75 MCG TABLET PO (06:10)
[2021-05-29 08:45] VITALS: BP 105/61; PULSE 93; TEMP 36.5
[2021-05-29 08:57] LABS: INTERNATIONAL NORM RATIO 2.1 (0.9-1.1); Prothrombin Time 23.8 SEC (9.9-13.0)
[2021-05-29] MEDS: medroxyPROGESTERone Acetate 5 MG TABLET 10 MG PO (08:57)
[2021-05-29] MEDS: Furosemide 20 MG TABLET PO (08:57)
[2021-05-29] MEDS: Loratadine 10 MG TABLET PO (08:57)
[2021-05-29] MEDS: Sertraline HCL 50 MG TABLET 150 MG PO (08:57)
[2021-05-29] MEDS: clonazePAM 0.5 MG TABLET PO ×2 (08:58→21:00)
[2021-05-29] MEDS: Atorvastatin Calcium 40 MG TABLET PO (08:58)
[2021-05-29] MEDS: lisinopriL 5 MG TABLET PO (08:58)
[2021-05-29] MEDS: Insulin Lispro 100 UNIT/ML 3 ML VIAL SUBCUT ×4 (08:58→21:00)
[2021-05-29] MEDS: metFORMIN HCl 1,000 MG TABLET 1000 MG PO ×2 (08:58→16:59)
[2021-05-29] MEDS: Metoprolol Succinate ER 50 MG TAB.ER.24H PO (08:58)
[2021-05-29 12:21] LABS: Glucose, Whole Blood 313 mg/dL (60-115)
--- NOTE | 2021-05-29 12:33 | HO.PSYCHPN ---
Subjective Subjective Date of Service: 05/29/21 Reason For Visit: SI,depression Subjective Notes: Conditional Voluntary Healthcare Proxy: No Guardianship: No Medical Problems Affecting Mental Status: No Interim History: I am self-reliant until I get overwhelmed-then I need support and I don't have it. Discussed frustration that needs are not met, services are not in place. States this causes an increase in voices and an increase risk that I will freak out . Expressed frustration with systems. Discussed distress tolerance-pt agrees that we should work on this module. Discussed adding a mood stabilizer and prn for assist in mood mgt, grounding. Pt agrees. Medication Compliance: Yes Side effects from medications: No Attending Groups: Yes Review of Systems Acute medical concerns: No Medical Review of Systems: unchanged Review of Systems Reports behavioral changes Psychiatric: Reports anxiety, Reports behavioral changes, Reports depression, Reports difficulty concentrating, Reports auditory hallucinations, Reports hopelessness, Reports irritability, Reports anhedonia, Reports mood swings, Reports paranoia and Reports suicidal ideation Mental Status Exam Mental Status Exam Patient Appearance: Appropriate Patient Orientation: Person, Place, Time and Situation Level of Consciousness: Alert Patient Behavior: Talkative and Good Eye Contact Mood Description: Depressed Affect Description: Flat Patient Cognition Impaired: No Ability to Follow Directions: Good Speech Pattern: Perseverating, Spontaneous Speech and Soft-Spoken Memory Description: Intact Hallucinations: Auditory Delusions: Being Controlled, Paranoid Ideation and Present Perceptual Disturbances: Depersonalization and Derealization Thought Process: Distracted and Rumination Thought Content: positive for [place], positive for Circumstantial and positive for Suicidal Ideation Depressive Symptoms: Increased Anxiety, Diff. Making Decisions, Increased Irritability, Loss of Int. in Activity, Feelings of Worthlessness, Hopelessness, Unhappiness, Increased Fatigue, Thoughts of /Suicide, Low Self Esteem, Loss of Energy and Difficulty Concentrating Judgement: Fair Diagnostics Vital Signs (24Hr): Vital Signs - 24 hr 05/28/21 17:44 Temperature 96.9 F Pulse Rate 106 H Respiratory Rate 18 Blood Pressure 122/70 Pulse Oximetry 95 BMI result Body Mass Index 53.2 Labs Results: 05/26/21 18:20 05/26/21 18:19 Labs: Laboratory Results - last 48 hr 05/27/21 05/27/21 05/28/21 12:52 21:15 06:56 PT INR POC Glucose 345 H 354 H* 307 H Estimat Average Glucose Hemoglobin A1c % Magnesium Triglycerides Cholesterol LDL Cholesterol, Calc HDL Cholesterol Vitamin B12 Folate TSH Free T4 05/28/21 05/28/21 05/28/21 08:19 08:19 08:19 PT 22.8 H INR 2.0 H POC Glucose Estimat Average Glucose 266 Hemoglobin A1c % 10.9 Magnesium 1.6 Triglycerides 145 Cholesterol 129 D LDL Cholesterol, Calc 71 HDL Cholesterol 29 D Vitamin B12 Folate TSH 2.06 Free T4 1.16 05/28/21 05/28/21 05/28/21 08:19 12:12 16:42 PT INR POC Glucose 335 H 354 H* Estimat Average Glucose Hemoglobin A1c % Magnesium Triglycerides Cholesterol LDL Cholesterol, Calc HDL Cholesterol Vitamin B12 1191 H Folate 11.7 TSH Free T4 05/28/21 05/28/21 05/29/21 21:03 22:29 06:06 PT INR POC Glucose 415 H* 227 H 248 H Estimat Average Glucose Hemoglobin A1c % Magnesium Triglycerides Cholesterol LDL Cholesterol, Calc HDL Cholesterol Vitamin B12 Folate TSH Free T4 05/29/21 05/29/21 08:25 12:16 PT 23.8 H INR 2.1 H POC Glucose 313 H Estimat Average Glucose Hemoglobin A1c % Magnesium Triglycerides Cholesterol LDL Cholesterol, Calc HDL Cholesterol Vitamin B12 Folate TSH Free T4 Medications Medications Current Medications Acetaminophen (Acetaminophen 325 Mg Tablet) 650 mg PO Q6H PRN PRN Reason: Headache/Pain Mild Scale (1-3) Last Admin: 05/28/21 19:39 Dose: 650 mg Documented by: Al Hydroxide/Mg Hydroxide (Magnesium Hydrox/Alum Hydrox 30 Ml Oral.Susp) 30 ml PO Q6H PRN PRN Reason: Heartburn/Nausea Albuterol Sulfate (Albuterol Sulfate (0.083%) 2.5 Mg/3 Ml Vial.Neb) 2.5 mg INHALE QID PRN PRN Reason: Allergic Reaction Albuterol Sulfate (Albuterol Sulfate 90 Mcg 8 Gm Inhaler) 2 puff INHALE QID PRN PRN Reason: Shortness of breath, wheezing Last Admin: 05/28/21 16:59 Dose: 2 puff Documented by: Atorvastatin Calcium (Atorvastatin Calcium 40 Mg Tablet) 40 mg PO DAILY [facility] Last Admin: 05/29/21 08:58 Dose: 40 mg Documented by: Clonazepam (Clonazepam 0.5 Mg Tablet) 0.5 mg PO BID [facility] Last Admin: 05/29/21 08:58 Dose: 0.5 mg Documented by: Clonazepam (Clonazepam 0.5 Mg Tablet) 0.5 mg PO DAILY PRN PRN Reason: anxiety Last Admin: 05/28/21 16:59 Dose: 0.5 mg Documented by: Furosemide (Furosemide 20 Mg Tablet) 20 mg PO DAILY [facility]; Protocol Last Admin: 05/29/21 08:57 Dose: 20 mg Documented by: Glucose (Glucose Gel 15 Gm Gel..Gram.) 15 gm PO Q15M PRN; Protocol PRN Reason: per Hypoglycemia Standing Ord. Hydroxyzine HCl (Hydroxyzine Hcl 25 Mg Tablet) 25 mg PO Q6H PRN PRN Reason: Anxiety Insulin Glargine (Insulin Glargine,Hum.Rec.Anlog 100 Unit/Ml 10 Ml Vial) 36 unit SUBCUT BEDTIME [facility] Last Admin: 05/28/21 21:34 Dose: 36 unit Documented by: Insulin Human Lispro (Insulin Lispro 100 Unit/Ml 3 Ml Vial) 0 unit SUBCUT QIDACHS [facility]; Protocol Last Admin: 05/29/21 08:58 Dose: 6 unit Documented by: Levothyroxine Sodium (Levothyroxine Sodium 75 Mcg Tablet) 75 mcg PO DAILY@0600 [facility] Last Admin: 05/29/21 06:10 Dose: 75 mcg Documented by: Lisinopril (Lisinopril 5 Mg Tablet) 5 mg PO DAILY [facility]; Protocol Last Admin: 05/29/21 08:58 Dose: 5 mg Documented by: Loratadine (Loratadine 10 Mg Tablet) 10 mg PO DAILY [facility] Last Admin: 05/29/21 08:57 Dose: 10 mg Documented by: Magnesium Hydroxide (Milk Of Magnesia 30 Ml Oral.Susp) 30 ml PO DAILY PRN PRN Reason: Constipation Medroxyprogesterone Acetate (Medroxyprogesterone Acetate 5 Mg Tablet) 10 mg PO DAILY [facility] Last Admin: 05/29/21 08:57 Dose: 10 mg Documented by: Metformin HCl (Metformin Hcl 1,000 Mg Tablet) 1,000 mg PO BIDWM [facility] Last Admin: 05/29/21 08:58 Dose: 1,000 mg Documented by: Metoprolol Succinate (Metoprolol Succinate Er 50 Mg Tab.Er.24h) 50 mg PO DAILY [facility]; Protocol Last Admin: 05/29/21 08:58 Dose: 50 mg Documented by: Omeprazole (Omeprazole 20 Mg Capsule.Dr) 20 mg PO DAILY@0630 [facility] Last Admin: 05/29/21 06:10 Dose: 20 mg Documented by: Sertraline HCl (Sertraline Hcl 50 Mg Tablet) 150 mg PO DAILY [facility] Last Admin: 05/29/21 08:57 Dose: 150 mg Documented by: Trazodone HCl (Trazodone Hcl 50 Mg Tablet) 50 mg PO BEDTIME PRN PRN Reason: insomnia Last Admin: 05/28/21 23:33 Dose: 50 mg Documented by: Trazodone HCl (Trazodone Hcl 50 Mg Tablet) 50 mg PO BEDTIME PRN PRN Reason: Insomnia Trolamine Salicylate/Aloe Vera (Trolamine Salicylate 10%/Aloe Cream 35.4 Gm) 1 appl TOPICAL QID PRN PRN Reason: arthritis pain Last Admin: 05/28/21 23:19 Dose: 1 appl Documented by: Warfarin Sodium (Warfarin Sodium 10 Mg Tablet) 10 mg PO DAILY@1800 [facility] Last Admin: 05/28/21 16:58 Dose: 10 mg Documented by: Allergies Allergies Allergy/AdvReac Type Severity Reaction Status Date / Time Penicillins [PENICILLINS] Allergy Intermediate HIVES Verified 03/12/21 13:46 egg [Egg] Allergy Mild SWELLING Verified 03/12/21 13:46 aspirin Allergy Unknown Unknown Verified 03/12/21 13:46 bee pollen [BEE STINGS] Allergy Unknown UNKNOWN Verified 03/12/21 13:46 lactose [LACTOSE] Allergy Unknown UNKNOWN Verified 03/12/21 13:46 latex [LATEX] Allergy Unknown HIVES Verified 03/12/21 13:46 oxycodone Allergy Unknown Unknown Verified 03/12/21 13:46 peanut [PEANUT] Allergy Unknown UNKNOWN Verified 03/12/21 13:46 penicillin V Allergy Unknown Unknown Verified 03/12/21 13:46 kiwi Allergy Anaphylaxis Verified 03/12/21 13:46 eggs,bees,latex,peanuts Allergy Unknown Unknown Uncoded 03/12/21 13:46 medical tape Allergy Unknown Unknown Uncoded 03/12/21 13:46 TAPE,PLASTIC Allergy Unknown RASH Uncoded 03/12/21 13:46 Assessment & Plan Assessment & Plan (1) PTSD (post-traumatic stress disorder): Status: Acute Code(s): F43.10 - Post-traumatic stress disorder, unspecified (2) Borderline personality disorder: Status: Acute Code(s): F60.3 - Borderline personality disorder Plan Anahy is a 46 y.o. female who carries a dx of BPD, PTSD. Has hx of pseudoseizures. She presented [place] [facility] on 05[place]26[place]21 due to SI and command AH. She was referred to crisis by her therapist at [facility]. Pt has a hx of multiple inpatient admissions for similar presentation, feels she is not getting adequate attention and care from OP providers, leading to acting out bx, depression, perceptual disturbances, and SI. Plan: Continue home medications unchanged, as pt is not open to changes at this time. Will collaborate with [facility] team.? Monitor response to medications. Monitor for safety in the milieu. Discharge on stabilization. Patient seen. Chart reviewed. Discussed with team. Obtain collateral contact info?as needed 05/29/21: 1. Lamictal 25 mg HS 2. Risperdal 0.5 mg bid prn for grounding 3. Will review DBT distress tolerance module with Anahy. She reports she has had minimal exposure to DBT and has interest in improving her coping skills. I spent minutes with the patient and/or on the patient floor today, greater than?50% of which was spent counseling/coordinating care. Patient educated on: medication risk/benefits and therapeutic strategies Informed Consent: understands and further education needed Reason for contiued inpatient stay Substantial Risk for: harm to self, harm to others, inability to function and rapid decompensation
[2021-05-29 16:55] LABS: Glucose, Whole Blood 320 mg/dL (60-115)
[2021-05-29] MEDS: Warfarin Sodium 10 MG TABLET PO (16:59)
[2021-05-29 18:39] VITALS: BP 122/70; PULSE 89
[2021-05-29 20:49] LABS: Glucose, Whole Blood 311 mg/dL (60-115)
[2021-05-29] MEDS: Insulin Glargine,Hum.rec.anlog 100 UNIT/ML 10 ML VIAL 36 UNIT SUBCUT (20:59)
[2021-05-29] MEDS: lamoTRIgine 25 MG TABLET PO (21:01)
[2021-05-30] MEDS: Omeprazole 20 MG CAPSULE.DR PO (06:42)
[2021-05-30] MEDS: Levothyroxine Sodium 75 MCG TABLET PO (06:42)
[2021-05-30 07:59] LABS: INTERNATIONAL NORM RATIO 1.9 (0.9-1.1); Prothrombin Time 21.3 SEC (9.9-13.0)
[2021-05-30 08:26] LABS: Glucose, Whole Blood 266 mg/dL (60-115)
[2021-05-30] MEDS: Sertraline HCL 50 MG TABLET 150 MG PO (08:45)
[2021-05-30] MEDS: Loratadine 10 MG TABLET PO (08:46)
[2021-05-30] MEDS: lisinopriL 5 MG TABLET PO (08:46)
[2021-05-30] MEDS: clonazePAM 0.5 MG TABLET PO ×2 (08:46→21:27)
[2021-05-30] MEDS: medroxyPROGESTERone Acetate 5 MG TABLET 10 MG PO (08:46)
[2021-05-30] MEDS: Furosemide 20 MG TABLET PO (08:46)
[2021-05-30] MEDS: Metoprolol Succinate ER 50 MG TAB.ER.24H PO (08:46)
[2021-05-30] MEDS: metFORMIN HCl 1,000 MG TABLET 1000 MG PO ×2 (08:46→17:16)
[2021-05-30] MEDS: Atorvastatin Calcium 40 MG TABLET PO (08:46)
[2021-05-30] MEDS: Insulin Lispro 100 UNIT/ML 3 ML VIAL SUBCUT ×4 (08:48→21:27)
[2021-05-30 08:49] VITALS: BP 108/68; PULSE 91; RESP 18; TEMP 36.4; O2SAT 97
[2021-05-30 12:09] LABS: Glucose, Whole Blood 262 mg/dL (60-115)
--- NOTE | 2021-05-30 15:02 | HO.PSYCHPN ---
Subjective Subjective Date of Service: 05/30/21 Reason For Visit: SI,depression Subjective Notes: Conditional Voluntary Interim History: Anahy reports that she is feeling sad today, but declined to go into specifics She states that she feels safe on the unit Medication Compliance: Yes Side effects from medications: No Mental Status Exam Mental Status Exam Patient Appearance: Appropriate Patient Orientation: Person, Place, Time and Situation Level of Consciousness: Alert Patient Behavior: Talkative and Good Eye Contact Mood Description: Depressed Affect Description: Flat Patient Cognition Impaired: No Ability to Follow Directions: Good Speech Pattern: Perseverating, Spontaneous Speech and Soft-Spoken Memory Description: Intact Hallucinations: Auditory Delusions: Being Controlled, Paranoid Ideation and Present Perceptual Disturbances: Depersonalization and Derealization Thought Process: Distracted and Rumination Thought Content: positive for [place], positive for [place] and positive for Suicidal Ideation Depressive Symptoms: Increased Anxiety, Diff. Making Decisions, Increased Irritability, Loss of Int. in Activity, Feelings of Worthlessness, Hopelessness, Unhappiness, Increased Fatigue, Thoughts of /Suicide, Low Self Esteem, Loss of Energy and Difficulty Concentrating Judgement: Fair Diagnostics Vital Signs (24Hr): Vital Signs - 24 hr 05/29/21 18:39 05/30/21 08:49 Temperature 97.6 F Pulse Rate 89 91 Respiratory Rate 18 Blood Pressure 122/70 108/68 Pulse Oximetry 97 BMI result Body Mass Index 53.2 Labs Results: 05/26/21 18:20 05/26/21 18:19 Labs: Laboratory Results - last 48 hr 05/28/21 05/28/21 05/28/21 16:42 21:03 22:29 PT INR POC Glucose 354 H* 415 H* 227 H 05/29/21 05/29/21 05/29/21 06:06 08:25 12:16 PT 23.8 H INR 2.1 H POC Glucose 248 H 313 H 05/29/21 05/29/21 05/30/21 16:51 20:44 07:13 PT 21.3 H INR 1.9 H POC Glucose 320 H 311 H 05/30/21 05/30/21 08:22 12:06 PT INR POC Glucose 266 H 262 H Medications Medications Current Medications Acetaminophen (Acetaminophen 325 Mg Tablet) 650 mg PO Q6H PRN PRN Reason: Headache/Pain Mild Scale (1-3) Last Admin: 05/28/21 19:39 Dose: 650 mg Documented by: Al Hydroxide/Mg Hydroxide (Magnesium Hydrox/Alum Hydrox 30 Ml Oral.Susp) 30 ml PO Q6H PRN PRN Reason: Heartburn/Nausea Albuterol Sulfate (Albuterol Sulfate (0.083%) 2.5 Mg/3 Ml Vial.Neb) 2.5 mg INHALE QID PRN PRN Reason: Allergic Reaction Albuterol Sulfate (Albuterol Sulfate 90 Mcg 8 Gm Inhaler) 2 puff INHALE QID PRN PRN Reason: Shortness of breath, wheezing Last Admin: 05/28/21 16:59 Dose: 2 puff Documented by: Atorvastatin Calcium (Atorvastatin Calcium 40 Mg Tablet) 40 mg PO DAILY REPLACED BY [facility] Last Admin: 05/30/21 08:46 Dose: 40 mg Documented by: Clonazepam (Clonazepam 0.5 Mg Tablet) 0.5 mg PO BID [facility]PLACED BY [facility] Last Admin: 05/30/21 08:46 Dose: 0.5 mg Documented by: Clonazepam (Clonazepam 0.5 Mg Tablet) 0.5 mg PO DAILY PRN PRN Reason: anxiety Last Admin: 05/28/21 16:59 Dose: 0.5 mg Documented by: Furosemide (Furosemide 20 Mg Tablet) 20 mg PO DAILY [facility]; Protocol Last Admin: 05/30/21 08:46 Dose: 20 mg Documented by: Glucose (Glucose Gel 15 Gm Gel..Gram.) 15 gm PO Q15M PRN; Protocol PRN Reason: per Hypoglycemia Standing Ord. Hydroxyzine HCl (Hydroxyzine Hcl 25 Mg Tablet) 25 mg PO Q6H PRN PRN Reason: Anxiety Insulin Glargine (Insulin Glargine,Hum.Rec.Anlog 100 Unit/Ml 10 Ml Vial) 36 unit SUBCUT BEDTIME [facility]PLACED [facility] Last Admin: 05/29/21 20:59 Dose: 36 unit Documented by: Insulin Human Lispro (Insulin Lispro 100 Unit/Ml 3 Ml Vial) 0 unit SUBCUT QIDACHS REPLACED BY [facility]; Protocol Last Admin: 05/30/21 12:23 Dose: 6 unit Documented by: Lamotrigine (Lamotrigine 25 Mg Tablet) 25 mg PO BEDTIME REPLACED BY [facility] Last Admin: 05/29/21 21:01 Dose: 25 mg Documented by: Levothyroxine Sodium (Levothyroxine Sodium 75 Mcg Tablet) 75 mcg PO DAILY@0600 [facility]PLACED [facility] Last Admin: 05/30/21 06:42 Dose: 75 mcg Documented by: Lisinopril (Lisinopril 5 Mg Tablet) 5 mg PO DAILY [facility]PL[facility] BY [facility]; Protocol Last Admin: 05/30/21 08:46 Dose: 5 mg Documented by: Loratadine (Loratadine 10 Mg Tablet) 10 mg PO DAILY [facility]PL[facility] BY [facility] Last Admin: 05/30/21 08:46 Dose: 10 mg Documented by: Magnesium Hydroxide (Milk Of Magnesia 30 Ml Oral.Susp) 30 ml PO DAILY PRN PRN Reason: Constipation Medroxyprogesterone Acetate (Medroxyprogesterone Acetate 5 Mg Tablet) 10 mg PO DAILY [facility]PL[facility] Last Admin: 05/30/21 08:46 Dose: 10 mg Documented by: Metformin HCl (Metformin Hcl 1,000 Mg Tablet) 1,000 mg PO BIDWM REPLACED BY [facility] Last Admin: 05/30/21 08:46 Dose: 1,000 mg Documented by: Metoprolol Succinate (Metoprolol Succinate Er 50 Mg Tab.Er.24h) 50 mg PO DAILY [facility]PL[facility]ED BY [facility]; Protocol Last Admin: 05/30/21 08:46 Dose: 50 mg Documented by: Omeprazole (Omeprazole 20 Mg Capsule.Dr) 20 mg PO DAILY@0630 REPLACED BY [facility] Last Admin: 05/30/21 06:42 Dose: 20 mg Documented by: Risperidone (Risperidone 0.5 Mg Tablet) 0.5 mg PO BID PRN PRN Reason: PTSD sx, grounding sx Sertraline HCl (Sertraline Hcl 50 Mg Tablet) 150 mg PO DAILY [facility]PL[facility] BY [facility] Last Admin: 05/30/21 08:45 Dose: 150 mg Documented by: Trazodone HCl (Trazodone Hcl 50 Mg Tablet) 50 mg PO BEDTIME PRN PRN Reason: insomnia Last Admin: 05/28/21 23:33 Dose: 50 mg Documented by: Trazodone HCl (Trazodone Hcl 50 Mg Tablet) 50 mg PO BEDTIME PRN PRN Reason: Insomnia Trolamine Salicylate/Aloe Vera (Trolamine Salicylate 10%/Aloe Cream 35.4 Gm) 1 appl TOPICAL QID PRN PRN Reason: arthritis pain Last Admin: 05/29/21 15:01 Dose: 1 appl Documented by: Warfarin Sodium (Warfarin Sodium 10 Mg Tablet) 10 mg PO DAILY@1800 REPLACED BY [facility] Last Admin: 05/29/21 16:59 Dose: 10 mg Documented by: Warfarin Sodium (Warfarin Sodium 5 Mg Tablet) 5 mg PO ONCE ONE Stop: 05/30/21 18:01 Allergies Allergies Allergy/AdvReac Type Severity Reaction Status Date / Time Penicillins [PENICILLINS] Allergy Intermediate HIVES Verified 03/12/21 13:46 egg [Egg] Allergy Mild SWELLING Verified 03/12/21 13:46 aspirin Allergy Unknown Unknown Verified 03/12/21 13:46 bee pollen [BEE STINGS] Allergy Unknown UNKNOWN Verified 03/12/21 13:46 lactose [LACTOSE] Allergy Unknown UNKNOWN Verified 03/12/21 13:46 latex [LATEX] Allergy Unknown HIVES Verified 03/12/21 13:46 oxycodone Allergy Unknown Unknown Verified 03/12/21 13:46 peanut [PEANUT] Allergy Unknown UNKNOWN Verified 03/12/21 13:46 penicillin V Allergy Unknown Unknown Verified 03/12/21 13:46 kiwi Allergy Anaphylaxis Verified 03/12/21 13:46 eggs,bees,latex,peanuts Allergy Unknown Unknown Uncoded 03/12/21 13:46 medical tape Allergy Unknown Unknown Uncoded 03/12/21 13:46 TAPE,PLASTIC Allergy Unknown RASH Uncoded 03/12/21 13:46 Assessment & Plan Assessment & Plan (1) PTSD (post-traumatic stress disorder): Status: Acute Code(s): F43.10 - Post-traumatic stress disorder, unspecified (2) Borderline personality disorder: Status: Acute Code(s): F60.3 - Borderline personality disorder Plan Anahy is a 46 y.o. female who carries a dx of BPD, PTSD. Has hx of pseudoseizures. She presented to [facility] on 05/26/21 due to SI and command AH. She was referred to crisis by her therapist at [facility]. Pt has a hx of multiple inpatient admissions for similar presentation, feels she is not getting adequate attention and care from OP providers, leading to acting out bx, depression, perceptual disturbances, and SI. Plan: Continue home medications unchanged, as pt is not open to changes at this time. Will collaborate with [facility] team.? Monitor response to medications. Monitor for safety in the milieu. Discharge on stabilization. Patient seen. Chart reviewed. Discussed with team. Obtain collateral contact info?as needed 05/29/21: 1. Lamictal 25 mg HS 2. Risperdal 0.5 mg bid prn for grounding 3. Will review DBT distress tolerance module with Anahy. She reports she has had minimal exposure to DBT and has interest in improving her coping skills. 05/30/21 - CT above plan I spent minutes with the patient and/or on the patient floor today, greater than?50% of which was spent counseling/coordinating care. Patient educated on: diagnosis and medication risk/benefits Informed Consent: further education needed Reason for contiued inpatient stay Substantial Risk for: rapid decompensation
[2021-05-30 17:15] LABS: Glucose, Whole Blood 337 mg/dL (60-115)
[2021-05-30] MEDS: Warfarin Sodium 10 MG TABLET PO (17:16)
[2021-05-30] MEDS: Warfarin Sodium 5 MG TABLET PO (17:16)
[2021-05-30 21:10] LABS: Glucose, Whole Blood 314 mg/dL (60-115)
[2021-05-30] MEDS: lamoTRIgine 25 MG TABLET PO (21:27)
[2021-05-30] MEDS: Insulin Glargine,Hum.rec.anlog 100 UNIT/ML 10 ML VIAL 36 UNIT SUBCUT (21:28)
[2021-05-30 21:34] VITALS: BP 120/57; PULSE 100; RESP 20; TEMP 36.1; O2SAT 93
[2021-05-31] MEDS: Levothyroxine Sodium 75 MCG TABLET PO (06:19)
[2021-05-31] MEDS: Omeprazole 20 MG CAPSULE.DR PO (06:19)
[2021-05-31 08:11] LABS: Glucose, Whole Blood 171 mg/dL (60-115)
[2021-05-31] MEDS: Loratadine 10 MG TABLET PO (08:44)
[2021-05-31] MEDS: clonazePAM 0.5 MG TABLET PO ×3 (08:44→21:58)
[2021-05-31] MEDS: Furosemide 20 MG TABLET PO (08:44)
[2021-05-31] MEDS: Sertraline HCL 50 MG TABLET 150 MG PO (08:44)
[2021-05-31] MEDS: medroxyPROGESTERone Acetate 5 MG TABLET 10 MG PO (08:44)
[2021-05-31] MEDS: Atorvastatin Calcium 40 MG TABLET PO (08:44)
[2021-05-31 08:45] VITALS: BP 162/95; PULSE 107; RESP 18; TEMP 36.6; O2SAT 97
[2021-05-31] MEDS: Metoprolol Succinate ER 50 MG TAB.ER.24H PO (08:45)
[2021-05-31] MEDS: metFORMIN HCl 1,000 MG TABLET 1000 MG PO ×2 (08:45→16:50)
[2021-05-31] MEDS: lisinopriL 5 MG TABLET PO (08:45)
[2021-05-31] MEDS: Insulin Lispro 100 UNIT/ML 3 ML VIAL SUBCUT ×4 (08:46→21:59)
[2021-05-31 09:05] LABS: Prothrombin Time 23.5 SEC (9.9-13.0)
[2021-05-31 09:29] LABS: Creatinine Clr Calc Pharmacy 113.8; Estimated Glomerular Filt Rate > 60
[2021-05-31] MEDS: Albuterol Sulfate 90 MCG 8 GM INHALER 2 PUFF INHALE (10:57)
[2021-05-31] MEDS: Albuterol Sulfate (0.083%) 2.5 MG/3 ML VIAL.NEB INHALE (11:28)
[2021-05-31 11:29] VITALS: PULSE 104; RESP 18; O2SAT 97
[2021-05-31 11:39] LABS: Glucose, Whole Blood 411 mg/dL (60-115)
--- NOTE | 2021-05-31 12:11 | PC.NURSE ---
Pt had 1130 POC 441. Pt received 10 units humalog per sliding scale. Dr. Ceja contacted, no additional orders.
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
[2021-05-31 16:43] LABS: Glucose, Whole Blood 226 mg/dL (60-115)
[2021-05-31] MEDS: Warfarin Sodium 10 MG TABLET PO (16:50)
[2021-05-31] MEDS: risperiDONE 0.5 MG TABLET PO (17:12)
[2021-05-31 18:12] VITALS: BP 131/73; PULSE 86; RESP 17; TEMP 36.1; O2SAT 95
--- NOTE | 2021-05-31 18:43 | PC.NURSE ---
Pt put in a Three Day Notice on Tuesday05/31/2021 up on Tuesday06/03/2021.
[2021-05-31 21:45] LABS: Glucose, Whole Blood 297 mg/dL (60-115)
[2021-05-31] MEDS: lamoTRIgine 25 MG TABLET PO (21:58)
[2021-05-31] MEDS: Insulin Glargine,Hum.rec.anlog 100 UNIT/ML 10 ML VIAL 36 UNIT SUBCUT (21:58)
[2021-06-01 06:00] VITALS: BP 121/72; PULSE 95; RESP 16; TEMP 36.5; O2SAT 94
[2021-06-01] MEDS: Omeprazole 20 MG CAPSULE.DR PO (06:10)
[2021-06-01] MEDS: Levothyroxine Sodium 75 MCG TABLET PO (06:10)
[2021-06-01 08:32] LABS: Glucose, Whole Blood 162 mg/dL (60-115)
[2021-06-01 08:45] LABS: INTERNATIONAL NORM RATIO 2.6 (0.9-1.1); Prothrombin Time 30.5 SEC (9.9-13.0)
[2021-06-01] MEDS: Furosemide 20 MG TABLET PO (09:37)
[2021-06-01] MEDS: clonazePAM 0.5 MG TABLET PO ×2 (09:37→22:23)
[2021-06-01] MEDS: lisinopriL 5 MG TABLET PO (09:37)
[2021-06-01] MEDS: Sertraline HCL 50 MG TABLET 150 MG PO (09:37)
[2021-06-01] MEDS: medroxyPROGESTERone Acetate 5 MG TABLET 10 MG PO (09:37)
[2021-06-01] MEDS: Atorvastatin Calcium 40 MG TABLET PO (09:37)
[2021-06-01] MEDS: Insulin Lispro 100 UNIT/ML 3 ML VIAL SUBCUT ×4 (09:37→22:35)
[2021-06-01] MEDS: Metoprolol Succinate ER 50 MG TAB.ER.24H PO (09:37)
[2021-06-01] MEDS: metFORMIN HCl 1,000 MG TABLET 1000 MG PO ×2 (09:37→17:17)
[2021-06-01] MEDS: Loratadine 10 MG TABLET PO (09:38)
--- NOTE | 2021-06-01 11:25 | HE.PHANOTE ---
Patient own medications are being stored in the main pharmacy: Medroxyprogesterone, Albuterol Inhaler, and Ventolin
[2021-06-01 12:30] LABS: Glucose, Whole Blood 263 mg/dL (60-115)
[2021-06-01 17:08] LABS: Glucose, Whole Blood 242 mg/dL (60-115)
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
[2021-06-01] MEDS: Warfarin Sodium 10 MG TABLET PO (17:16)
[2021-06-01] MEDS: Albuterol Sulfate 90 MCG 8 GM INHALER 2 PUFF INHALE (20:27)
[2021-06-01 21:00] VITALS: BP 104/64; PULSE 91; TEMP 36.6
[2021-06-01] MEDS: lamoTRIgine 25 MG TABLET PO (22:23)
[2021-06-01] MEDS: Insulin Glargine,Hum.rec.anlog 100 UNIT/ML 10 ML VIAL 36 UNIT SUBCUT (22:33)
[2021-06-01 22:34] LABS: Glucose, Whole Blood 354 mg/dL (60-115)
[2021-06-01] MEDS: traZODone HCL 50 MG TABLET PO (23:21)
[2021-06-02] MEDS: Levothyroxine Sodium 75 MCG TABLET PO (06:12)
[2021-06-02] MEDS: Omeprazole 20 MG CAPSULE.DR PO (06:12)
[2021-06-02 08:37] LABS: INTERNATIONAL NORM RATIO 2.8 (0.9-1.1); Prothrombin Time 32.8 SEC (9.9-13.0)
[2021-06-02 09:24] LABS: Glucose, Whole Blood 154 mg/dL (60-115)
[2021-06-02 09:40] VITALS: BP 126/73; PULSE 104; RESP 16; TEMP 36.6; O2SAT 92
[2021-06-02] MEDS: medroxyPROGESTERone Acetate 5 MG TABLET 10 MG PO (09:55)
[2021-06-02] MEDS: Atorvastatin Calcium 40 MG TABLET PO (09:55)
[2021-06-02] MEDS: Furosemide 20 MG TABLET PO (09:55)
[2021-06-02] MEDS: metFORMIN HCl 1,000 MG TABLET 1000 MG PO ×2 (09:56→17:17)
[2021-06-02] MEDS: clonazePAM 0.5 MG TABLET PO ×2 (09:56→21:34)
[2021-06-02] MEDS: Acetaminophen 325 MG TABLET 650 MG PO (09:56)
[2021-06-02] MEDS: Sertraline HCL 50 MG TABLET 150 MG PO (09:56)
[2021-06-02] MEDS: Metoprolol Succinate ER 50 MG TAB.ER.24H PO (09:56)
[2021-06-02] MEDS: Loratadine 10 MG TABLET PO (09:56)
[2021-06-02] MEDS: lisinopriL 5 MG TABLET PO (09:56)
[2021-06-02] MEDS: Insulin Lispro 100 UNIT/ML 3 ML VIAL SUBCUT ×3 (09:56→21:33)
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
[2021-06-02] MEDS: Albuterol Sulfate 90 MCG 8 GM INHALER 2 PUFF INHALE ×2 (15:34→22:22)
[2021-06-02 16:45] LABS: Glucose, Whole Blood 331 mg/dL (60-115)
[2021-06-02 16:47] VITALS: BP 121/67; PULSE 91; RESP 18; TEMP 36.4; O2SAT 94
[2021-06-02] MEDS: Warfarin Sodium 10 MG TABLET PO (17:21)
[2021-06-02] MEDS: Insulin Glargine,Hum.rec.anlog 100 UNIT/ML 10 ML VIAL 36 UNIT SUBCUT (21:33)
[2021-06-02] MEDS: lamoTRIgine 25 MG TABLET PO (21:34)
[2021-06-02 22:14] LABS: Glucose, Whole Blood 320 mg/dL (60-115)
[2021-06-03] MEDS: Omeprazole 20 MG CAPSULE.DR PO (05:43)
[2021-06-03] MEDS: Levothyroxine Sodium 75 MCG TABLET PO (05:43)
[2021-06-03 08:40] LABS: Glucose, Whole Blood 182 mg/dL (60-115)
[2021-06-03] MEDS: Loratadine 10 MG TABLET PO (09:02)
[2021-06-03] MEDS: medroxyPROGESTERone Acetate 5 MG TABLET 10 MG PO (09:02)
[2021-06-03] MEDS: Atorvastatin Calcium 40 MG TABLET PO (09:02)
[2021-06-03] MEDS: Furosemide 20 MG TABLET PO (09:02)
[2021-06-03] MEDS: metFORMIN HCl 1,000 MG TABLET 1000 MG PO ×2 (09:02→17:25)
[2021-06-03] MEDS: clonazePAM 0.5 MG TABLET PO ×2 (09:02→20:46)
[2021-06-03] MEDS: Metoprolol Succinate ER 50 MG TAB.ER.24H PO (09:02)
[2021-06-03] MEDS: Sertraline HCL 50 MG TABLET 150 MG PO (09:03)
[2021-06-03] MEDS: Insulin Lispro 100 UNIT/ML 3 ML VIAL SUBCUT ×4 (09:04→21:15)
[2021-06-03 09:05] LABS: INTERNATIONAL NORM RATIO 2.6 (0.9-1.1); Prothrombin Time 30.5 SEC (9.9-13.0)
[2021-06-03] MEDS: lisinopriL 5 MG TABLET PO (09:07)
[2021-06-03 09:08] VITALS: BP 127/71; PULSE 85; RESP 20; TEMP 36.6; O2SAT 97
[2021-06-03 12:11] LABS: Glucose, Whole Blood 254 mg/dL (60-115)
[2021-06-03] MEDS: hydrOXYzine HCL 25 MG TABLET PO (12:19)
--- NOTE | 2021-06-03 17:16 | P.PNPSI_ITS ---
Subjective Subjective Date of Service: 06/03/21 Reason For Visit: SI,depression Subjective Notes: Conditional Voluntary Interim History: Anahy has decided not to discharge-finding she still has work to do with her safety-team reports absence seizure on 06/02, labile and combative with a peer last evening as well. Discussed feeling upset that special needs caregiver from her residence did not visit yesterday as she had indicated. Message left with Bridgette Wiley [phone] that pt would like to reschedule. Medication Compliance: Yes Side effects from medications: No Attending Groups: Yes Review of Systems Acute medical concerns: No Medical Review of Systems: unchanged Review of Systems Psychiatric: Reports anxiety, Reports depression, Reports difficulty sang ntrating, Reports hopelessness, Reports irritability, Reports paranoia and Reports suicidal ideation Mental Status Exam Mental Status Exam Patient Appearance: Appropriate Patient Orientation: Person, Place, Time and Situation Level of Consciousness: Alert Patient Behavior: Talkative, Cooperative and Good Eye Contact Mood Description: Depressed and Anxious Affect Description: Anxious Patient Cognition Impaired: No Ability to Follow Directions: Good Speech Pattern: Spontaneous Speech Memory Description: Intact Hallucinations: Auditory Delusions: Paranoid Ideation Perceptual Disturbances: Depersonalization and Derealization Thought Process: Rumination and Goal Oriented Thought Content: positive for [place], positive for Circumstantial, positive for Persever[place] and positive for Suicidal Ideation Depressive Symptoms: Increased Anxiety, Thoughts of /Suicide and Difficulty Concentrating Abnormal Motor Activity Signs and Symptoms: Restlessness Judgement: Fair Diagnostics Vital Signs (24Hr): Vital Signs - 24 hr 06/03/21 09:08 Temperature 97.8 F Pulse Rate 85 Respiratory Rate 20 Blood Pressure 127/71 Pulse Oximetry 97 BMI result Body Mass Index 53.2 Labs Results: 05/26/21 18:20 05/31/21 08:52 Labs: Laboratory Results - last 48 hr 06/01/21 06/02/21 06/02/21 22:20 08:23 09:20 PT 32.8 H INR 2.8 H POC Glucose 354 H* 154 H 06/02/21 06/02/21 06/03/21 16:41 20:25 08:24 PT 30.5 H INR 2.6 H POC Glucose 331 H 320 H 06/03/21 06/03/21 08:36 12:07 PT INR POC Glucose 182 H 254 H Medications Medications Current Medications Acetaminophen (Acetaminophen 325 Mg Tablet) 650 mg PO Q6H PRN PRN Reason: Headache/Pain Mild Scale (1-3) Last Admin: 06/02/21 09:56 Dose: 650 mg Documented by: Al Hydroxide/Mg Hydroxide (Magnesium Hydrox/Alum Hydrox 30 Ml Oral.Susp) 30 ml PO Q6H PRN PRN Reason: Heartburn/Nausea Albuterol Sulfate (Albuterol Sulfate 90 Mcg 8 Gm Inhaler) 2 puff INHALE QID PRN PRN Reason: Shortness of breath, wheezing Last Admin: 06/02/21 22:22 Dose: 2 puff Documented by: Atorvastatin Calcium (Atorvastatin Calcium 40 Mg Tablet) 40 mg PO DAILY [facility] Last Admin: 06/03/21 09:02 Dose: 40 mg Documented by: Clonazepam (Clonazepam 0.5 Mg Tablet) 0.5 mg PO BID [facility] Last Admin: 06/03/21 09:02 Dose: 0.5 mg Documented by: Clonazepam (Clonazepam 0.5 Mg Tablet) 0.5 mg PO DAILY PRN PRN Reason: anxiety Last Admin: 05/31/21 17:12 Dose: 0.5 mg Documented by: Furosemide (Furosemide 20 Mg Tablet) 20 mg PO DAILY [facility]; Protocol Last Admin: 06/03/21 09:02 Dose: 20 mg Documented by: Glucose (Glucose Gel 15 Gm Gel..Gram.) 15 gm PO Q15M PRN; Protocol PRN Reason: per Hypoglycemia Standing Ord. Hydroxyzine HCl (Hydroxyzine Hcl 25 Mg Tablet) 25 mg PO Q6H PRN PRN Reason: Anxiety Last Admin: 06/03/21 12:19 Dose: 25 mg Documented by: Insulin Glargine (Insulin Glargine,Hum.Rec.Anlog 100 Unit/Ml 10 Ml Vial) 36 unit SUBCUT BEDTIME [facility] Last Admin: 06/02/21 21:33 Dose: 36 unit Documented by: Insulin Human Lispro (Insulin Lispro 100 Unit/Ml 3 Ml Vial) 0 unit SUBCUT QIDACHS [facility]; Protocol Last Admin: 06/03/21 12:12 Dose: 6 unit Documented by: Lamotrigine (Lamotrigine 25 Mg Tablet) 25 mg PO BEDTIME [facility] Last Admin: 06/02/21 21:34 Dose: 25 mg Documented by: Levothyroxine Sodium (Levothyroxine Sodium 75 Mcg Tablet) 75 mcg PO DAILY@0600 [facility] Last Admin: 06/03/21 05:43 Dose: 75 mcg Documented by: Lisinopril (Lisinopril 5 Mg Tablet) 5 mg PO DAILY [facility]; Protocol Last Admin: 06/03/21 09:07 Dose: 5 mg Documented by: Loratadine (Loratadine 10 Mg Tablet) 10 mg PO DAILY [facility] Last Admin: 06/03/21 09:02 Dose: 10 mg Documented by: Magnesium Hydroxide (Milk Of Magnesia 30 Ml Oral.Susp) 30 ml PO DAILY PRN PRN Reason: Constipation Medroxyprogesterone Acetate (Medroxyprogesterone Acetate 5 Mg Tablet) 10 mg PO DAILY [facility] Last Admin: 06/03/21 09:02 Dose: 10 mg Documented by: Metformin HCl (Metformin Hcl 1,000 Mg Tablet) 1,000 mg PO BIDWM [facility] Last Admin: 06/03/21 09:02 Dose: 1,000 mg Documented by: Metoprolol Succinate (Metoprolol Succinate Er 50 Mg Tab.Er.24h) 50 mg PO DAILY [facility]; Protocol Last Admin: 06/03/21 09:02 Dose: 50 mg Documented by: Omeprazole (Omeprazole 20 Mg Capsule.Dr) 20 mg PO DAILY@0630 [facility] Last Admin: 06/03/21 05:43 Dose: 20 mg Documented by: Risperidone (Risperidone 0.5 Mg Tablet) 0.5 mg PO BID PRN PRN Reason: PTSD sx, grounding sx Last Admin: 05/31/21 17:12 Dose: 0.5 mg Documented by: Sertraline HCl (Sertraline Hcl 50 Mg Tablet) 150 mg PO DAILY [facility] Last Admin: 06/03/21 09:03 Dose: 150 mg Documented by: Trazodone HCl (Trazodone Hcl 50 Mg Tablet) 50 mg PO BEDTIME PRN PRN Reason: insomnia Last Admin: 06/01/21 23:21 Dose: 50 mg Documented by: Trazodone HCl (Trazodone Hcl 50 Mg Tablet) 50 mg PO BEDTIME PRN PRN Reason: Insomnia Trolamine Salicylate/Aloe Vera (Trolamine Salicylate 10%/Aloe Cream 35.4 Gm) 1 appl TOPICAL QID PRN PRN Reason: arthritis pain Last Admin: 05/29/21 15:01 Dose: 1 appl Documented by: Warfarin Sodium (Warfarin Sodium 10 Mg Tablet) 10 mg PO DAILY@1800 [facility] Last Admin: 06/02/21 17:21 Dose: 10 mg Documented by: Allergies Allergies Allergy/AdvReac Type Severity Reaction Status Date / Time Penicillins [PENICILLINS] Allergy Intermediate HIVES Verified 03/12/21 13:46 egg [Egg] Allergy Mild SWELLING Verified 03/12/21 13:46 aspirin Allergy Unknown Unknown Verified 03/12/21 13:46 bee pollen [BEE STINGS] Allergy Unknown UNKNOWN Verified 03/12/21 13:46 lactose [LACTOSE] Allergy Unknown UNKNOWN Verified 03/12/21 13:46 latex [LATEX] Allergy Unknown HIVES Verified 03/12/21 13:46 oxycodone Allergy Unknown Unknown Verified 03/12/21 13:46 peanut [PEANUT] Allergy Unknown UNKNOWN Verified 03/12/21 13:46 penicillin V Allergy Unknown Unknown Verified 03/12/21 13:46 kiwi Allergy Anaphylaxis Verified 03/12/21 13:46 eggs,bees,latex,peanuts Allergy Unknown Unknown Uncoded 03/12/21 13:46 medical tape Allergy Unknown Unknown Uncoded 03/12/21 13:46 TAPE,PLASTIC Allergy Unknown RASH Uncoded 03/12/21 13:46 Assessment & Plan Assessment & Plan (1) PTSD (post-traumatic stress disorder): Status: Acute Code(s): F43.10 - Post-traumatic stress disorder, unspecified (2) Borderline personality disorder: Status: Acute Code(s): F60.3 - Borderline personality disorder Plan Anahy is a 46 y.o. female who carries a dx of BPD, PTSD. Has hx of pseudoseizures. She presented to [facility] ED on 05/26/21 due to SI and command AH. She was referred to crisis by her therapist at [facility]. Pt has a hx of multiple inpatient admissions for similar presentation, feels she is not getting adequate attention and care from OP providers, leading to acting out bx, depression, perceptual disturbances, and SI. Plan: Continue home medications unchanged, as pt is not open to changes at this time. Will collaborate with [facility] team.? Monitor response to medications. Monitor for safety in the milieu. Discharge on stabilization. Patient seen. Chart reviewed. Discussed with team. Obtain collateral contact info?as needed 05/29/21: 1. Lamictal 25 mg HS 2. Risperdal 0.5 mg bid prn for grounding 3. Will review DBT distress tolerance module with Anahy. She reports she has had minimal exposure to DBT and has interest in improving her coping skills. 05/30/21 - CT above plan 05/31/21 - no change 06/01/21- Given distress tolerance handouts for review Difficult weekend-has submitted a three day notice of intent to discharge Continue current regime and assist pt in choosing the best plan of care for her at the current time. INR 1.9, 2, 2.6-continue Warfarin at 10 mg. 06/03/21 Continue current regime Discharge planning with safety factors/supports in place Message left for residential special needs caregiver. Pt would like to meet. I spent minutes with the patient and/or on the patient floor today, greater than?50% of which was spent counseling/coordinating care. Patient educated on: therapeutic strategies Informed Consent: understands and further education needed Reason for contiued inpatient stay Substantial Risk for: harm to self, inability to function and rapid decompensation
[2021-06-03 17:25] LABS: Glucose, Whole Blood 303 mg/dL (60-115)
[2021-06-03] MEDS: Warfarin Sodium 10 MG TABLET PO (17:26)
[2021-06-03 19:25] VITALS: BP 136/64; PULSE 103; TEMP 36.4
[2021-06-03] MEDS: lamoTRIgine 25 MG TABLET PO (20:46)
[2021-06-03] MEDS: Acetaminophen 325 MG TABLET 650 MG PO (21:14)
[2021-06-03 21:15] LABS: Glucose, Whole Blood 248 mg/dL (60-115)
[2021-06-03] MEDS: Insulin Glargine,Hum.rec.anlog 100 UNIT/ML 10 ML VIAL 36 UNIT SUBCUT (21:15)
[2021-06-04 06:28] LABS: Glucose, Whole Blood 187 mg/dL (60-115)
[2021-06-04] MEDS: Omeprazole 20 MG CAPSULE.DR PO (06:39)
[2021-06-04] MEDS: Levothyroxine Sodium 75 MCG TABLET PO (06:39)
[2021-06-04 07:00] VITALS: BMI 53.3
[2021-06-04] MEDS: Insulin Lispro 100 UNIT/ML 3 ML VIAL SUBCUT ×4 (09:11→20:32)
[2021-06-04] MEDS: Furosemide 20 MG TABLET PO (09:17)
[2021-06-04] MEDS: clonazePAM 0.5 MG TABLET PO ×2 (09:18→20:32)
[2021-06-04] MEDS: medroxyPROGESTERone Acetate 5 MG TABLET 10 MG PO (09:18)
[2021-06-04] MEDS: metFORMIN HCl 1,000 MG TABLET 1000 MG PO ×2 (09:18→16:31)
[2021-06-04] MEDS: lisinopriL 5 MG TABLET PO (09:18)
[2021-06-04] MEDS: Sertraline HCL 50 MG TABLET 150 MG PO (09:18)
[2021-06-04] MEDS: Metoprolol Succinate ER 50 MG TAB.ER.24H PO (09:18)
[2021-06-04] MEDS: Loratadine 10 MG TABLET PO (09:18)
[2021-06-04] MEDS: Atorvastatin Calcium 40 MG TABLET PO (09:19)
[2021-06-04 09:21] VITALS: BP 149/95; PULSE 93; RESP 18; TEMP 36.1; O2SAT 98
[2021-06-04 10:32] LABS: INTERNATIONAL NORM RATIO 2.5 (0.9-1.1); Prothrombin Time 29.3 SEC (9.9-13.0)
[2021-06-04 11:48] LABS: Glucose, Whole Blood 262 mg/dL (60-115)
[2021-06-04 16:21] LABS: Glucose, Whole Blood 377 mg/dL (60-115)
[2021-06-04] MEDS: Warfarin Sodium 10 MG TABLET PO (16:32)
--- NOTE | 2021-06-04 17:30 | P.PNPSI_ITS ---
Subjective Subjective Date of Service: 06/04/21 Reason For Visit: SI,depression Interim History: I would like to go home tomorrow. Anahy discussed her decision to request discharge-states she is not a person who does well with others rules-she disagrees with team asking her to put more clothing on over her tank top, does not want to go to a snf and be told what to do. She believes she will do well continuing in her own home with support. She feels she does not need to be told what to do, but needs the support to help her to guide her own decision making. Denies SI, requests discharge for 06/05. Will look into DBT groups with [facility]. Discussed resources she can also look into in the area. Medication Compliance: Yes Side effects from medications: No Attending Groups: Yes Review of Systems Acute medical concerns: No Medical Review of Systems: unchanged Review of Systems Psychiatric: Reports no additional psychiatric complaints Mental Status Exam Mental Status Exam Patient Appearance: Appropriate Patient Orientation: Person, Place, Time and Situation Level of Consciousness: Alert Patient Behavior: Appropriate, Talkative, Cooperative and Good Eye Contact Mood Description: Calm Affect Description: Calm Patient Cognition Impaired: No Ability to Follow Directions: Good Speech Pattern: Spontaneous Speech Memory Description: Intact Hallucinations: None Delusions: Not Present Thought Process: Intact and Goal Oriented Thought Content: positive for Intact and positive for Goal Oriented Judgement: Good Diagnostics Vital Signs (24Hr): Vital Signs - 24 hr 06/03/21 19:25 06/04/21 09:21 Temperature 97.5 F 97.0 F Pulse Rate 103 H 93 Respiratory Rate 18 Blood Pressure 136/64 149/95 H Pulse Oximetry 98 BMI result Body Mass Index 53.3 Labs Results: 05/26/21 18:20 05/31/21 08:52 Labs: Laboratory Results - last 48 hr 06/02/21 06/03/21 06/03/21 20:25 08:24 08:36 PT 30.5 H INR 2.6 H POC Glucose 320 H 182 H 06/03/21 06/03/21 06/03/21 12:07 17:08 20:44 PT INR POC Glucose 254 H 303 H 248 H 06/04/21 06/04/21 06/04/21 06:16 09:56 11:43 PT 29.3 H INR 2.5 H POC Glucose 187 H 262 H 06/04/21 16:16 PT INR POC Glucose 377 H* Medications Medications Current Medications Acetaminophen (Acetaminophen 325 Mg Tablet) 650 mg PO Q6H PRN PRN Reason: Headache/Pain Mild Scale (1-3) Last Admin: 06/03/21 21:14 Dose: 650 mg Documented by: Al Hydroxide/Mg Hydroxide (Magnesium Hydrox/Alum Hydrox 30 Ml Oral.Susp) 30 ml PO Q6H PRN PRN Reason: Heartburn/Nausea Albuterol Sulfate (Albuterol Sulfate 90 Mcg 8 Gm Inhaler) 2 puff INHALE QID PRN PRN Reason: Shortness of breath, wheezing Last Admin: 06/02/21 22:22 Dose: 2 puff Documented by: Atorvastatin Calcium (Atorvastatin Calcium 40 Mg Tablet) 40 mg PO DAILY CLAIRE Last Admin: 06/04/21 09:19 Dose: 40 mg Documented by: Clonazepam (Clonazepam 0.5 Mg Tablet) 0.5 mg PO BID CLAIRE Last Admin: 06/04/21 09:18 Dose: 0.5 mg Documented by: Clonazepam (Clonazepam 0.5 Mg Tablet) 0.5 mg PO DAILY PRN PRN Reason: anxiety Last Admin: 05/31/21 17:12 Dose: 0.5 mg Documented by: Erythromycin (Erythromycin Base 0.5% Oph Oin 1 Gm Tube) 1 cm EYE-BOTH BID CLAIRE Furosemide (Furosemide 20 Mg Tablet) 20 mg PO DAILY [facility]; Protocol Last Admin: 06/04/21 09:17 Dose: 20 mg Documented by: Glucose (Glucose Gel 15 Gm Gel..Gram.) 15 gm PO Q15M PRN; Protocol PRN Reason: per Hypoglycemia Standing Ord. Hydroxyzine HCl (Hydroxyzine Hcl 25 Mg Tablet) 25 mg PO Q6H PRN PRN Reason: Anxiety Last Admin: 06/03/21 12:19 Dose: 25 mg Documented by: Insulin Glargine (Insulin Glargine,Hum.Rec.Anlog 100 Unit/Ml 10 Ml Vial) 36 unit SUBCUT BEDTIME CLAIRE Last Admin: 06/03/21 21:15 Dose: 36 unit Documented by: Insulin Human Lispro (Insulin Lispro 100 Unit/Ml 3 Ml Vial) 0 unit SUBCUT QIDACHS [facility]; Protocol Last Admin: 06/04/21 16:30 Dose: 10 unit Documented by: Lamotrigine (Lamotrigine 25 Mg Tablet) 25 mg PO BEDTIME [facility] Last Admin: 06/03/21 20:46 Dose: 25 mg Documented by: Levothyroxine Sodium (Levothyroxine Sodium 75 Mcg Tablet) 75 mcg PO DAILY@0600 [facility] Last Admin: 06/04/21 06:39 Dose: 75 mcg Documented by: Lisinopril (Lisinopril 5 Mg Tablet) 5 mg PO DAILY [facility]; Protocol Last Admin: 06/04/21 09:18 Dose: 5 mg Documented by: Loratadine (Loratadine 10 Mg Tablet) 10 mg PO DAILY [facility] Last Admin: 06/04/21 09:18 Dose: 10 mg Documented by: Magnesium Hydroxide (Milk Of Magnesia 30 Ml Oral.Susp) 30 ml PO DAILY PRN PRN Reason: Constipation Medroxyprogesterone Acetate (Medroxyprogesterone Acetate 5 Mg Tablet) 10 mg PO DAILY [facility] Last Admin: 06/04/21 09:18 Dose: 10 mg Documented by: Metformin HCl (Metformin Hcl 1,000 Mg Tablet) 1,000 mg PO BIDWM [facility] Last Admin: 06/04/21 16:31 Dose: 1,000 mg Documented by: Metoprolol Succinate (Metoprolol Succinate Er 50 Mg Tab.Er.24h) 50 mg PO DAILY [facility]; Protocol Last Admin: 06/04/21 09:18 Dose: 50 mg Documented by: Omeprazole (Omeprazole 20 Mg Capsule.Dr) 20 mg PO DAILY@0630 [facility] Last Admin: 06/04/21 06:39 Dose: 20 mg Documented by: Risperidone (Risperidone 0.5 Mg Tablet) 0.5 mg PO BID PRN PRN Reason: PTSD sx, grounding sx Last Admin: 05/31/21 17:12 Dose: 0.5 mg Documented by: Sertraline HCl (Sertraline Hcl 50 Mg Tablet) 150 mg PO DAILY [facility] Last Admin: 06/04/21 09:18 Dose: 150 mg Documented by: Trazodone HCl (Trazodone Hcl 50 Mg Tablet) 50 mg PO BEDTIME PRN PRN Reason: insomnia Last Admin: 06/01/21 23:21 Dose: 50 mg Documented by: Trazodone HCl (Trazodone Hcl 50 Mg Tablet) 50 mg PO BEDTIME PRN PRN Reason: Insomnia Trolamine Salicylate/Aloe Vera (Trolamine Salicylate 10%/Aloe Cream 35.4 Gm) 1 appl TOPICAL QID PRN PRN Reason: arthritis pain Last Admin: 05/29/21 15:01 Dose: 1 appl Documented by: Warfarin Sodium (Warfarin Sodium 10 Mg Tablet) 10 mg PO DAILY@1800 CLAIRE Last Admin: 06/04/21 16:32 Dose: 10 mg Documented by: Allergies Allergies Allergy/AdvReac Type Severity Reaction Status Date / Time Penicillins [PENICILLINS] Allergy Intermediate HIVES Verified 03/12/21 13:46 egg [Egg] Allergy Mild SWELLING Verified 03/12/21 13:46 aspirin Allergy Unknown Unknown Verified 03/12/21 13:46 bee pollen [BEE STINGS] Allergy Unknown UNKNOWN Verified 03/12/21 13:46 lactose [LACTOSE] Allergy Unknown UNKNOWN Verified 03/12/21 13:46 latex [LATEX] Allergy Unknown HIVES Verified 03/12/21 13:46 oxycodone Allergy Unknown Unknown Verified 03/12/21 13:46 peanut [PEANUT] Allergy Unknown UNKNOWN Verified 03/12/21 13:46 penicillin V Allergy Unknown Unknown Verified 03/12/21 13:46 kiwi Allergy Anaphylaxis Verified 03/12/21 13:46 eggs,bees,latex,peanuts Allergy Unknown Unknown Uncoded 03/12/21 13:46 medical tape Allergy Unknown Unknown Uncoded 03/12/21 13:46 TAPE,PLASTIC Allergy Unknown RASH Uncoded 03/12/21 13:46 Assessment & Plan Assessment & Plan (1) PTSD (post-traumatic stress disorder): Status: Acute Code(s): F43.10 - Post-traumatic stress disorder, unspecified (2) Borderline personality disorder: Status: Acute Code(s): F60.3 - Borderline personality disorder Plan Anahy is a 46 y.o. female who carries a dx of BPD, PTSD. Has hx of pseudoseizures. She presented to [facility] on 05/26/21 due to SI and command AH. She was referred to crisis by her therapist at [facility]. Pt has a hx of multiple inpatient admissions for similar presentation, feels she is not getting adequate attention and care from OP providers, leading to acting out bx, depression, perceptual disturbances, and SI. Plan: Continue home medications unchanged, as pt is not open to changes at this time. Will collaborate with [facility] ACCS team.? Monitor response to medications. Monitor for safety in the milieu. Discharge on stabilization. Patient seen. Chart reviewed. Discussed with team. Obtain collateral contact info?as needed 05/29/21: 1. Lamictal 25 mg HS 2. Risperdal 0.5 mg bid prn for grounding 3. Will review DBT distress tolerance module with Anahy. She reports she has had minimal exposure to DBT and has interest in improving her coping skills. 05/30/21 - CT above plan 05/31/21 - no change 06/01/21- Given distress tolerance handouts for review Difficult weekend-has submitted a three day notice of intent to discharge Continue current regime and assist pt in choosing the best plan of care for her at the current time. INR 1.9, 2, 2.6-continue Warfarin at 10 mg. 06/03/21 Continue current regime Discharge planning with safety factors/supports in place Message left for residential rn long term care. Pt would like to meet. 06/04/21 Discharge 06/05/21. Will coordinate with [facility] and pt's [facility], send INR results and coordinate a return to community care. I spent minutes with the patient and/or on the patient floor today, greater than?50% of which was spent counseling/coordinating care. Patient educated on: medication risk/benefits and therapeutic strategies Informed Consent: understands and further education needed Reason for contiued inpatient stay Substantial Risk for: stable for discharge
[2021-06-04 18:00] VITALS: BP 132/79; PULSE 78; RESP 16; TEMP 36.8; O2SAT 96
[2021-06-04 20:00] LABS: Glucose, Whole Blood 335 mg/dL (60-115)
[2021-06-04] MEDS: lamoTRIgine 25 MG TABLET PO (20:31)
[2021-06-04] MEDS: Insulin Glargine,Hum.rec.anlog 100 UNIT/ML 10 ML VIAL 36 UNIT SUBCUT (20:32)
[2021-06-04] MEDS: Erythromycin Base 0.5% Oph Oin 1 GM TUBE 1 CM EYE-BOTH (20:34)
[2021-06-05] MEDS: Omeprazole 20 MG CAPSULE.DR PO (06:30)
[2021-06-05] MEDS: Levothyroxine Sodium 75 MCG TABLET PO (06:30)
[2021-06-05 08:06] LABS: Glucose, Whole Blood 143 mg/dL (60-115)
[2021-06-05 08:23] LABS: INTERNATIONAL NORM RATIO 2.9 (0.9-1.1); Prothrombin Time 33.9 SEC (9.9-13.0)
[2021-06-05 09:15] VITALS: BP 103/62; PULSE 99; RESP 18; TEMP 36.3; O2SAT 97
[2021-06-05] MEDS: clonazePAM 0.5 MG TABLET PO (09:22)
[2021-06-05] MEDS: medroxyPROGESTERone Acetate 5 MG TABLET 10 MG PO (09:22)
[2021-06-05] MEDS: lisinopriL 5 MG TABLET PO (09:22)
[2021-06-05] MEDS: Metoprolol Succinate ER 50 MG TAB.ER.24H PO (09:22)
[2021-06-05] MEDS: Atorvastatin Calcium 40 MG TABLET PO (09:22)
[2021-06-05] MEDS: Furosemide 20 MG TABLET PO (09:22)
[2021-06-05] MEDS: Sertraline HCL 50 MG TABLET 150 MG PO (09:22)
[2021-06-05] MEDS: metFORMIN HCl 1,000 MG TABLET 1000 MG PO (09:22)
[2021-06-05] MEDS: Loratadine 10 MG TABLET PO (09:22)
[2021-06-05] MEDS: Erythromycin Base 0.5% Oph Oin 1 GM TUBE 1 CM EYE-BOTH (09:23)
[2021-06-05 11:50] LABS: Glucose, Whole Blood 220 mg/dL (60-115)
[2021-06-05] MEDS: Insulin Lispro 100 UNIT/ML 3 ML VIAL SUBCUT (11:53)
--- NOTE | 2021-06-05 16:36 | PM.PSYDC ---
DS: Providers Provider Date of Service: 06/05/21 Date of admission: 05/27/21 18:24 Date of discharge: 06/05/21 Primary care physician: Maria Guadalupe Severino MD Admitting clinician: Sarai Gonzalez Attending physician on admission: Sarai Gonzalez Attending physician on discharge: Lucy Sumner Discharging clinician: Lucy Sumner DS: Diagnosis Discharge Diagnosis (1) PTSD (post-traumatic stress disorder): Status: Acute (2) Borderline personality disorder: Status: Acute DS: Medications Discharge Medications Home Medications: Home Medications Medication Instructions Recorded Confirmed dulaglutide 4.5 mg/0.5 mL 4.5 mg SUBCUT QWEEK 03/24/21 05/26/21 subcutaneous pen injector (Trulicity) furosemide 20 mg tablet 1 tab PO DAILY 05/26/21 05/26/21 insulin lispro 100 unit/mL 10 unit SUBCUT BID 05/26/21 05/26/21 subcutaneous pen (Humalog KwikPen (U-100) Insulin) levothyroxine 75 mcg tablet 1 tab PO QAM 05/26/21 05/26/21 lisinopril 5 mg tablet 1 tab PO DAILY 05/26/21 05/26/21 loratadine 10 mg tablet 1 tab PO DAILY 05/26/21 05/26/21 metformin 1,000 mg tablet 1 tab PO BID 05/26/21 05/26/21 metoprolol succinate 50 mg 1 tab PO DAILY 05/26/21 05/26/21 tablet,extended release 24 hr omeprazole 20 mg capsule,delayed 1 cap PO DAILY 05/26/21 05/26/21 release trazodone 50 mg tablet 1 tab PO BEDTIME PRN 05/26/21 05/26/21 medroxyprogesterone 5 mg tablet 2 tab PO DAILY 05/27/21 05/27/21 Previous Rx's Medication Instructions Recorded albuterol sulfate 2.5 mg (3 mL) INHALATION QID PRN 11/17/20 #3 ml sertraline 50 mg tablet 150 mg PO DAILY #30 tab 11/17/20 atorvastatin 40 mg tablet 40 mg PO DAILY #30 tab 03/30/21 clonazepam 0.5 mg tablet 0.5 mg PO BID #0 tab 06/05/21 erythromycin 5 mg/gram (0.5 %) eye 1 cm OPHTHALMIC (EYE) BID #1 g 06/05/21 ointment lamotrigine 25 mg tablet 25 mg PO BEDTIME #15 tab 06/05/21 risperidone 0.5 mg tablet 0.5 mg PO BID PRN #14 tab 06/05/21 warfarin 5 mg tablet 10 mg PO DAILY #1 tab 06/05/21 Mental Status Exam Mental Status Exam Patient Appearance: Appropriate Patient Orientation: Person, Place, Time and Situation Level of Consciousness: Alert Patient Behavior: Appropriate, Talkative, Cooperative and Good Eye Contact Mood Description: Calm Affect Description: Calm Patient Cognition Impaired: No Ability to Follow Directions: Good Speech Pattern: Spontaneous Speech Memory Description: Intact Hallucinations: None Delusions: Not Present Thought Process: Intact and Goal Oriented Thought Content: positive for Intact and positive for Goal Oriented Judgement: Good Data Data Completed and Pending Completed studies during hospitalization [Text1]: 05/29/21 05/29/21 05/30/21 16:51 20:44 07:13 PT 21.3 H INR 1.9 H Creatinine Estim Creat Clear Calc Estimated GFR POC Glucose 320 H 311 H 05/30/21 05/30/21 05/30/21 08:22 12:06 17:09 PT INR Creatinine Estim Creat Clear Calc Estimated GFR POC Glucose 266 H 262 H 337 H 05/30/21 05/31/21 05/31/21 21:06 08:07 08:52 PT 23.5 H INR 2.0 H Creatinine Estim Creat Clear Calc Estimated GFR POC Glucose 314 H 171 H 05/31/21 05/31/21 05/31/21 08:52 11:36 16:38 PT INR Creatinine 0.95 Estim Creat Clear Calc 113.8 Estimated GFR > 60 POC Glucose 411 H* 226 H 05/31/21 06/01/21 06/01/21 21:41 08:13 08:25 PT 30.5 H INR 2.6 H Creatinine Estim Creat Clear Calc Estimated GFR POC Glucose 297 H 162 H 06/01/21 06/01/21 06/01/21 12:26 17:00 22:20 PT INR Creatinine Estim Creat Clear Calc Estimated GFR POC Glucose 263 H 242 H 354 H* 06/02/21 06/02/21 06/02/21 08:23 09:20 16:41 PT 32.8 H INR 2.8 H Creatinine Estim Creat Clear Calc Estimated GFR POC Glucose 154 H 331 H 06/02/21 06/03/21 06/03/21 20:25 08:24 08:36 PT 30.5 H INR 2.6 H Creatinine Estim Creat Clear Calc Estimated GFR POC Glucose 320 H 182 H 06/03/21 06/03/21 06/03/21 12:07 17:08 20:44 PT INR Creatinine Estim Creat Clear Calc Estimated GFR POC Glucose 254 H 303 H 248 H 06/04/21 06/04/21 06/04/21 06:16 09:56 11:43 PT 29.3 H INR 2.5 H Creatinine Estim Creat Clear Calc Estimated GFR POC Glucose 187 H 262 H 06/04/21 06/04/21 06/05/21 16:16 19:57 08:02 PT INR Creatinine Estim Creat Clear Calc Estimated GFR POC Glucose 377 H* 335 H 143 H 06/05/21 06/05/21 08:07 11:47 PT 33.9 H INR 2.9 H Creatinine Estim Creat Clear Calc Estimated GFR POC Glucose 220 H DS: Summary Hospital Course Hospital Course: Admission to adult psychiatry to address symptoms of PTSD, major depression, borderline personality disorder and psychosocial conflict with her residence and out patient residential support team. Care plan, medication regime and out patient plan of care prior to admission were reviewed. Education was provided regarding management of symptoms, medications and side effects. Nursing and social service worked with Anahy on care planning, education and discharge planning. [facility] residential team was present daily to support pt and begin to help her work through recent issues identified. Lamictal was initiated, Risperdal prn for grounding was initiated. Klonopin dosing was changed to 0.5 mg bid and Warfarin dose was standardized to 10 mg daily in collaboration with her out patient anticoagulation clinic. At the end of pt's admission she presented with symptoms of conjunctivitis-as a result, emycin ointment was ordered. Time spent discussing smoking cessation with patient: 3 to 10 minutes Status at Discharge Functional status at discharge: independent ambulation Overall status at discharge: patient is back to baseline Time Spent with Patient Time attestation: Total time spent providing and/or coordinating discharge services:35 Time spent: Greater than 30 minutes Discharge Plan Discharge Patient Disposition: Home, Self-Care Discharge Diagnosis: PTSD Major Depression, Recurrent Borderline Personality Disorder Referrals: Dr. Arcadio Jaramillo (psychiatry) [Other] - 06/24/21 9:00 am (This is an in-office appointment) Maria Guadalupe Severino MD [Primary Care Provider] - 1 Week (OFFICE OF AWARE OF DISCHARGE . WILL CALL JEFFERSON SANTIAGO WITH FOLLOW-UP APPOINTMENT.) Discharge Medications: New clonazepam 0.5 mg Tablet 0.5 mg PO BID Qty: 0 0RF lamotrigine 25 mg Tablet 25 mg PO BEDTIME Qty: 15 1RF erythromycin 5 mg/gram (0.5 %) Ointment 1 cm ophthalmic (eye) BID Qty: 1 0RF risperidone 0.5 mg Tablet 0.5 mg PO BID PRN (Reason: PTSD sx, grounding sx) Qty: 14 2RF warfarin 5 mg tablet 10 mg PO DAILY Qty: 1 0RF Continued atorvastatin 40 mg tablet 40 mg PO DAILY Qty: 30 6RF albuterol sulfate 2.5 mg /3 mL (0.083 %) Solution For Nebulization 2.5 mg inhalation QID PRN (Reason: Allergic Reaction) Qty: 3 0RF sertraline 50 mg Tablet 150 mg PO DAILY Qty: 30 0RF Trulicity 4.5 mg/0.5 mL pen injector 4.5 mg subcut QWEEK 0RF furosemide 20 mg tablet 1 tab PO DAILY 0RF insulin lispro [Humalog KwikPen Insulin] 100 unit/mL insulin pen 10 unit subcut BID 0RF lisinopril 5 mg tablet 1 tab PO DAILY 0RF levothyroxine 75 mcg tablet 1 tab PO QAM 0RF loratadine 10 mg tablet 1 tab PO DAILY 0RF metoprolol succinate 50 mg tablet extended release 24 hr 1 tab PO DAILY 0RF omeprazole 20 mg capsule,delayed release(DR/EC) 1 cap PO DAILY 0RF trazodone 50 mg tablet 1 tab PO BEDTIME PRN (Reason: insomnia) 0RF medroxyprogesterone 5 mg tablet 2 tab PO DAILY 0RF Discontinued clonazepam 1 mg tablet 1 tab PO BEDTIME PRN (Reason: Insomnia) 0RF warfarin 5 mg tablet 1 - 3 tab PO DAILY 0RF No Action metformin 1,000 mg tablet 1,000 mg PO BID 90 Days Qty: 180 1RF Discharge Orders: Discharge Order (Routine); Ordered 06/05/21 Ordered By: Lucy Sumner Diet: advance to usual diet Activity on Discharge: As tolerated Stand Alone Forms: Patient Portal Discharge page, Community Support Care Plan Goals: Mood Stabilization Absence of suicidal ideation, intent, plan, actions Health Concerns: PTSD Recurrent major depression Borderline Personality Disorder Diabetes Hypertension Plan of Treatment: Attend scheduled appointments Take medications as directed Your PT/INR values have been sent to [facility] [phone]/ . They request you have a PT/INR drawn on 06/08/21. Assessment: non-suicidal, non-psychotic Discharge Date/Time: 06/05/21 13:40
== END 2021-06-05 13:40 | disposition home or self-care (01) | DRG 752 ==
LOC: HO.ED 05-27 14:34 → HO.PM5 05-27 18:30
PROVIDERS: Registered Nurse; Admitting Provider Psychiatry & Neurology Psychiatry; Emergency Provider Emergency Medicine Emergency Medical Services; PCP Internal Medicine; Visit Provider Clinical Nurse Specialist Psychiatric/Mental Health, Adult
DX: F60.3 Borderline personality disorder (principal); F33.9 Major depressive disorder, recurrent, unspecified; R45.851 Suicidal ideations; F43.10 Post-traumatic stress disorder, unspecified; Z20.822 Contact with and (suspected) exposure to COVID-19; Z88.0 Allergy status to penicillin; Z88.5 Allergy status to narcotic agent; Z88.6 Allergy status to analgesic agent; Z79.3 Long term (current) use of hormonal contraceptives; Z79.4 Long term (current) use of insulin; Z79.01 Long term (current) use of anticoagulants; Z79.84 Long term (current) use of oral hypoglycemic drugs; Z79.890 Hormone replacement therapy; Z79.899 Other long term (current) drug therapy
CPT/HCPCS: 36415; 80053; 80061; 80143; 80179; 80307; 81025; 82077; 82565; 82607; 82746; 82947; 83036; 83735; 84439; 84443; 85025; 85610; 85730; 87635; 93005; 94640; 99285

== ENCOUNTER 2021-06-22 18:24 | Emergency (ER) | payer OTHER, SELFPAY ==
--- NOTE | ~2021-06-22 | XR_ITS ---
EXAMINATION: PORTABLE CHEST 1 VIEW CLINICAL INFORMATION: SOB . COMPARISON: 04/02/2021. TECHNIQUE: Portable frontal view of the chest was obtained. FINDINGS: The lungs are well expanded. Central vascular prominence may be within normal limits for this degree of hypoexpansion No focal infiltrate, effusion, edema, or pneumothorax. Patient is status post sternotomy. Cardiac silhouette remains prominent but unchanged. No acute bony abnormality seen. XR/XR chest 1V IMPRESSION: Hypoexpanded. Central vascular prominence may in part be related to the degree of hypoexpansion. Prominent but unchanged cardiac silhouette main part be related to the degree of hypoexpansion. Status post sternotomy
--- NOTE | 2021-06-22 18:46 | ED_ITS ---
HPI - SOB/Dyspnea General Chief Complaint: Asthma Stated Complaint: ASTHMA EXAC PER EMS Time Seen by Provider: 06/22/21 18:46 Source: patient and EMS Mode of arrival: EMS Limitations: no limitations History of Present Illness HPI Narrative: 46-year-old female came in by ambulance for evaluation of asthma exacerbation. Patient is frequent ED visits her for different symptoms including borderline personality disorder, PTSD, hyperlipidemia, type 2 diabetes, hypertension, morbid obesity, asthma, DVT/ PE patient is on Coumadin. Patient presented with wheezing and productive cough with white sputum patient was given DuoNeb by EMS reported improvement. Patient declined any history of SI or HI. Related Data Home Medications Medication Instructions Recorded Confirmed dulaglutide 4.5 mg/0.5 mL 4.5 mg SUBCUT QWEEK 03/24/21 05/26/21 subcutaneous pen injector (Trulicity) furosemide 20 mg tablet 1 tab PO DAILY 05/26/21 05/26/21 insulin lispro 100 unit/mL 10 unit SUBCUT BID 05/26/21 05/26/21 subcutaneous pen (Humalog KwikPen (U-100) Insulin) levothyroxine 75 mcg tablet 1 tab PO QAM 05/26/21 05/26/21 lisinopril 5 mg tablet 1 tab PO DAILY 05/26/21 05/26/21 loratadine 10 mg tablet 1 tab PO DAILY 05/26/21 05/26/21 metoprolol succinate 50 mg 1 tab PO DAILY 05/26/21 05/26/21 tablet,extended release 24 hr omeprazole 20 mg capsule,delayed 1 cap PO DAILY 05/26/21 05/26/21 release trazodone 50 mg tablet 1 tab PO BEDTIME PRN 05/26/21 05/26/21 medroxyprogesterone 5 mg tablet 2 tab PO DAILY 05/27/21 05/27/21 Previous Rx's Medication Instructions Recorded albuterol sulfate 2.5 mg (3 mL) INHALATION QID PRN 11/17/20 #3 ml sertraline 50 mg tablet 150 mg PO DAILY #30 tab 11/17/20 atorvastatin 40 mg tablet 40 mg PO DAILY #30 tab 03/30/21 clonazepam 0.5 mg tablet 0.5 mg PO BID #0 tab 06/05/21 erythromycin 5 mg/gram (0.5 %) eye 1 cm OPHTHALMIC (EYE) BID #1 g 06/05/21 ointment lamotrigine 25 mg tablet 25 mg PO BEDTIME #15 tab 06/05/21 risperidone 0.5 mg tablet 0.5 mg PO BID PRN #14 tab 06/05/21 warfarin 5 mg tablet 10 mg PO DAILY #1 tab 06/05/21 metformin 1,000 mg tablet 1,000 mg PO BID 90 Days #180 tab 06/19/21 Allergies Allergy/AdvReac Type Severity Reaction Status Date / Time Penicillins [PENICILLINS] Allergy Intermediate HIVES Verified 03/12/21 13:46 egg [Egg] Allergy Mild SWELLING Verified 03/12/21 13:46 aspirin Allergy Unknown Unknown Verified 03/12/21 13:46 bee pollen [BEE STINGS] Allergy Unknown UNKNOWN Verified 03/12/21 13:46 lactose [LACTOSE] Allergy Unknown UNKNOWN Verified 03/12/21 13:46 latex [LATEX] Allergy Unknown HIVES Verified 03/12/21 13:46 oxycodone Allergy Unknown Unknown Verified 03/12/21 13:46 peanut [PEANUT] Allergy Unknown UNKNOWN Verified 03/12/21 13:46 penicillin V Allergy Unknown Unknown Verified 03/12/21 13:46 kiwi Allergy Anaphylaxis Verified 03/12/21 13:46 eggs,bees,latex,peanuts Allergy Unknown Unknown Uncoded 03/12/21 13:46 medical tape Allergy Unknown Unknown Uncoded 03/12/21 13:46 TAPE,PLASTIC Allergy Unknown RASH Uncoded 03/12/21 13:46 Review of Systems Review of Systems: all other systems are reviewed and are negative Constitutional: Reports as per HPI and Reports no additional constitutional complaints Eyes: Reports as per HPI and Reports no additional eye complaints Reports system reviewed and no additional complaints, except as documented Cardiovascular: Reports as per HPI and Reports no additional cardiovascular complaints Respiratory: Reports as per HPI and Reports no additional respiratory complaints Gastrointestinal: Reports as per HPI and Reports no additional gastrointestinal complaints Genitourinary: Reports no additional female genitourinary complaints Musculoskeletal: Reports no additional musculoskeletal complaints Skin/Breast: Reports system reviewed and no additional complaints, except as docu Psychiatric: Reports no additional psychiatric complaints Endocrine: Reports no additional endocrine complaints Hematologic/Lymphatic: Reports no additional hematologic/lymphatic complaints Allergic/Immunologic: Reports no additional allergic/immunologic complaints Reports system reviewed and no additional complaints, except as documented and Reports Abnormal speech present [facility] Past Medical History Medical History Acute hyperglycemia Anxiety Asthma BMI 50.0-59.9, adult Cardiomyopathy CHF (congestive heart failure) Depression Diabetes mellitus, type 2 Diabetes type 2, uncontrolled DVT (deep vein thrombosis) in Essential hypertension Gallstones Hyperlipidemia LDL goal <70 Hypertension Hypothyroidism Irritable bowel Mood disorder Obesity due to excess calories ROGERIO (obstructive sleep apnea) Pancreatitis Proteinuria PTSD (post-traumatic stress disorder) PTSD (post-traumatic stress disorder) Pulmonary embolism Recurrent major depression Surgical History History of dental surgery History of open heart surgery Hx of hernia repair Hx of removal of cyst Family History Family History Paternal Grandmother Diabetes Social History Social History Household Members: Unknown / Unable to assess Housing: Apartment Housing Other:: Has [employer] twice a day. Do you presently have visiting nurse or other home services: Yes Unable to assess alcohol history related to: Refusing to respond Alcohol intake: current Alcohol intake frequency: holidays/special occasions only Patient Tobacco Use Status: Former Tobacco user Tobacco use type: Cigarette e-Cigarette/Vaping Use: Never Used Second Hand Smoke Exposure: Yes Use of substances other than those prescribed or required for medical reasons: No Substance Use Type: Marijuana Advance Directives: No Advance Directives Information Provided: No Patient : No service: No Sexual orientation: Lesbian/Good/Homosexual Physical Exam Vital Signs: Vital Signs: Last Vital Signs Temp 98.6 F 06/22/21 20:00 Pulse 93 06/22/21 20:00 Resp 15 06/22/21 20:00 BP 116/61 06/22/21 20:00 Pulse Ox 96 06/22/21 20:00 Oxygen Flow Rate 2 06/22/21 19:03 BMI result Body Mass Index 54.2 vital signs have been reviewed as appeared to be correct. Blood pressure normal. Heart rate normal. Respiration rate normal. Temperature normal. Oxygen saturation normal. Appearance: Alert. Oriented X3. No acute distress. Head: Normal external exam. Normocephalic. Atraumatic. No Belcher signs noted. No raccoon eyes noted Eyes: PERRLA. EOMI. Conjunctiva and sclera normal. Eyelids normal. ENT: TM's Normal. Pharynx normal. Uvula midline. Moist mucous membranes. No trismus noted. No drooling noted. No muffled voice noted. Neck: Normal inspection. Neck supple. FROM. No adenopathy. Thyroid Normal. No meningeal signs. No neck mass noted. CVS: Normal heart rate and rhythm. Heart sound normal. No murmurs noted. Pulses normal throughout. Respiratory: No respiratory distress. Painless inspiration. Breath sounds normal. No wheezes/rales/rhonchi noted. Chest nontender. No accessory muscle usage noted or decreased air movement noted. Abdomen: Soft and nontender. Bowel sounds normal in all 4 quadrants. No distention noted. No organomegaly noted. No visible injury noted. Back: No CVA tenderness. Full range of motion noted. Skin: Skin warm and dry. Normal skin color. Normal skin turgor. No rashes/lesions/lacerations noted. Extremities: No lower extremity edema. Extremities exhibit normal range of motion. Extremities nontender. Neuro: Oriented X 3. Cranial nerve exam: II-XII are grossly intact No motor deficit. No sensory deficit. Reflexes normal. Course Course Course Narrative: assessment and plan. 46-year-old female came in for evaluation of shortness of breath patient with history of asthma, physical exam is consistent with acute asthma exacerbation, patient feels better after after DuoNeb and 1 dose of prednisone. patient has enough medication at home for asthma. 2 units of hemoglobin dropped from Last time patient declined any bleeding, rectal exam is negative for bleed. Negative troponin and unchanged EKG MDM - SOB/Dyspnea Medical Records Attestation: I reviewed the patient's medical records. Lab Data Attestation: I reviewed the patient's lab results. Result diagrams: 06/22/21 20:22 06/22/21 20:22 Labs: Lab Results 06/22/21 06/22/21 06/22/21 Range/Units 20:22 20:22 20:22 WBC 11.5 H (4.8-10.8) X10*3/uL RBC 4.58 (4.20-5.50) X10*6/uL Hgb 10.7 L (12.0-16.0) g/dl Hct 36.5 L (37.0-47.0) % MCV 79.7 L (80.0-98.0) fL MCH 23.4 L (27.0-33.0) pg MCHC 29.3 L (31.0-35.0) g/dl RDW 20.6 H (11.0-16.0) % Plt Count 293 (160-400) X10*3/uL MPV 9.7 (9.4-12.3) fL Immature Gran % (Auto) 0.4 (0.0-0.4) % Neut % (Auto) 68.3 (45-73) % Lymph % (Auto) 23.2 (20-40) % Garfield % (Auto) 6.0 (2-11) % Eos % (Auto) 1.6 (0-4) % Baso % (Auto) 0.5 (0-2) % Lymph # (Auto) 2.7 (1.2-4.9) X10*3/uL Garfield # (Auto) 0.7 (0.1-1.2) X10*3/uL Eos # (Auto) 0.2 (0.0-0.4) X10*3/uL Baso # (Auto) 0.1 (0.0-0.2) X10*3/uL Abs Immat Gran (auto) 0.05 H (0.00-0.03) X10*3/uL Absolute Neuts (auto) 7.8 (2.0-8.3) x10*3/uL Absolute Nucleated RBC 0.020 H (0.0-0.012) X10*3/uL Nucleated RBC % (auto) 0.2 (0.0-0.2) /100WBC Sodium 143 (135-145) mmol/L Potassium 3.7 (3.3-5.1) mmol/L Chloride 104 (96-108) mmol/L Carbon Dioxide 32 H (22-29) mmol/L Anion Gap 11 L (12-20) BUN 10 (9-16) mg/dL Creatinine 0.91 (0.5-1.4) mg/dL Estim Creat Clear Calc 120.2 Estimated GFR > 60 Random Glucose 197 H (60-115) mg/dL Calcium 8.7 (8.4-10.2) mg/dL Total Bilirubin 0.5 (0.0-1.0) mg/dL Direct Bilirubin 0.3 (0.0-0.5) mg/dL AST 26 D (5-31) U/L ALT 44 H (0-31) U/L Alkaline Phosphatase 82 (39-117) U/L Troponin I High Sens (<3.5-17.0) ng/L B-Natriuretic Peptide (<100) pg/mL Total Protein 6.3 L (6.5-8.0) g/dL Albumin 3.6 (3.5-5.0) g/dL Lipase 20 (8-78) U/L COVID-19 ([facility]ICA) Negative (Negative) COVID-19 Clin Com See Note 06/22/21 Range/Units 20:23 WBC (4.8-10.8) X10*3/uL RBC (4.20-5.50) X10*6/uL Hgb (12.0-16.0) g/dl Hct (37.0-47.0) % MCV (80.0-98.0) fL MCH (27.0-33.0) pg MCHC (31.0-35.0) g/dl RDW (11.0-16.0) % Plt Count (160-400) X10*3/uL MPV (9.4-12.3) fL Immature Gran % (Auto) (0.0-0.4) % Neut % (Auto) (45-73) % Lymph % (Auto) (20-40) % Garfield % (Auto) (2-11) % Eos % (Auto) (0-4) % Baso % (Auto) (0-2) % Lymph # (Auto) (1.2-4.9) X10*3/uL Garfield # (Auto) (0.1-1.2) X10*3/uL Eos # (Auto) (0.0-0.4) X10*3/uL Baso # (Auto) (0.0-0.2) X10*3/uL Abs Immat Gran (auto) (0.00-0.03) X10*3/uL Absolute Neuts (auto) (2.0-8.3) x10*3/uL Absolute Nucleated RBC (0.0-0.012) X10*3/uL Nucleated RBC % (auto) (0.0-0.2) /100WBC Sodium (135-145) mmol/L Potassium (3.3-5.1) mmol/L Chloride (96-108) mmol/L Carbon Dioxide (22-29) mmol/L Anion Gap (12-20) BUN (9-16) mg/dL Creatinine (0.5-1.4) mg/dL Estim Creat Clear Calc Estimated GFR Random Glucose (60-115) mg/dL Calcium (8.4-10.2) mg/dL Total Bilirubin (0.0-1.0) mg/dL Direct Bilirubin (0.0-0.5) mg/dL AST (5-31) U/L ALT (0-31) U/L Alkaline Phosphatase (39-117) U/L Troponin I High Sens < 3.5 (<3.5-17.0) ng/L B-Natriuretic Peptide 153 H (<100) pg/mL Total Protein (6.5-8.0) g/dL Albumin (3.5-5.0) g/dL Lipase (8-78) U/L COVID-19 ([facility]ICA) (Negative) COVID-19 Clin Com Imaging Data Chest x-ray: Attestation: I personally reviewed and interpreted this imaging study as follows: Radiologist's impression: Hypoexpanded. Central vascular prominence may in part be related to the degree of hypoexpansion. Prominent but unchanged cardiac silhouette main part be related to the degree of hypoexpansion. Status post sternotomy ? ECG Data Attestation: I personally reviewed and interpreted this ECG as follows: Interpretation: normal sinus rhythm at 95 beats per minutes, right axis deviation, no change from previous EKG. Discharge Plan Discharge Clinical Impression: Asthma exacerbation, Anemia Patient Disposition: Home, Self-Care Instructions: Asthma (ED), Anemia (ED) Prescriptions: No Action atorvastatin 40 mg tablet 40 mg PO DAILY Qty: 30 6RF metformin 1,000 mg tablet 1,000 mg PO BID 90 Days Qty: 180 1RF albuterol sulfate 2.5 mg /3 mL (0.083 %) Solution For Nebulization 2.5 mg inhalation QID PRN (Reason: Allergic Reaction) Qty: 3 0RF sertraline 50 mg Tablet 150 mg PO DAILY Qty: 30 0RF Trulicity 4.5 mg/0.5 mL pen injector 4.5 mg subcut QWEEK 0RF furosemide 20 mg tablet 1 tab PO DAILY 0RF insulin lispro [Humalog KwikPen Insulin] 100 unit/mL insulin pen 10 unit subcut BID 0RF lisinopril 5 mg tablet 1 tab PO DAILY 0RF levothyroxine 75 mcg tablet 1 tab PO QAM 0RF loratadine 10 mg tablet 1 tab PO DAILY 0RF metoprolol succinate 50 mg tablet extended release 24 hr 1 tab PO DAILY 0RF omeprazole 20 mg capsule,delayed release(DR/EC) 1 cap PO DAILY 0RF trazodone 50 mg tablet 1 tab PO BEDTIME PRN (Reason: insomnia) 0RF medroxyprogesterone 5 mg tablet 2 tab PO DAILY 0RF clonazepam 0.5 mg Tablet 0.5 mg PO BID Qty: 0 0RF lamotrigine 25 mg Tablet 25 mg PO BEDTIME Qty: 15 1RF erythromycin 5 mg/gram (0.5 %) Ointment 1 cm ophthalmic (eye) BID Qty: 1 0RF risperidone 0.5 mg Tablet 0.5 mg PO BID PRN (Reason: PTSD sx, grounding sx) Qty: 14 2RF warfarin 5 mg tablet 10 mg PO DAILY Qty: 1 0RF Referrals: Maria Guadalupe Severino MD [Primary Care Provider] - 2 days
[2021-06-22] MEDS: predniSONE 20 MG TABLET 40 MG PO (18:53)
--- NOTE | 2021-06-22 18:54 | ECG_ITS ---
Test Reason : ATHSMA Blood Pressure : / mmHG Vent. Rate : 095 BPM Atrial Rate : 095 BPM P-R Int : 168 ms QRS Dur : 080 ms QT Int : 384 ms P-R-T Axes : 053 105 113 degrees QTc Int : 482 ms Normal sinus rhythm Rightward axis Low voltage QRS Nonspecific T wave abnormality Abnormal ECG When compared with ECG of 26-MAY-2021 19:54, No significant change was found Referred By: Kashif Cox Electronically Signed By:TATE GEORGE
[2021-06-22 19:03] VITALS: BP 116/61; PULSE 94; RESP 18; TEMP 37; O2SAT 96; BMI 54.2
[2021-06-22] MEDS: Albuterol Sulfate (0.083%) 2.5 MG/3 ML VIAL.NEB INHALE (19:15)
[2021-06-22] MEDS: Albuterol/Iprat 2.5/0.5MG 3 ML AMPUL.NEB INHALE (19:15)
[2021-06-22 19:18] VITALS: PULSE 93; RESP 15; O2SAT 96
[2021-06-22 20:00] VITALS: BP 116/61; PULSE 93; RESP 15; TEMP 37; O2SAT 96
[2021-06-22 20:28] LABS: MANUAL DIFF FLAG NO
[2021-06-22 20:36] LABS: Basophils Absolute Auto 0.1 X10*3/uL (0.0-0.2); Basophils Percent Auto 0.5 % (0-2); Eosinophils Absolute Auto 0.2 X10*3/uL (0.0-0.4); Eosinophils Percent Auto 1.6 % (0-4); Hematocrit 36.5 % (37.0-47.0); Hemoglobin 10.7 g/dl (12.0-16.0); Imm Gran Abs Auto 0.05 X10*3/uL (0.00-0.03); Imm Gran Pct Auto 0.4 % (0.0-0.4); Lymphocytes Absolute Auto 2.7 X10*3/uL (1.2-4.9); Lymphocytes Percent Auto 23.2 % (20-40); Mean Corpuscular HGB Conc 29.3 g/dl (31.0-35.0); Mean Corpuscular Hemoglobin 23.4 pg (27.0-33.0); Mean Corpuscular Volume 79.7 fL (80.0-98.0); Mean Platelet Volume 9.7 fL (9.4-12.3); Monocytes Absolute Auto 0.7 X10*3/uL (0.1-1.2); NRBC Pct Auto 0.2 /100WBC (0.0-0.2); Neutrophils Absolute Auto 7.8 x10*3/uL (2.0-8.3); Neutrophils Percent Auto 68.3 % (45-73); Platelet Count 293 X10*3/uL (160-400); Red Blood Count 4.58 X10*6/uL (4.20-5.50); Red Cell Distribution Width 20.6 % (11.0-16.0); White Blood Count 11.5 X10*3/uL (4.8-10.8)
[2021-06-22 20:46] LABS: COVID-19 Test Negative (Negative); IDNOW Serial# 16C4AD1C
[2021-06-22 20:48] LABS: Alanine Aminotransferase 44 U/L (0-31); Albumin Level 3.6 g/dL (3.5-5.0); Alkaline Phosphatase 82 U/L (39-117); Anion Gap 11 (12-20); Aspartate Amino Transferase 26 U/L (5-31); Bilirubin Direct 0.3 mg/dL (0.0-0.5); Bilirubin Total 0.5 mg/dL (0.0-1.0); Blood Urea Nitrogen 10 mg/dL (9-16); Calcium 8.7 mg/dL (8.4-10.2); Carbon Dioxide 32 mmol/L (22-29); Chloride 104 mmol/L (96-108); Creatinine Clr Calc Pharmacy 120.2; Estimated Glomerular Filt Rate > 60; Glucose Random 197 mg/dL (60-115); Lipase 20 U/L (8-78); Potassium 3.7 mmol/L (3.3-5.1); Sodium 143 mmol/L (135-145); Total Protein 6.3 g/dL (6.5-8.0)
[2021-06-22 20:49] LABS: B Type Natriuretic Peptide 153 pg/mL (<100); Troponin-I High Sensitivity < 3.5 ng/L (<3.5-17.0)
[2021-06-22 22:08] VITALS: BP 156/91; PULSE 93; RESP 14; TEMP 36.9; O2SAT 92
[2021-06-22 22:21] LABS: OBS Int Ctl Valid YES; OBS1 NEGATIVE (NEGATIVE)
[2021-06-22 23:38] VITALS: BP 134/79; PULSE 83; RESP 20; O2SAT 94
== END 2021-06-23 01:20 | disposition home or self-care (01) ==
PROVIDERS: Emergency Provider Emergency Medicine; PCP Internal Medicine
DX: J45.901 Unspecified asthma with (acute) exacerbation (principal); D64.9 Anemia, unspecified; E11.9 Type 2 diabetes mellitus without complications; I10 Essential (primary) hypertension; E78.5 Hyperlipidemia, unspecified; Z20.822 Contact with and (suspected) exposure to COVID-19; Z86.718 Personal history of other venous thrombosis and embolism; Z79.01 Long term (current) use of anticoagulants; Z79.4 Long term (current) use of insulin
CPT/HCPCS: 36415; 71045; 80048; 80076; 82272; 83690; 83880; 84484; 85025; 87635; 93005; 94640; 99284; 99285

== ENCOUNTER → 2021-06-23 14:06 | Outpatient (BNVA) | payer OTHER, SELFPAY | PROVIDERS: PCP Internal Medicine; Visit Provider Nurse Practitioner Gerontology | DX: E11.65 Type 2 diabetes mellitus with hyperglycemia (principal); E78.5 Hyperlipidemia, unspecified; E66.01 Morbid (severe) obesity due to excess calories; Z68.43 Body mass index [BMI] 50.0-59.9, adult; I10 Essential (primary) hypertension | CPT/HCPCS: 82947; 83036; 99212 ==

== ENCOUNTER 2021-06-26 15:10 | Emergency (ER) | payer OTHER, SELFPAY ==
[2021-06-26 15:13] VITALS: BP 152/78; PULSE 90; RESP 18; TEMP 36.6; O2SAT 90; BMI 51.6
--- NOTE | 2021-06-26 15:23 | ED_ITS ---
HPI - General Adult General Chief complaint: General Medical Stated complaint: Diff Breathing Time Seen by Provider: 06/26/21 15:23 Source: patient and EMS Mode of arrival: EMS Limitations: no limitations History of Present Illness HPI narrative: Patient is a 46 year old female presenting to the emergency department today with a low blood sugar. Patient states that she is a diabetic and took her medic ation like she was supposed to but then she only ate a bowl of cereal and jellybeans throughout the day. Patient denies any dizziness, lightheadedness, abdominal pain, nausea, vomiting, fever, chills, blurry vision, double vision, loss of vision, chest pain, difficulty breathing, shortness of breath, back pain, night sweats, pain with urination, increased urinary frequency, increased urinary urgency, blood in her urine or stool, syncope or a near syncopal episode, recent trauma or falls, bowel incontinence, bladder incontinence, bowel retention, bladder retention, or any other complaints at this time. Onset (ago): hour(s) Related Data Home Medications Medication Instructions Recorded Confirmed dulaglutide 4.5 mg/0.5 mL 4.5 mg SUBCUT QWEEK 03/24/21 06/23/21 subcutaneous pen injector (Trulicity) furosemide 20 mg tablet 1 tab PO DAILY 05/26/21 05/26/21 insulin lispro 100 unit/mL 10 unit SUBCUT BID 05/26/21 06/23/21 subcutaneous pen (Humalog KwikPen (U-100) Insulin) levothyroxine 75 mcg tablet 1 tab PO QAM 05/26/21 06/23/21 lisinopril 5 mg tablet 1 tab PO DAILY 05/26/21 06/23/21 loratadine 10 mg tablet 1 tab PO DAILY 05/26/21 05/26/21 metoprolol succinate 50 mg 1 tab PO DAILY 05/26/21 06/23/21 tablet,extended release 24 hr omeprazole 20 mg capsule,delayed 1 cap PO DAILY 05/26/21 05/26/21 release trazodone 50 mg tablet 1 tab PO BEDTIME PRN 05/26/21 05/26/21 medroxyprogesterone 5 mg tablet 2 tab PO DAILY 05/27/21 05/27/21 insulin glargine U-300 conc 300 45 unit SUBCUT ml 06/23/21 06/23/21 unit/mL (3 mL) subcutaneous pen (TouSWYFo Max U-300 SoloStar) Previous Rx's Medication Instructions Recorded albuterol sulfate 2.5 mg (3 mL) INHALATION QID PRN 11/17/20 #3 ml sertraline 50 mg tablet 150 mg PO DAILY #30 tab 11/17/20 atorvastatin 40 mg tablet 40 mg PO DAILY #30 tab 03/30/21 clonazepam 0.5 mg tablet 0.5 mg PO BID #0 tab 06/05/21 erythromycin 5 mg/gram (0.5 %) eye 1 cm OPHTHALMIC (EYE) BID #1 g 06/05/21 ointment lamotrigine 25 mg tablet 25 mg PO BEDTIME #15 tab 06/05/21 risperidone 0.5 mg tablet 0.5 mg PO BID PRN #14 tab 06/05/21 warfarin 5 mg tablet 10 mg PO DAILY #1 tab 06/05/21 metformin 1,000 mg tablet 1,000 mg PO BID 90 Days #180 tab 06/19/21 dapagliflozin 5 mg tablet (Farxiga) 5 mg PO DAILY #30 tab 06/23/21 flash glucose scanning reader #1 ea 06/23/21 (FreeStyle [place] 2 [place]) flash glucose sensor (FreeStyle #2 ea 06/23/21 [place] 2 Sensor) Allergies Allergy/AdvReac Type Severity Reaction Status Date / Time Penicillins [PENICILLINS] Allergy Intermediate HIVES Verified 06/23/21 14:14 egg [Egg] Allergy Mild SWELLING Verified 06/23/21 14:14 aspirin Allergy Unknown Unknown Verified 06/23/21 14:14 bee pollen [BEE STINGS] Allergy Unknown UNKNOWN Verified 06/23/21 14:14 lactose [LACTOSE] Allergy Unknown UNKNOWN Verified 06/23/21 14:14 latex [LATEX] Allergy Unknown HIVES Verified 06/23/21 14:14 oxycodone Allergy Unknown Unknown Verified 06/23/21 14:14 peanut [PEANUT] Allergy Unknown UNKNOWN Verified 06/23/21 14:14 penicillin V Allergy Unknown Unknown Verified 06/23/21 14:14 kiwi Allergy Anaphylaxis Verified 06/23/21 14:14 eggs,bees,latex,peanuts Allergy Unknown Unknown Uncoded 06/23/21 14:14 medical tape Allergy Unknown Unknown Uncoded 06/23/21 14:14 TAPE,PLASTIC Allergy Unknown RASH Uncoded 06/23/21 14:14 Review of Systems Constitutional: Constitutional: Reports no additional constitutional complaints, Denies chills, Denies fever(s) and Denies night sweats Eyes: Eyes: Reports no additional eye complaints, Denies blurry vision, Denies change in vision, Denies diplopia, Denies eye discharge, Denies loss of vision and Denies eye pain ENT: Denies dizziness Cardiovascular: Cardiovascular: Reports no additional cardiovascular complaints, Denies chest pain, Denies lightheadedness, Denies Loss of Consciousness and Denies dyspnea Respiratory: Respiratory: Reports no additional respiratory complaints and Denies dyspnea Gastrointestinal: Gastrointestinal: Reports no additional gastrointestinal complaints, Denies abdominal pain, Denies melena, Denies hematochezia, Denies change in bowel habits and Denies change in stool character Genitourinary: Genitourinary: Denies hematuria, Denies urinary frequency, Denies dysuria, Denies urinary incontinence, Denies urinary hesitancy and Denies urinary urgency Musculoskeletal: Musculoskeletal: Reports no additional musculoskeletal complaints, Denies numbness and Denies tingling Neurologic: Denies dizziness, Denies loss of vision, Denies numbness and Denies tingling Psychiatric: Psychiatric: Reports no additional psychiatric complaints Endocrine: Endocrine: Reports no additional endocrine complaints Hematologic/Lymphatic: Hematologic/Lymphatic: Reports no additional hematologic/lymphatic complaints Allergic/Immunologic: Allergic/Immunologic: Reports no additional allergic/immunologic complaints [facility] Past Medical History Attestation statement: The following information was validated with the patient. Source: old records reviewed Medical History Acute hyperglycemia Anxiety Asthma BMI 50.0-59.9, adult Cardiomyopathy CHF (congestive heart failure) Depression Diabetes mellitus, type 2 Diabetes type 2, uncontrolled DVT (deep vein thrombosis) in Essential hypertension Gallstones Hyperlipidemia LDL goal <70 Hypertension Hypothyroidism Irritable bowel Mood disorder Obesity due to excess calories ROGERIO (obstructive sleep apnea) Pancreatitis Proteinuria PTSD (post-traumatic stress disorder) PTSD (post-traumatic stress disorder) Pulmonary embolism Recurrent major depression Surgical History History of dental surgery History of open heart surgery Hx of hernia repair Hx of removal of cyst Family History Family History Paternal Grandmother Diabetes Social History Social History Household Members: Unknown / Unable to assess Housing: Apartment Housing Other:: Has [employer] twice a day. Do you presently have visiting nurse or other home services: Yes Unable to assess alcohol history related to: Refusing to respond Alcohol intake: current Alcohol intake frequency: holidays/special occasions only Patient Tobacco Use Status: Former Tobacco user Tobacco use type: Cigarette e-Cigarette/Vaping Use: Never Used Second Hand Smoke Exposure: Yes Substance Use Type: Marijuana Advance Directives: No Advance Directives Information Provided: Yes Patient : No service: No Sexual orientation: Lesbian/Good/Homosexual Physical Exam ED Vital Signs: Vital Signs - 24 hr 06/26/21 15:13 Temperature 98 F Pulse Rate 90 Respiratory Rate 18 Blood Pressure 152/78 H Pulse Oximetry 90 L BMI result Body Mass Index 51.6 Const General: cooperative, no acute distress, alert and awake Nutritional Appearance: well nourished Orientation/consciousness: patient oriented x3 Limitations: no limitations HENMT Head: Yes normal to inspection and Yes atraumatic Ears: hearing grossly normal bilaterally and external ears normal General nose exam: Normal external nose present, no nasal discharge noted and no epistaxis Face and sinus: Yes normal facial exam, No abrasion and No laceration Mouth: Normal oral and palatal mucosa present, no drooling and no muffled voice Eyes General: appearance normal, both eyes and all related structures Periorbital: periorbital findings normal Eyelids: Yes eyelids normal Conjunctivae: conjunctivae normal Pupils: Equal, round and reactive pupils present EOM: EOMs intact bilaterally Neck Neck: Yes normal visual inspection, Yes full ROM and Yes no lymphadenopathy Chest Chest palpation & inspection: normal inspection of the chest Resp Effort & Inspection: normal respiratory effort and able to speak in complete sentences Auscultation: clear to auscultation bilaterally Cardio Rate: regular rate Rhythm: regular rhythm GI Inspection: Yes normal to inspection Neuro General: patient oriented x3 and moves all extremities Cranial nerves: Yes Equal, round and reactive pupils present Cognition (Neuro): normal cognition Motor exam (neuro): 5/5 motor strength present throughout Sensory Exam: Normal double simultaneous stimulation for sensation Coordination: [id number] test normal Extrem General: Yes normal to inspection, Yes full ROM and Yes capillary refill normal Psych Appearance: grossly normal Mental Status: mental status grossly normal Affect: normal affect Attitude: cooperative Thought process: Normal thought process present Thought content: Normal thought content present Insight: Good insight present (Psych) Medical Decision Making MDM Narrative Medical decision making narrative: Patient is a 46 year old female presenting to the emergency department today with hypoglycemia. Patient's physical exam was unremarkable. Patient's initial point of care glucose was 36. Patient's blood work showed an elevated white blood cell count however, this is chronic for the patient. Patient's urine was negative. Patient's EKG was unremarkable. I explained my physical exam findings as well as all test results to the patient. I answered all questions asked by the patient. Patient was immediately given D50 and began to eat. She began to feel like her symptoms had resolved and stated that she wanted to leave. I stressed the importance of the patient taking her medication as prescribed. I stressed the importance of the patient following up with her primary care provider. I stressed the importance of the patient returning to the emergency department immediately if her symptoms were to worsen or if she were to develop any dizziness, shortness of breath, difficulty breathing, chest pain, blurry vision, loss of vision, nausea, vomiting, abdominal pain, fever, chills, back pain, or any other complaints. Patient verbalized agreement and understanding with this treatment plan and discharge. Differential Diagnosis Differential Diagnosis: hypogylcemia, general weakness Medical Records Medical records reviewed: Yes I reviewed the patient's medical records. Lab Data Lab results reviewed: Yes I reviewed the patient's lab results. Result diagrams: 06/26/21 16:12 06/26/21 16:12 Labs: Lab Results 06/26/21 06/26/21 06/26/21 Range/Units 15:15 15:36 16:12 WBC 15.4 H (4.8-10.8) X10*3/uL RBC 4.61 (4.20-5.50) X10*6/uL Hgb 10.8 L (12.0-16.0) g/dl Hct 37.4 (37.0-47.0) % MCV 81.1 (80.0-98.0) fL MCH 23.4 L (27.0-33.0) pg MCHC 28.9 L (31.0-35.0) g/dl RDW 20.9 H (11.0-16.0) % Plt Count 343 (160-400) X10*3/uL MPV 10.2 (9.4-12.3) fL Immature Gran % (Auto) 0.6 H (0.0-0.4) % Neut % (Auto) 80.6 H (45-73) % Lymph % (Auto) 12.7 L (20-40) % [place] % (Auto) 4.8 (2-11) % Eos % (Auto) 1.0 (0-4) % Baso % (Auto) 0.3 (0-2) % Lymph # (Auto) 2.0 (1.2-4.9) X10*3/uL [place] # (Auto) 0.7 (0.1-1.2) X10*3/uL Eos # (Auto) 0.2 (0.0-0.4) X10*3/uL Baso # (Auto) 0.1 (0.0-0.2) X10*3/uL Abs Immat Gran (auto) 0.09 H (0.00-0.03) X10*3/uL Absolute Neuts (auto) 12.4 H (2.0-8.3) x10*3/uL Absolute Nucleated RBC 0.100 H (0.0-0.012) X10*3/uL Nucleated RBC % (auto) 0.6 H (0.0-0.2) /100WBC VBG pH (7.32-7.43) VBG pCO2 mmHg VBG pO2 mmHg VBG HCO3 (22-26) mmol/L VBG O2 Saturation % VBG Base Excess mmol/L Sodium (135-145) mmol/L Potassium (3.3-5.1) mmol/L Chloride (96-108) mmol/L Carbon Dioxide (22-29) mmol/L Anion Gap (12-20) BUN (9-16) mg/dL Creatinine (0.5-1.4) mg/dL Estim Creat Clear Calc Estimated GFR POC Glucose 31 L* 142 H (60-115) mg/dL Random Glucose (60-115) mg/dL Calcium (8.4-10.2) mg/dL Total Bilirubin (0.0-1.0) mg/dL AST (5-31) U/L ALT (0-31) U/L Alkaline Phosphatase (39-117) U/L Ammonia (13-55) umol/L Total Protein (6.5-8.0) g/dL Albumin (3.5-5.0) g/dL Ethyl Alcohol mg/dL COVID-19 ([facility]ERICA) (Negative) COVID-19 Clin Com Influenza Type A () (Negative) Influenza Type B () (Negative) Influenza A & B Note 06/26/21 06/26/21 06/26/21 Range/Units 16:12 16:12 16:12 WBC (4.8-10.8) X10*3/uL RBC (4.20-5.50) X10*6/uL Hgb (12.0-16.0) g/dl Hct (37.0-47.0) % MCV (80.0-98.0) fL MCH (27.0-33.0) pg MCHC (31.0-35.0) g/dl RDW (11.0-16.0) % Plt Count (160-400) X10*3/uL MPV (9.4-12.3) fL Immature Gran % (Auto) (0.0-0.4) % Neut % (Auto) (45-73) % Lymph % (Auto) (20-40) % [place] % (Auto) (2-11) % Eos % (Auto) (0-4) % Baso % (Auto) (0-2) % Lymph # (Auto) (1.2-4.9) X10*3/uL [place] # (Auto) (0.1-1.2) X10*3/uL Eos # (Auto) (0.0-0.4) X10*3/uL Baso # (Auto) (0.0-0.2) X10*3/uL Abs Immat Gran (auto) (0.00-0.03) X10*3/uL Absolute Neuts (auto) (2.0-8.3) x10*3/uL Absolute Nucleated RBC (0.0-0.012) X10*3/uL Nucleated RBC % (auto) (0.0-0.2) /100WBC VBG pH (7.32-7.43) VBG pCO2 mmHg VBG pO2 mmHg VBG HCO3 (22-26) mmol/L VBG O2 Saturation % VBG Base Excess mmol/L Sodium 143 (135-145) mmol/L Potassium 3.4 (3.3-5.1) mmol/L Chloride 104 (96-108) mmol/L Carbon Dioxide 32 H (22-29) mmol/L Anion Gap 10 L (12-20) BUN 10 (9-16) mg/dL Creatinine 0.88 (0.5-1.4) mg/dL Estim Creat Clear Calc 120.5 Estimated GFR > 60 POC Glucose (60-115) mg/dL Random Glucose 118 H (60-115) mg/dL Calcium 8.8 (8.4-10.2) mg/dL Total Bilirubin 0.7 (0.0-1.0) mg/dL AST 37 H D (5-31) U/L ALT 77 H (0-31) U/L Alkaline Phosphatase 92 (39-117) U/L Ammonia 24 (13-55) umol/L Total Protein 6.7 (6.5-8.0) g/dL Albumin 3.8 (3.5-5.0) g/dL Ethyl Alcohol < 10 mg/dL COVID-19 ([facility]ERICA) (Negative) COVID-19 Clin Com Influenza Type A () (Negative) Influenza Type B () (Negative) Influenza A & B Note 06/26/21 06/26/21 06/26/21 Range/Units 16:13 16:29 16:30 WBC (4.8-10.8) X10*3/uL RBC (4.20-5.50) X10*6/uL Hgb (12.0-16.0) g/dl Hct (37.0-47.0) % MCV (80.0-98.0) fL MCH (27.0-33.0) pg MCHC (31.0-35.0) g/dl RDW (11.0-16.0) % Plt Count (160-400) X10*3/uL MPV (9.4-12.3) fL Immature Gran % (Auto) (0.0-0.4) % Neut % (Auto) (45-73) % Lymph % (Auto) (20-40) % [place] % (Auto) (2-11) % Eos % (Auto) (0-4) % Baso % (Auto) (0-2) % Lymph # (Auto) (1.2-4.9) X10*3/uL [place] # (Auto) (0.1-1.2) X10*3/uL Eos # (Auto) (0.0-0.4) X10*3/uL Baso # (Auto) (0.0-0.2) X10*3/uL Abs Immat Gran (auto) (0.00-0.03) X10*3/uL Absolute Neuts (auto) (2.0-8.3) x10*3/uL Absolute Nucleated RBC (0.0-0.012) X10*3/uL Nucleated RBC % (auto) (0.0-0.2) /100WBC VBG pH 7.33 (7.32-7.43) VBG pCO2 63 mmHg VBG pO2 43 mmHg VBG HCO3 33 H (22-26) mmol/L VBG O2 Saturation 63.0 % VBG Base Excess 5.7 mmol/L Sodium (135-145) mmol/L Potassium (3.3-5.1) mmol/L Chloride (96-108) mmol/L Carbon Dioxide (22-29) mmol/L Anion Gap (12-20) BUN (9-16) mg/dL Creatinine (0.5-1.4) mg/dL Estim Creat Clear Calc Estimated GFR POC Glucose (60-115) mg/dL Random Glucose (60-115) mg/dL Calcium (8.4-10.2) mg/dL Total Bilirubin (0.0-1.0) mg/dL AST (5-31) U/L ALT (0-31) U/L Alkaline Phosphatase (39-117) U/L Ammonia (13-55) umol/L Total Protein (6.5-8.0) g/dL Albumin (3.5-5.0) g/dL Ethyl Alcohol mg/dL COVID-19 ([facility]ERICA) Negative (Negative) COVID-19 Clin Com See Note Influenza Type A () Negative (Negative) Influenza Type B () Negative (Negative) Influenza A & B Note See Note 06/26/21 Range/Units 17:11 WBC (4.8-10.8) X10*3/uL RBC (4.20-5.50) X10*6/uL Hgb (12.0-16.0) g/dl Hct (37.0-47.0) % MCV (80.0-98.0) fL MCH (27.0-33.0) pg MCHC (31.0-35.0) g/dl RDW (11.0-16.0) % Plt Count (160-400) X10*3/uL MPV (9.4-12.3) fL Immature Gran % (Auto) (0.0-0.4) % Neut % (Auto) (45-73) % Lymph % (Auto) (20-40) % [place] % (Auto) (2-11) % Eos % (Auto) (0-4) % Baso % (Auto) (0-2) % Lymph # (Auto) (1.2-4.9) X10*3/uL [place] # (Auto) (0.1-1.2) X10*3/uL Eos # (Auto) (0.0-0.4) X10*3/uL Baso # (Auto) (0.0-0.2) X10*3/uL Abs Immat Gran (auto) (0.00-0.03) X10*3/uL Absolute Neuts (auto) (2.0-8.3) x10*3/uL Absolute Nucleated RBC (0.0-0.012) X10*3/uL Nucleated RBC % (auto) (0.0-0.2) /100WBC VBG pH (7.32-7.43) VBG pCO2 mmHg VBG pO2 mmHg VBG HCO3 (22-26) mmol/L VBG O2 Saturation % VBG Base Excess mmol/L Sodium (135-145) mmol/L Potassium (3.3-5.1) mmol/L Chloride (96-108) mmol/L Carbon Dioxide (22-29) mmol/L Anion Gap (12-20) BUN (9-16) mg/dL Creatinine (0.5-1.4) mg/dL Estim Creat Clear Calc Estimated GFR POC Glucose 83 (60-115) mg/dL Random Glucose (60-115) mg/dL Calcium (8.4-10.2) mg/dL Total Bilirubin (0.0-1.0) mg/dL AST (5-31) U/L ALT (0-31) U/L Alkaline Phosphatase (39-117) U/L Ammonia (13-55) umol/L Total Protein (6.5-8.0) g/dL Albumin (3.5-5.0) g/dL Ethyl Alcohol mg/dL COVID-19 ([facility]ICA) (Negative) COVID-19 Clin Com Influenza Type A () (Negative) Influenza Type B () (Negative) Influenza A & B Note ECG Data Attestation: I personally reviewed and interpreted this ECG as follows: Prior ECG tracings: available for review Interpretation: Vent. Rate: 083 BPM ? ? Atrial Rate: 083 BPM P-R Int: 172 ms? QRS Dur: 084 ms QT Int: 408 ms ? ? ? P-R-T Axes: 054 102 119 degrees QTc Int: 479 ms ? Normal sinus rhythm Rightward axis Possible Anterior infarct , age undetermined Abnormal ECG When compared with ECG of 22-JUN-2021 19:54, No significant change was found Discharge Plan Discharge Clinical Impression: Hypoglycemia, Diabetes mellitus, type 2 Patient Disposition: Home, Self-Care Instructions: What to Do if Your Blood Sugar is Low (ED) Additional Instructions: Follow up with your primary care provider. Return to the emergency department immediately if your symptoms worsen or if you develop any dizziness, shortness of breath, difficulty breathing, chest pain, blurry vision, loss of vision, nausea, vomiting, abdominal pain, fever, chills, back pain, or any other compla ints. Prescriptions: No Action atorvastatin 40 mg tablet 40 mg PO DAILY Qty: 30 6RF metformin 1,000 mg tablet 1,000 mg PO BID 90 Days Qty: 180 1RF albuterol sulfate 2.5 mg /3 mL (0.083 %) Solution For Nebulization 2.5 mg inhalation QID PRN (Reason: Allergic Reaction) Qty: 3 0RF sertraline 50 mg Tablet 150 mg PO DAILY Qty: 30 0RF Trulicity 4.5 mg/0.5 mL pen injector 4.5 mg subcut QWEEK 0RF furosemide 20 mg tablet 1 tab PO DAILY 0RF insulin lispro [Humalog KwikPen Insulin] 100 unit/mL insulin pen 10 unit subcut BID 0RF lisinopril 5 mg tablet 1 tab PO DAILY 0RF levothyroxine 75 mcg tablet 1 tab PO QAM 0RF loratadine 10 mg tablet 1 tab PO DAILY 0RF metoprolol succinate 50 mg tablet extended release 24 hr 1 tab PO DAILY 0RF omeprazole 20 mg capsule,delayed release(DR/EC) 1 cap PO DAILY 0RF trazodone 50 mg tablet 1 tab PO BEDTIME PRN (Reason: insomnia) 0RF medroxyprogesterone 5 mg tablet 2 tab PO DAILY 0RF clonazepam 0.5 mg Tablet 0.5 mg PO BID Qty: 0 0RF lamotrigine 25 mg Tablet 25 mg PO BEDTIME Qty: 15 1RF erythromycin 5 mg/gram (0.5 %) Ointment 1 cm ophthalmic (eye) BID Qty: 1 0RF risperidone 0.5 mg Tablet 0.5 mg PO BID PRN (Reason: PTSD sx, grounding sx) Qty: 14 2RF warfarin 5 mg tablet 10 mg PO DAILY Qty: 1 0RF Toujeo Max U-300 SoloStar 300 unit/mL (3 mL) insulin pen 45 unit subcut 0RF Farxiga 5 mg tablet 5 mg PO DAILY Qty: 30 6RF (DME) FreeStyle [place] 2 [place] Misc See Rx Instructions .ROUTE .MEDSUPPLY Qty: 1 0RF Rx Instructions: As directed (DME) FreeStyle [place] 2 Sensor Kit See Rx Instructions .ROUTE .MEDSUPPLY Qty: 2 11RF Rx Instructions: As directed every 2 weeks Referrals: Maria Guadalupe Severino MD [Primary Care Provider] - 2 days Interventions: ED Discharge Assessment Last Done: 06/26/21 17:24 Discharge Date/Time: 06/26/21 17:25 Print Language: Bulgarian
--- NOTE | 2021-06-26 15:29 | ECG_ITS ---
Test Reason : AMS Blood Pressure : / mmHG Vent. Rate : 083 BPM Atrial Rate : 083 BPM P-R Int : 172 ms QRS Dur : 084 ms QT Int : 408 ms P-R-T Axes : 054 102 119 degrees QTc Int : 479 ms Normal sinus rhythm Rightward axis Possible Anterior infarct , age undetermined Nonspecific ST and T wave abnormality Abnormal ECG When compared with ECG of 22-JUN-2021 19:54, No significant change was found Referred By: Ariadne Jenkins Electronically Signed By:TATE GEORGE
[2021-06-26 15:39] LABS: Glucose, Whole Blood 31 mg/dL (60-115)
[2021-06-26 15:39] LABS: Glucose, Whole Blood 142 mg/dL (60-115)
[2021-06-26 16:18] LABS: MANUAL DIFF FLAG NO
[2021-06-26 16:19] LABS: Venous Blood Gas Refer to POC result
[2021-06-26 16:21] LABS: VBG Base Excess 5.7 mmol/L; VBG HCO3 33 mmol/L (22-26); VBG pCO2 63 mmHg; VBG pH 7.33 (7.32-7.43); VBG pO2 43 mmHg
[2021-06-26 16:25] LABS: Basophils Absolute Auto 0.1 X10*3/uL (0.0-0.2); Basophils Percent Auto 0.3 % (0-2); Eosinophils Absolute Auto 0.2 X10*3/uL (0.0-0.4); Hematocrit 37.4 % (37.0-47.0); Hemoglobin 10.8 g/dl (12.0-16.0); Imm Gran Abs Auto 0.09 X10*3/uL (0.00-0.03); Imm Gran Pct Auto 0.6 % (0.0-0.4); Lymphocytes Percent Auto 12.7 % (20-40); Mean Corpuscular HGB Conc 28.9 g/dl (31.0-35.0); Mean Corpuscular Hemoglobin 23.4 pg (27.0-33.0); Mean Corpuscular Volume 81.1 fL (80.0-98.0); Mean Platelet Volume 10.2 fL (9.4-12.3); Monocytes Absolute Auto 0.7 X10*3/uL (0.1-1.2); Monocytes Percent Auto 4.8 % (2-11); NRBC Pct Auto 0.6 /100WBC (0.0-0.2); Neutrophils Absolute Auto 12.4 x10*3/uL (2.0-8.3); Neutrophils Percent Auto 80.6 % (45-73); Platelet Count 343 X10*3/uL (160-400); Red Blood Count 4.61 X10*6/uL (4.20-5.50); Red Cell Distribution Width 20.9 % (11.0-16.0); White Blood Count 15.4 X10*3/uL (4.8-10.8)
[2021-06-26 16:26] LABS: Ammonia 24 umol/L (13-55)
[2021-06-26 16:35] LABS: Ethanol < 10 mg/dL
[2021-06-26 16:39] LABS: Alanine Aminotransferase 77 U/L (0-31); Albumin Level 3.8 g/dL (3.5-5.0); Alkaline Phosphatase 92 U/L (39-117); Anion Gap 10 (12-20); Aspartate Amino Transferase 37 U/L (5-31); Bilirubin Total 0.7 mg/dL (0.0-1.0); Blood Urea Nitrogen 10 mg/dL (9-16); Calcium 8.8 mg/dL (8.4-10.2); Carbon Dioxide 32 mmol/L (22-29); Chloride 104 mmol/L (96-108); Creatinine Clr Calc Pharmacy 120.5; Estimated Glomerular Filt Rate > 60; Glucose Random 118 mg/dL (60-115); Potassium 3.4 mmol/L (3.3-5.1); Sodium 143 mmol/L (135-145); Total Protein 6.7 g/dL (6.5-8.0)
[2021-06-26 16:50] LABS: Influenza A Negative (Negative); Influenza B2 Negative (Negative)
[2021-06-26 16:50] LABS: COVID-19 Test Negative (Negative); IDNOW Serial# 16C4AD1C
[2021-06-26 17:17] LABS: Glucose, Whole Blood 83 mg/dL (60-115)
== END 2021-06-26 17:25 | disposition home or self-care (01) ==
PROVIDERS: Physician Assistant Medical; Emergency Provider Emergency Medicine; PCP Internal Medicine
DX: E11.649 Type 2 diabetes mellitus with hypoglycemia without coma (principal); Z20.822 Contact with and (suspected) exposure to COVID-19; I10 Essential (primary) hypertension; E78.5 Hyperlipidemia, unspecified; Z86.718 Personal history of other venous thrombosis and embolism; Z79.4 Long term (current) use of insulin; Z79.02 Long term (current) use of antithrombotics/antiplatelets; Z79.01 Long term (current) use of anticoagulants; Z79.899 Other long term (current) drug therapy
CPT/HCPCS: 36415; 80053; 82077; 82140; 82803; 82947; 85025; 87502; 87635; 93005; 96374; 99283; 99284

== ENCOUNTER 2021-06-29 18:49 | Emergency (ER) | payer OTHER, SELFPAY ==
[2021-06-29 19:11] VITALS: BP 140/96; BP 143/77; PULSE 91; PULSE 95; RESP 18; TEMP 520.1; TEMP 968.2; O2SAT 3; O2SAT 96; BMI 58.3
--- NOTE | 2021-06-29 19:27 | ECG_ITS ---
Test Reason : CHEST PAIN Blood Pressure : / mmHG Vent. Rate : 080 BPM Atrial Rate : 080 BPM P-R Int : 182 ms QRS Dur : 078 ms QT Int : 424 ms P-R-T Axes : 055 104 090 degrees QTc Int : 489 ms Normal sinus rhythm Rightward axis Low voltage QRS Borderline ECG When compared with ECG of 26-JUN-2021 15:46, Nonspecific T wave abnormality, improved in Lateral leads Referred By: Shannon Kaur Electronically Signed By:MATTIE FORREST MD
--- NOTE | 2021-06-29 20:37 | ED.CHESTPAIN ---
HPI - Chest Pain General Chief Complaint: Chest Pain Stated Complaint: CHEST PAIN X'S 20MINUTES W/SOB AND PROD COUGH Time Seen by Provider: 06/29/21 19:07 Source: patient and EMS Mode of arrival: EMS Limitations: no limitations History of Present Illness HPI narrative: Patient comes to the emergency room from a half-way. According to the patient she is here because she has been having asthma exacerbations. Earlier today, she told the triage nurse that she has been having chest pain. Patient denies chest pain. Patient is oxygen dependent, 3 L at home. Related Data Home Medications Medication Instructions Recorded Confirmed dulaglutide 4.5 mg/0.5 mL 4.5 mg SUBCUT QWEEK 03/24/21 06/23/21 subcutaneous pen injector (Trulicity) furosemide 20 mg tablet 1 tab PO DAILY 05/26/21 05/26/21 insulin lispro 100 unit/mL 10 unit SUBCUT BID 05/26/21 06/23/21 subcutaneous pen (Humalog KwikPen (U-100) Insulin) levothyroxine 75 mcg tablet 1 tab PO QAM 05/26/21 06/23/21 lisinopril 5 mg tablet 1 tab PO DAILY 05/26/21 06/23/21 loratadine 10 mg tablet 1 tab PO DAILY 05/26/21 05/26/21 metoprolol succinate 50 mg 1 tab PO DAILY 05/26/21 06/23/21 tablet,extended release 24 hr omeprazole 20 mg capsule,delayed 1 cap PO DAILY 05/26/21 05/26/21 release trazodone 50 mg tablet 1 tab PO BEDTIME PRN 05/26/21 05/26/21 medroxyprogesterone 5 mg tablet 2 tab PO DAILY 05/27/21 05/27/21 insulin glargine U-300 conc 300 45 unit SUBCUT ml 06/23/21 06/23/21 unit/mL (3 mL) subcutaneous pen (Toujeo Max U-300 SoloStar) Previous Rx's Medication Instructions Recorded albuterol sulfate 2.5 mg (3 mL) INHALATION QID PRN 11/17/20 #3 ml sertraline 50 mg tablet 150 mg PO DAILY #30 tab 11/17/20 atorvastatin 40 mg tablet 40 mg PO DAILY #30 tab 03/30/21 clonazepam 0.5 mg tablet 0.5 mg PO BID #0 tab 06/05/21 erythromycin 5 mg/gram (0.5 %) eye 1 cm OPHTHALMIC (EYE) BID #1 g 06/05/21 ointment lamotrigine 25 mg tablet 25 mg PO BEDTIME #15 tab 06/05/21 risperidone 0.5 mg tablet 0.5 mg PO BID PRN #14 tab 06/05/21 warfarin 5 mg tablet 10 mg PO DAILY #1 tab 06/05/21 metformin 1,000 mg tablet 1,000 mg PO BID 90 Days #180 tab 06/19/21 dapagliflozin 5 mg tablet (Farxiga) 5 mg PO DAILY #30 tab 06/23/21 flash glucose scanning reader #1 ea 06/23/21 (motionID technologiesStyle [place] 2 [place]) flash glucose sensor (FreeStyle #2 ea 06/23/21 [place] 2 Sensor) Allergies Allergy/AdvReac Type Severity Reaction Status Date / Time Penicillins [PENICILLINS] Allergy Intermediate HIVES Verified 06/23/21 14:14 egg [Egg] Allergy Mild SWELLING Verified 06/23/21 14:14 aspirin Allergy Unknown Unknown Verified 06/23/21 14:14 bee pollen [BEE STINGS] Allergy Unknown UNKNOWN Verified 06/23/21 14:14 lactose [LACTOSE] Allergy Unknown UNKNOWN Verified 06/23/21 14:14 latex [LATEX] Allergy Unknown HIVES Verified 06/23/21 14:14 oxycodone Allergy Unknown Unknown Verified 06/23/21 14:14 peanut [PEANUT] Allergy Unknown UNKNOWN Verified 06/23/21 14:14 penicillin V Allergy Unknown Unknown Verified 06/23/21 14:14 kiwi Allergy Anaphylaxis Verified 06/23/21 14:14 eggs,bees,latex,peanuts Allergy Unknown Unknown Uncoded 06/23/21 14:14 medical tape Allergy Unknown Unknown Uncoded 06/23/21 14:14 TAPE,PLASTIC Allergy Unknown RASH Uncoded 06/23/21 14:14 Review of Systems Review of Systems: Constitutional : No Weight loss, No Fever, No Chills, No Night Sweats, No Fatigue, No Malaise ENT/Mouth : No Hearing loss, No Ear Pain, No Nasal Congestion, No Sinus Pain, No Hoarseness, No sore throat, No Rhinorrhea, No Swallowing Difficulty Eyes: No Eye Pain, No Swelling, No Redness, No Foreign Body, No Discharge, No Vision Changes Cardiovascular : Earlier today patient complained of chest pain but denies chest pain now, no palpitations Respiratory : Complaining of cough, wheezing Gastrointestinal : No Nausea, No Vomiting, No Diarrhea, No Constipation, No abdominal Pain, No Hematochezia, No Melena Genitourinary : no irregular bleeding, No Dysuria, No Urinary Frequency, No Hematuria, No Urinary Incontinence, No Urgency, No Flank Pain, No Urinary Flow Changes, No Hesitancy Musculoskeletal : No joint pain, No Myalgias, No Joint Swelling Skin : No Skin Lesions, No rash Neuro : No Weakness, No Numbness, No Paresthesias, No Loss of Consciousness, No Dizziness, No Headache Psych : No Anxiety/Panic, No Depression, No SI/HI/AH/VH, No Social Issues, Heme/Lymph: No Bruising, No Bleeding,No Lymphadenopathy Endocrine : No Polyuria, No Polydipsia, No Temperature Intolerance PMFSH Past Medical History Medical History Acute hyperglycemia Anxiety Asthma BMI 50.0-59.9, adult Cardiomyopathy CHF (congestive heart failure) Depression Diabetes mellitus, type 2 Diabetes type 2, uncontrolled DVT (deep vein thrombosis) in Essential hypertension Gallstones Hyperlipidemia LDL goal <70 Hypertension Hypothyroidism Irritable bowel Mood disorder Obesity due to excess calories ROGERIO (obstructive sleep apnea) Pancreatitis Proteinuria PTSD (post-traumatic stress disorder) PTSD (post-traumatic stress disorder) Pulmonary embolism Recurrent major depression Surgical History History of dental surgery History of open heart surgery Hx of hernia repair Hx of removal of cyst Family History Family History Paternal Grandmother Diabetes Social History Social History Household Members: Unknown / Unable to assess Housing: Apartment Housing Other:: 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 Do you presently have visiting nurse or other home services: Yes Unable to assess alcohol history related to: Refusing to respond Alcohol intake: current Alcohol intake frequency: holidays/special occasions only Patient Tobacco Use Status: Former Tobacco user Tobacco use type: Cigarette e-Cigarette/Vaping Use: Never Used Second Hand Smoke Exposure: Yes Substance Use Type: Marijuana Advance Directives: No Advance Directives Information Provided: No Patient : No service: No Sexual orientation: Lesbian/Good/Homosexual Physical Exam Vital Signs: Vital Signs: Last Vital Signs Temp 968.2 F H 06/29/21 19:11 Pulse 91 06/29/21 19:11 Resp 18 06/29/21 19:11 BP 143/77 H 06/29/21 19:11 Pulse Ox 96 06/29/21 19:11 Oxygen Flow Rate 3 06/29/21 19:11 BMI result Body Mass Index 58.3 Const: Other: Appearance: Alert. Oriented X3. No acute distress. Eyes: Pupils equal, round and reactive to light. ENT: Pharynx normal. Neck: Normal inspection. Neck supple. No lymph nodes noted. No crepitus CVS: Normal heart rate and rhythm. Pulses normal. Normal S1 and S2 Respiratory: No respiratory distress. Mild bilateral crackles, but there movement, oxygen saturation 97% on nasal cannula at 2 L (home dose) Abdomen: Soft and nontender. No rigidity. No distention. Skin: Skin warm and dry. Normal skin color. Normal skin turgor. Extremities: No lower extremity edema. No Lacerations. No Rash Neuro: Oriented X 3. No motor deficit. No sensory deficit. Moving all extremities. No slurred speech. CN 2 through 12 grossly intact Psych: calm, cooperative, normal affect Course Course Course Narrative: Of patient's labs are pending, EKG pending Sign-out given to Dr. Floyd Discharge Plan Discharge Clinical Impression: Acute dyspnea Patient Disposition: Still a Patient Prescriptions: No Action atorvastatin 40 mg tablet 40 mg PO DAILY Qty: 30 6RF metformin 1,000 mg tablet 1,000 mg PO BID 90 Days Qty: 180 1RF albuterol sulfate 2.5 mg /3 mL (0.083 %) Solution For Nebulization 2.5 mg inhalation QID PRN (Reason: Allergic Reaction) Qty: 3 0RF sertraline 50 mg Tablet 150 mg PO DAILY Qty: 30 0RF Trulicity 4.5 mg/0.5 mL pen injector 4.5 mg subcut QWEEK 0RF furosemide 20 mg tablet 1 tab PO DAILY 0RF insulin lispro [Humalog KwikPen Insulin] 100 unit/mL insulin pen 10 unit subcut BID 0RF lisinopril 5 mg tablet 1 tab PO DAILY 0RF levothyroxine 75 mcg tablet 1 tab PO QAM 0RF loratadine 10 mg tablet 1 tab PO DAILY 0RF metoprolol succinate 50 mg tablet extended release 24 hr 1 tab PO DAILY 0RF omeprazole 20 mg capsule,delayed release(DR/EC) 1 cap PO DAILY 0RF trazodone 50 mg tablet 1 tab PO BEDTIME PRN (Reason: insomnia) 0RF medroxyprogesterone 5 mg tablet 2 tab PO DAILY 0RF clonazepam 0.5 mg Tablet 0.5 mg PO BID Qty: 0 0RF lamotrigine 25 mg Tablet 25 mg PO BEDTIME Qty: 15 1RF erythromycin 5 mg/gram (0.5 %) Ointment 1 cm ophthalmic (eye) BID Qty: 1 0RF risperidone 0.5 mg Tablet 0.5 mg PO BID PRN (Reason: PTSD sx, grounding sx) Qty: 14 2RF warfarin 5 mg tablet 10 mg PO DAILY Qty: 1 0RF Toujeo Max U-300 SoloStar 300 unit/mL (3 mL) insulin pen 45 unit subcut 0RF Farxiga 5 mg tablet 5 mg PO DAILY Qty: 30 6RF (DME) FreeStyle [place] 2 [place] Misc See Rx Instructions .ROUTE .MEDSUPPLY Qty: 1 0RF Rx Instructions: As directed (DME) FreeStyle [place] 2 Sensor Kit See Rx Instructions .ROUTE .MEDSUPPLY Qty: 2 11RF Rx Instructions: As directed every 2 weeks
[2021-06-29 21:41] LABS: MANUAL DIFF FLAG NO
[2021-06-29 21:44] LABS: Basophils Absolute Auto 0.1 X10*3/uL (0.0-0.2); Basophils Percent Auto 0.5 % (0-2); Eosinophils Absolute Auto 0.2 X10*3/uL (0.0-0.4); Eosinophils Percent Auto 1.2 % (0-4); Hematocrit 35.9 % (37.0-47.0); Hemoglobin 10.4 g/dl (12.0-16.0); Imm Gran Abs Auto 0.06 X10*3/uL (0.00-0.03); Imm Gran Pct Auto 0.5 % (0.0-0.4); Lymphocytes Absolute Auto 2.4 X10*3/uL (1.2-4.9); Mean Corpuscular Hemoglobin 23.3 pg (27.0-33.0); Mean Corpuscular Volume 80.5 fL (80.0-98.0); Mean Platelet Volume 10.3 fL (9.4-12.3); Monocytes Absolute Auto 0.6 X10*3/uL (0.1-1.2); Monocytes Percent Auto 4.7 % (2-11); NRBC Pct Auto 0.7 /100WBC (0.0-0.2); Neutrophils Absolute Auto 8.8 x10*3/uL (2.0-8.3); Neutrophils Percent Auto 73.1 % (45-73); Platelet Count 350 X10*3/uL (160-400); Red Blood Count 4.46 X10*6/uL (4.20-5.50)
[2021-06-29 21:50] LABS: INTERNATIONAL NORM RATIO 3.4 (0.9-1.1); Prothrombin Time 39.9 SEC (9.9-13.0)
[2021-06-29 22:01] LABS: COVID-19 Test Negative (Negative)
[2021-06-29 22:06] LABS: Anion Gap 8 (12-20); Blood Urea Nitrogen 12 mg/dL (9-16); Calcium 8.6 mg/dL (8.4-10.2); Carbon Dioxide 34 mmol/L (22-29); Chloride 102 mmol/L (96-108); Creatinine Clr Calc Pharmacy 134.7; Estimated Glomerular Filt Rate > 60; Glucose Random 221 mg/dL (60-115); Potassium 4.1 mmol/L (3.3-5.1); Sodium 140 mmol/L (135-145)
[2021-06-29 22:10] LABS: B Type Natriuretic Peptide 182 pg/mL (<100); Troponin-I High Sensitivity < 3.5 ng/L (<3.5-17.0)
[2021-06-30 00:10] VITALS: BP 135/78; PULSE 90; RESP 15; TEMP 36.9; O2SAT 94
--- NOTE | 2021-06-30 00:42 | PC.NURSE ---
Reviewed discharge instructions with pt and Ems. Pt discharged home.
== END 2021-06-30 00:55 | disposition home or self-care (01) ==
PROVIDERS: Emergency Medicine; Emergency Provider Emergency Medicine Emergency Medical Services
DX: R06.00 Dyspnea, unspecified (principal); R06.02 Shortness of breath; Z20.822 Contact with and (suspected) exposure to COVID-19; E11.9 Type 2 diabetes mellitus without complications; I10 Essential (primary) hypertension; E78.5 Hyperlipidemia, unspecified; Z86.718 Personal history of other venous thrombosis and embolism; Z99.81 Dependence on supplemental oxygen; Z79.4 Long term (current) use of insulin; Z79.02 Long term (current) use of antithrombotics/antiplatelets; Z79.899 Other long term (current) drug therapy; Z79.01 Long term (current) use of anticoagulants; Z87.891 Personal history of nicotine dependence
CPT/HCPCS: 36415; 80048; 83880; 84484; 85025; 85610; 87635; 93005; 99283; 99284

== ENCOUNTER 2021-07-12 17:18 | Emergency (ER) | payer OTHER, SELFPAY ==
--- NOTE | ~2021-07-12 | XR_ITS ---
EXAMINATION: XR CHEST CLINICAL INFORMATION: Cough COMPARISON: 06/22/2021 TECHNIQUE: Frontal view of the chest was obtained. FINDINGS: The lungs remain hypoinflated with an enlarged cardiac silhouette status post median sternotomy. There is prominence of the central vessels and increasing vascular markings when compared to the previous study suggesting central vascular congestion and/or mild interstitial edema. No definite consolidation or effusion. XR/XR chest 1V IMPRESSION: Central vascular congestion with possible mild interstitial edema. Exam limited by hypoinflation.
[2021-07-12 17:48] VITALS: BP 100/64; BP 110/72; PULSE 100; RESP 28; TEMP 37.4; O2SAT 95; O2SAT 97; BMI 59.2
[2021-07-12 17:55] VITALS: BP 98/51; PULSE 93; RESP 16; TEMP 37.2; O2SAT 95
[2021-07-12 18:05] LABS: Appearance Urine CLEAR; Color Urine YELLOW; Glucose Urine UA >=1000 MG/DL (NEG); Leukocyte Esterase Urine NEG (NEG); Nitrite Urine NEG (NEG); PH 5.5 (5.0-8.0); Urine Blood NEG (NEG); Urine Ketones NEG (NEG); Urine Protein NEG (NEG-TRACE)
[2021-07-12 18:14] LABS: RBC Urine 0-2 /HPF (0); WBC Urine 0-2 /HPF (0-4)
[2021-07-12 18:15] LABS: Amorphous Sediment Urine TRACE /LPF; Bacteria Urine 1+ /LPF; Mucus Urine TRACE /LPF; Squamous Epithelial Cell Urine 1+ /LPF
[2021-07-12 18:41] LABS: Influenza A PCR NEGATIVE (Negative); Influenza B PCR NEGATIVE (Negative); Resp Syncy Virus RNA Qual PCR NEGATIVE (Negative); SARS COV2 PCR INHOUSE NEGATIVE (Negative)
--- NOTE | 2021-07-12 19:00 | ED_ITS ---
HPI - URI/Sore Throat General Chief Complaint: Upper Respiratory Symptoms Stated Complaint: diff breathing Time Seen by Provider: 07/12/21 18:36 Source: patient Mode of arrival: EMS Limitations: no limitations History of Present Illness HPI Narrative: 46-year-old female who presents emergency department for evaluation of cough chest pain shortness of breath. The patient states that over the past 2 days she has been having chest pain. She points to her sternum when asked to localize the pain. The pain came on gradually but is gotten worse. She describes the pain is in sharp, intermittent pain will last 20 minutes. She states the pain improves if she gives herself a nebulizer treatment. The pain is 8/10 at its worst. She does feel short of breath and has dyspnea on exertion. She states that she has a cough which is probably active of thin, white sputum. She denied fever, chills, rhinorrhea, sore throat, abdominal pain, she denies change in bowel movements, dark tarry stools or bright red blood per rectum. MD elicited complaint: cough and other (Chest pain) Pertinent past history: asthma Onset (ago): day(s) (2) Consistency: constant Severity: severe Pain scale (0-10): 8 Description of mucous: clear and other (Thin mucus) Able to tolerate fluids by mouth: Yes Relieving factors: nothing and other (Nebulizer treatment) Associated symptoms: cough, chest pain and shortness of breath Treatments prior to arrival: other (Nebulizer treatment) Related Data Home Medications Medication Instructions Recorded Confirmed dulaglutide 4.5 mg/0.5 mL 4.5 mg SUBCUT QWEEK 03/24/21 06/23/21 subcutaneous pen injector (Trulicity) furosemide 20 mg tablet 1 tab PO DAILY 05/26/21 05/26/21 insulin lispro 100 unit/mL 10 unit SUBCUT BID 05/26/21 06/23/21 subcutaneous pen (Humalog KwikPen (U-100) Insulin) levothyroxine 75 mcg tablet 1 tab PO QAM 05/26/21 06/23/21 lisinopril 5 mg tablet 1 tab PO DAILY 05/26/21 06/23/21 loratadine 10 mg tablet 1 tab PO DAILY 05/26/21 05/26/21 metoprolol succinate 50 mg 1 tab PO DAILY 05/26/21 06/23/21 tablet,extended release 24 hr omeprazole 20 mg capsule,delayed 1 cap PO DAILY 05/26/21 05/26/21 release trazodone 50 mg tablet 1 tab PO BEDTIME PRN 05/26/21 05/26/21 medroxyprogesterone 5 mg tablet 2 tab PO DAILY 05/27/21 05/27/21 insulin glargine U-300 conc 300 45 unit SUBCUT ml 06/23/21 06/23/21 unit/mL (3 mL) subcutaneous pen (Toujeo Max U-300 SoloStar) Previous Rx's Medication Instructions Recorded albuterol sulfate 2.5 mg (3 mL) INHALATION QID PRN 11/17/20 #3 ml sertraline 50 mg tablet 150 mg PO DAILY #30 tab 11/17/20 atorvastatin 40 mg tablet 40 mg PO DAILY #30 tab 03/30/21 clonazepam 0.5 mg tablet 0.5 mg PO BID #0 tab 06/05/21 erythromycin 5 mg/gram (0.5 %) eye 1 cm OPHTHALMIC (EYE) BID #1 g 06/05/21 ointment lamotrigine 25 mg tablet 25 mg PO BEDTIME #15 tab 06/05/21 risperidone 0.5 mg tablet 0.5 mg PO BID PRN #14 tab 06/05/21 warfarin 5 mg tablet 10 mg PO DAILY #1 tab 06/05/21 metformin 1,000 mg tablet 1,000 mg PO BID 90 Days #180 tab 06/19/21 dapagliflozin 5 mg tablet (Farxiga) 5 mg PO DAILY #30 tab 06/23/21 flash glucose scanning reader #1 ea 06/23/21 (FreeStyle [place] 2 [place]) flash glucose sensor (FreeStyle #2 ea 06/23/21 [place] 2 Sensor) prednisone 20 mg tablet 60 mg PO DAILY 5 Days #15 tab 07/12/21 Allergies Allergy/AdvReac Type Severity Reaction Status Date / Time Penicillins [PENICILLINS] Allergy Intermediate HIVES Verified 06/23/21 14:14 egg [Egg] Allergy Mild SWELLING Verified 06/23/21 14:14 aspirin Allergy Unknown Unknown Verified 06/23/21 14:14 bee pollen [BEE STINGS] Allergy Unknown UNKNOWN Verified 06/23/21 14:14 lactose [LACTOSE] Allergy Unknown UNKNOWN Verified 06/23/21 14:14 latex [LATEX] Allergy Unknown HIVES Verified 06/23/21 14:14 oxycodone Allergy Unknown Unknown Verified 06/23/21 14:14 peanut [PEANUT] Allergy Unknown UNKNOWN Verified 06/23/21 14:14 penicillin V Allergy Unknown Unknown Verified 06/23/21 14:14 kiwi Allergy Anaphylaxis Verified 06/23/21 14:14 eggs,bees,latex,peanuts Allergy Unknown Unknown Uncoded 06/23/21 14:14 medical tape Allergy Unknown Unknown Uncoded 06/23/21 14:14 TAPE,PLASTIC Allergy Unknown RASH Uncoded 06/23/21 14:14 Review of Systems Review of Systems: Yes all other systems are reviewed and are negative PMFSH Past Medical History Medical History Acute hyperglycemia Anxiety Asthma BMI 50.0-59.9, adult Cardiomyopathy CHF (congestive heart failure) Depression Diabetes mellitus, type 2 Diabetes type 2, uncontrolled DVT (deep vein thrombosis) in Essential hypertension Gallstones Hyperlipidemia LDL goal <70 Hypertension Hypothyroidism Irritable bowel Mood disorder Obesity due to excess calories ROGERIO (obstructive sleep apnea) Pancreatitis Proteinuria PTSD (post-traumatic stress disorder) PTSD (post-traumatic stress disorder) Pulmonary embolism Recurrent major depression Surgical History History of dental surgery History of open heart surgery Hx of hernia repair Hx of removal of cyst Family History Family History Paternal Grandmother Diabetes Social History Social History Household Members: Unknown / Unable to assess Housing: Apartment Housing Other:: 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 Do you presently have visiting nurse or other home services: Yes Unable to assess alcohol history related to: Refusing to respond Alcohol intake: current Alcohol intake frequency: holidays/special occasions only Patient Tobacco Use Status: Former Tobacco user Tobacco use type: Cigarette e-Cigarette/Vaping Use: Never Used Second Hand Smoke Exposure: Yes Substance Use Type: Marijuana Advance Directives: No Advance Directives Information Provided: No Patient : No service: No Sexual orientation: Lesbian/Good/Homosexual Physical Exam Vital Signs: Vital Signs: Last Vital Signs Temp 99.0 F 07/12/21 17:55 Pulse 93 07/12/21 17:55 Resp 16 07/12/21 17:55 BP 98/51 L 07/12/21 17:55 Pulse Ox 95 07/12/21 17:55 Oxygen Flow Rate 4 07/12/21 17:48 BMI result Body Mass Index 59.2 Const: Other: Awake, alert, female patient, very pleasant and cooperative, answers all questions appropriately, does not appear to be in distress HEENT: Head: Yes normal to inspection, Yes normocephalic and Yes atraumatic Ears: hearing grossly normal bilaterally General nose exam: Normal external nose present Face and sinus: Yes normal facial exam Mouth: Normal oral and palatal mucosa present, lip normal, tongue normal, oropharynx normal and moist mucous membranes Throat: Yes posterior oropharynx normal, Yes tonsils normal and Yes uvula midline Eyes: General: appearance normal, both eyes and all related structures Eyelids: Yes eyelids normal Conjunctivae: conjunctivae normal Sclerae: sclerae normal Corneas: corneas normal Pupils: Equal, round and reactive pupils present Neck: Neck: Yes normal visual inspection, Yes no lymphadenopathy, Yes trachea midline and Yes supple Thyroid: Thyroid normal Lymphatic: no lymphadenopathy noted Chest: Chest palpation & inspection: normal inspection of the chest and tenderness (Moderate sternal tenderness) Resp: Effort & Inspection: normal respiratory effort and able to speak in complete sentences Auscultation: wheezes (Diffuse) Cardio: Rate: regular rate Rhythm: regular rhythm Heart sounds: S1 normal heart sound present, S2 normal heart sound present and no murmurs GI: Inspection: Yes obesity Palpation (GI): Soft to palpation and nontender Auscultation: normal bowel sounds : General: Yes no CVA tenderness Back/Spine/Pelvis: Back: no CVA tenderness Thoracic/Lumbar Spine: thoracic and lumbar spine normal to inspection Skin: General skin exam: no rashes or lesions noted, no erythema and no jaundice Lesions: no lesions Rashes: no rashes Trauma: no lacerations or abrasions Wounds: no wounds Neuro: General: moves all extremities and no focal motor deficits Cranial nerves: Yes Equal, round and reactive pupils present Cognition (Neuro): normal cognition Motor exam (neuro): Motor abnormalities not present Extrem: General: Yes normal to inspection, Yes no pedal edema and Yes no calf tenderness Right upper extremity: normal to inspection Left upper extremity: normal to inspection Right lower extremity: normal to inspection Left lower extremity: normal to inspection Psych: Appearance: grossly normal Mental Status: mental status grossly normal Speech and movement: Normal speech and movement present Affect: normal affect Attitude: cooperative Thought process: Normal thought process present Insight: Good insight present (Psych) Course Course Course Narrative: 46-year-old female who presents emergency department for evaluation of 2 days of midsternal chest pain which has been constant, cough, shortness of breath and dyspnea on exertion, symptoms relieved by nebulizer treatments. Vital signs were normal with an O2 saturation of 97% on 2 L of oxygen via nasal cannula (chronic). The exam did reveal sternal tenderness and diffuse wheezing. Urinalysis was negative. Influenza, RSV and COVID-19 tests were negative. Patient's presentation is consistent with an asthma exacerbation. She was given Tylenol 975 orally for her chest pain, prednisone 60 mg IV for asthma and an albuterol nebulizer 2.5 mg. The patient will be discharged home with a prescription for prednisone 60 mg once a day for 5 days. She was given printed and verbal instructions and discharged. MDM - URI/Sore Throat Lab Data Labs: Lab Results 07/12/21 07/12/21 Range/Units 17:58 17:58 Urine Color YELLOW Urine Appearance CLEAR Urine pH 5.5 (5.0-8.0) Ur Specific [place] 1.010 (1.005-1.025) Urine Protein NEG (NEG-TRACE) MG/DL Urine Glucose (UA) >=1000 H (NEG) MG/DL Urine Ketones NEG (NEG) MG/DL Urine Blood NEG (NEG) Urine Nitrite NEG (NEG) Ur Leukocyte Esterase NEG (NEG) Urine RBC 0-2 (0) /HPF Urine WBC 0-2 (0-4) /HPF Ur Squamous Epith Cells 1+ /LPF Amorphous Sediment TRACE /LPF Urine Bacteria 1+ /LPF Urine Mucus TRACE /LPF Influenza Type A (PCR) NEGATIVE (Negative) Influenza Type B (PCR) NEGATIVE (Negative) RSV RNA Qual (PCR) NEGATIVE (Negative) SARS-CoV-2 RNA (RT-PCR) NEGATIVE (Negative) Discharge Plan Discharge Clinical Impression: Asthma exacerbation, Acute chest wall pain Patient Disposition: Home, Self-Care Instructions: Asthma (ED) Additional Instructions: Your COVID-19, RSV and influenza tests were negative. Urinalysis was negative. Your symptoms and presentation are consistent with an asthma exacerbation, this is causing her cough and your chest pain. Your treated with prednisone 60 mg orally, Tylenol 975 mg orally and an albuterol nebulizer x1. Continue to use your nebulizer and other medications as prescribed by your doctor I am prescribing prednisone 60 mg once a day for 5 days. Follow-up with your doctor in 2 days. Please return to the emergency department if your symptoms get worse or if you develop any symptoms that are concerning to you. Prescriptions: New prednisone 20 mg tablet 60 mg PO DAILY 5 Days Qty: 15 0RF No Action atorvastatin 40 mg tablet 40 mg PO DAILY Qty: 30 6RF metformin 1,000 mg tablet 1,000 mg PO BID 90 Days Qty: 180 1RF albuterol sulfate 2.5 mg /3 mL (0.083 %) Solution For Nebulization 2.5 mg inhalation QID PRN (Reason: Allergic Reaction) Qty: 3 0RF sertraline 50 mg Tablet 150 mg PO DAILY Qty: 30 0RF Trulicity 4.5 mg/0.5 mL pen injector 4.5 mg subcut QWEEK 0RF furosemide 20 mg tablet 1 tab PO DAILY 0RF insulin lispro [Humalog KwikPen Insulin] 100 unit/mL insulin pen 10 unit subcut BID 0RF lisinopril 5 mg tablet 1 tab PO DAILY 0RF levothyroxine 75 mcg tablet 1 tab PO QAM 0RF loratadine 10 mg tablet 1 tab PO DAILY 0RF metoprolol succinate 50 mg tablet extended release 24 hr 1 tab PO DAILY 0RF omeprazole 20 mg capsule,delayed release(DR/EC) 1 cap PO DAILY 0RF trazodone 50 mg tablet 1 tab PO BEDTIME PRN (Reason: insomnia) 0RF medroxyprogesterone 5 mg tablet 2 tab PO DAILY 0RF clonazepam 0.5 mg Tablet 0.5 mg PO BID Qty: 0 0RF lamotrigine 25 mg Tablet 25 mg PO BEDTIME Qty: 15 1RF erythromycin 5 mg/gram (0.5 %) Ointment 1 cm ophthalmic (eye) BID Qty: 1 0RF risperidone 0.5 mg Tablet 0.5 mg PO BID PRN (Reason: PTSD sx, grounding sx) Qty: 14 2RF warfarin 5 mg tablet 10 mg PO DAILY Qty: 1 0RF Toujeo Max U-300 SoloStar 300 unit/mL (3 mL) insulin pen 45 unit subcut 0RF Farxiga 5 mg tablet 5 mg PO DAILY Qty: 30 6RF (DME) FreeStyle [place] 2 [place] Misc See Rx Instructions .ROUTE .MEDSUPPLY Qty: 1 0RF Rx Instructions: As directed (DME) FreeStyle [place] 2 Sensor Kit See Rx Instructions .ROUTE .MEDSUPPLY Qty: 2 11RF Rx Instructions: As directed every 2 weeks
[2021-07-12] MEDS: predniSONE 20 MG TABLET 60 MG PO (19:03)
[2021-07-12] MEDS: Acetaminophen 325 MG TABLET 975 MG PO (19:03)
[2021-07-12] MEDS: Albuterol Sulfate (0.083%) 2.5 MG/3 ML VIAL.NEB INHALE (19:51)
[2021-07-12 19:55] VITALS: PULSE 88; RESP 18; O2SAT 97
== END 2021-07-12 20:52 | disposition home or self-care (01) ==
PROVIDERS: Emergency Provider Emergency Medicine Emergency Medical Services
DX: J45.901 Unspecified asthma with (acute) exacerbation (principal); R07.89 Other chest pain; I11.0 Hypertensive heart disease with heart failure; I50.9 Heart failure, unspecified; E11.9 Type 2 diabetes mellitus without complications; Z86.711 Personal history of pulmonary embolism; Z86.718 Personal history of other venous thrombosis and embolism; Z20.822 Contact with and (suspected) exposure to COVID-19
CPT/HCPCS: 0241U; 71045; 81001; 94640; 99284

== ENCOUNTER 2021-07-14 16:32 | Emergency (ER) | payer OTHER, SELFPAY ==
--- NOTE | 2021-07-14 16:45 | ED_ITS ---
HPI - Psych General Chief Complaint: General Medical Stated Complaint: CRISIS EVAL/GRIEF REACTION DREATH OF FRIEND Time Seen by Provider: 07/14/21 16:45 Source: patient Mode of arrival: EMS Limitations: no limitations History of Present Illness MD complaint: feels depressed Onset (ago): hour(s) Duration: constant History of same: Yes Relieving factors: none Exacerbating factors: other (thinking about of a friend) Context: significant life stressor Associated psychiatric symptoms: depression Associated symptoms: denies other symptoms Treatments prior to arrival: none Related Data Home Medications Medication Instructions Recorded Confirmed dulaglutide 4.5 mg/0.5 mL 4.5 mg SUBCUT QWEEK 03/24/21 06/23/21 subcutaneous pen injector (Trulicity) furosemide 20 mg tablet 1 tab PO DAILY 05/26/21 05/26/21 insulin lispro 100 unit/mL 10 unit SUBCUT BID 05/26/21 06/23/21 subcutaneous pen (Humalog KwikPen (U-100) Insulin) levothyroxine 75 mcg tablet 1 tab PO QAM 05/26/21 06/23/21 lisinopril 5 mg tablet 1 tab PO DAILY 05/26/21 06/23/21 loratadine 10 mg tablet 1 tab PO DAILY 05/26/21 05/26/21 metoprolol succinate 50 mg 1 tab PO DAILY 05/26/21 06/23/21 tablet,extended release 24 hr omeprazole 20 mg capsule,delayed 1 cap PO DAILY 05/26/21 05/26/21 release trazodone 50 mg tablet 1 tab PO BEDTIME PRN 05/26/21 05/26/21 medroxyprogesterone 5 mg tablet 2 tab PO DAILY 05/27/21 05/27/21 insulin glargine U-300 conc 300 45 unit SUBCUT ml 06/23/21 06/23/21 unit/mL (3 mL) subcutaneous pen (Toujeo Max U-300 SoloStar) Previous Rx's Medication Instructions Recorded albuterol sulfate 2.5 mg (3 mL) INHALATION QID PRN 11/17/20 #3 ml sertraline 50 mg tablet 150 mg PO DAILY #30 tab 11/17/20 atorvastatin 40 mg tablet 40 mg PO DAILY #30 tab 03/30/21 clonazepam 0.5 mg tablet 0.5 mg PO BID #0 tab 06/05/21 erythromycin 5 mg/gram (0.5 %) eye 1 cm OPHTHALMIC (EYE) BID #1 g 06/05/21 ointment lamotrigine 25 mg tablet 25 mg PO BEDTIME #15 tab 06/05/21 risperidone 0.5 mg tablet 0.5 mg PO BID PRN #14 tab 06/05/21 warfarin 5 mg tablet 10 mg PO DAILY #1 tab 06/05/21 metformin 1,000 mg tablet 1,000 mg PO BID 90 Days #180 tab 06/19/21 dapagliflozin 5 mg tablet (Farxiga) 5 mg PO DAILY #30 tab 06/23/21 flash glucose scanning reader #1 ea 06/23/21 (DatezrStyle Shelby 2 [place]) flash glucose sensor (FreeStyle #2 ea 06/23/21 Shelby 2 Sensor) prednisone 20 mg tablet 60 mg PO DAILY 5 Days #15 tab 07/12/21 Allergies Allergy/AdvReac Type Severity Reaction Status Date / Time Penicillins [PENICILLINS] Allergy Intermediate HIVES Verified 06/23/21 14:14 egg [Egg] Allergy Mild SWELLING Verified 06/23/21 14:14 aspirin Allergy Unknown Unknown Verified 06/23/21 14:14 bee pollen [BEE STINGS] Allergy Unknown UNKNOWN Verified 06/23/21 14:14 lactose [LACTOSE] Allergy Unknown UNKNOWN Verified 06/23/21 14:14 latex [LATEX] Allergy Unknown HIVES Verified 06/23/21 14:14 oxycodone Allergy Unknown Unknown Verified 06/23/21 14:14 peanut [PEANUT] Allergy Unknown UNKNOWN Verified 06/23/21 14:14 penicillin V Allergy Unknown Unknown Verified 06/23/21 14:14 kiwi Allergy Anaphylaxis Verified 06/23/21 14:14 eggs,bees,latex,peanuts Allergy Unknown Unknown Uncoded 06/23/21 14:14 medical tape Allergy Unknown Unknown Uncoded 06/23/21 14:14 TAPE,PLASTIC Allergy Unknown RASH Uncoded 06/23/21 14:14 Review of Systems Review of Systems: Constitutional : No Fever, No Chills ENT/Mouth : No Ear Pain, No Nasal Congestion, No sore throat Eyes: No Eye Pain, No Swelling, No Redness Cardiovascular : No Chest Pain, No SOB Respiratory : No Cough, No Sputum, No Dyspnea Gastrointestinal : No Nausea, No Vomiting, No Diarrhea, No Hematochezia, No Melena Genitourinary : No Dysuria, No Urinary Frequency, No Hematuria Musculoskeletal : No Myalgias Skin : No Skin Lesions, No rash Neuro : No Weakness, No Numbness, No Paresthesias, No Dizziness, No Headache Psych : positive Anxiety, positive Depression, no SI/HI Heme/Lymph: No Lymphadenopathy Endocrine : No Polyuria, No Polydipsia All other systems reviewed and are negative [facility] Past Medical History Attestation statement: The following information was validated with the patient. Medical History Acute hyperglycemia Anxiety Asthma BMI 50.0-59.9, adult Cardiomyopathy CHF (congestive heart failure) Depression Diabetes mellitus, type 2 Diabetes type 2, uncontrolled DVT (deep vein thrombosis) in Essential hypertension Gallstones Hyperlipidemia LDL goal <70 Hypertension Hypothyroidism Irritable bowel Mood disorder Obesity due to excess calories ROGERIO (obstructive sleep apnea) Pancreatitis Proteinuria PTSD (post-traumatic stress disorder) PTSD (post-traumatic stress disorder) Pulmonary embolism Recurrent major depression Surgical History History of dental surgery History of open heart surgery Hx of hernia repair Hx of removal of cyst Family History Family History Paternal Grandmother Diabetes Social History Social History Household Members: Unknown / Unable to assess Housing: Apartment Housing Other:: Has [employer] twice a day. Do you presently have visiting nurse or other home services: Yes Unable to assess alcohol history related to: Refusing to respond Alcohol intake: current Alcohol intake frequency: holidays/special occasions only Patient Tobacco Use Status: Former Tobacco user Tobacco use type: Cigarette e-Cigarette/Vaping Use: Never Used Second Hand Smoke Exposure: Yes Substance Use Type: Marijuana Advance Directives: No Advance Directives Information Provided: No Patient : No service: No Sexual orientation: Lesbian/Good/Homosexual Physical Exam Vital Signs: Vital Signs: Last Vital Signs Temp 96.5 F L 07/14/21 17:00 Pulse 90 07/14/21 17:00 Resp 20 07/14/21 17:00 BP 148/95 H 07/14/21 17:00 Pulse Ox 95 07/14/21 17:00 BMI result Body Mass Index 53.7 Appearance: Alert. Oriented X3. No acute distress. Eyes: Pupils equal, round and reactive to light. ENT: Pharynx normal. Neck: Normal inspection. Neck supple. CVS: Normal heart rate and rhythm. Pulses normal. Respiratory: No respiratory distress. Breath sounds normal. Abdomen: Soft and nontender. Skin: Skin warm and dry. Normal skin color. Normal skin turgor. Extremities: No lower extremity edema. No calf ttp Neuro: Oriented X 3. No motor deficit. No sensory deficit. CN2-12 intact Course Course Course Narrative: Physician observation started at 551pm. Patient placed in physician observation because the patient needed more time for CARE team to re-evaluate in the AM. At the time observation was started the patient's vitals were stable, patient is alert and oriented Neuro: nonfocal, CV RRR, Lungs clear MDM - Psych MDM Narrative Medical decision making narrative: 46 yo female here with hx of BPD, PTSD, obesity, HLD, DM, HTN, asthma, chronic respiratory failure here depressed with grief reaction she has no SI she did call [facility] and they stated the would follow up tomorrow at this time will offer CARE team to speak with her Discharge Plan Discharge Clinical Impression: Grief reaction Patient Disposition: Still a Patient Prescriptions: No Action atorvastatin 40 mg tablet 40 mg PO DAILY Qty: 30 6RF metformin 1,000 mg tablet 1,000 mg PO BID 90 Days Qty: 180 1RF albuterol sulfate 2.5 mg /3 mL (0.083 %) Solution For Nebulization 2.5 mg inhalation QID PRN (Reason: Allergic Reaction) Qty: 3 0RF sertraline 50 mg Tablet 150 mg PO DAILY Qty: 30 0RF Trulicity 4.5 mg/0.5 mL pen injector 4.5 mg subcut QWEEK 0RF furosemide 20 mg tablet 1 tab PO DAILY 0RF insulin lispro [Humalog KwikPen Insulin] 100 unit/mL insulin pen 10 unit subcut BID 0RF lisinopril 5 mg tablet 1 tab PO DAILY 0RF levothyroxine 75 mcg tablet 1 tab PO QAM 0RF loratadine 10 mg tablet 1 tab PO DAILY 0RF metoprolol succinate 50 mg tablet extended release 24 hr 1 tab PO DAILY 0RF omeprazole 20 mg capsule,delayed release(DR/EC) 1 cap PO DAILY 0RF trazodone 50 mg tablet 1 tab PO BEDTIME PRN (Reason: insomnia) 0RF medroxyprogesterone 5 mg tablet 2 tab PO DAILY 0RF clonazepam 0.5 mg Tablet 0.5 mg PO BID Qty: 0 0RF lamotrigine 25 mg Tablet 25 mg PO BEDTIME Qty: 15 1RF erythromycin 5 mg/gram (0.5 %) Ointment 1 cm ophthalmic (eye) BID Qty: 1 0RF risperidone 0.5 mg Tablet 0.5 mg PO BID PRN (Reason: PTSD sx, grounding sx) Qty: 14 2RF warfarin 5 mg tablet 10 mg PO DAILY Qty: 1 0RF prednisone 20 mg tablet 60 mg PO DAILY 5 Days Qty: 15 0RF Toujeo Max U-300 SoloStar 300 unit/mL (3 mL) insulin pen 45 unit subcut 0RF Farxiga 5 mg tablet 5 mg PO DAILY Qty: 30 6RF (DME) FreeStyle Shelby 2 [place] Misc See Rx Instructions .ROUTE .MEDSUPPLY Qty: 1 0RF Rx Instructions: As directed (DME) FreeStyle Shelby 2 Sensor Kit See Rx Instructions .ROUTE .MEDSUPPLY Qty: 2 11RF Rx Instructions: As directed every 2 weeks
[2021-07-14 16:53] VITALS: O2SAT 88
[2021-07-14 17:00] VITALS: BP 148/95; PULSE 90; RESP 20; TEMP 35.8; O2SAT 95
[2021-07-14 17:02] VITALS: BMI 53.7
--- NOTE | 2021-07-14 19:39 | MHC.CARE ---
CARE team support requested by ED physician for pt who arrived to the ED by ambulance experiencing emotional dysregulation s/p the of a close friend today. Pt reported that [facility]], her outpatient service providers, recommended that she come to the hospital for support because they didn't have available staff to be present to comfort or process with her. This credit underwriter met with pt in the main ED 18H bed. She was tearful and expressed feelings of guilt for her friend's . She reported that her friend, who is also her neighbor, had called her last night saying that she felt like she was choking and was coughing. The pt gave her friend tums and told her to drink water, which the friend said she started to feel better afterward. Today the pt learned that her friend had sometime overnight or this morning, cause of not known at this time. The pt reported that there was another in the past month or so in their apartment building, and there have been several others over the past few years that she's been living there. She reported that she is struggling to accept that her friend is gone and spoke about how she won't have anyone to hang out with or to talk to when she needs support. She denied having any day structure at this time and that she hasn't attended a day program or clubhouse for a while. She reported that she has appointments with her therapist and her cash office worker on and Tuesday this week. Recommendation is for pt to remain in ED overnight and to return home in the morning after an additional check in. If appropriate, CARE team may reach out to her outreach work at [facility]NOTE 3] to coordinate extra support following ED discharge. ED physician in agreement with plan of care.
[2021-07-14 20:02] LABS: Glucose, Whole Blood 268 mg/dL (60-115)
--- NOTE | 2021-07-14 21:05 | PHA.MEDREC ---
Pharmacy Consult ? Medication Reconciliation Pharmacy has completed the medication reconciliation. Pt carlotta historian, I tried to not lead her on which medications she takes, but she was agreeable to everything I named on her list. Did tell me exactly what she takes for insulin and specified 5mg of warfarin at dinnertime. Tamar Avilez, PharmD
[2021-07-14 22:06] VITALS: BP 123/67; PULSE 85; RESP 19; TEMP 36.8; O2SAT 92
[2021-07-15 01:12] VITALS: BP 110/54; PULSE 82; RESP 16; TEMP 36.9; O2SAT 95
[2021-07-15 01:25] LABS: Glucose, Whole Blood 194 mg/dL (60-115)
--- NOTE | 2021-07-15 01:52 | PC.NURSE ---
Assumed care of pt Pt resting on stretcher on the [place] NAD Pt made aware of plan: will have care management speak with her again tomorrow AM prior to d/c home. Pt verbalized understanding Will continue to monitor
[2021-07-15] MEDS: traZODone HCL 50 MG TABLET PO (03:07)
[2021-07-15] MEDS: clonazePAM 0.5 MG TABLET PO (03:07)
[2021-07-15] MEDS: lamoTRIgine 25 MG TABLET PO (03:07)
[2021-07-15 03:25] VITALS: RESP 18
[2021-07-15] MEDS: Erythromycin Base 0.5% Oph Oin 1 GM TUBE 1 CM EYE-BOTH (03:40)
[2021-07-15] MEDS: Insulin Lispro 100 UNIT/ML 3 ML VIAL 10 UNIT SUBCUT (03:40)
--- NOTE | 2021-07-15 03:52 | PC.NURSE ---
Pt medicated per MAR Awaiting INR results prior to giving warfarin Pt tolerated well Will continue to monitor
[2021-07-15 04:01] LABS: INTERNATIONAL NORM RATIO 2.9 (0.9-1.1); Prothrombin Time 34.3 SEC (9.9-13.0)
[2021-07-15] MEDS: Warfarin Sodium 5 MG TABLET PO (05:18)
[2021-07-15] MEDS: Levothyroxine Sodium 75 MCG TABLET PO (05:18)
[2021-07-15] MEDS: Omeprazole 20 MG CAPSULE.DR PO (05:57)
--- NOTE | 2021-07-15 07:05 | PC.NURSE ---
Report received from Ronnie CURRY. Patient is asleep on stretcher at this time. Appears comfortable. Respirations regular and even. Skin PWD. Patient remains on baseline 4L O2 NC. Awaiting Care Team evaluation this morning.
[2021-07-15 07:33] VITALS: BP 102/60; PULSE 86; RESP 16; TEMP 36.2; O2SAT 95
[2021-07-15 08:50] LABS: Glucose, Whole Blood 77 mg/dL (60-115)
[2021-07-15] MEDS: Sertraline HCL 50 MG TABLET 150 MG PO (09:46)
[2021-07-15] MEDS: Loratadine 10 MG TABLET PO (09:46)
[2021-07-15] MEDS: Metoprolol Succinate ER 50 MG TAB.ER.24H PO (09:46)
[2021-07-15] MEDS: medroxyPROGESTERone Acetate 5 MG TABLET 10 MG PO (09:47)
[2021-07-15] MEDS: metFORMIN HCl 1,000 MG TABLET 1000 MG PO (09:47)
[2021-07-15] MEDS: Atorvastatin Calcium 40 MG TABLET PO (09:47)
[2021-07-15] MEDS: predniSONE 20 MG TABLET 60 MG PO (09:48)
[2021-07-15] MEDS: Empagliflozin 10 MG TABLET PO (09:48)
[2021-07-15] MEDS: lisinopriL 5 MG TABLET PO (09:48)
[2021-07-15] MEDS: Furosemide 20 MG TABLET PO (09:48)
[2021-07-15 09:51] VITALS: BP 122/69; PULSE 88; RESP 18; O2SAT 95
--- NOTE | 2021-07-15 11:37 | MHC.CARE ---
CARE Team spoke at length to patient in [address] this morning regarding the of her neighbor, offering supportive listening and validation as she begins to process her grief. 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 In addition to this friend who yesterday, another neighbor she regularly spent time with recently , both losses leave patient without companionship. At this time patient is appropriately emotional and denied current suicidal ideation, noting that she might want to self-harm later if triggered again. She does not want to stay in the hospital and does not want to be alone at home, asked to go to respite. She is looking forward to an appointment with her motor coach supervisor at 12:30 today. Call to [facility], spoke to motor coach supervisor Samy regarding respite referral, he is familiar with patient and crisis was at her apartment yesterday after hearing the news so he is aware of the who situation. In the past patient?s medical needs have been a barrier to staying at a respite but he agreed that would be a good plan. He is going to check with the available respites regarding patient?s needs and his team will reach out to her in the early afternoon and likely go back to her apartment to evaluate for respite admission. Spoke with senior project leader/team lead, Cris ([phone]) who supports this plan, they will also be in contact with patient today. Provider, CARL Diaz updated and in agreement Patient will be brought home via chair van or ambulance
== END 2021-07-15 14:28 | disposition home or self-care (01) ==
PROVIDERS: Student in an Organized Health Care Education/Training Program; Emergency Provider Emergency Medicine
DX: F43.21 Adjustment disorder with depressed mood (principal); F33.1 Major depressive disorder, recurrent, moderate; E11.9 Type 2 diabetes mellitus without complications; I10 Essential (primary) hypertension; Z87.891 Personal history of nicotine dependence; Z79.899 Other long term (current) drug therapy
CPT/HCPCS: 36415; 82947; 85610; 99284

== ENCOUNTER 2021-07-20 23:00 | Emergency (ER) | payer OTHER, SELFPAY ==
--- NOTE | ~2021-07-20 | XR_ITS ---
EXAMINATION: XR CHEST CLINICAL INFORMATION: Shortness of breath. COMPARISON: Chest radiograph 07/12/2021. TECHNIQUE: Frontal view of the chest was obtained. FINDINGS: Multiple unfractured median sternotomy wires are noted. Multiple external overlying artifacts are visualized. The examination is underpenetrated as manifest by inability visualized thoracic vertebral bodies posterior to the cardiac silhouette. Making allowances for underpenetrated technique, no gross effusions or pneumothoraces are visualized. The cardiac silhouette remains prominent unchanged appreciably compared with 07/12/2021 making allowances for differences in imaging technique. The superiormost median sternotomy wires are fractured. XR/XR chest 1V IMPRESSION: *Suboptimal chest radiograph secondary to underpenetrated technique which may be secondary to body habitus. *Findings suspicious for pulmonary vascular congestion. No focal pulmonary consolidation. No gross pleural effusions or pneumothoraces.
[2021-07-20 23:08] VITALS: BP 148/72; PULSE 75; O2SAT 94
[2021-07-20 23:11] VITALS: BP 102/66; PULSE 71; RESP 20; TEMP 36.1; O2SAT 96; BMI 53.2
--- NOTE | 2021-07-21 00:31 | ED_ITS ---
HPI - General Adult General Chief complaint: General Medical Stated complaint: swelling both legs Time Seen by Provider: 07/21/21 00:31 Source: patient Mode of arrival: EMS Limitations: no limitations History of Present Illness HPI narrative: tingling in her body and feet swelling. Associated symptoms: shortness of breath Treatments prior to arrival: none Related Data Home Medications Medication Instructions Recorded Confirmed dulaglutide 4.5 mg/0.5 mL 4.5 mg SUBCUT FR 03/24/21 07/14/21 subcutaneous pen injector (Trulicity) furosemide 20 mg tablet 1 tab PO DAILY 05/26/21 07/14/21 insulin lispro 100 unit/mL 10 unit SUBCUT TID 05/26/21 07/14/21 subcutaneous pen (Humalog KwikPen (U-100) Insulin) levothyroxine 75 mcg tablet 1 tab PO DAILY 05/26/21 07/14/21 lisinopril 5 mg tablet 1 tab PO DAILY 05/26/21 07/14/21 loratadine 10 mg tablet 1 tab PO DAILY 05/26/21 07/14/21 metoprolol succinate 50 mg 1 tab PO DAILY 05/26/21 07/14/21 tablet,extended release 24 hr omeprazole 20 mg capsule,delayed 1 cap PO DAILY 05/26/21 07/14/21 release trazodone 50 mg tablet 1 tab PO BEDTIME 05/26/21 07/14/21 insulin glargine U-300 conc 300 45 unit SUBCUT BEDTIME ml 06/23/21 07/14/21 unit/mL (3 mL) subcutaneous pen (Toujeo Max U-300 SoloStar) albuterol sulfate 90 mcg/actuation 2 puff INHALATION Q4H PRN 07/14/21 07/14/21 aerosol inhaler (ProAir HFA) clonazepam 1 mg tablet 0.5 tab PO BID PRN 07/14/21 07/14/21 medroxyprogesterone 10 mg tablet 1 tab PO DAILY 07/14/21 07/14/21 warfarin 5 mg tablet 1 tab PO DAILY@1700 07/14/21 07/14/21 Previous Rx's Medication Instructions Recorded albuterol sulfate 2.5 mg (3 mL) INHALATION QID PRN 11/17/20 #3 ml sertraline 50 mg tablet 150 mg PO DAILY #30 tab 11/17/20 atorvastatin 40 mg tablet 40 mg PO DAILY #30 tab 03/30/21 erythromycin 5 mg/gram (0.5 %) eye 1 cm OPHTHALMIC (EYE) BID #1 g 06/05/21 ointment lamotrigine 25 mg tablet 25 mg PO BEDTIME #15 tab 06/05/21 risperidone 0.5 mg tablet 0.5 mg PO BID PRN #14 tab 06/05/21 metformin 1,000 mg tablet 1,000 mg PO BID 90 Days #180 tab 06/19/21 dapagliflozin 5 mg tablet (Farxiga) 5 mg PO DAILY #30 tab 06/23/21 flash glucose scanning reader #1 ea 06/23/21 (PacketFrontStyle [place] 2 [place]) flash glucose sensor (FreeStyle #2 ea 06/23/21 [place] 2 Sensor) prednisone 20 mg tablet 60 mg PO DAILY 5 Days #15 tab 07/12/21 Allergies Allergy/AdvReac Type Severity Reaction Status Date / Time Penicillins [PENICILLINS] Allergy Intermediate HIVES Verified 07/20/21 23:09 egg [Egg] Allergy Mild SWELLING Verified 07/20/21 23:09 aspirin Allergy Unknown Unknown Verified 07/20/21 23:09 bee pollen [BEE STINGS] Allergy Unknown UNKNOWN Verified 07/20/21 23:09 lactose [LACTOSE] Allergy Unknown UNKNOWN Verified 07/20/21 23:09 latex [LATEX] Allergy Unknown HIVES Verified 07/20/21 23:09 oxycodone Allergy Unknown Unknown Verified 07/20/21 23:09 peanut [PEANUT] Allergy Unknown UNKNOWN Verified 07/20/21 23:09 penicillin V Allergy Unknown Unknown Verified 07/20/21 23:09 kiwi Allergy Anaphylaxis Verified 07/20/21 23:09 eggs,bees,latex,peanuts Allergy Unknown Unknown Uncoded 07/20/21 23:09 medical tape Allergy Unknown Unknown Uncoded 07/20/21 23:09 TAPE,PLASTIC Allergy Unknown RASH Uncoded 07/20/21 23:09 Review of Systems Constitutional: Constitutional: Reports no additional constitutional complaints Eyes: Eyes: Reports no additional eye complaints ENT: Denies dizziness Cardiovascular: Cardiovascular: Reports no additional cardiovascular complaints Respiratory: Respiratory: Reports as per HPI Gastrointestinal: Gastrointestinal: Reports no additional gastrointestinal complaints Genitourinary: Genitourinary: Reports no additional female genitourinary complaints Musculoskeletal: Musculoskeletal: Reports no additional musculoskeletal complaints Integumentary/Breasts: Skin/Breast: Denies rash Neurologic: Reports system reviewed and no additional complaints, except as documented, Denies dizziness and Denies Sensory deficit (Neuro) Psychiatric: Psychiatric: Denies anxiety PMFSH Past Medical History Medical History Acute hyperglycemia Anxiety Asthma BMI 50.0-59.9, adult Cardiomyopathy CHF (congestive heart failure) Depression Diabetes mellitus, type 2 Diabetes type 2, uncontrolled DVT (deep vein thrombosis) in Essential hypertension Gallstones Hyperlipidemia LDL goal <70 Hypertension Hypothyroidism Irritable bowel Mood disorder Obesity due to excess calories ROGERIO (obstructive sleep apnea) Pancreatitis Proteinuria PTSD (post-traumatic stress disorder) PTSD (post-traumatic stress disorder) Pulmonary embolism Recurrent major depression Surgical History History of dental surgery History of open heart surgery Hx of hernia repair Hx of removal of cyst Family History Family History Paternal Grandmother Diabetes Social History Social History Household Members: Unknown / Unable to assess Housing: Apartment Housing Other:: Has ALLERGIST/IMMUNOLOGIST twice a day. Do you presently have visiting nurse or other home services: Yes Unable to assess alcohol history related to: Refusing to respond Alcohol intake: current Alcohol intake frequency: holidays/special occasions only Patient Tobacco Use Status: Former Tobacco user Tobacco use type: Cigarette e-Cigarette/Vaping Use: Never Used Second Hand Smoke Exposure: Yes Substance Use Type: Marijuana Advance Directives: No Advance Directives Information Provided: No service: No Sexual orientation: Lesbian/Good/Homosexual Physical Exam ED Vital Signs: Vital Signs - 24 hr 07/20/21 23:11 07/21/21 00:36 07/21/21 01:58 Temperature 97 F Pulse Rate 71 69 69 Respiratory Rate 20 14 17 Blood Pressure 102/66 107/54 L 104/52 L Pulse Oximetry 96 98 96 BMI result Body Mass Index 53.2 Const Other: chronically ill on oxygen Nutritional Appearance: obese Orientation/consciousness: oriented to person and patient oriented x3 Limitations: no limitations HENMT Head: Yes normal to inspection Ears: external ears normal General nose exam: Normal external nose present Mouth: Normal oral and palatal mucosa present and oropharynx normal Throat: Yes posterior oropharynx normal Eyes General: appearance normal, both eyes and all related structures Neck Other: +JVD Chest Chest palpation & inspection: normal inspection of the chest Resp Auscultation: clear to auscultation bilaterally Cardio Jugular venous distension: no JVD Rate: regular rate Rhythm: regular rhythm Heart sounds: S1 normal heart sound present and S2 normal heart sound present GI Inspection: Yes normal to inspection Palpation (GI): Soft to palpation, nontender and No hepatosplenomegaly present Auscultation: normal bowel sounds General: Yes no CVA tenderness Back/Spine/Pelvis Back: no CVA tenderness Skin General skin exam: no rashes or lesions noted Neuro General: oriented to person and patient oriented x3 Cranial nerves: Yes CN's II-XII intact bilaterally Motor exam (neuro): 5/5 motor strength present throughout Sensory Exam: No Sensory deficit (Neuro) Extrem Other: 3+ edema bilaterally Psych Appearance: grossly normal Course Reevaluation(s) Reevaluation #1: Patient with slight increase of her BNP, with evidence of chronic CHF and cardiomyopathy. She was given extra lasix and discharged home Time: 03:22 Medical Decision Making Lab Data Result diagrams: 07/21/21 00:56 07/21/21 00:56 Labs: Lab Results 07/21/21 07/21/21 07/21/21 Range/Units 00:56 00:56 00:56 WBC 14.3 H (4.8-10.8) X10*3/uL RBC 4.48 (4.20-5.50) X10*6/uL Hgb 10.4 L (12.0-16.0) g/dl Hct 35.8 L (37.0-47.0) % MCV 79.9 L (80.0-98.0) fL MCH 23.2 L (27.0-33.0) pg MCHC 29.1 L (31.0-35.0) g/dl RDW 22.5 H (11.0-16.0) % Plt Count 326 (160-400) X10*3/uL MPV 10.9 (9.4-12.3) fL Immature Gran % (Auto) 0.5 H (0.0-0.4) % Neut % (Auto) 63.0 (45-73) % Lymph % (Auto) 27.4 (20-40) % Swift % (Auto) 5.8 (2-11) % Eos % (Auto) 2.9 (0-4) % Baso % (Auto) 0.4 (0-2) % Lymph # (Auto) 3.9 (1.2-4.9) X10*3/uL Swift # (Auto) 0.8 (0.1-1.2) X10*3/uL Eos # (Auto) 0.4 (0.0-0.4) X10*3/uL Baso # (Auto) 0.1 (0.0-0.2) X10*3/uL Abs Immat Gran (auto) 0.07 H (0.00-0.03) X10*3/uL Absolute Neuts (auto) 9.0 H (2.0-8.3) x10*3/uL Absolute Nucleated RBC 0.070 H (0.0-0.012) X10*3/uL Nucleated RBC % (auto) 0.5 H (0.0-0.2) /100WBC PT (9.9-13.0) SEC INR (0.9-1.1) Sodium 141 (135-145) mmol/L Potassium 3.7 (3.3-5.1) mmol/L Chloride 101 (96-108) mmol/L Carbon Dioxide 33 H (22-29) mmol/L Anion Gap 11 L (12-20) BUN 22 H D (9-16) mg/dL Creatinine 1.30 (0.5-1.4) mg/dL Estim Creat Clear Calc 83.2 Estimated GFR 44 POC Glucose (60-115) mg/dL Random Glucose 300 H (60-115) mg/dL Calcium 9.4 D (8.4-10.2) mg/dL Troponin I High Sens (<3.5-17.0) ng/L B-Natriuretic Peptide 409 H (<100) pg/mL 07/21/21 07/21/21 07/21/21 Range/Units 00:56 02:53 03:05 WBC (4.8-10.8) X10*3/uL RBC (4.20-5.50) X10*6/uL Hgb (12.0-16.0) g/dl Hct (37.0-47.0) % MCV (80.0-98.0) fL MCH (27.0-33.0) pg MCHC (31.0-35.0) g/dl RDW (11.0-16.0) % Plt Count (160-400) X10*3/uL MPV (9.4-12.3) fL Immature Gran % (Auto) (0.0-0.4) % Neut % (Auto) (45-73) % Lymph % (Auto) (20-40) % Swift % (Auto) (2-11) % Eos % (Auto) (0-4) % Baso % (Auto) (0-2) % Lymph # (Auto) (1.2-4.9) X10*3/uL Swift # (Auto) (0.1-1.2) X10*3/uL Eos # (Auto) (0.0-0.4) X10*3/uL Baso # (Auto) (0.0-0.2) X10*3/uL Abs Immat Gran (auto) (0.00-0.03) X10*3/uL Absolute Neuts (auto) (2.0-8.3) x10*3/uL Absolute Nucleated RBC (0.0-0.012) X10*3/uL Nucleated RBC % (auto) (0.0-0.2) /100WBC PT 32.1 H (9.9-13.0) SEC INR 2.8 H (0.9-1.1) Sodium (135-145) mmol/L Potassium (3.3-5.1) mmol/L Chloride (96-108) mmol/L Carbon Dioxide (22-29) mmol/L Anion Gap (12-20) BUN (9-16) mg/dL Creatinine (0.5-1.4) mg/dL Estim Creat Clear Calc Estimated GFR POC Glucose 209 H (60-115) mg/dL Random Glucose (60-115) mg/dL Calcium (8.4-10.2) mg/dL Troponin I High Sens < 3.5 (<3.5-17.0) ng/L B-Natriuretic Peptide (<100) pg/mL Imaging Data Chest x-ray: Radiologist's impression: IMPRESSION: *Suboptimal chest radiograph secondary to underpenetrated technique which may be secondary to body habitus. *Findings suspicious for pulmonary vascular congestion. No focal pulmonary consolidation. No gross pleural effusions or pneumothoraces. ? Discharge Plan Discharge Clinical Impression: Congestive heart failure with LV diastolic dysfunction, NYHA class 1, Cardiomyopathy Patient Disposition: Home, Self-Care Instructions: Heart Failure (ED), Dilated Cardiomyopathy (DC) Additional Instructions: make sure you are taking your lasix and limiting your fluid intake Prescriptions: No Action atorvastatin 40 mg tablet 40 mg PO DAILY Qty: 30 6RF metformin 1,000 mg tablet 1,000 mg PO BID 90 Days Qty: 180 1RF albuterol sulfate 2.5 mg /3 mL (0.083 %) Solution For Nebulization 2.5 mg inhalation QID PRN (Reason: Allergic Reaction) Qty: 3 0RF sertraline 50 mg Tablet 150 mg PO DAILY Qty: 30 0RF Trulicity 4.5 mg/0.5 mL pen injector 4.5 mg subcut FR 0RF furosemide 20 mg tablet 1 tab PO DAILY 0RF insulin lispro [Humalog KwikPen Insulin] 100 unit/mL insulin pen 10 unit subcut TID 0RF lisinopril 5 mg tablet 1 tab PO DAILY 0RF levothyroxine 75 mcg tablet 1 tab PO DAILY 0RF loratadine 10 mg tablet 1 tab PO DAILY 0RF metoprolol succinate 50 mg tablet extended release 24 hr 1 tab PO DAILY 0RF omeprazole 20 mg capsule,delayed release(DR/EC) 1 cap PO DAILY 0RF trazodone 50 mg tablet 1 tab PO BEDTIME 0RF lamotrigine 25 mg Tablet 25 mg PO BEDTIME Qty: 15 1RF erythromycin 5 mg/gram (0.5 %) Ointment 1 cm ophthalmic (eye) BID Qty: 1 0RF risperidone 0.5 mg Tablet 0.5 mg PO BID PRN (Reason: PTSD sx, grounding sx) Qty: 14 2RF prednisone 20 mg tablet 60 mg PO DAILY 5 Days Qty: 15 0RF medroxyprogesterone 10 mg tablet 1 tab PO DAILY 0RF clonazepam 1 mg tablet 0.5 tab PO BID PRN (Reason: anxiety) 0RF albuterol sulfate [ProAir HFA] 90 mcg/actuation HFA aerosol inhaler 2 puff inhalation Q4H PRN (Reason: Wheezing) 0RF warfarin 5 mg tablet 1 tab PO DAILY@1700 0RF Toujeo Max U-300 SoloStar 300 unit/mL (3 mL) insulin pen 45 unit subcut BEDTIME 0RF Farxiga 5 mg tablet 5 mg PO DAILY Qty: 30 6RF (DME) FreeStyle [place] 2 [place] Misc See Rx Instructions .ROUTE .MEDSUPPLY Qty: 1 0RF Rx Instructions: As directed (DME) FreeStyle [place] 2 Sensor Kit See Rx Instructions .ROUTE .MEDSUPPLY Qty: 2 11RF Rx Instructions: As directed every 2 weeks
--- NOTE | 2021-07-21 00:35 | ECG_ITS ---
Test Reason : CHEST PAIN Blood Pressure : / mmHG Vent. Rate : 068 BPM Atrial Rate : 068 BPM P-R Int : 172 ms QRS Dur : 082 ms QT Int : 420 ms P-R-T Axes : 056 103 081 degrees QTc Int : 446 ms Normal sinus rhythm Rightward axis Low voltage QRS Cannot rule out Anterior infarct , age undetermined Abnormal ECG When compared with ECG of 29-JUN-2021 21:14, No significant change was found Referred By: Edson Porter Electronically Signed By:TATE GEORGE
[2021-07-21 00:36] VITALS: BP 107/54; PULSE 69; RESP 14; O2SAT 98
[2021-07-21] MEDS: Furosemide 40 MG/4 ML VIAL IVPUSH (00:40)
[2021-07-21 01:01] LABS: Basophils Absolute Auto 0.1 X10*3/uL (0.0-0.2); Basophils Percent Auto 0.4 % (0-2); Eosinophils Absolute Auto 0.4 X10*3/uL (0.0-0.4); Eosinophils Percent Auto 2.9 % (0-4); Hematocrit 35.8 % (37.0-47.0); Hemoglobin 10.4 g/dl (12.0-16.0); Imm Gran Abs Auto 0.07 X10*3/uL (0.00-0.03); Imm Gran Pct Auto 0.5 % (0.0-0.4); Lymphocytes Absolute Auto 3.9 X10*3/uL (1.2-4.9); Lymphocytes Percent Auto 27.4 % (20-40); MANUAL DIFF FLAG NO; Mean Corpuscular HGB Conc 29.1 g/dl (31.0-35.0); Mean Corpuscular Hemoglobin 23.2 pg (27.0-33.0); Mean Corpuscular Volume 79.9 fL (80.0-98.0); Mean Platelet Volume 10.9 fL (9.4-12.3); Monocytes Absolute Auto 0.8 X10*3/uL (0.1-1.2); Monocytes Percent Auto 5.8 % (2-11); NRBC Pct Auto 0.5 /100WBC (0.0-0.2); Platelet Count 326 X10*3/uL (160-400); Red Blood Count 4.48 X10*6/uL (4.20-5.50); Red Cell Distribution Width 22.5 % (11.0-16.0); White Blood Count 14.3 X10*3/uL (4.8-10.8)
[2021-07-21 01:16] LABS: Anion Gap 11 (12-20); Blood Urea Nitrogen 22 mg/dL (9-16); Calcium 9.4 mg/dL (8.4-10.2); Carbon Dioxide 33 mmol/L (22-29); Chloride 101 mmol/L (96-108); Creatinine Clr Calc Pharmacy 83.2; Estimated Glomerular Filt Rate 44; Glucose Random 300 mg/dL (60-115); Potassium 3.7 mmol/L (3.3-5.1); Sodium 141 mmol/L (135-145)
[2021-07-21 01:23] LABS: B Type Natriuretic Peptide 409 pg/mL (<100); Troponin-I High Sensitivity < 3.5 ng/L (<3.5-17.0)
[2021-07-21 01:58] VITALS: BP 104/52; PULSE 69; RESP 17; O2SAT 96
[2021-07-21 02:00] VITALS: BP 110/77; PULSE 88; RESP 20; TEMP 37.1; O2SAT 95
[2021-07-21 03:06] LABS: INTERNATIONAL NORM RATIO 2.8 (0.9-1.1); Prothrombin Time 32.1 SEC (9.9-13.0)
[2021-07-21 03:09] LABS: Glucose, Whole Blood 209 mg/dL (60-115)
[2021-07-21] MEDS: Insulin Lispro 100 UNIT/ML 3 ML VIAL SUBCUT (03:28)
[2021-07-21 04:00] VITALS: BP 105/63; PULSE 70; RESP 14; TEMP 36.9; O2SAT 99
[2021-07-21] MEDS: Acetaminophen 325 MG TABLET 975 MG PO (04:00)
--- NOTE | 2021-07-23 11:36 | MHC.CARE ---
1030 First of two check in calls to patient today. She reported that yesterday after discharging from here she had a panic attack but attributed most of that to being without oxygen for a short period of time but nonetheless was proud of herself for being able to calm down with the help of a staff person and did not need to call 911. Patient also pleased with herself because when she could not sleep last she took a shower, has been only washing up, not actually bathing for some time. In general, doing well today. Patient understands she is getting an additional call tonight, may need to be reminded this is not an ongoing situation and should use crisis going forward.
== END 2021-07-21 05:00 | disposition home or self-care (01) ==
PROVIDERS: Emergency Provider Emergency Medicine
DX: R06.02 Shortness of breath (principal); R07.89 Other chest pain; R60.0 Localized edema; Z79.899 Other long term (current) drug therapy; Z87.891 Personal history of nicotine dependence
CPT/HCPCS: 36415; 71045; 80048; 82947; 83880; 84484; 85025; 85610; 93005; 96374; 99284; 99285; J1940

== ENCOUNTER 2021-07-22 10:46 | Emergency (ER) | payer OTHER, SELFPAY ==
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
[2021-07-22 11:41] VITALS: BP 122/80; BP 123/54; PULSE 85; RESP 18; TEMP 36.7; O2SAT 96; O2SAT 97; BMI 54.2
[2021-07-22 12:00] LABS: Glucose, Whole Blood 32 mg/dL (60-115)
[2021-07-22 12:22] LABS: Glucose, Whole Blood 49 mg/dL (60-115)
[2021-07-22 12:59] LABS: Glucose, Whole Blood 88 mg/dL (60-115)
[2021-07-22 13:11] LABS: MANUAL DIFF FLAG NO
[2021-07-22 13:15] LABS: Basophils Percent Auto 0.3 % (0-2); Eosinophils Absolute Auto 0.2 X10*3/uL (0.0-0.4); Eosinophils Percent Auto 1.4 % (0-4); Hematocrit 37.3 % (37.0-47.0); Hemoglobin 10.8 g/dl (12.0-16.0); Imm Gran Abs Auto 0.04 X10*3/uL (0.00-0.03); Imm Gran Pct Auto 0.4 % (0.0-0.4); Lymphocytes Percent Auto 17.8 % (20-40); Mean Corpuscular Hemoglobin 23.3 pg (27.0-33.0); Mean Corpuscular Volume 80.4 fL (80.0-98.0); Mean Platelet Volume 10.6 fL (9.4-12.3); Monocytes Absolute Auto 0.7 X10*3/uL (0.1-1.2); Monocytes Percent Auto 6.1 % (2-11); NRBC Pct Auto 0.2 /100WBC (0.0-0.2); Neutrophils Absolute Auto 8.4 x10*3/uL (2.0-8.3); Platelet Count 343 X10*3/uL (160-400); Red Blood Count 4.64 X10*6/uL (4.20-5.50); Red Cell Distribution Width 22.4 % (11.0-16.0); White Blood Count 11.3 X10*3/uL (4.8-10.8)
[2021-07-22 13:18] LABS: INTERNATIONAL NORM RATIO 4.5 (0.9-1.1); Prothrombin Time 52.9 SEC (9.9-13.0)
[2021-07-22 13:26] LABS: Anion Gap 11 (12-20); Blood Urea Nitrogen 13 mg/dL (9-16); Calcium 8.9 mg/dL (8.4-10.2); Carbon Dioxide 39 mmol/L (22-29); Chloride 97 mmol/L (96-108); Creatinine Clr Calc Pharmacy 117.6; Estimated Glomerular Filt Rate > 60; Glucose Random 134 mg/dL (60-115); Potassium 3.8 mmol/L (3.3-5.1); Sodium 143 mmol/L (135-145)
[2021-07-22 13:39] LABS: COVID-19 Test Negative (Negative); IDNOW Serial# 55D5AD1C
[2021-07-22 13:41] LABS: Glucose, Whole Blood 143 mg/dL (60-115)
--- NOTE | 2021-07-22 14:03 | PHA.MEDREC ---
Pharmacy Consult ? Medication Reconciliation Pharmacy has completed the medication reconciliation. Contacted Shannan who faxed me medication list from patient's [facility]. Tamar Avilez, JankiD
[2021-07-22 15:58] LABS: Glucose, Whole Blood 237 mg/dL (60-115)
--- NOTE | 2021-07-22 16:00 | PC.NURSE ---
attempted to call [facility] worker Cris- no answer- message left
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
[2021-07-22] MEDS: clonazePAM 0.5 MG TABLET PO (16:46)
--- NOTE | 2021-07-24 11:28 | MHC.CARE ---
CARE Team attempted check-in call, but no answer. CARE Team sent a voicemail and left our number.
== END 2021-07-22 17:27 | disposition home or self-care (01) ==
PROVIDERS: Emergency Provider Emergency Medicine
DX: F32.A Depression, unspecified (principal); I11.0 Hypertensive heart disease with heart failure; I50.9 Heart failure, unspecified; E11.9 Type 2 diabetes mellitus without complications; J45.909 Unspecified asthma, uncomplicated; Z86.711 Personal history of pulmonary embolism; Z86.718 Personal history of other venous thrombosis and embolism; Z99.81 Dependence on supplemental oxygen; Z20.822 Contact with and (suspected) exposure to COVID-19
CPT/HCPCS: 80048; 82947; 85025; 85610; 87635; 99284; 99285

== ENCOUNTER 2021-07-26 12:45 | Emergency (ER) | payer OTHER, SELFPAY ==
--- NOTE | ~2021-07-26 | XR_ITS ---
EXAMINATION: XR CHEST CLINICAL INFORMATION: Shortness of breath COMPARISON: 07/21/2021 TECHNIQUE: 2 views of the chest were obtained. FINDINGS: Study limited by overlying soft tissues and shallow inspiration. No obvious consolidation. No obvious pneumothorax or pleural effusion. Median sternotomy wires redemonstrated with a fracture of the uppermost wire. The cardiac silhouette is stable in size. XR/XR chest 2V IMPRESSION: Hypoexpanded lungs. No obvious consolidation is seen. The study is very limited. A CT of the thorax could be obtained if there is a strong clinical concern.
--- NOTE | ~2021-07-26 | XR_ITS ---
EXAMINATION: XR ANKLE, RIGHT CLINICAL INFORMATION: Pain and swelling COMPARISON: 11/01/2020 TECHNIQUE: AP, lateral, and mortise views of the right ankle. FINDINGS: Moderate diffuse soft tissue swelling tracking into the foot. A venous phlebolith is seen in the anterior aspect of the lower leg. No evidence of ankle effusion. No visible acute fracture or dislocation is seen. Talar dome is intact. XR/XR ankle RT min 3V IMPRESSION: Significant soft tissue swelling diffusely. No acute fracture or dislocation or acute osseous abnormality is appreciated.
[2021-07-26 13:12] VITALS: BP 119/72; PULSE 105; RESP 20; TEMP 36.6; O2SAT 96; BMI 54.2
--- NOTE | 2021-07-26 13:24 | ED_ITS ---
HPI - General Adult General Chief complaint: Skin/Abscess/Foreign Body Stated complaint: FB IN R EAR Time Seen by Provider: 07/26/21 13:18 Source: patient Mode of arrival: wheelchair Limitations: no limitations History of Present Illness HPI narrative: 46 y/o female with history of borderline personality, PTSD, CHF, PE on Coumadin, chronic hypoxic respiratory failure on oxygen, DM2, who presents to the ER with a piece of a cotton swab stuck in her left ear that has been there since last night. She called her doctor to try to be seen today but was unable. 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 She also reports ongoing right ankle pain and swelling of both of her legs for the last month. She has increased her lasix with minimal improvement. She reports being up and on her feet more than usual now that her broken right ankle has healed. She reports twisting it the other day with increased pain and swelling. She reports her breathing is at her baseline. No chest pain. MD complaint: FB in left ear & LE edema Onset (ago): day(s) (1) Location: face, left, right and lower extremity Radiation: non-radiation Severity: moderate Quality: aching Pain Consistency: constant Relieving factors: rest Exacerbating factors: movement Associated symptoms: denies other symptoms Treatments prior to arrival: none Related Data Home Medications Medication Instructions Recorded Confirmed dulaglutide 4.5 mg/0.5 mL 4.5 mg SUBCUT FR 03/24/21 07/22/21 subcutaneous pen injector (Trulicity) furosemide 20 mg tablet 1 tab PO DAILY 05/26/21 07/22/21 insulin lispro 100 unit/mL 10 unit SUBCUT BID 05/26/21 07/22/21 subcutaneous pen (Humalog KwikPen (U-100) Insulin) levothyroxine 75 mcg tablet 1 tab PO DAILY 05/26/21 07/22/21 lisinopril 5 mg tablet 1 tab PO DAILY 05/26/21 07/22/21 loratadine 10 mg tablet 1 tab PO DAILY 05/26/21 07/22/21 metoprolol succinate 50 mg 1 tab PO DAILY 05/26/21 07/22/21 tablet,extended release 24 hr omeprazole 20 mg capsule,delayed 1 cap PO DAILY 05/26/21 07/22/21 release trazodone 50 mg tablet 1 tab PO BEDTIME 05/26/21 07/22/21 insulin glargine U-300 conc 300 45 unit SUBCUT BEDTIME ml 06/23/21 07/22/21 unit/mL (3 mL) subcutaneous pen (Toujeo Max U-300 SoloStar) albuterol sulfate 90 mcg/actuation 2 puff INHALATION Q4H PRN 07/14/21 07/22/21 aerosol inhaler (ProAir HFA) clonazepam 1 mg tablet 0.5 tab PO BID PRN 07/14/21 07/22/21 medroxyprogesterone 10 mg tablet 1 tab PO DAILY 07/14/21 07/22/21 warfarin 5 mg tablet 1 tab PO DAILY@1700 07/14/21 07/22/21 epinephrine 0.3 mg/0.3 mL 0.3 mg IM Q4H PRN 07/22/21 07/22/21 injection, auto-injector (EpiPen) fluticasone propionate 110 2 puff INHALATION BID 07/22/21 07/22/21 mcg/actuation HFA aerosol inhaler (Flovent HFA) sertraline 100 mg tablet 1.5 tab PO QAM 07/22/21 07/22/21 Previous Rx's Medication Instructions Recorded albuterol sulfate 2.5 mg (3 mL) INHALATION QID PRN 11/17/20 #3 ml atorvastatin 40 mg tablet 40 mg PO DAILY #30 tab 03/30/21 erythromycin 5 mg/gram (0.5 %) eye 1 cm OPHTHALMIC (EYE) BID #1 g 06/05/21 ointment lamotrigine 25 mg tablet 25 mg PO BEDTIME #15 tab 06/05/21 risperidone 0.5 mg tablet 0.5 mg PO BID PRN #14 tab 06/05/21 metformin 1,000 mg tablet 1,000 mg PO BID 90 Days #180 tab 06/19/21 dapagliflozin 5 mg tablet (Farxiga) 5 mg PO DAILY #30 tab 06/23/21 flash glucose sensor (FreeStyle #2 ea 06/23/21 Shelby 2 Sensor) flash glucose scanning reader #1 ea 07/22/21 (FreeStyle Shelby 2 Wendell) Allergies Allergy/AdvReac Type Severity Reaction Status Date / Time Penicillins [PENICILLINS] Allergy Intermediate HIVES Verified 07/26/21 13:16 egg [Egg] Allergy Mild SWELLING Verified 07/26/21 13:16 aspirin Allergy Unknown Unknown Verified 07/26/21 13:16 bee pollen [BEE STINGS] Allergy Unknown UNKNOWN Verified 07/26/21 13:16 lactose [LACTOSE] Allergy Unknown UNKNOWN Verified 07/26/21 13:16 latex [LATEX] Allergy Unknown HIVES Verified 07/26/21 13:16 oxycodone Allergy Unknown Unknown Verified 07/26/21 13:16 peanut [PEANUT] Allergy Unknown UNKNOWN Verified 07/26/21 13:16 penicillin V Allergy Unknown Unknown Verified 07/26/21 13:16 kiwi Allergy Anaphylaxis Verified 07/26/21 13:16 eggs,bees,latex,peanuts Allergy Unknown Unknown Uncoded 07/20/21 23:09 medical tape Allergy Unknown Unknown Uncoded 07/20/21 23:09 TAPE,PLASTIC Allergy Unknown RASH Uncoded 07/20/21 23:09 Review of Systems Review of Systems: Constitutional: No Fever, No Chills ENT/Mouth: No sore throat, No Rhinorrhea, No Swallowing Difficulty, +FB in ear, No hearing loss, No Otalgia Eyes: No Eye Pain, No Swelling, No Redness Cardiovascular: No Chest Pain, + SOB, No Orthopnea, + Edema Respiratory: No Cough, No Sputum, No Wheezing, + dyspnea Gastrointestinal: No Nausea, No Vomiting, No Diarrhea, No abdominal Pain Genitourinary: No Dysuria, No Urinary Frequency, No Hematuria Musculoskeletal: +joint pain, No Myalgias Skin: No Skin Lesions, No rash Neuro: No Weakness, No Numbness, No Dizziness, No Headache Psych: + Anxiety/Panic, + Depression Heme/Lymph: No Bruising, No Lymphadenopathy Endocrine: + Polyuria, No Polydipsia PMFSH Past Medical History Medical History Acute hyperglycemia Anxiety Asthma BMI 50.0-59.9, adult Cardiomyopathy CHF (congestive heart failure) Depression Diabetes mellitus, type 2 Diabetes type 2, uncontrolled DVT (deep vein thrombosis) in Essential hypertension Gallstones Hyperlipidemia LDL goal <70 Hypertension Hypothyroidism Irritable bowel Mood disorder Obesity due to excess calories ROGERIO (obstructive sleep apnea) Pancreatitis Proteinuria PTSD (post-traumatic stress disorder) PTSD (post-traumatic stress disorder) Pulmonary embolism Recurrent major depression Surgical History History of dental surgery History of open heart surgery Hx of hernia repair Hx of removal of cyst Family History Family History Paternal Grandmother Diabetes Social History Social History Household Members: Unknown / Unable to assess Housing: Apartment Housing Other:: 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 Do you presently have visiting nurse or other home services: Yes Unable to assess alcohol history related to: Refusing to respond Alcohol intake: current Alcohol intake frequency: holidays/special occasions only Patient Tobacco Use Status: Former Tobacco user Tobacco use type: Cigarette e-Cigarette/Vaping Use: Never Used Second Hand Smoke Exposure: Yes Substance Use Type: Marijuana Advance Directives: Yes Advance Directives Information Provided: Yes Advance Directives on File: No service: No Sexual orientation: Lesbian/Good/Homosexual Physical Exam ED Vital Signs: Vital Signs - 24 hr 07/26/21 13:12 07/26/21 15:02 07/26/21 15:51 Temperature 98 F Pulse Rate 105 H 99 78 Respiratory Rate 20 20 Blood Pressure 119/72 101/52 L 101/56 L Pulse Oximetry 96 99 BMI result Body Mass Index 54.2 Appearance: Alert. Oriented X3. No acute distress. Eyes: Pupils equal, round and reactive to light. ENT: Pharynx normal. TM partially obscured by cerumen on the right. normal EAC and TM on the left Neck: Normal inspection. Neck supple. CVS: Normal heart rate and rhythm. Pulses normal. Respiratory: No respiratory distress. Breath sounds diminished at the bases but no wheezing or rales, speaking in complete sentences. Abdomen: Obese, Soft and nontender. +BS x4 Skin: Skin warm and dry. Normal skin color. Normal skin turgor. No rashes. Extremities: 3 lower extremity edema. tenderness of the lateral right ankle without deformity. normal ROM Neuro: Oriented X 3. No motor deficit. No sensory deficit. Course Course Course Narrative: 46 yo female with multiple medical comorbidities presenting with FB left ear, easily removed. She reports LE edema x1 month. No hypoxia and no rales on exam but she has 3+ LE edema. Will check CXR, labs including BNP. Reevaluation(s) Reevaluation #1: Chest x-ray hypoexpanded lungs, poor examination. Her BNP is normal. Other lab work is unremarkable, INR therapeutic. Given her exam will give a dose of IV Lasix here. No need for admission for IV diuresis. Suspect she is not compliant with her home Lasix given her mobility issues and lack of help at home. We discussed the importance of Lasix compliance, elevating her legs and decreasing salt intake. Will give a dose of IV Lasix and plan for discharge home with outpatient follow-up. Reevaluation #2: Patient stable for discharge home. BP stable. Procedures FB Removal Ear Location: ear canal (L) Foreign Body Suspected: other (cotton swab) TM intact pre-procedure: yes Foreign Body Removed: yes Foreign Body Removal Technique: instrumentation Tympanic Membrane Intact Post Procedure: Yes Patient Tolerated Procedure: well and no complications Complications: none Medical Decision Making Lab Data Result diagrams: 07/26/21 13:31 07/26/21 13:31 Labs: Lab Results 07/26/21 07/26/21 07/26/21 Range/Units 13:31 13:31 13:31 WBC 10.9 H (4.8-10.8) X10*3/uL RBC 4.83 (4.20-5.50) X10*6/uL Hgb 11.2 L (12.0-16.0) g/dl Hct 39.6 (37.0-47.0) % MCV 82.0 (80.0-98.0) fL MCH 23.2 L (27.0-33.0) pg MCHC 28.3 L (31.0-35.0) g/dl RDW 22.9 H (11.0-16.0) % Plt Count 346 (160-400) X10*3/uL MPV 9.6 (9.4-12.3) fL Immature Gran % (Auto) 0.4 (0.0-0.4) % Neut % (Auto) 68.3 (45-73) % Lymph % (Auto) 20.6 (20-40) % [place] % (Auto) 8.1 (2-11) % Eos % (Auto) 1.8 (0-4) % Baso % (Auto) 0.8 (0-2) % Lymph # (Auto) 2.2 (1.2-4.9) X10*3/uL [place] # (Auto) 0.9 (0.1-1.2) X10*3/uL Eos # (Auto) 0.2 (0.0-0.4) X10*3/uL Baso # (Auto) 0.1 (0.0-0.2) X10*3/uL Abs Immat Gran (auto) 0.04 H (0.00-0.03) X10*3/uL Absolute Neuts (auto) 7.5 (2.0-8.3) x10*3/uL Absolute Nucleated RBC 0.020 H (0.0-0.012) X10*3/uL Nucleated RBC % (auto) 0.2 (0.0-0.2) /100WBC PT 29.2 H (9.9-13.0) SEC INR 2.5 H D (0.9-1.1) APTT 46.2 H D (24.1-38.0) SEC Sodium 143 (135-145) mmol/L Potassium 4.0 (3.3-5.1) mmol/L Chloride 103 (96-108) mmol/L Carbon Dioxide 29 (22-29) mmol/L Anion Gap 15 (12-20) BUN 10 (9-16) mg/dL Creatinine 1.01 (0.5-1.4) mg/dL Estim Creat Clear Calc 108.3 Estimated GFR 60 Random Glucose 66 (60-115) mg/dL Calcium 9.0 (8.4-10.2) mg/dL Magnesium 1.7 (1.6-2.6) mg/dL B-Natriuretic Peptide (<100) pg/mL 07/26/21 Range/Units 13:31 WBC (4.8-10.8) X10*3/uL RBC (4.20-5.50) X10*6/uL Hgb (12.0-16.0) g/dl Hct (37.0-47.0) % MCV (80.0-98.0) fL MCH (27.0-33.0) pg MCHC (31.0-35.0) g/dl RDW (11.0-16.0) % Plt Count (160-400) X10*3/uL MPV (9.4-12.3) fL Immature Gran % (Auto) (0.0-0.4) % Neut % (Auto) (45-73) % Lymph % (Auto) (20-40) % [place]ville % (Auto) (2-11) % Eos % (Auto) (0-4) % Baso % (Auto) (0-2) % Lymph # (Auto) (1.2-4.9) X10*3/uL [place] # (Auto) (0.1-1.2) X10*3/uL Eos # (Auto) (0.0-0.4) X10*3/uL Baso # (Auto) (0.0-0.2) X10*3/uL Abs Immat Gran (auto) (0.00-0.03) X10*3/uL Absolute Neuts (auto) (2.0-8.3) x10*3/uL Absolute Nucleated RBC (0.0-0.012) X10*3/uL Nucleated RBC % (auto) (0.0-0.2) /100WBC PT (9.9-13.0) SEC INR (0.9-1.1) APTT (24.1-38.0) SEC Sodium (135-145) mmol/L Potassium (3.3-5.1) mmol/L Chloride (96-108) mmol/L Carbon Dioxide (22-29) mmol/L Anion Gap (12-20) BUN (9-16) mg/dL Creatinine (0.5-1.4) mg/dL Estim Creat Clear Calc Estimated GFR Random Glucose (60-115) mg/dL Calcium (8.4-10.2) mg/dL Magnesium (1.6-2.6) mg/dL B-Natriuretic Peptide 89 (<100) pg/mL Discharge Plan Discharge Clinical Impression: Bilateral edema of lower extremity, Acute foreign body of left ear Patient Disposition: Home, Self-Care Instructions: Ear Foreign Body (ED), Leg Edema (ED) Additional Instructions: Your lab workup today was unremarkable. It is IMPORTANT that you continue to take your lasix as directed. Limit your salt intake and raise/elevate your legs whenever possible. Follow up with your doctor this week. If you develop new or worsening symptoms call 911 or come back to the ER for further evaluation. Prescriptions: No Action atorvastatin 40 mg tablet 40 mg PO DAILY Qty: 30 6RF metformin 1,000 mg tablet 1,000 mg PO BID 90 Days Qty: 180 1RF (DME) FreeStyle Shelby 2 Wendell Misc See Rx Instructions .ROUTE .MEDSUPPLY Qty: 1 0RF Rx Instructions: As directed albuterol sulfate 2.5 mg /3 mL (0.083 %) Solution For Nebulization 2.5 mg inhalation QID PRN (Reason: Allergic Reaction) Qty: 3 0RF Trulicity 4.5 mg/0.5 mL pen injector 4.5 mg subcut FR 0RF furosemide 20 mg tablet 1 tab PO DAILY 0RF insulin lispro [Humalog KwikPen Insulin] 100 unit/mL insulin pen 10 unit subcut BID 0RF lisinopril 5 mg tablet 1 tab PO DAILY 0RF levothyroxine 75 mcg tablet 1 tab PO DAILY 0RF loratadine 10 mg tablet 1 tab PO DAILY 0RF metoprolol succinate 50 mg tablet extended release 24 hr 1 tab PO DAILY 0RF omeprazole 20 mg capsule,delayed release(DR/EC) 1 cap PO DAILY 0RF trazodone 50 mg tablet 1 tab PO BEDTIME 0RF lamotrigine 25 mg Tablet 25 mg PO BEDTIME Qty: 15 1RF erythromycin 5 mg/gram (0.5 %) Ointment 1 cm ophthalmic (eye) BID Qty: 1 0RF risperidone 0.5 mg Tablet 0.5 mg PO BID PRN (Reason: PTSD sx, grounding sx) Qty: 14 2RF sertraline 100 mg tablet 1.5 tab PO QAM 0RF Flovent HFA 110 mcg/actuation HFA aerosol inhaler 2 puff inhalation BID 0RF epinephrine [EpiPen] 0.3 mg/0.3 mL Auto-Injector 0.3 mg IM Q4H PRN (Reason: Anaphylaxis) 0RF medroxyprogesterone 10 mg tablet 1 tab PO DAILY 0RF clonazepam 1 mg tablet 0.5 tab PO BID PRN (Reason: anxiety) 0RF albuterol sulfate [ProAir HFA] 90 mcg/actuation HFA aerosol inhaler 2 puff inhalation Q4H PRN (Reason: Wheezing) 0RF warfarin 5 mg tablet 1 tab PO DAILY@1700 0RF Toujeo Max U-300 SoloStar 300 unit/mL (3 mL) insulin pen 45 unit subcut BEDTIME 0RF Farxiga 5 mg tablet 5 mg PO DAILY Qty: 30 6RF (DME) FreeStyle Shelby 2 Sensor Kit See Rx Instructions .ROUTE .MEDSUPPLY Qty: 2 11RF Rx Instructions: As directed every 2 weeks
[2021-07-26 13:36] LABS: MANUAL DIFF FLAG NO
[2021-07-26 13:37] LABS: Basophils Absolute Auto 0.1 X10*3/uL (0.0-0.2); Basophils Percent Auto 0.8 % (0-2); Eosinophils Absolute Auto 0.2 X10*3/uL (0.0-0.4); Eosinophils Percent Auto 1.8 % (0-4); Hematocrit 39.6 % (37.0-47.0); Hemoglobin 11.2 g/dl (12.0-16.0); Imm Gran Abs Auto 0.04 X10*3/uL (0.00-0.03); Imm Gran Pct Auto 0.4 % (0.0-0.4); Lymphocytes Absolute Auto 2.2 X10*3/uL (1.2-4.9); Lymphocytes Percent Auto 20.6 % (20-40); Mean Corpuscular HGB Conc 28.3 g/dl (31.0-35.0); Mean Corpuscular Hemoglobin 23.2 pg (27.0-33.0); Mean Platelet Volume 9.6 fL (9.4-12.3); Monocytes Absolute Auto 0.9 X10*3/uL (0.1-1.2); Monocytes Percent Auto 8.1 % (2-11); NRBC Pct Auto 0.2 /100WBC (0.0-0.2); Neutrophils Absolute Auto 7.5 x10*3/uL (2.0-8.3); Neutrophils Percent Auto 68.3 % (45-73); Platelet Count 346 X10*3/uL (160-400); Red Blood Count 4.83 X10*6/uL (4.20-5.50); Red Cell Distribution Width 22.9 % (11.0-16.0); White Blood Count 10.9 X10*3/uL (4.8-10.8)
[2021-07-26 13:46] LABS: INTERNATIONAL NORM RATIO 2.5 (0.9-1.1); Prothrombin Time 29.2 SEC (9.9-13.0)
[2021-07-26 13:49] LABS: Partial Thromboplastin Time 46.2 SEC (24.1-38.0)
[2021-07-26 13:59] LABS: Anion Gap 15 (12-20); Blood Urea Nitrogen 10 mg/dL (9-16); Carbon Dioxide 29 mmol/L (22-29); Chloride 103 mmol/L (96-108); Creatinine Clr Calc Pharmacy 108.3; Estimated Glomerular Filt Rate 60; Glucose Random 66 mg/dL (60-115); Magnesium 1.7 mg/dL (1.6-2.6); Sodium 143 mmol/L (135-145)
[2021-07-26 14:04] LABS: B Type Natriuretic Peptide 89 pg/mL (<100)
--- NOTE | 2021-07-26 14:48 | PC.NURSE ---
verbal order from ken bonilla to place pure wick to help with diuresis. pt agreeable to procedure.
[2021-07-26] MEDS: Furosemide 40 MG/4 ML VIAL IVPUSH (14:57)
[2021-07-26] MEDS: Acetaminophen 325 MG TABLET 975 MG PO (14:57)
[2021-07-26 15:02] VITALS: BP 101/52; PULSE 99; RESP 20; O2SAT 99
--- NOTE | 2021-07-26 15:05 | PC.NURSE ---
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
[2021-07-26 15:51] VITALS: BP 101/56; PULSE 78
[2021-07-26] MEDS: clonazePAM 0.5 MG TABLET PO (15:56)
[2021-07-26 16:31] VITALS: BP 107/68
== END 2021-07-26 16:51 | disposition home or self-care (01) ==
PROVIDERS: Physician Assistant; Emergency Provider Emergency Medicine; PCP Internal Medicine
DX: T16.2XXA Foreign body in left ear, initial encounter (principal); R60.0 Localized edema; E11.9 Type 2 diabetes mellitus without complications; I11.0 Hypertensive heart disease with heart failure; I50.9 Heart failure, unspecified; J96.11 Chronic respiratory failure with hypoxia; Z86.711 Personal history of pulmonary embolism; Z79.01 Long term (current) use of anticoagulants; Z99.81 Dependence on supplemental oxygen; X58.XXXA Exposure to other specified factors, initial encounter; Y93.9 Activity, unspecified; Y92.9 Unspecified place or not applicable; Y99.9 Unspecified external cause status
CPT/HCPCS: 36415; 69200; 71046; 73610; 80048; 83735; 83880; 85025; 85610; 85730; 96374; 99284; J1940

== ENCOUNTER 2021-07-28 05:54 | Emergency (ER) | payer OTHER, SELFPAY ==
[2021-07-28 06:05] VITALS: BP 109/69; PULSE 103; RESP 18; TEMP 36.8; O2SAT 98; BMI 53.2
--- NOTE | 2021-07-28 06:32 | ED.PSYCH ---
HPI - Psych General Chief Complaint: General Medical Stated Complaint: anxiety Time Seen by Provider: 07/28/21 06:31 Source: patient and old records reviewed Mode of arrival: EMS Limitations: no limitations History of Present Illness MD complaint: anxiety (O2 stopped working sats found at 85%) Onset (ago): unknown Duration: resolved prior to arrival (responded to EMS O2) History of same: Yes (states sometimes the sockets trip and she has to hit the reset button ) Relieving factors: other (O2) Exacerbating factors: none Context: other (issues with sockets - EMS wouldn't let her reset it or use different outlet she didn't want to come to ED but they told her she had to) Associated psychiatric symptoms: none Associated symptoms: denies other symptoms Treatments prior to arrival: other (oxygen) Related Data Home Medications Medication Instructions Recorded Confirmed dulaglutide 4.5 mg/0.5 mL 4.5 mg SUBCUT FR 03/24/21 07/22/21 subcutaneous pen injector (Trulicity) furosemide 20 mg tablet 1 tab PO DAILY 05/26/21 07/22/21 insulin lispro 100 unit/mL 10 unit SUBCUT BID 05/26/21 07/22/21 subcutaneous pen (Humalog KwikPen (U-100) Insulin) levothyroxine 75 mcg tablet 1 tab PO DAILY 05/26/21 07/22/21 lisinopril 5 mg tablet 1 tab PO DAILY 05/26/21 07/22/21 loratadine 10 mg tablet 1 tab PO DAILY 05/26/21 07/22/21 metoprolol succinate 50 mg 1 tab PO DAILY 05/26/21 07/22/21 tablet,extended release 24 hr omeprazole 20 mg capsule,delayed 1 cap PO DAILY 05/26/21 07/22/21 release trazodone 50 mg tablet 1 tab PO BEDTIME 05/26/21 07/22/21 insulin glargine U-300 conc 300 45 unit SUBCUT BEDTIME ml 06/23/21 07/22/21 unit/mL (3 mL) subcutaneous pen (Toujeo Max U-300 SoloStar) albuterol sulfate 90 mcg/actuation 2 puff INHALATION Q4H PRN 07/14/21 07/22/21 aerosol inhaler (ProAir HFA) clonazepam 1 mg tablet 0.5 tab PO BID PRN 07/14/21 07/22/21 medroxyprogesterone 10 mg tablet 1 tab PO DAILY 07/14/21 07/22/21 warfarin 5 mg tablet 1 tab PO DAILY@1700 07/14/21 07/22/21 epinephrine 0.3 mg/0.3 mL 0.3 mg IM Q4H PRN 07/22/21 07/22/21 injection, auto-injector (EpiPen) fluticasone propionate 110 2 puff INHALATION BID 07/22/21 07/22/21 mcg/actuation HFA aerosol inhaler (Flovent HFA) sertraline 100 mg tablet 1.5 tab PO QAM 07/22/21 07/22/21 Previous Rx's Medication Instructions Recorded albuterol sulfate 2.5 mg (3 mL) INHALATION QID PRN 11/17/20 #3 ml atorvastatin 40 mg tablet 40 mg PO DAILY #30 tab 03/30/21 erythromycin 5 mg/gram (0.5 %) eye 1 cm OPHTHALMIC (EYE) BID #1 g 06/05/21 ointment lamotrigine 25 mg tablet 25 mg PO BEDTIME #15 tab 06/05/21 risperidone 0.5 mg tablet 0.5 mg PO BID PRN #14 tab 06/05/21 metformin 1,000 mg tablet 1,000 mg PO BID 90 Days #180 tab 06/19/21 dapagliflozin 5 mg tablet (Farxiga) 5 mg PO DAILY #30 tab 06/23/21 flash glucose sensor (FreeStyle #2 ea 06/23/21 [place] 2 Sensor) flash glucose scanning reader #1 ea 07/22/21 (FreeStyle [place] 2 [place]) Allergies Allergy/AdvReac Type Severity Reaction Status Date / Time Penicillins [PENICILLINS] Allergy Intermediate HIVES Verified 07/26/21 13:16 egg [Egg] Allergy Mild SWELLING Verified 07/26/21 13:16 aspirin Allergy Unknown Unknown Verified 07/26/21 13:16 bee pollen [BEE STINGS] Allergy Unknown UNKNOWN Verified 07/26/21 13:16 lactose [LACTOSE] Allergy Unknown UNKNOWN Verified 07/26/21 13:16 latex [LATEX] Allergy Unknown HIVES Verified 07/26/21 13:16 oxycodone Allergy Unknown Unknown Verified 07/26/21 13:16 peanut [PEANUT] Allergy Unknown UNKNOWN Verified 07/26/21 13:16 penicillin V Allergy Unknown Unknown Verified 07/26/21 13:16 kiwi Allergy Anaphylaxis Verified 07/26/21 13:16 eggs,bees,latex,peanuts Allergy Unknown Unknown Uncoded 07/20/21 23:09 medical tape Allergy Unknown Unknown Uncoded 07/20/21 23:09 TAPE,PLASTIC Allergy Unknown RASH Uncoded 07/20/21 23:09 Review of Systems Review of Systems: Constitutional : No Fever, No Chills ENT/Mouth : No sore throat, No Rhinorrhea, No Swallowing Difficulty Eyes: No Eye Pain, No Swelling, No Redness Cardiovascular : No Chest Pain, positive SOB, No Orthopnea, no Edema Respiratory : No Cough, No Sputum, No Wheezing, no dyspnea Gastrointestinal : No Nausea, No Vomiting, No Diarrhea, No abdominal Pain, No Hematochezia, No Melena Genitourinary : No Dysuria, No Urinary Frequency, No Hematuria Musculoskeletal : No joint pain, No Myalgias Skin : No Skin Lesions, No rash Neuro : No Weakness, No Numbness, No Dizziness, No Headache Psych : No Anxiety/Panic, No Depression Heme/Lymph: No Bruising, No Lymphadenopathy Endocrine : No Polyuria, No Polydipsia All other systems reviewed and are negative PMFSH Past Medical History Medical History Acute hyperglycemia Anxiety Asthma BMI 50.0-59.9, adult Cardiomyopathy CHF (congestive heart failure) Depression Diabetes mellitus, type 2 Diabetes type 2, uncontrolled DVT (deep vein thrombosis) in Essential hypertension Gallstones Hyperlipidemia LDL goal <70 Hypertension Hypothyroidism Irritable bowel Mood disorder Obesity due to excess calories ROGERIO (obstructive sleep apnea) Pancreatitis Proteinuria PTSD (post-traumatic stress disorder) PTSD (post-traumatic stress disorder) Pulmonary embolism Recurrent major depression Surgical History History of dental surgery History of open heart surgery Hx of hernia repair Hx of removal of cyst Family History Family History Paternal Grandmother Diabetes Social History Social History Household Members: Unknown / Unable to assess Housing: Apartment Housing Other:: Has REAR ADMIRAL twice a day. Do you presently have visiting nurse or other home services: Yes Unable to assess alcohol history related to: Refusing to respond Alcohol intake: current Alcohol intake frequency: holidays/special occasions only Patient Tobacco Use Status: Former Tobacco user Tobacco use type: Cigarette e-Cigarette/Vaping Use: Never Used Second Hand Smoke Exposure: Yes Substance Use Type: Marijuana Advance Directives: No service: No Sexual orientation: Lesbian/Good/Homosexual Physical Exam Vital Signs: Vital Signs: Last Vital Signs Temp 98.3 F 07/28/21 06:05 Pulse 103 H 07/28/21 06:05 Resp 18 07/28/21 06:05 BP 109/69 07/28/21 06:05 Pulse Ox 98 07/28/21 06:05 Oxygen Flow Rate 4 07/28/21 06:05 BMI result Body Mass Index 53.2 Appearance: Alert. Oriented X3. No acute distress. Eyes: Pupils equal, round and reactive to light. ENT: Pharynx normal. Neck: Normal inspection. Neck supple. CVS: Normal heart rate and rhythm. Pulses normal. Respiratory: No respiratory distress. Breath sounds mildly decreased no wheezes Abdomen: Soft and nontender. Skin: Skin warm and dry. Normal skin color. Normal skin turgor. Extremities: No lower extremity edema. No calf ttp Neuro: Oriented X 3. No motor deficit. No sensory deficit. MDM - Psych MDM Narrative Medical decision making narrative: 46 yo female with hx of anxiety, HLD, DM, PE on coumadin, chronic resp failure on home O2 reports that her O2 stopped working in the middle of the night - couldn't breath sats 85% EMS notes she recovered quickly with O2. The patient notes that the outlet was triggered and she has other outlets working she just didn't know that's what happened. She just has to hit the reset button. She asked EMS if she could use the other plugs in her apartment but they made her come to the hospital. She wants to leave now and is asking to go home. Declines care 96% on her home O2. Discharge Plan Discharge Clinical Impression: Anxiety Patient Disposition: Home, Self-Care Instructions: Anxiety (ED) Additional Instructions: return to ED for any worsening symptoms or concerns please check your outlet when you get home Prescriptions: No Action atorvastatin 40 mg tablet 40 mg PO DAILY Qty: 30 6RF metformin 1,000 mg tablet 1,000 mg PO BID 90 Days Qty: 180 1RF (DME) FreeStyle [place] 2 [place] Misc See Rx Instructions .ROUTE .MEDSUPPLY Qty: 1 0RF Rx Instructions: As directed albuterol sulfate 2.5 mg /3 mL (0.083 %) Solution For Nebulization 2.5 mg inhalation QID PRN (Reason: Allergic Reaction) Qty: 3 0RF Trulicity 4.5 mg/0.5 mL pen injector 4.5 mg subcut FR 0RF furosemide 20 mg tablet 1 tab PO DAILY 0RF insulin lispro [Humalog KwikPen Insulin] 100 unit/mL insulin pen 10 unit subcut BID 0RF lisinopril 5 mg tablet 1 tab PO DAILY 0RF levothyroxine 75 mcg tablet 1 tab PO DAILY 0RF loratadine 10 mg tablet 1 tab PO DAILY 0RF metoprolol succinate 50 mg tablet extended release 24 hr 1 tab PO DAILY 0RF omeprazole 20 mg capsule,delayed release(DR/EC) 1 cap PO DAILY 0RF trazodone 50 mg tablet 1 tab PO BEDTIME 0RF lamotrigine 25 mg Tablet 25 mg PO BEDTIME Qty: 15 1RF erythromycin 5 mg/gram (0.5 %) Ointment 1 cm ophthalmic (eye) BID Qty: 1 0RF risperidone 0.5 mg Tablet 0.5 mg PO BID PRN (Reason: PTSD sx, grounding sx) Qty: 14 2RF sertraline 100 mg tablet 1.5 tab PO QAM 0RF Flovent HFA 110 mcg/actuation HFA aerosol inhaler 2 puff inhalation BID 0RF epinephrine [EpiPen] 0.3 mg/0.3 mL Auto-Injector 0.3 mg IM Q4H PRN (Reason: Anaphylaxis) 0RF medroxyprogesterone 10 mg tablet 1 tab PO DAILY 0RF clonazepam 1 mg tablet 0.5 tab PO BID PRN (Reason: anxiety) 0RF albuterol sulfate [ProAir HFA] 90 mcg/actuation HFA aerosol inhaler 2 puff inhalation Q4H PRN (Reason: Wheezing) 0RF warfarin 5 mg tablet 1 tab PO DAILY@1700 0RF Toujeo Max U-300 SoloStar 300 unit/mL (3 mL) insulin pen 45 unit subcut BEDTIME 0RF Farxiga 5 mg tablet 5 mg PO DAILY Qty: 30 6RF (DME) FreeStyle [place] 2 Sensor Kit See Rx Instructions .ROUTE .MEDSUPPLY Qty: 2 11RF Rx Instructions: As directed every 2 weeks
== END 2021-07-28 09:50 | disposition home or self-care (01) ==
PROVIDERS: Emergency Provider Emergency Medicine; PCP Internal Medicine
DX: F41.1 Generalized anxiety disorder (principal); F43.0 Acute stress reaction; J96.10 Chronic respiratory failure, unspecified whether with hypoxia or hypercapnia; E11.9 Type 2 diabetes mellitus without complications; Z79.01 Long term (current) use of anticoagulants; Z79.899 Other long term (current) drug therapy; Z99.81 Dependence on supplemental oxygen; Z87.891 Personal history of nicotine dependence
CPT/HCPCS: 99282; 99283

== ENCOUNTER 2021-08-08 01:49 | Emergency (ER) | payer OTHER, SELFPAY ==
[2021-08-08 02:00] VITALS: BP 110/80; PULSE 104; O2SAT 96; BMI 45.1
[2021-08-08 02:19] VITALS: BP 96/65; PULSE 91; RESP 16; TEMP 36.7; O2SAT 99
[2021-08-08 02:28] LABS: Glucose, Whole Blood 61 mg/dL (60-115)
[2021-08-08 02:49] VITALS: BP 103/51; PULSE 92; RESP 20; TEMP 36.8; O2SAT 90
--- NOTE | 2021-08-08 03:21 | PC.NURSE ---
POC @ 0218 was 61, 4 ounces of OJ administered/accepted by patient, offered snacks, [facility] referral completed/confirmed/pending ETA, will continue to monitor.
[2021-08-08 03:26] LABS: COVID-19 Test Negative (Negative)
[2021-08-08 03:33] LABS: INTERNATIONAL NORM RATIO 3.3 (0.9-1.1); Prothrombin Time 38.8 SEC (9.9-13.0)
--- NOTE | 2021-08-08 05:42 | ED.PSYCH ---
HPI - Psych General Chief Complaint: Psychiatric Symptoms Stated Complaint: Anxiety Time Seen by Provider: 08/08/21 05:42 Source: patient Mode of arrival: EMS History of Present Illness HPI Narrative: 46-year-old female arrives via EMS after patient complain of anxiety about her Coumadin levels and ?mental health issues?. Patient reports suicidal ideation as per the triage note, but difficult to redirect the patient to establish exactly what brought her in. Related Data Home Medications Medication Instructions Recorded Confirmed dulaglutide 4.5 mg/0.5 mL 4.5 mg SUBCUT FR 03/24/21 08/08/21 subcutaneous pen injector (Trulicity) furosemide 20 mg tablet 1 tab PO DAILY 05/26/21 08/08/21 insulin lispro 100 unit/mL 10 unit SUBCUT BID 05/26/21 08/08/21 subcutaneous pen (Humalog KwikPen (U-100) Insulin) levothyroxine 75 mcg tablet 1 tab PO DAILY 05/26/21 08/08/21 lisinopril 5 mg tablet 1 tab PO DAILY 05/26/21 08/08/21 loratadine 10 mg tablet 1 tab PO DAILY 05/26/21 08/08/21 metoprolol succinate 50 mg 1 tab PO DAILY 05/26/21 08/08/21 tablet,extended release 24 hr omeprazole 20 mg capsule,delayed 1 cap PO DAILY 05/26/21 08/08/21 release trazodone 50 mg tablet 1 tab PO BEDTIME 05/26/21 08/08/21 insulin glargine U-300 conc 300 45 unit SUBCUT BEDTIME ml 06/23/21 08/08/21 unit/mL (3 mL) subcutaneous pen (Toujeo Max U-300 SoloStar) albuterol sulfate 90 mcg/actuation 2 puff INHALATION Q4H PRN 07/14/21 08/08/21 aerosol inhaler (ProAir HFA) clonazepam 1 mg tablet 0.5 tab PO BID PRN 07/14/21 08/08/21 medroxyprogesterone 10 mg tablet 1 tab PO DAILY 07/14/21 08/08/21 warfarin 5 mg tablet 1 tab PO DAILY@1700 07/14/21 08/08/21 fluticasone propionate 110 2 puff INHALATION BID 07/22/21 08/08/21 mcg/actuation HFA aerosol inhaler (Flovent HFA) sertraline 100 mg tablet 1.5 tab PO QAM 07/22/21 08/08/21 Previous Rx's Medication Instructions Recorded albuterol sulfate 2.5 mg (3 mL) INHALATION QID PRN 11/17/20 #3 ml atorvastatin 40 mg tablet 40 mg PO DAILY #30 tab 03/30/21 lamotrigine 25 mg tablet 25 mg PO BEDTIME #15 tab 06/05/21 risperidone 0.5 mg tablet 0.5 mg PO BID PRN #14 tab 06/05/21 metformin 1,000 mg tablet 1,000 mg PO BID 90 Days #180 tab 06/19/21 dapagliflozin 5 mg tablet (Farxiga) 5 mg PO DAILY #30 tab 06/23/21 flash glucose sensor (FreeStyle #2 ea 06/23/21 [place] 2 Sensor) flash glucose scanning reader #1 ea 07/22/21 (FreeStyle [place] 2 [place]) Allergies Allergy/AdvReac Type Severity Reaction Status Date / Time Penicillins [PENICILLINS] Allergy Intermediate HIVES Verified 07/26/21 13:16 egg [Egg] Allergy Mild SWELLING Verified 07/26/21 13:16 aspirin Allergy Unknown Unknown Verified 07/26/21 13:16 bee pollen [BEE STINGS] Allergy Unknown UNKNOWN Verified 07/26/21 13:16 lactose [LACTOSE] Allergy Unknown UNKNOWN Verified 07/26/21 13:16 latex [LATEX] Allergy Unknown HIVES Verified 07/26/21 13:16 oxycodone Allergy Unknown Unknown Verified 07/26/21 13:16 peanut [PEANUT] Allergy Unknown UNKNOWN Verified 07/26/21 13:16 penicillin V Allergy Unknown Unknown Verified 07/26/21 13:16 kiwi Allergy Anaphylaxis Verified 07/26/21 13:16 eggs,bees,latex,peanuts Allergy Unknown Unknown Uncoded 07/20/21 23:09 medical tape Allergy Unknown Unknown Uncoded 07/20/21 23:09 TAPE,PLASTIC Allergy Unknown RASH Uncoded 07/20/21 23:09 Review of Systems Review of Systems: Pertinent positives and negatives as stated in HPI. [facility] Past Medical History Source: nursing notes reviewed Medical History Acute hyperglycemia Anxiety Asthma BMI 50.0-59.9, adult Cardiomyopathy CHF (congestive heart failure) Depression Diabetes mellitus, type 2 Diabetes type 2, uncontrolled DVT (deep vein thrombosis) in Essential hypertension Gallstones Hyperlipidemia LDL goal <70 Hypertension Hypothyroidism Irritable bowel Mood disorder Obesity due to excess calories ROGERIO (obstructive sleep apnea) Pancreatitis Proteinuria PTSD (post-traumatic stress disorder) PTSD (post-traumatic stress disorder) Pulmonary embolism Recurrent major depression Surgical History History of dental surgery History of open heart surgery Hx of hernia repair Hx of removal of cyst Family History Family History Paternal Grandmother Diabetes Social History Social History Household Members: Unknown / Unable to assess Housing: Apartment Housing Other:: Has REGULATORY COORDINATOR twice a day. Do you presently have visiting nurse or other home services: Yes Unable to assess alcohol history related to: Refusing to respond Alcohol intake: current Alcohol intake frequency: holidays/special occasions only Patient Tobacco Use Status: Former Tobacco user Tobacco use type: Cigarette e-Cigarette/Vaping Use: Never Used Second Hand Smoke Exposure: Yes Substance Use Type: Marijuana Advance Directives: No Advance Directives Information Provided: No service: No Sexual orientation: Lesbian/Good/Homosexual Physical Exam Vital Signs: Vital Signs: Last Vital Signs Temp 98.3 F 08/08/21 02:49 Pulse 92 08/08/21 02:49 Resp 20 08/08/21 02:49 BP 112/60 08/08/21 06:00 Pulse Ox 90 L 08/08/21 06:00 BMI result Body Mass Index 45.1 VITAL SIGNS: Reviewed. GENERAL: Elevated BM,well nourished, in no acute distress. HEAD: Normocephalic/atraumatic EYES: PERRLA, EOMI EARS: Ext canals without abnormality OROPHARYNX: no oral lesions noted, posterior pharynx clear LUNGS: Normal breath sounds. No adventitious sounds or accessory muscle use. SpO2<90-92> CARDIOVASCULAR: Regular rate and rhythm without noted murmurs ABDOMEN: Soft, non-tender, non-distended with bowel sounds. NEUROLOGIC: Alert and oriented x 4. Strength and sensation to light touch were grossly intact x 4. PSYCH: Depressed affect, anxiety Course Course Course Narrative: 46-year-old female with multiple medical comorbidities and currently on Coumadin with an INR-3.3. Otherwise, patient is clinically cleared for further evaluation by the crisis team. Coumadin will need to be held and the INR checked every 24 hours and may be restarted when back in normal limits (2-3). Reevaluation(s) Reevaluation #1: Patient placed in physician observation because the patient needed more time for crisis eval. At the time observation was started the patient's vital signs were stable, patient is alert and oriented, neuro: Nonfocal, CV RRR, lungs clear Time: 07:10 MDM - Psych Lab Data Labs: Lab Results 08/08/21 08/08/21 08/08/21 Range/Units 02:18 03:02 03:21 PT 38.8 H (9.9-13.0) SEC INR 3.3 H (0.9-1.1) POC Glucose 61 (60-115) mg/dL COVID-19 ([place]) Negative (Negative) COVID-19 Clin Com See Note Discharge Plan Discharge Clinical Impression: Chronic post-traumatic stress disorder (PTSD), Diabetes mellitus, type 2, Essential hypertension, Depression, Acute anxiety, Chronic anticoagulation Patient Disposition: Still a Patient Prescriptions: No Action atorvastatin 40 mg tablet 40 mg PO DAILY Qty: 30 6RF metformin 1,000 mg tablet 1,000 mg PO BID 90 Days Qty: 180 1RF (DME) FreeStyle [place] 2 [place] [facility] [place] Instructions .ROUTE .MEDSUPPLY Qty: 1 0RF Rx Instructions: As directed albuterol sulfate 2.5 mg /3 mL (0.083 %) Solution For Nebulization 2.5 mg inhalation QID PRN (Reason: Allergic Reaction) Qty: 3 0RF Trulicity 4.5 mg/0.5 mL pen injector 4.5 mg subcut FR 0RF furosemide 20 mg tablet 1 tab PO DAILY 0RF insulin lispro [Humalog KwikPen Insulin] 100 unit/mL insulin pen 10 unit subcut BID 0RF lisinopril 5 mg tablet 1 tab PO DAILY 0RF levothyroxine 75 mcg tablet 1 tab PO DAILY 0RF loratadine 10 mg tablet 1 tab PO DAILY 0RF metoprolol succinate 50 mg tablet extended release 24 hr 1 tab PO DAILY 0RF omeprazole 20 mg capsule,delayed release(DR/EC) 1 cap PO DAILY 0RF trazodone 50 mg tablet 1 tab PO BEDTIME 0RF lamotrigine 25 mg Tablet 25 mg PO BEDTIME Qty: 15 1RF risperidone 0.5 mg Tablet 0.5 mg PO BID PRN (Reason: PTSD sx, grounding sx) Qty: 14 2RF sertraline 100 mg tablet 1.5 tab PO QAM 0RF Flovent HFA 110 mcg/actuation HFA aerosol inhaler 2 puff inhalation BID 0RF medroxyprogesterone 10 mg tablet 1 tab PO DAILY 0RF clonazepam 1 mg tablet 0.5 tab PO BID PRN (Reason: anxiety) 0RF albuterol sulfate [ProAir HFA] 90 mcg/actuation HFA aerosol inhaler 2 puff inhalation Q4H PRN (Reason: Wheezing) 0RF warfarin 5 mg tablet 1 tab PO DAILY@1700 0RF Toujeo Max U-300 [place] 300 unit/mL (3 mL) insulin pen 45 unit subcut BEDTIME 0RF Farxiga 5 mg tablet 5 mg PO DAILY Qty: 30 6RF (DME) FreeStyle [place] 2 Sensor Kit See Rx Instructions .ROUTE .MEDSUPPLY Qty: 2 11RF Rx Instructions: As directed every 2 weeks
[2021-08-08 06:00] VITALS: BP 112/60; O2SAT 90
[2021-08-08 07:06] LABS: Glucose, Whole Blood 146 mg/dL (60-115)
[2021-08-08 07:58] LABS: Appearance Urine CLEAR; Color Urine YELLOW; Glucose Urine UA >=1000 MG/DL (NEG); Leukocyte Esterase Urine NEG (NEG); Nitrite Urine NEG (NEG); Urine Blood NEG (NEG); Urine Ketones 5 MG/DL (NEG); Urine Protein TRACE MG/DL (NEG-TRACE)
[2021-08-08 08:10] LABS: Squamous Epithelial Cell Urine 1+ /LPF
[2021-08-08 08:11] LABS: RBC Urine 0 /HPF (0); WBC Urine 0 /HPF (0-4)
[2021-08-08 08:24] VITALS: BP 144/87; PULSE 94; RESP 16; O2SAT 90
[2021-08-08 08:31] LABS: Amphetamine Screen Urine Not Detected (Not Detect); Barbiturates, Urine Not Detected (Not Detect); Benzodiazepines Screen Urine Not Detected (Not Detect); Cannabinoid Screen Urine Not Detected (Not Detect); Cocaine Screen Urine Not Detected (Not Detect); Fentanyl, urine Not Detected (Not Detect); Opiate Screen Urine Not Detected (Not Detect); Phencyclidine Screen Urine Not Detected (Not Detect)
[2021-08-08] MEDS: Loratadine 10 MG TABLET PO (09:04)
[2021-08-08] MEDS: Atorvastatin Calcium 40 MG TABLET PO (09:04)
[2021-08-08] MEDS: Levothyroxine Sodium 75 MCG TABLET PO (09:04)
[2021-08-08] MEDS: Omeprazole 20 MG CAPSULE.DR PO (09:04)
[2021-08-08] MEDS: Sertraline HCL 50 MG TABLET 150 MG PO (09:04)
[2021-08-08] MEDS: metFORMIN HCl 1,000 MG TABLET 1000 MG PO (09:04)
[2021-08-08] MEDS: Furosemide 20 MG TABLET PO (09:04)
[2021-08-08] MEDS: lisinopriL 5 MG TABLET PO (09:05)
[2021-08-08] MEDS: Metoprolol Succinate ER 50 MG TAB.ER.24H PO (09:07)
[2021-08-08 10:55] LABS: Glucose, Whole Blood 165 mg/dL (60-115)
[2021-08-08] MEDS: Empagliflozin 10 MG TABLET PO (11:11)
[2021-08-08] MEDS: medroxyPROGESTERone Acetate 5 MG TABLET 10 MG PO (11:11)
[2021-08-08] MEDS: clonazePAM 0.5 MG TABLET PO (13:22)
[2021-08-08] MEDS: Acetaminophen 325 MG TABLET 975 MG PO (13:23)
[2021-08-08 13:26] LABS: Glucose, Whole Blood 130 mg/dL (60-115)
== END 2021-08-08 15:13 | disposition home or self-care (01) ==
PROVIDERS: Emergency Provider Student in an Organized Health Care Education/Training Program; PCP Internal Medicine
DX: F41.9 Anxiety disorder, unspecified (principal); F32.A Depression, unspecified; F43.12 Post-traumatic stress disorder, chronic; E11.9 Type 2 diabetes mellitus without complications; I10 Essential (primary) hypertension; Z79.01 Long term (current) use of anticoagulants; Z79.4 Long term (current) use of insulin; Z79.899 Other long term (current) drug therapy; Z86.711 Personal history of pulmonary embolism; Z86.718 Personal history of other venous thrombosis and embolism; Z20.822 Contact with and (suspected) exposure to COVID-19
CPT/HCPCS: 36415; 80307; 81001; 82947; 85610; 87635; 99284

== ENCOUNTER 2021-08-13 03:48 | Emergency (ER) | payer OTHER, SELFPAY ==
[2021-08-13 03:52] VITALS: BP 106/57; BP 108/50; PULSE 100; PULSE 106; RESP 20; TEMP 35.9; O2SAT 96; O2SAT 97; BMI 53.4
--- NOTE | 2021-08-13 05:58 | ED.GENADULT ---
HPI - General Adult General Chief complaint: Back Pain/Injury Stated complaint: back pain Time Seen by Provider: 08/13/21 05:56 Source: patient and EMS Mode of arrival: EMS Limitations: no limitations History of Present Illness HPI narrative: 46-year-old female with borderline personality disorder, PTSD, CHF, PE on Coumadin, chronic hypoxic respiratory failure on oxygen, DM 2. Patient came in for evaluation of back pain, pain is chronic for few months, no urinary incontinence, able to ambulate. Related Data Home Medications Medication Instructions Recorded Confirmed dulaglutide 4.5 mg/0.5 mL 4.5 mg SUBCUT FR 03/24/21 08/08/21 subcutaneous pen injector (Trulicity) furosemide 20 mg tablet 1 tab PO DAILY 05/26/21 08/08/21 insulin lispro 100 unit/mL 10 unit SUBCUT BID 05/26/21 08/08/21 subcutaneous pen (Humalog KwikPen (U-100) Insulin) levothyroxine 75 mcg tablet 1 tab PO DAILY 05/26/21 08/08/21 lisinopril 5 mg tablet 1 tab PO DAILY 05/26/21 08/08/21 loratadine 10 mg tablet 1 tab PO DAILY 05/26/21 08/08/21 metoprolol succinate 50 mg 1 tab PO DAILY 05/26/21 08/08/21 tablet,extended release 24 hr omeprazole 20 mg capsule,delayed 1 cap PO DAILY 05/26/21 08/08/21 release trazodone 50 mg tablet 1 tab PO BEDTIME 05/26/21 08/08/21 insulin glargine U-300 conc 300 45 unit SUBCUT BEDTIME ml 06/23/21 08/08/21 unit/mL (3 mL) subcutaneous pen (Toujeo Max U-300 SoloStar) albuterol sulfate 90 mcg/actuation 2 puff INHALATION Q4H PRN 07/14/21 08/08/21 aerosol inhaler (ProAir HFA) clonazepam 1 mg tablet 0.5 tab PO BID PRN 07/14/21 08/08/21 medroxyprogesterone 10 mg tablet 1 tab PO DAILY 07/14/21 08/08/21 warfarin 5 mg tablet 1 tab PO DAILY@1700 07/14/21 08/08/21 fluticasone propionate 110 2 puff INHALATION BID 07/22/21 08/08/21 mcg/actuation HFA aerosol inhaler (Flovent HFA) sertraline 100 mg tablet 1.5 tab PO QAM 07/22/21 08/08/21 Previous Rx's Medication Instructions Recorded albuterol sulfate 2.5 mg (3 mL) INHALATION QID PRN 11/17/20 #3 ml atorvastatin 40 mg tablet 40 mg PO DAILY #30 tab 03/30/21 lamotrigine 25 mg tablet 25 mg PO BEDTIME #15 tab 06/05/21 risperidone 0.5 mg tablet 0.5 mg PO BID PRN #14 tab 06/05/21 metformin 1,000 mg tablet 1,000 mg PO BID 90 Days #180 tab 06/19/21 dapagliflozin 5 mg tablet (Farxiga) 5 mg PO DAILY #30 tab 06/23/21 flash glucose sensor (FreeStyle #2 ea 06/23/21 Shelby 2 Sensor) flash glucose scanning reader #1 ea 07/22/21 (FreeStyle [place] 2 [place]) Allergies Allergy/AdvReac Type Severity Reaction Status Date / Time Penicillins [PENICILLINS] Allergy Intermediate HIVES Verified 07/26/21 13:16 egg [Egg] Allergy Mild SWELLING Verified 07/26/21 13:16 aspirin Allergy Unknown Unknown Verified 07/26/21 13:16 bee pollen [BEE STINGS] Allergy Unknown UNKNOWN Verified 07/26/21 13:16 lactose [LACTOSE] Allergy Unknown UNKNOWN Verified 07/26/21 13:16 latex [LATEX] Allergy Unknown HIVES Verified 07/26/21 13:16 oxycodone Allergy Unknown Unknown Verified 07/26/21 13:16 peanut [PEANUT] Allergy Unknown UNKNOWN Verified 07/26/21 13:16 penicillin V Allergy Unknown Unknown Verified 07/26/21 13:16 kiwi Allergy Anaphylaxis Verified 07/26/21 13:16 eggs,bees,latex,peanuts Allergy Unknown Unknown Uncoded 07/20/21 23:09 medical tape Allergy Unknown Unknown Uncoded 07/20/21 23:09 TAPE,PLASTIC Allergy Unknown RASH Uncoded 07/20/21 23:09 Review of Systems Review of Systems: All other systems are reviewed and are negative Constitutional: Reports as per HPI and Reports no additional constitutional complaints Eyes: Reports as per HPI and Reports no additional eye complaints Reports system reviewed and no additional complaints, except as documented Cardiovascular: Reports as per HPI and Reports no additional cardiovascular complaints Respiratory: Reports as per HPI and Reports no additional respiratory complaints Gastrointestinal: Reports as per HPI and Reports no additional gastrointestinal complaints Genitourinary: Reports no additional female genitourinary complaints Musculoskeletal: Reports no additional musculoskeletal complaints Skin/Breast: Reports system reviewed and no additional complaints, except as docu Psychiatric: Reports no additional psychiatric complaints Endocrine: Reports no additional endocrine complaints Hematologic/Lymphatic: Reports no additional hematologic/lymphatic complaints Allergic/Immunologic: Reports no additional allergic/immunologic complaints Reports system reviewed and no additional complaints, except as documented and Reports Abnormal speech present [facility] Past Medical History Medical History Acute hyperglycemia Anxiety Asthma BMI 50.0-59.9, adult Cardiomyopathy CHF (congestive heart failure) Depression Diabetes mellitus, type 2 Diabetes type 2, uncontrolled DVT (deep vein thrombosis) in Essential hypertension Gallstones Hyperlipidemia LDL goal <70 Hypertension Hypothyroidism Irritable bowel Mood disorder Obesity due to excess calories ROGERIO (obstructive sleep apnea) Pancreatitis Proteinuria PTSD (post-traumatic stress disorder) PTSD (post-traumatic stress disorder) Pulmonary embolism Recurrent major depression Surgical History History of dental surgery History of open heart surgery Hx of hernia repair Hx of removal of cyst Family History Family History Paternal Grandmother Diabetes Social History Social History Household Members: Unknown / Unable to assess Housing: Apartment Housing Other:: Has OPTICAL ENGINEER twice a day. Do you presently have visiting nurse or other home services: Yes Unable to assess alcohol history related to: Refusing to respond Alcohol intake: current Alcohol intake frequency: holidays/special occasions only Patient Tobacco Use Status: Former Tobacco user Tobacco use type: Cigarette e-Cigarette/Vaping Use: Never Used Second Hand Smoke Exposure: Yes Substance Use Type: Marijuana service: No Sexual orientation: Lesbian/Good/Homosexual Physical Exam ED Vital Signs: Vital Signs - 24 hr 08/13/21 03:52 Temperature 96.7 F L Pulse Rate 100 Respiratory Rate 20 Blood Pressure 108/50 L Pulse Oximetry 96 BMI result Body Mass Index 53.4 Vital signs have been reviewed as appeared to be correct. Blood pressure normal. Heart rate normal. Respiration rate normal. Temperature normal. Oxygen saturation normal. Appearance: Alert. Oriented X3. No acute distress. Head: Normal external exam. Normocephalic. Atraumatic. No Belcher signs noted. No raccoon eyes noted Eyes: PERRLA. EOMI. Conjunctiva and sclera normal. Eyelids normal. ENT: TM's Normal. Pharynx normal. Uvula midline. Moist mucous membranes. No trismus noted. No drooling noted. No muffled voice noted. Neck: Normal inspection. Neck supple. FROM. No adenopathy. Thyroid Normal. No meningeal signs. No neck mass noted. CVS: Normal heart rate and rhythm. Heart sound normal. No murmurs noted. Pulses normal throughout. Respiratory: No respiratory distress. Painless inspiration. Breath sounds normal. No wheezes/rales/rhonchi noted. Chest nontender. No accessory muscle usage noted or decreased air movement noted. Abdomen: Soft and nontender. Bowel sounds normal in all 4 quadrants. No distention noted. No organomegaly noted. No visible injury noted. Back: No CVA tenderness. Full range of motion noted. Skin: Skin warm and dry. Normal skin color. Normal skin turgor. No rashes/lesions/lacerations noted. Extremities: No lower extremity edema. Extremities exhibit normal range of motion. Extremities nontender. Neuro: Oriented X 3. Cranial nerve exam: II-XII are grossly intact No motor deficit. No sensory deficit. Reflexes normal. Course Course Course Narrative: Assessment and plan. Acute on chronic back pain, no neurological deficit, patient feels better with oxycodone in the emergency department, discharged the patient to follow-up with PCP. Discharge Plan Discharge Clinical Impression: Back pain Patient Disposition: Home, Self-Care Instructions: Back Pain (ED) Additional Instructions: Follow-up with your primary doctor. Prescriptions: No Action atorvastatin 40 mg tablet 40 mg PO DAILY Qty: 30 6RF metformin 1,000 mg tablet 1,000 mg PO BID 90 Days Qty: 180 1RF (DME) Cognitive Codee 2 [place] Misc See Rx Instructions .ROUTE .MEDSUPPLY Qty: 1 0RF Rx Instructions: As directed albuterol sulfate 2.5 mg /3 mL (0.083 %) Solution For Nebulization 2.5 mg inhalation QID PRN (Reason: Allergic Reaction) Qty: 3 0RF Trulicity 4.5 mg/0.5 mL pen injector 4.5 mg subcut FR 0RF furosemide 20 mg tablet 1 tab PO DAILY 0RF insulin lispro [Humalog KwikPen Insulin] 100 unit/mL insulin pen 10 unit subcut BID 0RF lisinopril 5 mg tablet 1 tab PO DAILY 0RF levothyroxine 75 mcg tablet 1 tab PO DAILY 0RF loratadine 10 mg tablet 1 tab PO DAILY 0RF metoprolol succinate 50 mg tablet extended release 24 hr 1 tab PO DAILY 0RF omeprazole 20 mg capsule,delayed release(DR/EC) 1 cap PO DAILY 0RF trazodone 50 mg tablet 1 tab PO BEDTIME 0RF lamotrigine 25 mg Tablet 25 mg PO BEDTIME Qty: 15 1RF risperidone 0.5 mg Tablet 0.5 mg PO BID PRN (Reason: PTSD sx, grounding sx) Qty: 14 2RF sertraline 100 mg tablet 1.5 tab PO QAM 0RF Flovent HFA 110 mcg/actuation HFA aerosol inhaler 2 puff inhalation BID 0RF medroxyprogesterone 10 mg tablet 1 tab PO DAILY 0RF clonazepam 1 mg tablet 0.5 tab PO BID PRN (Reason: anxiety) 0RF albuterol sulfate [ProAir HFA] 90 mcg/actuation HFA aerosol inhaler 2 puff inhalation Q4H PRN (Reason: Wheezing) 0RF warfarin 5 mg tablet 1 tab PO DAILY@1700 0RF Toujeo Max U-300 SoloStar 300 unit/mL (3 mL) insulin pen 45 unit subcut BEDTIME 0RF Farxiga 5 mg tablet 5 mg PO DAILY Qty: 30 6RF (DME) FreeStyle Shelby 2 Sensor Kit See Rx Instructions .ROUTE .MEDSUPPLY Qty: 2 11RF Rx Instructions: As directed every 2 weeks
[2021-08-13] MEDS: oxyCODONE HCl Immed Release 5 MG TABLET PO (06:48)
--- NOTE | 2021-08-13 06:56 | PC.NURSE ---
Called Cris maldonado 2and left voicemail for patient
[2021-08-13 08:10] LABS: Glucose, Whole Blood 76 mg/dL (60-115)
--- NOTE | 2021-08-13 08:29 | PC.NURSE ---
pt encouraged to eat mult time for poc in 70's. keeps lying down to rest.
--- NOTE | 2021-08-13 10:20 | PC.NURSE ---
vm left at [facility] team office for ride home.
--- NOTE | 2021-08-13 10:48 | PC.NURSE ---
This rn has been trying to arrange for transport home. Pt has been crying in hallway because shouts from other patients are triggering her. Program voicemails have not been returned.
[2021-08-13 11:08] VITALS: BP 131/68; PULSE 97; RESP 18; O2SAT 99
--- NOTE | 2021-08-13 11:18 | PC.NURSE ---
pt has been ambulatory to [facility] w/o assistance, has MCCRARY but recovers well. using 3l NC. awaits chair van transport home.
[2021-08-13] MEDS: Sertraline HCL 50 MG TABLET 150 MG PO (11:55)
[2021-08-13] MEDS: clonazePAM 0.5 MG TABLET PO (11:56)
[2021-08-13] MEDS: Levothyroxine Sodium 75 MCG TABLET PO (11:56)
[2021-08-13] MEDS: metFORMIN HCl 1,000 MG TABLET 1000 MG PO (11:56)
[2021-08-13] MEDS: Metoprolol Succinate ER 50 MG TAB.ER.24H PO (11:56)
[2021-08-13] MEDS: Furosemide 20 MG TABLET PO (11:56)
== END 2021-08-13 12:10 | disposition home or self-care (01) ==
LOC: HO.ED 06:19
PROVIDERS: Emergency Provider Emergency Medicine; PCP Internal Medicine
DX: M54.50 Low back pain, unspecified (principal); Z86.718 Personal history of other venous thrombosis and embolism; Z79.01 Long term (current) use of anticoagulants; Z79.899 Other long term (current) drug therapy; Z87.891 Personal history of nicotine dependence
CPT/HCPCS: 82947; 99283; 99284

== ENCOUNTER → 2021-09-22 14:23 | Outpatient (BNVA) | payer OTHER, SELFPAY | PROVIDERS: PCP Internal Medicine; Visit Provider Nurse Practitioner Gerontology | DX: E11.65 Type 2 diabetes mellitus with hyperglycemia (principal); E78.5 Hyperlipidemia, unspecified; E66.01 Morbid (severe) obesity due to excess calories; I10 Essential (primary) hypertension; Z68.43 Body mass index [BMI] 50.0-59.9, adult; Z79.4 Long term (current) use of insulin | CPT/HCPCS: 82947; 83036; 99212 ==

== ENCOUNTER 2022-03-01 13:46 | Emergency (ER) | payer OTHER, SELFPAY ==
[2022-03-01 14:05] VITALS: BP 141/80; BP 151/66; PULSE 90; RESP 18; TEMP 37.1; O2SAT 96; BMI 51.6
--- OUTSIDE RECORDS SUMMARY | 2022-03-01 14:16 | XMS_ITS | Continuity of Care Document ---
:1975 Author Organization [facility] Address [address] [place] [id number]- Care Team Providers Name Role Phone Renee Saavedra MD Primary Care Physician Encounter [facility] [place] Date(s): 07/30/19 - 07/31/[address] [address]- [facility] Encounter Diagnosis Dizziness (Final) - 07/30/19 Discharge Disposition: A-D/C Home Attending Physician: Marcia Celestin MD Admitting Physician: Marcia Celestin MD Referring Physician: Not on Staff, Referring MD Allergies, Adverse Reactions, Alerts Substance Reaction Severity Status penicillin Active tuberculin purified protein derivative Active Adhesive Bandage Active Bee Stings Active Latex Active Peanuts Active Lactose Active Aspirin Enteric Coated Active Egg Allergy Active oxyCODONE Aspirin indicated Active Medications albuterol 2.5mg / 3mL (0.083%) (OP) 3 mL = 2.5 mg, Neb, Every 6 hours, PRN Wheezing/Shortness of Breath, 0 Refills, Maintenance Start Date: 08/26/18 Status: OrderedAmlactin See Instructions, Apply to both feet 2 times a day, 0 Refills, Maintenance, 08/26/18 18:26:50 EDT Start Date: 08/26/18 Status: Orderedatorvastatin 20 mg oral tablet 1 tablet = 20 mg, By Mouth, Daily, 0 Refills, Maintenance, Tablet Start Date: 08/26/18 Status: OrderedBentyl 10 mg oral capsule 1 capsule, By Mouth, 4 times a day, 0 Refills, Maintenance, 08/26/18 18:20:11 EDT, Capsule Start Date: 08/26/18 Status: OrderedclonazePAM 0.5 mg oral tablet 0.5 tablet = 0.25 mg, By Mouth, 3 times a day, 0 Refills, Maintenance, 08/26/18 18:32:45 EDT, Tablet Start Date: 08/26/18 Status: Ordereddulaglutide 1.5 mg/0.5 mL subcutaneous solution 0.5 mL = 1.5 mg, Subcutaneous Injection, Every week, 0 Refills, Maintenance, 08/26/18 18:21:49 EDT, Solution Start Date: 08/26/18 Status: Orderedenoxaparin 120 mg/0.8 mL injectable solution = 120 mg, Subcutaneous Injection, Every 12 hours, # 11.2 mL, 0 Refills, Maintenance, 08/26/18 18:15:04 EDT, Solution Start Date: 08/26/18 Stop Date: 09/25/18 Status: OrderedFlonase 50 mcg/inh nasal spray 2 sprays, Nares, Both, Daily in AM, 0 Refills, Maintenance, 08/26/18 18:31:33 EDT, [place] Start Date: 08/26/18 Status: OrderedFlovent 110 mcg Inhaler HFA See Instructions, 2 puffs twice daily, Refills 0, Maintenance, 08/26/18 18:29:40 EDT, Instructions Replace Required Details Start Date: 08/26/18 Status: OrderedFlovent HFA 110 mcg/inh inhalation aerosol 2 puffs, Inhalation, 2 times a day, # 12 Gm, 0 Refills, Maintenance, 08/26/18 18:10:52 EDT, Aerosol Start Date: 08/26/18 Status: Orderedfurosemide 20 mg oral tablet 20 mg, 1, tablet, By Mouth, 2 times a day, Refills 0, Maintenance, 08/26/18 18:29:00 EDT Start Date: 08/26/18 Status: OrderedHumalog Kwik Pen 100 units/mL subcutaneous injection Subcutaneous Infusion, TID AC SC. < 110 0 units, 111-149 2 units, 150-199 4 units and so on until>399 24 units, call MD, 0 Refills, Maintenance, 08/26/18 18:24:49 EDT Start Date: 08/26/18 Status: Orderedisoniazid 300 mg oral tablet 1 tablet = 300 mg, By Mouth, Daily, [place] BOH to tow picker 03/02/18, # 30 tablet, 8 Refills,Maintenance, 03/01/18 11:45:00 EST Start Date: 03/01/18 Stop Date: 11/26/18 Status: Orderedketotifen 0.025% ophthalmic solution 1 drops, Eyes, Both, Every 12 hours, 0 Refills, Maintenance, 08/26/18 18:23:12 EDT, Ophth Solution Start Date: 08/26/18 Status: OrderedKlonoPIN 0.5 mg oral tablet 0.5 tablet = 0.25 mg, By Mouth, Daily, 0 Refills, Maintenance, 06/01/18 11:16:31 EST, Tablet Start Date: 06/01/18 Status: OrderedLevemir FlexTouch 100 units/mL subcutaneous solution = 60 units, Subcutaneous Infusion, 2 times a day, 0 Refills, Maintenance, 08/26/18 18:17:53 EDT Start Date: 08/26/18 Status: OrderedLidoderm 5% film 1 patch, Topically, Daily, 0 Refills, Maintenance, 08/26/18 18:27:39 EDT Start Date: 08/26/18 Status: Orderedlisinopril 5 mg oral tablet 5 mg, 1, tablet, By Mouth, Daily, Refills 0, Maintenance, 08/26/18 18:12:54 EDT Start Date: 08/26/18 Status: OrderedmetFORMIN 1000 mg oral tablet 1 tablet = 1,000 mg, By Mouth, 2 times a day, 0 Refills, Maintenance, 08/26/18 18:17:28 EDT, Tablet Start Date: 08/26/18 Status: Orderedomeprazole 20 mg oral enteric coated capsule 1 capsule = 20 mg, By Mouth, Daily, 0 Refills, Maintenance, 08/26/18 18:16:53 EDT, EC Capsule Start Date: 08/26/18 Status: OrderedOxygen See Instructions, 2-4 liters nasal continuous (2 liters with rest, 4 liters with activity), 0 Refills, Maintenance, 08/26/18 18:30:23 EDT Start Date: 08/26/18 Status: OrderedProAir HFA 90 mcg/inh inhalation aerosol with adapter 2, puffs, Inhalation, Every 4 hours, PRN, Refills 0, Maintenance, 08/26/18 18:23:52 EDT, Aerosol Start Date: 08/26/18 Status: OrderedProvera 10 mg oral tablet 20 mg, 2, tablet, By Mouth, Daily, Refills 0, Maintenance, 08/26/18 18:20:40 EDT Start Date: 08/26/18 Status: Orderedpyridoxine 50 mg oral tablet 50 mg, 1, tablet, By Mouth, Daily, [place] BOH to tow picker 03/02/18, # 30 tablet, Refills 8, Tot. Refills 8, Maintenance, 03/01/18 11:45:00 EST, Route to Pharmacy Electronically, [id number], [facility] Start Date: 03/01/18 Stop Date: 11/26/18 Status: OrderedSynthroid 0.075 mg oral tablet 1 tablet = 75 mcg, By Mouth, Daily, 0 Refills, Maintenance, 08/26/18 18:22:18 EDT, Tablet Start Date: 08/26/18 Status: OrderedToprol XL 50 mg oral tablet, extended release 50 mg, 1, tablet, By Mouth, Daily, # 90 tablet, Refills 0, Maintenance, 08/26/18 18:14:18 EDT Start Date: 08/26/18 Status: OrderedtraZODone 50 mg oral tablet 50 mg, 1, tablet, By Mouth, Daily at bedtime, Refills 0, Maintenance, 08/26/18 18:28:27 EDT Start Date: 08/26/18 Status: OrderedtraZODone 50 mg oral tablet 50 mg, 1, tablet, By Mouth, 3 times a day, Refills 0, Maintenance, 06/01/18 11:18:17 EST Start Date: 06/01/18 Status: Orderedwarfarin 5 mg oral tablet See Instructions, 2-3 tablets By Mouth Daily as directed, 0 Refills, Maintenance, 08/26/18 18:13:34 EDT Start Date: 08/26/18 Status: OrderedZoloft 100 mg oral tablet 1 tablet = 100 mg, By Mouth, 2 times a day, 0 Refills, Maintenance, 08/26/18 18:32:08 EDT, Tablet Start Date: 08/26/18 Status: OrderedZoloft 100 mg oral tablet 1 tablet = 100 mg, By Mouth, Daily, 0 Refills, Maintenance, 06/01/18 11:18:28 EST Start Date: 06/01/18 Status: OrderedZyrTEC 10 mg oral tablet 1 tablet = 10 mg, By Mouth, Daily, # 30 tablet, 0 Refills, Maintenance, 08/26/18 18:12:19 EDT, Tablet Start Date: 08/26/18 Status: Ordered Problem List Condition Effective Dates Status Health Status Informant Anxiety(Confirmed) Active Asthma - moderate persistent. Active Incubator Tender Jonah Bingham. Rrequires oxygen with exertional activities(Confirmed) Borderline personality Active disorder(Confirmed) Last pap smear 06/01/18 negative with Active negative HPV(Confirmed) Chronic headache disorder - Active migraines(Confirmed) Oxygen dependent(Confirmed) Active Depression(Confirmed) Active Diabetes mellitus with nephropathy - Active on insulin, metformin, and dulaglutide. 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 Sample Maker = Dr. Acosta Patrick(Confirmed) Hemorrhoids(Confirmed) Active Hyperlipidemia(Confirmed) Active Hypertension(Confirmed) Active Hypothyroid(Confirmed) Active Hypoventilation syndrome secondary to Active morbid obesity(Confirmed) Cognitive impairment - lives Active independently in an apartment but is supervised/assisted by [facility](Confirmed) History of Mirena IUD placed fall 2013 Active but it became malpositioned and was subsequently removed 10/11/17(Confirmed) IBS (irritable bowel Active syndrome)(Confirmed) Latent tuberculosis - Negative CXR Active 09/06/16. Is supposed to be taking INH and seeing the [facility] clinic(Confirmed)1 Menorrhagia - on provera. Endometrial Active biopsy 01/17/18 at [facility](Confirmed) Obesity(Confirmed) Active ROGERIO (obstructive sleep apnea), severe Active with nocturnal hyopoxemia. Was on CPAP but she thinks someone told her she didn't need it anymore after her tooth extraction surgery(Confirmed) Catheter Finisher And Inspector is Sydney Albright, Active DPM(Confirmed) Poor historian(Confirmed) Active PTSD (post-traumatic stress Active disorder)(Confirmed) Proteinuria(Confirmed) Active History of pulmonary embolus status Active post embolectomy on lifelong anticoagulation with coumadin(Confirmed) COPD with emphysema(Confirmed) Active Pulmonary hypertension(Confirmed) Active 1Positive Quantiferon 04/30/15. Pt did not keep 1 sched appt and cx 3 additional appts. Vital Signs Most recent to oldest [Reference Range]: 1 2 Oxygen Saturation [94-100 %] 99 % 97 % (07/30/19 10:10 PM) (07/30/19 8:39 PM) Pulse Rate [55-90 bpm] 92 bpm 88 bpm *H* (07/30/19 8:39 PM) (07/30/19 10:10 PM) Blood Pressure [90-138/55-84 mm Hg] 107/67 mm Hg 111/ 61 mm Hg (07/30/19 10:10 PM) (07/30/19 8:39 PM) Respiratory Rate [16-30 br/min] 19 br/min 24 br/mi n (07/30/19 10:10 PM) (07/30/19 8:39 PM) Temperature [96.8-100.4 DegF] 98.3 DegF (07/30/19 8:39 PM) Liters per Minute 2.5 L/min 2.5 L/min (07/30/19 10:10 PM) (07/30/19 8:39 PM) Mode of Delivery (Oxygen) Nasal cannula Nasal cannula (07/30/19 10:10 PM) (07/30/19 8:39 PM) Temperature Route Oral (07/30/19 8:39 PM) Social History Social History Type Response Smoking Status Never (less than 100 in life time) entered on: 06/01/18 Sex
--- OUTSIDE RECORDS SUMMARY | 2022-03-01 14:16 | XMS_ITS | Continuity of Care Document ---
:1975 Author Organization [facility] Address [address] [place] [id number]- Care Team Providers Name Role Phone Maria Guadalupe Severino MD Primary Care Physician En[place] [facility] [place]): 10/17/21 - 10/18/[address] [id number]- Encounter Diagnosis Anxiety (Final) - 10/17/21 Discharge Disposition: A-D/C Home Referring Physician: Not on Staff, Referring MD Allergies, Adverse Reactions, Alerts Substance Reaction Severity Status penicillin Active tuberculin purified protein derivative Active Adhesive Bandage Active Bee Stings Active Latex Active Peanuts Active Lactose Active Aspirin Enteric Coated Active Lovenox HP vomiting Active Egg Allergy Active oxyCODONE Aspirin indicated Active Immunizations Given and Recorded Vaccine Date Status Refusal Reason SARS-CoV-2 (COVID-19) mRNA BNT-162b2 vac 06/27/20 Given SARS-CoV-2 (COVID-19) mRNA BNT-162b2 vac 06/06/20 Given Medications albuterol 2.5mg / 3mL (0.083%) (OP) 3 mL = 2.5 mg, Neb, Every 6 hours, PRN Wheezing/Shortness of Breath, 0 Refills, Maintenance Start Date: 08/26/18 Status: Orderedatorvastatin 20 mg [...] 18:32:45 EDT, Tablet Start Date: 08/26/18 Status: OrderedclonazePAM 1 mg oral tablet 1 tablet = 1 mg, By Mouth, 2 times a day, 0 Refills, Maintenance, 10/17/21 23:46:00 EDT, Tablet, Partial fill upon patient request if the prescription is for a schedule II opioid drug. Start Date: 10/17/21 Status: Ordereddulaglutide 1.5 mg/0.5 mL subcutaneous solution 0.5 mL = 1.5 mg, Subcutaneous Injection, Every week, 0 Refills, Maintenance, 08/26/18 18:21:49 EDT, Solution Start Date: 08/26/18 Status: OrderedFarxiga 5 mg oral tablet 1 tablet = 5 mg, By Mouth, Daily, # 30 tablet, 0 Refills, Maintenance, 10/17/21 23:46:00 EDT, Tablet, Partial fill upon patient request if the prescription is for a schedule II opioid drug. Start Date: 10/17/21 Status: OrderedFlonase 50 mcg/inh nasal spray 2 sprays, Nares, Both, Daily in AM, 0 Refills, Maintenance, 08/26/18 18:31:33 EDT, [place] Start Date: 08/26/18 Status: OrderedFlovent 110 mcg Inhaler HFA See Instructions, 2 puffs twice daily, Refills 0, Maintenance, 08/26/18 18:29:40 EDT, Instructions Replace Required Details Start Date: 08/26/18 Status: OrderedFlovent HFA 110 mcg/inh inhalation aerosol 2 puffs, Inhalation, 2 times a day, # 12 Gm, 0 Refills, Maintenance, 10/17/21 23:46:00 EDT, Aerosol,Partial fill upon patient request if the prescription is for a schedule II opioid drug. Start Date: 10/17/21 Status: Orderedfurosemide 20 mg oral tablet 20 mg, 1, tablet, By Mouth, 2 times a day, Refills 0, Maintenance, 08/26/18 18:29:00 EDT Start Date: 08/26/18 Status: Orderedfurosemide 20 mg oral tablet 20 mg, 1, tablet, By Mouth, Daily, # 30 tablet, Refills 0, Maintenance, 10/17/21 23:47:00 EDT, Partial fill upon patient request if the prescription is for a schedule II opioid drug. Start Date: 10/17/21 Status: OrderedHumalog Yao Pen 100 units/mL subcutaneous injection Subcutaneous Infusion, TID AC SC. < 110 0 units, 111-149 2 units, 150-199 4 units and so on until>399 24 units, call MD, 0 Refills, Maintenance, 08/26/18 18:24:49 EDT Start Date: 08/26/18 Status: OrderedINR INR, See Instructions, # 1 each, Refills 0, Tot. Refills 0, Maintenance, to be obtained 02/19 - lease forward to Renee Saavedra MD., 02/18/20 12:25:00 EST, Supply Start Date: 02/18/20 Status: OrderedINR Lab INR Lab, See Instructions, # 1 each, Refills 0, Tot. 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, 02/18/20 13:27:00 EST, Supply Start Date: 02/18/20 Status: Orderedketotifen 0.025% ophthalmic solution 1 drops, Eyes, Both, Every 12 hours, 0 Refills, Maintenance, 08/26/18 18:23:12 EDT, Ophth Solution Start Date: 08/26/18 Status: OrderedKlonoPIN 0.5 mg oral tablet 0.5 tablet = 0.25 mg, By Mouth, Daily, 0 Refills, Maintenance, 06/01/18 11:16:31 EST, Tablet Start Date: 06/01/18 Status: Orderedlamotrigine 25 mg oral tablet 25 mg, 1, tablet, By Mouth, Daily, # 180 tablet, Refills 0, Maintenance, 10/17/21 23:46:00 EDT, Partial fill upon patient request if the prescription is for a schedule II opioid drug. Start Date: 10/17/21 Status: OrderedLevemir FlexTouch 100 units/mL subcutaneous solution [...] 08/26/18 18:12:54 EDT Start Date: 08/26/18 Status: Orderedlisinopril 5 mg oral tablet 5 mg, 1, tablet, By Mouth, Daily, # 30 tablet, Refills 0, Maintenance, 10/17/21 23:46:00 EDT, Partial fill upon patient request if the prescription is for a schedule II opioid drug. Start Date: 10/17/21 Status: OrderedmetFORMIN 1000 mg oral tablet 1 tablet = 1,000 mg, By Mouth, 2 times a day, 0 Refills, Maintenance, 08/26/18 18:17:28 EDT, Tablet Start Date: 08/26/18 Status: OrderedMetoprolol Succinate ER 50 mg oral tablet, extended release 1 tablet = 50 mg, By Mouth, Daily, # 30 tablet, 0 Refills, Maintenance, 10/17/21 23:46:00 EDT, ER Tablet, Partial fill upon patient request if the prescription is for a schedule II opioid drug. 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 Refills 8, Maintenance, 03/01/18 11:45:00 EST, Route to Pharmacy Electronically, [id number], [facility]. Start Date: 03/01/18 Stop Date: 11/26/18 Status: Orderedsertraline 100 mg oral tablet 1 tablet = 100 mg, By Mouth, Daily, # 30 tablet, 0 Refills, Maintenance, 10/17/21 23:46:00 EDT, Tablet, Partial fill upon patient request if the prescription is for a schedule II opioid drug. Start Date: 10/17/21 Status: OrderedSynthroid 0.075 mg oral tablet 1 [...] tablet, By Mouth, 3 times a day, # 270 tablet, Refills 0, Maintenance, 10/17/21 23:46:00 EDT, Partial fill upon patient request if the prescription is for a schedule II opioid drug. Start Date: 10/17/21 Status: Orderedwarfarin 10 mg oral tablet 1 tablet = 10 mg, By Mouth, Daily, # 30 tablet, 0 Refills, Maintenance, 10/17/21 23:46:00 EDT, Tablet, Partial fill upon patient request if the prescription is for a schedule II opioid drug. Start Date: 10/17/21 Status: Orderedwarfarin 5 mg oral tablet See [...] Anxiety(Confirmed) Active Asthma - moderate persistent. 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 Rrequires oxygen with exertional activities(Confirmed) [...] Active (sister)(Confirmed) GERD (gastroesophageal reflux Active disease). 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 Acosta Patrick(Confirmed) Hemorrhoids(Confirmed) Active Hyperlipidemia(Confirmed) [...] to be taking INH and seeing the [facility](Confirmed)1 Menorrhagia - on provera. Endometrial Active biopsy 01/17/18 at [facility](Confirmed) Obesity(Confirmed) Active ROGERIO (obstructive sleep apnea), severe Active with nocturnal hyopoxemia. 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 Sydney Albright, Active DPM(Confirmed) Poor historian(Confirmed) [...] Range]: 1 2 Oxygen Saturation [94-100 %] 97 % 93 % (10/18/21 12:39 AM) *L* (10/17/21 7:18 PM) Pulse Rate [55-90 bpm] 78 bpm 83 bpm (10/18/21 12:39 AM) (10/17/21 7:18 PM) Blood Pressure [90-138/55-84 mm Hg] 100/68 mm Hg 105/ 61 mm Hg (10/18/21 12:39 AM) (10/17/21 7:18 PM) Respiratory Rate [16-30 br/min] 20 br/min 20 br/mi n (10/18/21 12:39 AM) (10/17/21 7:18 PM) Temperature [96.8-100.4 DegF] 97.9 DegF 98.3 DegF (10/18/21 12:39 AM) (10/17/21 7:18 PM) Mode of Delivery (Oxygen) Room air Room air (10/18/21 12:39 AM) (10/17/21 7:18 PM) Blood pressure sites Arm, right Arm, right (10/18/21 12:39 AM) (10/17/21 7:18 PM) Temperature Route Oral Oral (10/18/21 12:39 AM) (10/17/21 7:18 PM) Social History Social History Type Response Smoking Status Never (less than 100 in life time) entered on: 06/01/18 Sex
--- OUTSIDE RECORDS SUMMARY | 2022-03-01 14:16 | XMS_ITS | Continuity of Care Document ---
:1975 Author Organization [facility] Address [address] [place] [id number]- Care Team Providers Name Role Phone Renee Saavedra MD Primary Care Physician [place] [facility] [place](s): 02/02/22 - 02/03/[address] [id number] Discharge Disposition: A-D/C Home Attending Physician: Loren Ansari MD Admitting Physician: Evette Kilgore MD Referring Physician: Not on Staff, Referring MD Allergies, Adverse Reactions, Alerts Substance Reaction Severity Status penicillin Active tuberculin purified protein derivative Active Egg Allergy Active oxyCODONE Aspirin indicated Active Lovenox HP vomiting Active Adhesive Bandage Active Bee Stings Active Latex Active Peanuts Active Lactose Active Aspirin Enteric Coated Active Immunizations Given and Recorded Vaccine Date [...] Refills, Maintenance, Tablet Start Date: 08/26/18 Status: Orderedatorvastatin 40 mg oral tablet 30 each, TAKE 1 TABLET BY MOUTH EVERY DAY, 0 Refills, 02/02/22 20:05:00 EST, Partial fill upon patient request if the prescription is for a schedule II opioid drug. Start Date: 02/02/22 Status: OrderedBentyl 10 mg oral capsule 1 capsule, By Mouth, 4 times a day, 0 Refills, Maintenance, 08/26/18 18:20:11 EDT, Capsule Start Date: 08/26/18 Status: Ordereddulaglutide 1.5 mg/0.5 [...] II opioid drug. Start Date: 10/17/21 Status: Orderedferrous sulfate 325 mg oral enteric coated tablet 1 Unknown, Oral, 4 Refill(s), Take 1 Tablet by mouth 2 times daily for 30 days., Refills 0, 02/03/2220:06:00 EST, Partial fill upon patient request if the prescription is for a schedule II opioid drug. Start Date: 02/02/22 Status: OrderedFlonase 50 mcg/inh nasal spray 2 sprays, Nares, Both, Daily in AM, 0 Refills, Maintenance, 08/26/18 18:31:33 EDT, [place] Start Date: 08/26/18 Status: OrderedFlovent HFA 110 [...] II opioid drug. Start Date: 10/17/21 Status: OrderedMadai Samayoa Pen 100 units/mL subcutaneous injection Subcutaneous Infusion, [...] 08/26/18 18:17:53 EDT Start Date: 08/26/18 Status: Orderedlevothyroxine 75 mcg (0.075 mg) oral tablet 90 each, TAKE 1 TABLET BY MOUTH EVERY DAY BEFORE BREAKFAST, 0 Refills, 02/02/22 20:07:00 EST, Partial fill upon patient request if the prescription is for a schedule II opioid drug. Start Date: 02/02/22 Status: OrderedLidoderm 5% film 1 patch, Topically, Daily, 0 Refills, Maintenance, 08/26/18 18:27:39 EDT Start Date: 08/26/18 Status: Orderedlisinopril 5 mg oral tablet 5 mg, 1, tablet, By Mouth, Daily, # 30 tablet, Refills 0, Maintenance, 10/17/21 23:46:00 EDT, Partial fill upon patient request if the prescription is for a schedule II opioid drug. Start Date: 10/17/21 Status: Orderedloratadine 10 mg oral tablet 30 each, TAKE 1 TABLET BY MOUTH DAILY NEEDED FOR ALLERGIES., Refills 0, 02/02/22 20:07:00 EST, Partial fill upon patient request if the prescription is for a schedule II opioid drug. Start Date: 02/02/22 Status: OrderedmetFORMIN 1000 mg oral tablet 1 tablet = 1,000 mg, By Mouth, 2 times a day, 0 Refills, Maintenance, 08/26/18 18:17:28 EDT, Tablet Start Date: 08/26/18 Status: OrderedmetFORMIN 1000 mg oral tablet 180 each, TAKE 1 TABLET BY MOUTH TWICE A DAY, 0 Refills, 02/02/22 20:06:00 EST, Partial fill upon patient request if the prescription is for a schedule II opioid drug. 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 Refills 8, Maintenance, 03/01/18 11:45:00 EST, Route to Pharmacy Electronically, [id number], [facility] Start Date: 03/01/18 Stop Date: 11/26/18 Status: OrderedrisperiDONE 0.5 mg oral tablet, disintegrating 0.5 Unknown, Oral, 1 Refill(s), Take 1 Tablet by mouth 2 times daily., 0 Refills, 02/02/22 20:07:00 EST, Partial fill upon patient request if the prescription is for a schedule II opioid drug. Start Date: 02/02/22 Status: OrderedToprol XL 50 mg oral tablet, [...] II opioid drug. Start Date: 10/17/21 Status: OrderedVitamin D3 50,000 intl units oral capsule 4 each, TAKE 1 CAPSULE BY MOUTH ONE TIME PER WEEK, 0 Refills, 02/02/22 20:07:00 EST, Partial fill upon patient request if the prescription is for a schedule II opioid drug. Start Date: 02/02/22 Status: Orderedwarfarin 10 mg oral tablet 1 [...] Date: 08/26/18 Status: Ordered Problem List Condition Confirmation Course Effective Status Health Informa nt Dates Status Anxiety Confirmed Active Asthma - moderate Confirmed Active persistent. 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 Diabetes uncontrolled, last HgbA1c December 2017 = 10.3% Thyroid disease NOS - Confirmed Active patient not sure if she is too high or too low Pseudoseizures, Confirmed Active triggered by stress or anxiety Dyslipidemia Confirmed Active Dysmenorrhea Confirmed Active Former smoker, start Confirmed Active 04/14/95, quit 01/12/03 Family history of Confirmed Active breast cancer (sister) GERD (gastroesophageal Confirmed Active reflux disease). Public Stenographer = Dr. Acosta Patrick Hemorrhoids Confirmed Active Hyperlipidemia Confirmed Active Hypertension Confirmed Active Hypothyroid Confirmed Active Hypoventilation Confirmed Active syndrome secondary to morbid obesity Cognitive impairment - Confirmed Active lives independently in an apartment but is supervised/assisted by [facility] History of Mirena IUD Confirmed Active placed fall 2013 but it became malpositioned and was subsequently removed 10/11/17 IBS (irritable bowel Confirmed Active syndrome) Latent tuberculosis - Confirmed Active Negative CXR 09/06/16. Is supposed to be taking INH and seeing the [facility] TB clinic1 Menorrhagia - on Confirmed Active provera. Endometrial biopsy 01/17/18 at [facility] Confirmed Active ROGERIO (obstructive sleep Confirmed Active apnea), severe with nocturnal hyopoxemia. 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 Pt did not keep 1 sched appt and cx 3 additional appts. Results Radiology Reports Exam Date Time Procedure Performing Provider Status 02/02/22 3:59 PM Chest 2 Views Frontal and Lat Geovany Robison; Au th (Verified) Notes:(Chest 2 Views Frontal and Lat) Reason For Exam: Chest Pain;Other:RESULT: Chest 2 Views Frontal and Lat Chest 2 Views Frontal and Lat Reason: Other:; Chest Pain; Clinical Question(s): CHF COMPARISON: Prior chest radiograph dated February 15, 2020. FINDINGS: LINES AND TUBES: Sternotomy wires with unchanged fracturing of the left aspect of the superior most wire. LUNGS AND PLEURA: Low lung volumes with bronchovascular crowding and mild vascular congestion but no ezekiel edema. Obscuration of left hemidiaphragm. HEART, MEDIASTINUM AND JOCELYN: Moderate to severe appearing cardiomegaly is exaggerated by AP and lordotic technique. BONES AND SOFT TISSUES: No acute abnormality. Mild spinal degenerative changes. IMPRESSION: 1. Low lung volumes with bronchovascular crowding and mild vascular congestion but no ezekiel edema. 2. Obscuration of the left hemidiaphragm, which may be due to atelectasis from low lung volumes or consolidation in the retrocardiac region. WSN: [id number] Ordering Physician: Eddie Mendoza Dictated By: Ran Echevarria MD Dictated Date/Time: 02/02/22 4:04 pm Reviewed By: Ran Echevarria MD Signed By: Ran Echevarria MD Signed Date/Time: 02/02/22 4:04 pm Transcribed By: DOTTIE Transcribed Date/Time: 02/02/22 4:03 pm Vital Signs Most recent to oldest 1 2 3 [Reference Range]: Weight 144.8 kg (02/02/22 8:01 PM) Oxygen Saturation [94-100 %] 95 % 98 % 97 % (02/03/22 11:05 AM) (02/03/22 7:25 AM) (02/03/22 4: 24 AM) Pulse Rate [55-90 bpm] 95 bpm 70 bpm 70 bpm *H* (02/03/22 8:22 AM) (02/03/22 7:25 AM) (02/03/22 11:05 AM) Blood Pressure [90-138/55-84 105/59 mm Hg 91/65 mm Hg 91/ 65 mm Hg mm Hg] (02/03/22 11:05 AM) (02/03/22 8:22 AM) (02/03/22 7: 25 AM) Respiratory Rate [16-30 18 br/min 16 br/min 20 br/mi n br/min] (02/03/22 11:05 AM) (02/03/22 10:22 AM) (02/03/22 7 :25 AM) Temperature [96.8-100.4 DegF] 98.1 DegF 98.3 DegF 98 .1 DegF (02/03/22 11:05 AM) (02/03/22 7:25 AM) (02/03/22 4: 24 AM) Liters per Minute 3 L/min 4 L/min 4 L/min (02/03/22 7:25 AM) (02/03/22 4:24 AM) (02/02/22 8:0 1 PM) Mode of Delivery (Oxygen) Nasal cannula Nasal cannula Nasal cannula (02/03/22 11:05 AM) (02/03/22 7:25 AM) (02/03/22 4: 24 AM) Blood pressure sites Arm, right Arm, right Arm, right (02/03/22 11:05 AM) (02/03/22 7:25 AM) (02/03/22 4: 24 AM) Temperature Route Oral Oral Oral (02/03/22 11:05 AM) (02/03/22 7:25 AM) (02/03/22 4: 24 AM) Weight Obtained Via Bed scale (02/02/22 8:01 PM) Social History Social History Type Response Smoking Status Never (less than 100 in life time) entered on: 02/02/22 Sex History and physical note Rosie HORN, Kashif Perez: PERFORM Event Display: History and Physical Hospital Authored Date: Patient: ??JANELLE CHEATHAM ? Age:??46 Years?Sex:??Female?:??1975?? Chief Complaint/Reason for Consultation chest pain History of Present Illness 02/02/2022. ?? 46-year-old female with past medical history including morbid obesity,??HTN, HLD, DM, PE s/p thrombectomy and on lifelong anticoagulation with Coumadin, ? pulmonary hypertension, asthma/COPD, ROGERIO/obesity hypoventilation syndrome noncompliant with CPAP, on 3 L oxygen at home, history of latent TB unclear whether completed treatment, GERD, hypothyroid, anxiety, depression, PTSD, borderline personalitydisorder.?? Patient came to ER with chest pain. ?? The patient said that??she has??chest pain and shortness of breath??for about 2 to 3 days. ??The pain is??the left side of the chest,??radiates??to the left mid back??and??over the ribs,??sometimes sharp and sometimes??just painful,??severe 10/10,??worse with deep breathing and coughing,??not exertional.?? No abdominal pain. ??Feels some nausea but no vomiting. ??No diarrhea.?? Denies fever, cough, urinary symptoms.?? Due to persistent chest pain and shortness of breath she came to ER for further evaluation. ?? As per ER document,??EMS??brought her in as a STEMI notification.?? However??EKG done in ED did notshow any STEMI. In ER patient was afebrile, heart rate controlled, blood pressure stable, was on 4 Loxygen.?? Labs mostly unremarkable.?? INR was 1.5 which is subtherapeutic.?? D-dimer less than 0.19. Bicarb 30.?? Creatinine 1.1 with baseline 0.7-0.9.?? Troponin 0.01x2.?? COVID- negative.?? EKG shows a sinus rhythm with heart rate of 77, QTc 463, nonspecific ST abnormality. ?? CXR: IMPRESSION: 1.?? Low lung volumes with bronchovascular crowding and mild vascular congestion but no ezekiel edema. 2.?? Obscuration of the left hemidiaphragm, which may be due to atelectasis from low lung volumes or consolidation in the retrocardiac region. ?? Patient was placed for further observation. ? Review of Systems All systems reviewed and negative except as in HPI. Objective Measurements?? Weight: 144.8 kg (02/02/22) ?? Vital Signs?? Temperature: 98.1 DegF (02/03/22 04:24:00) Temperature Route: Oral (02/03/22 04:24:00) Pulse Rate: 69 bpm (02/03/22 04:24:00) Respiratory Rate: 18 br/min (02/03/22 04:38:00) Systolic Blood Pressure: 109 mm Hg (02/03/22 04:24:00) Diastolic Blood Pressure: 69 mm Hg (02/03/22 04:24:00) Blood pressure sites: Arm, right (02/03/22 04:24:00) Mean Arterial Pressure: 82 mm Hg (02/03/22 04:24:00) Pulse Pressure: 40 mm Hg (02/03/22 04:24:00) Oxygen Saturation: 97 % (02/03/22 04:24:00) Liters per Minute: 4 L/min (02/03/22 04:24:00) Mode of Delivery (Oxygen): Nasal cannula (02/03/22 04:24:00) Early Warning Score: 0 (02/03/22 04:38:44) ? Physical Exam Constitutional: ??Alert,??no acute distress, co-operative, lying on the bed, on oxygen. Morbid obesity. Mental state: Oriented x 3. Head: ??Normocephalic, atraumatic. ?? Eye:?No discharge. ENT: No discharge. Neck: ??Supple,??no JVD. Cardiovascular: ??S1, S2. Regular rhythm. No MRG. tender over the left side of the chest. Respiratory: ??Lungs are clear to auscultation b/l, No RRR. ?? Gastrointestinal: ??Soft, Nontender, Non distended, ??Normal bowel sounds.?? Genitourinary: No costovertebral angle tenderness. Neurological: ??Cranial nerves intact. Motor and sensory intact. Back: ??Nontender. Musculoskeletal: ??Normal ROM.?? No edema Hematology: No lymphadenopathy Skin: ??Warm, dry. Psychiatric: ??Cooperative.?? Assessment/Plan Diagnoses Chest pain ??(R07.9) ?? Assessment:??46-year-old female with past medical history including morbid obesity, HTN, HLD, DM, PE s/p thrombectomy and on lifelong anticoagulation with Coumadin, ? pulmonary hypertension, asthma/COPD, ROGERIO/obesity hypoventilation syndrome noncompliant with CPAP, on 3 L oxygen at home, history of latent TB unclear whether completed treatment, GERD, hypothyroid, anxiety, depression, PTSD, borderlinepersonality disorder. Patient came to ER with chest pain. ?? Chest pain (R07.9):??. On observation for chest pain / ACS rule out. Continue telemetry monitoring. Trend troponin. Serial EKGs. Sublingual nitroglycerine PRN for chest pain. Her??chest pain is atypical for??cardiac ischemia.?? Differential would be pulmonary embolism, and she has previous history of??pulm embolism??requiring??thrombectomy.?? She is on warfarin but??INR sub therapeutic.?? However??patient is not tachycardic, not tachypneic,??and is on??baseline??home oxygen. ??Also D-dimer is low.?Also consider??pneumonia, however patient is afebrile, no leukocytosis.?? Chest x-ray does not show?? obscuration of the left hemidiaphragm ??indicating possible atelectasis versus infiltrate.?? If??pain does not??subside??it would be prudent to do a CT scan??to evaluate??any developing??pneumonia??or??PE. ?? History of pulmonary embolism s/p thrombectomy, on warfarin: Subtherapeutic INR: Patient says that she takes her Coumadin regularly.?? She says that she takes 10 mg in the afternoon.?? However her INR is subtherapeutic 1.5.?? I am slightly concerned as patient has history of significant pulmonary embolism, bilateral PEs requiring open thrombectomy.?? She has limited mobility, at high risk of DVT/embolism.?? Hence I would like to bridge her with heparin.?? Patient has enoxaparin allergy.?? Please continue warfarin and monitor INR, discontinue heparin once INR is therapeutic. ?? Other home medications/chronic conditions: HTN: Continue metoprolol, lisinopril, Lasix. HLD: Continue atorvastatin. DM: POC glucose and SSI.?? Not sure whether she is on detemir or Lantus.?? Patient says that she zachery Lantus but unable to give me the doses.?? Please check with her pharmacy and resume long-acting insulin. Asthma/COPD: Not in exacerbation.?? Nebs as needed.?? Budesonide as fluticasone nonformulary. ROGERIO/obesity hypoventilation syndrome: Noncompliant to CPAP. Chronic hypoxic respiratory failure: Continue supplemental oxygen. GERD: Continue PPI. Hypothyroid: Continue levothyroxine. Anxiety/depression/PTSD: Patient unable to confirm me all her medication.?? Based on recent medication refill pattern I have resumed trazodone, sertraline, risperidone, clonazepam, lamotrigine.?? Please check with pharmacy and update as required. ? VTE Prophylaxis:??on coumadin ?VTE Prophylaxis Assessment:??VTE Prophylaxis Ordered ?? Code Status:??full code ?Order Code Status:??Code Status Ordered ?? Discharge Planning:? Histories Allergies Allergies ?(Active and Proposed Allergies Only) Lovenox HP? (Severity: Unknown severity, Onset: Unknown) ?Reactions: vomiting tuberculin purified protein derivative? (Severity: Unknown severity, Onset: Unknown) Bee Stings? (Severity: Unknown severity, Onset: Unknown) Adhesive Bandage? (Severity: Unknown severity, Onset: Unknown) Lactose? (Severity: Unknown severity, Onset: Unknown) Egg Allergy? (Severity: Unknown severity, Onset: Unknown) Peanuts? (Severity: Unknown severity, Onset: Unknown) Latex? (Severity: Unknown severity, Onset: Unknown) Aspirin Enteric Coated? (Severity: Unknown severity, Onset: Unknown) oxyCODONE? (Severity: Unknown severity, Onset: Unknown) ?Reactions: Aspirin indicated penicillin? (Severity: Unknown severity, Onset: Unknown) ? Past Medical History/Problem List Active Problems??(34) Anxiety Asthma - moderate persistent. 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 ??Diabetes uncontrolled, last HgbA1c December 2017 = 10.3% Dyslipidemia Dysmenorrhea Family history of breast cancer (sister) Former smoker, start 04/14/95, quit 01/12/03 GERD (gastroesophageal reflux disease). Public Stenographer = Dr. Acosta Patrick Hemorrhoids History of Mirena IUD placed fall 2013 but it became malpositioned and was subsequently removed 10/11/17 History of pulmonary embolus status post embolectomy on lifelong anticoagulation with coumadin Hyperlipidemia Hypertension Hypothyroid Hypoventilation syndrome secondary to morbid obesity IBS (irritable bowel syndrome) Last pap smear 06/01/18 negative with negative HPV Latent tuberculosis - Negative CXR 09/06/16. Is supposed to be taking INH and seeing the [facility] Menorrhagia - on provera. Endometrial biopsy 01/17/18 at [facility] ROGERIO (obstructive sleep apnea), severe with nocturnal hyopoxemia. 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 Past Surgical History Tooth extractions x 2: 09/2017 Open heart surgery for bilateral pulmonary thromboendarectomy - [facility]: 01/24/14 ? Head surgery - patient has multiple scars on her head but can't recall how she got them, only that she has had them since age 7-8: 1984 Hernia repair, unknown what type, unknown if mesh was used: 1982 ? Social History Alcohol Details:??Use: Past. Sexual Details:??Self described orientation: Lesbian, aguillon or homosexual. Substance Abuse Details:??Use: Never. Tobacco Details:??Use: Never (less than 100 in lifetime). Details:??Use: Never (less than 100 in lifetime). Electronic Cigarette/Vaping Details:??Electronic Cigarette Use: Never. ? Family History Sister: Cancer of breast ? Medications Home Medications Albuterol (albuterol 2.5mg / 3mL (0.083%) (OP))?3?Milliliter?2.5?Milligram?Neb?Every 6 hours?as needed?Wheezing/Shortness of Breath Albuterol (ProAir HFA 90 mcg/inh inhalation aerosol with adapter)?2?puff(s)?Inhalation?Every 4 hours?as needed?for wheezing Atorvastatin (atorvastatin 20 mg oral tablet)?1?tab(s)?20?Milligram?By Mouth?Daily Atorvastatin (atorvastatin 40 mg oral tablet)?30 each, TAKE 1 TABLET BY MOUTH EVERY DAY Cetirizine (ZyrTEC 10 mg oral tablet)?1?tab(s)?10?Milligram?By Mouth?Daily Cholecalciferol (Vitamin D3 50,000 intl units oral capsule)?4 each, TAKE 1 CAPSULE BY MOUTH ONE TIME PER WEEK Clonazepam (KlonoPIN 0.5 mg oral tablet)?0.5?tab(s)?0.25?Milligram?By Mouth?Daily Clonazepam (clonazePAM 0.5 mg oral tablet)?0.5?tab(s)?0.25?Milligram?By Mouth?3 times a day Clonazepam (clonazePAM 1 mg oral tablet)?1?tab(s)?1?Milligram?By Mouth?2 times a day dapagliflozin (Farxiga 5 mg oral tablet)?1?tab(s)?5?Milligram?By Mouth?Daily Dicyclomine (Bentyl 10 mg oral capsule)?1?capsule?By Mouth?4 times a day dulaglutide (dulaglutide 1.5 mg/0.5 mL subcutaneous solution)?0.5?Milliliter?1.5?Milligram?Subcutaneous Injection?Every week Durable Medical Equipment (INR)?See Instructions?to be obtained 02/19 - lease forward Pierce Saavedra MD. Ferrous Sulfate (ferrous sulfate 325 mg oral enteric coated tablet)?1 Unknown, Oral, 4 Refill(s), Take 1 Tablet by mouth 2 times daily for 30 days. Fluticasone (Flovent 110 mcg Inhaler HFA)?See Instructions?2 puffs twice daily Fluticasone (Flovent HFA 110 mcg/inh inhalation aerosol)?2?puff(s)?Inhalation?2 times aday Fluticasone Nasal (Flonase 50 mcg/inh nasal spray)?2?spray(s)?Nares, Both?Daily in AM Furosemide (furosemide 20 mg oral tablet)?20?Milligram?1?tablet?By Mouth?2 times a day Furosemide (furosemide 20 mg oral tablet)?20?Milligram?1?tablet?By Mouth?Daily Insulin Detemir (Levemir FlexTouch 100 units/mL subcutaneous solution)?60?unit(s)?Subcutaneous Infusion?2 times a day Insulin Lispro (Humalog Kwik Pen 100 units/mL subcutaneous injection)?Subcutaneous Infusion?TID AC SC. < 110 0 units, 111-149 2 units, 150-199 4 units and so on until >399 24 units, call MD Ketotifen Ophthalmic (ketotifen 0.025% ophthalmic solution)?1?Drops?Eyes, Both?Every 12hours Lamotrigine (lamotrigine 25 mg oral tablet)?25?Milligram?1?tablet?By Mouth?Daily Levothyroxine (Synthroid 0.075 mg oral tablet)?1?tab(s)?75?Microgram?By Mouth?Daily Levothyroxine (levothyroxine 75 mcg (0.075 mg) oral tablet)?90 each, TAKE 1 TABLET BY MOUTH EVERY DAY BEFORE BREAKFAST Lidocaine Topical (Lidoderm 5% film)?1?patch(es)?Topically?Daily Lisinopril (lisinopril 5 mg oral tablet)?5?Milligram?1?tablet?By Mouth?Daily Lisinopril (lisinopril 5 mg oral tablet)?5?Milligram?1?tablet?By Mouth?Daily Loratadine (loratadine 10 mg oral tablet)?30 each, TAKE 1 TABLET BY MOUTH DAILY NEEDED FOR ALLERGIES. MedroxyPROGESTERone (Provera 10 mg oral tablet)?20?Milligram?2?tablet?By Mouth?Daily Metformin (metFORMIN 1000 mg oral tablet)?1?tab(s)?1,000?Milligram?By Mouth?2 times a day Metformin (metFORMIN 1000 mg oral tablet)?180 each, TAKE 1 TABLET BY MOUTH TWICE A DAY Metoprolol (Toprol XL 50 mg oral tablet, extended release)?50?Milligram?1?tablet?By Mouth?Daily Metoprolol (Metoprolol Succinate ER 50 mg oral tablet, extended release)?1?tab(s)?50?Milligram?By Mouth?Daily Miscellaneous Rx (INR Lab)?See Instructions?Lab: Check INR on 02/21Diagnosis: PULMONARY Embolism ICD I26.9 Omeprazole (omeprazole 20 mg oral enteric coated capsule)?1?capsule?20?Milligram?By Mouth?Daily Oxygen?See Instructions?2-4 liters nasal continuous (2 liters with rest, 4 liters with activity) Pyridoxine (pyridoxine 50 mg oral tablet)?50?Milligram?1?tablet?By Mouth?Daily?for 30?Days?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 Risperidone (risperiDONE 0.5 mg oral tablet)?60 each, TAKE ONE (1) TABLET BY MOUTH TWICE A DAY, NEEDED FOR ANXIETY OR AGITATION Sertraline (Zoloft 100 mg oral tablet)?1?tab(s)?100?Milligram?By Mouth?Daily Sertraline (sertraline 100 mg oral tablet)?1?tab(s)?100?Milligram?By Mouth?Daily Trazodone (traZODone 50 mg oral tablet)?50?Milligram?1?tablet?By Mouth?Daily at bedtime Trazodone (traZODone 50 mg oral tablet)?50?Milligram?1?tablet?By Mouth?3 times a day Warfarin (warfarin 5 mg oral tablet)?See Instructions?2-3 tablets By Mouth Daily as directed Warfarin (warfarin 10 mg oral tablet)?1?tab(s)?10?Milligram?By Mouth?Daily ? Inpatient Medications Medications (29) Active SCHEDULED: (15) Atorvastatin 40 mg Tablet (atorvastatin 40 mg oral tablet) ??40 mg, By Mouth, Daily Budesonide 0.5 mg/ 2 mL Inhalation Susp (budesonide 0.5 mg/2 mL inhalation suspension) ??0.5 mg 2 mL, BAND Nebulizer, 2 times a day Clonazepam 1 mg Tablet (clonazePAM 1 mg oral tablet) ??1 mg, By Mouth, 2 times a day Fluticasone Propionate 50mcg/inh Nasal [place] (Flonase 50 mcg/inh nasal spray) ??100 mcg 2 sprays, Nares, Both, Daily in AM Furosemide 20 mg Tablet (furosemide 20 mg oral tablet) ??20 mg, By Mouth, Daily Insulin Lispro 100 units/mL Inj (3mL) (Insulin LISPRO Sliding Scale) ??2-10 units, Subcutaneous Injection, 3 times a day before meals LamoTRIGINE 25 mg Tablet (lamotrigine 25 mg oral tablet) ??25 mg, By Mouth, Daily Levothyroxine 75 mcg Tablet (Synthroid 0.075 mg oral tablet) ??75 mcg, By Mouth, Daily Lisinopril 5 mg Tablet (lisinopril 5 mg oral tablet) ??5 mg, By Mouth, Daily Metoprolol 50 mg XL Tablet (metoprolol 50 mg oral tablet, extended release) ??50 mg, By Mouth, Daily Pantoprazole 40 mg EC Tablet (pantoprazole 40 mg oral delayed release tablet) ??40 mg, By Mouth, Daily Pyridoxine 50 mg Tablet (pyridoxine 50 mg oral tablet) ??50 mg, By Mouth, Daily Risperidone 0.25 mg Tablet (risperiDONE 0.25 mg oral tablet) ??0.5 mg, By Mouth, 2 times a day Sertraline 50 mg Tablet (sertraline 50 mg oral tablet) ??100 mg, By Mouth, Daily Trazodone 50 mg Tablet (traZODone 50 mg oral tablet) ??50 mg, By Mouth, Daily at bedtime CONTINUOUS: (1) Heparin 25,000 units / 250 mL D5W premix 25,000 units [12 units/kg/hr] + D5%W Premixed IV 250 mL (Heparin 25,000 units in 250 mL Premix 25,000 units [12 units/kg/hr] + D5%W Premixed IV 250 mL) ??250 mL, IV Infusion, 18 mL/hr PRN: (13) Acetaminophen 325 mg Tablet (Acetaminophen Tablet) ??650 mg, By Mouth, Every 4 hours Dextrose Inj Syringe (Dextrose 50% Inj Syringe (25Gm)) ??12.5 Gm, IV Push Slowly, Every 20 minutes Dextrose Inj Syringe (Dextrose 50% Inj Syringe (25Gm)) ??25 Gm, IV Push Slowly, Every 15 minutes Glucagon 1 mg Inj (Glucagon Inj) ??1 mg, Intramuscular, Once Glucose 40% Gel (15 Gm) (Glucose Gel) ??15 Gm, By Mouth, Every 20 minutes Glucose 40% Gel (15 Gm) (Glucose Gel) ??30 Gm, By Mouth, Every 20 minutes Heparin 5000 units/mL Inj (1 mL) (Heparin Inj) ??9,000 units 1.8 mL, IV Push, Every 6 hours Heparin 5000 units/mL Inj (1 mL) (Heparin Inj) ??4,500 units 0.9 mL, IV Push, Every 6 hours Loratadine 10 mg Tablet (loratadine 10 mg oral tablet) ??10 mg, By Mouth, Daily Melatonin 3 mg Tablet (Melatonin Tablet) ??3 mg, By Mouth, Daily at bedtime NaCl 0.9% Flush 3ml (NaCL 0.9% Flush) ??3 mL, IV Push, Every 8 hours Polyethylene Glycol 17 Gm Powder (MiraLax Powder) ??17 Gm 1 pack/packet, By Mouth, Daily Senna 8.6 mg / Docusate 50 mg tablet (Docusate/Senna Tablet) ??1 tablet, By Mouth, 2 times a day ? Results Recent Labs BLOOD BANK Blood Type A Positive ()?? 02/02/2022 13:00 Antibody Screen Negative ()?? 02/02/2022 13:00 ?? BLOOD COUNT & DIFF WBC 8.9 k/mm3 ()?? 02/03/2022 02:37 RBC 4.76 m/mm3 ()?? 02/03/2022 02:37 Hgb 12.3 Gm/dL ()?? 02/03/2022 02:37 Hct 40.5 % ()?? 02/03/2022 02:37 MCV 85.1 femtoliters ()?? 02/03/2022 02:37 MCH 25.8 pg (Low)?? 02/03/2022 02:37 MCHC 30.4 g/dL (Low)?? 02/03/2022 02:37 Platelet Count 284 k/mm3 ()?? 02/03/2022 02:37 RDW-SD 55.5 femtoliters (High)?? 02/03/2022 02:37 MPV 10.1 femtoliters ()?? 02/03/2022 02:37 Nucleated RBC (Automated) 0.0 #/100 WBC'S ()?? 02/03/2022 02:37 Abs. NRBC 0.0 k/mm3 ()?? 02/03/2022 02:37 Abs. Neut 5.2 k/mm3 ()?? 02/02/2022 13:13 Abs. Lymph 2.3 k/mm3 ()?? 02/02/2022 13:13 Abs. [place] 0.7 k/mm3 ()?? 02/02/2022 13:13 Abs. Eo 0.2 k/mm3 ()?? 02/02/2022 13:13 Abs. Baso 0.1 k/mm3 ()?? 02/02/2022 13:13 Neut % 60.5 % ()?? 02/02/2022 13:13 Lymph % 27.4 % ()?? 02/02/2022 13:13 [place] % 8.7 % ()?? 02/02/2022 13:13 Eos % 2.3 % ()?? 02/02/2022 13:13 Baso % 0.7 % ()?? 02/02/2022 13:13 Imm Gran 0.4 % ()?? 02/02/2022 13:13 Abs. Imm Gran 0.0 k/mm3 ()?? 02/02/2022 13:13 ?? CARDIAC Troponin T Quant <0.01 ng/mL ()?? 02/03/2022 00:39 ?? CHEM GENERAL Sodium 138 mmol/L ()?? 02/02/2022 13:13 Potassium 4.9 mmol/L ()?? 02/02/2022 13:13 Chloride 98 mmol/L ()?? 02/02/2022 13:13 Bicarbonate Level 30 mmol/L (High)?? 02/02/2022 13:13 Anion Gap 10 ()?? 02/02/2022 13:13 Glucose Level 326 mg/dL (High)?? 02/02/2022 13:13 Glucose, POC 125 mg/dL (High)?? 02/02/2022 20:49 BUN 15 mg/dL ()?? 02/02/2022 13:13 Creatinine-Blood 1.1 mg/dL (High)?? 02/02/2022 13:13 Estimated GFR Creatinine 65 ML/MIN/1.73 M2 ()?? 02/02/2022 13:13 Calcium 9.8 mg/dL ()?? 02/02/2022 13:13 ?? COAG INR 1.6 (High)?? 02/03/2022 00:39 Protime (PT) 16.7 seconds (High)?? 02/03/2022 00:39 APTT 29.1 seconds ()?? 02/02/2022 13:13 D-Dimer <0.19 mg/L FEU ()?? 02/02/2022 13:13 ?? ENDOCRINE/TUMOR MARKER BHCG (HCG & Beta) <1 mIU/mL ()?? 02/02/2022 13:13 ?? MISC. CHEMISTRY Hold Red Top SPECIMEN DISCARDED AFTER 1 WEEK ()?? 02/02/2022 18:55 ?? VIROLOGY COVID-19 by RT-PCR NEGATIVE ()?? 02/02/2022 16:41 ? Microbiology ?? COVID-19 (Novel Coronavirus), Rapid PCR?? Completed?? Source: Nasal Body Site: Nose Collected Dt/Tm: 02/02/2022 15:14 Last Updated Dt/Tm: 02/02/2022 18:15 ? EKG study Event Display: ECG 12-Lead Authored Date: Please click on pdf link to open report Event Display: ECG 12-Lead Authored Date: Ventricular Rate: 77 BPM Atrial Rate: 77 BPM P-R Interval: 160 ms QRS Duration: 74 ms Q-T Interval: 410 ms QTC Calculation(Bazett): 463 ms P [place]: 58 degrees R [place]: 103 degrees T [place]: 79 degrees Normal sinus rhythm Possible Left atrial enlargement Rightward axis Nonspecific ST abnormality Abnormal ECG When compared with ECG of 15-FEB-2020 21:21, No significant change was found Confirmed by ERMIAS ARNDT ([id number]) on 02/02/2022 4:20:30 PM [place]: ERMIAS ARNDT Note Event Display: Cardiac Rhythm Strips Authored Date: Cyn Celestin RN: PERFORM Event Display: Discharge/Transfer Note Hospital Authored Date: Nursing Discharge Note Entered On: 02/03/2022 11:54 EST Performed On: 02/03/2022 11:53 EST by Cyn Celestin RN Nursing Discharge Note 2 Discharge Time : 02/03/2022 11:53 EST Discharge Level of Care at Discharge : Homehealth/VNA Discharge VNA/Hospice/Home Care(v001) : [facility] Patient Left Unit Via : Wheelchair Patient Accompanied Off Unit with : Responsible adult DC Instructions Provided & Signed by Pt : Yes Patient Understands D/C Instructions : Yes Patient Instructions Discharge Signed : Yes Did Pt have Specialty Bed or Wound Vac : No Cyn Celestin RN - 02/03/2022 11:53 Belen HORN, Loren H: PERFORM Event Display: Discharge/Transfer Note Hospital Authored Date: Patient: ??CHAPARRITA JANELLE ? Age:??46 Years?Sex:??Female?:??1975?? Patient Information Discharge Location: B Primary Care Physician: Renee Saavedra MD Admit Date/Time: 02/02/22 12:52 Discharge Disposition Discharge Disposition: Home with Home Health Discharge Diagnosis Chest pain (R07.9) ?? _ Discharge Medications Albuterol (albuterol 2.5mg / 3mL (0.083%) (OP))?3?Milliliter?2.5?Milligram?Neb?Every 6 hours?as needed?Wheezing/Shortness of Breath Albuterol (ProAir HFA 90 mcg/inh inhalation aerosol with adapter)?2?puff(s)?Inhalation?Every 4 hours?as needed?for wheezing Atorvastatin (atorvastatin 20 mg oral tablet)?1?tab(s)?20?Milligram?By Mouth?Daily Atorvastatin (atorvastatin 40 mg oral tablet)?30 each, TAKE 1 TABLET BY MOUTH EVERY DAY Cetirizine (ZyrTEC 10 mg oral tablet)?1?tab(s)?10?Milligram?By Mouth?Daily Cholecalciferol (Vitamin D3 50,000 intl units oral capsule)?4 each, TAKE 1 CAPSULE BY MOUTH ONE TIME PER WEEK Clonazepam (KlonoPIN 0.5 mg oral tablet)?0.5?tab(s)?0.25?Milligram?By Mouth?Daily dapagliflozin (Farxiga 5 mg oral tablet)?1?tab(s)?5?Milligram?By Mouth?Daily Dicyclomine (Bentyl 10 mg oral capsule)?1?capsule?By Mouth?4 times a day dulaglutide (dulaglutide 1.5 mg/0.5 mL subcutaneous solution)?0.5?Milliliter?1.5?Milligram?Subcutaneous Injection?Every week Durable Medical Equipment (INR)?See Instructions?to be obtained 02/19 - lease forward to Renee Saavedra MD. Ferrous Sulfate (ferrous sulfate 325 mg oral enteric coated tablet)?1 Unknown, Oral, 4 Refill(s),Take 1 Tablet by mouth 2 times daily for 30 days. Fluticasone (Flovent HFA 110 mcg/inh inhalation aerosol)?2?puff(s)?Inhalation?2 times a day Fluticasone Nasal (Flonase 50 mcg/inh nasal spray)?2?spray(s)?Nares, Both?Daily in AM Furosemide (furosemide 20 mg oral tablet)?20?Milligram?1?tablet?By Mouth?Daily Insulin Detemir (Levemir FlexTouch 100 units/mL subcutaneous solution)?60?unit(s)?Subcutaneous Infusion?2 times a day Insulin Lispro (Humalog Kwik Pen 100 units/mL subcutaneous injection)?Subcutaneous Infusion?TID AC SC. < 110 0 units, 111-149 2 units, 150-199 4 units and so on until >399 24 units, call Ketotifen Ophthalmic (ketotifen 0.025% ophthalmic solution)?1?Drops?Eyes, Both?Every 12 hours Lamotrigine (lamotrigine 25 mg oral tablet)?25?Milligram?1?tablet?By Mouth?Daily Levothyroxine (levothyroxine 75 mcg (0.075 mg) oral tablet)?90 each, TAKE 1 TABLET BY MOUTH EVERYDAY BEFORE BREAKFAST Lidocaine Topical (Lidoderm 5% film)?1?patch(es)?Topically?Daily Lisinopril (lisinopril 5 mg oral tablet)?5?Milligram?1?tablet?By Mouth?Daily Loratadine (loratadine 10 mg oral tablet)?30 each, TAKE 1 TABLET BY MOUTH DAILY NEEDED FOR ALLERGIES. MedroxyPROGESTERone (Provera 10 mg oral tablet)?20?Milligram?2?tablet?By Mouth?Daily Metformin (metFORMIN 1000 mg oral tablet)?1?tab(s)?1,000?Milligram?By Mouth?2 times a day Metformin (metFORMIN 1000 mg oral tablet)?180 each, TAKE 1 TABLET BY MOUTH TWICE A DAY Metoprolol (Toprol XL 50 mg oral tablet, extended release)?50?Milligram?1?tablet?By Mouth?Daily Miscellaneous Rx (INR Lab)?See Instructions?Lab: Check INR on 02/21Diagnosis: PULMONARY Embolism ICD I26.9 Omeprazole (omeprazole 20 mg oral enteric coated capsule)?1?capsule?20?Milligram?By Mouth?Daily Oxygen?See Instructions?2-4 liters nasal continuous (2 liters with rest, 4 liters with activity) Pyridoxine (pyridoxine 50 mg oral tablet)?50?Milligram?1?tablet?By Mouth?Daily?for 30?Days?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 Sertraline (Zoloft 100 mg oral tablet)?1?tab(s)?100?Milligram?By Mouth?Daily Trazodone (traZODone 50 mg oral tablet)?50?Milligram?1?tablet?By Mouth?3 times a day Warfarin (warfarin 5 mg oral tablet)?See Instructions?2-3 tablets By Mouth Daily as directed Warfarin (warfarin 10 mg oral tablet)?1?tab(s)?10?Milligram?By Mouth?Daily ? Doses Changed ? No medication changes were made Hospital Course ?46-year-old female with past medical history including morbid obesity, HTN, HLD, DM, PE s/p thrombectomy and on lifelong anticoagulation with Coumadin, ? pulmonary hypertension, asthma/COPD, ROGERIO/obesity hypoventilation syndrome noncompliant with CPAP, on 3 L oxygen at home, history of latent TB unclear whether completed treatment, GERD, hypothyroid, anxiety, depression, PTSD, borderline personalitydisorder. Patient came to ER with chest pain and shortness of breath. ??Symptoms resolved on??first day of admission and patient wanted to be discharged home.?? ACS work-up remain negative??and patientwas at baseline oxygen requirements and asymptomatic. ??Discharged home will resume services??02/03. ??No new medications added. ??Of note medication reconciliation not done on admission??and patient not sure of her medications??(in a ramon to leave). 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 Chest pain (R07.9):??. On observation for chest pain / ACS rule out. Resolved spontaneously and??ACS work-up remain negative ?? History of pulmonary embolism s/p thrombectomy, on warfarin: Subtherapeutic INR: Patient says that she takes her Coumadin regularly.?? She says that she takes 10 mg in the afternoon.?? However her INR is subtherapeutic 1.5.?? Checks INR weekly and sometimes it is subtherapeutic and dose gets adjusted,??advised patient to have INR check??soon ?? Other home medications/chronic conditions: HTN: Continue metoprolol, lisinopril, Lasix. HLD: Continue atorvastatin. DM:?? Patient will resume her previous??insulin regiment, she is not sure of the details,??her home nurse??specialist knows Asthma/COPD: Not in exacerbation.?Continue previous inhalers ROGERIO/obesity hypoventilation syndrome: Noncompliant to CPAP. Chronic hypoxic respiratory failure: Continue supplemental oxygen. GERD: Continue PPI. Hypothyroid: Continue levothyroxine. Anxiety/depression/PTSD: Continue previous medications Objective Measurements?? Weight: 144.8 kg (02/02/22) ?? Vital Signs?? Temperature: 98.3 DegF (02/03/22 07:25:00) Temperature Route: Oral (02/03/22 07:25:00) Pulse Rate: 70 bpm (02/03/22 08:22:00) Respiratory Rate: 16 br/min (02/03/22 10:22:00) Systolic Blood Pressure: 91 mm Hg (02/03/22 08:22:00) Diastolic Blood Pressure: 65 mm Hg (02/03/22 08:22:00) Blood pressure sites: Arm, right (02/03/22 07:25:00) Mean Arterial Pressure: 74 mm Hg (02/03/22 07:25:00) Pulse Pressure: 26 mm Hg (02/03/22 07:25:00) Oxygen Saturation: 98 % (02/03/22 07:25:00) Liters per Minute: 3 L/min (02/03/22 07:25:00) Mode of Delivery (Oxygen): Nasal cannula (02/03/22 07:25:00) Early Warning Score: 1 (02/03/22 10:22:30) ? . Physical Exam ? Constitutional: ??Alert,??no acute distress, co-operative, lying on the bed, on oxygen. Morbid obesity. Mental state: Oriented x 3. Head: ??Normocephalic, atraumatic.? Neck: ??Supple,??no JVD. Cardiovascular: ??S1, S2. Regular rhythm. No MRG. tender over the left side of the chest. Respiratory: ??Lungs are clear to auscultation b/l, No RRR. ?? Gastrointestinal: ??Soft, Nontender, Non distended, ??Normal bowel sounds.?? Genitourinary: No costovertebral angle tenderness. Neurological: ??Cranial nerves intact. Motor and sensory intact. Back: ??Nontender. Musculoskeletal: ??Normal ROM.?? No edema Hematology: No lymphadenopathy Skin: ??Warm, dry. Psychiatric: ??Cooperative.?? Pending Results Add On Lab Order ordered on 02/02/2022 BUN ordered on 02/03/2022 CBC ordered on 02/03/2022 Creatinine ordered on 02/03/2022 Electrolytes ordered on 02/03/2022 Glucose Level ordered on 02/03/2022 INR ordered on 02/03/2022 Follow-Up Appointments Added Follow Up ?Time Frame ?Comments Quentin HORN, Renee Edwards Patient Instructions -You were admitted to the hospital for chest pain and shortness of breath, your??cardiac work-up remain negative -Your symptoms resolved, there were no signs of pneumonia or worsening COPD -You were??advised to continue using your??oxygen and to use??sleep apnea??CPAP mask ?? -You were not sure about your medications, however no medication changes have been made,??your home nursing should resume medications as before Post Discharge Care Diet: Diabetic Diet Activity: As tolerated Code Status: ?? Full Resuscitation Condition: Stable Prognosis: Fair Discharge ?02/03/22 10:39:00 EST Discharge Prescriptions ?None, ??02/03/22 10:39:00 EST Home Health Face to Face *Denotes mandatory ryan ?? *I certify that this patient is under my care and that I or an allowed [facility] to face encounter with the patient on this date:??02/03/2022 10:40 ?? *The encounter with the patient was in whole, or in part, for the following medical condition, whichis the primary diagnosis(es) for home health care:??Chest pain (R07.9) ? *Select the indications for the discipline/s that are being arranged for this patient. Nursing (select all that apply): [_] None [X] Medication management (reconciliation, teaching)?? [_] Chronic disease management?? [_] Wound care and treatment?? [_] Home safety evaluation [_] Administer SQ/IM/IV medications?? [_] Cath care?? [_] Drain care?? [_] Trach or GT care?? Other _ ?? Resume previous services Occupation Therapy (select all that apply): [_] None [_] ADL Management [_] Fall prevention training [_] Energy conservation [_] Cognitive training Other _ Physical Therapy (select all that apply): [_] None [_] Functional mobility training [_] Home exercise program to strengthen [_] Increase ROM?? [_] Falls prevention training [_] Home maintenance program for chronic disease Other _ Speech Therapy (select all that apply): [_] None [_] Swallow evaluation and training [_] Speech and language training [_] Cognitive training to process, organize, and/or recall information Other _ ? *Homebound due to (select all that apply): [_] Inability to leave home without assistance/supervision [_] Inability to ambulate without assistance [_] Pain [X] Decreased strength and endurance [_] Unsteady gait [_] Severe SOB and fatigue [_] Impaired transfers [_] Inability to negotiate stairs [_] Limited weight bearing [_] Mental status change? *Physician Signature: _Loren Ansari MD ?? *By signing this, I certify that I have personally evaluated the patient and agree with the findingsand recommendations as documented above. ? F Results Discharge Labs BLOOD BANK Blood Type A Positive ()?? 02/02/2022 13:00 Antibody Screen Negative ()?? 02/02/2022 13:00 ?? BLOOD COUNT & DIFF WBC 8.9 k/mm3 ()?? 02/03/2022 02:37 RBC 4.76 m/mm3 ()?? 02/03/2022 02:37 Hgb 12.3 Gm/dL ()?? 02/03/2022 02:37 Hct 40.5 % ()?? 02/03/2022 02:37 MCV 85.1 femtoliters ()?? 02/03/2022 02:37 MCH 25.8 pg (Low)?? 02/03/2022 02:37 MCHC 30.4 g/dL (Low)?? 02/03/2022 02:37 Platelet Count 284 k/mm3 ()?? 02/03/2022 02:37 RDW-SD 55.5 femtoliters (High)?? 02/03/2022 02:37 MPV 10.1 femtoliters ()?? 02/03/2022 02:37 Nucleated RBC (Automated) 0.0 #/100 WBC'S ()?? 02/03/2022 02:37 Abs. NRBC 0.0 k/mm3 ()?? 02/03/2022 02:37 Abs. Neut 5.2 k/mm3 ()?? 02/02/2022 13:13 Abs. Lymph 2.3 k/mm3 ()?? 02/02/2022 13:13 Abs. [place] 0.7 k/mm3 ()?? 02/02/2022 13:13 Abs. Eo 0.2 k/mm3 ()?? 02/02/2022 13:13 Abs. Baso 0.1 k/mm3 ()?? 02/02/2022 13:13 Neut % 60.5 % ()?? 02/02/2022 13:13 Lymph % 27.4 % ()?? 02/02/2022 13:13 [place] % 8.7 % ()?? 02/02/2022 13:13 Eos % 2.3 % ()?? 02/02/2022 13:13 Baso % 0.7 % ()?? 02/02/2022 13:13 Imm Gran 0.4 % ()?? 02/02/2022 13:13 Abs. Imm Gran 0.0 k/mm3 ()?? 02/02/2022 13:13 ?? CARDIAC Troponin T Quant <0.01 ng/mL ()?? 02/03/2022 00:39 ? CHEM GENERAL Sodium 138 mmol/L ()?? 02/02/2022 13:13 Potassium 4.9 mmol/L ()?? 02/02/2022 13:13 Chloride 98 mmol/L ()?? 02/02/2022 13:13 Bicarbonate Level 30 mmol/L (High)?? 02/02/2022 13:13 Anion Gap 10 ()?? 02/02/2022 13:13 Glucose Level 326 mg/dL (High)?? 02/02/2022 13:13 Glucose, POC 67 mg/dL (Low)?? 02/03/2022 08:19 BUN 15 mg/dL ()?? 02/02/2022 13:13 Creatinine-Blood 1.1 mg/dL (High)?? 02/02/2022 13:13 Estimated GFR Creatinine 65 ML/MIN/1.73 M2 ()?? 02/02/2022 13:13 Calcium 9.8 mg/dL ()?? 02/02/2022 13:13 ? COAG INR 1.6 (High)?? 02/03/2022 00:39 Protime (PT) 16.7 seconds (High)?? 02/03/2022 00:39 APTT 29.1 seconds ()?? 02/02/2022 13:13 D-Dimer <0.19 mg/L FEU ()?? 02/02/2022 13:13 ?? ENDOCRINE/TUMOR MARKER BHCG (HCG & Beta) <1 mIU/mL ()?? 02/02/2022 13:13 ? MISC. CHEMISTRY Hold Red Top SPECIMEN DISCARDED AFTER 1 WEEK ()?? 02/02/2022 18:55 ? VIROLOGY COVID-19 by RT-PCR NEGATIVE ()?? 02/02/2022 16:41 ? Microbiology ?? COVID-19 (Novel Coronavirus), Rapid PCR?? Completed?? Source: Nasal Body Site: Nose Collected Dt/Tm: 02/02/2022 15:14 Last Updated Dt/Tm: 02/02/2022 18:15 ? 28_ minutes spent on discharge Alissa Agrawal RN: PERFORM, SIGN, VERIFY Event Display: Case Management Discharge Plan Authored Date: Patient: JANELLE CHEATHAM Age: 46 years Sex: Female : 1975 Associated Diagnoses: None Author: Alissa Agrawal RN Discharge Plan Case Management Discharge Plan : Case Management Discharge Plan Data 02/03/2022 10:03 EST Discharge Level of Care at Discharge Homehealth/VNA Discharge VNA/Hospice/Home Care [facility] (Modified) Name of Agency #1 [facility] (Modified) Service Categories #1 Alissa Blair RN: PERFORM, SIGN, VERIFY Event Display: Case Management Discharge Plan Authored Date: [id number] Patient: JANELLE CHEATHAM Age: 46 years Sex: Female : 1975 Associated Diagnoses: None Author: Alissa Agrawal RN Discharge Plan Case Management Discharge Plan : Case Management Discharge Plan Data 02/03/2022 10:03 EST Discharge Level of Care at Discharge Homehealth/VNA Discharge VNA/Hospice/Home Care [facility] (Modified) Name of Agency #1 [facility] (Modified) Service Categories #1 Alissa Blair RN: SIGN, VERIFY, PERFORM Event Display: Case Management Discharge Plan Authored Date: Patient: JANELLE CHEATHAM Age: 46 years Sex: Female : 1975 Associated Diagnoses: None Author: Alissa Agrawal RN Discharge Plan Case Management Discharge Plan : Case Management Discharge Plan Data 02/03/2022 10:03 EST Discharge Level of Care at Discharge Homehealth/VNA Discharge VNA/Hospice/Home Care [facility] Name of Agency #1 [facility] Service Categories #1 yCn Young RN: PERFORM Event Display: Patient Education/Instruction Authored Date: [id number] Inpatient Adult Discharge Instructions [address] [address] Name: JANELLE CHEATHAM : 1975 Visit: 02/02/2022 12:52:00 Current Date: 02/03/2022 10:52 Account: [id number] Inpatient Adult Discharge Instructions We would like to thank you for allowing us to assist you with your healthcare needs. The following includes patient education materials and information regarding your injury/illness. Our entire staff strives to provide an excellent experience for our patients and their families. PLEASE ENSURE YOU FOLLOW-UP PER THE INSTRUCTIONS BELOW! ?? YOUR OPINION IS IMPORTANT TO US! Please complete the survey you may receive by mail or email. Your feedback will be used to make improvements to the healthcare experiences of our patients and their families. Surveys are administered by [employer] ?? If further treatment with your primary care physician or another doctor is recommended, it is important for you to keep the appointment. Call your primary care physician or return to the Emergency Department immediately if your condition worsens, fails to improve, or new symptoms develop. If you need to find a doctor, you can call [facility] [employer] for a referral at [phone] or toll free at [phone] ([phone]) or log in to [email or web address] ?? You can view and manage your care through the patient portal or by using a health care amrik of your choosing. [employer] is a website that allows you to securely view your medical information including your hospital discharge summary, office visit summaries, medications and follow-up visits. You can also request appointments, renew medications, and request access to your medical information using a health care amrik of your choosing, or just ask a question. You can enroll at [email or web address] or register during your next office visit. You have been discharged from [facility], Patient Care Unit: D3B. If you have any questions regarding these instructions after you leave, please call us and we will be happy to assist you. [facility] Your Care Team Attending Physician Loren Ansari MD Discharging Providers Loren Ansari MD Reason for Admission chest pain Your Diagnosis Chest pain Tests Performed Below is a partial list of the tests performed during your hospitalization. You may have had other tests and procedures not included in this list. Please discuss all test results with your provider. Basic Metabolic Panel CBC CBC w/ Differential COVID-19 (Novel Coronavirus), Rapid PCR D Dimer GLUCOSE POC HCG PLUS BETA HOLD RED TUBE INR PTT Troponin T Quant Type and Screen XR Chest 2 Views Frontal and Lat Primary Care Provider Renee Saavedra MD Advance Directive Health Care Proxy on File No No qualifying data available. Discharge Vitals Temperature: 98.3 DegF Weight: 144.8 kg Pulse Rate: 70 bpm ?? Respiratory Rate: 16 br/min ?? Systolic Blood Pressure: 91 mm Hg ?? Diastolic Blood Pressure: 65 mm Hg ?? Oxygen Saturation: 98 % ?? Studies Pending All tests and labs ordered during this hospital stay have been completed unless listed below. Pleasediscuss all pending results with your provider listed above in these instructions. ?? Add On Lab Order BUN CBC Creatinine Electrolytes Glucose Level INR What to do next Instructions From Your Doctor -You were admitted to the hospital for chest pain and shortness of breath, your??cardiac work-up remain negative -Your symptoms resolved, there were no signs of pneumonia or worsening COPD -You were??advised to continue using your??oxygen and to use??sleep apnea??CPAP mask ?? -You were not sure about your medications, however no medication changes have been made,??your home nursing should resume medications as before Discharge Orders Diet:??Diabetic Diet Activity:??As tolerated Code Status:?? Full Resuscitation Condition:??Stable Prognosis:??Fair You Need to Schedule the Following Appointments Follow Up with??Quentin HORN, Renee Edwadrs When?? Where: [address] [place] [address] [place] [address]- Discharge Medications JANELLE CHEATHAM :1975 Visit Date:02/02/2022 Medications: Please continue your medications until treatment is completed or stopped by your provider. Medications not listed below should be discontinued. Discuss any questions related to medications with your provider. What How Much When Instructions Next Dose Changed Clonazepam (KlonoPIN 0.5 mg oral tablet) 0.5 tab(s) Oral Daily 02/04/22 Changed Fluticasone (Flovent HFA 110 mcg/ inh inhalation aerosol) 2 puff(s) Inhalation Twice a day 02/03/22 pm Changed Furosemide (furosemide 20 mg oral tablet) 1 tab(s) Oral Daily 02/04/22 Changed Levothyroxine (levothyroxine 75 mcg (0.075 mg) oral tablet) 90 each, TAKE 1 TABLET BY MOUTH EVERY DAY BEFORE BREAKFAST ?? 02/04/22 Changed Lisinopril (lisinopril 5 mg oral tablet) 1 tab(s) Oral Daily 02/04/22 Changed Metoprolol (Toprol XL 50 mg oral tablet, extended release) 1 tab(s) Oral Daily 02/04/22 Changed Risperidone (risperiDONE 0.5 mg oral tablet, disintegrating) 0.5 Unknown, Oral, 1 Refill(s), Take 1 Tablet by mouth 2 times daily. ?? 02/03/22 pm Changed Sertraline (Zoloft 100 mg oral tablet) 1 tab(s) Oral Daily 02/04/22 Changed Trazodone (traZODone 50 mg oral tablet) 1 tab(s) Oral 3 times a day 02/04/22 Unchanged Albuterol (albuterol 2.5mg / 3mL (0.083%) (OP)) 3 Milliliter Nebulized inhalation Every 6 hours as needed for Wheezing/Shortness of Breath 02/03/22 as needed Unchanged Albuterol (ProAir HFA 90 mcg/ inh inhalation aerosol with adapter) 2 puff(s) Inhalation Every 4 hours as needed for for wheezing 02/03/22 as needed Unchanged Atorvastatin (atorvastatin 20 mg oral tablet) 1 tab(s) Oral Daily 02/04/22 Unchanged Atorvastatin (atorvastatin 40 mg oral tablet) 30 each, TAKE 1 TABLET BY MOUTH EVERY DAY ?? 02/04/22 Unchanged Cetirizine (ZyrTEC 10 mg oral tablet) 1 tab(s) Oral Daily 02/04/22 Unchanged Cholecalciferol (Vitamin D3 50,000 intl units oral capsule) 4 each, TAKE 1 CAPSULE BY MOUTH ONE TIME PER WEEK ?? resume previous schedule Unchanged dapagliflozin (Farxiga 5 mg oral tablet) 1 tab(s) Oral Daily 02/04/22 Unchanged Dicyclomine (Bentyl 10 mg oral capsule) 1 capsule Oral 4 times a day 02/03/22 as needed for abdominal spasms Unchanged dulaglutide (dulaglutide 1.5 mg/ 0.5 mL subcutaneous solution) 0.5 Milliliter Subcutaneous Injection Every week resume previous weekly schedule Unchanged Durable Medical Equipment (INR) See instructions to be obtained - 02/25 Please forward to Renee Saavedra MD. ?? Unchanged Ferrous Sulfate (ferrous sulfate 325 mg oral enteric coated tablet) 1 Unknown, Oral, 4 Refill(s), Take 1 Tablet by mouth 2 times daily for 30 days. ?? Unchanged Fluticasone Nasal (Flonase 50 mcg/ inh nasal spray) 2 spray(s) Nares, Both Daily in the morning 02/04/22 Unchanged Insulin Detemir (Levemir FlexTouch 100 units/ mL subcutaneous solution) 60 unit(s) Subcutaneous Infusion Twice a day 02/03/22 pm Unchanged Insulin Lispro (Humalog Kwik Pen 100 units/ mL subcutaneous injection) Subcutaneous Infusion TID AC SC. < 110 0 units, 111-149 2 units, 150-199 4 units and so on until >399 24 units, call MD ?? 02/03/22 take with meals Unchanged Ketotifen Ophthalmic (ketotifen 0.025% ophthalmic solution) 1 Drops Both eyes Every 12 hours 02/03/22 Unchanged Lamotrigine (lamotrigine 25 mg oral tablet) 1 tab(s) Oral Daily 02/04/22 Unchanged Lidocaine Topical (Lidoderm 5% film) 1 patch(es) Topically Daily 02/04/22 Unchanged Loratadine (loratadine 10 mg oral tablet) 30 each, TAKE 1 TABLET BY MOUTH DAILY NEEDED FOR ALLERGIES. ?? 02/03/22 as needed for allergies Unchanged MedroxyPROGESTERone (Provera 10 mg oral tablet) 2 tab(s) Oral Daily 02/04/22 Unchanged Metformin (metFORMIN 1000 mg oral tablet) 180 each, TAKE 1 TABLET BY MOUTH TWICE A DAY ?? 02/03/22 pm Unchanged Metformin (metFORMIN 1000 mg oral tablet) 1 tab(s) Oral Twice a day Unchanged Miscellaneous Rx (INR Lab) See instructions Lab: Check INR on Diagnosis: PULMONARY Embolism ICD I26.9 ?? Unchanged Omeprazole (omeprazole 20 mg oral enteric coated capsule) 1 capsule Oral Daily 02/04/22 Unchanged Oxygen See instructions 2-4 liters nasal continuous (2 liters with rest, 4 liters with activity) ?? 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 02/04/22 Unchanged Warfarin (warfarin 10 mg oral tablet) 1 tab(s) Oral Daily 02/03/22 Unchanged Warfarin (warfarin 5 mg oral tablet) See instructions 2-3 tablets By Mouth Daily as directed ?? Test Results Below is a partial list of the most recent Laboratory test results done prior to this discharge. You may have had other tests and procedures not included in this list. Please discuss all test results with your provider. Basic Metabolic Panel (02/02/2022) ???Sodium - 138 mmol/L???Potassium - 4.9 mmol/L???Chloride - 98 mmol/L???Bicarbonate Level - 30 mmol/L???Anion Gap - 10???Glucose Level - 326 mg/dL???BUN - 15 mg/dL???Creatinine-Blood - 1.1 mg/dL???Estimated GFR Creatinine - 65 ML/MIN/1.73 M2???Calcium - 9.8 mg/dL CBC (02/03/2022) ???WBC - 8.9 k/mm3???RBC - 4.76 m/mm3???Hgb - 12.3 Gm/dL???Hct - 40.5 %???MCV - 85.1 femtoliters???MCH - 25.8 pg???MCHC - 30.4 g/dL???Platelet Count - 284 k/mm3???RDW-SD - 55.5 femtoliters???MPV - 10.1femtoliters???Nucleated RBC (Automated) - 0.0 #/100 WBC'S???Abs. NRBC - 0.0 k/mm3 CBC w/ Differential (02/02/2022) ???WBC - 8.6 k/mm3???RBC - 4.95 m/mm3???Hgb - 12.9 Gm/dL???Hct - 41.7 %???MCV - 84.2 femtoliters???MCH - 26.1 pg???MCHC - 30.9 g/dL???Platelet Count - 317 k/mm3???RDW-SD - 54.5 femtoliters???MPV - 10.5femtoliters???Nucleated RBC (Automated) - 0.0 #/100 WBC'S???Abs. NRBC - 0.0 k/mm3???Abs. Neut - 5.2 k /mm3???Abs. Lymph - 2.3 k/mm3???Abs. Sterling - 0.7 k/mm3???Abs. Eo - 0.2 k/mm3???Abs. Baso - 0.1 k/mm3???Neut % - 60.5 %???Lymph % - 27.4 %???Sterling % - 8.7 %???Eos % - 2.3 %???Baso % - 0.7 %???Imm Gran - 0.4 %???Abs. Imm Gran - 0.0 k/mm3 COVID-19 (Novel Coronavirus), Rapid PCR (02/02/2022) ???COVID-19 by RT-PCR - NEGATIVE D Dimer (02/02/2022) ? ?D-Dimer - <0.19 mg/L FEU GLUCOSE POC (02/03/2022) ???Glucose, POC - 67 mg/dL HCG PLUS BETA (02/02/2022) ? ?BHCG (HCG & Beta) - <1 mIU/mL HOLD RED TUBE (02/02/2022) ???Hold Red Top - SPECIMEN DISCARDED AFTER 1 WEEK INR (02/03/2022) ???INR - 1.6???Protime (PT) - 16.7 seconds PTT (02/02/2022) ???APTT - 29.1 seconds Troponin T Quant (02/03/2022) ? ?Troponin T Quant - <0.01 ng/mL Type and Screen (02/02/2022) ???Blood Type - A Positive???Antibody Screen - Negative Allergies (NKA means No Known Allergies) Adhesive Bandage Aspirin Enteric Coated Bee Stings Egg Allergy Lactose Latex Lovenox HP??(vomiting) Peanuts oxyCODONE??(Aspirin indicated) penicillin tuberculin purified protein derivative Problems Active Problems??(34) Anxiety?? Asthma - moderate persistent. 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 Borderline personality disorder?? Chronic headache disorder - migraines?? Cognitive impairment - lives independently in an apartment but is supervised/assisted by [facility]?? COPD with emphysema?? Depression?? Diabetes mellitus with nephropathy - on insulin, metformin, and dulaglutide. ??Diabetes uncontrolled,?? Dyslipidemia?? Dysmenorrhea?? Family history of breast cancer (sister)?? Former smoker, start 04/14/95, quit 01/12/03?? GERD (gastroesophageal reflux disease). 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 Hemorrhoids?? History of Mirena IUD placed fall 2013 but it became malpositioned and was subsequently removed 10/11?? History of pulmonary embolus status post embolectomy on lifelong anticoagulation with coumadin?? Hyperlipidemia?? Hypertension?? Hypothyroid?? Hypoventilation syndrome secondary to morbid obesity?? IBS (irritable bowel syndrome)?? Last pap smear 06/01/18 negative with negative HPV?? Latent tuberculosis - Negative CXR 09/06/16. Is supposed to be taking INH and seeing the [facility]?? Menorrhagia - on provera. Endometrial biopsy 01/17/18 at [place]?? Obesity?? ROGERIO (obstructive sleep apnea), severe with nocturnal hyopoxemia. Was on CPAP but she thinks someone?? Oxygen dependent?? 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 Poor historian?? Proteinuria?? 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 PTSD (post-traumatic stress disorder)?? Pulmonary hypertension?? Thyroid disease NOS - patient not sure if she is too high or too low?? Education Materials Below is the list of Educational Leaflet Providered with your Discharge Instructions. Valuables and Belongings I fully understand and agree that [facility] accepts no responsibility for all my personal property including clothing, toilet articles, radios, jewelry, dentures, hearing aids, rings, money, or any other property that is in my possession or is brought to me after admission. I understand certain valuables may be placed in a hospital safe for a short period of time. I understand that the hospital is not liable for loss or damage due to accident, fire, or other natural occurrence while said property is in the safe. I accept full responsibility for any personal property that I keep with me, and will not hold the hospital responsible in case of loss or disappearance. I acknowledge that i have been encouraged to send valuables and belongings home. ?? Review of Valuable and Belonging List: With patient, With witness Date for Pt to Sign Valuables/Belongings: 02/02/22 20:02:00 ?? Other Discharge Information ? Case Management Discharge Plan?? Discharge Plan?? Discharge Agency Information?? Discharge Level of Care at Discharge: Homehealth/VNA Name of Agency #1: [facility] Service Categories #1: Jail ?? Pulmonary Rehab Status?? Pulmonary Rehab Discharge Status?? Respiratory Rate: 16 br/min ? Common Emergency Awareness Tips IS IT A STROKE? Act FAST and Check for these signs: FACE Does the face look uneven? ARM Does one arm drift down? SPEECH Does their speech sound strange? TIME Call at any sign of stroke ?? Heart Attack Signs Chest discomfort: Most heart attacks involve discomfort in the center of the chest and lasts more than a few minutes, or goes away and comes back. It can feel like uncomfortable pressure, squeezing, fullness or pain. Discomfort in upper body: Symptoms can include pain or discomfort in one or both arms, back, neck, jaw or stomach. Shortness of breath: With or without discomfort. Other signs: Breaking out in a cold sweat, nausea, or lightheaded. Remember, MINUTES DO MATTER. If you experience any of these heart attack warning signs, call to get immediate medical attention! ?? Smoking can increase your chances of developing chronic health problems and can cause harmful effects to other family members in your house. If you smoke, you are strongly encouraged to quit. Please call [facility] at [phone] or [phone] ([phone]) or log in to www.[email or web address]org for referrals to smoking cessation programs. ?? The National Suicide Prevention Hotline is available 18/10 if you or someone you know needs to find areason to keep living. By calling 5-093-566-KOEZY (3200) you'll be connected to a skilled, trained counselor at a crisis center in your area. INPATIENT DISCHARGE INSTRUCTIONS SIGNATURE PAGE JANELLE CHEATHAM Location:[facility] Registration Date and Time:02/02/2022 12:52 EST Primary Care Physician: Quentin HORN, Renee Edwards, I CHAPARRITAJAZMINEJANELLE, have received the above patient education materials/instructions and have verbalized understanding. If ambulance or transport services are being used I further acknowledge being given a choice of service. ?? If you need to contact me, please call me at this number: . Patient/Rail Manager Name: Patient/Rail Manager Signature: Relationship to Patient: Witness Name/Signature: Date: Cyn Celestin RN: PERFORM Event Display: Patient Education Leaflets Authored Date: [id number] Warfarin Oral Tablet ?? [id number] Warfarin Oral Tablet Brands: Coumadin, Jantoven Uses This medicine is used for the following purposes: ??? prevent blood clots ??? blood clot ?? Instructions This medicine may be taken with or without food. It is very important that you take the medicine at about the same time every day. It will work bestif you do this. Keep the medicine at room temperature. Avoid heat and direct light. It is important that you keep taking each dose of this medicine on time even if you are feeling well. If you forget to take a dose on time, take it as soon as you remember. If you don't remember until the next day, please call your doctor for instructions. Never take a double dose or skip a dose unless your provider tells you to do so. Tell your doctor and pharmacist about all your medicines. Include prescription and pdph-ntz-prrgaidtrdhbzayk, vitamins, and herbal medicines. ?? Cautions Tell your doctor and pharmacist if you ever had an allergic reaction to a medicine. Do not use the medication any more than instructed. Contact your doctor if you notice a change in the amount or darkening of your urine. Tell the doctor or pharmacist if you are , planning to be , or . Women who are or in their childbearing years should not touch or handle this medicine. This medicine can be absorbed through the woman's skin and harm the unborn baby. Call your doctor right away if you notice any unusual bleeding or bruising. Do not share this medicine with anyone who has not been prescribed this medicine. ?? Side Effects The following is a list of some common side effects from this medicine. Please speak with your doctor about what you should do if you experience these or other side effects. ??? increased risk of bruising and bleeding ??? liver problems ??? nausea ??? red, burning, or itchy skin ??? stomach upset or abdominal pain ??? bloody or dark, tarry stools Call your doctor or get medical help right away if you notice any of these more serious side effects: ??? loss of balance ??? bleeding or bruising ??? chest pain ??? coughing up blood or vomit that looks like coffee grounds ??? dizziness ??? fainting ??? severe or persistent headache ??? sudden leg pain, swelling, warmth or redness ??? signs of liver damage (such as yellowing of eye or skin, dark urine, or unusual tiredness) ??? pale or blue skin, lips or fingernails ??? light colored stool ??? symptoms of stroke (such as one-sided weakness, slurred speech, confusion) ??? blood in urine A few people may have an allergic reaction to this medicine. Symptoms can include difficulty breathing, skin rash, itching, swelling, or severe dizziness. If you notice any of these symptoms, seek medical help quickly. ?? Extra Please speak with your doctor, nurse, or pharmacist if you have any questions about this medicine. ?? [email or web address] IMPORTANT NOTE: This document tells you briefly how to take your medicine, but it does not tell youall there is to know about it. Your doctor or pharmacist may give you other documents about your medicine. Please talk to them if you have any questions. Always follow their advice. There is a more complete description of this medicine available in Faroese. Scan this code on your smartphone or tablet or use the web address below. You can also ask your pharmacist for a printout. If you have any questions, please ask your pharmacist. The display and use of this drug information is subject to Terms of Use. Copyright(c) 2021 [employer]. ?? [employer]. All rights reserved. This information is not intended as a substitute for professional medical care. Always follow your healthcare professional's instructions. ??Cyn Celestin RN: PERFORM Event Display: Patient Education Leaflets Authored Date: [id number] Noncardiac Chest Pain ?? [id number] Noncardiac Chest Pain In most cases, people who come to the emergency room with chest pain don???t have a problem with their heart. Instead, the pain is caused by other conditions. It's important for the healthcare team brea sure you are not having a life-threatening cause for chest pain such as: ??? Heart attack ??? Blood clot in the lungs ??? Collapsed lung ??? Ruptured esophagus ??? Tearing of the aorta Once these major causes have been ruled out, you may have further evaluation for other causes of chest pain. These may be problems with the lungs, muscles, bones, digestive tract, nerves, or mental health. They include: ??? Inflammation around the lungs (pleurisy) ??? Collapsed lung (pneumothorax) ??? Lung inflammation (pleuritis or pneumonitis) ??? Fluid around the lung (pleural effusion) ??? Lung cancer (rare causeof chest pain) ??? Inflamed cartilage between the ribs (costochondritis) ??? Fibromyalgia ??? Rheumatoid arthritis ??? Chest wall strain ??? Reflux ??? Stomach ulcer ??? Spasms of the esophagus ??? Gall stones ??? Gallbladder inflammation ??? Panic or anxiety attacks ??? Emotional distress Your pain doesn???t seem to be coming from your heart. But sometimes the signs of a serious problemtake more time to appear. Continue to watch for the warning signs listed below. Home care Follow these guidelines when caring for yourself at home: ??? Rest today and don't do any strenuousactivity. ??? Take any prescribed medicine as directed. ?? Follow-up care Follow up with your healthcare provider as advised. ?? Call 911 Call 911 if any of these occur: ??? A change in the type of pain: if it feels different, becomes more severe, lasts longer, or begins to spread into your shoulder, arm, neck, jaw or back ??? Shortnessof breath or increased pain with breathing ??? Weakness, dizziness, or fainting ??? Rapid heart beat??? Crushing sensation in your chest ?? When to seek medical advice Call your healthcare provider right away if any of these occur: ??? Cough with dark colored sputum (phlegm) or blood ??? Fever of 100.4??F (38??C) or higher, or as directed by your healthcare provider??? Swelling, pain or redness in one leg ?? Last Reviewed Date: 2021 ?? 1770-1936 [employer]. All rights reserved. This information is not intended as a substitute for professional medical care. Always follow your healthcare professional's instructions. ??BHSPowerscribe , CIS S: TRANSCRIGENET Echevarria MD, Ran Westfall: VERIFY Event Display: Result: Authored Date: [id number] Chest 2 Views Frontal and Lat Reason: Other:; Chest Pain; Clinical Question(s): CHF COMPARISON: Prior chest radiograph dated February 15, 2020. FINDINGS: LINES AND TUBES: Sternotomy wires with unchanged fracturing of the left aspect of the superior most wire. LUNGS AND PLEURA: Low lung volumes with bronchovascular crowding and mild vascular congestion but no ezekiel edema. Obscuration of left hemidiaphragm. HEART, MEDIASTINUM AND JOCELYN: Moderate to severe appearing cardiomegaly is exaggerated by AP and lordotic technique. BONES AND SOFT TISSUES: No acute abnormality. Mild spinal degenerative changes. IMPRESSION: 1. Low lung volumes with bronchovascular crowding and mild vascular congestion but no ezekiel edema. 2. Obscuration of the left hemidiaphragm, which may be due to atelectasis from low lung volumes or consolidation in the retrocardiac region. WSN: [id number] Ordering Physician: Eddie Mendoza Dictated By: Ran Echevarria MD Dictated Date/Time: 02/02/22 4:04 pm Reviewed By: Ran Echevarria MD Signed By: Ran Echevarria MD Signed Date/Time: 02/02/22 4:04 pm Transcribed By: DOTTIE Transcribed Date/Time: 02/02/22 4:03 pm Hospital Progress note Kurt Metzger RN: PERFORM, SIGN, VERIFY Event Display: Progress Note Hospital Authored Date: Patient: JANELLE CHEATHAM Age: 46 years Sex: Female : 1975 Associated Diagnoses: None Author: Kurt Metzger RN Findings Narrative/Incidental Came from ED A/Ox3, VSS, ambulates with walker at home. On 2LPM of O2 saturating well denies SOB, still c/o mild left sided chest pressure. trops (-)x3 Placed a bed side commode. SR on tele, started heparin drip @ 12units/kg/hr, verified with Diane CURRY, repeat PTT @ 1030am, safety measures maintained, will continue to monitor.. Patient Care team information Care Team PersonnelName: Stanley CURRY, Alissa Position: [facility] RN Member Role: Primary Care Nurse Name: Renee Saavedra MD Position: [facility] Primary Care Physician Member Role: PCP Address: Address: [address] [place] [address] [place] [address]- Name: Jonathan Post DO Position: [facility] Renal MD Member Role: Lifetime Consulting Physician Address: Address: [address] [place] [address] [address] [facility] [place] [address]- Name: *Sohail DURHAM Attending Position: [facility] ED Medicine Name: Yvette Moise RN Position: [facility] ED RN W/OE and Tasks Member Role: Patient Care Provider Name: Paola Rowland Position: [facility] ED TA KASSY Name: Ce Benson RN Position: [facility] ED RN W/OE and Tasks Member Role: Patient Care Provider Name: Bello Zhou DO Position: [facility] Resident Member Role: Resident Address: Address: [address] [place] [address] Emergency [place], [place] [address] Care Team Related PersonsName: GUERITA CLAY Address: [place] [address]
[2022-03-01 14:28] LABS: Appearance Urine Clear; Color Urine Yellow; Glucose Urine UA >=1000 mg/dL (Negative); Leukocyte Esterase Urine Negative (Negative); Nitrite Urine Negative (Negative); PH 5.5 (5.0-9.0); Specific Gravity - Urine 1.015 (1.005-1.025); UMIC TRIGGER UACC YES; Urine Blood Negative (Negative); Urine Ketones Negative (Negative); Urine Protein Negative (Neg-Trace)
[2022-03-01 14:29] LABS: UPreg QC Valid YES
[2022-03-01 14:30] LABS: Urine Pregnancy NEGATIVE (NEGATIVE)
[2022-03-01 14:34] LABS: Bacteria Urine None Seen (None Seen); Hyaline Casts Urine 0-2 /LPF (0-2); RBC Urine 0-2 /HPF (0-2); Squamous Epithelial Cell Urine 0-2 /HPF (0-2); WBC Urine 0-5 /HPF (0-5)
--- NOTE | 2022-03-01 14:58 | ED_ITS ---
HPI - Seizure General Chief Complaint: Seizure Stated Complaint: SEIZURE ? Time Seen by Provider: 03/01/22 14:12 Source: patient and EMS Mode of arrival: EMS Limitations: no limitations History of Present Illness HPI Narrative: Patient is a 46 year old female with a PMH of borderline personality disorder, PTSD, CHF, Type II diabetes, HTN, asthma who presents to the ED today due to a pseudo seizure. Patient reports being in a convenience store around 1pm when she started seizing. She states that the branch store manager and staff helped her out and called 911 as they had never seen her in that state before and were concerned. Patient reports that she believes the seizure happened for less than 5 minutes and felt a bit light headed afterwards. She however reports these episodes have previously happened before and is not out of the ordinary for her. Patient states that kimo seizure was precipitated by life stressors and the thought of upcoming holidays as she has no close family around. Patient states she has a mild headache but denies any loss of consciousness, fall, direct trauma or injury to the head or any other part of her body. Patient denies any incontinence or postictal behavior. Patient reports no other issues, complains or concerns at this time. MD complaint: seizure Onset (ago): hour(s) (two hours ago ) -: minutes(s) (less than 5 minutes) Witnessed: Yes - by Bystander Trauma: No Seizure History: Yes Place: Outdoors (at a convenience store) Possible Precipitating Event: stress Associated symptoms: denies other symptoms Treatments prior to arrival: none Related Data Home Medications Medication Instructions Recorded Confirmed dulaglutide 4.5 mg/0.5 mL 4.5 mg subcut FR 03/24/21 09/22/21 subcutaneous pen injector (Trulicity) furosemide 20 mg tablet 1 tab PO DAILY 05/26/21 09/22/21 levothyroxine 75 mcg tablet 1 tab PO DAILY 05/26/21 09/22/21 lisinopril 5 mg tablet 1 tab PO DAILY 05/26/21 09/22/21 loratadine 10 mg tablet 1 tab PO DAILY 05/26/21 09/22/21 metoprolol succinate 50 mg 1 tab PO DAILY 05/26/21 09/22/21 tablet,extended release 24 hr omeprazole 20 mg capsule,delayed 1 cap PO DAILY 05/26/21 09/22/21 release trazodone 50 mg tablet 1 tab PO BEDTIME 05/26/21 09/22/21 albuterol sulfate 90 mcg/actuation 2 puff inhalation Q4H PRN Wheezing 07/14/21 09/22/21 aerosol inhaler (ProAir HFA) clonazepam 1 mg tablet 0.5 tab PO BID PRN anxiety 07/14/21 09/22/21 medroxyprogesterone 10 mg tablet 1 tab PO DAILY 07/14/21 09/22/21 warfarin 5 mg tablet 1 tab PO DAILY@1700 07/14/21 09/22/21 fluticasone propionate 110 2 puff inhalation BID 07/22/21 09/22/21 mcg/actuation HFA aerosol inhaler (Flovent HFA) sertraline 100 mg tablet 1.5 tab PO QAM 07/22/21 09/22/21 Previous Rx's Medication Instructions Recorded albuterol sulfate 2.5 mg/3 mL 2.5 mg (3 mL) inhalation QID PRN 11/17/20 (0.083 %) solution for nebulization Allergic Reaction #3 mL lamotrigine 25 mg tablet 25 mg PO BEDTIME #15 tabs 06/05/21 risperidone 0.5 mg tablet 0.5 mg PO BID PRN PTSD sx, 06/05/21 grounding sx #14 tabs flash glucose sensor (FreeStyle #2 ea 06/23/21 Shelby 2 Sensor kit) flash glucose scanning reader #1 ea 07/22/21 (FreeStyle [place] 2 [place]) pen needle, diabetic 32 gauge x #100 ea 09/04/21/32 (BD Ultra-Fine Leslie Pen Needle) insulin glargine U-300 conc 300 40 unit (0.1333 mL) subcut BEDTIME 09/22/21 unit/mL (3 mL) subcutaneous pen 30 days #6 mL (Toujeo Max U-300 SoloStar) insulin lispro 100 unit/mL See Rx Instructions subcut 09/22/21 subcutaneous pen (Humalog KwikPen TIDWMEAL #15 mL (U-100) Insulin) metformin 1,000 mg tablet 1,000 mg PO BID 90 days #180 tabs 09/22/21 atorvastatin 40 mg tablet 40 mg PO DAILY #30 tabs 10/26/21 dapagliflozin 5 mg tablet (Farxiga) 5 mg PO DAILY #30 tabs 01/05/22 Allergies Allergy/AdvReac Type Severity Reaction Status Date / Time Penicillins [PENICILLINS] Allergy Intermediate HIVES Verified 09/22/21 14:56 egg [Egg] Allergy Mild SWELLING Verified 09/22/21 14:56 aspirin Allergy Unknown Unknown Verified 09/22/21 14:56 bee pollen [BEE STINGS] Allergy Unknown UNKNOWN Verified 09/22/21 14:56 lactose [LACTOSE] Allergy Unknown UNKNOWN Verified 09/22/21 14:56 latex [LATEX] Allergy Unknown HIVES Verified 09/22/21 14:56 oxycodone Allergy Unknown Unknown Verified 09/22/21 14:56 peanut [PEANUT] Allergy Unknown UNKNOWN Verified 09/22/21 14:56 penicillin V Allergy Unknown Unknown Verified 09/22/21 14:56 kiwi Allergy Anaphylaxis Verified 09/22/21 14:56 eggs,bees,latex,peanuts Allergy Unknown Unknown Uncoded 09/22/21 14:56 medical tape Allergy Unknown Unknown Uncoded 09/22/21 14:56 TAPE,PLASTIC Allergy Unknown RASH Uncoded 09/22/21 14:56 Review of Systems Review of Systems: Constitutional : No Fever, No Chills, No Night Sweats, No Fatigue, No Malaise ENT/Mouth : No Ear Pain, No Nasal Congestion, No Sinus Pain, No sore throat, No Rhinorrhea Eyes: No Eye Pain, No Swelling, No Redness, No Foreign Body, No Discharge, No Vision Changes Cardiovascular : No Chest Pain, + mild SOB, No Dyspnea on Exertion, No Orthopnea, No Palpitations Respiratory : No Cough, No Sputum, No Wheezing, No Dyspnea Gastrointestinal : No Nausea, No Vomiting, No Diarrhea, No Constipation, No abdominal Pain, No Hematochezia, No Melena Genitourinary : No Dysuria, No Urinary Frequency, No Urinary Incontinence, No Urgency, No Flank Pain Musculoskeletal : No joint pain, No Myalgias Skin : No rashes/ lacerations Neuro : No Focal weakness, no general weakness, No Numbness, No Paresthesias, No Loss of Consciousness, No Dizziness, + Headache Psych: Patient reports being a bit stressed as the holidays are coming up with no close family around. No other changes in mood or behavior. Yes all other systems are reviewed and are negative PMFSH Past Medical History Attestation statement: The following information was validated with the patient. Source: old records reviewed and nursing notes reviewed Medical History Acute hyperglycemia Anxiety Asthma BMI 50.0-59.9, adult Cardiomyopathy CHF (congestive heart failure) Depression Diabetes mellitus, type 2 Diabetes type 2, uncontrolled DVT (deep vein thrombosis) in Essential hypertension Gallstones Hyperlipidemia LDL goal <70 Hypertension Hypothyroidism Irritable bowel Mood disorder Obesity due to excess calories ROGERIO (obstructive sleep apnea) Pancreatitis Proteinuria PTSD (post-traumatic stress disorder) PTSD (post-traumatic stress disorder) Pulmonary embolism Recurrent major depression Surgical History History of dental surgery History of open heart surgery Hx of hernia repair Hx of removal of cyst Family History Family History Paternal Grandmother Diabetes Social History Social History Household Members: Unknown / Unable to assess Housing: Apartment Housing Other:: 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 Do you presently have visiting nurse or other home services: Yes Unable to assess alcohol history related to: Refusing to respond Alcohol intake: never Patient Tobacco Use Status: Former Tobacco user Tobacco use type: Cigarette e-Cigarette/Vaping Use: Never Used Second Hand Smoke Exposure: Yes Substance Use Type: Marijuana Advance Directives: No Advance Directives Information Provided: No service: No Sexual orientation: Lesbian/Good/Homosexual Physical Exam Vital Signs: Vital Signs: Last Vital Signs Temp 98.8 F 03/01/22 14:05 Pulse 90 03/01/22 14:05 Resp 18 03/01/22 14:05 BP 151/66 H 03/01/22 14:05 Pulse Ox 96 03/01/22 14:05 O2 Del Method 03/01/22 14:05 BMI result Body Mass Index 51.6 vital signs have been reviewed and appeared to be correct. Blood pressure is 151/66. Heart rate normal. Respiration rate normal. Temperature normal. Oxygen saturation normal. Appearance: Alert. Oriented X3. No acute distress. Head: Normal external exam. Normocephalic. Atraumatic. Eyes: PERRLA. EOMI. Conjunctiva and sclera normal. Eyelids normal. ENT: EAC normal. TM's Normal. Pharynx normal. Uvula midline. Moist mucous memb ranes. No lesions/ulcerations or masses noted on the tongue. Normal voice. No trismus noted. No drooling noted. No muffled voice noted. Neck: Normal inspection. Neck supple. FROM. Thyroid Normal. No neck mass noted. No signs of trauma noted. CVS: Normal heart rate and rhythm. Heart sound normal. No murmurs/rales/gallops. Respiratory: No respiratory distress. Painless inspiration. Breath sounds normal. No wheezes/rales/rhonchi noted. Chest nontender. No accessory muscle usage noted or decreased air movement noted. No signs of trauma. Abdomen: Soft and nontender. Nondistended. No guarding. No rigidity. Bowel sounds normal in all 4 quadrants. No visible injury noted. Back: Full range of motion noted. Nontender. No signs of trauma. No rashes/lesion/induration/fluctuance or signs of infection noted. Skin: Skin warm and dry. Normal skin color. Normal skin turgor. No rashes/lesions/lacerations noted. Extremities: No lower extremity edema. No calf tenderness is noted. Ext remities exhibit normal range of motion and nontender. Neuro: Oriented X 3. No motor deficit. No sensory deficit. Reflexes normal. Normal steady gait. No focal neuro deficits noted. Psych: Patient has a normal affect, mental status, speech and movement are normal. Good insight and judgement. Psych: Appearance: grossly normal Mental Status: mental status grossly normal Speech and movement: Normal speech and movement present and Clear speech present Affect: normal affect Attitude: cooperative Thought process: Normal thought process present Thought content: Normal thought content present Insight: Good insight present (Psych) Judgement: Good judgement present (Psych) Course Course Course Narrative: Patient is a 46 year old female with a PMH of borderline personality disorder, PTSD, CHF, Type II diabetes, HTN, asthma who presents to the ED today due to a pseudo seizure. Patient also reports mild headache but denies any loss of consciousness, fall, direct trauma or injury to the head or any other part of her body. Patient denies any incontinence or postictal behavior. On physical exam patient was alert, oriented and co operative. Patient has an elevated blood pressure with a history of hypertension. Patient was on supplemental oxygen via nasal cannuli as she reported mild shortness of breath, O2 Sat was within normal limits on exam. Neurological exam revealed no abnormalities. Plan: Patient given tylenol PO for headache. No additional labs or imaging indicated as patient reports she feels completely fine and did not feel that she then had to come to the hospital. Therefore at this time patient will be discharged. Medications Administered Discontinued Medications Generic Name Dose Route Start Last Admin Trade Name Freq PRN Reason Stop Dose Admin Acetaminophen 975 mg 03/01/22 15:08 03/01/22 15:23 Acetaminophen 325 Mg Tablet PO 03/01/22 15:09 975 mg ONCE ONE Administration Discharge Plan Discharge Clinical Impression: Anxiety, Pseudoseizures Patient Disposition: Home, Self-Care Instructions: Anxiety (ED) Prescriptions: No Action (DME) FreeStyle [place] 2 [place] Misc See Rx Instructions .ROUTE .MEDSUPPLY Qty: 1 0RF Rx Instructions: As directed (DME) pen needle, diabetic [BD Ultra-Fine Leslie Pen Needle] 32 gauge x 5/32 needle See Rx Instructions .ROUTE .MEDSUPPLY Qty: 100 11RF Rx Instructions: As directed three times a day atorvastatin 40 mg tablet 40 mg PO DAILY Qty: 30 6RF Farxiga 5 mg tablet 5 mg PO DAILY Qty: 30 0RF albuterol sulfate 2.5 mg /3 mL (0.083 %) Solution For Nebulization 2.5 mg inhalation QID PRN (Reason: Allergic Reaction) Qty: 3 0RF Trulicity 4.5 mg/0.5 mL pen injector 4.5 mg subcut FR furosemide 20 mg tablet 1 tab PO DAILY lisinopril 5 mg tablet 1 tab PO DAILY levothyroxine 75 mcg tablet 1 tab PO DAILY loratadine 10 mg tablet 1 tab PO DAILY metoprolol succinate 50 mg tablet extended release 24 hr 1 tab PO DAILY omeprazole 20 mg capsule,delayed release(DR/EC) 1 cap PO DAILY trazodone 50 mg tablet 1 tab PO BEDTIME lamotrigine 25 mg Tablet 25 mg PO BEDTIME Qty: 15 1RF risperidone 0.5 mg Tablet 0.5 mg PO BID PRN (Reason: PTSD sx, grounding sx) Qty: 14 2RF sertraline 100 mg tablet 1.5 tab PO QAM Flovent HFA 110 mcg/actuation HFA aerosol inhaler 2 puff inhalation BID medroxyprogesterone 10 mg tablet 1 tab PO DAILY clonazepam 1 mg tablet 0.5 tab PO BID PRN (Reason: anxiety) albuterol sulfate [ProAir HFA] 90 mcg/actuation HFA aerosol inhaler 2 puff inhalation Q4H PRN (Reason: Wheezing) warfarin 5 mg tablet 1 tab PO DAILY@1700 Toujeo Max U-300 SoloStar 300 unit/mL (3 mL) insulin pen 40 unit subcut BEDTIME 30 Days Qty: 6 4RF insulin lispro [Humalog KwikPen Insulin] 100 unit/mL insulin pen See Rx Instructions subcut TIDWMEAL Qty: 15 6RF Rx Instructions: 8 u shake, 12 u small meal, 16 u lreg/lrg meal subcutaneously 3 times per day with meals; metformin 1,000 mg tablet 1,000 mg PO BID 90 Days Qty: 180 1RF (DME) FreeStyle Shelby 2 Sensor Kit See Rx Instructions .ROUTE .MEDSUPPLY Qty: 2 11RF Rx Instructions: As directed every 2 weeks Referrals: Maria Guadalupe Severino MD [Primary Care Provider] - 2 days Interventions: ED Discharge Assessment Last Done: 03/01/22 15:31 Discharge Date/Time: 03/01/22 15:32
[2022-03-01] MEDS: Acetaminophen 325 MG TABLET 975 MG PO (15:23)
== END 2022-03-01 15:32 | disposition home or self-care (01) ==
PROVIDERS: Physician Assistant Medical; Emergency Provider Emergency Medicine; PCP Internal Medicine
DX: F41.9 Anxiety disorder, unspecified (principal); R56.9 Unspecified convulsions; E11.9 Type 2 diabetes mellitus without complications; I10 Essential (primary) hypertension; E78.5 Hyperlipidemia, unspecified; E66.9 Obesity, unspecified; Z68.43 Body mass index [BMI] 50.0-59.9, adult; Z86.711 Personal history of pulmonary embolism; Z79.02 Long term (current) use of antithrombotics/antiplatelets; Z79.899 Other long term (current) drug therapy; Z79.01 Long term (current) use of anticoagulants; Z79.4 Long term (current) use of insulin
CPT/HCPCS: 81001; 81025; 99283

== ENCOUNTER 2022-04-28 13:21 | Emergency (ER) | payer OTHER, SELFPAY ==
--- NOTE | 2022-04-28 | ECG_ITS ---
Test Reason : dyspnea Blood Pressure : / mmHG Vent. Rate : 089 BPM Atrial Rate : 089 BPM P-R Int : 176 ms QRS Dur : 078 ms QT Int : 406 ms P-R-T Axes : 055 119 102 degrees QTc Int : 493 ms Normal sinus rhythm Left posterior fascicular block Prolonged QT Abnormal ECG When compared with ECG of 21-JUL-2021 00:58, No significant change was found Referred By: Generic ED Physician Electronically Signed By:Tr Cai
--- NOTE | ~2022-04-28 | XR_ITS ---
EXAMINATION: XR CHEST CLINICAL INFORMATION: Shortness of breath COMPARISON: 07/26/2021 TECHNIQUE: 2 views of the chest were obtained. FINDINGS: Again seen is mild cardiomegaly and changes of median sternotomy. Mild peribronchial thickening is seen. Some mild bibasilar atelectasis is present. No significant pleural effusions are detected. No gross CHF. No lung masses. XR/XR chest 2V IMPRESSION: Mild cardiomegaly with mild peribronchial thickening. No acute intrathoracic disease.
[2022-04-28 13:27] VITALS: BP 113/73; PULSE 92; RESP 16; TEMP 36.8; O2SAT 95; BMI 39.1
--- NOTE | 2022-04-28 13:30 | PC.NURSE ---
47 y/o F BIBA from home with SOB, is supposed to be on 2L home o2 but was not wearing it. pt is aox3, calm and cooperative, VSS. awaiting
[2022-04-28 13:42] VITALS: BP 133/64; PULSE 87; RESP 14; TEMP 37.1; O2SAT 95
[2022-04-28 13:47] LABS: Appearance Urine Cloudy; Color Urine Yellow; Glucose Urine UA 500 mg/dL (Negative); Leukocyte Esterase Urine Negative (Negative); Nitrite Urine Negative (Negative); PH 7.5 (5.0-9.0); Urine Blood Negative (Negative); Urine Ketones Negative (Negative); Urine Protein Negative (Neg-Trace)
[2022-04-28 13:49] LABS: Bacteria Urine 1+ (None Seen); Hyaline Casts Urine 0-2 /LPF (0-2); RBC Urine 0-2 /HPF (0-2); WBC Urine 0-5 /HPF (0-5)
[2022-04-28 14:01] LABS: Amphetamine Screen Urine Not Detected (Not Detect); Barbiturates, Urine Not Detected (Not Detect); Benzodiazepines Screen Urine Not Detected (Not Detect); Cannabinoid Screen Urine Not Detected (Not Detect); Cocaine Screen Urine Not Detected (Not Detect); Fentanyl, urine Not Detected (Not Detect); Opiate Screen Urine Not Detected (Not Detect); Phencyclidine Screen Urine Not Detected (Not Detect)
[2022-04-28 14:23] LABS: MANUAL DIFF FLAG NO
[2022-04-28 14:25] LABS: Basophils Percent Auto 0.4 % (0-2); Eosinophils Absolute Auto 0.1 X10*3/uL (0.0-0.4); Eosinophils Percent Auto 1.2 % (0-4); Hematocrit 42.8 % (37.0-47.0); Hemoglobin 13.8 g/dl (12.0-16.0); Imm Gran Abs Auto 0.06 X10*3/uL (0.00-0.03); Imm Gran Pct Auto 0.7 % (0.0-0.4); Lymphocytes Absolute Auto 1.9 X10*3/uL (1.2-4.9); Lymphocytes Percent Auto 20.5 % (20-40); Mean Corpuscular HGB Conc 32.2 g/dl (31.0-35.0); Mean Corpuscular Hemoglobin 28.7 pg (27.0-33.0); Mean Platelet Volume 9.8 fL (9.4-12.3); Monocytes Absolute Auto 0.5 X10*3/uL (0.1-1.2); Monocytes Percent Auto 5.4 % (2-11); Neutrophils Absolute Auto 6.6 x10*3/uL (2.0-8.3); Neutrophils Percent Auto 71.8 % (45-73); Platelet Count 249 X10*3/uL (160-400); Red Blood Count 4.81 X10*6/uL (4.20-5.50); Red Cell Distribution Width 18.2 % (11.0-16.0); White Blood Count 9.1 X10*3/uL (4.8-10.8)
[2022-04-28 14:47] LABS: Alanine Aminotransferase 15 U/L (0-31); Alkaline Phosphatase 86 U/L (39-117); Anion Gap 12 (12-20); Aspartate Amino Transferase 12 U/L (5-31); Bilirubin Total 1.5 mg/dL (0.0-1.0); Blood Urea Nitrogen 13 mg/dL (9-16); Calcium 9.4 mg/dL (8.4-10.2); Carbon Dioxide 32 mmol/L (22-29); Chloride 100 mmol/L (96-108); Creatinine Clr Calc Pharmacy 89.6; Estimated Glomerular Filt Rate 58; Glucose Fasting 323 mg/dL (60-99); Magnesium 1.6 mg/dL (1.6-2.6); Potassium 4.3 mmol/L (3.3-5.1); Sodium 140 mmol/L (135-145); Total Protein 6.9 g/dL (6.5-8.0)
[2022-04-28 14:48] LABS: B Type Natriuretic Peptide 150 pg/mL (<100)
[2022-04-28 14:52] LABS: Troponin-I High Sensitivity < 3.5 ng/L (<3.5-17.0)
--- NOTE | 2022-04-28 14:52 | ED_ITS ---
HPI - SOB/Dyspnea General Chief Complaint: Dyspnea Stated Complaint: shortness of breath Time Seen by Provider: 04/28/22 14:37 Source: patient and old records reviewed History of Present Illness HPI Narrative: Patient with the history of pulmonary embolism after which she is intermittently on oxygen. PE was many years ago. She is on lifelong warfarin therapy. Last INR check was 2 days ago and was therapeutic. No recent adjustments the INR. She states over the past 2-3 days she has had increasing cough, increasing phlegm, body aches, chills. Increased shortness of breath with this requiring more oxygen than normal. One episode of vomiting when symptoms started. No increase in chronic diarrhea. No sick contacts that she knows of. She has not been tested for influenza or COVID with this illness. She denies chest pain, abdominal pain, no nausea vomiting now. She states this feels different than when she had a blood clot. She states she feels like she is sick Related Data Home Medications Medication Instructions Recorded Confirmed dulaglutide 4.5 mg/0.5 mL 4.5 mg subcut FR 03/24/21 09/22/21 subcutaneous pen injector (Trulicity) furosemide 20 mg tablet 1 tab PO DAILY 05/26/21 09/22/21 levothyroxine 75 mcg tablet 1 tab PO DAILY 05/26/21 09/22/21 lisinopril 5 mg tablet 1 tab PO DAILY 05/26/21 09/22/21 loratadine 10 mg tablet 1 tab PO DAILY 05/26/21 09/22/21 metoprolol succinate 50 mg 1 tab PO DAILY 05/26/21 09/22/21 tablet,extended release 24 hr omeprazole 20 mg capsule,delayed 1 cap PO DAILY 05/26/21 09/22/21 release trazodone 50 mg tablet 1 tab PO BEDTIME 05/26/21 09/22/21 albuterol sulfate 90 mcg/actuation 2 puff inhalation Q4H PRN Wheezing 07/14/21 09/22/21 aerosol inhaler (ProAir HFA) clonazepam 1 mg tablet 0.5 tab PO BID PRN anxiety 07/14/21 09/22/21 medroxyprogesterone 10 mg tablet 1 tab PO DAILY 07/14/21 09/22/21 warfarin 5 mg tablet 1 tab PO DAILY@1700 07/14/21 09/22/21 fluticasone propionate 110 2 puff inhalation BID 07/22/21 09/22/21 mcg/actuation HFA aerosol inhaler (Flovent HFA) sertraline 100 mg tablet 1.5 tab PO QAM 07/22/21 09/22/21 Previous Rx's Medication Instructions Recorded albuterol sulfate 2.5 mg/3 mL 2.5 mg (3 mL) inhalation QID PRN 11/17/20 (0.083 %) solution for nebulization Allergic Reaction #3 mL lamotrigine 25 mg tablet 25 mg PO BEDTIME #15 tabs 06/05/21 risperidone 0.5 mg tablet 0.5 mg PO BID PRN PTSD sx, 06/05/21 grounding sx #14 tabs flash glucose sensor (FreeStyle #2 ea 06/23/21 Shelby 2 Sensor kit) flash glucose scanning reader #1 ea 07/22/21 (FreeStyle [place] 2 [place]) pen needle, diabetic 32 gauge x #100 ea 09/04/2132 (BD Ultra-Fine Leslie Pen Needle) insulin glargine U-300 conc 300 40 unit (0.1333 mL) subcut BEDTIME 09/22/21 unit/mL (3 mL) subcutaneous pen 30 days #6 mL (Toujeo Max U-300 SoloStar) insulin lispro 100 unit/mL See Rx Instructions subcut 09/22/21 subcutaneous pen (Humalog KwikPen TIDWMEAL #15 mL (U-100) Insulin) metformin 1,000 mg tablet 1,000 mg PO BID 90 days #180 tabs 09/22/21 atorvastatin 40 mg tablet 40 mg PO DAILY #30 tabs 10/26/21 dapagliflozin 5 mg tablet (Farxiga) 5 mg PO DAILY #30 tabs 01/05/22 prednisone 20 mg tablet 40 mg PO DAILY #10 tabs 04/28/22 Allergies Allergy/AdvReac Type Severity Reaction Status Date / Time Penicillins [PENICILLINS] Allergy Intermediate HIVES Verified 09/22/21 14:56 egg [Egg] Allergy Mild SWELLING Verified 09/22/21 14:56 aspirin Allergy Unknown Unknown Verified 09/22/21 14:56 bee pollen [BEE STINGS] Allergy Unknown UNKNOWN Verified 09/22/21 14:56 lactose [LACTOSE] Allergy Unknown UNKNOWN Verified 09/22/21 14:56 latex [LATEX] Allergy Unknown HIVES Verified 09/22/21 14:56 oxycodone Allergy Unknown Unknown Verified 09/22/21 14:56 peanut [PEANUT] Allergy Unknown UNKNOWN Verified 09/22/21 14:56 penicillin V Allergy Unknown Unknown Verified 09/22/21 14:56 kiwi Allergy Anaphylaxis Verified 09/22/21 14:56 eggs,bees,latex,peanuts Allergy Unknown Unknown Uncoded 09/22/21 14:56 medical tape Allergy Unknown Unknown Uncoded 09/22/21 14:56 TAPE,PLASTIC Allergy Unknown RASH Uncoded 09/22/21 14:56 Review of Systems Constitutional: Comments: Chills without documented fever ENT: Comments: Runny nose Cardiovascular: Comments: No chest pain Respiratory: Comments: Cough with increasing phlegm and increasing shortness of breath Gastrointestinal: Comments: No abdominal pain. No current nausea vomiting Genitourinary: Comments: No urinary symptoms Musculoskeletal: Comments: No focal weakness Integumentary/Breasts: Comments: No rash Neurologic: Comments: No focal weakness PMFSH Past Medical History Medical History Acute hyperglycemia Anxiety Asthma BMI 50.0-59.9, adult Cardiomyopathy CHF (congestive heart failure) Depression Diabetes mellitus, type 2 Diabetes type 2, uncontrolled DVT (deep vein thrombosis) in Essential hypertension Gallstones Hyperlipidemia LDL goal <70 Hypertension Hypothyroidism Irritable bowel Mood disorder Obesity due to excess calories ROGERIO (obstructive sleep apnea) Pancreatitis Proteinuria PTSD (post-traumatic stress disorder) PTSD (post-traumatic stress disorder) Pulmonary embolism Recurrent major depression Surgical History History of dental surgery History of open heart surgery Hx of hernia repair Hx of removal of cyst Family History Family History Paternal Grandmother Diabetes Social History Social History Household Members: Unknown / Unable to assess Housing: Apartment Housing Other:: 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 Do you presently have visiting nurse or other home services: Yes Unable to assess alcohol history related to: Refusing to respond Alcohol intake: never Patient Tobacco Use Status: Former Tobacco user Tobacco use type: Cigarette e-Cigarette/Vaping Use: Never Used Second Hand Smoke Exposure: Yes Substance Use Type: Marijuana Advance Directives: No Advance Directives Information Provided: No service: No Sexual orientation: Lesbian/Good/Homosexual Physical Exam Vital Signs: Vital Signs: Last Vital Signs Temp 98.8 F 04/28/22 13:42 Pulse 87 04/28/22 13:42 Resp 18 04/28/22 15:21 BP 133/64 04/28/22 13:42 Pulse Ox 95 04/28/22 13:42 O2 Del Method 04/28/22 13:42 O2 Flow Rate 3 04/28/22 13:42 Oxygen Flow Rate 2 04/28/22 13:27 BMI result Body Mass Index 39.1 Medications Administered Discontinued Medications Generic Name Dose Route Start Last Admin Trade Name Freq PRN Reason Stop Dose Admin Albuterol/Ipratropium 3 ml 04/28/22 14:49 04/28/22 15:18 Albuterol/Iprat 2.5/0.5mg 3 Ml Ampul.Neb INHALE 04/28/22 14:50 3 ml ONCE ONE Administration Prednisone 60 mg 04/28/22 14:49 04/28/22 14:58 Prednisone 20 Mg Tablet PO 04/28/22 14:50 60 mg ONCE ONE Administration Medical Decision Making Medical Decision Making MDM Narrative: Patient with increasing shortness of breath with baseline oxygen dependence. She has viral URI type symptoms. Pneumonia is still possibility. Less likely another pulmonary embolism as patient has been compliant on warfarin and this feels different as well. Will start with chest x-ray, blood work, respiratory panel. 15:12. Blood work shows normal CBC without evidence of anemia. White count is normal. Chemistries showed normal creatinine and normal electrolytes. Carbon dioxide mildly elevated at 32, but this is close to her normal baseline Troponin is normal. BNP is 150 which is also close to her baseline 16:15. Chest x-ray on my interpretation shows no obvious new infiltrates. Some cardiomegaly. Await radiology interpretation as well as respiratory panel results Lab Data 04/28/22 14:14 04/28/22 14:14 Labs: Lab Results 04/28/22 04/28/22 04/28/22 Range/Units 13:36 13:36 14:14 WBC 9.1 (4.8-10.8) X10*3/uL RBC 4.81 (4.20-5.50) X10*6/uL Hgb 13.8 D (12.0-16.0) g/dl Hct 42.8 (37.0-47.0) % MCV 89.0 (80.0-98.0) fL MCH 28.7 (27.0-33.0) pg MCHC 32.2 (31.0-35.0) g/dl RDW 18.2 H (11.0-16.0) % Plt Count 249 D (160-400) X10*3/uL MPV 9.8 (9.4-12.3) fL Immature Gran % (Auto) 0.7 H (0.0-0.4) % Neut % (Auto) 71.8 (45-73) % Lymph % (Auto) 20.5 (20-40) % [place] % (Auto) 5.4 (2-11) % Eos % (Auto) 1.2 (0-4) % Baso % (Auto) 0.4 (0-2) % Lymph # (Auto) 1.9 (1.2-4.9) X10*3/uL [place] # (Auto) 0.5 (0.1-1.2) X10*3/uL Eos # (Auto) 0.1 (0.0-0.4) X10*3/uL Baso # (Auto) 0.0 (0.0-0.2) X10*3/uL Abs Immat Gran (auto) 0.06 H (0.00-0.03) X10*3/uL Absolute Neuts (auto) 6.6 (2.0-8.3) x10*3/uL Absolute Nucleated RBC 0.000 (0.0-0.012) X10*3/uL Nucleated RBC % (auto) 0.0 (0.0-0.2) /100WBC Sodium (135-145) mmol/L Potassium (3.3-5.1) mmol/L Chloride (96-108) mmol/L Carbon Dioxide (22-29) mmol/L Anion Gap (12-20) BUN (9-16) mg/dL Creatinine (0.5-1.4) mg/dL Estim Creat Clear Calc Estimated GFR Fasting Glucose (60-99) mg/dL Calcium (8.4-10.2) mg/dL Magnesium (1.6-2.6) mg/dL Total Bilirubin (0.0-1.0) mg/dL AST (5-31) U/L ALT (0-31) U/L Alkaline Phosphatase (39-117) U/L Troponin I High Sens (<3.5-17.0) ng/L B-Natriuretic Peptide (<100) pg/mL Total Protein (6.5-8.0) g/dL Albumin (3.5-5.0) g/dL Urine Color Yellow Urine Appearance Cloudy Urine pH 7.5 (5.0-9.0) Ur Specific [place] 1.010 (1.005-1.025) Urine Protein Negative (Neg-Trace) mg/dL Urine Glucose (UA) 500 H (Negative) mg/dL Urine Ketones Negative (Negative) mg/dL Urine Blood Negative (Negative) Urine Nitrite Negative (Negative) Ur Leukocyte Esterase Negative (Negative) Urine RBC 0-2 (0-2) /HPF Urine WBC 0-5 (0-5) /HPF Ur Squamous Epith Cells 6-10 (0-2) /HPF Urine Bacteria 1+ (None Seen) Hyaline Casts 0-2 (0-2) /LPF Urine Opiates Screen Not Detected (Not Detect) Urine Fentanyl Screen Not Detected (Not Detect) Ur Barbiturates Screen Not Detected (Not Detect) Ur Phencyclidine Scrn Not Detected (Not Detect) Ur Amphetamines Screen Not Detected (Not Detect) U Benzodiazepines Scrn Not Detected (Not Detect) Urine Cocaine Screen Not Detected (Not Detect) U Marijuana (THC) Screen Not Detected (Not Detect) 04/28/22 04/28/22 04/28/22 Range/Units 14:14 14:14 14:14 WBC (4.8-10.8) X10*3/uL RBC (4.20-5.50) X10*6/uL Hgb (12.0-16.0) g/dl Hct (37.0-47.0) % MCV (80.0-98.0) fL MCH (27.0-33.0) pg MCHC (31.0-35.0) g/dl RDW (11.0-16.0) % Plt Count (160-400) X10*3/uL MPV (9.4-12.3) fL Immature Gran % (Auto) (0.0-0.4) % Neut % (Auto) (45-73) % Lymph % (Auto) (20-40) % [place] % (Auto) (2-11) % Eos % (Auto) (0-4) % Baso % (Auto) (0-2) % Lymph # (Auto) (1.2-4.9) X10*3/uL [place] # (Auto) (0.1-1.2) X10*3/uL Eos # (Auto) (0.0-0.4) X10*3/uL Baso # (Auto) (0.0-0.2) X10*3/uL Abs Immat Gran (auto) (0.00-0.03) X10*3/uL Absolute Neuts (auto) (2.0-8.3) x10*3/uL Absolute Nucleated RBC (0.0-0.012) X10*3/uL Nucleated RBC % (auto) (0.0-0.2) /100WBC Sodium 140 (135-145) mmol/L Potassium 4.3 (3.3-5.1) mmol/L Chloride 100 (96-108) mmol/L Carbon Dioxide 32 H (22-29) mmol/L Anion Gap 12 (12-20) BUN 13 (9-16) mg/dL Creatinine 1.03 (0.5-1.4) mg/dL Estim Creat Clear Calc 89.6 Estimated GFR 58 Fasting Glucose 323 H (60-99) mg/dL Calcium 9.4 (8.4-10.2) mg/dL Magnesium 1.6 (1.6-2.6) mg/dL Total Bilirubin 1.5 H (0.0-1.0) mg/dL AST 12 (5-31) U/L ALT 15 (0-31) U/L Alkaline Phosphatase 86 (39-117) U/L Troponin I High Sens < 3.5 (<3.5-17.0) ng/L B-Natriuretic Peptide 150 H (<100) pg/mL Total Protein 6.9 (6.5-8.0) g/dL Albumin 4.0 (3.5-5.0) g/dL Urine Color Urine Appearance Urine pH (5.0-9.0) Ur Specific [place] (1.005-1.025) Urine Protein (Neg-Trace) mg/dL Urine Glucose (UA) (Negative) mg/dL Urine Ketones (Negative) mg/dL Urine Blood (Negative) Urine Nitrite (Negative) Ur Leukocyte Esterase (Negative) Urine RBC (0-2) /HPF Urine WBC (0-5) /HPF Ur Squamous Epith Cells (0-2) /HPF Urine Bacteria (None Seen) Hyaline Casts (0-2) /LPF Urine Opiates Screen (Not Detect) Urine Fentanyl Screen (Not Detect) Ur Barbiturates Screen (Not Detect) Ur Phencyclidine Scrn (Not Detect) Ur Amphetamines Screen (Not Detect) U Benzodiazepines Scrn (Not Detect) Urine Cocaine Screen (Not Detect) U Marijuana (THC) Screen (Not Detect) Discharge Plan Discharge Clinical Impression: Acute bronchitis, viral Patient Disposition: Home, Self-Care Instructions: Acute Bronchitis (ED) Prescriptions: New prednisone 20 mg tablet 40 mg PO DAILY Qty: 10 0RF No Action (DME) FreeStyle Shelby 2 [place]en Misc See Rx Instructions .ROUTE .MEDSUPPLY Qty: 1 0RF Rx Instructions: As directed (DME) pen needle, diabetic [BD Ultra-Fine Leslie Pen Needle] 32 gauge x 5/32 needle See Rx Instructions .ROUTE .MEDSUPPLY Qty: 100 11RF Rx Instructions: As directed three times a day atorvastatin 40 mg tablet 40 mg PO DAILY Qty: 30 6RF Farxiga 5 mg tablet 5 mg PO DAILY Qty: 30 0RF albuterol sulfate 2.5 mg /3 mL (0.083 %) Solution For Nebulization 2.5 mg inhalation QID PRN (Reason: Allergic Reaction) Qty: 3 0RF Trulicity 4.5 mg/0.5 mL pen injector 4.5 mg subcut FR furosemide 20 mg tablet 1 tab PO DAILY lisinopril 5 mg tablet 1 tab PO DAILY levothyroxine 75 mcg tablet 1 tab PO DAILY loratadine 10 mg tablet 1 tab PO DAILY metoprolol succinate 50 mg tablet extended release 24 hr 1 tab PO DAILY omeprazole 20 mg capsule,delayed release(DR/EC) 1 cap PO DAILY trazodone 50 mg tablet 1 tab PO BEDTIME lamotrigine 25 mg Tablet 25 mg PO BEDTIME Qty: 15 1RF risperidone 0.5 mg Tablet 0.5 mg PO BID PRN (Reason: PTSD sx, grounding sx) Qty: 14 2RF sertraline 100 mg tablet 1.5 tab PO QAM Flovent HFA 110 mcg/actuation HFA aerosol inhaler 2 puff inhalation BID medroxyprogesterone 10 mg tablet 1 tab PO DAILY clonazepam 1 mg tablet 0.5 tab PO BID PRN (Reason: anxiety) albuterol sulfate [ProAir HFA] 90 mcg/actuation HFA aerosol inhaler 2 puff inhalation Q4H PRN (Reason: Wheezing) warfarin 5 mg tablet 1 tab PO DAILY@1700 Toujeo Max U-300 SoloStar 300 unit/mL (3 mL) insulin pen 40 unit subcut BEDTIME 30 Days Qty: 6 4RF insulin lispro [Humalog KwikPen Insulin] 100 unit/mL insulin pen See Rx Instructions subcut TIDWMEAL Qty: 15 6RF Rx Instructions: 8 u shake, 12 u small meal, 16 u lreg/lrg meal subcutaneously 3 times per day with meals; metformin 1,000 mg tablet 1,000 mg PO BID 90 Days Qty: 180 1RF (DME) FreeStyle Shelby 2 Sensor Kit See Rx Instructions .ROUTE .MEDSUPPLY Qty: 2 11RF Rx Instructions: As directed every 2 weeks
[2022-04-28] MEDS: predniSONE 20 MG TABLET 60 MG PO (14:58)
[2022-04-28] MEDS: Albuterol/Iprat 2.5/0.5MG 3 ML AMPUL.NEB INHALE (15:18)
[2022-04-28 15:21] VITALS: RESP 18; O2SAT 96
[2022-04-29 12:51] LABS: Adenovirus PCR Not Detected (Not Detect.); Bordetella parapertussis PCR Not Detected (Not Detect.); Bordetella pertussis PCR Not Detected (Not Detect.); Chlamydia pneumoniae PCR Not Detected (Not Detect.); Coronavirus 229E PCR Not Detected (Not Detect.); Coronavirus HKU1 PCR Not Detected (Not Detect.); Coronavirus NL63 PCR Not Detected (Not Detect.); Coronavirus OC43 PCR Not Detected (Not Detect.); Human metapneumovirus PCR Not Detected (Not Detect.); Influenza A PCR Not Detected (Not Detect.); Influenza B PCR Not Detected (Not Detect.); Mycoplasma pneumoniae PCR Not Detected (Not Detect.); Parainfluenza 1 PCR Not Detected (Not Detect.); Parainfluenza 2 PCR Not Detected (Not Detect.); Parainfluenza 3 PCR Not Detected (Not Detect.); Parainfluenza 4 PCR Not Detected (Not Detect.); RSV PCR Not Detected (Not Detect.); Rhino/Enterovirus PCR Not Detected (Not Detect.); SARS-CoV-2 PCR Not Detected (Not Detect.)
== END 2022-04-28 19:50 | disposition home or self-care (01) ==
PROVIDERS: Emergency Provider Emergency Medicine; PCP Internal Medicine
DX: J20.8 Acute bronchitis due to other specified organisms (principal); R06.02 Shortness of breath; Z79.01 Long term (current) use of anticoagulants; Z79.899 Other long term (current) drug therapy; Z87.891 Personal history of nicotine dependence
CPT/HCPCS: 36415; 71046; 80053; 80307; 81001; 83735; 83880; 84484; 85025; 87633; 93005; 94640; 99284; 99285

== ENCOUNTER 2022-05-19 15:16 | Inpatient (IN) | payer OTHER, SELFPAY ==
[2022-05-19] VITALS (7 sets, daily range): BP systolic 128–141; BP diastolic 66–81; PULSE 98–102; RESP 18–20; TEMP 37.1–37.5; O2SAT 84–95; BMI 55.9
--- NOTE | ~2022-05-19 | XR_ITS ---
EXAMINATION: XR CHEST CLINICAL INFORMATION: Shortness of breath COMPARISON: Chest x-ray 04/28/2022 TECHNIQUE: 2 views of the chest were obtained. FINDINGS: Status post median sternotomy. The most cephalad sternal wire is disrupted. Heart size is enlarged. No acute change. No pulmonary vascular congestion. Lungs are normally aerated. No pleural effusion or pneumothorax. XR/XR chest 2V IMPRESSION: No acute abnormality of chest.
--- NOTE | ~2022-05-19 | CT_ITS ---
EXAMINATION: CT CHEST WITHOUT CONTRAST CLINICAL INFORMATION: Shortness of breath COMPARISON: Chest x-ray 05/19/2022. CT angiography of the chest 10/29/2020. TECHNIQUE: Multidetector volumetric CT imaging of the chest was done. Axial MIP volume rendering provided. Sagittal and coronal reformatted images were obtained. This CT examination was performed using dose optimization techniques as appropriate, variously including the following: *Automated exposure control *Adjustment of mA and/or kV according to patient size (this includes techniques or standardized protocols for targeted exams where dose is matched to indication/reason for exam; i.e. extremities or head) *Use of iterative reconstruction technique DLP: 515 mGy-cm FINDINGS: LUNGS: Small focal consolidation with air bronchograms at the posterior right lower lobe. Also focal opacity with air bronchogram of the medial right middle lobe. Left lung is normally aerated MEDIASTINUM: Cardiomegaly. Leigh are prominent bilaterally, right greater than left. Cannot optimally assess the hilar without IV contrast. Compared with the prior CT angiography chest 10/29/2020 there does not appear to be significant change of the leigh since the prior exam. CORONARY ARTERY CALCIFICATION: None visualized on this study. PLEURA: There is no pleural effusion. No pleural mass or thickening. AXILLA: No lymphadenopathy. UPPER ABDOMEN: Calcified gallstones in the gallbladder. No edema around the gallbladder. There appears to be enlarged. No focal abnormality visualized solid organs in the upper abdomen. Degenerative glands are normal. OSSEOUS STRUCTURES: Multilevel degenerative spondylosis spine. Status post median sternotomy. CT/CT chest wo IV con IMPRESSION: 1. Small focal airspace opacities with air bronchograms at the right lower lobe and right middle lobe. 2. Cardiomegaly. 3. Cholelithiasis. 4. Leigh are prominent bilaterally, right greater than left. Cannot optimally assess the leigh without IV contrast. There does not appear to be significant change of the leigh since the prior CT angiography chest 10/29/2020. Fleischner guidelines were followed.
[2022-05-19 15:53] LABS: Appearance Urine Clear; Color Urine Yellow; Glucose Urine UA Negative (Negative); Leukocyte Esterase Urine Negative (Negative); Nitrite Urine Negative (Negative); PH 6.5 (5.0-9.0); Specific Gravity - Urine 1.015 (1.005-1.025); Urine Blood Negative (Negative); Urine Ketones Negative (Negative); Urine Protein Trace mg/dL (Neg-Trace)
[2022-05-19 15:55] LABS: Bacteria Urine Trace (None Seen); Hyaline Casts Urine 0-2 /LPF (0-2); Squamous Epithelial Cell Urine 0-2 /HPF (0-2); WBC Urine 0-5 /HPF (0-5)
[2022-05-19 16:09] LABS: COVID-19 Test Negative (Negative)
[2022-05-19 16:16] LABS: IDNOW Serial# 08D9AD1C; Influenza A Negative (Negative); Influenza B2 Negative (Negative)
--- NOTE | 2022-05-19 16:37 | ED_ITS ---
HPI - SOB/Dyspnea General Chief Complaint: Dyspnea Stated Complaint: SOB, cough, fever (101) per EMS Time Seen by Provider: 05/19/22 16:17 Source: patient Mode of arrival: EMS History of Present Illness HPI Narrative: 47-year-old female with history of heart failure, asthma who comes in with complaints of worsening shortness of breath and cough without lower extremity edema but reports a cough and states that her updrafts and inhalers are not working. She reports subjective fevers but denies any chills or GI/ symptoms. She states her sugars have been within normal limits and that she wears oxygen at baseline. She reports taking all of her medication as directed. Related Data Home Medications Medication Instructions Recorded Confirmed dulaglutide 4.5 mg/0.5 mL 4.5 mg subcut FR 03/24/21 09/22/21 subcutaneous pen injector (Trulicity) furosemide 20 mg tablet 1 tab PO DAILY 05/26/21 09/22/21 levothyroxine 75 mcg tablet 1 tab PO DAILY 05/26/21 09/22/21 lisinopril 5 mg tablet 1 tab PO DAILY 05/26/21 09/22/21 loratadine 10 mg tablet 1 tab PO DAILY 05/26/21 09/22/21 metoprolol succinate 50 mg 1 tab PO DAILY 05/26/21 09/22/21 tablet,extended release 24 hr omeprazole 20 mg capsule,delayed 1 cap PO DAILY 05/26/21 09/22/21 release trazodone 50 mg tablet 1 tab PO BEDTIME 05/26/21 09/22/21 albuterol sulfate 90 mcg/actuation 2 puff inhalation Q4H PRN Wheezing 07/14/21 09/22/21 aerosol inhaler (ProAir HFA) clonazepam 1 mg tablet 0.5 tab PO BID PRN anxiety 07/14/21 09/22/21 medroxyprogesterone 10 mg tablet 1 tab PO DAILY 07/14/21 09/22/21 warfarin 5 mg tablet 1 tab PO DAILY@1700 07/14/21 09/22/21 fluticasone propionate 110 2 puff inhalation BID 07/22/21 09/22/21 mcg/actuation HFA aerosol inhaler (Flovent HFA) sertraline 100 mg tablet 1.5 tab PO QAM 07/22/21 09/22/21 Previous Rx's Medication Instructions Recorded albuterol sulfate 2.5 mg/3 mL 2.5 mg (3 mL) inhalation QID PRN 11/17/20 (0.083 %) solution for nebulization Allergic Reaction #3 mL lamotrigine 25 mg tablet 25 mg PO BEDTIME #15 tabs 06/05/21 risperidone 0.5 mg tablet 0.5 mg PO BID PRN PTSD sx, 06/05/21 grounding sx #14 tabs flash glucose sensor (FreeStyle #2 ea 06/23/21 Shelby 2 Sensor kit) flash glucose scanning reader #1 ea 07/22/21 (FreeStyle [place] 2 [place]) pen needle, diabetic 32 gauge x #100 ea 09/04/21 (BD Ultra-Fine Leslie Pen Needle) insulin glargine U-300 conc 300 40 unit (0.1333 mL) subcut BEDTIME 09/22/21 unit/mL (3 mL) subcutaneous pen 30 days #6 mL (Toujeo Max U-300 SoloStar) insulin lispro 100 unit/mL See Rx Instructions subcut 09/22/21 subcutaneous pen (Humalog KwikPen TIDWMEAL #15 mL (U-100) Insulin) metformin 1,000 mg tablet 1,000 mg PO BID 90 days #180 tabs 09/22/21 atorvastatin 40 mg tablet 40 mg PO DAILY #30 tabs 10/26/21 dapagliflozin 5 mg tablet (Farxiga) 5 mg PO DAILY #30 tabs 01/05/22 prednisone 20 mg tablet 40 mg PO DAILY #10 tabs 04/28/22 Allergies Allergy/AdvReac Type Severity Reaction Status Date / Time Penicillins [PENICILLINS] Allergy Intermediate HIVES Verified 09/22/21 14:56 egg [Egg] Allergy Mild SWELLING Verified 09/22/21 14:56 aspirin Allergy Unknown Unknown Verified 09/22/21 14:56 bee pollen [BEE STINGS] Allergy Unknown UNKNOWN Verified 09/22/21 14:56 lactose [LACTOSE] Allergy Unknown UNKNOWN Verified 09/22/21 14:56 latex [LATEX] Allergy Unknown HIVES Verified 09/22/21 14:56 oxycodone Allergy Unknown Unknown Verified 09/22/21 14:56 peanut [PEANUT] Allergy Unknown UNKNOWN Verified 09/22/21 14:56 penicillin V Allergy Unknown Unknown Verified 09/22/21 14:56 kiwi Allergy Anaphylaxis Verified 09/22/21 14:56 eggs,bees,latex,peanuts Allergy Unknown Unknown Uncoded 09/22/21 14:56 medical tape Allergy Unknown Unknown Uncoded 09/22/21 14:56 TAPE,PLASTIC Allergy Unknown RASH Uncoded 09/22/21 14:56 Review of Systems Review of Systems: Pertinent positives and negatives as stated in HPI [facility] Past Medical History Source: nursing notes reviewed Medical History Acute hyperglycemia Anxiety Asthma BMI 50.0-59.9, adult Cardiomyopathy CHF (congestive heart failure) Depression Diabetes mellitus, type 2 Diabetes type 2, uncontrolled DVT (deep vein thrombosis) in Essential hypertension Gallstones Hyperlipidemia LDL goal <70 Hypertension Hypothyroidism Irritable bowel Mood disorder Obesity due to excess calories ROGERIO (obstructive sleep apnea) Pancreatitis Proteinuria PTSD (post-traumatic stress disorder) PTSD (post-traumatic stress disorder) Pulmonary embolism Recurrent major depression Surgical History History of dental surgery History of open heart surgery Hx of hernia repair Hx of removal of cyst Family History Family History Paternal Grandmother Diabetes Social History Social History Household Members: Unknown / Unable to assess Housing: Apartment Housing Other:: Has [employer] twice a day. Do you presently have visiting nurse or other home services: Yes Unable to assess alcohol history related to: Refusing to respond Alcohol intake: never Patient Tobacco Use Status: Former Tobacco user Tobacco use type: Cigarette e-Cigarette/Vaping Use: Never Used Second Hand Smoke Exposure: Yes Substance Use Type: Marijuana Advance Directives: No Advance Directives Information Provided: No service: No Sexual orientation: Lesbian/Good/Homosexual Physical Exam Vital Signs: Vital Signs: Last Vital Signs Temp 99.5 F 05/19/22 21:55 Pulse 100 05/19/22 21:55 Resp 19 05/19/22 21:55 BP 141/77 H 05/19/22 21:55 Pulse Ox 84 L 05/19/22 22:17 O2 Del Method 05/19/22 22:17 O2 Flow Rate 3 05/19/22 22:17 Oxygen Flow Rate 2 05/19/22 15:30 BMI result Body Mass Index 55.9 VITAL SIGNS: Reviewed. GENERAL: Elevated BMI, Well developed, well nourished, in no acute distress. HEAD: Normocephalic/atraumatic EYES: PERRLA, EOMI EARS: Ext canals without abnormality, TMs non-bulging and non-erythematous NOSE: Nares patent bilateral OROPHARYNX: no oral lesions noted, posterior pharynx clear and non-erythematous without noted tonsillar enlargement/erythema/exudates NECK: Supple, no adenopathy LUNGS: Good inspiratory effort with noted rales, right greater than left, mild tachypnea without retractions SpO2<94> on 2 L nasal cannula CARDIOVASCULAR: Regular rate and rhythm without noted murmurs, no JVD or lower extremity edema. ABDOMEN: Soft, non-tender, non-distended with bowel sounds. MUSCULOSKELETAL: No tenderness, deformities, or effusions noted on gross inspection. EXTREMITIES: No cyanosis, clubbing or edema. SKIN: Inspection of the skin reveals no rashes NEUROLOGIC: Alert and oriented x 4. Strength and sensation to light touch were grossly intact x 4. Medications Administered Discontinued Medications Generic Name Dose Route Start Last Admin Trade Name Freq PRN Reason Stop Dose Admin Albuterol Sulfate 5 mg 05/19/22 18:35 05/19/22 18:49 Albuterol Sulfate (0.083%) 2.5 Mg/3 Ml Vial.Neb INHALE 05/19/22 18:36 5 mg ONCE ONE Administration Medical Decision Making Medical Decision Making MDM Narrative: 47-year-old female with multiple medical comorbidities, suspect more but mild CHF exacerbation as opposed to an asthma presentation. Although patient is oxygenating well on her baseline nasal cannula at this time EMS reported that she was in the 80s. On review of her documentation she has a history of diastolic failure which likely explains the lack lower extremity edema but there were noted rales on clinical exam. 181: I reviewed all investigations and objectively I do not see evidence a CHF exacerbation, patient does not appear to be in an acute asthma exacerbation, she is oxygenating well on baseline oxygen while at rest, afebrile, however, on clinical exam there is suggestion of a mild CHF exacerbation. I discuss the chest x-ray findings with the radiologist who did not feel that there was evidence pneumonia. Patient underwent an ambulation test and her oxygenation on returning to the bed remains at 84%. Will proceed with D-dimer, albuterol treatment, and IV p lacement. 2150: At this time I suspect admission given CT of the chest demonstrates small focal airspace opacities with air bronchograms at the right lower lobe and right middle lobe. Patient received an albuterol treatment and D-dimer is negative. Will attempt another walk test and if patient is unable to maintain O2 sat she will be admitted. 2227: Patient again dipped down to 84%, remains dyspneic and little evidence to suggest asthma. I discussed the case with the inpatient hospitalist who accepts admission. Differential Diagnosis Differential Diagnoses: The differential diagnosis associated with the presentation includes Please see the discussion above Consult Healthcare Provider Management of the patient was discussed with: Hospitalist Lab Data MDM Lab Attestation statement: I reviewed the patient's lab results. Please see the discussion above 05/19/22 16:56 05/19/22 16:56 Labs: Lab Results 05/19/22 05/19/22 05/19/22 Range/Units 15:41 15:41 15:41 WBC (4.8-10.8) X10*3/uL RBC (4.20-5.50) X10*6/uL Hgb (12.0-16.0) g/dl Hct (37.0-47.0) % MCV (80.0-98.0) fL MCH (27.0-33.0) pg MCHC (31.0-35.0) g/dl RDW (11.0-16.0) % Plt Count (160-400) X10*3/uL MPV (9.4-12.3) fL Immature Gran % (Auto) (0.0-0.4) % Neut % (Auto) (45-73) % Lymph % (Auto) (20-40) % Sioux % (Auto) (2-11) % Eos % (Auto) (0-4) % Baso % (Auto) (0-2) % Lymph # (Auto) (1.2-4.9) X10*3/uL [place] # (Auto) (0.1-1.2) X10*3/uL Eos # (Auto) (0.0-0.4) X10*3/uL Baso # (Auto) (0.0-0.2) X10*3/uL Abs Immat Gran (auto) (0.00-0.03) X10*3/uL Absolute Neuts (auto) (2.0-8.3) x10*3/uL Absolute Nucleated RBC (0.0-0.012) X10*3/uL Nucleated RBC % (auto) (0.0-0.2) /100WBC D-Dimer High Sensitivty NG/ML Sodium (135-145) mmol/L Potassium (3.3-5.1) mmol/L Chloride (96-108) mmol/L Carbon Dioxide (22-29) mmol/L Anion Gap (12-20) BUN (9-16) mg/dL Creatinine (0.5-1.4) mg/dL Estim Creat Clear Calc Estimated GFR POC Glucose (60-115) mg/dL Random Glucose (60-115) mg/dL Calcium (8.4-10.2) mg/dL Total Bilirubin (0.0-1.0) mg/dL AST (5-31) U/L ALT (0-31) U/L Alkaline Phosphatase (39-117) U/L B-Natriuretic Peptide (<100) pg/mL Total Protein (6.5-8.0) g/dL Albumin (3.5-5.0) g/dL Urine Color Yellow Urine Appearance Clear Urine pH 6.5 (5.0-9.0) Ur Specific Cordell 1.015 (1.005-1.025) Urine Protein Trace (Neg-Trace) mg/dL Urine Glucose (UA) Negative (Negative) mg/dL Urine Ketones Negative (Negative) mg/dL Urine Blood Negative (Negative) Urine Nitrite Negative (Negative) Ur Leukocyte Esterase Negative (Negative) Urine RBC 3-5 H (0-2) /HPF Urine WBC 0-5 (0-5) /HPF Ur Squamous Epith Cells 0-2 (0-2) /HPF Urine Bacteria Trace (None Seen) Hyaline Casts 0-2 (0-2) /LPF Urine Test (NEGATIVE) COVID-19 ([facility]) Negative (Negative) COVID-19 Clin Com See Note Influenza Type A () Negative (Negative) Influenza Type B () Negative (Negative) Influenza A & B Note See Note 05/19/22 05/19/22 05/19/22 Range/Units 15:41 16:56 16:56 WBC 5.8 (4.8-10.8) X10*3/uL RBC 4.71 (4.20-5.50) X10*6/uL Hgb 14.0 (12.0-16.0) g/dl Hct 43.4 (37.0-47.0) % MCV 92.1 (80.0-98.0) fL MCH 29.7 (27.0-33.0) pg MCHC 32.3 (31.0-35.0) g/dl RDW 17.2 H (11.0-16.0) % Plt Count 235 (160-400) X10*3/uL MPV 10.7 (9.4-12.3) fL Immature Gran % (Auto) 0.2 (0.0-0.4) % Neut % (Auto) 71.2 (45-73) % Lymph % (Auto) 16.6 L (20-40) % Sioux % (Auto) 10.6 (2-11) % Eos % (Auto) 0.5 (0-4) % Baso % (Auto) 0.9 (0-2) % Lymph # (Auto) 1.0 L (1.2-4.9) X10*3/uL Sioux # (Auto) 0.6 (0.1-1.2) X10*3/uL Eos # (Auto) 0.0 (0.0-0.4) X10*3/uL Baso # (Auto) 0.1 (0.0-0.2) X10*3/uL Abs Immat Gran (auto) 0.01 (0.00-0.03) X10*3/uL Absolute Neuts (auto) 4.2 (2.0-8.3) x10*3/uL Absolute Nucleated RBC 0.000 (0.0-0.012) X10*3/uL Nucleated RBC % (auto) 0.0 (0.0-0.2) /100WBC D-Dimer High Sensitivty NG/ML Sodium 143 (135-145) mmol/L Potassium 4.0 (3.3-5.1) mmol/L Chloride 106 (96-108) mmol/L Carbon Dioxide 29 (22-29) mmol/L Anion Gap 12 (12-20) BUN 6 L (9-16) mg/dL Creatinine 0.90 (0.5-1.4) mg/dL Estim Creat Clear Calc 122.7 Estimated GFR > 60 POC Glucose (60-115) mg/dL Random Glucose 96 (60-115) mg/dL Calcium 8.7 D (8.4-10.2) mg/dL Total Bilirubin 1.0 (0.0-1.0) mg/dL AST 17 (5-31) U/L ALT 18 (0-31) U/L Alkaline Phosphatase 72 (39-117) U/L B-Natriuretic Peptide (<100) pg/mL Total Protein 6.8 (6.5-8.0) g/dL Albumin 3.8 (3.5-5.0) g/dL Urine Color Urine Appearance Urine pH (5.0-9.0) Ur Specific Cordell (1.005-1.025) Urine Protein (Neg-Trace) mg/dL Urine Glucose (UA) (Negative) mg/dL Urine Ketones (Negative) mg/dL Urine Blood (Negative) Urine Nitrite (Negative) Ur Leukocyte Esterase (Negative) Urine RBC (0-2) /HPF Urine WBC (0-5) /HPF Ur Squamous Epith Cells (0-2) /HPF Urine Bacteria (None Seen) Hyaline Casts (0-2) /LPF Urine Test NEGATIVE (NEGATIVE) COVID-19 ([facility]) (Negative) COVID-19 Clin Com Influenza Type A () (Negative) Influenza Type B () (Negative) Influenza A & B Note 05/19/22 05/19/22 05/19/22 Range/Units 16:56 19:36 21:27 WBC (4.8-10.8) X10*3/uL RBC (4.20-5.50) X10*6/uL Hgb (12.0-16.0) g/dl Hct (37.0-47.0) % MCV (80.0-98.0) fL MCH (27.0-33.0) pg MCHC (31.0-35.0) g/dl RDW (11.0-16.0) % Plt Count (160-400) X10*3/uL MPV (9.4-12.3) fL Immature Gran % (Auto) (0.0-0.4) % Neut % (Auto) (45-73) % Lymph % (Auto) (20-40) % [place] % (Auto) (2-11) % Eos % (Auto) (0-4) % Baso % (Auto) (0-2) % Lymph # (Auto) (1.2-4.9) X10*3/uL [place] # (Auto) (0.1-1.2) X10*3/uL Eos # (Auto) (0.0-0.4) X10*3/uL Baso # (Auto) (0.0-0.2) X10*3/uL Abs Immat Gran (auto) (0.00-0.03) X10*3/uL Absolute Neuts (auto) (2.0-8.3) x10*3/uL Absolute Nucleated RBC (0.0-0.012) X10*3/uL Nucleated RBC % (auto) (0.0-0.2) /100WBC D-Dimer High Sensitivty < 150 NG/ML Sodium (135-145) mmol/L Potassium (3.3-5.1) mmol/L Chloride (96-108) mmol/L Carbon Dioxide (22-29) mmol/L Anion Gap (12-20) BUN (9-16) mg/dL Creatinine (0.5-1.4) mg/dL Estim Creat Clear Calc Estimated GFR POC Glucose 67 (60-115) mg/dL Random Glucose (60-115) mg/dL Calcium (8.4-10.2) mg/dL Total Bilirubin (0.0-1.0) mg/dL AST (5-31) U/L ALT (0-31) U/L Alkaline Phosphatase (39-117) U/L B-Natriuretic Peptide 70 (<100) pg/mL Total Protein (6.5-8.0) g/dL Albumin (3.5-5.0) g/dL Urine Color Urine Appearance Urine pH (5.0-9.0) Ur Specific Cordell (1.005-1.025) Urine Protein (Neg-Trace) mg/dL Urine Glucose (UA) (Negative) mg/dL Urine Ketones (Negative) mg/dL Urine Blood (Negative) Urine Nitrite (Negative) Ur Leukocyte Esterase (Negative) Urine RBC (0-2) /HPF Urine WBC (0-5) /HPF Ur Squamous Epith Cells (0-2) /HPF Urine Bacteria (None Seen) Hyaline Casts (0-2) /LPF Urine Test (NEGATIVE) COVID-19 ([facility]) (Negative) COVID-19 Clin Com Influenza Type A () (Negative) Influenza Type B () (Negative) Influenza A & B Note 05/19/22 Range/Units 22:04 WBC (4.8-10.8) X10*3/uL RBC (4.20-5.50) X10*6/uL Hgb (12.0-16.0) g/dl Hct (37.0-47.0) % MCV (80.0-98.0) fL MCH (27.0-33.0) pg MCHC (31.0-35.0) g/dl RDW (11.0-16.0) % Plt Count (160-400) X10*3/uL MPV (9.4-12.3) fL Immature Gran % (Auto) (0.0-0.4) % Neut % (Auto) (45-73) % Lymph % (Auto) (20-40) % [place] % (Auto) (2-11) % Eos % (Auto) (0-4) % Baso % (Auto) (0-2) % Lymph # (Auto) (1.2-4.9) X10*3/uL [place] # (Auto) (0.1-1.2) X10*3/uL Eos # (Auto) (0.0-0.4) X10*3/uL Baso # (Auto) (0.0-0.2) X10*3/uL Abs Immat Gran (auto) (0.00-0.03) X10*3/uL Absolute Neuts (auto) (2.0-8.3) x10*3/uL Absolute Nucleated RBC (0.0-0.012) X10*3/uL Nucleated RBC % (auto) (0.0-0.2) /100WBC D-Dimer High Sensitivty NG/ML Sodium (135-145) mmol/L Potassium (3.3-5.1) mmol/L Chloride (96-108) mmol/L Carbon Dioxide (22-29) mmol/L Anion Gap (12-20) BUN (9-16) mg/dL Creatinine (0.5-1.4) mg/dL Estim Creat Clear Calc Estimated GFR POC Glucose 98 (60-115) mg/dL Random Glucose (60-115) mg/dL Calcium (8.4-10.2) mg/dL Total Bilirubin (0.0-1.0) mg/dL AST (5-31) U/L ALT (0-31) U/L Alkaline Phosphatase (39-117) U/L B-Natriuretic Peptide (<100) pg/mL Total Protein (6.5-8.0) g/dL Albumin (3.5-5.0) g/dL Urine Color Urine Appearance Urine pH (5.0-9.0) Ur Specific Cordell (1.005-1.025) Urine Protein (Neg-Trace) mg/dL Urine Glucose (UA) (Negative) mg/dL Urine Ketones (Negative) mg/dL Urine Blood (Negative) Urine Nitrite (Negative) Ur Leukocyte Esterase (Negative) Urine RBC (0-2) /HPF Urine WBC (0-5) /HPF Ur Squamous Epith Cells (0-2) /HPF Urine Bacteria (None Seen) Hyaline Casts (0-2) /LPF Urine Test (NEGATIVE) COVID-19 ([facility]) (Negative) COVID-19 Clin Com Influenza Type A () (Negative) Influenza Type B () (Negative) Influenza A & B Note Independent Interpretation I performed an independent interpretation of an: EKG Interpretation: Normal sinus rhythm, HR-96, no STEMI, ID/QRS/QTC is within normal limits. Radiology Impression Radiologist Impression: My interpretation is in agreement with radiology's impression of the imaging study. External Record Review External record reviewed: Prior outpatient labs and Prior outpatient radiology Chronic Conditions Patient?s care impacted by: Diabetes, Hypertension and Other CHF, asthma Critical Care Time Critical Care Time Critical Care Time: Yes Total Critical Care Time: 30 Attestation: I personally attest to this time spent taking care of the patient. Discharge Plan Discharge Clinical Impression: Pneumonia, CHF (congestive heart failure) Patient Disposition: Admitted As Inpatient Prescriptions: No Action (DME) FreeStyle [place] 2 [place] Misc See Rx Instructions .ROUTE .MEDSUPPLY Qty: 1 0RF Rx Instructions: As directed (DME) pen needle, diabetic [BD Ultra-Fine Leslie Pen Needle] 32 gauge x 5/32 needle See Rx Instructions .ROUTE .MEDSUPPLY Qty: 100 11RF Rx Instructions: As directed three times a day atorvastatin 40 mg tablet 40 mg PO DAILY Qty: 30 6RF Farxiga 5 mg tablet 5 mg PO DAILY Qty: 30 0RF albuterol sulfate 2.5 mg /3 mL (0.083 %) Solution For Nebulization 2.5 mg inhalation QID PRN (Reason: Allergic Reaction) Qty: 3 0RF Trulicity 4.5 mg/0.5 mL pen injector 4.5 mg subcut FR furosemide 20 mg tablet 1 tab PO DAILY lisinopril 5 mg tablet 1 tab PO DAILY levothyroxine 75 mcg tablet 1 tab PO DAILY loratadine 10 mg tablet 1 tab PO DAILY metoprolol succinate 50 mg tablet extended release 24 hr 1 tab PO DAILY omeprazole 20 mg capsule,delayed release(DR/EC) 1 cap PO DAILY trazodone 50 mg tablet 1 tab PO BEDTIME lamotrigine 25 mg Tablet 25 mg PO BEDTIME Qty: 15 1RF risperidone 0.5 mg Tablet 0.5 mg PO BID PRN (Reason: PTSD sx, grounding sx) Qty: 14 2RF sertraline 100 mg tablet 1.5 tab PO QAM Flovent HFA 110 mcg/actuation HFA aerosol inhaler 2 puff inhalation BID prednisone 20 mg tablet 40 mg PO DAILY Qty: 10 0RF medroxyprogesterone 10 mg tablet 1 tab PO DAILY clonazepam 1 mg tablet 0.5 tab PO BID PRN (Reason: anxiety) albuterol sulfate [ProAir HFA] 90 mcg/actuation HFA aerosol inhaler 2 puff inhalation Q4H PRN (Reason: Wheezing) warfarin 5 mg tablet 1 tab PO DAILY@1700 Toujeo Max U-300 SoloStar 300 unit/mL (3 mL) insulin pen 40 unit subcut BEDTIME 30 Days Qty: 6 4RF insulin lispro [Humalog KwikPen Insulin] 100 unit/mL insulin pen See Rx Instructions subcut TIDWMEAL Qty: 15 6RF Rx Instructions: 8 u shake, 12 u small meal, 16 u lreg/lrg meal subcutaneously 3 times per day with meals; metformin 1,000 mg tablet 1,000 mg PO BID 90 Days Qty: 180 1RF (DME) FreeStyle Shelby 2 Sensor Kit See Rx Instructions .ROUTE .MEDSUPPLY Qty: 2 11RF Rx Instructions: As directed every 2 weeks
--- NOTE | 2022-05-19 16:42 | ECG_ITS ---
Test Reason : shortness of breath Blood Pressure : / mmHG Vent. Rate : 096 BPM Atrial Rate : 096 BPM P-R Int : 170 ms QRS Dur : 078 ms QT Int : 372 ms P-R-T Axes : 056 109 091 degrees QTc Int : 469 ms Normal sinus rhythm Rightward axis Borderline ECG When compared with ECG of 28-APR-2022 14:17, No significant change was found Referred By: Johana Davila Electronically Signed By:TATE GEORGE
[2022-05-19 17:06] LABS: MANUAL DIFF FLAG NO
[2022-05-19 17:29] LABS: Basophils Absolute Auto 0.1 X10*3/uL (0.0-0.2); Basophils Percent Auto 0.9 % (0-2); Eosinophils Percent Auto 0.5 % (0-4); Hematocrit 43.4 % (37.0-47.0); Imm Gran Abs Auto 0.01 X10*3/uL (0.00-0.03); Imm Gran Pct Auto 0.2 % (0.0-0.4); Lymphocytes Percent Auto 16.6 % (20-40); Mean Corpuscular HGB Conc 32.3 g/dl (31.0-35.0); Mean Corpuscular Hemoglobin 29.7 pg (27.0-33.0); Mean Corpuscular Volume 92.1 fL (80.0-98.0); Mean Platelet Volume 10.7 fL (9.4-12.3); Monocytes Absolute Auto 0.6 X10*3/uL (0.1-1.2); Monocytes Percent Auto 10.6 % (2-11); Neutrophils Absolute Auto 4.2 x10*3/uL (2.0-8.3); Neutrophils Percent Auto 71.2 % (45-73); Platelet Count 235 X10*3/uL (160-400); Red Blood Count 4.71 X10*6/uL (4.20-5.50); Red Cell Distribution Width 17.2 % (11.0-16.0); White Blood Count 5.8 X10*3/uL (4.8-10.8)
[2022-05-19 17:36] LABS: Alanine Aminotransferase 18 U/L (0-31); Albumin Level 3.8 g/dL (3.5-5.0); Alkaline Phosphatase 72 U/L (39-117); Anion Gap 12 (12-20); Aspartate Amino Transferase 17 U/L (5-31); Blood Urea Nitrogen 6 mg/dL (9-16); Calcium 8.7 mg/dL (8.4-10.2); Carbon Dioxide 29 mmol/L (22-29); Chloride 106 mmol/L (96-108); Creatinine Clr Calc Pharmacy 122.7; Estimated Glomerular Filt Rate > 60; Glucose Random 96 mg/dL (60-115); Sodium 143 mmol/L (135-145); Total Protein 6.8 g/dL (6.5-8.0)
[2022-05-19 17:39] LABS: B Type Natriuretic Peptide 70 pg/mL (<100)
[2022-05-19 17:51] LABS: UPreg QC Valid YES; Urine Pregnancy NEGATIVE (NEGATIVE)
[2022-05-19] MEDS: Albuterol Sulfate (0.083%) 2.5 MG/3 ML VIAL.NEB 5 MG INHALE (18:49)
--- NOTE | 2022-05-19 19:00 | PC.NURSE ---
Pt ambulated with 2L was found to drop down to 84% on 2L and tachypneic. Respiratory at bedside administering breathing treatment.
[2022-05-19 19:51] LABS: D Dimer High Sensitivity < 150 NG/ML
[2022-05-19 21:31] LABS: Glucose, Whole Blood 67 mg/dL (60-115)
[2022-05-19 22:08] LABS: Glucose, Whole Blood 98 mg/dL (60-115)
--- NOTE | 2022-05-19 22:20 | PC.NURSE ---
pt oob with standby assist, pt spo2 84% on room air
[2022-05-19] MEDS: Furosemide 40 MG/4 ML VIAL IVPUSH (22:47)
[2022-05-19] MEDS: cefEPime HCl 1 GM in 0.9 % Sodium Chloride 50 ML IV (22:59)
[2022-05-19 23:05] LABS: Lactic Acid 1.5 mmol/L (0.5-2.0)
--- NOTE | 2022-05-19 23:39 | PM.IMHP ---
History of Present Illness Date of Service: 05/19/22 Chief Complaint: shortness of breath this is a 47-year-old female with past medical history of diabetes, history of PE on Coumadin, history of ROGERIO, PTSD, hypothyroidism, HTN, hyperlipidemia, obesity, anxiety, asthma, presents to the hospital with complaints of shortness of breath as well as cough and sputum production. Symptoms started 2 days ago. Reports fever, chills, no chest pain, no shortness of breath, no lower extremity edema, no abdominal pain nausea or vomiting, no diarrhea constipation, no urine symptoms. On arrival to the ED patient noted to be hypoxic satting 84% on 2 L of oxygen labs are significant for the wrist seek count of 5.8, BNP of 70, labs otherwise unremarkable COVID-19, influenza, RSV negative Chest CT shows small focal airspace opacities with air bronchogram at the right lower lobe and right middle lobe, patient started on IV antibiotics and will be admitted for further management Review of Systems Review of Systems: Yes all other systems are reviewed and are negative [facility] Medical History Acute hyperglycemia Anxiety Asthma BMI 50.0-59.9, adult Cardiomyopathy CHF (congestive heart failure) Depression Diabetes mellitus, type 2 Diabetes type 2, uncontrolled DVT (deep vein thrombosis) in Essential hypertension Gallstones Hyperlipidemia LDL goal <70 Hypertension Hypothyroidism Irritable bowel Mood disorder Obesity due to excess calories ROGERIO (obstructive sleep apnea) Pancreatitis Proteinuria PTSD (post-traumatic stress disorder) PTSD (post-traumatic stress disorder) Pulmonary embolism Recurrent major depression Family History Paternal Grandmother Diabetes Surgical History History of dental surgery History of open heart surgery Hx of hernia repair Hx of removal of cyst Social History Household Members: Unknown / Unable to assess Housing: Apartment Housing Other:: 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 Do you presently have visiting nurse or other home services: Yes Unable to assess alcohol history related to: Refusing to respond Alcohol intake: never Patient Tobacco Use Status: Former Tobacco user Tobacco use type: Cigarette e-Cigarette/Vaping Use: Never Used Second Hand Smoke Exposure: Yes Substance Use Type: Marijuana Advance Directives: No Advance Directives Information Provided: No service: No Sexual orientation: Lesbian/Good/Homosexual Meds Allergies Allergy/AdvReac Type Severity Reaction Status Date / Time Penicillins [PENICILLINS] Allergy Intermediate HIVES Verified 09/22/21 14:56 egg [Egg] Allergy Mild SWELLING Verified 09/22/21 14:56 aspirin Allergy Unknown Unknown Verified 09/22/21 14:56 bee pollen [BEE STINGS] Allergy Unknown UNKNOWN Verified 09/22/21 14:56 lactose [LACTOSE] Allergy Unknown UNKNOWN Verified 09/22/21 14:56 latex [LATEX] Allergy Unknown HIVES Verified 09/22/21 14:56 oxycodone Allergy Unknown Unknown Verified 09/22/21 14:56 peanut [PEANUT] Allergy Unknown UNKNOWN Verified 09/22/21 14:56 penicillin V Allergy Unknown Unknown Verified 09/22/21 14:56 kiwi Allergy Anaphylaxis Verified 09/22/21 14:56 eggs,bees,latex,peanuts Allergy Unknown Unknown Uncoded 09/22/21 14:56 medical tape Allergy Unknown Unknown Uncoded 09/22/21 14:56 TAPE,PLASTIC Allergy Unknown RASH Uncoded 09/22/21 14:56 Home Medications Medication Instructions Recorded Confirmed Last Taken Type dulaglutide 4.5 mg/0.5 mL 4.5 mg subcut FR 03/24/21 09/22/21 07/10/21 History subcutaneous pen injector (Trulicity) furosemide 20 mg tablet 1 tab PO DAILY 05/26/21 09/22/21 07/14/21 History levothyroxine 75 mcg tablet 1 tab PO DAILY 05/26/21 09/22/21 07/14/21 History lisinopril 5 mg tablet 1 tab PO DAILY 05/26/21 09/22/21 07/13/21 History loratadine 10 mg tablet 1 tab PO DAILY 05/26/21 09/22/21 07/14/21 History metoprolol succinate 50 mg 1 tab PO DAILY 05/26/21 09/22/21 07/14/21 History tablet,extended release 24 hr omeprazole 20 mg capsule,delayed 1 cap PO DAILY 05/26/21 09/22/21 07/14/21 History release trazodone 50 mg tablet 1 tab PO BEDTIME 05/26/21 09/22/21 07/13/21 History albuterol sulfate 90 mcg/actuation 2 puff inhalation Q4H PRN Wheezing 07/14/21 09/22/21 Unknown History aerosol inhaler (ProAir HFA) clonazepam 1 mg tablet 0.5 tab PO BID PRN anxiety 07/14/21 09/22/21 Unknown History medroxyprogesterone 10 mg tablet 1 tab PO DAILY 07/14/21 09/22/21 07/14/21 History warfarin 5 mg tablet 1 tab PO DAILY@1700 07/14/21 09/22/21 07/13/21 History fluticasone propionate 110 2 puff inhalation BID 07/22/21 09/22/21 Unknown History mcg/actuation HFA aerosol inhaler (Flovent HFA) sertraline 100 mg tablet 1.5 tab PO QAM 07/22/21 09/22/21 Unknown History Physical Exam Vital Signs and Narrative: Vital Signs: Last Vital Signs Temp 99.5 F 05/19/22 21:55 Pulse 100 05/19/22 21:55 Resp 19 05/19/22 21:55 BP 141/77 H 05/19/22 21:55 Pulse Ox 84 L 05/19/22 22:17 O2 Del Method 05/19/22 22:17 O2 Flow Rate 3 05/19/22 22:17 Oxygen Flow Rate 2 05/19/22 15:30 BMI result Body Mass Index 55.9 Const: General: cooperative and no acute distress Orientation/consciousness: patient oriented x3 Eyes: General: appearance normal, both eyes and all related structures Pupils: Equal, round and reactive pupils present Resp: Other: diminished breath sounds due to obesity Effort & Inspection: normal respiratory effort Cardio: Rate: regular rate Rhythm: regular rhythm GI: Other: obese abdomen, no tenderness, guarding or rebound Palpation (GI): Soft to palpation Auscultation: normal bowel sounds Skin: General skin exam: no rashes or lesions noted Neuro: General: patient oriented x3 Cranial nerves: Yes Equal, round and reactive pupils present Cognition (Neuro): normal cognition Extrem: General: Yes normal to inspection and Yes no pedal edema Results Labs 05/19/22 16:56 05/19/22 16:56 Labs: Laboratory Results - last 24 hr 05/19/22 05/19/22 05/19/22 15:41 15:41 15:41 MCV MCH MCHC RDW Plt Count MPV Immature Gran % (Auto) Neut % (Auto) Lymph % (Auto) [place] % (Auto) Eos % (Auto) Baso % (Auto) Lymph # (Auto) [place] # (Auto) Eos # (Auto) Baso # (Auto) Abs Immat Gran (auto) Absolute Neuts (auto) Absolute Nucleated RBC Nucleated RBC % (auto) D-Dimer High Sensitivty Anion Gap Estim Creat Clear Calc Estimated GFR POC Glucose Random Glucose Lactic Acid Calcium Total Bilirubin AST ALT Alkaline Phosphatase B-Natriuretic Peptide Total Protein Albumin Urine Color Yellow Urine Appearance Clear Urine pH 6.5 Ur Specific [place] 1.015 Urine Protein Trace Urine Glucose (UA) Negative Urine Ketones Negative Urine Blood Negative Urine Nitrite Negative Ur Leukocyte Esterase Negative Urine RBC 3-5 H Urine WBC 0-5 Ur Squamous Epith Cells 0-2 Urine Bacteria Trace Hyaline Casts 0-2 Urine Test COVID-19 (JERICA) Negative COVID-19 Clin Com See Note Influenza Type A () Negative Influenza Type B () Negative Influenza A & B Note See Note 05/19/22 05/19/22 05/19/22 15:41 16:56 16:56 MCV 92.1 MCH 29.7 MCHC 32.3 RDW 17.2 H Plt Count 235 MPV 10.7 Immature Gran % (Auto) 0.2 Neut % (Auto) 71.2 Lymph % (Auto) 16.6 L [place] % (Auto) 10.6 Eos % (Auto) 0.5 Baso % (Auto) 0.9 Lymph # (Auto) 1.0 L [place] # (Auto) 0.6 Eos # (Auto) 0.0 Baso # (Auto) 0.1 Abs Immat Gran (auto) 0.01 Absolute Neuts (auto) 4.2 Absolute Nucleated RBC 0.000 Nucleated RBC % (auto) 0.0 D-Dimer High Sensitivty Anion Gap 12 Estim Creat Clear Calc 122.7 Estimated GFR > 60 POC Glucose Random Glucose 96 Lactic Acid Calcium 8.7 D Total Bilirubin 1.0 AST 17 ALT 18 Alkaline Phosphatase 72 B-Natriuretic Peptide Total Protein 6.8 Albumin 3.8 Urine Color Urine Appearance Urine pH Ur Specific [place] Urine Protein Urine Glucose (UA) Urine Ketones Urine Blood Urine Nitrite Ur Leukocyte Esterase Urine RBC Urine WBC Ur Squamous Epith Cells Urine Bacteria Hyaline Casts Urine Test NEGATIVE COVID-19 (JERICA) COVID-19 Clin Com Influenza Type A () Influenza Type B () Influenza A & B Note 05/19/22 05/19/22 05/19/22 16:56 19:36 21:27 MCV MCH MCHC RDW Plt Count MPV Immature Gran % (Auto) Neut % (Auto) Lymph % (Auto) [place] % (Auto) Eos % (Auto) Baso % (Auto) Lymph # (Auto) [place] # (Auto) Eos # (Auto) Baso # (Auto) Abs Immat Gran (auto) Absolute Neuts (auto) Absolute Nucleated RBC Nucleated RBC % (auto) D-Dimer High Sensitivty < 150 Anion Gap Estim Creat Clear Calc Estimated GFR POC Glucose 67 Random Glucose Lactic Acid Calcium Total Bilirubin AST ALT Alkaline Phosphatase B-Natriuretic Peptide 70 Total Protein Albumin Urine Color Urine Appearance Urine pH Ur Specific [place] Urine Protein Urine Glucose (UA) Urine Ketones Urine Blood Urine Nitrite Ur Leukocyte Esterase Urine RBC Urine WBC Ur Squamous Epith Cells Urine Bacteria Hyaline Casts Urine Test COVID-19 (JERICA) COVID-19 Clin Com Influenza Type A () Influenza Type B () Influenza A & B Note 05/19/22 05/19/22 22:04 22:44 MCV MCH MCHC RDW Plt Count MPV Immature Gran % (Auto) Neut % (Auto) Lymph % (Auto) [place] % (Auto) Eos % (Auto) Baso % (Auto) Lymph # (Auto) [place] # (Auto) Eos # (Auto) Baso # (Auto) Abs Immat Gran (auto) Absolute Neuts (auto) Absolute Nucleated RBC Nucleated RBC % (auto) D-Dimer High Sensitivty Anion Gap Estim Creat Clear Calc Estimated GFR POC Glucose 98 Random Glucose Lactic Acid 1.5 Calcium Total Bilirubin AST ALT Alkaline Phosphatase B-Natriuretic Peptide Total Protein Albumin Urine Color Urine Appearance Urine pH Ur Specific [place] Urine Protein Urine Glucose (UA) Urine Ketones Urine Blood Urine Nitrite Ur Leukocyte Esterase Urine RBC Urine WBC Ur Squamous Epith Cells Urine Bacteria Hyaline Casts Urine Test COVID-19 (JERICA) COVID-19 Clin Com Influenza Type A () Influenza Type B () Influenza A & B Note Imaging Radiologist's Impressions: Impressions Chest X-Ray 05/19/22 17:10 IMPRESSION: No acute abnormality of chest. Chest CT 05/19/22 21:19 IMPRESSION: 1. Small focal airspace opacities with air bronchograms at the right lower lobe and right middle lobe. 2. Cardiomegaly. 3. Cholelithiasis. 4. Leigh are prominent bilaterally, right greater than left. Cannot optimally assess the leigh without IV contrast. There does not appear to be significant change of the leigh since the prior CT angiography chest 10/29/2020. Fleischner guidelines were followed. Assessment and Plan (1) Community acquired pneumonia: Status: Acute (2) Acute respiratory failure with hypoxia: Status: Acute Plan 47-year-old female with past medical history of obesity, CHF, asthma, HTN, diabetes, among others presents to the hospital with complaints of shortness of breath, cough, sputum production found to have acute pneumonia # acute hypoxic respiratory failure - likely secondary to acute pneumonia, no evidence of CHF, PE less likely as patient is already on come - will treat with O2 as required. treat underlying pneumonia as below - monitor respiratory status - wean O2 as tolerated # community-acquired pneumonia - COVID-19, influenza, as well as RSV negative - no leukocytosis, patient is hypoxic - will treat with IV antibiotics - follow cultures # CHF - history of CHF, unable to assess of diastolic versus systolic as no echo on file - not in exacerbation - euvolemic - monitor on status # hypothyroidism - continue levothyroxine # hypertension - stable - continue antihypertensives # diabetes - hold oral antihyperglycemics - low-dose sliding scale insulin - diabetic diet # history of PE/DVT - will obtain PT INR - continue Coumadin if therapeutic # ROGERIO - will order CPAP at bedtime # anxiety, PTSD - continue mood stabilizers DVT prophylaxis: Warfarin given patient's acute hypoxia requiring oxygen, pneumonia requiring IV antibiotics patient will require minimum 2 nights inpatient hospital stay for further management and monitoring Time Spent With Patient Time: Total time managing care of this patient today ____ minutes. Quality Stroke Does the patient have a stroke diagnosis?: No VTE Prior VTE?: No VTE Risk Level:: Medical - moderate - high VTE Device Contraindication: Treatment Not Indicated VTE Drug Contraindication: N/A - Med Ordered
[2022-05-20] VITALS (8 sets, daily range): BP systolic 121–158; BP diastolic 67–93; PULSE 91–97; RESP 17–18; TEMP 36.1–38.2; O2SAT 91–95; BMI 56.0
[2022-05-20] MEDS: Azithromycin 500 MG TABLET PO ×2 (00:49→23:56)
[2022-05-20] MEDS: guaiFENesin DM 100/10/5 ML 5 ML SYRUP PO (00:51)
[2022-05-20 01:05] LABS: INTERNATIONAL NORM RATIO 1.7 (0.9-1.1); Prothrombin Time 20.5 SEC (10.0-13.1)
[2022-05-20] MEDS: cefTRIAXone sodium 1 GM in 0.9 % Sodium Chloride 50 ML IV (05:59)
--- NOTE | 2022-05-20 06:00 | PC.NURSE ---
Pt is tough IV stick and had lost IV access causing antibiotics to be behind until IV could be re-established. This RN called pharmacy and they readjusted the next dose and next vanco trough due. Next vanco trough is due at 0900.
[2022-05-20 06:36] LABS: MANUAL DIFF FLAG NO
[2022-05-20 06:41] LABS: Basophils Absolute Auto 0.1 X10*3/uL (0.0-0.2); Basophils Percent Auto 0.9 % (0-2); Eosinophils Percent Auto 0.4 % (0-4); Hematocrit 42.5 % (37.0-47.0); Hemoglobin 13.6 g/dl (12.0-16.0); Imm Gran Abs Auto 0.01 X10*3/uL (0.00-0.03); Imm Gran Pct Auto 0.2 % (0.0-0.4); Lymphocytes Absolute Auto 0.8 X10*3/uL (1.2-4.9); Mean Corpuscular Hemoglobin 29.4 pg (27.0-33.0); Mean Corpuscular Volume 91.8 fL (80.0-98.0); Mean Platelet Volume 10.6 fL (9.4-12.3); Monocytes Absolute Auto 0.9 X10*3/uL (0.1-1.2); Monocytes Percent Auto 15.4 % (2-11); Neutrophils Absolute Auto 3.9 x10*3/uL (2.0-8.3); Neutrophils Percent Auto 69.1 % (45-73); Platelet Count 214 X10*3/uL (160-400); Red Blood Count 4.63 X10*6/uL (4.20-5.50); Red Cell Distribution Width 17.1 % (11.0-16.0); White Blood Count 5.7 X10*3/uL (4.8-10.8)
[2022-05-20 07:49] LABS: Anion Gap 15 (12-20); Blood Urea Nitrogen 7 mg/dL (9-16); Calcium 8.7 mg/dL (8.4-10.2); Carbon Dioxide 27 mmol/L (22-29); Chloride 104 mmol/L (96-108); Estimated Glomerular Filt Rate > 60; Glucose Random 94 mg/dL (60-115); Potassium 3.9 mmol/L (3.3-5.1); Sodium 142 mmol/L (135-145)
[2022-05-20 08:10] LABS: Glucose, Whole Blood 97 mg/dL (60-115)
--- NOTE | 2022-05-20 08:26 | MHC.CM.PN ---
CM met with Patient at bedside. 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 Patient receives a [employer] and [employer] and her home O2 is supplied by [facility]. Home/resume said services is the goal and CM has initiated and will follow for dc planning. Patient has received Covid vax x2 and her PCP is Dr. Maria Guadalupe Severino. Patient's Sister is her HCP.
[2022-05-20] MEDS: 0.9 % Sodium Chloride Flush 3 ML SYRINGE IVFLUSH ×4 (08:32→20:54)
[2022-05-20 09:00] LABS: INTERNATIONAL NORM RATIO 1.5 (0.9-1.1); Prothrombin Time 17.6 SEC (10.0-13.1)
--- NOTE | 2022-05-20 09:15 | PHA.MEDREC ---
Addendum entered by Guadalupe Knox RPh 05/20/22 09:52: Diane confirm warfarin 10 mg MoWeFr and 5 mg the rest. Patient no longer taking lamotrigine. Dr. Patel was informed Original Note: Pharmacy Consult ? Medication Reconciliation Pharmacy has reviewed the medication reconciliation completed by Cora. Patient is reporting she is not taking lamotrigine. Patient could not recall warfarin dose. Tried to contact patient nurse Diane [phone], however her voicemail is full. Will continue to try to her nurse to confirm dose. Guadalupe Knox, PharmD
[2022-05-20] MEDS: Acetaminophen 325 MG TABLET 650 MG PO ×2 (09:40→20:51)
[2022-05-20] MEDS: Omeprazole 20 MG CAPSULE.DR PO (09:40)
[2022-05-20] MEDS: Metoprolol Succinate ER 50 MG TAB.ER.24H PO (09:40)
[2022-05-20] MEDS: Sertraline HCL 50 MG TABLET 150 MG PO (09:41)
[2022-05-20] MEDS: lisinopriL 5 MG TABLET PO (09:41)
[2022-05-20] MEDS: Furosemide 20 MG TABLET PO (09:41)
[2022-05-20] MEDS: Loratadine 10 MG TABLET PO ×2 (09:41→11:45)
[2022-05-20] MEDS: Levothyroxine Sodium 75 MCG TABLET PO (09:41)
[2022-05-20] MEDS: Atorvastatin Calcium 40 MG TABLET PO (09:41)
[2022-05-20] MEDS: clonazePAM 0.5 MG TABLET PO (09:41)
[2022-05-20 11:46] LABS: Glucose, Whole Blood 216 mg/dL (60-115)
[2022-05-20] MEDS: Insulin Lispro 100 UNIT/ML 3 ML VIAL SUBCUT ×3 (11:51→22:21)
[2022-05-20] MEDS: guaiFENesin 100 MG/5 ML LIQUID 10 ML PO ×2 (16:52→20:54)
[2022-05-20 16:55] LABS: Glucose, Whole Blood 196 mg/dL (60-115)
[2022-05-20] MEDS: Warfarin Sodium 5 MG TABLET PO (17:08)
--- NOTE | 2022-05-20 17:08 | P.PNIM_ITS ---
Subjective Subjective Date of Service: 05/20/22 Interval History: shortness of breath Review of Systems Still feels short of breath, toxin small sentences, has dry cough. No fever ,no chills ,no chest pain Physical Exam Vital Signs: Vital Signs: Last Vital Signs Temp 97 F 05/20/22 15:43 Pulse 91 05/20/22 15:43 Resp 17 05/20/22 15:43 BP 128/76 05/20/22 15:43 Pulse Ox 95 05/20/22 15:43 O2 Del Method 05/20/22 15:43 O2 Flow Rate 3 05/20/22 15:43 Oxygen Flow Rate 2 05/19/22 15:30 BMI result Body Mass Index 56.0 Appearance: Alert.? Oriented X3.?sob. cvs: rrr, [id number] , no murmur res: air entery diminshed ,has b/l exp wheezing abd: no rebound or guarding ,nt, bs present. ext pulses present , no cyanosis . neuro: axo3 , nonfocal. Objective Data Active Medications Acetaminophen (Acetaminophen 325 Mg Tablet) 650 mg PO Q6H PRN PRN Reason: Pain, Mild (Pain Scale 1-3) Last Admin: 05/20/22 09:40 Dose: 650 mg Documented By: TADEO Albuterol Sulfate (Albuterol Sulfate (0.083%) 2.5 Mg/3 Ml Vial.Neb) 2.5 mg INHALE QID PRN PRN Reason: Allergic Reaction Albuterol Sulfate (Albuterol Sulfate 90 Mcg 8 Gm Inhaler) 2 puff INHALE Q4H PRN PRN Reason: Wheezing Atorvastatin Calcium (Atorvastatin Calcium 40 Mg Tablet) 40 mg PO DAILY [facility] Last Admin: 05/20/22 09:41 Dose: 40 mg Documented By: TADEO Azithromycin (Azithromycin 500 Mg Tablet) 500 mg PO Q24H [facility] Last Admin: 05/20/22 00:49 Dose: 500 mg Documented By: SOCORRO Clonazepam (Clonazepam 0.5 Mg Tablet) 0.5 mg PO BID PRN PRN Reason: anxiety Last Admin: 05/20/22 09:41 Dose: 0.5 mg Documented By: TADEO Docusate Sodium (Docusate Sodium 100 Mg Capsule) 100 mg PO DAILY PRN PRN Reason: Constipation Empagliflozin (Empagliflozin 10 Mg Tablet) 10 mg PO DAILY [facility] Fluticasone Propionate (Fluticasone Propionate 100 Mcg Blst.W.Dev) 2 puff INHALE RBID [facility] Furosemide (Furosemide 20 Mg Tablet) 20 mg PO DAILY [facility]; Protocol Last Admin: 05/20/22 09:41 Dose: 20 mg Documented By: TADEO Guaifenesin (Guaifenesin 100 Mg/5 Ml Liquid) 10 ml PO Q4H PRN PRN Reason: Cough Last Admin: 05/20/22 16:52 Dose: 10 ml Documented By: TADEO Guaifenesin/Dextromethorphan (Guaifenesin Dm 100/10/5 Ml 5 Ml Syrup) 5 ml PO Q4H PRN PRN Reason: Cough Last Admin: 05/20/22 00:51 Dose: 5 ml Documented By: SOCORRO Ceftriaxone Sodium 1 gm/ (Sodium Chloride) 50 mls @ 100 mls/hr IV Q24H [facility] Last Infusion: 05/20/22 07:04 Dose: 0 mls/hr Documented By: RENE Insulin Glargine (Insulin Glargine,Hum.Rec.Anlog 100 Unit/Ml 10 Ml Vial) 32 unit SUBCUT BEDTIME [facility] Insulin Human Lispro (Insulin Lispro 100 Unit/Ml 3 Ml Vial) 0 unit SUBCUT QIDACHS [facility]; Protocol Last Admin: 05/20/22 17:00 Dose: 2 unit Documented By: TADEO Levothyroxine Sodium (Levothyroxine Sodium 75 Mcg Tablet) 75 mcg PO DAILY@0600 [facility] Last Admin: 05/20/22 09:41 Dose: 75 mcg Documented By: TADEO Lisinopril (Lisinopril 5 Mg Tablet) 5 mg PO DAILY [facility]; Protocol Last Admin: 05/20/22 09:41 Dose: 5 mg Documented By: TADEO Loratadine (Loratadine 10 Mg Tablet) 10 mg PO DAILY [facility] Last Admin: 05/20/22 09:41 Dose: 10 mg Documented By: TADEO Loratadine (Loratadine 10 Mg Tablet) 10 mg PO DAILY [facility] Last Admin: 05/20/22 11:45 Dose: 10 mg Documented By: TADEO Medroxyprogesterone Acetate (Medroxyprogesterone Acetate 5 Mg Tablet) 10 mg PO DAILY [facility] Metformin HCl (Metformin Hcl 1,000 Mg Tablet) 1,000 mg PO BID [facility] Last Admin: 05/20/22 10:09 Dose: Not Given Documented By: TADEO Non-Admin Reason: Physician Held Med Metoprolol Succinate (Metoprolol Succinate Er 50 Mg Tab.Er.24h) 50 mg PO DAILY [facility]; Protocol Last Admin: 05/20/22 09:40 Dose: 50 mg Documented By: TADEO Non-Formulary Medication (Dulaglutide [Trulicity]) 4.5 mg SUBCUT FR [facility] Omeprazole (Omeprazole 20 Mg Capsule.Dr) 20 mg PO DAILY@0630 [facility] Last Admin: 05/20/22 09:40 Dose: 20 mg Documented By: TADEO Ondansetron HCl (Ondansetron Hcl 4 Mg/2 Ml Vial) 4 mg IVPUSH Q8H PRN PRN Reason: Nausea and Vomiting Risperidone (Risperidone 0.5 Mg Tablet) 0.5 mg PO BID PRN PRN Reason: PTSD sx, grounding sx Sertraline HCl (Sertraline Hcl 50 Mg Tablet) 150 mg PO DAILY [facility] Last Admin: 05/20/22 09:41 Dose: 150 mg Documented By: TADEO Sodium Chloride (0.9 % Sodium Chloride Flush 3 Ml Syringe) 3 ml IVFLUSH QSHIFT [facility] Last Admin: 05/20/22 16:52 Dose: 3 ml Documented By: TADEO Trazodone HCl (Trazodone Hcl 50 Mg Tablet) 50 mg PO BEDTIME [facility] Warfarin Sodium (Warfarin Sodium 5 Mg Tablet) 10 mg PO MoWeFr@1800 [facility] Warfarin Sodium (Warfarin Sodium 5 Mg Tablet) 5 mg PO SuTuThFr@1800 [facility] Labs 05/20/22 06:10 05/20/22 06:10 Labs: Laboratory Results - last 24 hr 05/19/22 05/19/22 05/19/22 15:41 16:56 16:56 MCV 92.1 MCH 29.7 MCHC 32.3 RDW 17.2 H Plt Count 235 MPV 10.7 Immature Gran % (Auto) 0.2 Neut % (Auto) 71.2 Lymph % (Auto) 16.6 L Carter % (Auto) 10.6 Eos % (Auto) 0.5 Baso % (Auto) 0.9 Lymph # (Auto) 1.0 L Carter # (Auto) 0.6 Eos # (Auto) 0.0 Baso # (Auto) 0.1 Abs Immat Gran (auto) 0.01 Absolute Neuts (auto) 4.2 Absolute Nucleated RBC 0.000 Nucleated RBC % (auto) 0.0 PT INR D-Dimer High Sensitivty Anion Gap 12 Estim Creat Clear Calc 122.7 Estimated GFR > 60 POC Glucose Random Glucose 96 Lactic Acid Calcium 8.7 D Total Bilirubin 1.0 AST 17 ALT 18 Alkaline Phosphatase 72 B-Natriuretic Peptide Total Protein 6.8 Albumin 3.8 Urine Test NEGATIVE 05/19/22 05/19/22 05/19/22 16:56 19:36 21:27 MCV MCH MCHC RDW Plt Count MPV Immature Gran % (Auto) Neut % (Auto) Lymph % (Auto) Carter % (Auto) Eos % (Auto) Baso % (Auto) Lymph # (Auto) Carter # (Auto) Eos # (Auto) Baso # (Auto) Abs Immat Gran (auto) Absolute Neuts (auto) Absolute Nucleated RBC Nucleated RBC % (auto) PT INR D-Dimer High Sensitivty < 150 Anion Gap Estim Creat Clear Calc Estimated GFR POC Glucose 67 Random Glucose Lactic Acid Calcium Total Bilirubin AST ALT Alkaline Phosphatase B-Natriuretic Peptide 70 Total Protein Albumin Urine Test 05/19/22 05/19/22 05/20/22 22:04 22:44 00:49 MCV MCH MCHC RDW Plt Count MPV Immature Gran % (Auto) Neut % (Auto) Lymph % (Auto) Carter % (Auto) Eos % (Auto) Baso % (Auto) Lymph # (Auto) Carter # (Auto) Eos # (Auto) Baso # (Auto) Abs Immat Gran (auto) Absolute Neuts (auto) Absolute Nucleated RBC Nucleated RBC % (auto) PT 20.5 H INR 1.7 H D-Dimer High Sensitivty Anion Gap Estim Creat Clear Calc Estimated GFR POC Glucose 98 Random Glucose Lactic Acid 1.5 Calcium Total Bilirubin AST ALT Alkaline Phosphatase B-Natriuretic Peptide Total Protein Albumin Urine Test 05/20/22 05/20/22 05/20/22 06:10 06:10 07:50 MCV 91.8 MCH 29.4 MCHC 32.0 RDW 17.1 H Plt Count 214 MPV 10.6 Immature Gran % (Auto) 0.2 Neut % (Auto) 69.1 Lymph % (Auto) 14.0 L Carter % (Auto) 15.4 H Eos % (Auto) 0.4 Baso % (Auto) 0.9 Lymph # (Auto) 0.8 L Carter # (Auto) 0.9 Eos # (Auto) 0.0 Baso # (Auto) 0.1 Abs Immat Gran (auto) 0.01 Absolute Neuts (auto) 3.9 Absolute Nucleated RBC 0.000 Nucleated RBC % (auto) 0.0 PT INR D-Dimer High Sensitivty Anion Gap 15 Estim Creat Clear Calc 127.0 Estimated GFR > 60 POC Glucose 97 Random Glucose 94 Lactic Acid Calcium 8.7 Total Bilirubin AST ALT Alkaline Phosphatase B-Natriuretic Peptide Total Protein Albumin Urine Test 05/20/22 05/20/22 05/20/22 08:21 11:42 16:50 MCV MCH MCHC RDW Plt Count MPV Immature Gran % (Auto) Neut % (Auto) Lymph % (Auto) Carter % (Auto) Eos % (Auto) Baso % (Auto) Lymph # (Auto) Carter # (Auto) Eos # (Auto) Baso # (Auto) Abs Immat Gran (auto) Absolute Neuts (auto) Absolute Nucleated RBC Nucleated RBC % (auto) PT 17.6 H INR 1.5 H D-Dimer High Sensitivty Anion Gap Estim Creat Clear Calc Estimated GFR POC Glucose 216 H 196 H Random Glucose Lactic Acid Calcium Total Bilirubin AST ALT Alkaline Phosphatase B-Natriuretic Peptide Total Protein Albumin Urine Test Assessment and Plan (1) Acute respiratory failure with hypoxia: Status: Acute (2) Community acquired pneumonia: Status: Acute (3) Super obesity: Status: Acute Plan 47-year-old female with past medical history of obesity, CHF, asthma, HTN, diabetes, among others presents to the hospital with complaints of shortness of breath, cough, sputum production found to have acute pneumonia 1.? acute hypoxic respiratory failure -? likely secondary to acute pneumonia, no evidence of CHF, PE less likely as patient is already on come -? will treat with O2 as required.? treat underlying pneumonia as below -? monitor respiratory status -? wean O2 as tolerated 2. community-acquired pneumonia -? COVID-19, influenza, as well as RSV negative -? no leukocytosis, patient is hypoxic -? will treat with IV antibiotics -? follow cultures 3.? CHF -? history of CHF, unable to assess of diastolic versus systolic as no echo on file -? not in exacerbation -?bnp normal, euvolemic -? monitor on status 4.? hypothyroidism -? continue levothyroxine ?5. hypertension -? stable -? continue antihypertensives ?6. diabetes -? hold oral antihyperglycemics continue home insulin regimen and sliding scale insulin -? diabetic diet 7.? history of PE/DVT PT INR subtherapeutic ,missed warfarin yesterday -? continue Coumadin ,added warfarin 2 mg extra. ?8. ROGERIO -? will order CPAP at bedtime 9. anxiety, PTSD -? continue mood stabilizers 10.super obesity: Encouraged to lose weight. ?DVT prophylaxis:? Warfarin inpatient need: acute hypoxia requiring oxygen sec to pneumonia requiring IV antibiotics . Time Spent With Patient Time: Total time managing care of this patient today ____ minutes. Quality Stroke Does the patient have a stroke diagnosis?: No VTE Prior VTE?: No VTE Risk Level:: Medical - moderate - high VTE Device Contraindication: Treatment Not Indicated VTE Drug Contraindication: N/A - Med Ordered
[2022-05-20] MEDS: Warfarin Sodium 2 MG TABLET PO (17:57)
[2022-05-20] MEDS: traZODone HCL 50 MG TABLET PO (20:53)
[2022-05-20 21:18] LABS: Glucose, Whole Blood 180 mg/dL (60-115)
[2022-05-20] MEDS: Fluticasone Propionate 100 MCG BLST.W.DEV 2 PUFF INHALE (21:24)
[2022-05-20] MEDS: Insulin Glargine,Hum.rec.anlog 100 UNIT/ML 10 ML VIAL 32 UNIT SUBCUT (22:22)
[2022-05-21] VITALS (8 sets, daily range): BP systolic 100–130; BP diastolic 54–70; PULSE 70–115; RESP 18–20; TEMP 36.1–37.3; O2SAT 92–99; BMI 53.4
[2022-05-21] MEDS: Levothyroxine Sodium 75 MCG TABLET PO (05:39)
[2022-05-21] MEDS: Omeprazole 20 MG CAPSULE.DR PO (05:39)
[2022-05-21] MEDS: cefTRIAXone sodium 1 GM in 0.9 % Sodium Chloride 50 ML IV (06:39)
[2022-05-21 06:52] LABS: INTERNATIONAL NORM RATIO 1.4 (0.9-1.1); Prothrombin Time 16.2 SEC (10.0-13.1)
[2022-05-21 07:26] LABS: Glucose, Whole Blood 121 mg/dL (60-115)
[2022-05-21] MEDS: Loratadine 10 MG TABLET PO (08:44)
[2022-05-21] MEDS: Sertraline HCL 50 MG TABLET 150 MG PO (08:44)
[2022-05-21] MEDS: Furosemide 20 MG TABLET PO (08:44)
[2022-05-21] MEDS: Atorvastatin Calcium 40 MG TABLET PO (08:45)
[2022-05-21] MEDS: Empagliflozin 10 MG TABLET PO (08:45)
[2022-05-21] MEDS: metFORMIN HCl 1,000 MG TABLET 1000 MG PO ×2 (08:45→19:36)
[2022-05-21] MEDS: Metoprolol Succinate ER 50 MG TAB.ER.24H PO (08:45)
[2022-05-21] MEDS: lisinopriL 5 MG TABLET PO (08:45)
[2022-05-21] MEDS: medroxyPROGESTERone Acetate 5 MG TABLET 10 MG PO (08:45)
[2022-05-21] MEDS: 0.9 % Sodium Chloride Flush 3 ML SYRINGE IVFLUSH ×2 (08:47→17:13)
[2022-05-21] MEDS: Fluticasone Propionate 100 MCG BLST.W.DEV 2 PUFF INHALE ×2 (08:51→20:32)
[2022-05-21] MEDS: Acetaminophen 325 MG TABLET 650 MG PO ×2 (09:14→19:36)
[2022-05-21] MEDS: guaiFENesin 100 MG/5 ML LIQUID 10 ML PO ×2 (09:22→19:35)
--- NOTE | 2022-05-21 10:14 | P.CDIC_ITS ---
CDI Concurrent Query Documentation Clarification: PHYSICIAN'S DOCUMENTATION REQUEST Date of Query: 05/21/22 1015 Patient Name: Anahy Mccann Admit Date: 05/19/22 Dear Doctor, Please review the following and provide your response in the progress notes. Clinical Indicators: Risk Factors/Clinical Indicators/Treatments PMH: Asthma Worsening shortness of breath, dyspnea, hypoxic, ambulation test her oxygenation on return to bed was 84% on 2L O2. D-dimer, Albuterol txt. History of Smoking. Based on the above, please clarify in the Progress Notes further specificity regarding the type and acuity of the asthma: Type: * Mild intermittent - less than 2x/week * Mild persistent - more than 2x/week but not daily * Moderate persistent - daily and may restrict physical activity * Severe persistent - throughout the day with frequent attacks, limiting activities * Exercise induced * Other ? please specify * Unable to determine Acuity: * With acute exacerbation * Without acute exacerbation * Uncomplicated * Unable to determine Use of terms such as suspected, likely, concern for, or probable (associated with a specific diagnosis that is being evaluated, monitored, or treated as if it exists) are acceptable and can be coded in the inpatient setting, when documented at the time of discharge. Thank you, Jackie Ayon [facility],CDIS Extension: [phone] Please use your independent medical judgment in providing your response. THIS QUERY IS PART OF THE PERMANENT MEDICAL RECORD Provider Response: Other Other Diagnosis: asthma -mild intermitternt
--- NOTE | 2022-05-21 10:14 | MHC.CDI.CONC ---
CDI Concurrent Query Documentation Clarification: PHYSICIAN'S DOCUMENTATION REQUEST Date of Query: 05/21/22 1015 Patient Name: Anahy Mccann Admit Date: 05/19/22 Dear Doctor, Please review the following and provide your response in the progress notes. Clinical Indicators: Risk Factors/Clinical Indicators/Treatments PMH: Asthma Worsening shortness of breath, dyspnea, hypoxic, ambulation test her oxygenation on return to bed was 84% on 2L O2. D-dimer, Albuterol txt. History of Smoking. Based on the above, please clarify in the Progress Notes further specificity regarding the type and acuity of the asthma: Type: Mild intermittent - less than 2x/week Mild persistent - more than 2x/week but not daily Moderate persistent - daily and may restrict physical activity Severe persistent - throughout the day with frequent attacks, limiting activities Exercise induced Other ? please specify Unable to determine Acuity: With acute exacerbation Without acute exacerbation Uncomplicated Unable to determine Use of terms such as suspected, likely, concern for, or probable (associated with a specific diagnosis that is being evaluated, monitored, or treated as if it exists) are acceptable and can be coded in the inpatient setting, when documented at the time of discharge. Thank you, Jackie Ayon [facility]IS Extension: [phone] Please use your independent medical judgment in providing your response. THIS QUERY IS PART OF THE PERMANENT MEDICAL RECORD Provider Response: Other Other Diagnosis: asthma -mild intermitternt
[2022-05-21 11:11] LABS: Glucose, Whole Blood 209 mg/dL (60-115)
[2022-05-21] MEDS: Insulin Lispro 100 UNIT/ML 3 ML VIAL SUBCUT ×2 (11:58→21:01)
--- NOTE | 2022-05-21 13:04 | HO.PM.IMPN ---
Subjective Subjective Date of Service: 05/21/22 Interval History: shortness of breath,cough Review of Systems Still feels short of breath with execersion, talks small sentences, has dry cough.? No fever ,no chills ,no chest pain Physical Exam Vital Signs: Vital Signs: Last Vital Signs Temp 97 F 05/21/22 07:12 Pulse 102 H 05/21/22 08:52 Resp 20 05/21/22 08:52 BP 122/70 05/21/22 07:12 Pulse Ox 99 05/21/22 07:12 O2 Del Method 05/21/22 07:12 O2 Flow Rate 3 05/21/22 07:12 Oxygen Flow Rate 2 05/19/22 15:30 BMI result Body Mass Index 53.4 ? Appearance: Alert.? Oriented X3.?sob. cvs: rrr, [id number] , no murmur res: air entery diminshed ,has b/l exp wheezing abd: no rebound or guarding ,nt, bs present. ext pulses present , no cyanosis . neuro: axo3 , nonfocal. Objective Data Active Medications Acetaminophen (Acetaminophen 325 Mg Tablet) 650 mg PO Q6H PRN PRN Reason: Pain, Mild (Pain Scale 1-3) Last Admin: 05/21/22 09:14 Dose: 650 mg Documented By: RICO Albuterol Sulfate (Albuterol Sulfate (0.083%) 2.5 Mg/3 Ml Vial.Neb) 2.5 mg INHALE QID PRN PRN Reason: Allergic Reaction Albuterol Sulfate (Albuterol Sulfate 90 Mcg 8 Gm Inhaler) 2 puff INHALE Q4H PRN PRN Reason: Wheezing Atorvastatin Calcium (Atorvastatin Calcium 40 Mg Tablet) 40 mg PO DAILY [facility] Last Admin: 05/21/22 08:45 Dose: 40 mg Documented By: RICO Azithromycin (Azithromycin 500 Mg Tablet) 500 mg PO Q24H [facility] Last Admin: 05/20/22 23:56 Dose: 500 mg Documented By: GEOVANNA Clonazepam (Clonazepam 0.5 Mg Tablet) 0.5 mg PO BID PRN PRN Reason: anxiety Last Admin: 05/20/22 09:41 Dose: 0.5 mg Documented By: TADEO Docusate Sodium (Docusate Sodium 100 Mg Capsule) 100 mg PO DAILY PRN PRN Reason: Constipation Empagliflozin (Empagliflozin 10 Mg Tablet) 10 mg PO DAILY [facility] Last Admin: 05/21/22 08:45 Dose: 10 mg Documented By: RICO Fluticasone Propionate (Fluticasone Propionate 100 Mcg Blst.W.Dev) 2 puff INHALE RBID [facility] Last Admin: 05/21/22 08:51 Dose: 2 puff Documented By: KEN Furosemide (Furosemide 20 Mg Tablet) 20 mg PO DAILY [facility]; Protocol Last Admin: 05/21/22 08:44 Dose: 20 mg Documented By: RICO Guaifenesin (Guaifenesin 100 Mg/5 Ml Liquid) 10 ml PO Q4H PRN PRN Reason: Cough Last Admin: 05/21/22 09:22 Dose: 10 ml Documented By: RICO Guaifenesin/Dextromethorphan (Guaifenesin Dm 100/10/5 Ml 5 Ml Syrup) 5 ml PO Q4H PRN PRN Reason: Cough Last Admin: 05/20/22 00:51 Dose: 5 ml Documented By: SOCORRO Ceftriaxone Sodium 1 gm/ (Sodium Chloride) 50 mls @ 100 mls/hr IV Q24H [facility] Last Infusion: 05/21/22 08:52 Dose: 0 mls/hr Documented By: RICO Insulin Glargine (Insulin Glargine,Hum.Rec.Anlog 100 Unit/Ml 10 Ml Vial) 32 unit SUBCUT BEDTIME [facility] Last Admin: 05/20/22 22:22 Dose: 32 unit Documented By: GEOVANNA Insulin Human Lispro (Insulin Lispro 100 Unit/Ml 3 Ml Vial) 0 unit SUBCUT QIDACHS [facility]; Protocol Last Admin: 05/21/22 11:58 Dose: 4 unit Documented By: RICO Levothyroxine Sodium (Levothyroxine Sodium 75 Mcg Tablet) 75 mcg PO DAILY@0600 [facility] Last Admin: 05/21/22 05:39 Dose: 75 mcg Documented By: GEOVANNA Lisinopril (Lisinopril 5 Mg Tablet) 5 mg PO DAILY [facility]; Protocol Last Admin: 05/21/22 08:45 Dose: 5 mg Documented By: RICO Loratadine (Loratadine 10 Mg Tablet) 10 mg PO DAILY [facility] Last Admin: 05/21/22 08:44 Dose: 10 mg Documented By: RICO Medroxyprogesterone Acetate (Medroxyprogesterone Acetate 5 Mg Tablet) 10 mg PO DAILY [facility] Last Admin: 05/21/22 08:45 Dose: 10 mg Documented By: RICO Metformin HCl (Metformin Hcl 1,000 Mg Tablet) 1,000 mg PO BID [facility] Last Admin: 05/21/22 08:45 Dose: 1,000 mg Documented By: RICO Metoprolol Succinate (Metoprolol Succinate Er 50 Mg Tab.Er.24h) 50 mg PO DAILY [facility]; Protocol Last Admin: 05/21/22 08:45 Dose: 50 mg Documented By: RICO Non-Formulary Medication (Dulaglutide [Trulicity]) 4.5 mg SUBCUT [facility] Omeprazole (Omeprazole 20 Mg Capsule.Dr) 20 mg PO DAILY@0630 [facility] Last Admin: 05/21/22 05:39 Dose: 20 mg Documented By: GEOVANNA Ondansetron HCl (Ondansetron Hcl 4 Mg/2 Ml Vial) 4 mg IVPUSH Q8H PRN PRN Reason: Nausea and Vomiting Risperidone (Risperidone 0.5 Mg Tablet) 0.5 mg PO BID PRN PRN Reason: PTSD sx, grounding sx Sertraline HCl (Sertraline Hcl 50 Mg Tablet) 150 mg PO DAILY [facility] Last Admin: 05/21/22 08:44 Dose: 150 mg Documented By: RICO Sodium Chloride (0.9 % Sodium Chloride Flush 3 Ml Syringe) 3 ml IVFLUSH QSHIFT [facility] Last Admin: 05/21/22 08:47 Dose: 3 ml Documented By: RICO Trazodone HCl (Trazodone Hcl 50 Mg Tablet) 50 mg PO BEDTIME [facility] Last Admin: 05/20/22 20:53 Dose: 50 mg Documented By: GEOVANNA Warfarin Sodium (Warfarin Sodium 5 Mg Tablet) 10 mg PO MoWeFr@1800 [facility] Warfarin Sodium (Warfarin Sodium 5 Mg Tablet) 5 mg PO SuTuThSa@1800 [facility] Warfarin Sodium (Warfarin Sodium 2 Mg Tablet) 2 mg PO ONCE@1800 [facility] Stop: 05/21/22 18:01 Labs 05/20/22 06:10 05/20/22 06:10 Labs: Laboratory Results - last 24 hr 05/20/22 05/20/22 05/21/22 16:50 21:14 06:10 PT 16.2 H INR 1.4 H POC Glucose 196 H 180 H 05/21/22 05/21/22 07:14 11:05 PT INR POC Glucose 121 H 209 H Microbiology Microbiology Results: Microbiology 05/19/22 22:44 Blood Culture - Preliminary Blood - Venous No growth after 24 hours. Blood Culture - Preliminary No growth after 24 hours. 05/19/22 22:44 Blood Culture - Preliminary Blood - Venous No growth after 24 hours. Assessment and Plan (1) Acute respiratory failure with hypoxia: Status: Acute (2) Community acquired pneumonia: Status: Acute (3) Super obesity: Status: Acute Plan 47-year-old female with past medical history of obesity, CHF, asthma, HTN, diabetes, among others presents to the hospital with complaints of shortness of breath, cough, sputum production found to have acute pneumonia 1.? acute hypoxic respiratory failure -? likely secondary to acute pneumonia, no evidence of CHF, PE less likely as patient is already on come -? will treat with O2 as required.? treat underlying pneumonia as below -? monitor respiratory status -? wean O2 as tolerated 2. community-acquired pneumonia -? COVID-19, influenza, as well as RSV negative -? no leukocytosis, patient is hypoxic -? will treat with IV antibiotics -? follow cultures 3.? CHF -? history of CHF, unable to assess of diastolic versus systolic as no echo on file -? not in exacerbation -?bnp normal, euvolemic -? monitor on status 4.? hypothyroidism -? continue levothyroxine ?5. hypertension -? stable -? continue antihypertensives ?6. diabetes -? hold oral antihyperglycemics continue home insulin regimen and sliding scale insulin -? diabetic diet 7.? history of PE/DVT PT INR subtherapeutic ,missed warfarin yesterday -? continue Coumadin ,added warfarin 2 mg extra. ?8. ROGERIO -? will order CPAP at bedtime 9. anxiety, PTSD -? continue mood stabilizers 10.super obesity: Encouraged to lose weight. 11. Hx of asthma (mild intermittent). stable ,continue home meds. ?DVT prophylaxis:? Warfarin inpatient need: acute hypoxia requiring oxygen sec to pneumonia requiring IV antibiotics . Time Spent With Patient Time: Total time managing care of this patient today ____ minutes. Quality Stroke Does the patient have a stroke diagnosis?: No VTE Prior VTE?: No VTE Risk Level:: Medical - moderate - high VTE Device Contraindication: Treatment Not Indicated VTE Drug Contraindication: N/A - Med Ordered
--- NOTE | 2022-05-21 14:07 | MHC.CM.PN ---
Addendum entered by Huong Short RN 05/21/22 14:14: NO [facility] FOUND IN [place] REFERRAL PLACED TO [facility] TO INQUIRE IF PATIENT IS ACTIVE Original Note: PATIENT STILL SOB WITH EXERTION. NO PLAN FOR DC TODAY. EVENTUAL PLAN: HOME WITH [facility] RESUMPTION AND HOME O2 WITH [facility]
[2022-05-21 17:13] LABS: Glucose, Whole Blood 136 mg/dL (60-115)
[2022-05-21] MEDS: Warfarin Sodium 5 MG TABLET 10 MG PO (18:10)
[2022-05-21] MEDS: Warfarin Sodium 2 MG TABLET PO (18:41)
[2022-05-21] MEDS: traZODone HCL 50 MG TABLET PO (19:36)
[2022-05-21 20:55] LABS: Glucose, Whole Blood 189 mg/dL (60-115)
[2022-05-21] MEDS: Insulin Glargine,Hum.rec.anlog 100 UNIT/ML 10 ML VIAL 32 UNIT SUBCUT (21:02)
[2022-05-21] MEDS: Azithromycin 500 MG TABLET PO (22:28)
[2022-05-22] VITALS (8 sets, daily range): BP systolic 107–132; BP diastolic 57–73; PULSE 72–95; RESP 18–20; TEMP 36.2–36.8; O2SAT 90–96; BMI 53.8
[2022-05-22 05:14] LABS: Glucose, Whole Blood 143 mg/dL (60-115)
[2022-05-22] MEDS: Acetaminophen 325 MG TABLET 650 MG PO ×2 (05:16→13:19)
[2022-05-22] MEDS: cefTRIAXone sodium 1 GM in 0.9 % Sodium Chloride 50 ML IV (05:16)
[2022-05-22] MEDS: Levothyroxine Sodium 75 MCG TABLET PO (05:17)
[2022-05-22] MEDS: Omeprazole 20 MG CAPSULE.DR PO (05:17)
[2022-05-22] MEDS: clonazePAM 0.5 MG TABLET PO (05:34)
[2022-05-22 07:25] LABS: Glucose, Whole Blood 197 mg/dL (60-115)
[2022-05-22] MEDS: Atorvastatin Calcium 40 MG TABLET PO (07:39)
[2022-05-22] MEDS: metFORMIN HCl 1,000 MG TABLET 1000 MG PO ×2 (07:39→21:30)
[2022-05-22] MEDS: Metoprolol Succinate ER 50 MG TAB.ER.24H PO (07:39)
[2022-05-22] MEDS: Furosemide 20 MG TABLET PO (07:40)
[2022-05-22] MEDS: Empagliflozin 10 MG TABLET PO (07:40)
[2022-05-22] MEDS: Sertraline HCL 50 MG TABLET 150 MG PO (07:40)
[2022-05-22] MEDS: medroxyPROGESTERone Acetate 5 MG TABLET 10 MG PO (07:40)
[2022-05-22] MEDS: Insulin Lispro 100 UNIT/ML 3 ML VIAL SUBCUT ×4 (07:41→21:31)
[2022-05-22] MEDS: 0.9 % Sodium Chloride Flush 3 ML SYRINGE IVFLUSH ×2 (07:41→17:33)
[2022-05-22] MEDS: Loratadine 10 MG TABLET PO (07:41)
[2022-05-22] MEDS: lisinopriL 5 MG TABLET PO (07:45)
[2022-05-22 08:08] LABS: INTERNATIONAL NORM RATIO 1.3 (0.9-1.1); Prothrombin Time 15.3 SEC (10.0-13.1)
--- NOTE | 2022-05-22 10:44 | P.PNIM_ITS ---
Subjective Subjective Date of Service: 05/22/22 Interval History: shortness of breath,cough Review of Systems Still feels short of breath with execersion, talks small sentences, has dry cough.? No fever ,no chills ,no chest pain Physical Exam Vital Signs: Vital Signs: Last Vital Signs Temp 98 F 05/22/22 07:09 Pulse 72 05/22/22 07:09 Resp 20 05/22/22 07:09 BP 123/73 05/22/22 07:09 Pulse Ox 92 05/22/22 07:09 O2 Del Method 05/22/22 07:09 O2 Flow Rate 2 05/22/22 07:09 Oxygen Flow Rate 2 05/19/22 15:30 BMI result Body Mass Index 53.8 Appearance: Alert.? Oriented X3.?sob. cvs: rrr, [id number] , no murmur res: air entery diminshed ,has b/l exp wheezing abd: no rebound or guarding ,nt, bs present. ext pulses present , no cyanosis . neuro: axo3 , nonfocal. Objective Data Active Medications Acetaminophen (Acetaminophen 325 Mg Tablet) 650 mg PO Q6H PRN PRN Reason: Pain, Mild (Pain Scale 1-3) Last Admin: 05/22/22 05:16 Dose: 650 mg Documented By: SHARA Albuterol Sulfate (Albuterol Sulfate (0.083%) 2.5 Mg/3 Ml Vial.Neb) 2.5 mg INHALE QID PRN PRN Reason: Allergic Reaction Albuterol Sulfate (Albuterol Sulfate 90 Mcg 8 Gm Inhaler) 2 puff INHALE Q4H PRN PRN Reason: Wheezing Atorvastatin Calcium (Atorvastatin Calcium 40 Mg Tablet) 40 mg PO DAILY [facility] Last Admin: 05/22/22 07:39 Dose: 40 mg Documented By: DEYSI Azithromycin (Azithromycin 500 Mg Tablet) 500 mg PO Q24H [facility] Last Admin: 05/21/22 22:28 Dose: 500 mg Documented By: GIUSEPPE Clonazepam (Clonazepam 0.5 Mg Tablet) 0.5 mg PO BID PRN PRN Reason: anxiety Last Admin: 05/22/22 05:34 Dose: 0.5 mg Documented By: SHARA Docusate Sodium (Docusate Sodium 100 Mg Capsule) 100 mg PO DAILY PRN PRN Reason: Constipation Empagliflozin (Empagliflozin 10 Mg Tablet) 10 mg PO DAILY [facility] Last Admin: 05/22/22 07:40 Dose: 10 mg Documented By: DEYSI Fluticasone Propionate (Fluticasone Propionate 100 Mcg Blst.W.Dev) 2 puff INHALE RBID [facility] Last Admin: 05/22/22 07:53 Dose: Not Given Documented By: OBED Non-Admin Reason: Patient Asleep Furosemide (Furosemide 20 Mg Tablet) 20 mg PO DAILY [facility]; Protocol Last Admin: 05/22/22 07:40 Dose: 20 mg Documented By: DEYSI Guaifenesin (Guaifenesin 100 Mg/5 Ml Liquid) 10 ml PO Q4H PRN PRN Reason: Cough Last Admin: 05/21/22 19:35 Dose: 10 ml Documented By: GIUSEPPE Guaifenesin/Dextromethorphan (Guaifenesin Dm 100/10/5 Ml 5 Ml Syrup) 5 ml PO Q4H PRN PRN Reason: Cough Last Admin: 05/20/22 00:51 Dose: 5 ml Documented By: SOCORRO Ceftriaxone Sodium 1 gm/ (Sodium Chloride) 50 mls @ 100 mls/hr IV Q24H [facility] Last Infusion: 05/22/22 06:29 Dose: 0 mls/hr Documented By: SHARA Insulin Glargine (Insulin Glargine,Hum.Rec.Anlog 100 Unit/Ml 10 Ml Vial) 32 unit SUBCUT BEDTIME [facility] Last Admin: 05/21/22 21:02 Dose: 32 unit Documented By: GIUSEPPE Insulin Human Lispro (Insulin Lispro 100 Unit/Ml 3 Ml Vial) 0 unit SUBCUT QID ACHS [facility]; Protocol Last Admin: 05/22/22 07:41 Dose: 2 unit Documented By: DEYSI Levothyroxine Sodium (Levothyroxine Sodium 75 Mcg Tablet) 75 mcg PO DAILY@0600 [facility] Last Admin: 05/22/22 05:17 Dose: 75 mcg Documented By: SHARA Lisinopril (Lisinopril 5 Mg Tablet) 5 mg PO DAILY [facility]; Protocol Last Admin: 05/22/22 07:45 Dose: 5 mg Documented By: DEYSI Loratadine (Loratadine 10 Mg Tablet) 10 mg PO DAILY [facility] Last Admin: 05/22/22 07:41 Dose: 10 mg Documented By: DEYSI Medroxyprogesterone Acetate (Medroxyprogesterone Acetate 5 Mg Tablet) 10 mg PO DAILY [facility] Last Admin: 05/22/22 07:40 Dose: 10 mg Documented By: DEYSI Metformin HCl (Metformin Hcl 1,000 Mg Tablet) 1,000 mg PO BID [facility] Last Admin: 05/22/22 07:39 Dose: 1,000 mg Documented By: DEYSI Metoprolol Succinate (Metoprolol Succinate Er 50 Mg Tab.Er.24h) 50 mg PO DAILY [facility]; Protocol Last Admin: 05/22/22 07:39 Dose: 50 mg Documented By: DEYSI Non-Formulary Medication (Dulaglutide [Trulicity]) 4.5 mg SUBCUT FR [facility] Omeprazole (Omeprazole 20 Mg Capsule.Dr) 20 mg PO DAILY@0630 [facility] Last Admin: 05/22/22 05:17 Dose: 20 mg Documented By: SHARA Ondansetron HCl (Ondansetron Hcl 4 Mg/2 Ml Vial) 4 mg IVPUSH Q8H PRN PRN Reason: Nausea and Vomiting Risperidone (Risperidone 0.5 Mg Tablet) 0.5 mg PO BID PRN PRN Reason: PTSD sx, grounding sx Sertraline HCl (Sertraline Hcl 50 Mg Tablet) 150 mg PO DAILY [facility] Last Admin: 05/22/22 07:40 Dose: 150 mg Documented By: DEYSI Sodium Chloride (0.9 % Sodium Chloride Flush 3 Ml Syringe) 3 ml IVFLUSH QSHIFT [facility] Last Admin: 05/22/22 07:41 Dose: 3 ml Documented By: DEYSI Trazodone HCl (Trazodone Hcl 50 Mg Tablet) 50 mg PO BEDTIME [facility] Last Admin: 05/21/22 19:36 Dose: 50 mg Documented By: GIUSEPPE Warfarin Sodium (Warfarin Sodium 5 Mg Tablet) 10 mg PO MoWeFr@1800 [facility] Last Admin: 05/21/22 18:10 Dose: 10 mg Documented By: RICO Warfarin Sodium (Warfarin Sodium 5 Mg Tablet) 5 mg PO SuTuThSa@1800 [facility] Warfarin Sodium (Warfarin Sodium 2 Mg Tablet) 2 mg PO ONCE@1800 ONE Stop: 05/22/22 18:01 Labs 05/20/22 06:10 05/20/22 06:10 Labs: Laboratory Results - last 24 hr 05/21/22 05/21/22 05/21/22 11:05 17:09 20:40 PT INR POC Glucose 209 H 136 H 189 H 05/22/22 05/22/22 05/22/22 05:09 07:08 07:42 PT 15.3 H INR 1.3 H POC Glucose 143 H 197 H Microbiology Microbiology Results: Microbiology 05/19/22 22:44 Blood Culture - Preliminary Blood - Venous No growth after 48 hours. Blood Culture - Preliminary No growth after 48 hours. 05/19/22 22:44 Blood Culture - Preliminary Blood - Venous No growth after 48 hours. Assessment and Plan (1) Acute respiratory failure with hypoxia: Status: Acute (2) Community acquired pneumonia: Status: Acute (3) Super obesity: Status: Acute Plan 47-year-old female with past medical history of obesity, CHF, asthma, HTN, diabetes, among others presents to the hospital with complaints of shortness of breath, cough, sputum production found to have acute pneumonia 1.? acute hypoxic respiratory failure -? likely secondary to acute pneumonia, no evidence of CHF, PE less likely as patient is already on come -? will treat with O2 as required.? treat underlying pneumonia as below -? monitor respiratory status -? wean O2 as tolerated 2. community-acquired pneumonia -? COVID-19, influenza, as well as RSV negative -? no leukocytosis, patient is hypoxic -? will treat with IV antibiotics -? follow cultures 3.? CHF -? history of CHF, unable to assess of diastolic versus systolic as no echo on file -? not in exacerbation -?bnp normal, euvolemic -? monitor on status 4.? hypothyroidism -? continue levothyroxine ?5. hypertension -? stable -? continue antihypertensives ?6. diabetes -? hold oral antihyperglycemics continue home insulin regimen and sliding scale insulin -? diabetic diet 7.? history of PE/DVT PT INR subtherapeutic ,missed warfarin yesterday -? continue Coumadin ,adjusted warfarin extra 5 mg today. ?8. ROGERIO -? will order CPAP at bedtime 9. anxiety, PTSD -? continue mood stabilizers 10.super obesity: Encouraged to lose weight. 11. Hx of asthma (mild intermittent). stable ,continue home meds. ?DVT prophylaxis:? Warfarin inpatient need: acute hypoxia requiring oxygen sec to pneumonia requiring IV antibiotics . Time Spent With Patient Time: Total time managing care of this patient today ____ minutes. Quality Stroke Does the patient have a stroke diagnosis?: No VTE Prior VTE?: No VTE Risk Level:: Medical - moderate - high VTE Device Contraindication: Treatment Not Indicated VTE Drug Contraindication: N/A - Med Ordered
[2022-05-22 11:19] LABS: Glucose, Whole Blood 169 mg/dL (60-115)
[2022-05-22 17:28] LABS: Glucose, Whole Blood 281 mg/dL (60-115)
[2022-05-22] MEDS: Warfarin Sodium 5 MG TABLET PO ×2 (17:34→17:35)
[2022-05-22] MEDS: Fluticasone Propionate 100 MCG BLST.W.DEV 2 PUFF INHALE (20:43)
[2022-05-22] MEDS: traZODone HCL 50 MG TABLET PO (21:31)
[2022-05-22] MEDS: Insulin Glargine,Hum.rec.anlog 100 UNIT/ML 10 ML VIAL 32 UNIT SUBCUT (21:32)
[2022-05-22 22:06] LABS: Glucose, Whole Blood 146 mg/dL (60-115)
[2022-05-23] VITALS (9 sets, daily range): BP systolic 107–132; BP diastolic 57–79; PULSE 65–100; RESP 16–20; TEMP 35.8–37.1; O2SAT 90–97
[2022-05-23] MEDS: cefTRIAXone sodium 1 GM in 0.9 % Sodium Chloride 50 ML IV (05:46)
[2022-05-23] MEDS: Levothyroxine Sodium 75 MCG TABLET PO (05:46)
[2022-05-23] MEDS: Azithromycin 500 MG TABLET PO ×2 (05:46→23:23)
[2022-05-23] MEDS: Omeprazole 20 MG CAPSULE.DR PO (05:46)
[2022-05-23] MEDS: Acetaminophen 325 MG TABLET 650 MG PO (05:46)
[2022-05-23 06:21] LABS: INTERNATIONAL NORM RATIO 1.6 (0.9-1.1); Prothrombin Time 18.7 SEC (10.0-13.1)
[2022-05-23 07:31] LABS: Glucose, Whole Blood 134 mg/dL (60-115)
[2022-05-23] MEDS: Empagliflozin 10 MG TABLET PO (08:06)
[2022-05-23] MEDS: Atorvastatin Calcium 40 MG TABLET PO (08:06)
[2022-05-23] MEDS: medroxyPROGESTERone Acetate 5 MG TABLET 10 MG PO (08:06)
[2022-05-23] MEDS: lisinopriL 5 MG TABLET PO (08:06)
[2022-05-23] MEDS: 0.9 % Sodium Chloride Flush 3 ML SYRINGE IVFLUSH ×3 (08:07→19:35)
[2022-05-23] MEDS: Sertraline HCL 50 MG TABLET 150 MG PO (08:07)
[2022-05-23] MEDS: Furosemide 20 MG TABLET PO (08:07)
[2022-05-23] MEDS: metFORMIN HCl 1,000 MG TABLET 1000 MG PO ×2 (08:07→21:53)
[2022-05-23] MEDS: Loratadine 10 MG TABLET PO (08:07)
[2022-05-23] MEDS: Metoprolol Succinate ER 50 MG TAB.ER.24H PO (08:07)
[2022-05-23] MEDS: Fluticasone Propionate 100 MCG BLST.W.DEV 2 PUFF INHALE ×2 (08:12→19:44)
[2022-05-23 11:05] LABS: Glucose, Whole Blood 213 mg/dL (60-115)
[2022-05-23] MEDS: Insulin Lispro 100 UNIT/ML 3 ML VIAL SUBCUT ×3 (11:47→21:53)
--- NOTE | 2022-05-23 13:30 | P.PNIM_ITS ---
Subjective Subjective Date of Service: 05/23/22 Interval History: shortness of breath,cough Review of Systems Still feels short of breath with execersion,sats goes down also with walkin , talks small sentences, has dry cough.? No fever ,no chills ,no chest pain Physical Exam Vital Signs: Vital Signs: Last Vital Signs Temp 96.5 F L 05/23/22 07:17 Pulse 97 05/23/22 08:16 Resp 18 05/23/22 08:16 BP 112/57 L 05/23/22 07:17 Pulse Ox 90 L 05/23/22 07:17 O2 Del Method 05/23/22 07:17 O2 Flow Rate 3 05/23/22 07:17 Oxygen Flow Rate 2 05/19/22 15:30 BMI result Body Mass Index 53.8 Appearance: Alert.? Oriented X3.?sob. cvs: rrr, [id number] , no murmur res: air entery diminshed ,has b/l exp wheezing abd: no rebound or guarding ,nt, bs present. ext pulses present , no cyanosis . neuro: axo3 , nonfocal. Objective Data Active Medications Acetaminophen (Acetaminophen 325 Mg Tablet) 650 mg PO Q6H PRN PRN Reason: Pain, Mild (Pain Scale 1-3) Last Admin: 05/23/22 05:46 Dose: 650 mg Documented By: MINDY Albuterol Sulfate (Albuterol Sulfate (0.083%) 2.5 Mg/3 Ml Vial.Neb) 2.5 mg INHALE QID PRN PRN Reason: Allergic Reaction Albuterol Sulfate (Albuterol Sulfate 90 Mcg 8 Gm Inhaler) 2 puff INHALE Q4H PRN PRN Reason: Wheezing Atorvastatin Calcium (Atorvastatin Calcium 40 Mg Tablet) 40 mg PO DAILY [facility] Last Admin: 05/23/22 08:06 Dose: 40 mg Documented By: DEYSI Azithromycin (Azithromycin 500 Mg Tablet) 500 mg PO Q24H [facility] Last Admin: 05/23/22 05:46 Dose: 500 mg Documented By: MINDY Clonazepam (Clonazepam 0.5 Mg Tablet) 0.5 mg PO BID PRN PRN Reason: anxiety Last Admin: 05/22/22 05:34 Dose: 0.5 mg Documented By: SHARA Docusate Sodium (Docusate Sodium 100 Mg Capsule) 100 mg PO DAILY PRN PRN Reason: Constipation Empagliflozin (Empagliflozin 10 Mg Tablet) 10 mg PO DAILY [facility] Last Admin: 05/23/22 08:06 Dose: 10 mg Documented By: DEYSI Fluticasone Propionate (Fluticasone Propionate 100 Mcg Blst.W.Dev) 2 puff INHAL E RBID [facility] Last Admin: 05/23/22 08:12 Dose: 2 puff Documented By: OBED Furosemide (Furosemide 20 Mg Tablet) 20 mg PO DAILY [facility]; Protocol Last Admin: 05/23/22 08:07 Dose: 20 mg Documented By: DEYSI Guaifenesin (Guaifenesin 100 Mg/5 Ml Liquid) 10 ml PO Q4H PRN PRN Reason: Cough Last Admin: 05/21/22 19:35 Dose: 10 ml Documented By: GIUSEPPE Guaifenesin/Dextromethorphan (Guaifenesin Dm 100/10/5 Ml 5 Ml Syrup) 5 ml PO Q4H PRN PRN Reason: Cough Last Admin: 05/20/22 00:51 Dose: 5 ml Documented By: SOCORRO Ceftriaxone Sodium 1 gm/ (Sodium Chloride) 50 mls @ 100 mls/hr IV Q24H [facility] Last Infusion: 05/23/22 06:41 Dose: 0 mls/hr Documented By: MINDY Insulin Glargine (Insulin Glargine,Hum.Rec.Anlog 100 Unit/Ml 10 Ml Vial) 32 unit SUBCUT BEDTIME [facility] Last Admin: 05/22/22 21:32 Dose: 32 unit Documented By: DEYSI Insulin Human Lispro (Insulin Lispro 100 Unit/Ml 3 Ml Vial) 0 unit SUBCUT QIDAC HS [facility]; Protocol Last Admin: 05/23/22 11:47 Dose: 4 unit Documented By: DEYSI Levothyroxine Sodium (Levothyroxine Sodium 75 Mcg Tablet) 75 mcg PO DAILY@0600 [facility] Last Admin: 05/23/22 05:46 Dose: 75 mcg Documented By: MINDY Lisinopril (Lisinopril 5 Mg Tablet) 5 mg PO DAILY [facility]; Protocol Last Admin: 05/23/22 08:06 Dose: 5 mg Documented By: DEYSI Loratadine (Loratadine 10 Mg Tablet) 10 mg PO DAILY [facility] Last Admin: 05/23/22 08:07 Dose: 10 mg Documented By: DEYSI Medroxyprogesterone Acetate (Medroxyprogesterone Acetate 5 Mg Tablet) 10 mg PO DAILY [facility] Last Admin: 05/23/22 08:06 Dose: 10 mg Documented By: DEYSI Metformin HCl (Metformin Hcl 1,000 Mg Tablet) 1,000 mg PO BID [facility] Last Admin: 05/23/22 08:07 Dose: 1,000 mg Documented By: DEYSI Metoprolol Succinate (Metoprolol Succinate Er 50 Mg Tab.Er.24h) 50 mg PO DAILY [facility]; Protocol Last Admin: 05/23/22 08:07 Dose: 50 mg Documented By: DEYSI Non-Formulary Medication (Dulaglutide [Trulicity]) 4.5 mg SUBCUT FR [facility] Omeprazole (Omeprazole 20 Mg Capsule.Dr) 20 mg PO DAILY@0630 [facility] Last Admin: 05/23/22 05:46 Dose: 20 mg Documented By: MINDY Ondansetron HCl (Ondansetron Hcl 4 Mg/2 Ml Vial) 4 mg IVPUSH Q8H PRN PRN Reason: Nausea and Vomiting Risperidone (Risperidone 0.5 Mg Tablet) 0.5 mg PO BID PRN PRN Reason: PTSD sx, grounding sx Sertraline HCl (Sertraline Hcl 50 Mg Tablet) 150 mg PO DAILY [facility] Last Admin: 05/23/22 08:07 Dose: 150 mg Documented By: DEYSI Sodium Chloride (0.9 % Sodium Chloride Flush 3 Ml Syringe) 3 ml IVFLUSH QSHIFT [facility] Last Admin: 05/23/22 08:07 Dose: 3 ml Documented By: DESYI Trazodone HCl (Trazodone Hcl 50 Mg Tablet) 50 mg PO BEDTIME [facility] Last Admin: 05/22/22 21:31 Dose: 50 mg Documented By: DEYSI Warfarin Sodium (Warfarin Sodium 5 Mg Tablet) 10 mg PO MoWeFr@1800 [facility] Last Admin: 05/21/22 18:10 Dose: 10 mg Documented By: RICO Warfarin Sodium (Warfarin Sodium 5 Mg Tablet) 5 mg PO SuTuThSa@1800 [facility] Last Admin: 05/22/22 17:35 Dose: 5 mg Documented By: DEYSI Warfarin Sodium (Warfarin Sodium 1 Mg Tablet) 1 mg PO ONCE@1800 ONE Stop: 05/23/22 18:01 Labs 05/20/22 06:10 05/20/22 06:10 Labs: Laboratory Results - last 24 hr 05/22/22 05/22/22 05/23/22 17:24 22:00 05:36 PT 18.7 H INR 1.6 H POC Glucose 281 H 146 H 05/23/22 05/23/22 05/23/22 05:36 07:17 10:57 PT Cancelled INR Cancelled POC Glucose 134 H 213 H Assessment and Plan (1) Acute respiratory failure with hypoxia: Status: Acute (2) Community acquired pneumonia: Status: Acute (3) Super obesity: Status: Acute (4) Subtherapeutic anticoagulation: Status: Acute Plan 47-year-old female with past medical history of obesity, CHF, asthma, HTN, diabetes, among others presents to the hospital with complaints of shortness of breath, cough, sputum production found to have acute pneumonia 1.? acute hypoxic respiratory failure -? likely secondary to acute pneumonia, no evidence of CHF, PE less likely as patient is already on come -? will treat with O2 as required.? treat underlying pneumonia as below -? monitor respiratory status -? wean O2 as tolerated 2. community-acquired pneumonia -? COVID-19, influenza, as well as RSV negative -? no leukocytosis, patient is stil symptomatic-sob with minimal excersion ,also sats drop down in low 80's with walking -? will treat with IV antibiotics -? follow cultures 3.? CHF -? history of CHF, unable to assess of diastolic versus systolic as no echo on file -? not in exacerbation -?bnp normal, euvolemic -? monitor on status 4.? hypothyroidism -? continue levothyroxine ?5. hypertension -? stable -? continue antihypertensives ?6. diabetes -? hold oral antihyperglycemics continue home insulin regimen and sliding scale insulin -? diabetic diet 7.? history of PE/DVT PT INR subtherapeutic ,missed warfarin yesterday -? continue Coumadin ,adjusted warfarin extra 5 mg today. ?8. ROGERIO -? will order CPAP at bedtime 9. anxiety, PTSD -? continue mood stabilizers 10.super obesity: Encouraged to lose weight. 11. Hx of asthma (mild intermittent). stable ,continue home meds. ?DVT prophylaxis:? Warfarin inpatient need: acute hypoxia requiring oxygen sec to pneumonia requiring IV antibiotics . Time Spent With Patient Time: Total time managing care of this patient today ____ minutes. Quality Stroke Does the patient have a stroke diagnosis?: No VTE Prior VTE?: No VTE Risk Level:: Medical - moderate - high VTE Device Contraindication: Treatment Not Indicated VTE Drug Contraindication: N/A - Med Ordered
[2022-05-23] MEDS: guaiFENesin DM 100/10/5 ML 5 ML SYRUP PO (15:38)
[2022-05-23 16:13] LABS: Glucose, Whole Blood 158 mg/dL (60-115)
[2022-05-23] MEDS: Warfarin Sodium 1 MG TABLET PO (17:28)
[2022-05-23] MEDS: Warfarin Sodium 5 MG TABLET PO (17:28)
[2022-05-23] MEDS: Warfarin Sodium 2.5 MG TABLET PO (19:34)
[2022-05-23] MEDS: Albuterol Sulfate 90 MCG 8 GM INHALER 2 PUFF INHALE (19:52)
[2022-05-23 21:00] LABS: Glucose, Whole Blood 162 mg/dL (60-115)
[2022-05-23] MEDS: traZODone HCL 50 MG TABLET PO (21:53)
[2022-05-23] MEDS: Insulin Glargine,Hum.rec.anlog 100 UNIT/ML 10 ML VIAL 32 UNIT SUBCUT (21:54)
[2022-05-23] MEDS: guaiFENesin 100 MG/5 ML LIQUID 10 ML PO (22:02)
[2022-05-24] VITALS (9 sets, daily range): BP systolic 104–109; BP diastolic 52–71; PULSE 80–114; RESP 17–20; TEMP 36.1–36.4; O2SAT 78–96
[2022-05-24] MEDS: cefTRIAXone sodium 1 GM in 0.9 % Sodium Chloride 50 ML IV (05:21)
[2022-05-24] MEDS: Omeprazole 20 MG CAPSULE.DR PO (05:42)
[2022-05-24] MEDS: Levothyroxine Sodium 75 MCG TABLET PO (05:42)
[2022-05-24 06:43] LABS: INTERNATIONAL NORM RATIO 1.9 (0.9-1.1); Prothrombin Time 22.2 SEC (10.0-13.1)
[2022-05-24 07:53] LABS: Glucose, Whole Blood 109 mg/dL (60-115)
[2022-05-24] MEDS: Empagliflozin 10 MG TABLET PO (08:33)
[2022-05-24] MEDS: Furosemide 20 MG TABLET PO (08:33)
[2022-05-24] MEDS: metFORMIN HCl 1,000 MG TABLET 1000 MG PO (08:33)
[2022-05-24] MEDS: lisinopriL 5 MG TABLET PO (08:34)
[2022-05-24] MEDS: Loratadine 10 MG TABLET PO (08:34)
[2022-05-24] MEDS: Metoprolol Succinate ER 50 MG TAB.ER.24H PO (08:34)
[2022-05-24] MEDS: Sertraline HCL 50 MG TABLET 150 MG PO (08:34)
[2022-05-24] MEDS: Atorvastatin Calcium 40 MG TABLET PO (08:34)
[2022-05-24] MEDS: medroxyPROGESTERone Acetate 5 MG TABLET 10 MG PO (08:37)
[2022-05-24] MEDS: 0.9 % Sodium Chloride Flush 3 ML SYRINGE IVFLUSH (08:40)
[2022-05-24] MEDS: Fluticasone Propionate 100 MCG BLST.W.DEV 2 PUFF INHALE (08:56)
[2022-05-24 11:12] LABS: Glucose, Whole Blood 228 mg/dL (60-115)
[2022-05-24] MEDS: Insulin Lispro 100 UNIT/ML 3 ML VIAL SUBCUT (11:51)
--- NOTE | 2022-05-24 12:57 | PM.DS ---
DS: Providers Provider Date of Service: 05/24/22 Date of admission: 05/19/22 23:31 Date of discharge: 05/24/22 Primary care physician: Maria Guadalupe Severino MD Attending physician on discharge: Darya Patel DS: Diagnosis Discharge Diagnosis (1) Acute respiratory failure with hypoxia: Status: Acute (2) Community acquired pneumonia: Status: Acute (3) Super obesity: Status: Acute (4) Subtherapeutic anticoagulation: Status: Acute DS: Summary Hospital Course Hospital Course: 47-year-old female with past medical history of diabetes, history of PE on Coumadin, history of ROGERIO, PTSD, hypothyroidism, HTN, hyperlipidemia, obesity, anxiety, asthma, presents to the hospital with complaints of shortness of breath as well as cough and sputum production.? Symptoms started 2 days ago.? Reports fever, chills, no chest pain, no shortness of breath, no lower extremity edema, no abdominal pain nausea or vomiting, no diarrhea constipation, no urine symptoms.? On arrival to the ED patient noted to be hypoxic satting 84% on? 2 L of oxygen ?labs are significant for the wrist seek count of 5.8, BNP of 70, labs otherwise unremarkable COVID-19, influenza, RSV negative Chest CT shows small focal airspace opacities with air bronchogram at the right lower lobe and right middle lobe, ?patient started on IV antibiotics and will be admitted for further management. Hospital course : Patient was admitted because of acute hypoxemic respiratory failure secondary to pneumonia: Still started on IV antibiotics, oxygen support seems to be improved significantly, no leukocytosis, no fever, blood culture negative at 48 hours. Patient seems to be improved significantly, home oxygen evaluation -She takes 3 L oxygen at home at baseline she is sats 94% with 3 liter. Patient will be going home with p.o. antibiotics Please repeat chest imaging in 3-4 weeks to see resolution of pneumonia with PCP. Patient history of PE on warfarin: INR was subtherapeutic, given extra Coumadin during this admission,inr seems to be near therapeutic 1.9. upon discharge Coumadin dosing adjusted:Monitor INR outpatient in next few days. Further management outpatient. plan: Please complete the course of antibiotics, chest imaging studies in 3-4 weeks outpatient with PCP. Monitor INR in next few days, warfarin adjusted to 6 mg(Tuesday, Tuesday, Tuesday), rest of other days is patient takes 10 mg. Assessment and plan coordination time spent 50 minute. Time Spent with Patient Time attestation: Total time managing care of this patient today ____ minutes. Discharge coordination time: Greater than 30 minutes Quality: Safe Use of Opioids Does Pt have an Active Cancer Diagnosis on the Problem List?: No Quality: Stroke Does the patient have a stroke diagnosis?: No Physical Exam Vital Signs: Vital Signs: Last Vital Signs Temp 97.5 F 05/24/22 11:38 Pulse 85 05/24/22 11:38 Resp 18 05/24/22 11:38 BP 108/61 05/24/22 11:38 Pulse Ox 96 05/24/22 11:38 O2 Del Method 05/24/22 11:38 O2 Flow Rate 3.0 05/24/22 11:38 Oxygen Flow Rate 2 05/19/22 15:30 BMI result Body Mass Index 53.8 Appearance: Alert.? Oriented X3.?sob. cvs: rrr, [id number] , no murmur res: air entery diminshed ,has b/l exp wheezing abd: no rebound or guarding ,nt, bs present. ext pulses present , no cyanosis . neuro: axo3 , nonfocal. DS: Data Data Completed and Pending Labs on day of discharge: Laboratory Results - last 24 hr 05/23/22 05/23/22 05/24/22 16:09 20:53 05:52 PT 22.2 H INR 1.9 H POC Glucose 158 H 162 H 05/24/22 05/24/22 05/24/22 05:52 07:49 11:07 PT Cancelled INR Cancelled POC Glucose 109 228 H Preliminary micro results at discharge 05/19/22 22:44 Blood Culture - Preliminary Blood - Venous No growth after 48 hours. Blood Culture - Preliminary No growth after 48 hours. 05/19/22 22:44 Blood Culture - Preliminary Blood - Venous No growth after 48 hours. Imaging Chest x-ray: Radiologist's impression: ITS Impressions Chest X-Ray 05/19/22 17:10 IMPRESSION: No acute abnormality of chest. Chest CT 05/19/22 21:19 IMPRESSION: 1. Small focal airspace opacities with air bronchograms at the right lower lobe and right middle lobe. 2. Cardiomegaly. 3. Cholelithiasis. 4. Leigh are prominent bilaterally, right greater than left. Cannot optimally assess the leigh without IV contrast. There does not appear to be significant change of the leigh since the prior CT angiography chest 10/29/2020. Fleischner guidelines were followed. Discharge Plan Discharge Anticipated Discharge Date/Time: 05/24/22 12:47 Patient Disposition: Home Health Service Discharge Diagnosis: Acute hypoxemic respiratory failure secondary to pneumonia , subtherapeutic INR. Referrals: Maria Guadalupe Severino MD [Primary Care Provider] - 1 Week Discharge Medications: New azithromycin 500 mg tablet 500 mg PO DAILY 3 Days Qty: 3 0RF cefuroxime axetil 500 mg tablet 500 mg PO BID Qty: 10 0RF warfarin 6 mg tablet 6 mg PO 4XW Qty: 14 0RF Rx Instructions: on tuesday,tuesday,tuesday and -take warfarin 6 mg by mouth Continued (DME) FreeStyle [place] 2 [facility] See Rx Instructions .ROUTE .MEDSUPPLY Qty: 1 0RF Rx Instructions: As directed (DME) pen needle, diabetic [BD Ultra-Fine Leslie Pen Needle] 32 gauge x 5/32 needle See Rx Instructions .ROUTE .MEDSUPPLY Qty: 100 11RF Rx Instructions: As directed three times a day atorvastatin 40 mg tablet 40 mg PO DAILY Qty: 30 6RF Farxiga 5 mg tablet 5 mg PO DAILY Qty: 30 0RF albuterol sulfate 2.5 mg /3 mL (0.083 %) Solution For Nebulization 2.5 mg inhalation QID PRN (Reason: Allergic Reaction) Qty: 3 0RF Trulicity 4.5 mg/0.5 mL pen injector 4.5 mg subcut FR furosemide 20 mg tablet 1 tab PO DAILY lisinopril 5 mg tablet 1 tab PO DAILY levothyroxine 75 mcg tablet 1 tab PO DAILY loratadine 10 mg tablet 1 tab PO DAILY metoprolol succinate 50 mg tablet extended release 24 hr 1 tab PO DAILY omeprazole 20 mg capsule,delayed release(DR/EC) 1 cap PO DAILY trazodone 50 mg tablet 1 tab PO BEDTIME risperidone 0.5 mg Tablet 0.5 mg PO BID PRN (Reason: PTSD sx, grounding sx) Qty: 14 2RF sertraline 100 mg tablet 1.5 tab PO QAM fluticasone propionate [Flovent HFA] 110 mcg/actuation HFA aerosol inhaler 2 puff inhalation BID medroxyprogesterone 10 mg tablet 1 tab PO DAILY clonazepam 1 mg tablet 0.5 tab PO BID PRN (Reason: anxiety) albuterol sulfate [ProAir HFA] 90 mcg/actuation HFA aerosol inhaler 2 puff inhalation Q4H PRN (Reason: Wheezing) warfarin 5 mg tablet 10 mg PO MOWEFR@1700 [employer] Max U-300 SoloStar 300 unit/mL (3 mL) insulin pen 40 unit subcut BEDTIME 30 Days Qty: 6 4RF insulin lispro [Humalog KwikPen Insulin] 100 unit/mL insulin pen See Rx Instructions subcut TIDWMEAL Qty: 15 6RF Rx Instructions: 8 u shake, 12 u small meal, 16 u lreg/lrg meal subcutaneously 3 times per day with meals; metformin 1,000 mg tablet 1,000 mg PO BID 90 Days Qty: 180 1RF (DME) FreeStyle Shelby 2 Sensor Kit See Rx Instructions .ROUTE .MEDSUPPLY Qty: 2 11RF Rx Instructions: As directed every 2 weeks Discontinued warfarin 5 mg tablet 5 mg [facility] Discharge Orders: Discharge Order (Routine); Ordered 05/24/22 Ordered By: Darya Patel Diet: Advance to usual diet Activity on Discharge: As tolerated Stand Alone Forms: Patient Portal Discharge page Care Plan Goals: Patient was admitted because of acute hypoxemic respiratory failure secondary to pneumonia: Still started on IV antibiotics, oxygen support seems to be improved significantly, no leukocytosis, no fever, blood culture negative at 48 hours. Patient seems to be improved significantly, home oxygen evaluation -She takes 3 L oxygen at home at baseline she is sats 94% with 3 liter. Patient will be going home with p.o. antibiotics Please repeat chest imaging in 3-4 weeks to see resolution of pneumonia with PCP. Patient history of PE on warfarin: INR was subtherapeutic, given extra Coumadin during this admission,inr seems to be near therapeutic 1.9. upon discharge Coumadin dosing adjusted:Monitor INR outpatient in next few days. Further management outpatient. Health Concerns: As above. Plan of Treatment: As above. Assessment: As above. Patient Instructions: Pneumonia (DC)
--- NOTE | 2022-05-24 13:24 | P.PNIM_ITS ---
Subjective Subjective Date of Service: 05/24/22 Interval History: shortness of breath,cough Review of Systems sob seems to be improving, has dry cough.? No fever ,no chills ,no chest pain Physical Exam Vital Signs: Vital Signs: Last Vital Signs Temp 97.5 F 05/24/22 11:38 Pulse 85 05/24/22 11:38 Resp 18 05/24/22 11:38 BP 108/61 05/24/22 11:38 Pulse Ox 96 05/24/22 11:38 O2 Del Method 05/24/22 11:38 O2 Flow Rate 3.0 05/24/22 11:38 Oxygen Flow Rate 2 05/19/22 15:30 BMI result Body Mass Index 53.8 Appearance: Alert.? Oriented X3.?sob. cvs: rrr, [id number] , no murmur res: air entery diminshed ,has b/l exp wheezing abd: no rebound or guarding ,nt, bs present. ext pulses present , no cyanosis . neuro: axo3 , nonfocal. Objective Data Active Medications Acetaminophen (Acetaminophen 325 Mg Tablet) 650 mg PO Q6H PRN PRN Reason: Pain, Mild (Pain Scale 1-3) Last Admin: 05/23/22 05:46 Dose: 650 mg Documented By: MINDY Albuterol Sulfate (Albuterol Sulfate (0.083%) 2.5 Mg/3 Ml Vial.Neb) 2.5 mg INHALE QID PRN PRN Reason: Allergic Reaction Albuterol Sulfate (Albuterol Sulfate 90 Mcg 8 Gm Inhaler) 2 puff INHALE Q4H PRN PRN Reason: Wheezing Last Admin: 05/23/22 19:52 Dose: 2 puff Documented By: TELLY Atorvastatin Calcium (Atorvastatin Calcium 40 Mg Tablet) 40 mg PO DAILY [facility] Last Admin: 05/24/22 08:34 Dose: 40 mg Documented By: BIBIANA Azithromycin (Azithromycin 500 Mg Tablet) 500 mg PO Q24H [facility] Last Admin: 05/23/22 23:23 Dose: 500 mg Documented By: GEOVANNA Clonazepam (Clonazepam 0.5 Mg Tablet) 0.5 mg PO BID PRN PRN Reason: anxiety Last Admin: 05/22/22 05:34 Dose: 0.5 mg Documented By: SHARA Docusate Sodium (Docusate Sodium 100 Mg Capsule) 100 mg PO DAILY PRN PRN Reason: Constipation Empagliflozin (Empagliflozin 10 Mg Tablet) 10 mg PO DAILY [facility] Last Admin: 05/24/22 08:33 Dose: 10 mg Documented By: BIBIANA Fluticasone Propionate (Fluticasone Propionate 100 Mcg Blst.W.Dev) 2 puff INHALE RBID [facility] Last Admin: 05/24/22 08:56 Dose: 2 puff Documented By: ASMITA Furosemide (Furosemide 20 Mg Tablet) 20 mg PO DAILY [facility]; Protocol Last Admin: 05/24/22 08:33 Dose: 20 mg Documented By: BIBIANA Guaifenesin (Guaifenesin 100 Mg/5 Ml Liquid) 10 ml PO Q4H PRN PRN Reason: Cough Last Admin: 05/23/22 22:02 Dose: 10 ml Documented By: GEOVANNA Guaifenesin/Dextromethorphan (Guaifenesin Dm 100/10/5 Ml 5 Ml Syrup) 5 ml PO Q4H PRN PRN Reason: Cough Last Admin: 05/23/22 15:38 Dose: 5 ml Documented By: DEYSI Ceftriaxone Sodium 1 gm/ (Sodium Chloride) 50 mls @ 100 mls/hr IV Q24H [facility] Last Infusion: 05/24/22 05:56 Dose: 0 mls/hr Documented By: GEOVANNA Insulin Glargine (Insulin Glargine,Hum.Rec.Anlog 100 Unit/Ml 10 Ml Vial) 32 unit SUBCUT BEDTIME [facility] Last Admin: 05/23/22 21:54 Dose: 32 unit Documented By: GEOVANNA Insulin Human Lispro (Insulin Lispro 100 Unit/Ml 3 Ml Vial) 0 unit SUBCUT QIDACHS [facility]; Protocol Last Admin: 05/24/22 11:51 Dose: 4 unit Documented By: BIBIANA Levothyroxine Sodium (Levothyroxine Sodium 75 Mcg Tablet) 75 mcg PO DAILY@0600 [facility] Last Admin: 05/24/22 05:42 Dose: 75 mcg Documented By: GEOVANNA Lisinopril (Lisinopril 5 Mg Tablet) 5 mg PO DAILY [facility]; Protocol Last Admin: 05/24/22 08:34 Dose: 5 mg Documented By: BIBIANA Loratadine (Loratadine 10 Mg Tablet) 10 mg PO DAILY [facility] Last Admin: 05/24/22 08:34 Dose: 10 mg Documented By: BIBIANA Medroxyprogesterone Acetate (Medroxyprogesterone Acetate 5 Mg Tablet) 10 mg PO DAILY [facility] Last Admin: 05/24/22 08:37 Dose: 10 mg Documented By: BIBIANA Metformin HCl (Metformin Hcl 1,000 Mg Tablet) 1,000 mg PO BID [facility] Last Admin: 05/24/22 08:33 Dose: 1,000 mg Documented By: BIBIANA Metoprolol Succinate (Metoprolol Succinate Er 50 Mg Tab.Er.24h) 50 mg PO DAILY [facility]; Protocol Last Admin: 05/24/22 08:34 Dose: 50 mg Documented By: BIBIANA Non-Formulary Medication (Dulaglutide [Trulicity]) 4.5 mg SUBCUT [facility] Omeprazole (Omeprazole 20 Mg Capsule.Dr) 20 mg PO DAILY@0630 [facility] Last Admin: 05/24/22 05:42 Dose: 20 mg Documented By: GEOVANNA Ondansetron HCl (Ondansetron Hcl 4 Mg/2 Ml Vial) 4 mg IVPUSH Q8H PRN PRN Reason: Nausea and Vomiting Risperidone (Risperidone 0.5 Mg Tablet) 0.5 mg PO BID PRN PRN Reason: PTSD sx, grounding sx Sertraline HCl (Sertraline Hcl 50 Mg Tablet) 150 mg PO DAILY [facility] Last Admin: 05/24/22 08:34 Dose: 150 mg Documented By: BIBIANA Sodium Chloride (0.9 % Sodium Chloride Flush 3 Ml Syringe) 3 ml IVFLUSH QSHIFT [facility] Last Admin: 05/24/22 08:40 Dose: 3 ml Documented By: BIBIANA Trazodone HCl (Trazodone Hcl 50 Mg Tablet) 50 mg PO BEDTIME [facility] Last Admin: 05/23/22 21:53 Dose: 50 mg Documented By: GEOVANNA Warfarin Sodium (Warfarin Sodium 5 Mg Tablet) 10 mg PO MoWeFr@1800 [facility] Last Admin: 05/21/22 18:10 Dose: 10 mg Documented By: RICO Warfarin Sodium (Warfarin Sodium 5 Mg Tablet) 5 mg PO SuTuThSa@1800 [facility] Last Admin: 05/23/22 17:28 Dose: 5 mg Documented By: DEYSI Labs 05/20/22 06:10 05/20/22 06:10 Labs: Laboratory Results - last 24 hr 05/23/22 05/23/22 05/24/22 16:09 20:53 05:52 PT 22.2 H INR 1.9 H POC Glucose 158 H 162 H 05/24/22 05/24/22 05/24/22 05:52 07:49 11:07 PT Cancelled INR Cancelled POC Glucose 109 228 H Assessment and Plan (1) Acute respiratory failure with hypoxia: Status: Acute (2) Community acquired pneumonia: Status: Acute (3) Super obesity: Status: Acute (4) Subtherapeutic anticoagulation: Status: Acute Plan 47-year-old female with past medical history of obesity, CHF, asthma, HTN, diabetes, among others presents to the hospital with complaints of shortness of breath, cough, sputum production found to have acute pneumonia Patient was admitted because of acute hypoxemic respiratory failure secondary to pneumonia: Still started on IV antibiotics, oxygen support seems to be improved significantly, no leukocytosis, no fever, blood culture negative at [address] chest on admission showed: Possible right mediallobe pneumonia(please see imaging section for detailed report.). Patient seems to be improved significantly, home oxygen evaluation added. She takes 3 L oxygen at home at baseline. Patient will be going home with p.o. antibiotics Please repeat chest imaging in 3-4 weeks to see resolution of pneumonia with PCP. Patient history of PE on warfarin: INR was subtherapeutic, given extra Coumadin during this admission,inr seems to be near therapeutic 1.9. upon discharge Coumadin dosing adjusted:Monitor INR outpatient in next few days. Further management outpatient. CHF -? history of CHF, unable to assess of diastolic versus systolic as no echo on file -? not in exacerbation -?bnp normal, euvolemic -? monitor on status ? hypothyroidism -? continue levothyroxine hypertension -? stable -? continue antihypertensives diabetes -? hold oral antihyperglycemics continue home insulin regimen and sliding scale insulin -? diabetic diet history of PE/DVT PT INR subtherapeutic ,missed warfarin yesterday -? continue Coumadin ,adjusted warfarin extra 5 mg today. ROGERIO -? will order CPAP at bedtime anxiety, PTSD -? continue mood stabilizers super obesity: Encouraged to lose weight. Hx of asthma (mild intermittent). stable ,continue home meds. ?DVT prophylaxis:? Warfarin inpatient need: acute hypoxia requiring oxygen sec to pneumonia requiring IV antibiotics . Time Spent With Patient Time: Total time managing care of this patient today ____ minutes. Quality Stroke Does the patient have a stroke diagnosis?: No VTE Prior VTE?: No VTE Risk Level:: Medical - moderate - high VTE Device Contraindication: Treatment Not Indicated VTE Drug Contraindication: N/A - Med Ordered
--- NOTE | 2022-05-24 15:28 | MHC.CM.PN ---
NO RESPONSE FROM [facility] NO ANSWER AT NUMBER [phone] PATIENT IS GOING HOME WITH RESUMPTION OF HER NORMAL [facility] SERVICES. RN AWARE OF PLAN
== END 2022-05-24 16:42 | disposition home health service (06) | DRG 139 ==
LOC: HO.ED 22:51 → HO.EDOVER 23:53 → HO.S3 05-20 00:25
PROVIDERS: Admitting Provider Internal Medicine; Emergency Provider Student in an Organized Health Care Education/Training Program; PCP Internal Medicine; Visit Provider Internal Medicine
DX: J18.9 Pneumonia, unspecified organism (principal); J96.01 Acute respiratory failure with hypoxia; E03.9 Hypothyroidism, unspecified; G47.33 Obstructive sleep apnea (adult) (pediatric); F32.9 Major depressive disorder, single episode, unspecified; F43.10 Post-traumatic stress disorder, unspecified; E78.5 Hyperlipidemia, unspecified; J45.20 Mild intermittent asthma, uncomplicated; E66.8 Other obesity; R79.1 Abnormal coagulation profile; I50.9 Heart failure, unspecified; I11.0 Hypertensive heart disease with heart failure; Z20.822 Contact with and (suspected) exposure to COVID-19; Z68.43 Body mass index [BMI] 50.0-59.9, adult; Z91.040 Latex allergy status; Z99.81 Dependence on supplemental oxygen; Z86.711 Personal history of pulmonary embolism; Z87.891 Personal history of nicotine dependence; Z88.0 Allergy status to penicillin; Z88.6 Allergy status to analgesic agent; Z79.01 Long term (current) use of anticoagulants; Z79.51 Long term (current) use of inhaled steroids; Z79.84 Long term (current) use of oral hypoglycemic drugs; Z79.890 Hormone replacement therapy; Z79.899 Other long term (current) drug therapy
CPT/HCPCS: 36415; 71046; 71250; 80048; 80053; 81001; 81025; 82947; 83605; 83880; 85025; 85379; 85610; 87040; 87502; 87635; 93005; 94640; 94660; 99285; J0692; J0696; J1940

== ENCOUNTER 2022-09-13 14:11 | Emergency (ER) | payer OTHER, SELFPAY ==
--- NOTE | ~2022-09-13 | XR_ITS ---
EXAMINATION: XR CHEST CLINICAL INFORMATION: Chest pain. COMPARISON: 05/19/2022 TECHNIQUE: 2 views of the chest were obtained. FINDINGS: Status post median sternotomy. Fragmentation of the superior most wire. Heart size is stable. No pulmonary vascular congestion. No focal consolidation. No pleural effusion. XR/XR chest 2V IMPRESSION: No acute abnormality.
[2022-09-13 14:26] VITALS: BP 152/76; PULSE 90; RESP 24; TEMP 36.6; O2SAT 90; BMI 31.4
--- NOTE | 2022-09-13 14:33 | ED.GENADULT ---
HPI - General Adult General Chief complaint: General Medical Stated complaint: sugar is low, shaking Time Seen by Provider: 09/13/22 16:23 Source: patient Mode of arrival: ambulatory Limitations: no limitations History of Present Illness HPI narrative: Patient is a 47-year-old female who presents to the emergency department for evaluation of hypoglycemia. She states that her case making machine operator came to her home today and she was feeling shaky and ?a little out of it?. Our case making machine operator brought her to the emergency department for evaluation. Patient reports that she overall has been feeling well lately. She took her insulin glargine, 45 units yesterday night, she ate rice and hot dogs at approximately 1830. This morning around 0930, she reports her blood glucose was in the 200s, she followed sliding scale, and took Humalog 8 units subcutaneously, and did not eat anything until 1130 when she had oatmeal. Currently she is asymptomatic, she reports that she is feeling well after having had something to eat. Related Data Home Medications Medication Instructions Recorded Confirmed dulaglutide 4.5 mg/0.5 mL 4.5 mg subcut FR 03/24/21 05/20/22 subcutaneous pen injector ([facility]) furosemide 20 mg tablet 1 tab PO DAILY 05/26/21 05/20/22 levothyroxine 75 mcg tablet 1 tab PO DAILY 05/26/21 05/20/22 lisinopril 5 mg tablet 1 tab PO DAILY 05/26/21 05/20/22 loratadine 10 mg tablet 1 tab PO DAILY 05/26/21 05/20/22 metoprolol succinate 50 mg 1 tab PO DAILY 05/26/21 05/20/22 tablet,extended release 24 hr omeprazole 20 mg capsule,delayed 1 cap PO DAILY 05/26/21 05/20/22 release trazodone 50 mg tablet 1 tab PO BEDTIME 05/26/21 05/20/22 albuterol sulfate 90 mcg/actuation 2 puff inhalation Q4H PRN Wheezing 07/14/21 05/20/22 aerosol inhaler (ProAir HFA) clonazepam 1 mg tablet 0.5 tab PO BID PRN anxiety 07/14/21 05/20/22 medroxyprogesterone 10 mg tablet 1 tab PO DAILY 07/14/21 05/20/22 warfarin 5 mg tablet 10 mg PO MOWEFR@1700 07/14/21 05/20/22 fluticasone propionate 110 2 puff inhalation BID 07/22/21 05/20/22 mcg/actuation HFA aerosol inhaler (Flovent HFA) sertraline 100 mg tablet 1.5 tab PO QAM 07/22/21 05/20/22 Previous Rx's Medication Instructions Recorded albuterol sulfate 2.5 mg/3 mL 2.5 mg (3 mL) inhalation QID PRN 11/17/20 (0.083 %) solution for nebulization Allergic Reaction #3 mL risperidone 0.5 mg tablet 0.5 mg PO BID PRN PTSD sx, 06/05/21 grounding sx #14 tabs flash glucose sensor (FreeStyle #2 ea 06/23/21 Shelby 2 Sensor kit) flash glucose scanning reader #1 ea 07/22/21 (FreeStyle [place] 2 [place]) pen needle, diabetic 32 gauge x #100 ea 09/04/21 (BD Ultra-Fine Leslie Pen Needle) insulin glargine U-300 conc 300 40 unit (0.1333 mL) subcut BEDTIME 09/22/21 unit/mL (3 mL) subcutaneous pen 30 days #6 mL (Toujeo Max U-300 SoloStar) insulin lispro 100 unit/mL See Rx Instructions subcut 09/22/21 subcutaneous pen (Humalog KwikPen TIDWMEAL #15 mL (U-100) Insulin) metformin 1,000 mg tablet 1,000 mg PO BID 90 days #180 tabs 09/22/21 atorvastatin 40 mg tablet 40 mg PO DAILY #30 tabs 10/26/21 dapagliflozin propanediol 5 mg 5 mg PO DAILY #30 tabs 01/05/22 tablet (Farxiga) azithromycin 500 mg tablet 500 mg PO DAILY 3 days #3 tabs 05/24/22 cefuroxime axetil 500 mg tablet 500 mg PO BID #10 tabs 05/24/22 warfarin 6 mg tablet 6 mg PO 4XW #14 tabs 05/24/22 Allergies Allergy/AdvReac Type Severity Reaction Status Date / Time Penicillins [PENICILLINS] Allergy Intermediate HIVES Verified 09/22/21 14:56 egg [Egg] Allergy Mild SWELLING Verified 09/22/21 14:56 aspirin Allergy Unknown Unknown Verified 09/22/21 14:56 bee pollen [BEE STINGS] Allergy Unknown UNKNOWN Verified 09/22/21 14:56 lactose [LACTOSE] Allergy Unknown UNKNOWN Verified 09/22/21 14:56 latex [LATEX] Allergy Unknown HIVES Verified 09/22/21 14:56 oxycodone Allergy Unknown Unknown Verified 09/22/21 14:56 peanut [PEANUT] Allergy Unknown UNKNOWN Verified 09/22/21 14:56 penicillin V Allergy Unknown Unknown Verified 09/22/21 14:56 kiwi Allergy Anaphylaxis Verified 09/22/21 14:56 eggs,bees,latex,peanuts Allergy Unknown Unknown Uncoded 09/22/21 14:56 medical tape Allergy Unknown Unknown Uncoded 09/22/21 14:56 TAPE,PLASTIC Allergy Unknown RASH Uncoded 09/22/21 14:56 Review of Systems Review of Systems: Yes all other systems are reviewed and are negative PMFSH Past Medical History Attestation statement: The following information was validated with the patient. Source: old records reviewed Medical History Acute hyperglycemia Anxiety Asthma BMI 50.0-59.9, adult Cardiomyopathy CHF (congestive heart failure) Depression Diabetes mellitus, type 2 Diabetes type 2, uncontrolled DVT (deep vein thrombosis) in Essential hypertension Gallstones Hyperlipidemia LDL goal <70 Hypertension Hypothyroidism Irritable bowel Mood disorder Obesity due to excess calories ROGERIO (obstructive sleep apnea) Pancreatitis Proteinuria PTSD (post-traumatic stress disorder) PTSD (post-traumatic stress disorder) Pulmonary embolism Recurrent major depression Surgical History History of dental surgery History of open heart surgery Hx of hernia repair Hx of removal of cyst Family History Family History Paternal Grandmother Diabetes Social History Social History Household Members: Caregiver Housing: Apartment Housing Other:: Has CONSUMER SERVICES CONSULTANT twice a day. Do you presently have visiting nurse or other home services: Yes Unable to assess alcohol history related to: Refusing to respond Alcohol intake: never Patient Tobacco Use Status: Former Tobacco user Tobacco use type: Cigarette e-Cigarette/Vaping Use: Never Used Second Hand Smoke Exposure: Yes Substance Use Type: Marijuana Advance Directives: No Advance Directives Information Provided: No service: No Current occupational status: disabled Sexual orientation: Lesbian/Good/Homosexual Physical Exam ED Vital Signs: Vital Signs - 24 hr 09/13/22 14:26 09/13/22 16:15 Temperature 98 F Pulse Rate 90 91 Respiratory Rate 24 H 20 Blood Pressure 152/76 H 118/68 Pulse Oximetry 90 L 95 Oxygen Delivery Method Room Air Room Air BMI result Body Mass Index 31.4 Vital signs have been reviewed as normal and appeared to be correct. Blood pressure normal.? Heart rate normal.? Respiration rate normal. Temperature normal.? Oxygen saturation normal. Const Other: Appearance: Alert.?Oriented to person, place and time. No acute distress.?Normal affect. Eyes: Pupils equal, round and reactive to light.? ENT: Pharynx normal.?? Neck: Normal inspection.? Neck supple.?? CVS: Heart sounds normal. Normal heart rate and rhythm.? Pulses normal.?? Respiratory: No respiratory distress.? Lung sounds clear to auscultation bilaterally?? Abdomen: Soft and non-tender. Normoactive bowel sounds. No pulsatile mass.?? Skin: Skin warm and dry.? Normal skin color.? Normal skin turgor.?? Extremities: No lower extremity edema.? No calf ttp? Neuro: Moves all extremities spontaneously. Sensation intact bilaterally. CN II-XII intact. No focal neuro deficits. Ambulates with normal steady gait. Course Course Course Narrative: 47-year-old female presents for evaluation of ?low blood sugar. ? In triage the patient's glucose was found to be 38. She was given orange juice with sugar packets as well as a sandwich and cecilia marc. Plan to repeat glucose. Patient reports eating oatmeal earlier today but that was it. She denies any recent medication adjustments Medical Decision Making Medical Decision Making MDM Narrative: Patient is a 47-year-old female with past medical history of anxiety, depression, asthma, cardiomyopathy, CHF, insulin-dependent type 2 diabetes, DVT/PE, hypertension, hypothyroidism, irritable bowel syndrome, obstructive sleep apnea, pancreatitis, PTSD who presents to emergency department for evaluation of hypoglycemia. Patient had no precipitating symptoms. Currently she is asymptomatic. Upon arrival to the emergency department her glucose was 38, she was given food and drink, upon repeat glucose is 94. She is without tachycardia, she is not tremulous, no diaphoresis, no reported or observed anxiety, no irritability, denies dizziness. Hypoglycemia is likely secondary to taking insulin on an empty stomach and subsequently not eating following. At the time of my examination she is conscious alert and oriented x4, declining to have any serum labs obtained or urinalysis. She is feeling well and without any complaints she would like to be discharged home. Of note, she did have a chest x-ray obtained during rapid medical examination which appears with no acute abnormalities. She is without any chest pain, coughing, shortness of breath or difficulty breathing. She is ambulatory with a steady gait. Differential Diagnosis Differential Diagnoses: The differential diagnosis associated with the presentation includes (Delayed/ missed meal, medication error, infection, alcohol ingestion, CKD, malnutrition) Lab Data MDM Lab Attestation statement: I reviewed the patient's lab results. Labs: Lab Results 09/13/22 09/13/22 09/13/22 Range/Units 14:30 15:49 16:15 POC Glucose 38 L* 110 94 (60-115) mg/dL Independent Interpretation I performed an independent interpretation of an: Plain X-Ray Interpretation: I have personally interpreted chest x-ray and agree with radiologist impression. Radiology Impression Discussion of test interpretation with radiology: I have reviewed the radiologist's reading. Radiologist Impression: XR/XR chest 2V IMPRESSION: No acute abnormality. External Record Review External record reviewed: Inpatient record and Outpatient record Tests considered The following testing was considered but not selected: CBC, CMP, urinalysis to evaluate for leukocytosis/anemia, abnormal electrolytes, abnormal renal function, abnormal hepatic/biliary function, however patient declines and she is currently asymptomatic and declines further testing. Hypoglycemia most likely secondary to insulin administration. Discharge Plan Discharge Clinical Impression: Diabetes mellitus, type 2 Patient Disposition: Home, Self-Care Instructions: Type 2 Diabetes Management for Adults (ED) Additional Instructions: As we discussed, it is very important to be sure that you are not taking insulin on an empty stomach. If doing so you should be following insulin administration with something to eat and drink to prevent low blood sugar. Symptoms of low blood sugar are feeling shaky, palpitations, feeling sweaty, anxious, irritable, dizziness, confusion. You may return back to emergency department any new or worsening symptoms she or concerns. Please follow-up with your primary care provider accordingly for management of your diabetes Prescriptions: No Action (DME) FreeStyle [place] 2 [place] [facility] See Rx Instructions .ROUTE .MEDSUPPLY Qty: 1 0RF Rx Instructions: As directed (DME) pen needle, diabetic [BD Ultra-Fine Leslie Pen Needle] 32 gauge x 5/32 needle See Rx Instructions .ROUTE .MEDSUPPLY Qty: 100 11RF Rx Instructions: As directed three times a day atorvastatin 40 mg tablet 40 mg PO DAILY Qty: 30 6RF Farxiga 5 mg tablet 5 mg PO DAILY Qty: 30 0RF albuterol sulfate 2.5 mg /3 mL (0.083 %) Solution For Nebulization 2.5 mg inhalation QID PRN (Reason: Allergic Reaction) Qty: 3 0RF Trulicity 4.5 mg/0.5 mL pen injector 4.5 mg subcut FR furosemide 20 mg tablet 1 tab PO DAILY lisinopril 5 mg tablet 1 tab PO DAILY levothyroxine 75 mcg tablet 1 tab PO DAILY loratadine 10 mg tablet 1 tab PO DAILY metoprolol succinate 50 mg tablet extended release 24 hr 1 tab PO DAILY omeprazole 20 mg capsule,delayed release(DR/EC) 1 cap PO DAILY trazodone 50 mg tablet 1 tab PO BEDTIME risperidone 0.5 mg Tablet 0.5 mg PO BID PRN (Reason: PTSD sx, grounding sx) Qty: 14 2RF sertraline 100 mg tablet 1.5 tab PO QAM fluticasone propionate [Flovent HFA] 110 mcg/actuation HFA aerosol inhaler 2 puff inhalation BID medroxyprogesterone 10 mg tablet 1 tab PO DAILY clonazepam 1 mg tablet 0.5 tab PO BID PRN (Reason: anxiety) albuterol sulfate [ProAir HFA] 90 mcg/actuation HFA aerosol inhaler 2 puff inhalation Q4H PRN (Reason: Wheezing) warfarin 5 mg tablet 10 mg PO MOWEFR@1700 cefuroxime axetil 500 mg tablet 500 mg PO BID Qty: 10 0RF azithromycin 500 mg tablet 500 mg PO DAILY 3 Days Qty: 3 0RF warfarin 6 mg tablet 6 mg PO 4XW Qty: 14 0RF Rx Instructions: on tuesday,tuesday,tuesday and -take warfarin 6 mg by mouth Toujeo Max U-300 SoloStar 300 unit/mL (3 mL) insulin pen 40 unit subcut BEDTIME 30 Days Qty: 6 4RF insulin lispro [Humalog KwikPen Insulin] 100 unit/mL insulin pen See Rx Instructions subcut TIDWMEAL Qty: 15 6RF Rx Instructions: 8 u shake, 12 u small meal, 16 u lreg/lrg meal subcutaneously 3 times per day with meals; metformin 1,000 mg tablet 1,000 mg PO BID 90 Days Qty: 180 1RF (DME) FreeStyle Shelby 2 Sensor Kit See Rx Instructions .ROUTE .MEDSUPPLY Qty: 2 11RF Rx Instructions: As directed every 2 weeks Referrals: Maria Guadalupe Severino MD [Primary Care Provider] - Interventions: ED Discharge Assessment Last Done: 09/13/22 17:28 Discharge Date/Time: 09/13/22 17:29
[2022-09-13 14:36] LABS: Glucose, Whole Blood 38 mg/dL (60-115)
[2022-09-13 15:54] LABS: Glucose, Whole Blood 110 mg/dL (60-115)
[2022-09-13 16:15] VITALS: BP 118/68; PULSE 91; RESP 20; O2SAT 95
[2022-09-13 16:21] LABS: Glucose, Whole Blood 94 mg/dL (60-115)
== END 2022-09-13 17:29 | disposition home or self-care (01) ==
PROVIDERS: Emergency Provider Emergency Medicine; PCP Internal Medicine
DX: E11.649 Type 2 diabetes mellitus with hypoglycemia without coma (principal); R25.1 Tremor, unspecified; R07.89 Other chest pain; Z79.4 Long term (current) use of insulin; Z79.899 Other long term (current) drug therapy; Z87.891 Personal history of nicotine dependence
CPT/HCPCS: 71046; 82947; 99283; 99284

== ENCOUNTER 2022-12-07 13:32 | Emergency (ER) | payer OTHER, SELFPAY ==
[2022-12-07] VITALS (9 sets, daily range): BP systolic 101–156; BP diastolic 65–82; PULSE 73–100; RESP 16–20; TEMP 36.8–37.1; O2SAT 88–97; BMI 55.0
--- NOTE | 2022-12-07 13:41 | ECG_ITS ---
Test Reason : SOB Blood Pressure : / mmHG Vent. Rate : 090 BPM Atrial Rate : 090 BPM P-R Int : 166 ms QRS Dur : 076 ms QT Int : 384 ms P-R-T Axes : 054 108 099 degrees QTc Int : 469 ms Normal sinus rhythm Rightward axis Cannot rule out Anterior infarct , age undetermined Abnormal ECG When compared with ECG of 19-MAY-2022 17:15, Minimal criteria for Anterior infarct are now Present Referred By: Carmel Knott Electronically Signed By:MARTIN CASTRO
--- NOTE | 2022-12-07 14:05 | ED_ITS ---
HPI - General Adult General Chief complaint: Chest Pain Stated complaint: CP,DIZZINESS,DIARRHEA X 3DAYS Time Seen by Provider: 12/07/22 17:35 Related Data Home Medications Medication Instructions Recorded Confirmed dulaglutide 4.5 mg/0.5 mL 4.5 mg subcut FR 03/24/21 12/13/22 subcutaneous pen injector (Trulicity) furosemide 20 mg tablet 1 tab PO DAILY 05/26/21 12/13/22 levothyroxine 75 mcg tablet 1 tab PO DAILY 05/26/21 12/13/22 lisinopril 5 mg tablet 1 tab PO DAILY 05/26/21 12/13/22 loratadine 10 mg tablet 1 tab PO DAILY 05/26/21 12/13/22 metoprolol succinate 50 mg 1 tab PO DAILY 05/26/21 12/13/22 tablet,extended release 24 hr omeprazole 20 mg capsule,delayed 1 cap PO DAILY 05/26/21 12/13/22 release trazodone 50 mg tablet 1 tab PO BEDTIME 05/26/21 12/13/22 clonazepam 1 mg tablet 0.5 tab PO BID PRN anxiety 07/14/21 12/13/22 medroxyprogesterone 10 mg tablet 1 tab PO DAILY 07/14/21 12/13/22 warfarin 5 mg tablet 10 mg PO MOWEFR@1700 07/14/21 12/13/22 sertraline 100 mg tablet 1.5 tab PO QAM 07/22/21 12/13/22 dapagliflozin propanediol 5 mg 5 mg PO DAILY 12/13/22 12/13/22 tablet (Farxiga) ferrous sulfate 325 mg (65 mg 325 mg PO QAM 12/13/22 12/13/22 iron) tablet,delayed release insulin glargine U-300 conc 300 46 unit subcut QPM 12/13/22 12/13/22 unit/mL (3 mL) subcutaneous pen (Toujeo Max U-300 SoloStar) Previous Rx's Medication Instructions Recorded risperidone 0.5 mg tablet 0.5 mg PO BID PRN PTSD sx, 06/05/21 grounding sx #14 tabs flash glucose sensor (FreeStyle #2 ea 06/23/21 Shelby 2 Sensor kit) flash glucose scanning reader #1 ea 07/22/21 (FreeStyle [place] 2 [place]) pen needle, diabetic 32 gauge x #100 ea 09/04/2132 (BD Ultra-Fine Leslie Pen Needle) insulin lispro 100 unit/mL See Rx Instructions subcut 09/22/21 subcutaneous pen (Humalog KwikPen TIDWMEAL #15 mL (U-100) Insulin) metformin 1,000 mg tablet 1,000 mg PO BID 90 days #180 tabs 09/22/21 warfarin 6 mg tablet 6 mg PO 4XW #14 tabs 05/24/22 loperamide 2 mg capsule 2 mg PO Q4H PRN loose stool #10 12/07/22 caps Allergies Allergy/AdvReac Type Severity Reaction Status Date / Time Penicillins [PENICILLINS] Allergy Intermediate HIVES Verified 09/22/21 14:56 egg [Egg] Allergy Mild SWELLING Verified 09/22/21 14:56 aspirin Allergy Unknown Unknown Verified 09/22/21 14:56 bee pollen [BEE STINGS] Allergy Unknown UNKNOWN Verified 09/22/21 14:56 lactose [LACTOSE] Allergy Unknown UNKNOWN Verified 09/22/21 14:56 latex [LATEX] Allergy Unknown HIVES Verified 09/22/21 14:56 oxycodone Allergy Unknown Unknown Verified 09/22/21 14:56 peanut [PEANUT] Allergy Unknown UNKNOWN Verified 09/22/21 14:56 penicillin V Allergy Unknown Unknown Verified 09/22/21 14:56 kiwi Allergy Anaphylaxis Verified 09/22/21 14:56 eggs,bees,latex,peanuts Allergy Unknown Unknown Uncoded 09/22/21 14:56 medical tape Allergy Unknown Unknown Uncoded 09/22/21 14:56 TAPE,PLASTIC Allergy Unknown RASH Uncoded 09/22/21 14:56 [facility] Past Medical History Medical History Recurrent major depression PTSD (post-traumatic stress disorder) Acute hyperglycemia Proteinuria Obesity due to excess calories Hyperlipidemia LDL goal <70 Cardiomyopathy DVT (deep vein thrombosis) in Gallstones ROGERIO (obstructive sleep apnea) Pancreatitis BMI 50.0-59.9, adult Essential hypertension Diabetes type 2, uncontrolled Diabetes mellitus, type 2 CHF (congestive heart failure) Mood disorder Irritable bowel Hypothyroidism Depression Anxiety PTSD (post-traumatic stress disorder) Asthma Hypertension Pulmonary embolism Surgical History History of dental surgery History of open heart surgery Hx of removal of cyst Hx of hernia repair Family History Family History Paternal Grandmother Diabetes Social History Social History 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 Do you presently have visiting nurse or other home services: Yes Unable to assess alcohol history related to: Refusing to respond Alcohol intake: current Alcohol intake frequency: holidays/special occasions only Patient Tobacco Use Status: Former Tobacco user Tobacco use type: Cigarette Smoked in Last 30 Days: No e-Cigarette/Vaping Use: Never Used Second Hand Smoke Exposure: Yes Use of substances other than those prescribed or required for medical reasons: Yes Substance Use Type: Marijuana Advance Directives: No Advance Directives Information Provided: Yes Healthcare Proxy: No Guardian: No service: No Current occupational status: disabled Sexual orientation: Lesbian/Good/Homosexual Physical Exam ED Vital Signs: Vital Signs - 24 hr 12/07/22 14:05 12/07/22 17:46 12/07/22 17:49 Temperature 98.2 F 98.3 F Pulse Rate 90 73 83 Respiratory Rate 18 20 Blood Pressure 136/65 156/82 H 126/78 Pulse Oximetry 92 91 L Oxygen Delivery Method Nasal Cannula Nasal Cannula Oxygen Flow Rate 2 12/07/22 17:52 12/07/22 17:54 12/07/22 20:00 Temperature 98.8 F Pulse Rate 82 88 84 Respiratory Rate 16 Blood Pressure 131/67 130/67 127/76 Pulse Oximetry 94 Oxygen Delivery Method Room Air Oxygen Flow Rate 12/07/22 22:05 12/07/22 22:07 Temperature 98.6 F Pulse Rate 82 Respiratory Rate 18 Blood Pressure 109/72 Pulse Oximetry 88 L 97 Oxygen Delivery Method Room Air Nasal Cannula Oxygen Flow Rate 2 BMI result Body Mass Index 55.0 Course Course Course Narrative: RME: 47yo F w/PMHx CHF, PTSD, HLD, diabetes, HTN, CHF, asthma, diabetes, on O2 as needed presenting to the ED via EMS c/o CP, lightheadedness & nonbloody diarrhea x 3 days. Also reports mild SOB. denies fever, N/V Patient on nasal cannula in triage applied by EMS per patient request EKG, labs, UA, viral testing ordered Full HPI, ROS and PE to be performed by primary ED provider. Medical Decision Making Lab Data 12/07/22 15:39 12/07/22 15:39 Labs: Lab Results 12/07/22 12/07/22 12/07/22 Range/Units 15:39 21:41 21:43 WBC 9.1 (4.8-10.8) X10*3/uL RBC 5.32 (4.20-5.50) X10*6/uL Hgb 15.4 (12.0-16.0) g/dl Hct 47.5 H (37.0-47.0) % MCV 89.3 (80.0-98.0) fL MCH 28.9 (27.0-33.0) pg MCHC 32.4 (31.0-35.0) g/dl RDW 16.1 H (11.0-16.0) % Plt Count 290 D (160-400) X10*3/uL MPV 10.3 (9.4-12.3) fL Immature Gran % (Auto) 0.2 (0.0-0.4) % Neut % (Auto) 66.1 (45-73) % Lymph % (Auto) 25.2 (20-40) % Jones % (Auto) 6.2 (2-11) % Eos % (Auto) 1.6 (0-4) % Baso % (Auto) 0.7 (0-2) % Lymph # (Auto) 2.3 (1.2-4.9) X10*3/uL Jones # (Auto) 0.6 (0.1-1.2) X10*3/uL Eos # (Auto) 0.2 (0.0-0.4) X10*3/uL Baso # (Auto) 0.1 (0.0-0.2) X10*3/uL Abs Immat Gran (auto) 0.02 (0.00-0.03) X10*3/uL Absolute Neuts (auto) 6.0 (2.0-8.3) x10*3/uL Absolute Nucleated RBC 0.000 (0.0-0.012) X10*3/uL Nucleated RBC % (auto) 0.0 (0.0-0.2) /100WBC Sodium 141 (135-145) mmol/L Potassium 4.1 (3.3-5.1) mmol/L Chloride 103 (96-108) mmol/L Carbon Dioxide 30 H (22-29) mmol/L Anion Gap 12 (12-20) BUN 10 (9-16) mg/dL Creatinine 0.86 (0.5-1.4) mg/dL Estim Creat Clear Calc 127.1 Estimated GFR > 60 POC Glucose 130 H (60-115) mg/dL Random Glucose 101 (60-115) mg/dL Calcium 10.3 H D (8.4-10.2) mg/dL Magnesium 1.8 (1.6-2.6) mg/dL Total Bilirubin 0.6 (0.0-1.0) mg/dL Direct Bilirubin 0.2 (0.0-0.5) mg/dL AST 16 (5-31) U/L ALT 15 (0-31) U/L Alkaline Phosphatase 73 (39-117) U/L Troponin I High Sens < 2.7 (<3.5-17.0) ng/L Total Protein 7.9 (6.5-8.0) g/dL Albumin 4.1 (3.5-5.0) g/dL Lipase 14 (8-78) U/L Urine Color Yellow Urine Appearance Clear Urine pH 6.5 (5.0-9.0) Ur Specific [place] 1.020 (1.005-1.025) Urine Protein Negative (Neg-Trace) mg/dL Urine Glucose (UA) >=1000 H (Negative) mg/dL Urine Ketones Negative (Negative) mg/dL Urine Blood Negative (Negative) Urine Nitrite Negative (Negative) Ur Leukocyte Esterase Negative (Negative) Urine RBC 0-2 (0-2) /HPF Urine WBC 0-5 (0-5) /HPF Ur Squamous Epith Cells 3-5 (0-2) /HPF Urine Bacteria None Seen (None Seen) Hyaline Casts 0-2 (0-2) /LPF Urine Test NEGATIVE (NEGATIVE) COVID-19 ([place]) Negative (Negative) COVID-19 Clin Com See Note Discharge Plan Discharge Clinical Impression: Diarrhea, Chest discomfort Patient Disposition: Home, Self-Care Instructions: Chest Pain (ED), Acute Diarrhea (ED) Additional Instructions: Please follow-up with your primary care physician tomorrow. If you have any worsening or new symptoms, please return to the emergency room or call 911 Prescriptions: New loperamide 2 mg capsule 2 mg PO Q4H PRN (Reason: loose stool) Qty: 10 0RF Rx Instructions: administer after each loose stool until symptoms controlled; do not exceed 8 mg per 24 hrs No Action (DME) FreeStyle [place] 2 [place] [facility] [place] Instructions .ROUTE .MEDSUPPLY Qty: 1 0RF Rx Instructions: As directed (DME) pen needle, diabetic [BD Ultra-Fine Leslie Pen Needle] 32 gauge x 5/32 needle See Rx Instructions .ROUTE .MEDSUPPLY Qty: 100 11RF Rx Instructions: As directed three times a day Trulicity 4.5 mg/0.5 mL pen injector 4.5 mg subcut FR furosemide 20 mg tablet 1 tab PO DAILY lisinopril 5 mg tablet 1 tab PO DAILY levothyroxine 75 mcg tablet 1 tab PO DAILY loratadine 10 mg tablet 1 tab PO DAILY metoprolol succinate 50 mg tablet extended release 24 hr 1 tab PO DAILY omeprazole 20 mg capsule,delayed release(DR/EC) 1 cap PO DAILY trazodone 50 mg tablet 1 tab PO BEDTIME risperidone 0.5 mg Tablet 0.5 mg PO BID PRN (Reason: PTSD sx, grounding sx) Qty: 14 2RF sertraline 100 mg tablet 1.5 tab PO QAM medroxyprogesterone 10 mg tablet 1 tab PO DAILY clonazepam 1 mg tablet 0.5 tab PO BID PRN (Reason: anxiety) warfarin 5 mg tablet 10 mg PO MOWEFR@1700 warfarin 6 mg tablet 6 mg PO 4XW Qty: 14 0RF Rx Instructions: on tuesday,tuesday,tuesday and -take warfarin 6 mg by mouth ferrous sulfate 325 mg (65 mg iron) tablet,delayed release (DR/EC) 325 mg PO QAM Farxiga 5 mg tablet 5 mg PO DAILY Toujeo Max U-300 SoloStar 300 unit/mL (3 mL) insulin pen 46 unit subcut QPM insulin lispro [Humalog KwikPen Insulin] 100 unit/mL insulin pen See Rx Instructions subcut TIDWMEAL Qty: 15 6RF Rx Instructions: 8 u shake, 12 u small meal, 16 u lreg/lrg meal subcutaneously 3 times per day with meals; metformin 1,000 mg tablet 1,000 mg PO BID 90 Days Qty: 180 1RF (DME) FreeStyle [place] 2 Sensor Kit See Rx Instructions .ROUTE .MEDSUPPLY Qty: 2 11RF Rx Instructions: As directed every 2 weeks Interventions: ED Discharge Assessment Last Done: 12/07/22 23:37 Discharge Date/Time: 12/07/22 23:40
[2022-12-07 15:44] LABS: MANUAL DIFF FLAG NO
[2022-12-07 15:46] LABS: Basophils Absolute Auto 0.1 X10*3/uL (0.0-0.2); Basophils Percent Auto 0.7 % (0-2); Eosinophils Absolute Auto 0.2 X10*3/uL (0.0-0.4); Eosinophils Percent Auto 1.6 % (0-4); Hematocrit 47.5 % (37.0-47.0); Hemoglobin 15.4 g/dl (12.0-16.0); Imm Gran Abs Auto 0.02 X10*3/uL (0.00-0.03); Imm Gran Pct Auto 0.2 % (0.0-0.4); Lymphocytes Absolute Auto 2.3 X10*3/uL (1.2-4.9); Lymphocytes Percent Auto 25.2 % (20-40); Mean Corpuscular HGB Conc 32.4 g/dl (31.0-35.0); Mean Corpuscular Hemoglobin 28.9 pg (27.0-33.0); Mean Corpuscular Volume 89.3 fL (80.0-98.0); Mean Platelet Volume 10.3 fL (9.4-12.3); Monocytes Absolute Auto 0.6 X10*3/uL (0.1-1.2); Monocytes Percent Auto 6.2 % (2-11); Neutrophils Percent Auto 66.1 % (45-73); Platelet Count 290 X10*3/uL (160-400); Red Blood Count 5.32 X10*6/uL (4.20-5.50); Red Cell Distribution Width 16.1 % (11.0-16.0); White Blood Count 9.1 X10*3/uL (4.8-10.8)
[2022-12-07 15:58] LABS: COVID-19 Test Negative (Negative); IDNOW Serial# 6674DD1D
[2022-12-07 15:59] LABS: Alanine Aminotransferase 15 U/L (0-31); Albumin Level 4.1 g/dL (3.5-5.0); Alkaline Phosphatase 73 U/L (39-117); Anion Gap 12 (12-20); Aspartate Amino Transferase 16 U/L (5-31); Bilirubin Direct 0.2 mg/dL (0.0-0.5); Bilirubin Total 0.6 mg/dL (0.0-1.0); Blood Urea Nitrogen 10 mg/dL (9-16); Calcium 10.3 mg/dL (8.4-10.2); Carbon Dioxide 30 mmol/L (22-29); Chloride 103 mmol/L (96-108); Creatinine Clr Calc Pharmacy 127.1; Estimated Glomerular Filt Rate > 60; Glucose Random 101 mg/dL (60-115); Lipase 14 U/L (8-78); Magnesium 1.8 mg/dL (1.6-2.6); Potassium 4.1 mmol/L (3.3-5.1); Sodium 141 mmol/L (135-145); Total Protein 7.9 g/dL (6.5-8.0)
[2022-12-07 16:07] LABS: Troponin-I High Sensitivity < 2.7 ng/L (<3.5-17.0)
--- NOTE | 2022-12-07 17:47 | ED_ITS ---
HPI - General Adult General Chief complaint: Chest Pain Stated complaint: CP,DIZZINESS,DIARRHEA X 3DAYS Time Seen by Provider: 12/07/22 17:35 Source: patient Mode of arrival: EMS Limitations: no limitations History of Present Illness HPI narrative: Patient comes to the emergency room complaining of 3 days of diarrhea, abdominal cramping, chest pain, dizziness. Patient describes dizziness as not feeling well. Patient denies room spinning, no lightheadedness. Patient states that any time that she eats, shortly after she has diarrhea. Denies nausea or vomiting. Denies fever chills, no URI or UTI symptoms. Related Data Home Medications Medication Instructions Recorded Confirmed dulaglutide 4.5 mg/0.5 mL 4.5 mg subcut FR 03/24/21 05/20/22 subcutaneous pen injector (Trulicity) furosemide 20 mg tablet 1 tab PO DAILY 05/26/21 05/20/22 levothyroxine 75 mcg tablet 1 tab PO DAILY 05/26/21 05/20/22 lisinopril 5 mg tablet 1 tab PO DAILY 05/26/21 05/20/22 loratadine 10 mg tablet 1 tab PO DAILY 05/26/21 05/20/22 metoprolol succinate 50 mg 1 tab PO DAILY 05/26/21 05/20/22 tablet,extended release 24 hr omeprazole 20 mg capsule,delayed 1 cap PO DAILY 05/26/21 05/20/22 release trazodone 50 mg tablet 1 tab PO BEDTIME 05/26/21 05/20/22 albuterol sulfate 90 mcg/actuation 2 puff inhalation Q4H PRN Wheezing 07/14/21 05/20/22 aerosol inhaler (ProAir HFA) clonazepam 1 mg tablet 0.5 tab PO BID PRN anxiety 07/14/21 05/20/22 medroxyprogesterone 10 mg tablet 1 tab PO DAILY 07/14/21 05/20/22 warfarin 5 mg tablet 10 mg PO MOWEFR@1700 07/14/21 05/20/22 fluticasone propionate 110 2 puff inhalation BID 07/22/21 05/20/22 mcg/actuation HFA aerosol inhaler (Flovent HFA) sertraline 100 mg tablet 1.5 tab PO QAM 07/22/21 05/20/22 Previous Rx's Medication Instructions Recorded albuterol sulfate 2.5 mg/3 mL 2.5 mg (3 mL) inhalation QID PRN 11/17/20 (0.083 %) solution for nebulization Allergic Reaction #3 mL risperidone 0.5 mg tablet 0.5 mg PO BID PRN PTSD sx, 06/05/21 grounding sx #14 tabs flash glucose sensor (FreeStyle #2 ea 06/23/21 Shelby 2 Sensor kit) flash glucose scanning reader #1 ea 07/22/21 (FreeStyle [place] 2 [place]) pen needle, diabetic 32 gauge x #100 ea 09/04/21 (BD Ultra-Fine Leslie Pen Needle) insulin glargine U-300 conc 300 40 unit (0.1333 mL) subcut BEDTIME 09/22/21 unit/mL (3 mL) subcutaneous pen 30 days #6 mL (Toujeo Max U-300 SoloStar) insulin lispro 100 unit/mL See Rx Instructions subcut 09/22/21 subcutaneous pen (Humalog KwikPen TIDWMEAL #15 mL (U-100) Insulin) metformin 1,000 mg tablet 1,000 mg PO BID 90 days #180 tabs 09/22/21 atorvastatin 40 mg tablet 40 mg PO DAILY #30 tabs 10/26/21 dapagliflozin propanediol 5 mg 5 mg PO DAILY #30 tabs 01/05/22 tablet (Farxiga) azithromycin 500 mg tablet 500 mg PO DAILY 3 days #3 tabs 05/24/22 cefuroxime axetil 500 mg tablet 500 mg PO BID #10 tabs 05/24/22 warfarin 6 mg tablet 6 mg PO 4XW #14 tabs 05/24/22 loperamide 2 mg capsule 2 mg PO Q4H PRN loose stool #10 12/07/22 caps Allergies Allergy/AdvReac Type Severity Reaction Status Date / Time Penicillins [PENICILLINS] Allergy Intermediate HIVES Verified 09/22/21 14:56 egg [Egg] Allergy Mild SWELLING Verified 09/22/21 14:56 aspirin Allergy Unknown Unknown Verified 09/22/21 14:56 bee pollen [BEE STINGS] Allergy Unknown UNKNOWN Verified 09/22/21 14:56 lactose [LACTOSE] Allergy Unknown UNKNOWN Verified 09/22/21 14:56 latex [LATEX] Allergy Unknown HIVES Verified 09/22/21 14:56 oxycodone Allergy Unknown Unknown Verified 09/22/21 14:56 peanut [PEANUT] Allergy Unknown UNKNOWN Verified 09/22/21 14:56 penicillin V Allergy Unknown Unknown Verified 09/22/21 14:56 kiwi Allergy Anaphylaxis Verified 09/22/21 14:56 eggs,bees,latex,peanuts Allergy Unknown Unknown Uncoded 09/22/21 14:56 medical tape Allergy Unknown Unknown Uncoded 09/22/21 14:56 TAPE,PLASTIC Allergy Unknown RASH Uncoded 09/22/21 14:56 Review of Systems 2 Review of Systems: Constitutional : No Weight loss, No Fever, No Chills, No Night Sweats, No Fatigue, complaining of generalized malaise ENT/Mouth : No Hearing loss, No Ear Pain, No Nasal Congestion, No Sinus Pain, No Hoarseness, No sore throat, No Rhinorrhea, No Swallowing Difficulty Eyes: No Eye Pain, No Swelling, No Redness, No Foreign Body, No Discharge, No Vision Changes Cardiovascular : 3 days of constant chest discomfort and body aches,, No SOB, No Dyspnea on Exertion, No Orthopnea, No Edema, No Palpitations Respiratory : No Cough, No Sputum, No Wheezing, No Smoke Exposure, No Dyspnea Gastrointestinal : No Nausea, No Vomiting, complaining of diarrhea and abdominal cramping Genitourinary : no irregular bleeding, No Dysuria, No Urinary Frequency, No Hematuria, No Urinary Incontinence, No Urgency, No Flank Pain, No Urinary Flow Changes, No Hesitancy Musculoskeletal : No joint pain, No Myalgias, No Joint Swelling Skin : No Skin Lesions, No rash Neuro : No Weakness, No Numbness, No Paresthesias, No Loss of Consciousness, No Dizziness, No Headache Psych : No Anxiety/Panic, No Depression, No SI/HI/AH/VH, No Social Issues, Heme/Lymph: No Bruising, No Bleeding,No Lymphadenopathy Endocrine : No Polyuria, No Polydipsia, No Temperature Intolerance PMFSH Past Medical History Medical History Recurrent major depression PTSD (post-traumatic stress disorder) Acute hyperglycemia Proteinuria Obesity due to excess calories Hyperlipidemia LDL goal <70 Cardiomyopathy DVT (deep vein thrombosis) in Gallstones ROGERIO (obstructive sleep apnea) Pancreatitis BMI 50.0-59.9, adult Essential hypertension Diabetes type 2, uncontrolled Diabetes mellitus, type 2 CHF (congestive heart failure) Mood disorder Irritable bowel Hypothyroidism Depression Anxiety PTSD (post-traumatic stress disorder) Asthma Hypertension Pulmonary embolism Surgical History History of dental surgery History of open heart surgery Hx of hernia repair Hx of removal of cyst Family History Family History Paternal Grandmother Diabetes Social History Social History Household Members: Caregiver Housing: Apartment Housing 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 Do you presently have visiting nurse or other home services: Yes Unable to assess alcohol history related to: Refusing to respond Alcohol intake: never Patient Tobacco Use Status: Former Tobacco user Tobacco use type: Cigarette e-Cigarette/Vaping Use: Never Used Second Hand Smoke Exposure: Yes Substance Use Type: Marijuana Advance Directives: No Advance Directives Information Provided: No service: No Current occupational status: disabled Sexual orientation: Lesbian/Good/Homosexual Physical Exam ED Vital Signs: Vital Signs - 24 hr 12/07/22 14:05 12/07/22 17:46 12/07/22 17:49 Temperature 98.2 F 98.3 F Pulse Rate 90 73 83 Respiratory Rate 18 20 Blood Pressure 136/65 156/82 H 126/78 Pulse Oximetry 92 91 L Oxygen Delivery Method Nasal Cannula Nasal Cannula Oxygen Flow Rate 2 12/07/22 17:52 12/07/22 17:54 12/07/22 20:00 Temperature 98.8 F Pulse Rate 82 88 84 Respiratory Rate 16 Blood Pressure 131/67 130/67 127/76 Pulse Oximetry 94 Oxygen Delivery Method Room Air Oxygen Flow Rate 12/07/22 22:05 12/07/22 22:07 Temperature 98.6 F Pulse Rate 82 Respiratory Rate 18 Blood Pressure 109/72 Pulse Oximetry 88 L 97 Oxygen Delivery Method Room Air Nasal Cannula Oxygen Flow Rate 2 BMI result Body Mass Index 55.0 Const Other: Appearance: Alert. Oriented X3. No acute distress. Morbidly obese Eyes: Pupils equal, round and reactive to light. ENT: Pharynx normal. Neck: Normal inspection. Neck supple. No lymph nodes noted. No crepitus CVS: Normal heart rate and rhythm. Pulses normal. Normal S1 and S2 Respiratory: No respiratory distress. Breath sounds normal. No Wheezing. No rales Abdomen: Soft and nontender. No rigidity. No distention. No guarding, rebound Skin: Skin warm and dry. Normal skin color. Normal skin turgor. Extremities: No lower extremity edema. No Lacerations. No Rash Neuro: Oriented X 3. No motor deficit. No sensory deficit. Moving all extremities. No slurred speech. CN 2 through 12 grossly intact Psych: calm, cooperative, normal affect Medical Decision Making Medical Decision Making [facility] Narrative: -interpretation of labs: No significant acute abnormality. -urinalysis negative for UTI -patient has not had any episodes of diarrhea in the emergency room, likely viral gastroenteritis. -on physical exam, patient has no abdominal pain, imaging not indicated Differential Diagnosis Differential Diagnoses: The differential diagnosis associated with the presentation includes (Gastroenteritis, gastritis, colitis) Admission/Observation Consideration of admission/observation: Escalation of care including admission/observation considered (Patient came complaining of diarrhea, feeling dehydrated, admission was considered) Lab Data [facility] Lab Attestation statement: I reviewed the patient's lab results. 12/07/22 15:39 12/07/22 15:39 Labs: Lab Results 12/07/22 12/07/22 12/07/22 Range/Units 15:39 21:41 21:43 WBC 9.1 (4.8-10.8) X10*3/uL RBC 5.32 (4.20-5.50) X10*6/uL Hgb 15.4 (12.0-16.0) g/dl Hct 47.5 H (37.0-47.0) % MCV 89.3 (80.0-98.0) fL MCH 28.9 (27.0-33.0) pg MCHC 32.4 (31.0-35.0) g/dl RDW 16.1 H (11.0-16.0) % Plt Count 290 D (160-400) X10*3/uL MPV 10.3 (9.4-12.3) fL Immature Gran % (Auto) 0.2 (0.0-0.4) % Neut % (Auto) 66.1 (45-73) % Lymph % (Auto) 25.2 (20-40) % Wilkinson % (Auto) 6.2 (2-11) % Eos % (Auto) 1.6 (0-4) % Baso % (Auto) 0.7 (0-2) % Lymph # (Auto) 2.3 (1.2-4.9) X10*3/uL Wilkinson # (Auto) 0.6 (0.1-1.2) X10*3/uL Eos # (Auto) 0.2 (0.0-0.4) X10*3/uL Baso # (Auto) 0.1 (0.0-0.2) X10*3/uL Abs Immat Gran (auto) 0.02 (0.00-0.03) X10*3/uL Absolute Neuts (auto) 6.0 (2.0-8.3) x10*3/uL Absolute Nucleated RBC 0.000 (0.0-0.012) X10*3/uL Nucleated RBC % (auto) 0.0 (0.0-0.2) /100WBC Sodium 141 (135-145) mmol/L Potassium 4.1 (3.3-5.1) mmol/L Chloride 103 (96-108) mmol/L Carbon Dioxide 30 H (22-29) mmol/L Anion Gap 12 (12-20) BUN 10 (9-16) mg/dL Creatinine 0.86 (0.5-1.4) mg/dL Estim Creat Clear Calc 127.1 Estimated GFR > 60 POC Glucose 130 H (60-115) mg/dL Random Glucose 101 (60-115) mg/dL Calcium 10.3 H D (8.4-10.2) mg/dL Magnesium 1.8 (1.6-2.6) mg/dL Total Bilirubin 0.6 (0.0-1.0) mg/dL Direct Bilirubin 0.2 (0.0-0.5) mg/dL AST 16 (5-31) U/L ALT 15 (0-31) U/L Alkaline Phosphatase 73 (39-117) U/L Troponin I High Sens < 2.7 (<3.5-17.0) ng/L Total Protein 7.9 (6.5-8.0) g/dL Albumin 4.1 (3.5-5.0) g/dL Lipase 14 (8-78) U/L Urine Color Yellow Urine Appearance Clear Urine pH 6.5 (5.0-9.0) Ur Specific [place] 1.020 (1.005-1.025) Urine Protein Negative (Neg-Trace) mg/dL Urine Glucose (UA) >=1000 H (Negative) mg/dL Urine Ketones Negative (Negative) mg/dL Urine Blood Negative (Negative) Urine Nitrite Negative (Negative) Ur Leukocyte Esterase Negative (Negative) Urine Test NEGATIVE (NEGATIVE) COVID-19 ([facility]) Negative (Negative) COVID-19 Clin Com See Note Critical Care Time Critical Care Time Critical Care Time: Yes Total Critical Care Time: 45 Attestation: I have personally provided critical care time. Time includes review of lab data, radiology results, discussion with consultants, and monitoring for potential decompensation. Intervention performed as documented. Discharge Plan Discharge Clinical Impression: Diarrhea, Chest discomfort Patient Disposition: Home, Self-Care Instructions: Chest Pain (ED), Acute Diarrhea (ED) Additional Instructions: Please follow-up with your primary care physician tomorrow. If you have any worsening or new symptoms, please return to the emergency room or call 911 Prescriptions: New loperamide 2 mg capsule 2 mg PO Q4H PRN (Reason: loose stool) Qty: 10 0RF Rx Instructions: administer after each loose stool until symptoms controlled; do not exceed 8 mg per 24 hrs No Action (DME) FreeStyle [place] 2 [place] [facility] [place] See Rx Instructions .ROUTE .MEDSUPPLY Qty: 1 0RF Rx Instructions: As directed (DME) pen needle, diabetic [BD Ultra-Fine Leslie Pen Needle] 32 gauge x 5/32 needle See Rx Instructions .ROUTE .MEDSUPPLY Qty: 100 11RF Rx Instructions: As directed three times a day atorvastatin 40 mg tablet 40 mg PO DAILY Qty: 30 6RF Farxiga 5 mg tablet 5 mg PO DAILY Qty: 30 0RF albuterol sulfate 2.5 mg /3 mL (0.083 %) Solution For Nebulization 2.5 mg inhalation QID PRN (Reason: Allergic Reaction) Qty: 3 0RF Trulicity 4.5 mg/0.5 mL pen injector 4.5 mg subcut FR furosemide 20 mg tablet 1 tab PO DAILY lisinopril 5 mg tablet 1 tab PO DAILY levothyroxine 75 mcg tablet 1 tab PO DAILY loratadine 10 mg tablet 1 tab PO DAILY metoprolol succinate 50 mg tablet extended release 24 hr 1 tab PO DAILY omeprazole 20 mg capsule,delayed release(DR/EC) 1 cap PO DAILY trazodone 50 mg tablet 1 tab PO BEDTIME risperidone 0.5 mg Tablet 0.5 mg PO BID PRN (Reason: PTSD sx, grounding sx) Qty: 14 2RF sertraline 100 mg tablet 1.5 tab PO QAM fluticasone propionate [Flovent HFA] 110 mcg/actuation HFA aerosol inhaler 2 puff inhalation BID medroxyprogesterone 10 mg tablet 1 tab PO DAILY clonazepam 1 mg tablet 0.5 tab PO BID PRN (Reason: anxiety) albuterol sulfate [ProAir HFA] 90 mcg/actuation HFA aerosol inhaler 2 puff inhalation Q4H PRN (Reason: Wheezing) warfarin 5 mg tablet 10 mg PO MOWEFR@1700 cefuroxime axetil 500 mg tablet 500 mg PO BID Qty: 10 0RF azithromycin 500 mg tablet 500 mg PO DAILY 3 Days Qty: 3 0RF warfarin 6 mg tablet 6 mg PO 4XW Qty: 14 0RF Rx Instructions: on tuesday,tuesday,tuesday and -take warfarin 6 mg by mouth Toujeo Max U-300 SoloStar 300 unit/mL (3 mL) insulin pen 40 unit subcut BEDTIME 30 Days Qty: 6 4RF insulin lispro [Humalog KwikPen Insulin] 100 unit/mL insulin pen See Rx Instructions subcut TIDWMEAL Qty: 15 6RF Rx Instructions: 8 u shake, 12 u small meal, 16 u lreg/lrg meal subcutaneously 3 times per day with meals; metformin 1,000 mg tablet 1,000 mg PO BID 90 Days Qty: 180 1RF (DME) FreeStyle Shelby 2 Sensor Kit See Rx Instructions .ROUTE .MEDSUPPLY Qty: 2 11RF Rx Instructions: As directed every 2 weeks
--- NOTE | 2022-12-07 19:10 | PC.NURSE ---
assumed care of patient at 1900
--- NOTE | 2022-12-07 21:35 | PC.NURSE ---
pt ambulated to and from bathroom with steady gait to obtain urine sample
[2022-12-07 21:48] LABS: Glucose, Whole Blood 130 mg/dL (60-115)
[2022-12-07 21:49] LABS: Appearance Urine Clear; Color Urine Yellow; Glucose Urine UA >=1000 mg/dL (Negative); Leukocyte Esterase Urine Negative (Negative); Nitrite Urine Negative (Negative); PH 6.5 (5.0-9.0); UMIC TRIGGER UACC YES; Urine Blood Negative (Negative); Urine Ketones Negative (Negative); Urine Protein Negative (Neg-Trace)
[2022-12-07 21:54] LABS: UPreg QC Valid YES; Urine Pregnancy NEGATIVE (NEGATIVE)
--- NOTE | 2022-12-07 22:08 | MHC.EDTECH ---
Hourly rounds and vitals completed, patient's sats were 88% on room air, patient placed back on her o2 and is now at 97% on 2Lvnc. Patient was giving a turkey sandwich with a can of cecilia marc.
[2022-12-07 22:33] LABS: Bacteria Urine None Seen (None Seen); Hyaline Casts Urine 0-2 /LPF (0-2); RBC Urine 0-2 /HPF (0-2); WBC Urine 0-5 /HPF (0-5)
== END 2022-12-07 23:40 | disposition home or self-care (01) ==
PROVIDERS: Physician Assistant; Emergency Provider Emergency Medicine; PCP Internal Medicine
DX: R19.7 Diarrhea, unspecified (principal); R07.89 Other chest pain; Z20.822 Contact with and (suspected) exposure to COVID-19; E11.9 Type 2 diabetes mellitus without complications; I10 Essential (primary) hypertension; E78.5 Hyperlipidemia, unspecified; F12.90 Cannabis use, unspecified, uncomplicated; Z86.711 Personal history of pulmonary embolism; Z87.891 Personal history of nicotine dependence; Z79.01 Long term (current) use of anticoagulants; Z79.4 Long term (current) use of insulin; Z79.899 Other long term (current) drug therapy
CPT/HCPCS: 80048; 80076; 81001; 81025; 82947; 83690; 83735; 84484; 85025; 87635; 93005; 99283; 99284

== ENCOUNTER 2022-12-13 01:52 | Emergency (ER) | payer OTHER, SELFPAY ==
[2022-12-13 01:55] VITALS: BP 132/76; PULSE 98; O2SAT 95
[2022-12-13 02:11] VITALS: BP 142/93; PULSE 88; RESP 20; TEMP 37.1; O2SAT 96; BMI 57.0
[2022-12-13 03:29] LABS: MANUAL DIFF FLAG NO
[2022-12-13 03:30] LABS: Basophils Absolute Auto 0.1 X10*3/uL (0.0-0.2); Basophils Percent Auto 0.6 % (0-2); Eosinophils Absolute Auto 0.2 X10*3/uL (0.0-0.4); Eosinophils Percent Auto 2.1 % (0-4); Hematocrit 43.7 % (37.0-47.0); Hemoglobin 14.4 g/dl (12.0-16.0); Imm Gran Abs Auto 0.05 X10*3/uL (0.00-0.03); Imm Gran Pct Auto 0.5 % (0.0-0.4); Lymphocytes Absolute Auto 2.5 X10*3/uL (1.2-4.9); Lymphocytes Percent Auto 25.8 % (20-40); Mean Corpuscular Hemoglobin 29.1 pg (27.0-33.0); Mean Corpuscular Volume 88.5 fL (80.0-98.0); Mean Platelet Volume 10.2 fL (9.4-12.3); Monocytes Absolute Auto 0.6 X10*3/uL (0.1-1.2); Monocytes Percent Auto 6.6 % (2-11); Neutrophils Absolute Auto 6.2 x10*3/uL (2.0-8.3); Neutrophils Percent Auto 64.4 % (45-73); Platelet Count 236 X10*3/uL (160-400); Red Blood Count 4.94 X10*6/uL (4.20-5.50); White Blood Count 9.6 X10*3/uL (4.8-10.8)
[2022-12-13 03:32] LABS: Appearance Urine Clear; Color Urine Yellow; Glucose Urine UA 500 mg/dL (Negative); Leukocyte Esterase Urine Negative (Negative); Nitrite Urine Negative (Negative); Specific Gravity - Urine 1.015 (1.005-1.025); UMIC TRIGGER UA YES; Urine Blood Negative (Negative); Urine Ketones Negative (Negative); Urine Protein 30 (1+) mg/dL (Neg-Trace)
[2022-12-13 03:33] LABS: UPreg QC Valid YES; Urine Pregnancy NEGATIVE (NEGATIVE)
[2022-12-13 03:37] LABS: Bacteria Urine Trace (None Seen); Hyaline Casts Urine 0-2 /LPF (0-2); RBC Urine 0-2 /HPF (0-2); WBC Urine 0-5 /HPF (0-5)
[2022-12-13 03:40] LABS: Amphetamine Screen Urine Not Detected (Not Detect); Barbiturates, Urine Not Detected (Not Detect); Benzodiazepines Screen Urine Not Detected (Not Detect); Cannabinoid Screen Urine Not Detected (Not Detect); Cocaine Screen Urine Not Detected (Not Detect); Fentanyl, urine Not Detected (Not Detect); Opiate Screen Urine Not Detected (Not Detect); Phencyclidine Screen Urine Not Detected (Not Detect)
[2022-12-13 03:45] LABS: Acetaminophen LAB < 17 mcg/mL (<30); Alanine Aminotransferase 14 U/L (0-31); Albumin Level 3.8 g/dL (3.5-5.0); Alkaline Phosphatase 65 U/L (39-117); Anion Gap 14 (12-20); Aspartate Amino Transferase 15 U/L (5-31); Bilirubin Total 0.3 mg/dL (0.0-1.0); Blood Urea Nitrogen 12 mg/dL (9-16); Calcium 9.4 mg/dL (8.4-10.2); Carbon Dioxide 24 mmol/L (22-29); Chloride 106 mmol/L (96-108); Creatinine Clr Calc Pharmacy 106.4; Estimated Glomerular Filt Rate 57; Ethanol < 10 mg/dL; Glucose Random 100 mg/dL (60-115); Potassium 3.9 mmol/L (3.3-5.1); Salicylate < 5.0 mg/dL (15-30); Sodium 140 mmol/L (135-145); Total Protein 7.3 g/dL (6.5-8.0)
--- NOTE | 2022-12-13 04:50 | PC.NURSE ---
pt resting comfortably , calm and cooperative at this time. No acute medical or behavioral concerns at this time
--- NOTE | 2022-12-13 04:52 | PC.NURSE ---
per pt, wears 02 prn for sleep. pt placed on 2L per request. Lung sounds clear, no acute distress.
[2022-12-13 05:58] VITALS: BP 119/77; PULSE 88; RESP 16; O2SAT 94
--- NOTE | 2022-12-13 06:39 | ED.PSYCH ---
HPI - Psych General Chief Complaint: Psychiatric Symptoms Stated Complaint: SI Time Seen by Provider: 12/13/22 06:36 Source: patient, EMS, RN notes reviewed and old records reviewed Mode of arrival: EMS History of Present Illness HPI Narrative: 47-year-old female with a past medical history of depression, PTSD, HLD, cardiomyopathy, ROGERIO, pancreatitis, diabetes, HTN, CHF, mood disorder, DVT/ PE, asthma, p.r.n. O2, presenting to the ED via EMS complaining of mental health issues w/ suicidal ideations and increasing depression. Patient also reports auditory hallucinations with command voices. Reports history of self-harm, denies current plan or recent attempt/ self-harm. reports compliance with prescribed medications. Denies HI, visual hallucinations, ETOH/illicit drug use, CP/SOB, abdominal pain MD complaint: suicidal ideation and feels depressed Onset (ago): day(s) Related Data Home Medications Medication Instructions Recorded Confirmed dulaglutide 4.5 mg/0.5 mL 4.5 mg subcut FR 03/24/21 12/13/22 subcutaneous pen injector (Trulicity) furosemide 20 mg tablet 1 tab PO DAILY 05/26/21 12/13/22 levothyroxine 75 mcg tablet 1 tab PO DAILY 05/26/21 12/13/22 lisinopril 5 mg tablet 1 tab PO DAILY 05/26/21 12/13/22 loratadine 10 mg tablet 1 tab PO DAILY 05/26/21 12/13/22 metoprolol succinate 50 mg 1 tab PO DAILY 05/26/21 12/13/22 tablet,extended release 24 hr omeprazole 20 mg capsule,delayed 1 cap PO DAILY 05/26/21 12/13/22 release trazodone 50 mg tablet 1 tab PO BEDTIME 05/26/21 12/13/22 clonazepam 1 mg tablet 0.5 tab PO BID PRN anxiety 07/14/21 12/13/22 medroxyprogesterone 10 mg tablet 1 tab PO DAILY 07/14/21 12/13/22 warfarin 5 mg tablet 10 mg PO MOWEFR@1700 07/14/21 12/13/22 sertraline 100 mg tablet 1.5 tab PO QAM 07/22/21 12/13/22 dapagliflozin propanediol 5 mg 5 mg PO DAILY 12/13/22 12/13/22 tablet (Farxiga) ferrous sulfate 325 mg (65 mg 325 mg PO QAM 12/13/22 12/13/22 iron) tablet,delayed release insulin glargine U-300 conc 300 46 unit subcut QPM 12/13/22 12/13/22 unit/mL (3 mL) subcutaneous pen (Toujeo Max U-300 SoloStar) Previous Rx's Medication Instructions Recorded risperidone 0.5 mg tablet 0.5 mg PO BID PRN PTSD sx, 06/05/21 grounding sx #14 tabs flash glucose sensor (FreeStyle #2 ea 06/23/21 Shelby 2 Sensor kit) flash glucose scanning reader #1 ea 07/22/21 (FreeStyle [place] 2 [place]) pen needle, diabetic 32 gauge x #100 ea 09/04/21 (BD Ultra-Fine Leslie Pen Needle) insulin lispro 100 unit/mL See Rx Instructions subcut 09/22/21 subcutaneous pen (Humalog KwikPen TIDWMEAL #15 mL (U-100) Insulin) metformin 1,000 mg tablet 1,000 mg PO BID 90 days #180 tabs 09/22/21 warfarin 6 mg tablet 6 mg PO 4XW #14 tabs 05/24/22 loperamide 2 mg capsule 2 mg PO Q4H PRN loose stool #10 12/07/22 caps Allergies Allergy/AdvReac Type Severity Reaction Status Date / Time Penicillins [PENICILLINS] Allergy Intermediate HIVES Verified 09/22/21 14:56 egg [Egg] Allergy Mild SWELLING Verified 09/22/21 14:56 aspirin Allergy Unknown Unknown Verified 09/22/21 14:56 bee pollen [BEE STINGS] Allergy Unknown UNKNOWN Verified 09/22/21 14:56 lactose [LACTOSE] Allergy Unknown UNKNOWN Verified 09/22/21 14:56 latex [LATEX] Allergy Unknown HIVES Verified 09/22/21 14:56 oxycodone Allergy Unknown Unknown Verified 09/22/21 14:56 peanut [PEANUT] Allergy Unknown UNKNOWN Verified 09/22/21 14:56 penicillin V Allergy Unknown Unknown Verified 09/22/21 14:56 kiwi Allergy Anaphylaxis Verified 09/22/21 14:56 eggs,bees,latex,peanuts Allergy Unknown Unknown Uncoded 09/22/21 14:56 medical tape Allergy Unknown Unknown Uncoded 09/22/21 14:56 TAPE,PLASTIC Allergy Unknown RASH Uncoded 09/22/21 14:56 Review of Systems Review of Systems: Constitutional: No Fever, No Chills, No Fatigue, No Malaise ENT/Mouth: No Hearing loss, No Ear Pain, No Nasal Congestion, No sore throat, No Rhinorrhea, No Swallowing Difficulty Eyes: No Eye Pain, No Swelling, No Redness, No Vision Changes Cardiovascular: No Chest Pain, No SOB Respiratory: No Cough Gastrointestinal: No Nausea, No Vomiting, No Diarrhea, No Constipation, No Abdominal pain Genitourinary: No Dysuria, No Urinary Frequency, No Flank Pain Musculoskeletal: No joint pain, No Myalgias Skin: No Skin Lesions, No rash Neuro: No Weakness, No Headache Psych: No Anxiety/Panic, + Depression, + SI/AH, No HI/VH, + Social Issues Yes all other systems are reviewed and are negative Constitutional: Constitutional: Reports as per [facility] Past Medical History Attestation statement: The following information was validated with the patient. Source: old records reviewed Medical History Recurrent major depression PTSD (post-traumatic stress disorder) Acute hyperglycemia Proteinuria Obesity due to excess calories Hyperlipidemia LDL goal <70 Cardiomyopathy DVT (deep vein thrombosis) in Gallstones ROGERIO (obstructive sleep apnea) Pancreatitis BMI 50.0-59.9, adult Essential hypertension Diabetes type 2, uncontrolled Diabetes mellitus, type 2 CHF (congestive heart failure) Mood disorder Irritable bowel Hypothyroidism Depression Anxiety PTSD (post-traumatic stress disorder) Asthma Hypertension Pulmonary embolism Surgical History History of dental surgery History of open heart surgery Hx of removal of cyst Hx of hernia repair Family History Family History Paternal Grandmother Diabetes Social History Social History Household Members: Caregiver Housing: Apartment Housing Other:: Has SITE DIRECTOR twice a day. Do you presently have visiting nurse or other home services: Yes Unable to assess alcohol history related to: Refusing to respond Alcohol intake: current Alcohol intake frequency: holidays/special occasions only Patient Tobacco Use Status: Former Tobacco user Tobacco use type: Cigarette Smoked in Last 30 Days: No e-Cigarette/Vaping Use: Never Used Second Hand Smoke Exposure: Yes Use of substances other than those prescribed or required for medical reasons: Yes Substance Use Type: Marijuana Advance Directives: No Advance Directives Information Provided: Yes service: No Current occupational status: disabled Sexual orientation: Lesbian/Good/Homosexual Physical Exam Vital Signs: Vital Signs: Last Vital Signs Temp 98.7 F 12/13/22 02:11 Pulse 88 12/13/22 05:58 Resp 16 12/13/22 05:58 BP 119/77 12/13/22 05:58 Pulse Ox 94 12/13/22 05:58 O2 Del Method Nasal Cannula 12/13/22 05:58 O2 Flow Rate 2 12/13/22 05:58 Oxygen Flow Rate 2 12/13/22 02:11 BMI result Body Mass Index 57.0 Const: General: cooperative, healthy appearing and no acute distress Orientation/consciousness: patient oriented x3 Limitations: no limitations HEENT: Head: Yes normal to inspection and Yes atraumatic Ears: hearing grossly normal bilaterally General nose exam: Normal external nose present Face and sinus: Yes normal facial exam Eyes: General: appearance normal, both eyes and all related structures EOM: EOMs intact bilaterally Neck: Neck: Yes normal visual inspection and Yes no meningeal signs Resp: Effort & Inspection: normal respiratory effort and no respiratory distress Auscultation: clear to auscultation bilaterally Cardio: Rate: regular rate Heart sounds: S1 normal heart sound present and S2 normal heart sound present GI: Inspection: Yes normal to inspection Skin: Rashes: no rashes Wounds: no wounds Neuro: General: patient oriented x3, tone normal and no meningeal signs Cranial nerves: Yes CN's II-XII intact bilaterally Extrem: General: Yes normal to inspection Course Course Course Narrative: -0713-- lab reassuring. Tox screen negative. Patient medically cleared for CARE team evaluation. Physician observation initiated -1030--Patient was evaluated by CARE team and cleared for discharge, they spoke with outpatient providers Medical Decision Making Medical Decision Making MDM Narrative: 47-year-old female with a past medical history of depression, PTSD, HLD, cardiomyopathy, ROGERIO, pancreatitis, diabetes, HTN, CHF, mood disorder, DVT/ PE, asthma, p.r.n. O2, presenting to the ED via EMS complaining of mental health issues w/ suicidal ideations and increasing depression. On exam vital signs stable currently on nasal cannula while lying on stomach sleeping, NAD, nontoxic appearing, depressed with +SI w/o plan. Rule out organic causes Plan: Labs, tox screen, CARE team consult Please refer to course for remaining clinical decision making, interpretation of labs/imaging results, and discussions with consultants and/or family members. Differential Diagnosis Differential Diagnoses: The differential diagnosis associated with the presentation includes As above Admission/Observation Consideration of admission/observation: Escalation of care including admission/observation considered Consult Healthcare Provider Management of the patient was discussed with: Behavioral Health Provider Lab Data [facility] Lab Attestation statement: I reviewed the patient's lab results. 12/13/22 03:22 12/13/22 03:22 Labs: Lab Results 12/13/22 12/13/22 Range/Units 03:22 03:25 WBC 9.6 (4.8-10.8) X10*3/uL RBC 4.94 (4.20-5.50) X10*6/uL Hgb 14.4 (12.0-16.0) g/dl Hct 43.7 (37.0-47.0) % MCV 88.5 (80.0-98.0) fL MCH 29.1 (27.0-33.0) pg MCHC 33.0 (31.0-35.0) g/dl RDW 16.0 (11.0-16.0) % Plt Count 236 (160-400) X10*3/uL MPV 10.2 (9.4-12.3) fL Immature Gran % (Auto) 0.5 H (0.0-0.4) % Neut % (Auto) 64.4 (45-73) % Lymph % (Auto) 25.8 (20-40) % [place] % (Auto) 6.6 (2-11) % Eos % (Auto) 2.1 (0-4) % Baso % (Auto) 0.6 (0-2) % Lymph # (Auto) 2.5 (1.2-4.9) X10*3/uL [place] # (Auto) 0.6 (0.1-1.2) X10*3/uL Eos # (Auto) 0.2 (0.0-0.4) X10*3/uL Baso # (Auto) 0.1 (0.0-0.2) X10*3/uL Abs Immat Gran (auto) 0.05 H (0.00-0.03) X10*3/uL Absolute Neuts (auto) 6.2 (2.0-8.3) x10*3/uL Absolute Nucleated RBC 0.000 (0.0-0.012) X10*3/uL Nucleated RBC % (auto) 0.0 (0.0-0.2) /100WBC Sodium 140 (135-145) mmol/L Potassium 3.9 (3.3-5.1) mmol/L Chloride 106 (96-108) mmol/L Carbon Dioxide 24 (22-29) mmol/L Anion Gap 14 (12-20) BUN 12 (9-16) mg/dL Creatinine 1.05 (0.5-1.4) mg/dL Estim Creat Clear Calc 106.4 Estimated GFR 57 Random Glucose 100 (60-115) mg/dL Calcium 9.4 D (8.4-10.2) mg/dL Total Bilirubin 0.3 (0.0-1.0) mg/dL AST 15 (5-31) U/L ALT 14 (0-31) U/L Alkaline Phosphatase 65 (39-117) U/L Total Protein 7.3 (6.5-8.0) g/dL Albumin 3.8 (3.5-5.0) g/dL Urine Color Yellow Urine Appearance Clear Urine pH 6.0 (5.0-9.0) Ur Specific [place] 1.015 (1.005-1.025) Urine Protein 30 (1+) H (Neg-Trace) mg/dL Urine Glucose (UA) 500 H (Negative) mg/dL Urine Ketones Negative (Negative) mg/dL Urine Blood Negative (Negative) Urine Nitrite Negative (Negative) Ur Leukocyte Esterase Negative (Negative) Urine RBC 0-2 (0-2) /HPF Urine WBC 0-5 (0-5) /HPF Ur Squamous Epith Cells 3-5 (0-2) /HPF Urine Bacteria Trace (None Seen) Hyaline Casts 0-2 (0-2) /LPF Urine Test NEGATIVE (NEGATIVE) Salicylates < 5.0 L (15-30) mg/dL Urine Opiates Screen Not Detected (Not Detect) Urine Fentanyl Screen Not Detected (Not Detect) Acetaminophen < 17 (<30) mcg/mL Ur Barbiturates Screen Not Detected (Not Detect) Ur Phencyclidine Scrn Not Detected (Not Detect) Ur Amphetamines Screen Not Detected (Not Detect) U Benzodiazepines Scrn Not Detected (Not Detect) Urine Cocaine Screen Not Detected (Not Detect) U Marijuana (THC) Screen Not Detected (Not Detect) Ethyl Alcohol < 10 mg/dL Independent Historian Clinical information obtained from an independent historian. History obtained from or confirmed by: EMS External Record Review External record reviewed: Inpatient record, Office record, Outpatient record, Prior outpatient labs, Prior outpatient radiology, Primary care record and Outside ED record Tests considered The following testing was considered but not selected: As above Chronic Conditions Patient?s care impacted by: Diabetes and Hypertension Social Determinants Patient?s care significantly limited by Social Determinants of Health including: Low income, Problems related to primary support group and Other Social Determinant of Health Discharge Plan Discharge Clinical Impression: Suicidal ideation, Depression Patient Disposition: Home, Self-Care Instructions: Depression (DC), Suicide Prevention (ED) Additional Instructions: continue home medications Follow up with your providers If symptoms persist or worsen return to ED Prescriptions: No Action (DME) FreeStyle [place] 2 [place] Misc See Rx Instructions .ROUTE .MEDSUPPLY Qty: 1 0RF Rx Instructions: As directed (DME) pen needle, diabetic [BD Ultra-Fine Leslie Pen Needle] 32 gauge x 5/32 needle See Rx Instructions .ROUTE .MEDSUPPLY Qty: 100 11RF Rx Instructions: As directed three times a day Trulicity 4.5 mg/0.5 mL pen injector 4.5 mg subcut FR furosemide 20 mg tablet 1 tab PO DAILY lisinopril 5 mg tablet 1 tab PO DAILY levothyroxine 75 mcg tablet 1 tab PO DAILY loratadine 10 mg tablet 1 tab PO DAILY metoprolol succinate 50 mg tablet extended release 24 hr 1 tab PO DAILY omeprazole 20 mg capsule,delayed release(DR/EC) 1 cap PO DAILY trazodone 50 mg tablet 1 tab PO BEDTIME risperidone 0.5 mg Tablet 0.5 mg PO BID PRN (Reason: PTSD sx, grounding sx) Qty: 14 2RF sertraline 100 mg tablet 1.5 tab PO QAM medroxyprogesterone 10 mg tablet 1 tab PO DAILY clonazepam 1 mg tablet 0.5 tab PO BID PRN (Reason: anxiety) warfarin 5 mg tablet 10 mg PO MOWEFR@1700 warfarin 6 mg tablet 6 mg PO 4XW Qty: 14 0RF Rx Instructions: on tuesday,tuesday,tuesday and -take warfarin 6 mg by mouth ferrous sulfate 325 mg (65 mg iron) tablet,delayed release (DR/EC) 325 mg PO QAM Farxiga 5 mg tablet 5 mg PO DAILY Toujeo Max U-300 SoloStar 300 unit/mL (3 mL) insulin pen 46 unit subcut QPM loperamide 2 mg capsule 2 mg PO Q4H PRN (Reason: loose stool) Qty: 10 0RF Rx Instructions: administer after each loose stool until symptoms controlled; do not exceed 8 mg per 24 hrs insulin lispro [Humalog KwikPen Insulin] 100 unit/mL insulin pen See Rx Instructions subcut TIDWMEAL Qty: 15 6RF Rx Instructions: 8 u shake, 12 u small meal, 16 u lreg/lrg meal subcutaneously 3 times per day with meals; metformin 1,000 mg tablet 1,000 mg PO BID 90 Days Qty: 180 1RF (DME) FreeStyle [place] 2 Sensor Kit See Rx Instructions .ROUTE .MEDSUPPLY Qty: 2 11RF Rx Instructions: As directed every 2 weeks Referrals: [facility] [Provider Group] [facility] [Outside] Interventions: [place]-Suicide Risk Severity Scale Last Done: 12/13/22 02:46
--- NOTE | 2022-12-13 07:40 | PC.NURSE ---
Patient transferred to [facility] from main ED. Calm and cooperative, denies pain or discomfort. Reports thoughts of SI, denies HI
--- NOTE | 2022-12-13 10:24 | MHC.CARE ---
Patient evaluated by the CARE Team, she does not require an inpatient psychiatric admission; ED provider, updated and in agreement with plan to discharge home. Written assessment to follow.
--- NOTE | 2022-12-13 10:40 | PC.NURSE ---
Patient denies SI/HI. Good po intake for breakfast.
--- NOTE | 2022-12-13 10:55 | PC.NURSE ---
Patient stating not to call a uber for her, that her chd case hardener will pick her up and bring her to her regular therapy appointment
== END 2022-12-13 10:56 | disposition home or self-care (01) ==
PROVIDERS: Emergency Provider Emergency Medicine
DX: F33.1 Major depressive disorder, recurrent, moderate (principal); R45.851 Suicidal ideations; Z87.891 Personal history of nicotine dependence; Z79.899 Other long term (current) drug therapy
CPT/HCPCS: 36415; 80053; 80143; 80179; 80307; 81001; 81025; 85025; 99284; 99285; S9485

== ENCOUNTER 2023-01-25 12:42 | Inpatient (IN) | payer OTHER, SELFPAY ==
[2023-01-25] VITALS (7 sets, daily range): BP systolic 101–130; BP diastolic 50–88; PULSE 80–94; RESP 16–20; TEMP 36.9–37.2; O2SAT 85–97; BMI 53.7; BMI 56.5
--- NOTE | ~2023-01-25 | XR_ITS ---
EXAMINATION: XR CHEST CLINICAL INFORMATION: Cough COMPARISON: Portable chest 09/13/2022 TECHNIQUE: AP upright portable view of the chest was obtained. 13:49 FINDINGS: There is no significant interval change. The study is degraded by the patient's large body habitus and the portable technique. Lung volumes are low. There is no convincing focal consolidation, interstitial pulmonary edema or pneumothorax. The patient is status post median sternotomy. There is fracture of the most superior cerclage wire. The cardiomediastinal silhouette is stable. No obvious pleural effusions. The right costophrenic angle is somewhat burned out by the radiographic technique XR/XR chest 1V IMPRESSION: No acute cardiopulmonary disease.
--- NOTE | 2023-01-25 13:14 | ED.GENADULT ---
HPI - General Adult General Chief complaint: Dyspnea Stated complaint: SOB,CP W/COUGH PER EMS Time Seen by Provider: 01/25/23 13:02 Source: patient Mode of arrival: wheelchair Limitations: no limitations History of Present Illness HPI narrative: patient comes to the emergency room complaining of shortness of breath, wheezing. Patient states his symptoms started about 2 days ago. Patient has of 9 ipratropium every time she gets short of breath, no obvious rale. The hands, oxygen saturation was in the to high 80s/ low 90s when they picked the patient up. It started patient on 2 L of oxygen and brought her to the emergency room. Patient denies chest pain other than when she coughs violently. Related Data Home Medications Medication Instructions Recorded Confirmed dulaglutide 4.5 mg/0.5 mL 4.5 mg subcut FR 03/24/21 12/13/22 subcutaneous pen injector (Trulicity) furosemide 20 mg tablet 1 tab PO DAILY 05/26/21 12/13/22 levothyroxine 75 mcg tablet 1 tab PO DAILY 05/26/21 12/13/22 lisinopril 5 mg tablet 1 tab PO DAILY 05/26/21 12/13/22 loratadine 10 mg tablet 1 tab PO DAILY 05/26/21 12/13/22 metoprolol succinate 50 mg 1 tab PO DAILY 05/26/21 12/13/22 tablet,extended release 24 hr omeprazole 20 mg capsule,delayed 1 cap PO DAILY 05/26/21 12/13/22 release trazodone 50 mg tablet 1 tab PO BEDTIME 05/26/21 12/13/22 clonazepam 1 mg tablet 0.5 tab PO BID PRN anxiety 07/14/21 12/13/22 medroxyprogesterone 10 mg tablet 1 tab PO DAILY 07/14/21 12/13/22 warfarin 5 mg tablet 10 mg PO MOWEFR@1700 07/14/21 12/13/22 sertraline 100 mg tablet 1.5 tab PO QAM 07/22/21 12/13/22 dapagliflozin propanediol 5 mg 5 mg PO DAILY 12/13/22 12/13/22 tablet (Farxiga) ferrous sulfate 325 mg (65 mg 325 mg PO QAM 12/13/22 12/13/22 iron) tablet,delayed release insulin glargine U-300 conc 300 46 unit subcut QPM 12/13/22 12/13/22 unit/mL (3 mL) subcutaneous pen (Toujeo Max U-300 SoloStar) Previous Rx's Medication Instructions Recorded risperidone 0.5 mg tablet 0.5 mg PO BID PRN PTSD sx, 06/05/21 grounding sx #14 tabs flash glucose sensor (FreeStyle #2 ea 06/23/21 Shelby 2 Sensor kit) flash glucose scanning reader #1 ea 07/22/21 (FreeStyle [place] 2 [place]) pen needle, diabetic 32 gauge x #100 ea 09/04/2132 (BD Ultra-Fine Leslie Pen Needle) insulin lispro 100 unit/mL See Rx Instructions subcut 09/22/21 subcutaneous pen (Humalog KwikPen TIDWMEAL #15 mL (U-100) Insulin) metformin 1,000 mg tablet 1,000 mg PO BID 90 days #180 tabs 09/22/21 warfarin 6 mg tablet 6 mg PO 4XW #14 tabs 05/24/22 loperamide 2 mg capsule 2 mg PO Q4H PRN loose stool #10 12/07/22 caps Allergies Allergy/AdvReac Type Severity Reaction Status Date / Time Penicillins [PENICILLINS] Allergy Intermediate HIVES Verified 01/25/23 13:21 egg [Egg] Allergy Mild SWELLING Verified 01/25/23 13:21 aspirin Allergy Unknown Unknown Verified 01/25/23 13:21 bee pollen [BEE STINGS] Allergy Unknown UNKNOWN Verified 01/25/23 13:21 lactose [LACTOSE] Allergy Unknown UNKNOWN Verified 01/25/23 13:21 latex [LATEX] Allergy Unknown HIVES Verified 01/25/23 13:21 oxycodone Allergy Unknown Unknown Verified 01/25/23 13:21 peanut [PEANUT] Allergy Unknown UNKNOWN Verified 01/25/23 13:21 penicillin V Allergy Unknown Unknown Verified 01/25/23 13:21 kiwi Allergy Anaphylaxis Verified 01/25/23 13:21 eggs,bees,latex,peanuts Allergy Unknown Unknown Uncoded 09/22/21 14:56 medical tape Allergy Unknown Unknown Uncoded 09/22/21 14:56 TAPE,PLASTIC Allergy Unknown RASH Uncoded 09/22/21 14:56 Review of Systems Review of Systems: Constitutional : No Weight loss, No Fever, No Chills, No Night Sweats, No Fatigue, No Malaise ENT/Mouth : No Hearing loss, No Ear Pain, No Nasal Congestion, No Sinus Pain, No Hoarseness, No sore throat, No Rhinorrhea, No Swallowing Difficulty Eyes: No Eye Pain, No Swelling, No Redness, No Foreign Body, No Discharge, No Vision Changes Cardiovascular : No Chest Pain, No SOB, No Dyspnea on Exertion, No Orthopnea, No Edema, No Palpitations Respiratory : Complaining of cough, wheezing, shortness of breath Gastrointestinal : No Nausea, No Vomiting, No Diarrhea, No Constipation, No abdominal Pain, No Hematochezia, No Melena Genitourinary : no irregular bleeding, No Dysuria, No Urinary Frequency, No Hematuria, No Urinary Incontinence, No Urgency, No Flank Pain, No Urinary Flow Changes, No Hesitancy Musculoskeletal : No joint pain, No Myalgias, No Joint Swelling Skin : No Skin Lesions, No rash Neuro : No Weakness, No Numbness, No Paresthesias, No Loss of Consciousness, No Dizziness, No Headache Psych : No Anxiety/Panic, No Depression, No SI/HI/AH/VH, No Social Issues, Heme/Lymph: No Bruising, No Bleeding,No Lymphadenopathy Endocrine : No Polyuria, No Polydipsia, No Temperature Intolerance PMFSH Past Medical History Medical History Recurrent major depression PTSD (post-traumatic stress disorder) Acute hyperglycemia Proteinuria Obesity due to excess calories Hyperlipidemia LDL goal <70 Cardiomyopathy DVT (deep vein thrombosis) in Gallstones ROGERIO (obstructive sleep apnea) Pancreatitis BMI 50.0-59.9, adult Essential hypertension Diabetes type 2, uncontrolled Diabetes mellitus, type 2 CHF (congestive heart failure) Mood disorder Irritable bowel Hypothyroidism Depression Anxiety PTSD (post-traumatic stress disorder) Asthma Hypertension Pulmonary embolism Surgical History History of dental surgery History of open heart surgery Hx of removal of cyst Hx of hernia repair Family History Family History Paternal Grandmother Diabetes Social History Social History 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 Do you presently have visiting nurse or other home services: Yes Unable to assess alcohol history related to: Refusing to respond Alcohol intake: current Alcohol intake frequency: holidays/special occasions only Patient Tobacco Use Status: Former Tobacco user Tobacco use type: Cigarette e-Cigarette/Vaping Use: Never Used Second Hand Smoke Exposure: Yes Substance Use Type: Marijuana Advance Directives: Yes Advance Directives Information Provided: Yes Advance Directives on File: No service: No Current occupational status: disabled Sexual orientation: Lesbian/Good/Homosexual Physical Exam ED Vital Signs: Vital Signs - 24 hr 01/25/23 12:47 01/25/23 15:52 Temperature 98.4 F 98.9 F Pulse Rate 85 80 Respiratory Rate 20 16 Blood Pressure 105/51 L 111/50 L Pulse Oximetry 88 L 91 L Oxygen Delivery Method Room Air Nasal Cannula Oxygen Flow Rate 1 BMI result Body Mass Index 53.7 Const Other: Physical exam Appearance: Alert. Oriented X3. No acute distress. Eyes: Pupils equal, round and reactive to light. ENT: Pharynx normal. Neck: Normal inspection. Neck supple. No lymph nodes noted. No crepitus CVS: Normal heart rate and rhythm. Pulses normal. Normal S1 and S2 Respiratory: patient is in severe tachypnea, no wheezing, no rales or crackles. However, when patient walks, her oxygen saturation drops to 84% On room air Abdomen: Soft and nontender. No rigidity. No distention. Skin: Skin warm and dry. Normal skin color. Normal skin turgor. Extremities: No lower extremity edema. No Lacerations. No Rash Neuro: Oriented X 3. No motor deficit. No sensory deficit. Moving all extremities. No slurred speech. CN 2 through 12 grossly intact Psych: calm, cooperative, normal affect Course Course Course Narrative: - patient is not wheezing at this time. Patient receiving IV magnesium and Solu-Medrol. If patient starts wheezing, she will receive a nebulization treatment. Patient is currently on 2 L of Oxygen. -all Of patient labs pending Medications Administered Discontinued Medications Generic Name Dose Route Start Last Admin Trade Name Freq PRN Reason Stop Dose Admin Sodium Chloride 1,000 mls @ 999 mls/hr 01/25/23 13:16 01/25/23 15:04 Ns IVCONT 01/25/23 14:16 Infused .Q1H1M ONE Infusion Magnesium Sulfate 2 gm in 50 mls @ 25 mls/hr 01/25/23 13:16 01/25/23 16:49 Magnesium Sulfate/H2o IV 01/25/23 15:15 Infused ONCE ONE Infusion Methylprednisolone Sodium Succinate 125 mg 01/25/23 13:16 01/25/23 14:11 Methylprednisolone Sod Succ 125 Mg/2 Ml Vial IVPUSH 01/25/23 13:17 125 mg ONCE ONE Administration Medical Decision Making Medical Decision Making [facility] Narrative: - my interpretation of labs: Patient's hematology and chemistry at baseline. D-dimer negative. - my interpretation of chest x-ray, no pneumonia. - After treatment, patient was walked around the emergency room, oxygen saturation dropped to 84% - discussed the patient with Dr. Patel from the Hospital Team, patient being admitted Differential Diagnosis Differential Diagnoses: The differential diagnosis associated with the presentation includes ( pneumonia, COVID, asthma, chronic lung disease, CHF) Admission/Observation Consideration of admission/observation: Escalation of care including admission/observation considered Consult Healthcare Provider Management of the patient was discussed with: Hospitalist Lab Data [facility] Lab Attestation statement: I reviewed the patient's lab results. 01/25/23 13:40 01/25/23 13:39 Labs: Lab Results 01/25/23 01/25/23 01/25/23 Range/Units 13:39 13:40 13:52 WBC 7.8 (4.8-10.8) X10*3/uL RBC 5.11 (4.20-5.50) X10*6/uL Hgb 15.2 (12.0-16.0) g/dl Hct 46.8 (37.0-47.0) % MCV 91.6 (80.0-98.0) fL MCH 29.7 (27.0-33.0) pg MCHC 32.5 (31.0-35.0) g/dl RDW 15.4 (11.0-16.0) % Plt Count 291 (160-400) X10*3/uL MPV 10.9 (9.4-12.3) fL Immature Gran % (Auto) 0.4 (0.0-0.4) % Neut % (Auto) 67.1 (45-73) % Lymph % (Auto) 22.8 (20-40) % [place] % (Auto) 7.8 (2-11) % Eos % (Auto) 1.0 (0-4) % Baso % (Auto) 0.9 (0-2) % Lymph # (Auto) 1.8 (1.2-4.9) X10*3/uL [place] # (Auto) 0.6 (0.1-1.2) X10*3/uL Eos # (Auto) 0.1 (0.0-0.4) X10*3/uL Baso # (Auto) 0.1 (0.0-0.2) X10*3/uL Abs Immat Gran (auto) 0.03 (0.00-0.03) X10*3/uL Absolute Neuts (auto) 5.3 (2.0-8.3) x10*3/uL Absolute Nucleated RBC 0.000 (0.0-0.012) X10*3/uL Nucleated RBC % (auto) 0.0 (0.0-0.2) /100WBC PT 26.6 H (11.1-13.3) SEC INR 2.2 H (0.9-1.1) D-Dimer High Sensitivty < 150 NG/ML VBG pH (7.32-7.43) VBG pCO2 mmHg VBG pO2 mmHg VBG HCO3 (22-26) mmol/L VBG O2 Saturation % VBG Base Excess mmol/L Sodium 140 (135-145) mmol/L Potassium 4.4 (3.3-5.1) mmol/L Chloride 104 (96-108) mmol/L Carbon Dioxide 25 (22-29) mmol/L Anion Gap 15 (12-20) BUN 12 (9-16) mg/dL Creatinine 1.21 (0.5-1.4) mg/dL Estim Creat Clear Calc 88.8 Estimated GFR 48 Random Glucose 293 H (60-115) mg/dL Lactic Acid 1.3 (0.5-2.0) mmol/L Calcium 10.7 H D (8.4-10.2) mg/dL Total Bilirubin 0.4 (0.0-1.0) mg/dL Direct Bilirubin 0.1 (0.0-0.5) mg/dL AST 14 (5-31) U/L ALT 14 (0-31) U/L Alkaline Phosphatase 69 (39-117) U/L Troponin I High Sens < 2.7 (<3.5-17.0) ng/L B-Natriuretic Peptide 78 (<100) pg/mL Total Protein 8.1 H (6.5-8.0) g/dL Albumin 4.1 (3.5-5.0) g/dL COVID-19 ([place]) Negative (Negative) COVID-19 Clin Com See Note Influenza Type A () Negative (Negative) Influenza Type B () Negative (Negative) Influenza A & B Note See Note 01/25/23 Range/Units 13:57 WBC (4.8-10.8) X10*3/uL RBC (4.20-5.50) X10*6/uL Hgb (12.0-16.0) g/dl Hct (37.0-47.0) % MCV (80.0-98.0) fL MCH (27.0-33.0) pg MCHC (31.0-35.0) g/dl RDW (11.0-16.0) % Plt Count (160-400) X10*3/uL MPV (9.4-12.3) fL Immature Gran % (Auto) (0.0-0.4) % Neut % (Auto) (45-73) % Lymph % (Auto) (20-40) % [place] % (Auto) (2-11) % Eos % (Auto) (0-4) % Baso % (Auto) (0-2) % Lymph # (Auto) (1.2-4.9) X10*3/uL [place] # (Auto) (0.1-1.2) X10*3/uL Eos # (Auto) (0.0-0.4) X10*3/uL Baso # (Auto) (0.0-0.2) X10*3/uL Abs Immat Gran (auto) (0.00-0.03) X10*3/uL Absolute Neuts (auto) (2.0-8.3) x10*3/uL Absolute Nucleated RBC (0.0-0.012) X10*3/uL Nucleated RBC % (auto) (0.0-0.2) /100WBC PT (11.1-13.3) SEC INR (0.9-1.1) D-Dimer High Sensitivty NG/ML VBG pH 7.40 (7.32-7.43) VBG pCO2 45 mmHg VBG pO2 52 mmHg VBG HCO3 29 H (22-26) mmol/L VBG O2 Saturation 83.0 % VBG Base Excess 3.6 mmol/L Sodium (135-145) mmol/L Potassium (3.3-5.1) mmol/L Chloride (96-108) mmol/L Carbon Dioxide (22-29) mmol/L Anion Gap (12-20) BUN (9-16) mg/dL Creatinine (0.5-1.4) mg/dL Estim Creat Clear Calc Estimated GFR Random Glucose (60-115) mg/dL Lactic Acid (0.5-2.0) mmol/L Calcium (8.4-10.2) mg/dL Total Bilirubin (0.0-1.0) mg/dL Direct Bilirubin (0.0-0.5) mg/dL AST (5-31) U/L ALT (0-31) U/L Alkaline Phosphatase (39-117) U/L Troponin I High Sens (<3.5-17.0) ng/L B-Natriuretic Peptide (<100) pg/mL Total Protein (6.5-8.0) g/dL Albumin (3.5-5.0) g/dL COVID-19 ([place]) (Negative) COVID-19 Clin Com Influenza Type A () (Negative) Influenza Type B () (Negative) Influenza A & B Note Independent Interpretation I performed an independent interpretation of an: Plain X-Ray and CT Scan Radiology Impression Discussion of test interpretation with radiology: I have reviewed the radiologist's reading. Radiologist Impression: FINDINGS: There is no significant interval change. The study is degraded by the patient's large body habitus and the portable technique. Lung volumes are low. There is no convincing focal consolidation, interstitial pulmonary edema or pneumothorax. The patient is status post median sternotomy. There is fracture of the most superior cerclage wire. The cardiomediastinal silhouette is stable. No obvious pleural effusions. The right costophrenic angle is somewhat burned out by the radiographic technique XR/XR chest 1V IMPRESSION: No acute cardiopulmonary disease. Critical Care Time Critical Care Time Critical Care Time: Yes Total Critical Care Time: 60 Attestation: I have personally provided critical care time. Time includes review of lab data, radiology results, discussion with consultants, and monitoring for potential decompensation. Intervention performed as documented. Discharge Plan Discharge Clinical Impression: Asthma exacerbation Patient Disposition: Admitted As Inpatient Prescriptions: No Action (DME) FreeStyle Shelby 2 [place] Misc See Rx Instructions .ROUTE .MEDSUPPLY Qty: 1 0RF Rx Instructions: As directed (DME) pen needle, diabetic [BD Ultra-Fine Leslie Pen Needle] 32 gauge x 5/32 needle See Rx Instructions .ROUTE .MEDSUPPLY Qty: 100 11RF Rx Instructions: As directed three times a day Trulicity 4.5 mg/0.5 mL pen injector 4.5 mg subcut FR furosemide 20 mg tablet 1 tab PO DAILY lisinopril 5 mg tablet 1 tab PO DAILY levothyroxine 75 mcg tablet 1 tab PO DAILY loratadine 10 mg tablet 1 tab PO DAILY metoprolol succinate 50 mg tablet extended release 24 hr 1 tab PO DAILY omeprazole 20 mg capsule,delayed release(DR/EC) 1 cap PO DAILY trazodone 50 mg tablet 1 tab PO BEDTIME risperidone 0.5 mg Tablet 0.5 mg PO BID PRN (Reason: PTSD sx, grounding sx) Qty: 14 2RF sertraline 100 mg tablet 1.5 tab PO QAM medroxyprogesterone 10 mg tablet 1 tab PO DAILY clonazepam 1 mg tablet 0.5 tab PO BID PRN (Reason: anxiety) warfarin 5 mg tablet 10 mg PO MOWEFR@1700 warfarin 6 mg tablet 6 mg PO 4XW Qty: 14 0RF Rx Instructions: on tuesday,tuesday,tuesday and -take warfarin 6 mg by mouth ferrous sulfate 325 mg (65 mg iron) tablet,delayed release (DR/EC) 325 mg PO QAM Farxiga 5 mg tablet 5 mg PO DAILY Toujeo Max U-300 SoloStar 300 unit/mL (3 mL) insulin pen 46 unit subcut QPM loperamide 2 mg capsule 2 mg PO Q4H PRN (Reason: loose stool) Qty: 10 0RF Rx Instructions: administer after each loose stool until symptoms controlled; do not exceed 8 mg per 24 hrs insulin lispro [Humalog KwikPen Insulin] 100 unit/mL insulin pen See Rx Instructions subcut TIDWMEAL Qty: 15 6RF Rx Instructions: 8 u shake, 12 u small meal, 16 u lreg/lrg meal subcutaneously 3 times per day with meals; metformin 1,000 mg tablet 1,000 mg PO BID 90 Days Qty: 180 1RF (DME) FreeStyle Shelby 2 Sensor Kit See Rx Instructions .ROUTE .MEDSUPPLY Qty: 2 11RF Rx Instructions: As directed every 2 weeks
--- NOTE | 2023-01-25 13:16 | ECG_ITS ---
Test Reason : SOB Blood Pressure : / mmHG Vent. Rate : 083 BPM Atrial Rate : 083 BPM P-R Int : 170 ms QRS Dur : 080 ms QT Int : 384 ms P-R-T Axes : 061 107 083 degrees QTc Int : 451 ms Normal sinus rhythm Rightward axis Cannot rule out Anterior infarct (cited on or before 07-DEC-2022) Abnormal ECG When compared with ECG of 07-DEC-2022 13:54, No significant change was found Referred By: Shannon Kaur Electronically Signed By:YAQUELIN DE LA PAZ MD
[2023-01-25 13:53] LABS: MANUAL DIFF FLAG NO
[2023-01-25 13:58] LABS: Basophils Absolute Auto 0.1 X10*3/uL (0.0-0.2); Basophils Percent Auto 0.9 % (0-2); Eosinophils Absolute Auto 0.1 X10*3/uL (0.0-0.4); Hematocrit 46.8 % (37.0-47.0); Hemoglobin 15.2 g/dl (12.0-16.0); Imm Gran Abs Auto 0.03 X10*3/uL (0.00-0.03); Imm Gran Pct Auto 0.4 % (0.0-0.4); Lymphocytes Absolute Auto 1.8 X10*3/uL (1.2-4.9); Lymphocytes Percent Auto 22.8 % (20-40); Mean Corpuscular HGB Conc 32.5 g/dl (31.0-35.0); Mean Corpuscular Hemoglobin 29.7 pg (27.0-33.0); Mean Corpuscular Volume 91.6 fL (80.0-98.0); Mean Platelet Volume 10.9 fL (9.4-12.3); Monocytes Absolute Auto 0.6 X10*3/uL (0.1-1.2); Monocytes Percent Auto 7.8 % (2-11); Neutrophils Absolute Auto 5.3 x10*3/uL (2.0-8.3); Neutrophils Percent Auto 67.1 % (45-73); Platelet Count 291 X10*3/uL (160-400); Red Blood Count 5.11 X10*6/uL (4.20-5.50); Red Cell Distribution Width 15.4 % (11.0-16.0); White Blood Count 7.8 X10*3/uL (4.8-10.8)
[2023-01-25 14:03] LABS: VBG Base Excess 3.6 mmol/L; VBG HCO3 29 mmol/L (22-26); VBG pCO2 45 mmHg; VBG pO2 52 mmHg
[2023-01-25 14:03] LABS: Venous Blood Gas Refer to POC result
[2023-01-25] MEDS: 0.9 % Sodium Chloride 1,000 ML 999 ML IVCONT (14:03)
[2023-01-25 14:04] LABS: INTERNATIONAL NORM RATIO 2.2 (0.9-1.1); Prothrombin Time 26.6 SEC (11.1-13.3)
[2023-01-25 14:07] LABS: Lactic Acid 1.3 mmol/L (0.5-2.0)
[2023-01-25 14:11] LABS: Alanine Aminotransferase 14 U/L (0-31); Albumin Level 4.1 g/dL (3.5-5.0); Alkaline Phosphatase 69 U/L (39-117); Anion Gap 15 (12-20); Aspartate Amino Transferase 14 U/L (5-31); Bilirubin Direct 0.1 mg/dL (0.0-0.5); Bilirubin Total 0.4 mg/dL (0.0-1.0); Blood Urea Nitrogen 12 mg/dL (9-16); Calcium 10.7 mg/dL (8.4-10.2); Carbon Dioxide 25 mmol/L (22-29); Chloride 104 mmol/L (96-108); Creatinine Clr Calc Pharmacy 88.8; Estimated Glomerular Filt Rate 48; Glucose Random 293 mg/dL (60-115); Potassium 4.4 mmol/L (3.3-5.1); Sodium 140 mmol/L (135-145); Total Protein 8.1 g/dL (6.5-8.0)
[2023-01-25] MEDS: methylPREDNISolone Sod Succ 125 MG/2 ML VIAL IVPUSH (14:11)
[2023-01-25] MEDS: Magnesium Sulfate/H2O 2 GM/50 ML PIGGYBACK IV (14:11)
[2023-01-25 14:16] LABS: B Type Natriuretic Peptide 78 pg/mL (<100)
[2023-01-25 14:20] LABS: Troponin-I High Sensitivity < 2.7 ng/L (<3.5-17.0)
[2023-01-25 14:27] LABS: COVID-19 Test Negative (Negative); IDNOW Serial# 9DB6401D; IDNOW Serial# BCCEAD1C; Influenza A Negative (Negative); Influenza B2 Negative (Negative)
--- NOTE | 2023-01-25 16:02 | MHC.EDTECH ---
Per Provider order Patient went for a short walk ,when patient stand up 02 sat on room air was 91 % ,when Patient walk o2 sat desat to 85 % on Room air ,Provider Natasha aware ,vitals taken ,pt back in bed ,and was hooked back up to shelter monitor and o2 on 2 l.
[2023-01-25 16:42] LABS: D Dimer High Sensitivity < 150 NG/ML
--- NOTE | 2023-01-25 18:02 | PHA.MEDREC ---
Pharmacy Consult ? Medication Reconciliation Pharmacy has completed the medication reconciliation. Patient not confident in here medications. Report warfarin was increased to 15 mg daily. Was able to confirmed insulin and Trulicity. The rest of medications were completed by claim history. Guadalupe Knox, PharmD
--- NOTE | 2023-01-25 18:30 | PM.IMHP ---
History of Present Illness Date of Service: 01/25/23 Attending physician on admission: Darya Patel Chief Complaint: sob, wheezing, chest pain 47-year-old female with history asthma, heart failure preserved ejection fraction, cardiomyopathy, borderline personality disorder, depression and anxiety, insulin-dependent type 2 diabetes, hypertension, hyperlipidemia, history of DVT/PE on Coumadin, who is morbidly obese with BMI greater than 53 presented to the ED earlier today for evaluation of shortness of breath, productive cough, wheezing, and pleuritic chest pain. She states 1 of her aides at home was ill recently and for the last 2 days has been experiencing the symptoms. Has also had chills but denies any fevers. No sore throat, sinus pain, rhinorrhea, abdominal pain, nausea, vomiting, diarrhea, lightheadedness, headache, palpitations, or chest pressure. She has been using her albuterol nebulizers without much relief. On arrival, patient hypoxic to 85% on room air placed on 2 L supplemental O2 maintaining oximetry 91-93%. She states she does have supplemental O2 at home which she uses only as needed. Vitals otherwise stable. No leukocytosis. Renal function and electrolyte levels normal. Glucose 293. Troponin undetectable, BNP 78. VBG reassuring with pH 7.40, pCO2 45, PO2 52, bicarb 29. Negative for COVID-19, influenza. Chest x-ray negative for any acute cardiopulmonary disease. EKG shows normal sinus rhythm, rate 83, no acute ST/T-wave abnormality, unchanged from prior EKGs. In the ED, has received 125 mg IV methylprednisolone, 2g IV magnesium, and 1L IVNS. Review of Systems Review of Systems: General: No fevers, malaise, unintentional weight loss HEENT: No blurred vision, diplopia. No sore throat, nasal congestion, rhinorrhea, sinus pain, ear pain Cardiovascular: No chest pressure, palpitations, or leg edema Respiratory: + shortness of breath,+ wheezing, +cough GI: No abdominal pain, nausea, vomiting, diarrhea, constipation, melena, hematochezia : No dysuria, hematuria, increased urinary frequency, decreased urinary output MSK: No myalgia, back pain. +pleuritic chest pain Neuro: No headaches, weakness, paresthesias Skin: No rashes or lesions [facility] Medical History Recurrent major depression PTSD (post-traumatic stress disorder) Acute hyperglycemia Proteinuria Obesity due to excess calories Hyperlipidemia LDL goal <70 Cardiomyopathy DVT (deep vein thrombosis) in Gallstones ROGERIO (obstructive sleep apnea) Pancreatitis BMI 50.0-59.9, adult Essential hypertension Diabetes type 2, uncontrolled Diabetes mellitus, type 2 CHF (congestive heart failure) Mood disorder Irritable bowel Hypothyroidism Depression Anxiety PTSD (post-traumatic stress disorder) Asthma Hypertension Pulmonary embolism Family History Paternal Grandmother Diabetes Surgical History History of dental surgery History of open heart surgery Hx of removal of cyst Hx of hernia repair Social History Household Members: None Housing: Apartment Housing Other:: Has [employer] WORKER twice a day. Do you presently have visiting nurse or other home services: Yes Unable to assess alcohol history related to: Refusing to respond Alcohol intake: current Alcohol intake frequency: holidays/special occasions only Patient Tobacco Use Status: Former Tobacco user Tobacco use type: Cigarette Smoked in Last 30 Days: No e-Cigarette/Vaping Use: Never Used Second Hand Smoke Exposure: Yes (others at her apartment complex) Use of substances other than those prescribed or required for medical reasons: Yes Substance Use Type: Marijuana Substance Use Type Other:: per pt she takes medical marijuana for anxiety Substance Use Frequency: Occasionally Last Used Substance Other:: a month ago Currently Displaying Signs/Symptoms of Drug Intoxication Withdrawal: No Any prior treatment program specific to substance use: No Have you been hit, kicked, punched, or otherwise hurt by someone within the past year? If so, by whom?: No Do you feel safe in your current relationship?: Yes Is there a partner from a previous relationship who is making you feel unsafe now?: No Are you made to feel afraid or neglected: No Advance Directives: No Advance Directives Information Provided: No Advance Directives on File: No Do you have thoughts of harming others: None Do you have a plan to hurt others: No Plan Recently lost weight without trying: Unsure Eating poorly because of decreased appetite: Yes Nutrition Risks: No Nutritional Risk Patient : No : No Poor oral hygiene: No service: No Current occupational status: disabled Sexual orientation: Lesbian/Good/Homosexual Meds Allergies Allergy/AdvReac Type Severity Reaction Status Date / Time Penicillins [PENICILLINS] Allergy Intermediate HIVES Verified 01/25/23 13:21 egg [Egg] Allergy Mild SWELLING Verified 01/25/23 13:21 aspirin Allergy Unknown Unknown Verified 01/25/23 13:21 bee pollen [BEE STINGS] Allergy Unknown UNKNOWN Verified 01/25/23 13:21 lactose [LACTOSE] Allergy Unknown UNKNOWN Verified 01/25/23 13:21 latex [LATEX] Allergy Unknown HIVES Verified 01/25/23 13:21 oxycodone Allergy Unknown Unknown Verified 01/25/23 13:21 peanut [PEANUT] Allergy Unknown UNKNOWN Verified 01/25/23 13:21 penicillin V Allergy Unknown Unknown Verified 01/25/23 13:21 kiwi Allergy Anaphylaxis Verified 01/25/23 13:21 eggs,bees,latex,peanuts Allergy Unknown Unknown Uncoded 09/22/21 14:56 medical tape Allergy Unknown Unknown Uncoded 09/22/21 14:56 TAPE,PLASTIC Allergy Unknown RASH Uncoded 09/22/21 14:56 Active Medications: Current Medications Acetaminophen (Acetaminophen 325 Mg Tablet) 650 mg PO Q6H PRN PRN Reason: Pain, Mild (Pain Scale 1-3) Albuterol Sulfate (Albuterol Sulfate (0.083%) 2.5 Mg/3 Ml Vial.Neb) 2.5 mg INHALE Q2H PRN PRN Reason: Shortness of Breath/Wheezing Albuterol/Ipratropium (Albuterol/Iprat 2.5/0.5mg 3 Ml Ampul.Neb) 3 ml INHALE RQ4H WHILE AWAKE [facility] Dextrose (Dextrose 50 % 25 Gm/50 Ml Syringe) 25 gm IVPUSH Q15M PRN; Protocol PRN Reason: per Hypoglycemia Standing Ord. Docusate Sodium (Docusate Sodium 100 Mg Capsule) 100 mg PO DAILY PRN PRN Reason: Constipation Glucose (Glucose Gel 15 Gm Gel..Gram.) 15 gm PO Q15M PRN; Protocol PRN Reason: per Hypoglycemia Standing Ord. Insulin Human Lispro (Insulin Lispro 100 Unit/Ml 3 Ml Vial) 0 unit SUBCUT QIDACHS CLAIRE; Protocol Levothyroxine Sodium (Levothyroxine Sodium 75 Mcg Tablet) 75 mcg PO DAILY [facility] Lisinopril (Lisinopril 5 Mg Tablet) 5 mg PO DAILY [facility]; Protocol Loratadine (Loratadine 10 Mg Tablet) 10 mg PO DAILY [facility] Methylprednisolone Sodium Succinate (Methylprednisolone Sod Succ 40 Mg/Ml Vial) 40 mg IVPUSH Q12H [facility] Non-Formulary Medication (Ferrous Sulfate) 325 mg PO QAM [facility] Non-Formulary Medication (Medroxyprogesterone) 1 tab PO DAILY [facility] Ondansetron HCl (Ondansetron Hcl 4 Mg/2 Ml Vial) 4 mg IVPUSH Q8H PRN PRN Reason: Nausea and Vomiting Sertraline HCl (Sertraline Hcl 50 Mg Tablet) 150 mg PO QAM [facility] Sodium Chloride (0.9 % Sodium Chloride Flush 3 Ml Syringe) 3 ml IVFLUSH QSHIFT [facility] Trazodone HCl (Trazodone Hcl 50 Mg Tablet) 50 mg PO BEDTIME [facility] Home Medications Medication Instructions Recorded Confirmed Last Taken Type furosemide 20 mg tablet 1 tab PO DAILY 05/26/21 01/25/23 05/20/22 History levothyroxine 75 mcg tablet 1 tab PO DAILY 05/26/21 01/25/23 05/20/22 History lisinopril 5 mg tablet 1 tab PO DAILY 05/26/21 01/25/23 05/20/22 History loratadine 10 mg tablet 1 tab PO DAILY 05/26/21 01/25/23 05/19/22 08:00 History metoprolol succinate 50 mg 1 tab PO DAILY 05/26/21 01/25/23 05/19/22 08:00 History tablet,extended release 24 hr omeprazole 20 mg capsule,delayed 1 cap PO DAILY PRN gi upset 05/26/21 01/25/23 05/19/22 08:00 History release trazodone 50 mg tablet 1 tab PO BEDTIME 05/26/21 01/25/23 05/19/22 23:00 History clonazepam 1 mg tablet 0.5 tab PO BID PRN anxiety 07/14/21 01/25/23 05/19/22 23:00 History medroxyprogesterone 10 mg tablet 1 tab PO DAILY 07/14/21 01/25/23 05/19/22 08:00 History warfarin 5 mg tablet 15 mg PO DAILY@1800 0401/25/23 05/20/22 00:17 History sertraline 100 mg tablet 1.5 tab PO QAM 07/22/21 01/25/23 05/19/22 08:00 History dapagliflozin propanediol 5 mg 5 mg PO DAILY 12/13/22 01/25/23 Unknown History tablet (Farxiga) ferrous sulfate 325 mg (65 mg 325 mg PO QAM 12/13/22 01/25/23 Unknown History iron) tablet,delayed release insulin glargine U-300 conc 300 46 unit subcut QPM 12/13/22 01/25/23 Unknown History unit/mL (3 mL) subcutaneous pen (Toujeo Max U-300 SoloStar) dulaglutide 3 mg/0.5 mL 3 mg subcut QWEEK 01/25/23 01/25/23 Unknown History [facility] Physical Exam Vital Signs and Narrative: Vital Signs: Last Vital Signs Temp 98.9 F 01/25/23 15:52 Pulse 80 01/25/23 15:52 Resp 16 01/25/23 15:52 BP 111/50 L 01/25/23 15:52 Pulse Ox 85 L 01/25/23 16:01 O2 Del Method Room Air 01/25/23 16:01 O2 Flow Rate 1 01/25/23 15:52 BMI result Body Mass Index 53.7 Constitutional - Awake and Alert, No apparent distress Eyes - PERRLA, EOMI Cardiovascular - S1S2, RRR, 1+ ble edema Respiratory - Normal lung expansion, Normal respiratory effort, No respiratory distress on 2 L supplemental O2, diminished lung sounds bilaterally with expiratory wheezing noted in the bilateral lower lobes Gastrointestinal - NT / ND; +BS; No rebound or guarding Extremities - no calf tenderness bilaterally, no swelling Skin - Warm/Dry Neurological - Alert & oriented x3 Psychological - Appropriate affect Results Labs 01/26/23 05:44 01/26/23 05:44 Labs: Laboratory Results - last 24 hr 01/25/23 01/25/23 01/25/23 13:39 13:40 13:52 MCV 91.6 MCH 29.7 MCHC 32.5 RDW 15.4 Plt Count 291 MPV 10.9 Immature Gran % (Auto) 0.4 Neut % (Auto) 67.1 Lymph % (Auto) 22.8 Hardin % (Auto) 7.8 Eos % (Auto) 1.0 Baso % (Auto) 0.9 Lymph # (Auto) 1.8 Hardin # (Auto) 0.6 Eos # (Auto) 0.1 Baso # (Auto) 0.1 Abs Immat Gran (auto) 0.03 Absolute Neuts (auto) 5.3 Absolute Nucleated RBC 0.000 Nucleated RBC % (auto) 0.0 PT 26.6 H INR 2.2 H D-Dimer High Sensitivty < 150 VBG pH VBG pCO2 VBG pO2 VBG HCO3 VBG O2 Saturation VBG Base Excess Anion Gap 15 Estim Creat Clear Calc 88.8 Estimated GFR 48 Random Glucose 293 H Lactic Acid 1.3 Calcium 10.7 H D Total Bilirubin 0.4 Direct Bilirubin 0.1 AST 14 ALT 14 Alkaline Phosphatase 69 B-Natriuretic Peptide 78 Total Protein 8.1 H Albumin 4.1 COVID-19 ([facility]) Negative COVID-19 Clin Com See Note Influenza Type A () Negative Influenza Type B () Negative Influenza A & B Note See Note 01/25/23 13:57 MCV MCH MCHC RDW Plt Count MPV Immature Gran % (Auto) Neut % (Auto) Lymph % (Auto) Hardin % (Auto) Eos % (Auto) Baso % (Auto) Lymph # (Auto) Hardin # (Auto) Eos # (Auto) Baso # (Auto) Abs Immat Gran (auto) Absolute Neuts (auto) Absolute Nucleated RBC Nucleated RBC % (auto) PT INR D-Dimer High Sensitivty VBG pH 7.40 VBG pCO2 45 VBG pO2 52 VBG HCO3 29 H VBG O2 Saturation 83.0 VBG Base Excess 3.6 Anion Gap Estim Creat Clear Calc Estimated GFR Random Glucose Lactic Acid Calcium Total Bilirubin Direct Bilirubin AST ALT Alkaline Phosphatase B-Natriuretic Peptide Total Protein Albumin COVID-19 ([facility]) COVID-19 Clin Com Influenza Type A () Influenza Type B () Influenza A & B Note Imaging Radiologist's Impressions: Impressions Chest X-Ray 01/25/23 13:48 IMPRESSION: No acute cardiopulmonary disease. Assessment and Plan (1) Asthma exacerbation: Status: Acute (2) Acute respiratory failure with hypoxia: Status: Acute (3) Obesity hypoventilation syndrome: Status: Acute Plan 47-year-old female with history asthma, heart failure preserved ejection fraction, cardiomyopathy, borderline personality disorder, depression and anxiety, insulin-dependent type 2 diabetes, hypertension, hyperlipidemia, history of DVT/PE on Coumadin, who is morbidly obese with BMI greater than 53 to be admitted for acute hypoxemic respiratory failure secondary to acute asthma exacerbation and obesity hypoventilation syndrome. # acute asthma exacerbation with acute hypoxemic respiratory failure complicated by obesity hypoventilation syndrome -CXR negative for any acute cardiopulmonary abnormality -negative for COVID-19, influenza. Full viral respiratory pathogen panel pending -IV methylprednisolone 40 mg b.i.d. -DuoNebs q.4h while awake -albuterol p.r.n. -continue supplemental O2 to maintain oximetry greater than 92% -incentive spirometry # hypertension -blood pressure is reasonably controlled -continue furosemide, lisinopril # insulin-dependent type 2 diabetes with hyperglycemia -dose adjusted basal insulin -Humalog on sliding scale -POC glucose -diabetic diet #HFrEF/cardiomyopathy -continue Lasix, Farxiga # history DVT/PE -continue Coumadin, INR currently therapeutic at 2.2 -follow INR # mood disorder -continue home meds # hypothyroidism -continue levothyroxine # morbid obesity with BMI greater than 53 -related to excess calories -weight loss efforts encouraged DVT prophylaxis-Coumadin Full code Patient requires inpatient stay at least 2 midnights for management of acute hypoxemic respiratory failure secondary to asthma exacerbation and obesity hypoventilation syndrome requiring supplemental O2, IV steroids, nebulizers and close monitoring to prevent decompensation Time Spent With Patient Time: Total time managing care of this patient today ____ minutes. Quality Stroke Does the patient have a stroke diagnosis?: No VTE Prior VTE?: Yes VTE Risk Level:: Medical - moderate - high VTE Device Contraindication: Treatment Not Indicated VTE Drug Contraindication: N/A - Med Ordered
[2023-01-25 19:25] LABS: Glucose, Whole Blood 235 mg/dL (60-115)
[2023-01-25] MEDS: Albuterol/Iprat 2.5/0.5MG 3 ML AMPUL.NEB INHALE (19:50)
--- NOTE | 2023-01-25 20:09 | PC.NURSE ---
I assumed care of the pt at 1900. Pt was able to ambulate with steady gait to the bathroom. Pt did express some dyspnea on exertion, as expected. Pt is A&Ox4, GCS 15, with warm, dry skin. Pt is on oxygen and cardiac cath technologist. Pt is being admitted for dyspnea and asthma exacerbation. Pt waiting room assignment at this time.
[2023-01-25 20:58] LABS: Glucose, Whole Blood 364 mg/dL (60-115)
[2023-01-25] MEDS: traZODone HCL 50 MG TABLET PO (21:28)
[2023-01-25] MEDS: Insulin Glargine,Hum.rec.anlog 100 UNIT/ML 10 ML VIAL 27 UNIT SUBCUT (21:29)
[2023-01-25] MEDS: Insulin Lispro 100 UNIT/ML 3 ML VIAL SUBCUT (21:29)
--- NOTE | 2023-01-25 21:39 | PC.NURSE ---
Attempted to call report at [phone], per US, RN will call back for report.
[2023-01-25] MEDS: 0.9 % Sodium Chloride Flush 3 ML SYRINGE IVFLUSH (22:29)
[2023-01-25 23:04] LABS: Glucose, Whole Blood 242 mg/dL (60-115)
[2023-01-26] VITALS (8 sets, daily range): BP systolic 120–140; BP diastolic 60–84; PULSE 84–94; RESP 16–20; TEMP 36.1–36.7; O2SAT 93–96
[2023-01-26] MEDS: methylPREDNISolone Sod Succ 40 MG/ML VIAL IVPUSH ×2 (05:07→18:06)
[2023-01-26] MEDS: Levothyroxine Sodium 75 MCG TABLET PO (05:09)
[2023-01-26 06:56] LABS: MANUAL DIFF FLAG NO
[2023-01-26 07:02] LABS: Basophils Percent Auto 0.3 % (0-2); Eosinophils Percent Auto 0.2 % (0-4); Hematocrit 44.5 % (37.0-47.0); Hemoglobin 14.4 g/dl (12.0-16.0); Imm Gran Abs Auto 0.06 X10*3/uL (0.00-0.03); Imm Gran Pct Auto 0.5 % (0.0-0.4); Lymphocytes Absolute Auto 1.6 X10*3/uL (1.2-4.9); Lymphocytes Percent Auto 14.6 % (20-40); Mean Corpuscular HGB Conc 32.4 g/dl (31.0-35.0); Mean Corpuscular Hemoglobin 29.5 pg (27.0-33.0); Mean Corpuscular Volume 91.2 fL (80.0-98.0); Mean Platelet Volume 11.4 fL (9.4-12.3); Monocytes Absolute Auto 0.4 X10*3/uL (0.1-1.2); Monocytes Percent Auto 3.5 % (2-11); Neutrophils Absolute Auto 8.9 x10*3/uL (2.0-8.3); Neutrophils Percent Auto 80.9 % (45-73); Platelet Count 279 X10*3/uL (160-400); Red Blood Count 4.88 X10*6/uL (4.20-5.50); Red Cell Distribution Width 15.7 % (11.0-16.0)
[2023-01-26 07:05] LABS: Glucose, Whole Blood 226 mg/dL (60-115)
[2023-01-26 07:07] LABS: INTERNATIONAL NORM RATIO 1.8 (0.9-1.1); Prothrombin Time 21.6 SEC (11.1-13.3)
[2023-01-26 07:21] LABS: Anion Gap 18 (12-20); Blood Urea Nitrogen 14 mg/dL (9-16); Carbon Dioxide 22 mmol/L (22-29); Chloride 103 mmol/L (96-108); Estimated Glomerular Filt Rate > 60; Glucose Random 243 mg/dL (60-115); Potassium 4.3 mmol/L (3.3-5.1); Sodium 139 mmol/L (135-145)
[2023-01-26] MEDS: Loratadine 10 MG TABLET PO (07:38)
[2023-01-26] MEDS: 0.9 % Sodium Chloride Flush 3 ML SYRINGE IVFLUSH ×3 (07:38→20:18)
[2023-01-26] MEDS: Metoprolol Succinate ER 50 MG TAB.ER.24H PO (07:38)
[2023-01-26] MEDS: Ferrous Sulfate 324 MG TABLET.DR PO (07:38)
[2023-01-26] MEDS: Insulin Lispro 100 UNIT/ML 3 ML VIAL SUBCUT ×4 (07:38→20:18)
[2023-01-26] MEDS: lisinopriL 5 MG TABLET PO (07:38)
[2023-01-26] MEDS: Sertraline HCL 50 MG TABLET 150 MG PO (07:39)
[2023-01-26] MEDS: Furosemide 20 MG TABLET PO (07:39)
[2023-01-26] MEDS: Empagliflozin 10 MG TABLET PO (07:39)
[2023-01-26] MEDS: Albuterol/Iprat 2.5/0.5MG 3 ML AMPUL.NEB INHALE ×4 (08:04→19:28)
[2023-01-26 09:40] LABS: Adenovirus PCR Not Detected (Not Detect.); Bordetella parapertussis PCR Not Detected (Not Detect.); Bordetella pertussis PCR Not Detected (Not Detect.); Chlamydia pneumoniae PCR Not Detected (Not Detect.); Coronavirus 229E PCR Not Detected (Not Detect.); Coronavirus HKU1 PCR Not Detected (Not Detect.); Coronavirus NL63 PCR Not Detected (Not Detect.); Coronavirus OC43 PCR Not Detected (Not Detect.); Human metapneumovirus PCR Not Detected (Not Detect.); Influenza A PCR Not Detected (Not Detect.); Influenza B PCR Not Detected (Not Detect.); Mycoplasma pneumoniae PCR Not Detected (Not Detect.); Parainfluenza 1 PCR Not Detected (Not Detect.); Parainfluenza 2 PCR Not Detected (Not Detect.); Parainfluenza 3 PCR Not Detected (Not Detect.); Parainfluenza 4 PCR Not Detected (Not Detect.); RSV PCR Not Detected (Not Detect.); Rhino/Enterovirus PCR Not Detected (Not Detect.)
[2023-01-26 10:57] LABS: Glucose, Whole Blood 321 mg/dL (60-115)
[2023-01-26 11:22] LABS: SARS-CoV-2 PCR Not Detected (Not Detect.)
--- NOTE | 2023-01-26 13:45 | HO.PM.IMPN ---
Subjective Subjective Date of Service: 01/26/23 Interval History: asthma excerebation Review of Systems still sob with minimum excersion has cough no fever Physical Exam Vital Signs: Vital Signs: Last Vital Signs Temp 98.0 F 01/26/23 07:01 Pulse 94 01/26/23 11:19 Resp 18 01/26/23 11:19 BP 120/60 01/26/23 07:01 Pulse Ox 93 01/26/23 07:01 O2 Del Method Nasal Cannula 01/26/23 07:01 O2 Flow Rate 2 01/26/23 07:01 BMI result Body Mass Index 56.5 Appearance: Alert.? Oriented X3.? cvs: rrr, [id number] , no murmur res: air enrty diminshed b/l wheezing abd: no rebound or guarding ,nt, bs present. ext pulses present , no cyanosis . neuro: axo3 , nonfocal. Objective Data Active Medications Acetaminophen (Acetaminophen 325 Mg Tablet) 650 mg PO Q6H PRN PRN Reason: Pain, Mild (Pain Scale 1-3) Albuterol Sulfate (Albuterol Sulfate (0.083%) 2.5 Mg/3 Ml Vial.Neb) 2.5 mg INHALE Q2H PRN PRN Reason: Shortness of Breath/Wheezing Albuterol/Ipratropium (Albuterol/Iprat 2.5/0.5mg 3 Ml Ampul.Neb) 3 ml INHALE RQ4H WHILE AWAKE [facility] Last Admin: 01/26/23 11:19 Dose: 3 ml Documented By: FAIZAN Clonazepam (Clonazepam 0.5 Mg Tablet) 0.5 mg PO BID PRN PRN Reason: anxiety Dextrose (Dextrose 50 % 25 Gm/50 Ml Syringe) 25 gm IVPUSH Q15M PRN; Protocol PRN Reason: per Hypoglycemia Standing Ord. Docusate Sodium (Docusate Sodium 100 Mg Capsule) 100 mg PO DAILY PRN PRN Reason: Constipation Empagliflozin (Empagliflozin 10 Mg Tablet) 10 mg PO DAILY [facility] Last Admin: 01/26/23 07:39 Dose: 10 mg Documented By: DIMA Ferrous Sulfate (Ferrous Sulfate 324 Mg Tablet.) 324 mg PO DAILY [facility] Last Admin: 01/26/23 07:38 Dose: 324 mg Documented By: DIMA Furosemide (Furosemide 20 Mg Tablet) 20 mg PO DAILY [facility]; Protocol Last Admin: 01/26/23 07:39 Dose: 20 mg Documented By: DIMA Glucose (Glucose Gel 15 Gm Gel..Gram.) 15 gm PO Q15M PRN; Protocol PRN Reason: per Hypoglycemia Standing Ord. Insulin Glargine (Insulin Glargine,Hum.Rec.Anlog 100 Unit/Ml 10 Ml Vial) 27 unit SUBCUT BEDTIME [facility] Last Admin: 01/25/23 21:29 Dose: 27 unit Documented By: LATOSHA Insulin Human Lispro (Insulin Lispro 100 Unit/Ml 3 Ml Vial) 0 unit SUBCUT QIDACHS [facility]; Protocol Last Admin: 01/26/23 11:54 Dose: 8 unit Documented By: DIMA Levothyroxine Sodium (Levothyroxine Sodium 75 Mcg Tablet) 75 mcg PO DAILY@0600 [facility] Last Admin: 01/26/23 05:09 Dose: 75 mcg Documented By: WENDY Lisinopril (Lisinopril 5 Mg Tablet) 5 mg PO DAILY [facility]; Protocol Last Admin: 01/26/23 07:38 Dose: 5 mg Documented By: DIMA Loratadine (Loratadine 10 Mg Tablet) 10 mg PO DAILY [facility] Last Admin: 01/26/23 07:38 Dose: 10 mg Documented By: DIMA Methylprednisolone Sodium Succinate (Methylprednisolone Sod Succ 40 Mg/Ml Vial) 40 mg IVPUSH Q12H [facility] Last Admin: 01/26/23 05:07 Dose: 40 mg Documented By: WENDY Metoprolol Succinate (Metoprolol Succinate Er 50 Mg Tab.Er.24h) 50 mg PO DAILY [facility]; Protocol Last Admin: 01/26/23 07:38 Dose: 50 mg Documented By: DIMA Omeprazole (Omeprazole 20 Mg Capsule.Dr) 20 mg PO DAILY PRN PRN Reason: gi upset Ondansetron HCl (Ondansetron Hcl 4 Mg/2 Ml Vial) 4 mg IVPUSH Q8H PRN PRN Reason: Nausea and Vomiting Sertraline HCl (Sertraline Hcl 50 Mg Tablet) 150 mg PO DAILY [facility] Last Admin: 01/26/23 07:39 Dose: 150 mg Documented By: DIMA Sodium Chloride (0.9 % Sodium Chloride Flush 3 Ml Syringe) 3 ml IVFLUSH QSHIFT [facility] Last Admin: 01/26/23 07:38 Dose: 3 ml Documented By: DIMA Trazodone HCl (Trazodone Hcl 50 Mg Tablet) 50 mg PO BEDTIME [facility] Last Admin: 01/25/23 21:28 Dose: 50 mg Documented By: LATOSHA Warfarin Sodium (Warfarin Sodium 7.5 Mg Tablet) 15 mg PO DAILY@1800 [facility] Warfarin Sodium (Warfarin Sodium 1 Mg Tablet) 1 mg PO ONCE@1800 ONE Stop: 01/26/23 18:01 Labs 01/26/23 05:44 01/26/23 05:44 Labs: Laboratory Results - last 24 hr 01/25/23 01/25/23 01/25/23 13:39 13:40 13:52 MCV 91.6 MCH 29.7 MCHC 32.5 RDW 15.4 Plt Count 291 MPV 10.9 Immature Gran % (Auto) 0.4 Neut % (Auto) 67.1 Lymph % (Auto) 22.8 [place] % (Auto) 7.8 Eos % (Auto) 1.0 Baso % (Auto) 0.9 Lymph # (Auto) 1.8 [place] # (Auto) 0.6 Eos # (Auto) 0.1 Baso # (Auto) 0.1 Abs Immat Gran (auto) 0.03 Absolute Neuts (auto) 5.3 Absolute Nucleated RBC 0.000 Nucleated RBC % (auto) 0.0 PT 26.6 H INR 2.2 H D-Dimer High Sensitivty < 150 VBG pH VBG pCO2 VBG pO2 VBG HCO3 VBG O2 Saturation VBG Base Excess Anion Gap 15 Estim Creat Clear Calc 88.8 Estimated GFR 48 POC Glucose Random Glucose 293 H Lactic Acid 1.3 Calcium 10.7 H D Total Bilirubin 0.4 Direct Bilirubin 0.1 AST 14 ALT 14 Alkaline Phosphatase 69 B-Natriuretic Peptide 78 Total Protein 8.1 H Albumin 4.1 Respiratory Panel Pichardo Adenovirus (Rapid PCR) B.pert (TEM-PCR) B.parapertussis DNA PCR C. pneumoniae DNA (PCR) Coronavirus OC43 (PCR) Coronavirus HKU1 (PCR) Coronavirus 229E (PCR) COVID-19 ([place]) Negative COVID-19 Clin Com See Note Coronavirus NL63 (PCR) Human Metapneumovir PCR Influenza Type A () Negative Influenza A (RT-PCR) Influenza Type B () Negative Influenza B (RT-PCR) Influenza A & B Note See Note M. pneumoniae (PCR) Parainfluenza 1 (PCR) Parainfluenza 2 (PCR) Parainfluenza 3 (PCR) Parainfluenza 4 (PCR) RSV (PCR) Entero/Rhino (PCR) SARS-CoV-2 RNA (RT-PCR) 01/25/23 01/25/23 01/25/23 13:57 18:32 18:35 MCV MCH MCHC RDW Plt Count MPV Immature Gran % (Auto) Neut % (Auto) Lymph % (Auto) [place] % (Auto) Eos % (Auto) Baso % (Auto) Lymph # (Auto) [place] # (Auto) Eos # (Auto) Baso # (Auto) Abs Immat Gran (auto) Absolute Neuts (auto) Absolute Nucleated RBC Nucleated RBC % (auto) PT INR D-Dimer High Sensitivty VBG pH 7.40 VBG pCO2 45 VBG pO2 52 VBG HCO3 29 H VBG O2 Saturation 83.0 VBG Base Excess 3.6 Anion Gap Estim Creat Clear Calc Estimated GFR POC Glucose 235 H Random Glucose Lactic Acid Calcium Total Bilirubin Direct Bilirubin AST ALT Alkaline Phosphatase B-Natriuretic Peptide Total Protein Albumin Respiratory Panel Pichardo See Note Adenovirus (Rapid PCR) Not Detected B.pert (TEM-PCR) Not Detected B.parapertussis DNA PCR Not Detected C. pneumoniae DNA (PCR) Not Detected Coronavirus OC43 (PCR) Not Detected Coronavirus HKU1 (PCR) Not Detected Coronavirus 229E (PCR) Not Detected COVID-19 ([place]) COVID-19 Clin Com Coronavirus NL63 (PCR) Not Detected Human Metapneumovir PCR Not Detected Influenza Type A () Influenza A (RT-PCR) Not Detected Influenza Type B () Influenza B (RT-PCR) Not Detected Influenza A & B Note M. pneumoniae (PCR) Not Detected Parainfluenza 1 (PCR) Not Detected Parainfluenza 2 (PCR) Not Detected Parainfluenza 3 (PCR) Not Detected Parainfluenza 4 (PCR) Not Detected RSV (PCR) Not Detected Entero/Rhino (PCR) Not Detected SARS-CoV-2 RNA (RT-PCR) Not Detected 01/25/23 01/25/23 01/26/23 20:53 21:45 05:44 MCV 91.2 MCH 29.5 MCHC 32.4 RDW 15.7 Plt Count 279 MPV 11.4 Immature Gran % (Auto) 0.5 H Neut % (Auto) 80.9 H Lymph % (Auto) 14.6 L [place] % (Auto) 3.5 Eos % (Auto) 0.2 Baso % (Auto) 0.3 Lymph # (Auto) 1.6 [place] # (Auto) 0.4 Eos # (Auto) 0.0 Baso # (Auto) 0.0 Abs Immat Gran (auto) 0.06 H Absolute Neuts (auto) 8.9 H Absolute Nucleated RBC 0.000 Nucleated RBC % (auto) 0.0 PT 21.6 H INR 1.8 H D-Dimer High Sensitivty VBG pH VBG pCO2 VBG pO2 VBG HCO3 VBG O2 Saturation VBG Base Excess Anion Gap 18 Estim Creat Clear Calc 117.0 Estimated GFR > 60 POC Glucose 364 H* 242 H Random Glucose 243 H Lactic Acid Calcium 10.0 D Total Bilirubin Direct Bilirubin AST ALT Alkaline Phosphatase B-Natriuretic Peptide Total Protein Albumin Respiratory Panel Pichardo Adenovirus (Rapid PCR) B.pert (TEM-PCR) B.parapertussis DNA PCR C. pneumoniae DNA (PCR) Coronavirus OC43 (PCR) Coronavirus HKU1 (PCR) Coronavirus 229E (PCR) COVID-19 ([place]) COVID-19 Clin Com Coronavirus NL63 (PCR) Human Metapneumovir PCR Influenza Type A () Influenza A (RT-PCR) Influenza Type B () Influenza B (RT-PCR) Influenza A & B Note M. pneumoniae (PCR) Parainfluenza 1 (PCR) Parainfluenza 2 (PCR) Parainfluenza 3 (PCR) Parainfluenza 4 (PCR) RSV (PCR) Entero/Rhino (PCR) SARS-CoV-2 RNA (RT-PCR) 01/26/23 01/26/23 06:59 10:53 MCV MCH MCHC RDW Plt Count MPV Immature Gran % (Auto) Neut % (Auto) Lymph % (Auto) [place] % (Auto) Eos % (Auto) Baso % (Auto) Lymph # (Auto) [place] # (Auto) Eos # (Auto) Baso # (Auto) Abs Immat Gran (auto) Absolute Neuts (auto) Absolute Nucleated RBC Nucleated RBC % (auto) PT INR D-Dimer High Sensitivty VBG pH VBG pCO2 VBG pO2 VBG HCO3 VBG O2 Saturation VBG Base Excess Anion Gap Estim Creat Clear Calc Estimated GFR POC Glucose 226 H 321 H Random Glucose Lactic Acid Calcium Total Bilirubin Direct Bilirubin AST ALT Alkaline Phosphatase B-Natriuretic Peptide Total Protein Albumin Respiratory Panel Pichardo Adenovirus (Rapid PCR) B.pert (TEM-PCR) B.parapertussis DNA PCR C. pneumoniae DNA (PCR) Coronavirus OC43 (PCR) Coronavirus HKU1 (PCR) Coronavirus 229E (PCR) COVID-19 ([place]) COVID-19 Clin Com Coronavirus NL63 (PCR) Human Metapneumovir PCR Influenza Type A () Influenza A (RT-PCR) Influenza Type B () Influenza B (RT-PCR) Influenza A & B Note M. pneumoniae (PCR) Parainfluenza 1 (PCR) Parainfluenza 2 (PCR) Parainfluenza 3 (PCR) Parainfluenza 4 (PCR) RSV (PCR) Entero/Rhino (PCR) SARS-CoV-2 RNA (RT-PCR) Assessment and Plan (1) Acute respiratory failure with hypoxia: Status: Acute (2) Asthma exacerbation: Status: Acute Plan 47-year-old female with history asthma, heart failure preserved ejection fraction, cardiomyopathy, borderline personality disorder, depression and anxiety, insulin-dependent type 2 diabetes, hypertension, hyperlipidemia, history of DVT/PE on Coumadin, who is morbidly obese with BMI greater than 53 to be admitted for acute hypoxemic respiratory failure secondary to acute asthma exacerbation and obesity hypoventilation syndrome. acute asthma exacerbation(mild intermittent asthma) with acute hypoxemic respiratory failure complicated by obesity hypoventilation syndrome -CXR negative for any acute cardiopulmonary abnormality -negative for COVID-19, influenza. Full viral respiratory pathogen panel pending -IV methylprednisolone 40 mg b.i.d. -DuoNebs q.4h while awake -albuterol p.r.n. -continue supplemental O2 to maintain oximetry greater than 92% -incentive spirometry hypertension -blood pressure is reasonably controlled -continue furosemide, lisinopril insulin-dependent type 2 diabetes with hyperglycemia -dose adjusted basal insulin -Humalog on sliding scale -POC glucose -diabetic diet HFrEF/cardiomyopathy -continue Lasix, Farxiga history DVT/PE INR currently therapeutic at 1.8,adjusted Coumadin, -follow INR mood disorder -continue home meds hypothyroidism -continue levothyroxine morbid obesity with BMI greater than 53 -related to excess calories -weight loss efforts encouraged DVT prophylaxis-Coumadin Full code ongoing need for hospitlisation stay for management of acute hypoxemic respiratory failure secondary to asthma exacerbation and obesity hypoventilation syndrome requiring supplemental O2, IV steroids, nebulizers and close monitoring to prevent decompensation. Quality Stroke Does the patient have a stroke diagnosis?: No VTE Prior VTE?: Yes VTE Risk Level:: Medical - moderate - high VTE Device Contraindication: Treatment Not Indicated VTE Drug Contraindication: N/A - Med Ordered
[2023-01-26] MEDS: Acetaminophen 325 MG TABLET 650 MG PO (15:13)
--- NOTE | 2023-01-26 15:56 | MHC.CM.PN ---
[facility] her worker is courtney who drives her to her appt and helps with her finances pt has a lock box who is managed thru [employer] her nurse is brayan [phone] she allso has a software development analyst 7 days a week
[2023-01-26 16:07] LABS: Glucose, Whole Blood 296 mg/dL (60-115)
[2023-01-26] MEDS: guaiFENesin 200 MG/10 ML 10 ML LIQUID PO (16:41)
[2023-01-26] MEDS: Warfarin Sodium 7.5 MG TABLET 15 MG PO (18:06)
[2023-01-26] MEDS: Warfarin Sodium 1 MG TABLET PO (18:07)
[2023-01-26 20:07] LABS: Glucose, Whole Blood 201 mg/dL (60-115)
[2023-01-26] MEDS: traZODone HCL 50 MG TABLET PO (20:18)
[2023-01-26] MEDS: Insulin Glargine,Hum.rec.anlog 100 UNIT/ML 10 ML VIAL 27 UNIT SUBCUT (20:18)
[2023-01-27] VITALS (7 sets, daily range): BP systolic 97–140; BP diastolic 50–89; PULSE 71–89; RESP 18–20; TEMP 36.1–36.9; O2SAT 92–95
[2023-01-27] MEDS: methylPREDNISolone Sod Succ 40 MG/ML VIAL IVPUSH ×2 (05:37→18:06)
[2023-01-27] MEDS: Levothyroxine Sodium 75 MCG TABLET PO (05:37)
[2023-01-27 06:18] LABS: INTERNATIONAL NORM RATIO 1.6 (0.9-1.1); Prothrombin Time 19.1 SEC (11.1-13.3)
[2023-01-27 07:51] LABS: Glucose, Whole Blood 222 mg/dL (60-115)
[2023-01-27] MEDS: Insulin Lispro 100 UNIT/ML 3 ML VIAL SUBCUT ×4 (08:04→21:05)
[2023-01-27] MEDS: 0.9 % Sodium Chloride Flush 3 ML SYRINGE IVFLUSH ×3 (08:05→23:58)
[2023-01-27] MEDS: Loratadine 10 MG TABLET PO (08:05)
[2023-01-27] MEDS: Metoprolol Succinate ER 50 MG TAB.ER.24H PO (08:05)
[2023-01-27] MEDS: lisinopriL 5 MG TABLET PO (08:05)
[2023-01-27] MEDS: Sertraline HCL 50 MG TABLET 150 MG PO (08:05)
[2023-01-27] MEDS: Furosemide 20 MG TABLET PO (08:05)
[2023-01-27] MEDS: Empagliflozin 10 MG TABLET PO (08:05)
[2023-01-27] MEDS: Ferrous Sulfate 324 MG TABLET.DR PO (08:05)
[2023-01-27] MEDS: guaiFENesin 200 MG/10 ML 10 ML LIQUID PO (08:15)
[2023-01-27] MEDS: Warfarin Sodium 5 MG TABLET PO (09:06)
[2023-01-27 11:04] LABS: Glucose, Whole Blood 301 mg/dL (60-115)
[2023-01-27] MEDS: Albuterol/Iprat 2.5/0.5MG 3 ML AMPUL.NEB INHALE ×3 (11:27→19:42)
[2023-01-27] MEDS: Docusate Sodium 100 MG CAPSULE PO (11:30)
--- NOTE | 2023-01-27 15:07 | P.PNIM_ITS ---
Subjective Subjective Date of Service: 01/28/23 Physical Exam 2 Vital Signs: Vital Signs: Last Vital Signs Temp 98.5 F 01/27/23 07:17 Pulse 89 01/27/23 11:28 Resp 20 01/27/23 11:28 BP 140/72 H 01/27/23 07:17 Pulse Ox 93 01/27/23 07:17 O2 Del Method Nasal Cannula 01/27/23 07:17 O2 Flow Rate 2 01/27/23 07:17 BMI result Body Mass Index 56.5 Objective Data Active Medications Acetaminophen (Acetaminophen 325 Mg Tablet) 650 mg PO Q6H PRN PRN Reason: Pain, Mild (Pain Scale 1-3) Last Admin: 01/26/23 15:13 Dose: 650 mg Documented By: DIMA Albuterol Sulfate (Albuterol Sulfate (0.083%) 2.5 Mg/3 Ml Vial.Neb) 2.5 mg INHALE Q2H PRN PRN Reason: Shortness of Breath/Wheezing Albuterol/Ipratropium (Albuterol/Iprat 2.5/0.5mg 3 Ml Ampul.Neb) 3 ml INHALE RQ4H WHILE AWAKE [facility] Last Admin: 01/27/23 11:27 Dose: 3 ml Documented By: ASMITA Clonazepam (Clonazepam 0.5 Mg Tablet) 0.5 mg PO BID PRN PRN Reason: anxiety Dextrose (Dextrose 50 % 25 Gm/50 Ml Syringe) 25 gm IVPUSH Q15M PRN; Protocol PRN Reason: per Hypoglycemia Standing Ord. Docusate Sodium (Docusate Sodium 100 Mg Capsule) 100 mg PO DAILY PRN PRN Reason: Constipation Last Admin: 01/27/23 11:30 Dose: 100 mg Documented By: RONNI Empagliflozin (Empagliflozin 10 Mg Tablet) 10 mg PO DAILY [facility] Last Admin: 01/27/23 08:05 Dose: 10 mg Documented By: RONNI Ferrous Sulfate (Ferrous Sulfate 324 Mg Tablet.) 324 mg PO DAILY [facility] Last Admin: 01/27/23 08:05 Dose: 324 mg Documented By: RONNI Furosemide (Furosemide 20 Mg Tablet) 20 mg PO DAILY [facility]; Protocol Last Admin: 01/27/23 08:05 Dose: 20 mg Documented By: RONNI Glucose (Glucose Gel 15 Gm Gel..Gram.) 15 gm PO Q15M PRN; Protocol PRN Reason: per Hypoglycemia Standing Ord. Guaifenesin (Guaifenesin 200 Mg/10 Ml 10 Ml Liquid) 10 ml PO Q4H PRN PRN Reason: Cough Last Admin: 01/27/23 08:15 Dose: 10 ml Documented By: RONNI Insulin Glargine (Insulin Glargine,Hum.Rec.Anlog 100 Unit/Ml 10 Ml Vial) 27 unit SUBCUT BEDTIME [facility] Last Admin: 01/26/23 20:18 Dose: 27 unit Documented By: ADAM Insulin Human Lispro (Insulin Lispro 100 Unit/Ml 3 Ml Vial) 0 unit SUBCUT QIDACHS [facility]; Protocol Last Admin: 01/27/23 11:30 Dose: 8 unit Documented By: RONNI Levothyroxine Sodium (Levothyroxine Sodium 75 Mcg Tablet) 75 mcg PO DAILY@0600 [facility] Last Admin: 01/27/23 05:37 Dose: 75 mcg Documented By: ADAM Lisinopril (Lisinopril 5 Mg Tablet) 5 mg PO DAILY [facility]; Protocol Last Admin: 01/27/23 08:05 Dose: 5 mg Documented By: RONNI Loratadine (Loratadine 10 Mg Tablet) 10 mg PO DAILY [facility] Last Admin: 01/27/23 08:05 Dose: 10 mg Documented By: RONNI Methylprednisolone Sodium Succinate (Methylprednisolone Sod Succ 40 Mg/Ml Vial) 40 mg IVPUSH Q12H [facility] Last Admin: 01/27/23 05:37 Dose: 40 mg Documented By: ADAM Metoprolol Succinate (Metoprolol Succinate Er 50 Mg Tab.Er.24h) 50 mg PO DAILY [facility]; Protocol Last Admin: 01/27/23 08:05 Dose: 50 mg Documented By: RONNI Omeprazole (Omeprazole 20 Mg Capsule.Dr) 20 mg PO DAILY PRN PRN Reason: gi upset Ondansetron HCl (Ondansetron Hcl 4 Mg/2 Ml Vial) 4 mg IVPUSH Q8H PRN PRN Reason: Nausea and Vomiting Sertraline HCl (Sertraline Hcl 50 Mg Tablet) 150 mg PO DAILY [facility] Last Admin: 01/27/23 08:05 Dose: 150 mg Documented By: RONNI Sodium Chloride (0.9 % Sodium Chloride Flush 3 Ml Syringe) 3 ml IVFLUSH QSHIFT [facility] Last Admin: 01/27/23 08:05 Dose: 3 ml Documented By: RONNI Trazodone HCl (Trazodone Hcl 50 Mg Tablet) 50 mg PO BEDTIME [facility] Last Admin: 01/26/23 20:18 Dose: 50 mg Documented By: MUNIRARISGlenys Warfarin Sodium (Warfarin Sodium 7.5 Mg Tablet) 15 mg PO DAILY@1800 [facility] Last Admin: 01/26/23 18:06 Dose: 15 mg Documented By: DIMA Labs 01/26/23 05:44 01/26/23 05:44 Labs: Laboratory Results - last 24 hr 01/26/23 01/26/23 01/27/23 16:04 20:03 05:05 Hold Purple Top SEE NOTE PT 19.1 H INR 1.6 H POC Glucose 296 H 201 H 01/27/23 01/27/23 07:47 11:00 Hold Purple Top PT INR POC Glucose 222 H 301 H Microbiology Microbiology Results: Microbiology 01/25/23 13:52 Blood Culture - Preliminary Blood - Venous No growth after 24 hours. 01/25/23 13:43 Blood Culture - Preliminary Blood - Venous No growth after 24 hours. Assessment and Plan (1) Acute respiratory failure with hypoxia: Status: Acute (2) Asthma exacerbation: Status: Acute Plan 47-year-old female with history asthma, heart failure preserved ejection fraction, cardiomyopathy, borderline personality disorder, depression and anxiety, insulin-dependent type 2 diabetes, hypertension, hyperlipidemia, history of DVT/PE on Coumadin, who is morbidly obese with BMI greater than 53 to be admitted for acute hypoxemic respiratory failure secondary to acute asthma exacerbation and obesity hypoventilation syndrome. acute asthma exacerbation(mild intermittent asthma) with acute hypoxemic respiratory failure complicated by obesity hypoventilation syndrome -CXR negative for any acute cardiopulmonary abnormality -negative for COVID-19, influenza. Full viral respiratory pathogen panel pending -IV methylprednisolone 40 mg b.i.d. -DuoNebs q.4h while awake -albuterol p.r.n. -continue supplemental O2 to maintain oximetry greater than 92% -incentive spirometry hypertension -blood pressure is reasonably controlled -continue furosemide, lisinopril insulin-dependent type 2 diabetes with hyperglycemia -dose adjusted basal insulin -Humalog on sliding scale -POC glucose -diabetic diet HFrEF/cardiomyopathy -continue Lasix, Farxiga history DVT/PE INR subtherapeutic, added additional dose of Coumadin. As per the patient she missed 1 dose of Coumadin when she came. adjusted Coumadin, -follow INR mood disorder -continue home meds hypothyroidism -continue levothyroxine morbid obesity with BMI greater than 53 -related to excess calories -weight loss efforts encouraged DVT prophylaxis-Coumadin Full code ongoing need for hospitlisation stay for management of acute hypoxemic respiratory failure secondary to asthma exacerbation and obesity hypoventilation syndrome requiring supplemental O2, IV steroids, nebulizers and close monitoring to prevent decompensation. Quality Stroke Does the patient have a stroke diagnosis?: No VTE Prior VTE?: Yes VTE Risk Level:: Medical - moderate - high VTE Device Contraindication: Treatment Not Indicated VTE Drug Contraindication: N/A - Med Ordered
--- NOTE | 2023-01-27 15:39 | PC.NURSE ---
pt would like her discharge to be ready by 10:30 am tomorrow,Dr. Patel notified
[2023-01-27 16:38] LABS: Glucose, Whole Blood 233 mg/dL (60-115)
[2023-01-27] MEDS: Warfarin Sodium 7.5 MG TABLET 15 MG PO (18:09)
[2023-01-27 20:05] LABS: Glucose, Whole Blood 264 mg/dL (60-115)
[2023-01-27] MEDS: traZODone HCL 50 MG TABLET PO (21:05)
[2023-01-27] MEDS: Insulin Glargine,Hum.rec.anlog 100 UNIT/ML 10 ML VIAL 27 UNIT SUBCUT (21:05)
[2023-01-28 03:15] VITALS: BP 132/67; PULSE 74; RESP 19; TEMP 36.2; O2SAT 94
[2023-01-28] MEDS: Levothyroxine Sodium 75 MCG TABLET PO (06:04)
[2023-01-28] MEDS: methylPREDNISolone Sod Succ 40 MG/ML VIAL IVPUSH (06:04)
[2023-01-28 06:53] LABS: INTERNATIONAL NORM RATIO 2.3 (0.9-1.1); Prothrombin Time 27.7 SEC (11.1-13.3)
[2023-01-28 07:16] VITALS: BP 107/52; PULSE 62; RESP 18; TEMP 36.7; O2SAT 93
[2023-01-28 07:22] LABS: Glucose, Whole Blood 206 mg/dL (60-115)
[2023-01-28] MEDS: Albuterol/Iprat 2.5/0.5MG 3 ML AMPUL.NEB INHALE (08:32)
[2023-01-28 08:33] VITALS: PULSE 62; RESP 16; O2SAT 93
[2023-01-28] MEDS: Insulin Lispro 100 UNIT/ML 3 ML VIAL SUBCUT (08:46)
[2023-01-28] MEDS: 0.9 % Sodium Chloride Flush 3 ML SYRINGE IVFLUSH (08:47)
[2023-01-28] MEDS: Acetaminophen 325 MG TABLET 650 MG PO (08:48)
[2023-01-28] MEDS: Sertraline HCL 50 MG TABLET 150 MG PO (08:49)
[2023-01-28] MEDS: lisinopriL 5 MG TABLET PO (08:49)
[2023-01-28] MEDS: Furosemide 20 MG TABLET PO (08:50)
[2023-01-28] MEDS: Empagliflozin 10 MG TABLET PO (08:50)
[2023-01-28] MEDS: Metoprolol Succinate ER 50 MG TAB.ER.24H PO (08:50)
[2023-01-28] MEDS: Loratadine 10 MG TABLET PO (08:51)
[2023-01-28] MEDS: Ferrous Sulfate 324 MG TABLET.DR PO (08:51)
--- NOTE | 2023-01-28 09:10 | PM.DS ---
DS: Providers Provider Date of Service: 01/28/23 Date of admission: 01/25/23 18:16 Date of discharge: 01/28/23 Primary care physician: Maria Guadalupe Severino MD Attending physician on discharge: Darya Patel Discharging clinician: Darya Patel DS: Diagnosis Discharge Diagnosis (1) Acute respiratory failure with hypoxia: Status: Acute (2) Asthma exacerbation: Status: Acute DS: Summary Hospital Course Hospital Course: 47-year-old female with history asthma, heart failure preserved ejection fraction, cardiomyopathy, borderline personality disorder, depression and anxiety, insulin-dependent type 2 diabetes, hypertension, hyperlipidemia, history of DVT/PE on Coumadin, who is morbidly obese with BMI greater than 53 presented to the ED earlier today for evaluation of shortness of breath, productive cough, wheezing, and pleuritic chest pain. She states 1 of her aides at home was ill recently and for the last 2 days has been experiencing the symptoms. Has also had chills but denies any fevers. No sore throat, sinus pain, rhinorrhea, abdominal pain, nausea, vomiting, diarrhea, lightheadedness, headache, palpitations, or chest pressure. She has been using her albuterol nebulizers without much relief. On arrival, patient hypoxic to 85% on room air placed on 2 L supplemental O2 maintaining oximetry 91-93%. She states she does have supplemental O2 at home which she uses only as needed. Vitals otherwise stable. No leukocytosis. Renal function and electrolyte levels normal. Glucose 293. Troponin undetectable, BNP 78. VBG reassuring with pH 7.40, pCO2 45, PO2 52, bicarb 29. Negative for COVID-19, influenza. Chest x-ray negative for any acute cardiopulmonary disease. EKG shows normal sinus rhythm, rate 83, no acute ST/T-wave abnormality, unchanged from prior EKGs. In the ED, has received 125 mg IV methylprednisolone, 2g IV magnesium, and 1L IVNS. Hospital course: Patient was admitted for asthma exacerbation(mild intermittent asthma)-started on nebs, steroids-seems to be improved significantly, now is at baseline. Going home with p.o. steroids. While patient is on p.o. prednisone hold off on medroxyprogesterone . Patient has history of pulmonary embolism on warfarin-initially missed 1 day of warfarin, subsequently warfarin dosing adjusted yesterday and INR is therapeutic again. Will continue home dose of Coumadin . Monitor INR outpatient. Follow-up with PCP outpatient. plan: Complete prednisone 40 mg for 4 days. Follow INR out patiently, further warfarin adjustment outpatient with PCP. Assessment and plan coordination time spent 50 minute. Time Attestation Discharge coordination time: Greater than 30 minutes Quality: Safe Use of Opioids Does Pt have an Active Cancer Diagnosis on the Problem List?: No Quality: Stroke Does the patient have a stroke diagnosis?: No Physical Exam Vital Signs: Vital Signs: Last Vital Signs Temp 98.0 F 01/28/23 07:16 Pulse 62 01/28/23 08:33 Resp 16 01/28/23 08:33 BP 107/52 L 01/28/23 07:16 Pulse Ox 93 01/28/23 07:16 O2 Del Method Nasal Cannula 01/28/23 07:16 O2 Flow Rate 1 01/28/23 07:16 BMI result Body Mass Index 56.5 Appearance: Alert.? Oriented X3.? not in distress.?. cvs: rrr, [id number] , no murmur res: clear to auscultation ,no rhonchii or wheezing abd: no rebound or guarding ,nt, bs present. ext pulses present , no cyanosis . neuro: axo3 , nonfocal. DS: Data Data Completed and Pending Completed studies during hospitalization [Text1]: Procedures Assistance with Respiratory Ventilation, Less than 24 Consecutive Hours, Continuous Positive Airway Pressure (05/19/22) Labs on day of discharge: Laboratory Results - last 24 hr 01/27/23 01/27/23 01/27/23 11:00 16:34 20:00 Hold Purple Top PT INR POC Glucose 301 H 233 H 264 H 01/28/23 01/28/23 06:25 07:18 Hold Purple Top SEE NOTE PT 27.7 H D INR 2.3 H POC Glucose 206 H Preliminary micro results at discharge 01/25/23 13:52 Blood Culture - Preliminary Blood - Venous No growth after 48 hours. 01/25/23 13:43 Blood Culture - Preliminary Blood - Venous No growth after 48 hours. Imaging Chest x-ray: Radiologist's impression: ITS Impressions Chest X-Ray 01/25/23 13:48 IMPRESSION: No acute cardiopulmonary disease. Discharge Plan Discharge Anticipated Discharge Date/Time: 01/28/23 08:45 Patient Disposition: Home Health Service Discharge Diagnosis: asthma excerebation Referrals: [facility] [Other] - 1 Week Maria Guadalupe Severino MD [Primary Care Provider] - 1 Week Discharge Medications: New fluticasone propionate 110 mcg/actuation HFA aerosol inhaler 2 puff inhalation BID Qty: 12 0RF albuterol sulfate 90 mcg/actuation HFA aerosol inhaler 2 inh inhalation Q4H PRN (Reason: shortness of breath or wheezing) Qty: 8.5 0RF Rx Instructions: use proair prednisone 20 mg tablet 40 mg PO DAILY Qty: 8 0RF Continued (DME) FreeStyle [place] 2 [place] Misc See Rx Instructions .ROUTE .MEDSUPPLY Qty: 1 0RF Rx Instructions: As directed (DME) pen needle, diabetic [BD Ultra-Fine Leslie Pen Needle] 32 gauge x 5/32 needle See Rx Instructions .ROUTE .MEDSUPPLY Qty: 100 11RF Rx Instructions: As directed three times a day furosemide 20 mg tablet 1 tab PO DAILY lisinopril 5 mg tablet 1 tab PO DAILY levothyroxine 75 mcg tablet 1 tab PO DAILY loratadine 10 mg tablet 1 tab PO DAILY metoprolol succinate 50 mg tablet extended release 24 hr 1 tab PO DAILY omeprazole 20 mg capsule,delayed release(DR/EC) 1 cap PO DAILY PRN (Reason: gi upset) trazodone 50 mg tablet 1 tab PO BEDTIME sertraline 100 mg tablet 1.5 tab PO QAM clonazepam 1 mg tablet 0.5 tab PO BID PRN (Reason: anxiety) warfarin 5 mg tablet 15 mg PO DAILY@1800 ferrous sulfate 325 mg (65 mg iron) tablet,delayed release (DR/EC) 325 mg PO QAM Farxiga 5 mg tablet 5 mg PO DAILY Toujeo Max U-300 SoloStar 300 unit/mL (3 mL) insulin pen 46 unit subcut QPM Trulicity 3 mg/0.5 mL pen injector 3 mg subcut QWEEK insulin lispro [Humalog KwikPen Insulin] 100 unit/mL insulin pen See Rx Instructions subcut TIDWMEAL Qty: 15 6RF Rx Instructions: 8 u shake, 12 u small meal, 16 u lreg/lrg meal subcutaneously 3 times per day with meals; metformin 1,000 mg tablet 1,000 mg PO BID 90 Days Qty: 180 1RF (DME) FreeStyle [place] 2 Sensor Kit See Rx Instructions .ROUTE .MEDSUPPLY Qty: 2 11RF Rx Instructions: As directed every 2 weeks Held medroxyprogesterone 10 mg tablet 1 tab PO DAILY Hold Instructions: Resume on 02/01/23. Discharge Orders: Discharge Order (Routine); Ordered 01/28/23 Ordered By: Darya Patel Diet: Advance to usual diet Activity on Discharge: As tolerated Stand Alone Forms: Patient Portal Discharge page Care Plan Goals: Patient was admitted for asthma exacerbation(mild intermittent asthma)-started on nebs, steroids-seems to be improved significantly, now is at baseline. Going home with p.o. steroids. While patient is on p.o. prednisone hold off on medroxyprogesterone . Patient has history of pulmonary embolism on warfarin-initially missed 1 day of warfarin, subsequently warfarin dosing adjusted yesterday and INR is therapeutic again. Will continue home dose of Coumadin . Monitor INR outpatient. Follow-up with PCP outpatient. Health Concerns: As above. Plan of Treatment: As above. Assessment: As above. Discharge Date/Time: 01/28/23 11:08
--- NOTE | 2023-01-28 09:19 | MHC.CM.PN ---
pt dcd home with resumption of vna /lock box pace servirs and chd servies
[2023-01-28] MEDS: predniSONE 20 MG TABLET 40 MG PO (09:42)
[2023-01-28] MEDS: clonazePAM 0.5 MG TABLET PO (10:45)
== END 2023-01-28 11:08 | disposition home health service (06) | DRG 141 ==
LOC: HO.ED 17:12 → HO.EDOVER 18:47 → HO.S3 21:31
PROVIDERS: Admitting Provider Physician Assistant; Emergency Provider Emergency Medicine; PCP Internal Medicine; Visit Provider Internal Medicine
DX: J45.21 Mild intermittent asthma with (acute) exacerbation (principal); J96.01 Acute respiratory failure with hypoxia; E66.2 Morbid (severe) obesity with alveolar hypoventilation; Z68.43 Body mass index [BMI] 50.0-59.9, adult; I42.9 Cardiomyopathy, unspecified; E11.65 Type 2 diabetes mellitus with hyperglycemia; F60.3 Borderline personality disorder; E03.9 Hypothyroidism, unspecified; R79.1 Abnormal coagulation profile; I50.22 Chronic systolic (congestive) heart failure; Z20.822 Contact with and (suspected) exposure to COVID-19; Z91.040 Latex allergy status; Z87.891 Personal history of nicotine dependence; Z86.711 Personal history of pulmonary embolism; Z79.4 Long term (current) use of insulin; Z79.01 Long term (current) use of anticoagulants; Z79.84 Long term (current) use of oral hypoglycemic drugs; Z79.890 Hormone replacement therapy; Z79.899 Other long term (current) drug therapy
CPT/HCPCS: 36415; 71045; 80048; 80076; 82803; 82947; 83605; 83880; 84484; 85025; 85379; 85610; 87040; 87502; 87633; 87635; 93005; 94640; 99285; J2920; J2930; J3475

== ENCOUNTER → 2023-01-25 18:16 | Outpatient (BNV) | payer OTHER, SELFPAY | PROVIDERS: Admitting Provider Physician Assistant; Emergency Provider Emergency Medicine; PCP Internal Medicine; Visit Provider Physician Assistant | DX: J96.01 Acute respiratory failure with hypoxia (principal); J45.901 Unspecified asthma with (acute) exacerbation; E66.2 Morbid (severe) obesity with alveolar hypoventilation; Z68.43 Body mass index [BMI] 50.0-59.9, adult | CPT/HCPCS: 99223; 99231; 99232; 99239 ==

== ENCOUNTER 2023-02-28 00:23 | Emergency (ER) | payer OTHER, SELFPAY ==
--- NOTE | ~2023-02-28 | CT_ITS ---
EXAMINATION: CT ABDOMEN AND PELVIS WITH CONTRAST CLINICAL INFORMATION: Left-sided pain COMPARISON: 04/26/2021 TECHNIQUE: Multidetector volumetric images were obtained from the superior aspect of the liver through the pubic symphysis following administration 100 mL of Omnipaque 350 intravenous contrast. Sagittal and coronal reformatted images were obtained on the technologist's workstation. Oral contrast: No This CT examination was performed using dose optimization techniques as appropriate, variously including the following: *Automated exposure control *Adjustment of mA and/or kV according to patient size (this includes techniques or standardized protocols for targeted exams where dose is matched to indication/reason for exam; i.e. extremities or head) *Use of iterative reconstruction technique DLP: 1866 mGy-cm FINDINGS: LUNG BASES: Subsegmental bibasilar atelectasis. LIVER, GALLBLADDER, AND BILIARY TREE: The liver is normal in size, shape, and attenuation. No focal hepatic lesion or biliary ductal dilatation is present. Multiple gallstones are present. No appreciable gallbladder wall thickening or surrounding inflammation. PANCREAS: Unremarkable. SPLEEN: Unremarkable. ADRENAL GLANDS: Unremarkable. KIDNEYS AND URETERS: Bilateral nephrograms are symmetric. No hydronephrosis or obstructing calculus identified. BLADDER: Unremarkable. GASTROINTESTINAL TRACT: No evidence of bowel obstruction or significant wall thickening. The appendix is unremarkable. No free fluid or free air is seen. ABDOMINAL WALL: No significant hernia is appreciated. LYMPH NODES: Normal. VASCULAR: Unremarkable. PELVIC VISCERA: Unremarkable. OSSEOUS STRUCTURES: Unremarkable. CT/CT abdomen pelvis w IV con IMPRESSION: No acute findings identified in the abdomen/pelvis. Cholelithiasis.
--- NOTE | ~2023-02-28 | XR_ITS ---
EXAMINATION: XR CHEST CLINICAL INFORMATION: Left-sided pain COMPARISON: 01/25/2023 TECHNIQUE: 2 views of the chest were obtained. FINDINGS: Lung volumes are symmetric. No definite consolidation is seen. Central vasculature is mildly prominent, without overt edema. No appreciable pneumothorax or significant pleural effusion. Cardiac silhouette remains mildly enlarged. Sternal wires are present. No acute osseous findings are seen. XR/XR chest 2V IMPRESSION: Mildly prominent central vasculature which may reflect mild congestion without overt edema. Mildly enlarged cardiac silhouette.
[2023-02-28 00:34] VITALS: BP 106/80; BP 112/66; PULSE 100; PULSE 92; RESP 16; TEMP 37; O2SAT 94; BMI 57.2
[2023-02-28 01:30] LABS: MANUAL DIFF FLAG NO
[2023-02-28 01:32] LABS: Glucose, Whole Blood 131 mg/dL (60-115)
[2023-02-28 01:34] LABS: Basophils Absolute Auto 0.1 X10*3/uL (0.0-0.2); Basophils Percent Auto 0.7 % (0-2); Eosinophils Absolute Auto 0.2 X10*3/uL (0.0-0.4); Eosinophils Percent Auto 2.1 % (0-4); Hematocrit 47.4 % (37.0-47.0); Imm Gran Abs Auto 0.04 X10*3/uL (0.00-0.03); Imm Gran Pct Auto 0.4 % (0.0-0.4); Lymphocytes Absolute Auto 2.5 X10*3/uL (1.2-4.9); Lymphocytes Percent Auto 26.4 % (20-40); Mean Corpuscular HGB Conc 31.6 g/dl (31.0-35.0); Mean Corpuscular Hemoglobin 28.8 pg (27.0-33.0); Mean Platelet Volume 10.7 fL (9.4-12.3); Monocytes Absolute Auto 0.7 X10*3/uL (0.1-1.2); Monocytes Percent Auto 7.4 % (2-11); Platelet Count 286 X10*3/uL (160-400); Red Blood Count 5.21 X10*6/uL (4.20-5.50); Red Cell Distribution Width 14.9 % (11.0-16.0); White Blood Count 9.5 X10*3/uL (4.8-10.8)
[2023-02-28 01:40] LABS: INTERNATIONAL NORM RATIO 1.5 (0.9-1.1); Prothrombin Time 17.7 SEC (11.1-13.3)
[2023-02-28 01:47] LABS: Alanine Aminotransferase 14 U/L (0-31); Alkaline Phosphatase 73 U/L (39-117); Anion Gap 16 (12-20); Aspartate Amino Transferase 15 U/L (5-31); Bilirubin Total 0.4 mg/dL (0.0-1.0); Blood Urea Nitrogen 12 mg/dL (9-16); Calcium 9.4 mg/dL (8.4-10.2); Carbon Dioxide 28 mmol/L (22-29); Chloride 103 mmol/L (96-108); Creatinine Clr Calc Pharmacy 104.7; Estimated Glomerular Filt Rate 55; Glucose Random 126 mg/dL (60-115); Potassium 3.8 mmol/L (3.3-5.1); Sodium 143 mmol/L (135-145); Total Protein 7.5 g/dL (6.5-8.0)
[2023-02-28 02:00] VITALS: BP 116/70; PULSE 90; RESP 16; TEMP 37; O2SAT 95
--- NOTE | 2023-02-28 02:10 | ED_ITS ---
HPI - General Adult General Chief complaint: Abdominal Pain Stated complaint: Left abdomen pain, stabbing pain Time Seen by Provider: 02/28/23 01:58 History of Present Illness HPI narrative: The patient is a 47-year-old woman who has multiple medical problems including morbid obesity and a history of significant thromboembolic problems. She is on warfarin. She lives alone in her own apartment. She has assistance. She is able to walk with a walker. The patient says that she has had pain on her left side for about 3 or 4 days. She indicates pain in the left abdomen radiating to the left flank. She says that her stools have been looser over the last several days and they have also been foul smelling. She has been on no antibiotics recently. She does not know if she has had a fever. Patient has a history of IBS she says. She also has history of kidney stones. She is not certain if the pain she is currently experiencing is more related to her bowels or her kidney problems. She thinks possibly her kidney. She is on home oxygen. Related Data Home Medications Medication Instructions Recorded Confirmed furosemide 20 mg tablet 1 tab PO DAILY 05/26/21 01/25/23 levothyroxine 75 mcg tablet 1 tab PO DAILY 05/26/21 01/25/23 lisinopril 5 mg tablet 1 tab PO DAILY 05/26/21 01/25/23 loratadine 10 mg tablet 1 tab PO DAILY 05/26/21 01/25/23 metoprolol succinate 50 mg 1 tab PO DAILY 05/26/21 01/25/23 tablet,extended release 24 hr omeprazole 20 mg capsule,delayed 1 cap PO DAILY PRN gi upset 05/26/21 01/25/23 release trazodone 50 mg tablet 1 tab PO BEDTIME 05/26/21 01/25/23 clonazepam 1 mg tablet 0.5 tab PO BID PRN anxiety 07/14/21 01/25/23 medroxyprogesterone 10 mg tablet 1 tab PO DAILY 07/14/21 01/25/23 warfarin 5 mg tablet 15 mg PO DAILY@1800 07/14/21 01/25/23 sertraline 100 mg tablet 1.5 tab PO QAM 07/22/21 01/25/23 dapagliflozin propanediol 5 mg 5 mg PO DAILY 12/13/22 01/25/23 tablet (Farxiga) ferrous sulfate 325 mg (65 mg 325 mg PO QAM 12/13/22 01/25/23 iron) tablet,delayed release insulin glargine U-300 conc 300 46 unit subcut QPM 12/13/22 01/25/23 unit/mL (3 mL) subcutaneous pen (Toujeo Max U-300 SoloStar) dulaglutide 3 mg/0.5 mL 3 mg subcut QWEEK 01/25/23 01/25/23 subcutaneous pen injector (Trulicity) Previous Rx's Medication Instructions Recorded flash glucose sensor (FreeStyle #2 ea 06/23/21 Shelby 2 Sensor kit) flash glucose scanning reader #1 ea 07/22/21 (FreeStyle [place] 2 [place]) pen needle, diabetic 32 gauge x #100 ea 09/04/21 (BD Ultra-Fine Leslie Pen Needle) insulin lispro 100 unit/mL See Rx Instructions subcut 09/22/21 subcutaneous pen (Humalog KwikPen TIDWMEAL #15 mL (U-100) Insulin) metformin 1,000 mg tablet 1,000 mg PO BID 90 days #180 tabs 09/22/21 albuterol sulfate 90 mcg/actuation 2 inh inhalation Q4H PRN shortness 01/28/23 aerosol inhaler of breath or wheezing #8.5 grams fluticasone propionate 110 2 puff inhalation BID #12 grams 01/28/23 mcg/actuation HFA aerosol inhaler prednisone 20 mg tablet 40 mg (2 x 20 mg) PO DAILY #8 tabs 01/28/23 Allergies Allergy/AdvReac Type Severity Reaction Status Date / Time Penicillins [PENICILLINS] Allergy Intermediate HIVES Verified 02/28/23 01:23 egg [Egg] Allergy Mild SWELLING Verified 02/28/23 01:23 aspirin Allergy Unknown Unknown Verified 02/28/23 01:23 bee pollen [BEE STINGS] Allergy Unknown UNKNOWN Verified 02/28/23 01:23 lactose [LACTOSE] Allergy Unknown UNKNOWN Verified 02/28/23 01:23 latex [LATEX] Allergy Unknown HIVES Verified 02/28/23 01:23 oxycodone Allergy Unknown Unknown Verified 02/28/23 01:23 peanut [PEANUT] Allergy Unknown UNKNOWN Verified 02/28/23 01:23 penicillin V Allergy Unknown Unknown Verified 02/28/23 01:23 kiwi Allergy Anaphylaxis Verified 02/28/23 01:23 eggs,bees,latex,peanuts Allergy Unknown Unknown Uncoded 02/28/23 01:23 medical tape Allergy Unknown Unknown Uncoded 02/28/23 01:23 TAPE,PLASTIC Allergy Unknown RASH Uncoded 02/28/23 01:23 Review of Systems 2 Review of Systems: Yes all other systems are reviewed and are negative PMFSH Past Medical History Medical History Recurrent major depression PTSD (post-traumatic stress disorder) Acute hyperglycemia Proteinuria Obesity due to excess calories Hyperlipidemia LDL goal <70 Cardiomyopathy DVT (deep vein thrombosis) in Gallstones ROGERIO (obstructive sleep apnea) Pancreatitis BMI 50.0-59.9, adult Essential hypertension Diabetes type 2, uncontrolled Diabetes mellitus, type 2 CHF (congestive heart failure) Mood disorder Irritable bowel Hypothyroidism Depression Anxiety PTSD (post-traumatic stress disorder) Asthma Hypertension Pulmonary embolism Surgical History History of dental surgery History of open heart surgery Hx of removal of cyst Hx of hernia repair Family History Family History Paternal Grandmother Diabetes Social History Social History Household Members: None Housing: Apartment Housing Other:: 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 Do you presently have visiting nurse or other home services: Yes Unable to assess alcohol history related to: Refusing to respond Alcohol intake: current Alcohol intake frequency: holidays/special occasions only Comment: patient sleeping Patient Tobacco Use Status: Former Tobacco user Tobacco use type: Cigarette Smoked in Last 30 Days: No e-Cigarette/Vaping Use: Never Used Second Hand Smoke Exposure: Yes (others at her apartment complex) Use of substances other than those prescribed or required for medical reasons: No Substance Use Type: Marijuana Advance Directives: No Advance Directives Information Provided: No Patient : No service: No Current occupational status: disabled Sexual orientation: Lesbian/Good/Homosexual Physical Exam ED Vital Signs: Vital Signs - 24 hr 02/28/23 00:34 02/28/23 02:00 02/28/23 04:09 Temperature 98.6 F 98.6 F 98.7 F Pulse Rate 92 90 88 Respiratory Rate 16 16 20 Blood Pressure 112/66 116/70 106/63 Pulse Oximetry 94 95 94 Oxygen Delivery Method Nasal Cannula Nasal Cannula Nasal Cannula Oxygen Flow Rate 2 2 02/28/23 07:44 Temperature 98.2 F Pulse Rate 95 Respiratory Rate 18 Blood Pressure 110/53 L Pulse Oximetry 93 Oxygen Delivery Method Room Air Oxygen Flow Rate BMI result Body Mass Index 57.2 Const Other: The patient is a morbidly obese 47-year-old woman who is on oxygen (she is normally on oxygen) who is awake and alert. She is very pleasant. She does not seem in obvious discomfort or obviously toxic. HENMT Other: Face is symmetrical. Mucous membranes moist. Eyes Other: Pupils are round equal, conjunctivae clear, no scleral icterus Neck Other: The patient has a thick neck. No apparent JVD. Resp Other: Lungs are clear bilaterally Cardio Other: Regular rate and rhythm without murmur GI Other: Possibly some mild left-sided abdominal tenderness but certainly no marked tenderness. Back/Spine/Pelvis Other: Patient seemed to have left-sided CVA percussion tenderness. Skin Other: Skin is dry and unremarkable. Neuro Other: The patient is awake and alert. Speech is clear. Face is symmetrical. She moves her extremities symmetrically Extrem Other: Patient has large lower legs but no calf tenderness or swelling or asymmetry. Medications Administered Discontinued Medications Generic Name Dose Route Start Last Admin Trade Name Freq PRN Reason Stop Dose Admin Iohexol 100 ml 02/28/23 03:30 02/28/23 03:31 Iohexol 350 Mg/Ml 100 Ml Infus..Btl IV 02/28/23 03:31 100 ml ONCE ONE Administration Morphine Sulfate 4 mg 02/28/23 02:09 02/28/23 03:16 Morphine Sulfate 4 Mg/Ml Cartridge IVPUSH 02/28/23 02:10 4 mg ONCE ONE Administration Protocol Medical Decision Making Medical Decision Making MDM Narrative: Patient is a 47-year-old with multiple medical problems who is here for left flank pain. She also describes having looser foul-smelling stools. No melena. The patient is on warfarin. She reports her remote history of kidney stones as well. Based on her initial description of her symptoms was not clear if her symptoms might represent an acute intra-abdominal problem or possibly a kidney stone. However she had no blood in her urine. CT of her abdomen and pelvis is unremarkable. A chest x-ray is also unremarkable. Labs are also fairly unremarkable aside from an INR of 1.5. Overall I felt my workup was a negative workup. The patient seemed clinically stable. I spoke to the patient about her subtherapeutic INR. She was offered coverage with enoxaparin. She reports an allergy to enoxaparin (she says it provokes vomiting). Overall she seems to be feeling better and seemed to be comfortable with the idea of going home. She should follow up with her regular doctor. She was also advised to contact the [facility] which normally advises her warfarin use. She should return if worse. Lab Data 02/28/23 01:25 02/28/23 01:25 Labs: Lab Results 02/28/23 02/28/23 02/28/23 Range/Units 00:33 01:25 02:28 WBC 9.5 (4.8-10.8) X10*3/uL RBC 5.21 (4.20-5.50) X10*6/uL Hgb 15.0 (12.0-16.0) g/dl Hct 47.4 H (37.0-47.0) % MCV 91.0 (80.0-98.0) fL MCH 28.8 (27.0-33.0) pg MCHC 31.6 (31.0-35.0) g/dl RDW 14.9 (11.0-16.0) % Plt Count 286 (160-400) X10*3/uL MPV 10.7 (9.4-12.3) fL Immature Gran % (Auto) 0.4 (0.0-0.4) % Neut % (Auto) 63.0 (45-73) % Lymph % (Auto) 26.4 (20-40) % [place] % (Auto) 7.4 (2-11) % Eos % (Auto) 2.1 (0-4) % Baso % (Auto) 0.7 (0-2) % Lymph # (Auto) 2.5 (1.2-4.9) X10*3/uL [place] # (Auto) 0.7 (0.1-1.2) X10*3/uL Eos # (Auto) 0.2 (0.0-0.4) X10*3/uL Baso # (Auto) 0.1 (0.0-0.2) X10*3/uL Abs Immat Gran (auto) 0.04 H (0.00-0.03) X10*3/uL Absolute Neuts (auto) 6.0 (2.0-8.3) x10*3/uL Absolute Nucleated RBC 0.000 (0.0-0.012) X10*3/uL Nucleated RBC % (auto) 0.0 (0.0-0.2) /100WBC PT 17.7 H D (11.1-13.3) SEC INR 1.5 H (0.9-1.1) Sodium 143 (135-145) mmol/L Potassium 3.8 (3.3-5.1) mmol/L Chloride 103 (96-108) mmol/L Carbon Dioxide 28 (22-29) mmol/L Anion Gap 16 (12-20) BUN 12 (9-16) mg/dL Creatinine 1.07 (0.5-1.4) mg/dL Estim Creat Clear Calc 104.7 Estimated GFR 55 POC Glucose 131 H (60-115) mg/dL Random Glucose 126 H (60-115) mg/dL Calcium 9.4 (8.4-10.2) mg/dL Total Bilirubin 0.4 (0.0-1.0) mg/dL AST 15 (5-31) U/L ALT 14 (0-31) U/L Alkaline Phosphatase 73 (39-117) U/L Troponin I High Sens < 2.7 (<3.5-17.0) ng/L C-Reactive Protein 1.30 H (< or = 0.50) mg/dL B-Natriuretic Peptide 25 (<100) pg/mL Total Protein 7.5 (6.5-8.0) g/dL Albumin 4.0 (3.5-5.0) g/dL Urine Color Yellow Urine Appearance Clear Urine pH 6.0 (5.0-9.0) Ur Specific [place] 1.010 (1.005-1.025) Urine Protein Negative (Neg-Trace) mg/dL Urine Glucose (UA) >=1000 H (Negative) mg/dL Urine Ketones Negative (Negative) mg/dL Urine Blood Negative (Negative) Urine Nitrite Negative (Negative) Ur Leukocyte Esterase Negative (Negative) Urine RBC 0-2 (0-2) /HPF Urine WBC 0-5 (0-5) /HPF Ur Squamous Epith Cells 6-10 (0-2) /HPF Urine Bacteria Trace (None Seen) Hyaline Casts 0-2 (0-2) /LPF Discharge Plan Discharge Clinical Impression: Left flank pain Patient Disposition: Home, Self-Care Additional Instructions: Your testing in the emergency room today seems reassuring. Neither your CT scan or your x-ray or your blood tests suggest any obvious acute changes process. Your INR today however was a bit low at 1.5. Please contact the office which helps to manage your anticoagulation (your Coumadin dosing or your warfarin dosing) and explain we found your INR at 1.5. They should be able to make recommendations to help improve your INR. Please follow-up soon with your regular doctor. Return to the emergency room if you are feeling worse. Prescriptions: No Action (DME) FreeStCEPA Safe Drive [place] 2 [place] Misc See Rx Instructions .ROUTE .MEDSUPPLY Qty: 1 0RF Rx Instructions: As directed (DME) pen needle, diabetic [BD Ultra-Fine Leslie Pen Needle] 32 gauge x 5/32 needle See Rx Instructions .ROUTE .MEDSUPPLY Qty: 100 11RF Rx Instructions: As directed three times a day furosemide 20 mg tablet 1 tab PO DAILY lisinopril 5 mg tablet 1 tab PO DAILY levothyroxine 75 mcg tablet 1 tab PO DAILY loratadine 10 mg tablet 1 tab PO DAILY metoprolol succinate 50 mg tablet extended release 24 hr 1 tab PO DAILY omeprazole 20 mg capsule,delayed release(DR/EC) 1 cap PO DAILY PRN (Reason: gi upset) trazodone 50 mg tablet 1 tab PO BEDTIME sertraline 100 mg tablet 1.5 tab PO QAM medroxyprogesterone 10 mg tablet 1 tab PO DAILY Hold Instructions: Resume on 02/01/23. clonazepam 1 mg tablet 0.5 tab PO BID PRN (Reason: anxiety) warfarin 5 mg tablet 15 mg PO DAILY@1800 ferrous sulfate 325 mg (65 mg iron) tablet,delayed release (DR/EC) 325 mg PO QAM Farxiga 5 mg tablet 5 mg PO DAILY Toujeo Max U-300 SoloStar 300 unit/mL (3 mL) insulin pen 46 unit subcut QPM Trulicity 3 mg/0.5 mL pen injector 3 mg subcut QWEEK fluticasone propionate 110 mcg/actuation HFA aerosol inhaler 2 puff inhalation BID Qty: 12 0RF albuterol sulfate 90 mcg/actuation HFA aerosol inhaler 2 inh inhalation Q4H PRN (Reason: shortness of breath or wheezing) Qty: 8.5 0RF Rx Instructions: use proair prednisone 20 mg tablet 40 mg PO DAILY Qty: 8 0RF insulin lispro [Humalog KwikPen Insulin] 100 unit/mL insulin pen See Rx Instructions subcut TIDWMEAL Qty: 15 6RF Rx Instructions: 8 u shake, 12 u small meal, 16 u lreg/lrg meal subcutaneously 3 times per day with meals; metformin 1,000 mg tablet 1,000 mg PO BID 90 Days Qty: 180 1RF (DME) FreeStyle [place] 2 Sensor Kit See Rx Instructions .ROUTE .MEDSUPPLY Qty: 2 11RF Rx Instructions: As directed every 2 weeks Referrals: Maria Guadalupe Severino MD [Primary Care Provider] -
[2023-02-28 02:49] LABS: Bacteria Urine Trace (None Seen); Hyaline Casts Urine 0-2 /LPF (0-2); RBC Urine 0-2 /HPF (0-2); WBC Urine 0-5 /HPF (0-5)
[2023-02-28 02:55] LABS: Appearance Urine Clear; Color Urine Yellow; Glucose Urine UA >=1000 mg/dL (Negative); Leukocyte Esterase Urine Negative (Negative); Nitrite Urine Negative (Negative); UMIC TRIGGER UACC YES; Urine Blood Negative (Negative); Urine Ketones Negative (Negative); Urine Protein Negative (Neg-Trace)
--- NOTE | 2023-02-28 03:08 | ECG_ITS ---
Test Reason : pain Blood Pressure : / mmHG Vent. Rate : 093 BPM Atrial Rate : 093 BPM P-R Int : 182 ms QRS Dur : 082 ms QT Int : 402 ms P-R-T Axes : 054 109 102 degrees QTc Int : 499 ms Normal sinus rhythm Rightward axis Anterior infarct (cited on or before 07-DEC-2022) Abnormal ECG When compared with ECG of 25-JAN-2023 13:40, No significant change was found Referred By: Robin Covington Electronically Signed By:TATE GEORGE
[2023-02-28] MEDS: Morphine Sulfate 4 MG/ML CARTRIDGE IVPUSH (03:16)
[2023-02-28] MEDS: iohexoL 350 MG/ML 100 ML INFUS..BTL IV (03:31)
[2023-02-28 04:09] VITALS: BP 106/63; PULSE 88; RESP 20; TEMP 37.1; O2SAT 94
[2023-02-28 04:30] LABS: B Type Natriuretic Peptide 25 pg/mL (<100); Troponin-I High Sensitivity < 2.7 ng/L (<3.5-17.0)
--- NOTE | 2023-02-28 05:44 | MHC.EDTECH ---
CALL OUT TO [facility] AT 0541 TO BOOK TRANSPORT FOR PT, ESTIMATED ETA GIVEN [phone]
[2023-02-28 07:44] VITALS: BP 110/53; PULSE 95; RESP 18; TEMP 36.8; O2SAT 93
== END 2023-02-28 08:00 | disposition home or self-care (01) ==
PROVIDERS: Emergency Provider Emergency Medicine; PCP Internal Medicine
DX: R10.9 Unspecified abdominal pain (principal); R06.02 Shortness of breath; R94.31 Abnormal electrocardiogram [ECG] [EKG]; Z79.01 Long term (current) use of anticoagulants; Z79.899 Other long term (current) drug therapy
CPT/HCPCS: 36415; 71046; 74177; 80053; 81001; 82947; 83880; 84484; 85025; 85610; 86140; 93005; 96374; 99284; 99285; J2270; Q9967

== ENCOUNTER → 2023-02-28 03:08 | Outpatient (BNV) | payer OTHER, SELFPAY | PROVIDERS: Emergency Provider Emergency Medicine; PCP Internal Medicine; Visit Provider Internal Medicine | DX: R94.31 Abnormal electrocardiogram [ECG] [EKG] (principal) | CPT/HCPCS: 93010 ==

== ENCOUNTER 2023-06-17 13:50 | Emergency (ER) | payer OTHER, SELFPAY ==
--- NOTE | ~2023-06-17 | CT_ITS ---
EXAMINATION: CT HEAD WITHOUT CONTRAST CLINICAL INFORMATION: Severe headache patient on anticoagulation COMPARISON: 05/15/2020 TECHNIQUE: Contiguous axial imaging was performed from the skull base to vertex without intravenous administration of contrast. This CT examination was performed using dose optimization techniques as appropriate, variously including the following: *Automated exposure control *Adjustment of mA and/or kV according to patient size (this includes techniques or standardized protocols for targeted exams where dose is matched to indication/reason for exam; i.e. extremities or head) *Use of iterative reconstruction technique DLP: 867 mGy-cm FINDINGS: There is no evidence of acute intracranial hemorrhage masses or midline shift. No acute territorial infarcts. There are no masses. There is small area of low attenuation, unchanged since previous study in the left periventricular white matter. There is cavum septum pellucidum at verge Paranasal sinuses are well aerated and mastoids are patent.. CT/CT head/brain wo IV con IMPRESSION: No acute abnormalities.
[2023-06-17 14:14] LABS: Glucose, Whole Blood 249 mg/dL (60-115)
[2023-06-17 14:15] VITALS: BP 102/51; PULSE 93; RESP 16; TEMP 36.4; O2SAT 95; BMI 57.1
--- NOTE | 2023-06-17 14:22 | ED_ITS ---
HPI - Headache General Chief Complaint: Headache Stated Complaint: MATA W/ BLURRED VISION PER EMS Time Seen by Provider: 06/17/23 13:52 Source: patient, EMS, RN notes reviewed and old records reviewed Mode of arrival: EMS Limitations: no limitations History of Present Illness HPI Narrative: 48-year-old female with a history of personality disorder, PE/DVTs on Coumadin, HTN, asthma, chronic hypoxic respiratory failure on chronic supplemental oxygen, CHF, ROGERIO, cardiomyopathy, morbid obesity, DM2, HTN who presents to the ER from home for evaluation of a sudden 10/10 headache that started at 12:30 today. Patient reports that her blood pressure has been ?all over the place, up and down. ? she does not know the numbers her blood pressures have been reading. She has nurses that come into the home and help take care of her. She states today she developed a throbbing headache in her bilateral temples around 12 30. At the time she also had some blurred vision in the right worse than left. She admits to increased stress and anxiety. She is in the process of switching her landlord who is trying to evict her. She states her headache is slightly better but is still present. Her vision is now normal. EMS took her blood pressure 3 times and it was anywhere from 80s to 100 systolic. MD elicited complaint: headache Pertinent past history: hypertension Onset (ago): hour(s) (2) Onset description: suddenly Location: temporal Severity: severe Pain scale (0-10): 10 Quality & Timing: throbbing Exacerbating factors: none Relieving factors: rest Context: occurred at rest Associated symptoms: photophobia Treatments prior to arrival: none Related Data Home Medications Medication Instructions Recorded Confirmed furosemide 20 mg tablet 1 tab PO DAILY 05/26/21 01/25/23 levothyroxine 75 mcg tablet 1 tab PO DAILY 05/26/21 01/25/23 lisinopril 5 mg tablet 1 tab PO DAILY 05/26/21 01/25/23 loratadine 10 mg tablet 1 tab PO DAILY 05/26/21 01/25/23 metoprolol succinate 50 mg 1 tab PO DAILY 05/26/21 01/25/23 tablet,extended release 24 hr omeprazole 20 mg capsule,delayed 1 cap PO DAILY PRN gi upset 05/26/21 01/25/23 release trazodone 50 mg tablet 1 tab PO BEDTIME 05/26/21 01/25/23 clonazepam 1 mg tablet 0.5 tab PO BID PRN anxiety 07/14/21 01/25/23 medroxyprogesterone 10 mg tablet 1 tab PO DAILY 07/14/21 01/25/23 warfarin 5 mg tablet 15 mg PO DAILY@1800 07/14/21 01/25/23 sertraline 100 mg tablet 1.5 tab PO QAM 07/22/21 01/25/23 dapagliflozin propanediol 5 mg 5 mg PO DAILY 12/13/22 01/25/23 tablet (Farxiga) ferrous sulfate 325 mg (65 mg 325 mg PO QAM 12/13/22 01/25/23 iron) tablet,delayed release insulin glargine U-300 conc 300 46 unit subcut QPM 12/13/22 01/25/23 unit/mL (3 mL) subcutaneous pen (Toujeo Max U-300 SoloStar) dulaglutide 3 mg/0.5 mL 3 mg subcut QWEEK 01/25/23 01/25/23 subcutaneous pen injector (TrulicCrazy [employer]) Previous Rx's Medication Instructions Recorded flash glucose sensor (FreeStyle #2 ea 06/23/21 Shelby 2 Sensor kit) flash glucose scanning reader #1 ea 07/22/21 (FreeStyle [place] 2 [place]) pen needle, diabetic 32 gauge x #100 ea 09/04/21 (BD Ultra-Fine Leslie Pen Needle) insulin lispro 100 unit/mL See Rx Instructions subcut 09/22/21 subcutaneous pen (Humalog KwikPen TIDWMEAL #15 mL (U-100) Insulin) metformin 1,000 mg tablet 1,000 mg PO BID 90 days #180 tabs 09/22/21 albuterol sulfate 90 mcg/actuation 2 inh inhalation Q4H PRN shortness 01/28/23 aerosol inhaler of breath or wheezing #8.5 grams fluticasone propionate 110 2 puff inhalation BID #12 grams 01/28/23 mcg/actuation HFA aerosol inhaler prednisone 20 mg tablet 40 mg (2 x 20 mg) PO DAILY #8 tabs 01/28/23 Allergies Allergy/AdvReac Type Severity Reaction Status Date / Time Penicillins [PENICILLINS] Allergy Intermediate HIVES Verified 02/28/23 01:23 egg [Egg] Allergy Mild SWELLING Verified 02/28/23 01:23 aspirin Allergy Unknown Unknown Verified 02/28/23 01:23 bee pollen [BEE STINGS] Allergy Unknown UNKNOWN Verified 02/28/23 01:23 lactose [LACTOSE] Allergy Unknown UNKNOWN Verified 02/28/23 01:23 latex [LATEX] Allergy Unknown HIVES Verified 02/28/23 01:23 oxycodone Allergy Unknown Unknown Verified 02/28/23 01:23 peanut [PEANUT] Allergy Unknown UNKNOWN Verified 02/28/23 01:23 penicillin V Allergy Unknown Unknown Verified 02/28/23 01:23 kiwi Allergy Anaphylaxis Verified 02/28/23 01:23 eggs,bees,latex,peanuts Allergy Unknown Unknown Uncoded 02/28/23 01:23 medical tape Allergy Unknown Unknown Uncoded 02/28/23 01:23 TAPE,PLASTIC Allergy Unknown RASH Uncoded 02/28/23 01:23 Review of Systems 2 Review of Systems: Yes all other systems are reviewed and are negative PMFSH Past Medical History Medical History Recurrent major depression PTSD (post-traumatic stress disorder) Acute hyperglycemia Proteinuria Obesity due to excess calories Hyperlipidemia LDL goal <70 Cardiomyopathy DVT (deep vein thrombosis) in Gallstones ROGERIO (obstructive sleep apnea) Pancreatitis BMI 50.0-59.9, adult Essential hypertension Diabetes type 2, uncontrolled Diabetes mellitus, type 2 CHF (congestive heart failure) Mood disorder Irritable bowel Hypothyroidism Depression Anxiety PTSD (post-traumatic stress disorder) Asthma Hypertension Pulmonary embolism Surgical History History of dental surgery History of open heart surgery Hx of removal of cyst Hx of hernia repair Family History Family History Paternal Grandmother Diabetes Social History Social History Household Members: None Housing: Apartment Housing Other:: Has ADULT CAREGIVER twice a day. Do you presently have visiting nurse or other home services: Yes Unable to assess alcohol history related to: Refusing to respond Alcohol intake: current Alcohol intake frequency: holidays/special occasions only Comment: patient sleeping Patient Tobacco Use Status: Former Tobacco user Tobacco use type: Cigarette Smoked in Last 30 Days: No e-Cigarette/Vaping Use: Never Used Second Hand Smoke Exposure: Yes (others at her apartment complex) Use of substances other than those prescribed or required for medical reasons: No Substance Use Type: Marijuana Advance Directives: No Advance Directives Information Provided: No Patient : No service: No Current occupational status: disabled Sexual orientation: Lesbian/Good/Homosexual Physical Exam 2 Vital Signs: Vital Signs: Last Vital Signs Temp 97.5 F 06/17/23 14:15 Pulse 98 06/17/23 15:07 Resp 18 06/17/23 15:07 BP 132/77 06/17/23 15:07 Pulse Ox 90 L 06/17/23 15:07 O2 Del Method Nasal Cannula 06/17/23 15:07 O2 Flow Rate 2 06/17/23 15:07 Oxygen Flow Rate 2.5 06/17/23 14:15 BMI result Body Mass Index 57.1 Appearance: Alert. Oriented X3. No acute distress. Head: normocephalic, atraumatic. Eyes: Pupils equal, round and reactive to light. crusting of the right eye ENT: Pharynx normal. No tonsillar swelling or exudate. Neck: Normal inspection. Neck supple. CVS: Normal heart rate and rhythm. Pulses normal. Respiratory: No respiratory distress. Breath sounds diminished throughout without wheezes or rhonchi Abdomen: Obese, Soft and nontender. +BS x4 Skin: Skin warm and dry. Normal skin color. Normal skin turgor. No rashes. Extremities: No lower extremity edema. No joint swelling. Neuro/psych: Oriented X 3. No motor deficit. No sensory deficit. CN II-XII intact. Normal speech and cognition. Course Reevaluation(s) Reevaluation #1: headache improved after tylenol Time: 16:00 Medications Administered Discontinued Medications Generic Name Dose Route Start Last Admin Trade Name Osminq PRN Reason Stop Dose Admin Acetaminophen 975 mg 06/17/23 14:25 06/17/23 15:09 Acetaminophen 325 Mg Tablet PO 06/17/23 14:26 975 mg ONCE ONE Administration Magnesium Oxide 800 mg 06/17/23 14:58 06/17/23 15:13 Magnesium Oxide 400 Mg Tablet PO 06/17/23 14:59 800 mg ONCE ONE Administration Medical Decision Making Medical Decision Making MDM Narrative: 48 yo female with multiple medical problems, multiple psychiatric problems who is under significant stress at home presents to the ER for evaluation of severe headache that started 2 hours ago associated w/ temporary vision changes. BP stable. Neurologically at her baseline. Need to r/o ICH/SAH given she is on Coumadin and reporting pain was 10/10. It is improved now. Tylenol ordered basic labs showing low mag, given oral repletion CT head without acute abnormality. BP has been stable. INR therapeutic. headache improved after treatment stable for d/c home with outpatient follow up Differential Diagnosis Differential Diagnoses: The differential diagnosis associated with the presentation includes ICH/SAH, tension headache, migraine headache, viral illness, sinus infection, hypertensive encephalopathy Admission/Observation Consideration of admission/observation: Escalation of care including admission/observation considered severe onset of 10/10 headache in anticoagulated patient, considered admission Lab Data MDM Lab Attestation statement: I reviewed the patient's lab results. hyperglycemia, hypomagnesemia 06/17/23 14:34 06/17/23 14:34 Labs: Lab Results 06/17/23 06/17/23 Range/Units 14:09 14:34 WBC 9.9 (4.8-10.8) X10*3/uL RBC 5.00 (4.20-5.50) X10*6/uL Hgb 14.6 (12.0-16.0) g/dl Hct 44.7 (37.0-47.0) % MCV 89.4 (80.0-98.0) fL MCH 29.2 (27.0-33.0) pg MCHC 32.7 (31.0-35.0) g/dl RDW 14.9 (11.0-16.0) % Plt Count 247 (160-400) X10*3/uL MPV 10.3 (9.4-12.3) fL Immature Gran % (Auto) 0.3 (0.0-0.4) % Neut % (Auto) 70.8 (45-73) % Lymph % (Auto) 19.4 L (20-40) % [place] % (Auto) 7.0 (2-11) % Eos % (Auto) 1.8 (0-4) % Baso % (Auto) 0.7 (0-2) % Lymph # (Auto) 1.9 (1.2-4.9) X10*3/uL [place] # (Auto) 0.7 (0.1-1.2) X10*3/uL Eos # (Auto) 0.2 (0.0-0.4) X10*3/uL Baso # (Auto) 0.1 (0.0-0.2) X10*3/uL Abs Immat Gran (auto) 0.03 (0.00-0.03) X10*3/uL Absolute Neuts (auto) 7.0 (2.0-8.3) x10*3/uL Absolute Nucleated RBC 0.000 (0.0-0.012) X10*3/uL Nucleated RBC % (auto) 0.0 (0.0-0.2) /100WBC PT 29.4 H D (11.1-13.3) SEC INR 2.4 H (0.9-1.1) Sodium 140 (135-145) mmol/L Potassium 3.7 (3.3-5.1) mmol/L Chloride 100 (96-108) mmol/L Carbon Dioxide 27 (22-29) mmol/L Anion Gap 17 (12-20) BUN 13 (9-16) mg/dL Creatinine 1.10 (0.5-1.4) mg/dL Estim Creat Clear Calc 100.6 Estimated GFR 53 POC Glucose 249 H (60-115) mg/dL Random Glucose 258 H (60-115) mg/dL Calcium 9.3 (8.4-10.2) mg/dL Magnesium 1.4 L* (1.6-2.6) mg/dL Total Bilirubin 0.4 (0.0-1.0) mg/dL Direct Bilirubin 0.1 (0.0-0.5) mg/dL AST 15 (5-31) U/L ALT 16 (0-31) U/L Alkaline Phosphatase 76 (39-117) U/L Total Protein 7.1 (6.5-8.0) g/dL Albumin 3.8 (3.5-5.0) g/dL Independent Interpretation I performed an independent interpretation of an: CT Scan Interpretation: no visible bleed or edema Radiology Impression Discussion of test interpretation with radiology: I have reviewed the radiologist's reading. Radiologist Impression: CT/CT head/brain wo IV con IMPRESSION: No acute abnormalities. Independent Historian Clinical information obtained from an independent historian. History obtained from or confirmed by: EMS External Record Review External record reviewed: Inpatient record, Outpatient record, Prior outpatient labs and Prior outpatient radiology Prescription Management I considered prescription management with: Pain Medication Chronic Conditions Patient?s care impacted by: Diabetes, Hypertension and Other (anxiety) Social Determinants Patient?s care significantly limited by Social Determinants of Health including: Other Social Determinant of Health Critical Care Time Critical Care Time Critical Care Time: No Discharge Plan Discharge Clinical Impression: Headache Qualifiers: Headache type: unspecified Headache chronicity pattern: unspecified pattern I ntractability: not intractable Qualified Code(s): R51.9 - Headache, unspecified Patient Disposition: Home, Self-Care Instructions: Acute Headache (DC) Additional Instructions: Your CT scan was normal. Your blood pressure today was not elevated Your magnesium level was low so you were given oral magnesium replacement, follow up with your primary care doctor for repeat magnesium Take tylenol for headache as needed If you develop new or worsening symptoms call 911 or come back to the ER for further evaluation. Prescriptions: No Action (DME) FreeStyle [place] 2 [place] Misc See Rx Instructions .ROUTE .MEDSUPPLY Qty: 1 0RF Rx Instructions: As directed (DME) pen needle, diabetic [BD Ultra-Fine Leslie Pen Needle] 32 gauge x 5/32 needle See Rx Instructions .ROUTE .MEDSUPPLY Qty: 100 11RF Rx Instructions: As directed three times a day furosemide 20 mg tablet 1 tab PO DAILY lisinopril 5 mg tablet 1 tab PO DAILY levothyroxine 75 mcg tablet 1 tab PO DAILY loratadine 10 mg tablet 1 tab PO DAILY metoprolol succinate 50 mg tablet extended release 24 hr 1 tab PO DAILY omeprazole 20 mg capsule,delayed release(DR/EC) 1 cap PO DAILY PRN (Reason: gi upset) trazodone 50 mg tablet 1 tab PO BEDTIME sertraline 100 mg tablet 1.5 tab PO QAM medroxyprogesterone 10 mg tablet 1 tab PO DAILY Hold Instructions: Resume on 02/01/23. clonazepam 1 mg tablet 0.5 tab PO BID PRN (Reason: anxiety) warfarin 5 mg tablet 15 mg PO DAILY@1800 ferrous sulfate 325 mg (65 mg iron) tablet,delayed release (DR/EC) 325 mg PO QAM Farxiga 5 mg tablet 5 mg PO DAILY Toujeo Max U-300 SoloStar 300 unit/mL (3 mL) insulin pen 46 unit subcut QPM Trulicity 3 mg/0.5 mL pen injector 3 mg subcut QWEEK fluticasone propionate 110 mcg/actuation HFA aerosol inhaler 2 puff inhalation BID Qty: 12 0RF albuterol sulfate 90 mcg/actuation HFA aerosol inhaler 2 inh inhalation Q4H PRN (Reason: shortness of breath or wheezing) Qty: 8.5 0RF Rx Instructions: use proair prednisone 20 mg tablet 40 mg PO DAILY Qty: 8 0RF insulin lispro [Humalog KwikPen Insulin] 100 unit/mL insulin pen See Rx Instructions subcut TIDWMEAL Qty: 15 6RF Rx Instructions: 8 u shake, 12 u small meal, 16 u lreg/lrg meal subcutaneously 3 times per day with meals; metformin 1,000 mg tablet 1,000 mg PO BID 90 Days Qty: 180 1RF (DME) FreeStyle [place] 2 Sensor Kit See Rx Instructions .ROUTE .MEDSUPPLY Qty: 2 11RF Rx Instructions: As directed every 2 weeks
[2023-06-17 14:39] LABS: MANUAL DIFF FLAG NO
[2023-06-17 14:44] LABS: Basophils Absolute Auto 0.1 X10*3/uL (0.0-0.2); Basophils Percent Auto 0.7 % (0-2); Eosinophils Absolute Auto 0.2 X10*3/uL (0.0-0.4); Eosinophils Percent Auto 1.8 % (0-4); Hematocrit 44.7 % (37.0-47.0); Hemoglobin 14.6 g/dl (12.0-16.0); Imm Gran Abs Auto 0.03 X10*3/uL (0.00-0.03); Imm Gran Pct Auto 0.3 % (0.0-0.4); Lymphocytes Absolute Auto 1.9 X10*3/uL (1.2-4.9); Lymphocytes Percent Auto 19.4 % (20-40); Mean Corpuscular HGB Conc 32.7 g/dl (31.0-35.0); Mean Corpuscular Hemoglobin 29.2 pg (27.0-33.0); Mean Corpuscular Volume 89.4 fL (80.0-98.0); Mean Platelet Volume 10.3 fL (9.4-12.3); Monocytes Absolute Auto 0.7 X10*3/uL (0.1-1.2); Neutrophils Percent Auto 70.8 % (45-73); Platelet Count 247 X10*3/uL (160-400); Red Cell Distribution Width 14.9 % (11.0-16.0); White Blood Count 9.9 X10*3/uL (4.8-10.8)
[2023-06-17 14:45] LABS: INTERNATIONAL NORM RATIO 2.4 (0.9-1.1); Prothrombin Time 29.4 SEC (11.1-13.3)
[2023-06-17 14:59] LABS: Alanine Aminotransferase 16 U/L (0-31); Albumin Level 3.8 g/dL (3.5-5.0); Alkaline Phosphatase 76 U/L (39-117); Anion Gap 17 (12-20); Aspartate Amino Transferase 15 U/L (5-31); Bilirubin Direct 0.1 mg/dL (0.0-0.5); Bilirubin Total 0.4 mg/dL (0.0-1.0); Blood Urea Nitrogen 13 mg/dL (9-16); Calcium 9.3 mg/dL (8.4-10.2); Carbon Dioxide 27 mmol/L (22-29); Chloride 100 mmol/L (96-108); Creatinine Clr Calc Pharmacy 100.6; Estimated Glomerular Filt Rate 53; Glucose Random 258 mg/dL (60-115); Magnesium 1.4 mg/dL (1.6-2.6); Potassium 3.7 mmol/L (3.3-5.1); Sodium 140 mmol/L (135-145); Total Protein 7.1 g/dL (6.5-8.0)
[2023-06-17 15:07] VITALS: BP 132/77; PULSE 98; RESP 18; O2SAT 90
[2023-06-17] MEDS: Acetaminophen 325 MG TABLET 975 MG PO (15:09)
[2023-06-17] MEDS: Magnesium Oxide 400 MG TABLET 800 MG PO (15:13)
[2023-06-17 16:48] VITALS: BP 108/58; PULSE 91; RESP 18; TEMP 36.7; O2SAT 94
--- NOTE | 2023-06-17 17:33 | PC.NURSE ---
AWAITING AMBULANCE TRANSPORT BACK HOME
[2023-06-17 19:41] LABS: Glucose, Whole Blood 228 mg/dL (60-115)
--- NOTE | 2023-06-17 20:24 | PC.NURSE ---
Patient resting quietly on stretcher at this time, requested food and sugar checked. POC WNL, patient continues to wait for transport home.
[2023-06-17 20:45] VITALS: BP 98/60; PULSE 77; O2SAT 95
== END 2023-06-17 21:36 | disposition home or self-care (01) ==
PROVIDERS: Physician Assistant; Emergency Provider Emergency Medicine
DX: R51.9 Headache, unspecified (principal); J45.909 Unspecified asthma, uncomplicated; J96.10 Chronic respiratory failure, unspecified whether with hypoxia or hypercapnia; E11.9 Type 2 diabetes mellitus without complications; I11.0 Hypertensive heart disease with heart failure; I50.9 Heart failure, unspecified; Z86.711 Personal history of pulmonary embolism; Z86.718 Personal history of other venous thrombosis and embolism; Z79.01 Long term (current) use of anticoagulants; Z99.81 Dependence on supplemental oxygen
CPT/HCPCS: 36415; 70450; 80048; 80076; 82947; 83735; 85025; 85610; 99284

== ENCOUNTER 2023-06-26 18:07 | Emergency (ER) | payer OTHER, SELFPAY ==
--- NOTE | ~2023-06-26 | XR_ITS ---
EXAMINATION: XR CHEST CLINICAL INFORMATION: Cough COMPARISON: 02/28/2023 TECHNIQUE: Frontal view of the chest was obtained. FINDINGS: The lungs are hypoinflated. Patient status post median sternotomy. There is mild cardiac enlargement. Compared with the prior study, there's been improvement in appearances with resolution of some basilar atelectasis. No infiltrates, effusions or lung masses are seen. XR/XR chest 1V IMPRESSION: No acute intrathoracic disease.
[2023-06-26 18:21] VITALS: BP 105/62; PULSE 102; RESP 22; TEMP 36.6; O2SAT 96
[2023-06-26 18:23] VITALS: BP 125/73; PULSE 102; O2SAT 94; BMI 57.3
--- NOTE | 2023-06-26 18:40 | ECG_ITS ---
Test Reason : CHEST PAIN Blood Pressure : / mmHG Vent. Rate : 106 BPM Atrial Rate : 106 BPM P-R Int : 162 ms QRS Dur : 076 ms QT Int : 364 ms P-R-T Axes : 052 110 087 degrees QTc Int : 483 ms Sinus tachycardia Left posterior fascicular block Nonspecific ST abnormality Abnormal ECG When compared with ECG of 28-FEB-2023 03:52, No significant change was found Referred By: Generic ED Physician Electronically Signed By:MATTIE FORREST MD
[2023-06-26 18:59] LABS: Appearance Urine Clear; Color Urine Yellow; Glucose Urine UA >=1000 mg/dL (Negative); Leukocyte Esterase Urine Negative (Negative); Nitrite Urine Negative (Negative); PH 6.5 (5.0-9.0); Specific Gravity - Urine 1.025 (1.005-1.025); UMIC TRIGGER UACC YES; Urine Blood Negative (Negative); Urine Ketones Negative (Negative); Urine Protein Negative (Neg-Trace)
[2023-06-26 19:05] LABS: Bacteria Urine None Seen (None Seen); Hyaline Casts Urine 0-2 /LPF (0-2); RBC Urine 0-2 /HPF (0-2); Squamous Epithelial Cell Urine 0-2 /HPF (0-2); WBC Urine 0-5 /HPF (0-5)
[2023-06-26 21:07] LABS: Basophils Absolute Auto 0.1 X10*3/uL (0.0-0.2); Basophils Percent Auto 0.8 % (0-2); Eosinophils Absolute Auto 0.2 X10*3/uL (0.0-0.4); Eosinophils Percent Auto 1.8 % (0-4); Hematocrit 44.1 % (37.0-47.0); Imm Gran Abs Auto 0.03 X10*3/uL (0.00-0.03); Imm Gran Pct Auto 0.3 % (0.0-0.4); Lymphocytes Percent Auto 21.8 % (20-40); MANUAL DIFF FLAG NO; Mean Corpuscular Hemoglobin 30.2 pg (27.0-33.0); Mean Corpuscular Volume 88.7 fL (80.0-98.0); Monocytes Absolute Auto 0.5 X10*3/uL (0.1-1.2); Monocytes Percent Auto 5.6 % (2-11); Neutrophils Absolute Auto 6.5 x10*3/uL (2.0-8.3); Neutrophils Percent Auto 69.7 % (45-73); Platelet Count 284 X10*3/uL (160-400); Red Blood Count 4.97 X10*6/uL (4.20-5.50); Red Cell Distribution Width 15.4 % (11.0-16.0); White Blood Count 9.3 X10*3/uL (4.8-10.8)
[2023-06-26 21:21] LABS: Alanine Aminotransferase 14 U/L (0-31); Alkaline Phosphatase 75 U/L (39-117); Anion Gap 15 (12-20); Aspartate Amino Transferase 13 U/L (5-31); Bilirubin Total 0.4 mg/dL (0.0-1.0); Blood Urea Nitrogen 12 mg/dL (9-16); Calcium 9.2 mg/dL (8.4-10.2); Carbon Dioxide 29 mmol/L (22-29); Chloride 101 mmol/L (96-108); Estimated Glomerular Filt Rate 49; Glucose Random 341 mg/dL (60-115); Potassium 4.6 mmol/L (3.3-5.1); Sodium 140 mmol/L (135-145); Total Protein 7.8 g/dL (6.5-8.0)
[2023-06-26 21:41] LABS: Prothrombin Time 24.1 SEC (11.1-13.3)
[2023-06-26 21:44] LABS: Influenza A PCR NEGATIVE (Negative); Influenza B PCR NEGATIVE (Negative); Resp Syncy Virus RNA Qual PCR NEGATIVE (Negative); SARS COV2 PCR INHOUSE NEGATIVE (Negative)
--- NOTE | 2023-06-26 22:03 | ED.SOB ---
HPI - SOB/Dyspnea General Chief Complaint: Dyspnea Stated Complaint: SOB X1DAY Time Seen by Provider: 06/26/23 21:00 Source: patient, EMS and old records reviewed Mode of arrival: EMS Limitations: no limitations History of Present Illness HPI Narrative: 48 yo female with PMH obesity hypoventilation syndrome and chronic resp failure on 2-3L NC, PTSD, CHF, pneumonia, HLD, DM, HTN, obesity, asthma notes 2 days of increased dyspnea, wheezes and feeling like she has chest congestion she cannot get up. No relief with home INH or nebs. MD elicited complaint: shortness of breath Pertinent past history: asthma, congestive heart failure and pneumonia Onset (ago): day(s) (2) Timing: constant Severity: moderate Exacerbating factors: lying flat, exertion and coughing Relieving factors: oxygen, rest and bronchodilators Known history of: asthma, congestive heart failure and recurrent pneumonia Associated symptoms: cough and wheezing Treatment prior to arrival: oxygen and bronchodilator Related Data Home Medications Medication Instructions Recorded Confirmed furosemide 20 mg tablet 1 tab PO DAILY 05/26/21 01/25/23 levothyroxine 75 mcg tablet 1 tab PO DAILY 05/26/21 01/25/23 lisinopril 5 mg tablet 1 tab PO DAILY 05/26/21 01/25/23 loratadine 10 mg tablet 1 tab PO DAILY 05/26/21 01/25/23 metoprolol succinate 50 mg 1 tab PO DAILY 05/26/21 01/25/23 tablet,extended release 24 hr omeprazole 20 mg capsule,delayed 1 cap PO DAILY PRN gi upset 05/26/21 01/25/23 release trazodone 50 mg tablet 1 tab PO BEDTIME 05/26/21 01/25/23 clonazepam 1 mg tablet 0.5 tab PO BID PRN anxiety 07/14/21 01/25/23 medroxyprogesterone 10 mg tablet 1 tab PO DAILY 07/14/21 01/25/23 warfarin 5 mg tablet 15 mg PO DAILY@1800 07/14/21 01/25/23 sertraline 100 mg tablet 1.5 tab PO QAM 07/22/21 01/25/23 dapagliflozin propanediol 5 mg 5 mg PO DAILY 12/13/22 01/25/23 tablet (Farxiga) ferrous sulfate 325 mg (65 mg 325 mg PO QAM 12/13/22 01/25/23 iron) tablet,delayed release insulin glargine U-300 conc 300 46 unit subcut QPM 12/13/22 01/25/23 unit/mL (3 mL) subcutaneous pen (Toujeo Max U-300 SoloStar) dulaglutide 3 mg/0.5 mL 3 mg subcut QWEEK 01/25/23 01/25/23 subcutaneous pen injector (Trulicity) Previous Rx's Medication Instructions Recorded flash glucose sensor (FreeStyle #2 ea 06/23/21 Shelby 2 Sensor kit) flash glucose scanning reader #1 ea 07/22/21 (FreeStyle [place] 2 [place]) pen needle, diabetic 32 gauge x #100 ea 09/04/21 (BD Ultra-Fine Leslie Pen Needle) insulin lispro 100 unit/mL See Rx Instructions subcut 09/22/21 subcutaneous pen (Humalog KwikPen TIDWMEAL #15 mL (U-100) Insulin) metformin 1,000 mg tablet 1,000 mg PO BID 90 days #180 tabs 09/22/21 albuterol sulfate 90 mcg/actuation 2 inh inhalation Q4H PRN shortness 01/28/23 aerosol inhaler of breath or wheezing #8.5 grams fluticasone propionate 110 2 puff inhalation BID #12 grams 01/28/23 mcg/actuation HFA aerosol inhaler prednisone 20 mg tablet 40 mg (2 x 20 mg) PO DAILY #8 tabs 01/28/23 prednisone 20 mg tablet 20 mg PO DAILY 5 days #5 tabs 06/27/23 Allergies Allergy/AdvReac Type Severity Reaction Status Date / Time Penicillins [PENICILLINS] Allergy Intermediate HIVES Verified 02/28/23 01:23 egg [Egg] Allergy Mild SWELLING Verified 02/28/23 01:23 aspirin Allergy Unknown Unknown Verified 02/28/23 01:23 bee pollen [BEE STINGS] Allergy Unknown UNKNOWN Verified 02/28/23 01:23 lactose [LACTOSE] Allergy Unknown UNKNOWN Verified 02/28/23 01:23 latex [LATEX] Allergy Unknown HIVES Verified 02/28/23 01:23 oxycodone Allergy Unknown Unknown Verified 02/28/23 01:23 peanut [PEANUT] Allergy Unknown UNKNOWN Verified 02/28/23 01:23 penicillin V Allergy Unknown Unknown Verified 02/28/23 01:23 kiwi Allergy Anaphylaxis Verified 02/28/23 01:23 eggs,bees,latex,peanuts Allergy Unknown Unknown Uncoded 02/28/23 01:23 medical tape Allergy Unknown Unknown Uncoded 02/28/23 01:23 TAPE,PLASTIC Allergy Unknown RASH Uncoded 02/28/23 01:23 Review of Systems Review of Systems: Constitutional : No Fever, No Chills ENT/Mouth : No Hoarseness, No sore throat, No Rhinorrhea Eyes: No Redness, No Discharge, No Vision Changes Cardiovascular : No Chest Pain, positive SOB, positive Dyspnea on Exertion, No Edema Respiratory : positive Cough, No Sputum, positive Wheezing, Gastrointestinal : No Nausea, No Vomiting, No Diarrhea, No abdominal Pain Genitourinary : No Dysuria, No Hematuria Musculoskeletal : No joint pain, No Myalgias Skin : No rash Neuro : No Weakness, No Numbness, No Headache Psych : No anxiety, depression Heme/Lymph: No Bruising, No Bleeding Endocrine : No Polyuria, No Polydipsia All other systems reviewed and are negative PMFSH Past Medical History Attestation statement: The following information was validated with the patient. Source: old records reviewed Medical History Recurrent major depression PTSD (post-traumatic stress disorder) Acute hyperglycemia Proteinuria Obesity due to excess calories Hyperlipidemia LDL goal <70 Cardiomyopathy DVT (deep vein thrombosis) in Gallstones ROGERIO (obstructive sleep apnea) Pancreatitis BMI 50.0-59.9, adult Essential hypertension Diabetes type 2, uncontrolled Diabetes mellitus, type 2 CHF (congestive heart failure) Mood disorder Irritable bowel Hypothyroidism Depression Anxiety PTSD (post-traumatic stress disorder) Asthma Hypertension Pulmonary embolism Surgical History History of dental surgery History of open heart surgery Hx of removal of cyst Hx of hernia repair Family History Family History Paternal Grandmother Diabetes Social History Social History Household Members: None Housing: Apartment Housing Other:: Has [employer] twice a day. Do you presently have visiting nurse or other home services: Yes Unable to assess alcohol history related to: Refusing to respond Alcohol intake: current Alcohol intake frequency: holidays/special occasions only Comment: patient sleeping Patient Tobacco Use Status: Former Tobacco user Tobacco use type: Cigarette Smoked in Last 30 Days: No e-Cigarette/Vaping Use: Never Used Second Hand Smoke Exposure: Yes (others at her apartment complex) Use of substances other than those prescribed or required for medical reasons: Yes Substance Use Type: Marijuana Advance Directives: No Advance Directives Information Provided: No Patient : No service: No Current occupational status: disabled Sexual orientation: Lesbian/Good/Homosexual Physical Exam Vital Signs: Vital Signs: Last Vital Signs Temp 97.9 F 06/26/23 18:21 Pulse 99 06/26/23 22:51 Resp 18 06/26/23 22:51 BP 105/62 06/26/23 18:21 Pulse Ox 96 06/26/23 18:21 O2 Del Method Nasal Cannula wit h Capnography 06/26/23 18:21 BMI result Body Mass Index 57.3 Appearance: Alert. Oriented X3. No acute distress. Eyes: Pupils equal, round and reactive to light. ENT: Pharynx normal. Neck: Normal inspection. Neck supple. CVS: tachycardic heart rate and rhythm. Pulses normal. Respiratory: No respiratory distress. Breath sounds diminished throughout no wheezes Abdomen: Soft and nontender. Skin: Skin warm and dry. Normal skin color. Normal skin turgor. Extremities: No lower extremity edema. No calf ttp Neuro: Oriented X 3. No motor deficit. No sensory deficit. Course Course Course Narrative: no hypoxia lungs clear mild cough stable for DC Medications Administered Discontinued Medications Generic Name Dose Route Start Last Admin Trade Name Freq PRN Reason Stop Dose Admin Albuterol Sulfate 5 mg/ 7.5 mg 06/26/23 22:35 06/26/23 22:45 Albuterol Sulfate 2.5 mg INHALE 06/26/23 22:36 7.5 mg ONCE ONE Administration Medical Decision Making Medical Decision Making MDM Narrative: 48 yo female with PMH obesity hypoventilation syndrome and chronic resp failure on 2-3L NC, PTSD, CHF, pneumonia, HLD, DM, HTN, obesity, asthma here with c/o dyspnea and shortness of breath feeling asthma trigger at this time will need basic labs, CXR, bronch dilator protocol, EKG and BNP - viral panel ordered. Has no fevers or chills. No chest pain. INR 2.0 doubt VTE at this time. Differential Diagnosis Differential Diagnoses: The differential diagnosis associated with the presentation includes asthma, bronchitis, CHF, resp failure Admission/Observation Consideration of admission/observation: Escalation of care including admission/observation considered labs reassuring, no hypoxia feels better mild tachycardia post nebs stable for DC Lab Data MDM Lab Attestation statement: I reviewed the patient's lab results. 06/26/23 21:02 06/26/23 21:02 Labs: Lab Results 06/26/23 06/26/23 06/26/23 Range/Units 18:50 21:02 21:31 WBC 9.3 (4.8-10.8) X10*3/uL RBC 4.97 (4.20-5.50) X10*6/uL Hgb 15.0 (12.0-16.0) g/dl Hct 44.1 (37.0-47.0) % MCV 88.7 (80.0-98.0) fL MCH 30.2 (27.0-33.0) pg MCHC 34.0 (31.0-35.0) g/dl RDW 15.4 (11.0-16.0) % Plt Count 284 (160-400) X10*3/uL MPV 10.0 (9.4-12.3) fL Immature Gran % (Auto) 0.3 (0.0-0.4) % Neut % (Auto) 69.7 (45-73) % Lymph % (Auto) 21.8 (20-40) % [place] % (Auto) 5.6 (2-11) % Eos % (Auto) 1.8 (0-4) % Baso % (Auto) 0.8 (0-2) % Lymph # (Auto) 2.0 (1.2-4.9) X10*3/uL [facility] # (Auto) 0.5 (0.1-1.2) X10*3/uL Eos # (Auto) 0.2 (0.0-0.4) X10*3/uL Baso # (Auto) 0.1 (0.0-0.2) X10*3/uL Abs Immat Gran (auto) 0.03 (0.00-0.03) X10*3/uL Absolute Neuts (auto) 6.5 (2.0-8.3) x10*3/uL Absolute Nucleated RBC 0.000 (0.0-0.012) X10*3/uL Nucleated RBC % (auto) 0.0 (0.0-0.2) /100WBC PT 24.1 H (11.1-13.3) SEC INR 2.0 H (0.9-1.1) Sodium 140 (135-145) mmol/L Potassium 4.6 D (3.3-5.1) mmol/L Chloride 101 (96-108) mmol/L Carbon Dioxide 29 (22-29) mmol/L Anion Gap 15 (12-20) BUN 12 (9-16) mg/dL Creatinine 1.18 (0.5-1.4) mg/dL Estim Creat Clear Calc 94.0 Estimated GFR 49 Random Glucose 341 H (60-115) mg/dL Calcium 9.2 (8.4-10.2) mg/dL Total Bilirubin 0.4 (0.0-1.0) mg/dL AST 13 (5-31) U/L ALT 14 (0-31) U/L Alkaline Phosphatase 75 (39-117) U/L Troponin I High Sens < 2.7 (<3.5-17.0) ng/L B-Natriuretic Peptide 46 (<100) pg/mL Total Protein 7.8 (6.5-8.0) g/dL Albumin 4.0 (3.5-5.0) g/dL Urine Color Yellow Urine Appearance Clear Urine pH 6.5 (5.0-9.0) Ur Specific [place] 1.025 (1.005-1.025) Urine Protein Negative (Neg-Trace) mg/dL Urine Glucose (UA) >=1000 H (Negative) mg/dL Urine Ketones Negative (Negative) mg/dL Urine Blood Negative (Negative) Urine Nitrite Negative (Negative) Ur Leukocyte Esterase Negative (Negative) Urine RBC 0-2 (0-2) /HPF Urine WBC 0-5 (0-5) /HPF Ur Squamous Epith Cells 0-2 (0-2) /HPF Urine Bacteria None Seen (None Seen) Hyaline Casts 0-2 (0-2) /LPF Influenza Type A (PCR) NEGATIVE (Negative) Influenza Type B (PCR) NEGATIVE (Negative) RSV RNA Qual (PCR) NEGATIVE (Negative) SARS-CoV-2 RNA (RT-PCR) NEGATIVE (Negative) Independent Interpretation I performed an independent interpretation of an: EKG and Plain X-Ray (no pneumonia) Interpretation: Rate: 106 Rhythm: sinus tachy [place]: right Normal P waves. Normal EDWIN. Normal QRS complex. ST T wave : inverted t waves V1-V2, no ELISHA qTC: normal prior studies: no acute ischemia The study has been interpreted contemporaneously by me. . Radiology Impression Discussion of test interpretation with radiology: I have reviewed the radiologist's reading. Independent Historian Clinical information obtained from an independent historian. History obtained from or confirmed by: EMS External Record Review External record reviewed: Inpatient record Prescription Management I considered prescription management with: Antibiotic and Other Discharge Plan Discharge Clinical Impression: Acute asthma exacerbation Qualifiers: Asthma severity: unspecified severity Asthma persistence: persistent Qualified Code(s): J45.901 - Unspecified asthma with (acute) exacerbation Patient Disposition: Home, Self-Care Instructions: Asthma (ED) Additional Instructions: INR 2.0 chest xray no pneumonia negative for flu covid rsv return for worsening symptoms or concerns monitor your breathing low dose prednisone for 5 days - monitor your blood sugar closely Prescriptions: New prednisone 20 mg tablet 20 mg PO DAILY 5 Days Qty: 5 0RF No Action (DME) FreeStyle [place] 2 [place] Misc See Rx Instructions .ROUTE .MEDSUPPLY Qty: 1 0RF Rx Instructions: As directed (DME) pen needle, diabetic [BD Ultra-Fine Leslie Pen Needle] 32 gauge x 5/32 needle See Rx Instructions .ROUTE .MEDSUPPLY Qty: 100 11RF Rx Instructions: As directed three times a day furosemide 20 mg tablet 1 tab PO DAILY lisinopril 5 mg tablet 1 tab PO DAILY levothyroxine 75 mcg tablet 1 tab PO DAILY loratadine 10 mg tablet 1 tab PO DAILY metoprolol succinate 50 mg tablet extended release 24 hr 1 tab PO DAILY omeprazole 20 mg capsule,delayed release(DR/EC) 1 cap PO DAILY PRN (Reason: gi upset) trazodone 50 mg tablet 1 tab PO BEDTIME sertraline 100 mg tablet 1.5 tab PO QAM medroxyprogesterone 10 mg tablet 1 tab PO DAILY Hold Instructions: Resume on 02/01/23. clonazepam 1 mg tablet 0.5 tab PO BID PRN (Reason: anxiety) warfarin 5 mg tablet 15 mg PO DAILY@1800 ferrous sulfate 325 mg (65 mg iron) tablet,delayed release (DR/EC) 325 mg PO QAM Farxiga 5 mg tablet 5 mg PO DAILY Toujeo Max U-300 SoloStar 300 unit/mL (3 mL) insulin pen 46 unit subcut QPM Trulicity 3 mg/0.5 mL pen injector 3 mg subcut QWEEK fluticasone propionate 110 mcg/actuation HFA aerosol inhaler 2 puff inhalation BID Qty: 12 0RF albuterol sulfate 90 mcg/actuation HFA aerosol inhaler 2 inh inhalation Q4H PRN (Reason: shortness of breath or wheezing) Qty: 8.5 0RF Rx Instructions: use proair prednisone 20 mg tablet 40 mg PO DAILY Qty: 8 0RF insulin lispro [Humalog KwikPen Insulin] 100 unit/mL insulin pen See Rx Instructions subcut TIDWMEAL Qty: 15 6RF Rx Instructions: 8 u shake, 12 u small meal, 16 u lreg/lrg meal subcutaneously 3 times per day with meals; metformin 1,000 mg tablet 1,000 mg PO BID 90 Days Qty: 180 1RF (DME) FreeStyle [place] 2 Sensor Kit See Rx Instructions .ROUTE .MEDSUPPLY Qty: 2 11RF Rx Instructions: As directed every 2 weeks
[2023-06-26 22:06] LABS: Troponin-I High Sensitivity < 2.7 ng/L (<3.5-17.0)
[2023-06-26 22:10] LABS: B Type Natriuretic Peptide 46 pg/mL (<100)
[2023-06-26] MEDS: Albuterol Sulfate 5 MG, Albuterol Sulfate (0.083%) 2.5 MG 7.5 MG INHALE (22:45)
[2023-06-26 22:51] VITALS: PULSE 99; RESP 18; O2SAT 96
[2023-06-27] MEDS: methylPREDNISolone Sod Succ 125 MG/2 ML VIAL 60 MG IVPUSH (00:23)
[2023-06-27 01:56] VITALS: BP 125/68; PULSE 101; RESP 20; TEMP 36.8; O2SAT 98
[2023-06-27 01:57] VITALS: BP 125/68; PULSE 101; RESP 20; TEMP 36.8; O2SAT 98
== END 2023-06-27 01:58 | disposition home or self-care (01) ==
PROVIDERS: Emergency Provider Emergency Medicine
DX: J45.901 Unspecified asthma with (acute) exacerbation (principal); J96.10 Chronic respiratory failure, unspecified whether with hypoxia or hypercapnia; I11.0 Hypertensive heart disease with heart failure; I50.9 Heart failure, unspecified; E11.9 Type 2 diabetes mellitus without complications; Z86.711 Personal history of pulmonary embolism; Z86.718 Personal history of other venous thrombosis and embolism; Z99.81 Dependence on supplemental oxygen
CPT/HCPCS: 0241U; 36415; 71045; 80053; 81001; 83880; 84484; 85025; 85610; 93005; 94640; 96374; 99284; 99285; J2919; J2930

== ENCOUNTER → 2023-06-26 18:40 | Outpatient (BNV) | payer OTHER, SELFPAY | PROVIDERS: Emergency Provider Emergency Medicine; Visit Provider Internal Medicine Cardiovascular Disease | DX: R94.31 Abnormal electrocardiogram [ECG] [EKG] (principal) | CPT/HCPCS: 93010 ==

== ENCOUNTER 2023-06-28 11:17 | Inpatient (IN) | payer OTHER, SELFPAY ==
[2023-06-28] VITALS (10 sets, daily range): BP systolic 116–140; BP diastolic 72–93; PULSE 94–115; RESP 18–20; TEMP 36.6–37.1; O2SAT 86–98; BMI 56.5
--- NOTE | ~2023-06-28 | XR_ITS ---
EXAMINATION: XR CHEST CLINICAL INFORMATION: Hypoxia COMPARISON: Chest x-ray the 3124 TECHNIQUE: Frontal view of the chest was obtained. FINDINGS: The lungs are hypoexpanded but clear. Heart size and pulmonary vascularity is normal. There are median sternotomy sutures from previous intervention. No gross bony abnormality seen. XR/XR chest 1V IMPRESSION: Hypoexpanded lungs without acute process.
--- NOTE | 2023-06-28 11:31 | ED_ITS ---
HPI - General Adult General Chief complaint: Dyspnea Stated complaint: SOB 86% @PCP,COUGH,NO FEVER,95% 3 LPM PER EMS Time Seen by Provider: 06/28/23 11:31 Source: patient and EMS Mode of arrival: EMS Limitations: no limitations History of Present Illness HPI narrative: Patient is a 48 year old assigned female at with a history of asthma, CHF, DM, and COPD on 2 liters of PRN oxygen presenting to the emergency department today with hypoxia at 86% from her PCP office. Patient states that she has been having worsening shortness of breath / wheezing even after being on 2 days of prednisone. Patient states that she was at her PCPs office and de-saturated down to 86% on room air. Patient denies any dizziness, lightheadedness, abdominal pain, nausea, vomiting, fever, chills, blurry vision, double vision, loss of vision, chest pain, back pain, night sweats, pain with urination, increased urinary frequency, increased urinary urgency, blood in her urine or stool, syncope or a near syncopal episode, recent trauma or falls, bowel incontinence, bladder incontinence, bowel retention, bladder retention, or any other complaints at this time. Relieving factors: none Exacerbating factors: none Associated symptoms: shortness of breath Treatments prior to arrival: other (prednisone) Related Data Home Medications Medication Instructions Recorded Confirmed furosemide 20 mg tablet 1 tab PO DAILY 05/26/21 01/25/23 levothyroxine 75 mcg tablet 1 tab PO DAILY 05/26/21 01/25/23 lisinopril 5 mg tablet 1 tab PO DAILY 05/26/21 01/25/23 loratadine 10 mg tablet 1 tab PO DAILY 05/26/21 01/25/23 metoprolol succinate 50 mg 1 tab PO DAILY 05/26/21 01/25/23 tablet,extended release 24 hr omeprazole 20 mg capsule,delayed 1 cap PO DAILY PRN gi upset 05/26/21 01/25/23 release trazodone 50 mg tablet 1 tab PO BEDTIME 05/26/21 01/25/23 clonazepam 1 mg tablet 0.5 tab PO BID PRN anxiety 07/14/21 01/25/23 medroxyprogesterone 10 mg tablet 1 tab PO DAILY 07/14/21 01/25/23 warfarin 5 mg tablet 15 mg PO DAILY@1800 07/14/21 01/25/23 sertraline 100 mg tablet 1.5 tab PO QAM 07/22/21 01/25/23 dapagliflozin propanediol 5 mg 5 mg PO DAILY 12/13/22 01/25/23 tablet (Farxiga) ferrous sulfate 325 mg (65 mg 325 mg PO QAM 12/13/22 01/25/23 iron) tablet,delayed release insulin glargine U-300 conc 300 46 unit subcut QPM 12/13/22 01/25/23 unit/mL (3 mL) subcutaneous pen (Toujeo Max U-300 SoloStar) dulaglutide 3 mg/0.5 mL 3 mg subcut QWEEK 01/25/23 01/25/23 subcutaneous pen injector (Trulicity) Previous Rx's Medication Instructions Recorded flash glucose sensor (FreeStyle #2 ea 06/23/21 [place] 2 Sensor kit) flash glucose scanning reader #1 ea 07/22/21 (FreeStyle [place] 2 [place]) pen needle, diabetic 32 gauge x #100 ea 09/04/21 (BD Ultra-Fine Leslie Pen Needle) insulin lispro 100 unit/mL See Rx Instructions subcut 09/22/21 subcutaneous pen (Humalog KwikPen TIDWMEAL #15 mL (U-100) Insulin) metformin 1,000 mg tablet 1,000 mg PO BID 90 days #180 tabs 09/22/21 albuterol sulfate 90 mcg/actuation 2 inh inhalation Q4H PRN shortness 01/28/23 aerosol inhaler of breath or wheezing #8.5 grams fluticasone propionate 110 2 puff inhalation BID #12 grams 01/28/23 mcg/actuation HFA aerosol inhaler prednisone 20 mg tablet 40 mg (2 x 20 mg) PO DAILY #8 tabs 01/28/23 prednisone 20 mg tablet 20 mg PO DAILY 5 days #5 tabs 06/27/23 Allergies Allergy/AdvReac Type Severity Reaction Status Date / Time Penicillins [PENICILLINS] Allergy Intermediate HIVES Verified 06/28/23 11:34 egg [Egg] Allergy Mild SWELLING Verified 06/28/23 11:34 aspirin Allergy Unknown Unknown Verified 06/28/23 11:34 bee pollen [BEE STINGS] Allergy Unknown UNKNOWN Verified 06/28/23 11:34 lactose [LACTOSE] Allergy Unknown UNKNOWN Verified 06/28/23 11:34 latex [LATEX] Allergy Unknown HIVES Verified 06/28/23 11:34 oxycodone Allergy Unknown Unknown Verified 06/28/23 11:34 peanut [PEANUT] Allergy Unknown UNKNOWN Verified 06/28/23 11:34 penicillin V Allergy Unknown Unknown Verified 06/28/23 11:34 kiwi Allergy Anaphylaxis Verified 06/28/23 11:34 eggs,bees,latex,peanuts Allergy Unknown Unknown Uncoded 02/28/23 01:23 medical tape Allergy Unknown Unknown Uncoded 02/28/23 01:23 TAPE,PLASTIC Allergy Unknown RASH Uncoded 02/28/23 01:23 Review of Systems 2 Constitutional: Constitutional: Reports no additional constitutional complaints, Denies chills, Denies fever(s) and Denies night sweats Eyes: Eyes: Reports no additional eye complaints, Denies blurry vision, Denies change in vision, Denies diplopia, Denies eye discharge, Denies loss of vision and Denies eye pain ENT: Denies dizziness Cardiovascular: Cardiovascular: Reports no additional cardiovascular complaints, Denies chest pain, Denies lightheadedness, Denies Loss of Consciousness and Reports dyspnea Respiratory: Respiratory: Reports chest congestion and Reports dyspnea Gastrointestinal: Gastrointestinal: Reports no additional gastrointestinal complaints, Denies abdominal pain, Denies melena, Denies hematochezia, Denies change in bowel habits and Denies change in stool character Genitourinary: Genitourinary: Denies hematuria, Denies urinary frequency, Denies dysuria, Denies urinary incontinence, Denies urinary hesitancy and Denies urinary urgency Musculoskeletal: Musculoskeletal: Reports no additional musculoskeletal complaints, Denies numbness and Denies tingling Neurologic: Denies dizziness, Denies loss of vision, Denies numbness and Denies tingling Psychiatric: Psychiatric: Reports no additional psychiatric complaints Endocrine: Endocrine: Reports no additional endocrine complaints Hematologic/Lymphatic: Hematologic/Lymphatic: Reports no additional hematologic/lymphatic complaints Allergic/Immunologic: Allergic/Immunologic: Reports no additional allergic/immunologic complaints PMFSH Past Medical History Attestation statement: The following information was validated with the patient. Source: old records reviewed and nursing notes reviewed Medical History Recurrent major depression PTSD (post-traumatic stress disorder) Acute hyperglycemia Proteinuria Obesity due to excess calories Hyperlipidemia LDL goal <70 Cardiomyopathy DVT (deep vein thrombosis) in Gallstones ROGERIO (obstructive sleep apnea) Pancreatitis BMI 50.0-59.9, adult Essential hypertension Diabetes type 2, uncontrolled Diabetes mellitus, type 2 CHF (congestive heart failure) Mood disorder Irritable bowel Hypothyroidism Depression Anxiety PTSD (post-traumatic stress disorder) Asthma Hypertension Pulmonary embolism Surgical History History of dental surgery History of open heart surgery Hx of removal of cyst Hx of hernia repair Family History Family History Paternal Grandmother Diabetes Social History Social History Household Members: None Housing: Apartment Housing Other:: Has [employer] twice a day. Do you presently have visiting nurse or other home services: Yes Unable to assess alcohol history related to: Refusing to respond Alcohol intake: never Comment: patient sleeping Patient Tobacco Use Status: Former Tobacco user Tobacco use type: Cigarette Smoked in Last 30 Days: No e-Cigarette/Vaping Use: Never Used Second Hand Smoke Exposure: Yes (others at her apartment complex) Substance Use Type: Marijuana Advance Directives: No Patient : No service: No Current occupational status: disabled Sexual orientation: Lesbian/Good/Homosexual Physical Exam ED Vital Signs: Vital Signs - 24 hr 06/28/23 11:26 06/28/23 11:53 06/28/23 12:19 Temperature 97.9 F 98.1 F Pulse Rate 115 H 115 H 108 H Respiratory Rate 20 20 18 Blood Pressure 137/93 H 116/84 Pulse Oximetry 88 L 91 L Oxygen Delivery Method Room Air Room Air Oxygen Flow Rate 06/28/23 13:02 06/28/23 13:14 Temperature Pulse Rate 98 Respiratory Rate 18 Blood Pressure Pulse Oximetry 91 L Oxygen Delivery Method Nasal Cannula Oxygen Flow Rate 2 BMI result Body Mass Index 56.5 Const General: cooperative, no acute distress, alert and awake Nutritional Appearance: well nourished Orientation/consciousness: patient oriented x3 Limitations: no limitations HENMT Head: Yes normal to inspection and Yes atraumatic Ears: hearing grossly normal bilaterally and external ears normal General nose exam: Normal external nose present, no nasal discharge noted and no epistaxis Face and sinus: Yes normal facial exam, No abrasion and No laceration Mouth: Normal oral and palatal mucosa present, no drooling and no muffled voice Eyes General: appearance normal, both eyes and all related structures Periorbital: periorbital findings normal Eyelids: Yes eyelids normal Conjunctivae: conjunctivae normal Pupils: Equal, round and reactive pupils present EOM: EOMs intact bilaterally Neck Neck: Yes normal visual inspection, Yes full ROM and Yes no lymphadenopathy Chest Chest palpation & inspection: normal inspection of the chest Resp Effort & Inspection: able to speak in complete sentences, labored and tachypneic Auscultation: diminished lung sounds diffuse GI Inspection: Yes normal to inspection Neuro General: patient oriented x3 and moves all extremities Cranial nerves: Yes Equal, round and reactive pupils present Cognition (Neuro): normal cognition Motor exam (neuro): 5/5 motor strength present throughout Sensory Exam: Normal double simultaneous stimulation for sensation Coordination: [id number] test normal Extrem General: Yes normal to inspection, Yes full ROM and Yes capillary refill normal Psych Appearance: grossly normal Mental Status: mental status grossly normal Affect: normal affect Attitude: cooperative Thought process: Normal thought process present Thought content: Normal thought content present Insight: Good insight present (Psych) Medications Administered Discontinued Medications Generic Name Dose Route Start Last Admin Trade Name Freq PRN Reason Stop Dose Admin Albuterol/Ipratropium 3 ml 06/28/23 11:46 06/28/23 11:53 Albuterol/Iprat 2.5/0.5mg 3 Ml Ampul.Neb INHALE 06/28/23 11:47 3 ml ONCE ONE Administration Albuterol/Ipratropium 3 ml 06/28/23 13:05 06/28/23 13:14 Albuterol/Iprat 2.5/0.5mg 3 Ml Ampul.Neb INHALE 06/28/23 13:06 3 ml ONCE ONE Administration Magnesium Sulfate/Dextrose 1 gm in 100 mls @ 100 mls/hr 06/28/23 11:32 06/28/23 13:06 Magnesium Sulfate/D5w IV 06/28/23 12:31 Infused ONCE ONE Infusion Methylprednisolone Sodium Succinate 60 mg 06/28/23 11:32 06/28/23 11:46 Methylprednisolone Sod Succ 125 Mg/2 Ml Vial IVPUSH 06/28/23 11:33 60 mg ONCE ONE Administration Medical Decision Making Medical Decision Making MDM Narrative: Patient is a 48 year old assigned female at with a history of asthma, CHF, DM, and COPD on 2 liters of PRN oxygen presenting to the emergency department today with increased SOB and hypoxia. Patient's physical exam was as noted in the physical exam portion of this note. Patient's blood work showed a slightly elevated WBC count of 11.4 which is consistent with prednisone use. Patient's glucose showed 410 which is also consistent with recent prednisone use and hx of DM. The rest of the patient's labs were unremarkable. Patient's EKG was unremarkable. Patient's chest x-ray showed no acute process. Patient was as low as 86% on room air. Patient was given a duoneb, magnesium, and IV solu-medrol which she stated helped her breathing some. Given patient was already on prednisone for 2 days and continues to have difficulty breathing, will admit. I spoke to the hospitalist team who agreed to admission. I explained my physical exam findings as well as all test results to the patient. I answered all questions asked by the patient. Patient verbalized agreement and understanding with this treatment plan and admission. Differential Diagnosis Differential Diagnoses: The differential diagnosis associated with the presentation includes COPD Asthma exacerbation SOB Hypoxia Need for oxygenation Admission/Observation Consideration of admission/observation: Escalation of care including admission/observation considered Admitted Consult Healthcare Provider Management of the patient was discussed with: Hospitalist (agreed to admission as noted in the MDM Rationale portion of this note.) Lab Data [facility] Lab Attestation statement: I reviewed the patient's lab results. My interpretation of these results are in the MDM Rationale portion of this note. 06/28/23 12:10 06/28/23 12:10 Labs: Lab Results 06/28/23 06/28/23 Range/Units 11:35 12:10 WBC 11.4 H (4.8-10.8) X10*3/uL RBC 5.07 (4.20-5.50) X10*6/uL Hgb 15.0 (12.0-16.0) g/dl Hct 45.3 (37.0-47.0) % MCV 89.3 (80.0-98.0) fL MCH 29.6 (27.0-33.0) pg MCHC 33.1 (31.0-35.0) g/dl RDW 15.5 (11.0-16.0) % Plt Count 293 (160-400) X10*3/uL MPV 10.3 (9.4-12.3) fL Immature Gran % (Auto) 0.4 (0.0-0.4) % Neut % (Auto) 73.4 H (45-73) % Lymph % (Auto) 19.6 L (20-40) % Tama % (Auto) 5.1 (2-11) % Eos % (Auto) 1.0 (0-4) % Baso % (Auto) 0.5 (0-2) % Lymph # (Auto) 2.2 (1.2-4.9) X10*3/uL Tama # (Auto) 0.6 (0.1-1.2) X10*3/uL Eos # (Auto) 0.1 (0.0-0.4) X10*3/uL Baso # (Auto) 0.1 (0.0-0.2) X10*3/uL Abs Immat Gran (auto) 0.05 H (0.00-0.03) X10*3/uL Absolute Neuts (auto) 8.4 H (2.0-8.3) x10*3/uL Absolute Nucleated RBC 0.000 (0.0-0.012) X10*3/uL Nucleated RBC % (auto) 0.0 (0.0-0.2) /100WBC Sodium 138 (135-145) mmol/L Potassium 4.5 (3.3-5.1) mmol/L Chloride 99 (96-108) mmol/L Carbon Dioxide 30 H (22-29) mmol/L Anion Gap 14 (12-20) BUN 22 H (9-16) mg/dL Creatinine 1.24 (0.5-1.4) mg/dL Estim Creat Clear Calc 88.7 Estimated GFR 47 POC Glucose 324 H (60-115) mg/dL Random Glucose 410 H* (60-115) mg/dL Calcium 10.1 D (8.4-10.2) mg/dL Magnesium 2.2 (1.6-2.6) mg/dL Total Bilirubin 0.5 (0.0-1.0) mg/dL AST 9 (5-31) U/L ALT 14 (0-31) U/L Alkaline Phosphatase 76 (39-117) U/L Troponin I High Sens < 2.7 (<3.5-17.0) ng/L B-Natriuretic Peptide 95 (<100) pg/mL Total Protein 7.6 (6.5-8.0) g/dL Albumin 4.0 (3.5-5.0) g/dL Influenza Type A (PCR) NEGATIVE (Negative) Influenza Type B (PCR) NEGATIVE (Negative) RSV RNA Qual (PCR) NEGATIVE (Negative) SARS-CoV-2 RNA (RT-PCR) NEGATIVE (Negative) Independent Interpretation I performed an independent interpretation of an: Plain X-Ray Interpretation: My interpretation is in agreement with the radiologist's impression of this imaging study. - EXAMINATION: XR CHEST CLINICAL INFORMATION: Hypoxia COMPARISON: Chest x-ray the 3124 TECHNIQUE: Frontal view of the chest was obtained. FINDINGS: The lungs are hypoexpanded but clear. Heart size and pulmonary vascularity is normal. There are median sternotomy sutures from previous intervention. No gross bony abnormality seen. XR/XR chest 1V IMPRESSION: Hypoexpanded lungs without acute process. Dictated By: Ramsey Hayes MD Signed By: Electronically signed by Ramsey Hayes MD 06/28/23 3287 - Vent. Rate: 107 BPM Atrial Rate: 107 BPM P-R Int: 148 ms QRS Dur: 078 ms QT Int: 352 ms P-R-T Axes: 074 112 093 degrees QTc Int: 469 ms Sinus tachycardia Left posterior fascicular block Abnormal ECG When compared with ECG of 26-JUN-2023 18:44, No significant change was found DD/ 1141 Radiology Impression Discussion of test interpretation with radiology: I have reviewed the radiologist's reading. Independent Historian Clinical information obtained from an independent historian. History obtained from or confirmed by: EMS (EMS provided additional history and confirmed the history provided by the patient.) External Record Review External record reviewed: Inpatient record, Office record and Outpatient record Chronic Conditions Patient?s care impacted by: Diabetes and Other (COPD, asthma) Critical Care Time Critical Care Time Critical Care Time: Yes Total Critical Care Time: 128 Attestation: I spent 128 minutes of Critical Care Time with this patient. This does not include time spent on separately reported billable procedures. Discharge Plan Discharge Clinical Impression: Asthma exacerbation, Hypoxia Patient Disposition: Admitted As Inpatient
--- NOTE | 2023-06-28 11:32 | ECG_ITS ---
Test Reason : SOB Blood Pressure : / mmHG Vent. Rate : 107 BPM Atrial Rate : 107 BPM P-R Int : 148 ms QRS Dur : 078 ms QT Int : 352 ms P-R-T Axes : 074 112 093 degrees QTc Int : 469 ms Sinus tachycardia Left posterior fascicular block Abnormal ECG When compared with ECG of 26-JUN-2023 18:44, No significant change was found Referred By: Ariadne Jenkins Electronically Signed By:MATTIE FORREST MD
[2023-06-28 11:39] LABS: Glucose, Whole Blood 324 mg/dL (60-115)
[2023-06-28] MEDS: methylPREDNISolone Sod Succ 125 MG/2 ML VIAL 60 MG IVPUSH (11:46)
[2023-06-28] MEDS: Magnesium Sulfate/D5W 1 GM/100 ML PIGGYBACK IV (11:47)
[2023-06-28] MEDS: Albuterol/Iprat 2.5/0.5MG 3 ML AMPUL.NEB INHALE ×4 (11:53→19:27)
[2023-06-28 12:24] LABS: MANUAL DIFF FLAG NO
[2023-06-28 12:26] LABS: Basophils Absolute Auto 0.1 X10*3/uL (0.0-0.2); Basophils Percent Auto 0.5 % (0-2); Eosinophils Absolute Auto 0.1 X10*3/uL (0.0-0.4); Hematocrit 45.3 % (37.0-47.0); Imm Gran Abs Auto 0.05 X10*3/uL (0.00-0.03); Imm Gran Pct Auto 0.4 % (0.0-0.4); Lymphocytes Absolute Auto 2.2 X10*3/uL (1.2-4.9); Lymphocytes Percent Auto 19.6 % (20-40); Mean Corpuscular HGB Conc 33.1 g/dl (31.0-35.0); Mean Corpuscular Hemoglobin 29.6 pg (27.0-33.0); Mean Corpuscular Volume 89.3 fL (80.0-98.0); Mean Platelet Volume 10.3 fL (9.4-12.3); Monocytes Absolute Auto 0.6 X10*3/uL (0.1-1.2); Monocytes Percent Auto 5.1 % (2-11); Neutrophils Absolute Auto 8.4 x10*3/uL (2.0-8.3); Neutrophils Percent Auto 73.4 % (45-73); Platelet Count 293 X10*3/uL (160-400); Red Blood Count 5.07 X10*6/uL (4.20-5.50); Red Cell Distribution Width 15.5 % (11.0-16.0); White Blood Count 11.4 X10*3/uL (4.8-10.8)
[2023-06-28 12:44] LABS: Alanine Aminotransferase 14 U/L (0-31); Alkaline Phosphatase 76 U/L (39-117); Anion Gap 14 (12-20); Aspartate Amino Transferase 9 U/L (5-31); B Type Natriuretic Peptide 95 pg/mL (<100); Bilirubin Total 0.5 mg/dL (0.0-1.0); Blood Urea Nitrogen 22 mg/dL (9-16); Calcium 10.1 mg/dL (8.4-10.2); Carbon Dioxide 30 mmol/L (22-29); Chloride 99 mmol/L (96-108); Creatinine Clr Calc Pharmacy 88.7; Estimated Glomerular Filt Rate 47; Glucose Random 410 mg/dL (60-115); Magnesium 2.2 mg/dL (1.6-2.6); Potassium 4.5 mmol/L (3.3-5.1); Sodium 138 mmol/L (135-145); Total Protein 7.6 g/dL (6.5-8.0)
[2023-06-28 12:46] LABS: Troponin-I High Sensitivity < 2.7 ng/L (<3.5-17.0)
[2023-06-28 13:07] LABS: Influenza A PCR NEGATIVE (Negative); Influenza B PCR NEGATIVE (Negative); Resp Syncy Virus RNA Qual PCR NEGATIVE (Negative); SARS COV2 PCR INHOUSE NEGATIVE (Negative)
--- NOTE | 2023-06-28 13:13 | PC.NURSE ---
this nurse assisted pt to bedside commode, pt began SOB on exertion, SpO2 84% on 2L via NC, respiratory at bedside, pt to have updraft.
--- NOTE | 2023-06-28 14:25 | P.HPHOSP_ITS ---
History of Present Illness Date of Service: 06/28/23 Attending physician on admission: Rubio Jimenez Chief Complaint: sob, cough 48 year old female with history of insulin dependent type 2 diabetes, unspecified persistent asthma (no longer on maintenance inhalers but daily rescue inhaler use) with chronic hypoxemic respiratory failure, htn, history of PE with clot removal 2014 on fpc coumadin, hypothyroidism, mood disorder, borderline personality disorder, PTSD, ROGERIO, ckd stage 3, unspecified CHF who is mordidly obese with BMI >56 and who is a former smoker (quit 10+ years ago) who presented to the ED from PCP office due after being found hypoxic to 86% on RA. She reports has been experiencing sob, wheezing, productive cough with yellow sputum production, pleuritic cp, and headache ongoing x 2-3 days. No fevers, shaking chills, ST, congestion, abd pain, n/v/d, lighteheadedness, palpitations, chest pressure. No known sick contacts. Was seen in the ED 2 days ago and started on prednisone. Was feeling slightly better today but presented to pcp this morning for evaluation of ongoing sob and headache and found to be hypoxic to 86%. She has 2L supplemental O2 at home for prn use but states she never uses it and monitors her O2. Has been hospitalized for asthma exacerbation years ago, no history of intubation for asthma. Since arrival, was noted to be hypoxic to 87-88% on RA now maintaining 91-93% on 3L supplemental O2. Mild tachycardia to 115, vitals otherwise stable, afebrile. Mild leukocytosis of 11.4. Renal function baseline, lytes normal except for co2 30. Initial glucose 410, now 324. Trop undetectable. BNP 95. Negative for flu, covid19, rsv. CXR shows hypoexpended lungs with out acute process. In the ed given duoneb x2, 60mg iv methylprednisolone, and 2g iv mag. She will be admitted for further management of acute asthma exacerbation with acute hypoxemic respiratory failure. Review of Systems 2 Review of Systems: General: No fevers, malaise, unintentional weight loss HEENT: No blurred vision, diplopia. No sore throat, nasal congestion, rhinorrhea, sinus pain, ear pain Cardiovascular: +chest pain. No palpitations, or leg edema Respiratory: +shortness of breath, +wheezing, +cough GI: No abdominal pain, nausea, vomiting, diarrhea, constipation, melena, hematochezia : No dysuria, hematuria, increased urinary frequency, decreased urinary output MSK: No myalgia, back pain Neuro: No headaches, weakness, paresthesias Skin: No rashes or lesions [facility] Medical History Recurrent major depression PTSD (post-traumatic stress disorder) Acute hyperglycemia Proteinuria Obesity due to excess calories Hyperlipidemia LDL goal <70 Cardiomyopathy DVT (deep vein thrombosis) in Gallstones ROGERIO (obstructive sleep apnea) Pancreatitis BMI 50.0-59.9, adult Essential hypertension Diabetes type 2, uncontrolled Diabetes mellitus, type 2 CHF (congestive heart failure) Mood disorder Irritable bowel Hypothyroidism Depression Anxiety PTSD (post-traumatic stress disorder) Asthma Hypertension Pulmonary embolism Family History Paternal Grandmother Diabetes Surgical History History of dental surgery History of open heart surgery Hx of removal of cyst Hx of hernia repair Social History Household Members: None Housing: Apartment Housing Other:: Has [employer] twice a day. Do you presently have visiting nurse or other home services: Yes Unable to assess alcohol history related to: Refusing to respond Alcohol intake: never Comment: patient sleeping Patient Tobacco Use Status: Former Tobacco user Tobacco use type: Cigarette Smoked in Last 30 Days: No e-Cigarette/Vaping Use: Never Used Second Hand Smoke Exposure: Yes (others at her apartment complex) Substance Use Type: Marijuana Advance Directives: No Patient : No service: No Current occupational status: disabled Sexual orientation: Lesbian/Good/Homosexual Meds Allergies Allergy/AdvReac Type Severity Reaction Status Date / Time Penicillins [PENICILLINS] Allergy Intermediate HIVES Verified 06/28/23 11:34 egg [Egg] Allergy Mild SWELLING Verified 06/28/23 11:34 aspirin Allergy Unknown Unknown Verified 06/28/23 11:34 bee pollen [BEE STINGS] Allergy Unknown UNKNOWN Verified 06/28/23 11:34 lactose [LACTOSE] Allergy Unknown UNKNOWN Verified 06/28/23 11:34 latex [LATEX] Allergy Unknown HIVES Verified 06/28/23 11:34 oxycodone Allergy Unknown Unknown Verified 06/28/23 11:34 peanut [PEANUT] Allergy Unknown UNKNOWN Verified 06/28/23 11:34 penicillin V Allergy Unknown Unknown Verified 06/28/23 11:34 kiwi Allergy Anaphylaxis Verified 06/28/23 11:34 eggs,bees,latex,peanuts Allergy Unknown Unknown Uncoded 02/28/23 01:23 medical tape Allergy Unknown Unknown Uncoded 02/28/23 01:23 TAPE,PLASTIC Allergy Unknown RASH Uncoded 02/28/23 01:23 Home Medications Medication Instructions Recorded Confirmed Last Taken Type furosemide 20 mg tablet 1 tab PO DAILY 05/26/21 01/25/23 06/28/23 History levothyroxine 75 mcg tablet 1 tab PO DAILY 05/26/21 01/25/23 06/28/23 History lisinopril 5 mg tablet 1 tab PO DAILY 05/26/21 01/25/23 06/28/23 History loratadine 10 mg tablet 1 tab PO DAILY 05/26/21 01/25/23 06/28/23 History metoprolol succinate 50 mg 1 tab PO DAILY 05/26/21 01/25/23 06/28/23 History tablet,extended release 24 hr omeprazole 20 mg capsule,delayed 1 cap PO DAILY gi upset 05/26/21 01/25/23 06/28/23 History release trazodone 50 mg tablet 1 tab PO BEDTIME 05/26/21 01/25/23 06/28/23 History clonazepam 1 mg tablet 0.5 tab PO BID PRN anxiety 07/14/21 01/25/23 06/28/23 History medroxyprogesterone 10 mg tablet 1 tab PO DAILY 07/14/21 01/25/23 06/28/23 History warfarin 5 mg tablet 15 mg PO SUMOTUWETHSA 07/14/21 01/25/23 06/28/23 History sertraline 100 mg tablet 1.5 tab PO QAM 07/22/21 01/25/23 06/28/23 History dapagliflozin propanediol 5 mg 5 mg PO DAILY 12/13/22 01/25/23 06/28/23 History tablet (Farxiga) ferrous sulfate 325 mg (65 mg 325 mg PO QAM 12/13/22 01/25/23 06/28/23 History iron) tablet,delayed release insulin glargine U-300 conc 300 50 unit subcut QPM 12/13/22 01/25/23 06/27/23 History unit/mL (3 mL) subcutaneous pen (Toujeo Max U-300 SoloStar) dulaglutide 3 mg/0.5 mL 3 mg subcut FR 01/25/23 01/25/23 06/28/23 History subcutaneous pen injector (Trulicity) albuterol sulfate 2.5 mg/3 mL 2.5 mg inhalation Q4-6H PRN 06/28/23 06/27/23 History (0.083 %) solution for nebulization Shortness Of Breath Or Wheezing guaifenesin 100 mg/5 mL oral liquid 200 mg PO Q4H PRN Cough 06/28/23 06/27/23 History insulin lispro 100 unit/mL See Protocol subcut TIDWMEAL 06/28/23 06/28/23 History subcutaneous pen (Humalog KwikPen (U-100) Insulin) warfarin 5 mg tablet 17.5 mg PO FR 06/28/23 06/28/23 History Physical Exam 2 Vital Signs and Narrative: Vital Signs: Last Vital Signs Temp 98.1 F 06/28/23 12:19 Pulse 98 06/28/23 13:14 Resp 18 06/28/23 13:14 BP 116/84 06/28/23 12:19 Pulse Ox 91 L 06/28/23 13:02 O2 Del Method Nasal Cannula 06/28/23 13:02 O2 Flow Rate 2 06/28/23 13:02 BMI result Body Mass Index 56.5 Constitutional - Awake and Alert, No apparent distress Eyes - PERRLA, EOMI Cardiovascular - S1S2, RRR, No edema Respiratory - Normal lung expansion, Normal respiratory effort, No respiratory distress on 4L supplemental O2, diminished lung sounds bilaterally without any notable wheezing/rhonchi/rales Gastrointestinal - morbidly obese abdomen. NT / ND; +BS; No rebound or guarding Extremities - no calf tenderness bilaterally, no swelling Skin - Warm/Dry Neurological - Alert & oriented x3, CN II-XII in tact, 5/5 strength BUE and BLE Psychological - Appropriate affect Results Labs 06/28/23 12:10 06/28/23 12:10 Labs: Laboratory Results - last 24 hr 06/28/23 06/28/23 11:35 12:10 MCV 89.3 MCH 29.6 MCHC 33.1 RDW 15.5 Plt Count 293 MPV 10.3 Immature Gran % (Auto) 0.4 Neut % (Auto) 73.4 H Lymph % (Auto) 19.6 L [place] % (Auto) 5.1 Eos % (Auto) 1.0 Baso % (Auto) 0.5 Lymph # (Auto) 2.2 [place] # (Auto) 0.6 Eos # (Auto) 0.1 Baso # (Auto) 0.1 Abs Immat Gran (auto) 0.05 H Absolute Neuts (auto) 8.4 H Absolute Nucleated RBC 0.000 Nucleated RBC % (auto) 0.0 Anion Gap 14 Estim Creat Clear Calc 88.7 Estimated GFR 47 POC Glucose 324 H Random Glucose 410 H* Calcium 10.1 D Magnesium 2.2 Total Bilirubin 0.5 AST 9 ALT 14 Alkaline Phosphatase 76 Troponin I High Sens < 2.7 B-Natriuretic Peptide 95 Total Protein 7.6 Albumin 4.0 Influenza Type A (PCR) NEGATIVE Influenza Type B (PCR) NEGATIVE RSV RNA Qual (PCR) NEGATIVE SARS-CoV-2 RNA (RT-PCR) NEGATIVE Imaging Radiologist's Impressions: Impressions Chest X-Ray 06/28/23 12:30 IMPRESSION: Hypoexpanded lungs without acute process. 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 #Acute asthma exacerbation with acute on chronic hypoxemic respiratory failure -has prn home O2 but has not worn in many months -cxr shows hypoexpanded lungs, negative for pneumonia -negative for covid19, flu, rsv. Check full viral respiratory panel -methylprednisolone 40mg bid -dunebs q4h while awake -albuterol nebs prn -guaifenesin prn -continue supplemental O2 to maintain oximetry 90-92%, wean as tolerated #Obesity hypoventilation syndrome -encourage IS #Insulin dependent type 2 diabetes with steroid induced hyperglycemia -hgb a1c pending -dose adjusted basal insulin -standing 5 units lispro qidachs, and ssi -poc glucose, diabetic diet -continue farxiga #HTN -bp reasonably controlled -continue lisinopril,lasix #Chronic HF, unspecified ef -clinically euvolemic -continue lasix, farxiga #History of PE -INR pending, continue coumadin -Follow INR #Hypothyroidism -continue levothyroxine #Mood disorder/BPD/PTSD -continue home meds #Morbid obesity with bmi >56 -encouraged continued efforts towards weight loss dvt prophylaxis- coumadin full code Due to acute on chronic hypoxemic respiratory failure secondary to asthma exacerbation still hypoxic to 87% on RA on admission depsite multiple treatments in ED and po prednisone, pt will require hospitalization for at least 2 midnights for iv steroids, scheduled nebs, and supplemental O2 Quality Stroke Does the patient have a stroke diagnosis?: No VTE Prior VTE?: Yes VTE Risk Level:: Medical - moderate - high VTE Device Contraindication: Treatment Not Indicated VTE Drug Contraindication: N/A - Med Ordered
--- NOTE | 2023-06-28 14:36 | PHA.MEDREC ---
Pharmacy Consult ? Medication Reconciliation Pharmacy has completed the medication reconciliation. Confirmed medication with patient and claim history. Patient was unsure about a few doses. I was able to contact [facility] (Diane [phone]) and she confirmed Sertraline and Omeprazole dose. Unable to confirm strength of albuterol for nebulizer.
[2023-06-28] MEDS: guaiFENesin 200 MG/10 ML 10 ML LIQUID PO ×3 (14:49→21:27)
[2023-06-28 15:01] LABS: INTERNATIONAL NORM RATIO 2.3 (0.9-1.1); Prothrombin Time 27.6 SEC (11.1-13.3)
[2023-06-28 15:01] LABS: Glucose, Whole Blood 417 mg/dL (60-115)
[2023-06-28 15:03] LABS: Estimated Average Glucose 197 mg/dL; Hemoglobin A1c % 8.5 % (<6.0)
--- NOTE | 2023-06-28 15:38 | PC.NURSE ---
pt FSBS [phone] CARL Calvert notified via [employer] connect
[2023-06-28] MEDS: Insulin Lispro 100 UNIT/ML 3 ML VIAL SUBCUT ×2 (15:56→18:15)
--- NOTE | 2023-06-28 16:21 | PC.NURSE ---
report called over to ED Vijaya amos
[2023-06-28] MEDS: 0.9 % Sodium Chloride Flush 3 ML SYRINGE IVFLUSH (16:26)
[2023-06-28 17:06] LABS: Glucose, Whole Blood 400 mg/dL (60-115)
--- NOTE | 2023-06-28 17:06 | PC.NURSE ---
assumed care of patient at this time, POC 400, notified CARL Powell. new insulin order put in.
[2023-06-28] MEDS: Insulin Lispro 100 UNIT/ML 3 ML VIAL 10 UNIT SUBCUT ×2 (18:14→21:31)
[2023-06-28] MEDS: Warfarin Sodium 7.5 MG TABLET 15 MG PO (18:26)
--- NOTE | 2023-06-28 20:15 | MHC.CM.ED ---
Addendum entered by Alisa Murray 06/28/23 20:27: ? [employer] for Agency. Placed in [facility]. Original Note: CM met with admitted patient with bed assignment pending. Pt is in the overflow unit. A&Ox4. Lives alone. Uses a walker. Has DELIVERY REP services 41 h/wk through [employer]. Has support services in community from [facility]. Eli Dwyer is her [facility] operations executive. Pt has home oxygen from [facility] [place]. She uses 2L via [place]. She has a visiting nurse daily for medication management, however she does not remember the agency. THRIVE assessment negative. D/C plan: home with existing services. Will need to call [facility] regarding services. Pt states [facility] should be able to provide transport home at discharge. CM will follow for discharge planning.
--- NOTE | 2023-06-28 20:20 | PC.NURSE ---
Assumed care of pt at 19:15. PT laying in bed, offers no complaints @ this time. O2 currently at 4 LPM per order. Plan of care ongoing.
[2023-06-28 21:07] LABS: Glucose, Whole Blood 314 mg/dL (60-115)
[2023-06-28] MEDS: methylPREDNISolone Sod Succ 40 MG/ML VIAL IVPUSH (21:27)
[2023-06-28] MEDS: traZODone HCL 50 MG TABLET PO (21:27)
[2023-06-28] MEDS: Insulin Glargine,Hum.rec.anlog 100 UNIT/ML 10 ML VIAL 40 UNIT SUBCUT (21:28)
[2023-06-28] MEDS: clonazePAM 0.5 MG TABLET PO (21:30)
--- NOTE | 2023-06-28 21:58 | PC.NURSE ---
Dr. Hernandez contracted re:order for Lispro. 10U scheduled as well as sliding scale. Per Dr. Hernandez, give 10u now and recheck POC in two hours and follow sliding scale guidelines.
[2023-06-28 23:40] LABS: Glucose, Whole Blood 241 mg/dL (60-115)
[2023-06-29] VITALS (7 sets, daily range): BP systolic 132–137; BP diastolic 90–95; PULSE 82–95; RESP 16–20; TEMP 36.2–36.4; O2SAT 92–96; BMI 56.3
[2023-06-29] MEDS: Insulin Lispro 100 UNIT/ML 3 ML VIAL SUBCUT ×5 (00:23→20:27)
[2023-06-29] MEDS: 0.9 % Sodium Chloride Flush 3 ML SYRINGE IVFLUSH ×4 (00:24→19:24)
--- NOTE | 2023-06-29 03:05 | PC.NURSE ---
PT request PRN edgardo tolentino, resp made aware.
[2023-06-29] MEDS: Albuterol Sulfate (0.083%) 2.5 MG/3 ML VIAL.NEB INHALE (03:08)
[2023-06-29] MEDS: guaiFENesin 200 MG/10 ML 10 ML LIQUID PO ×6 (03:26→22:59)
[2023-06-29] MEDS: Omeprazole 20 MG CAPSULE.DR PO (05:53)
[2023-06-29] MEDS: Levothyroxine Sodium 75 MCG TABLET PO (05:53)
[2023-06-29 06:13] LABS: MANUAL DIFF FLAG NO
[2023-06-29 06:29] LABS: Anion Gap 16 (12-20); Blood Urea Nitrogen 25 mg/dL (9-16); Calcium 10.2 mg/dL (8.4-10.2); Carbon Dioxide 27 mmol/L (22-29); Chloride 100 mmol/L (96-108); Creatinine Clr Calc Pharmacy 104.6; Estimated Glomerular Filt Rate 56; Glucose Random 247 mg/dL (60-115); INTERNATIONAL NORM RATIO 2.5 (0.9-1.1); Potassium 4.5 mmol/L (3.3-5.1); Prothrombin Time 30.8 SEC (11.1-13.3); Sodium 138 mmol/L (135-145)
[2023-06-29 06:37] LABS: Basophils Percent Auto 0.2 % (0-2); Eosinophils Percent Auto 0.2 % (0-4); Hematocrit 45.6 % (37.0-47.0); Hemoglobin 15.1 g/dl (12.0-16.0); Imm Gran Abs Auto 0.05 X10*3/uL (0.00-0.03); Imm Gran Pct Auto 0.4 % (0.0-0.4); Lymphocytes Absolute Auto 1.4 X10*3/uL (1.2-4.9); Lymphocytes Percent Auto 10.8 % (20-40); Mean Corpuscular HGB Conc 33.1 g/dl (31.0-35.0); Mean Corpuscular Hemoglobin 29.3 pg (27.0-33.0); Mean Corpuscular Volume 88.4 fL (80.0-98.0); Mean Platelet Volume 10.6 fL (9.4-12.3); Monocytes Absolute Auto 0.4 X10*3/uL (0.1-1.2); Monocytes Percent Auto 3.1 % (2-11); Neutrophils Absolute Auto 10.9 x10*3/uL (2.0-8.3); Neutrophils Percent Auto 85.3 % (45-73); Platelet Count 308 X10*3/uL (160-400); Red Blood Count 5.16 X10*6/uL (4.20-5.50); Red Cell Distribution Width 15.1 % (11.0-16.0); White Blood Count 12.7 X10*3/uL (4.8-10.8)
[2023-06-29 07:14] LABS: Glucose, Whole Blood 232 mg/dL (60-115)
[2023-06-29] MEDS: Furosemide 20 MG TABLET PO (08:07)
[2023-06-29] MEDS: Ferrous Sulfate 324 MG TABLET.DR PO (08:07)
[2023-06-29] MEDS: Empagliflozin 10 MG TABLET PO (08:07)
[2023-06-29] MEDS: Metoprolol Succinate ER 50 MG TAB.ER.24H PO (08:07)
[2023-06-29] MEDS: lisinopriL 5 MG TABLET PO (08:07)
[2023-06-29] MEDS: Albuterol/Iprat 2.5/0.5MG 3 ML AMPUL.NEB INHALE ×4 (08:14→19:55)
[2023-06-29] MEDS: Insulin Lispro 100 UNIT/ML 3 ML VIAL 10 UNIT SUBCUT ×4 (08:15→20:27)
[2023-06-29] MEDS: Sertraline HCL 50 MG TABLET 150 MG PO (10:09)
[2023-06-29] MEDS: clonazePAM 0.5 MG TABLET PO ×2 (10:09→23:00)
[2023-06-29] MEDS: medroxyPROGESTERone Acetate 5 MG TABLET 10 MG PO (10:09)
[2023-06-29 10:11] LABS: Adenovirus PCR Not Detected (Not Detect.); Bordetella parapertussis PCR Not Detected (Not Detect.); Bordetella pertussis PCR Not Detected (Not Detect.); Chlamydia pneumoniae PCR Not Detected (Not Detect.); Coronavirus 229E PCR Not Detected (Not Detect.); Coronavirus HKU1 PCR Not Detected (Not Detect.); Coronavirus NL63 PCR Not Detected (Not Detect.); Coronavirus OC43 PCR Not Detected (Not Detect.); Human metapneumovirus PCR Not Detected (Not Detect.); Influenza A PCR Not Detected (Not Detect.); Influenza B PCR Not Detected (Not Detect.); Mycoplasma pneumoniae PCR Not Detected (Not Detect.); Parainfluenza 1 PCR Not Detected (Not Detect.); Parainfluenza 2 PCR Not Detected (Not Detect.); Parainfluenza 3 PCR Not Detected (Not Detect.); Parainfluenza 4 PCR Not Detected (Not Detect.); RSV PCR Not Detected (Not Detect.); Rhino/Enterovirus PCR Not Detected (Not Detect.)
[2023-06-29 11:04] LABS: SARS-CoV-2 PCR Not Detected (Not Detect.)
[2023-06-29 11:14] LABS: Glucose, Whole Blood 236 mg/dL (60-115)
[2023-06-29] MEDS: methylPREDNISolone Sod Succ 125 MG/2 ML VIAL 60 MG IVPUSH ×2 (12:00→19:24)
[2023-06-29] MEDS: Acetaminophen 325 MG TABLET 650 MG PO ×2 (12:51→22:59)
--- NOTE | 2023-06-29 14:38 | P.PNIM_ITS ---
Subjective Subjective Date of Service: 06/29/23 Interval History: Essentially no changes in breathing since admission. No acute events. Comfortable at this time Review of Systems Denies chest pain Admits shortness of breath with minimal movement Denies nausea vomiting diarrhea Denies fever chills Physical Exam 2 Vital Signs: Vital Signs: Last Vital Signs Temp 98.2 F 06/28/23 21:36 Pulse 87 06/29/23 11:33 Resp 18 06/29/23 11:33 BP 118/73 06/28/23 21:36 Pulse Ox 93 06/28/23 21:36 O2 Del Method Nasal Cannula 06/28/23 21:36 O2 Flow Rate 4 06/28/23 21:36 BMI result Body Mass Index 56.3 Const: Other: Awake alert resting comfortably in bed Resp: Other: Diminished throughout with scattered expiratory wheezes Cardio: Other: No S4; positive S1-S2; no S3 murmurs rubs or gallops GI: Other: Obese positive bowel sounds Extrem: Other: No edema bilaterally Objective Data Active Medications Acetaminophen (Acetaminophen 325 Mg Tablet) 650 mg PO Q6H PRN PRN Reason: Pain, Mild (Pain Scale 1-3) Last Admin: 06/29/23 12:51 Dose: 650 mg Documented By: LUKASZ Albuterol Sulfate (Albuterol Sulfate (0.083%) 2.5 Mg/3 Ml Vial.Neb) 2.5 mg INHALE Q2H PRN PRN Reason: Shortness of Breath/Wheezing Last Admin: 06/29/23 03:08 Dose: 2.5 mg Documented By: RODOLFO Albuterol/Ipratropium (Albuterol/Iprat 2.5/0.5mg 3 Ml Ampul.Neb) 3 ml INHALE RQ4H WHILE AWAKE [facility] Last Admin: 06/29/23 11:33 Dose: 3 ml Documented By: MAHESH Clonazepam (Clonazepam 0.5 Mg Tablet) 0.5 mg PO BID PRN PRN Reason: anxiety Last Admin: 06/29/23 10:09 Dose: 0.5 mg Documented By: LUKASZ Dextrose (Dextrose 50 % 25 Gm/50 Ml Syringe) 25 gm IVPUSH Q15M PRN; Protocol PRN Reason: per Hypoglycemia Standing Ord. Empagliflozin (Empagliflozin 10 Mg Tablet) 10 mg PO DAILY [facility] Last Admin: 06/29/23 08:07 Dose: 10 mg Documented By: LUKASZ Ferrous Sulfate (Ferrous Sulfate 324 Mg Tablet.Dr) 324 mg PO DAILY [facility] Last Admin: 06/29/23 08:07 Dose: 324 mg Documented By: LUKASZ Furosemide (Furosemide 20 Mg Tablet) 20 mg PO DAILY [facility]; Protocol Last Admin: 06/29/23 08:07 Dose: 20 mg Documented By: LUKASZ Glucose (Glucose Gel 15 Gm Gel..Gram.) 15 gm PO Q15M PRN; Protocol PRN Reason: per Hypoglycemia Standing Ord. Guaifenesin (Guaifenesin 200 Mg/10 Ml 10 Ml Liquid) 10 ml PO Q4H [facility] Last Admin: 06/29/23 12:00 Dose: 10 ml Documented By: LUKASZ Insulin Glargine (Insulin Glargine,Hum.Rec.Anlog 100 Unit/Ml 10 Ml Vial) 40 unit SUBCUT BEDTIME [facility] Last Admin: 06/28/23 21:28 Dose: 40 unit Documented By: CAMI Insulin Human Lispro (Insulin Lispro 100 Unit/Ml 3 Ml Vial) 0 unit SUBCUT QIDACHS [facility]; Protocol Last Admin: 06/29/23 12:00 Dose: 4 unit Documented By: LUKASZ Insulin Human Lispro (Insulin Lispro 100 Unit/Ml 3 Ml Vial) 10 unit SUBCUT QIDACHS [facility] Last Admin: 06/29/23 12:00 Dose: 10 unit Documented By: LUKASZ Levothyroxine Sodium (Levothyroxine Sodium 75 Mcg Tablet) 75 mcg PO DAILY@0600 [facility] Last Admin: 06/29/23 05:53 Dose: 75 mcg Documented By: CAMI Lisinopril (Lisinopril 5 Mg Tablet) 5 mg PO DAILY [facility]; Protocol Last Admin: 06/29/23 08:07 Dose: 5 mg Documented By: LUKASZ Loratadine (Loratadine 10 Mg Tablet) 10 mg PO DAILY PRN PRN Reason: Allergy Symptoms Medroxyprogesterone Acetate (Medroxyprogesterone Acetate 5 Mg Tablet) 10 mg PO DAILY [facility] Last Admin: 06/29/23 10:09 Dose: 10 mg Documented By: LUKASZ Methylprednisolone Sodium Succinate (Methylprednisolone Sod Succ 125 Mg/2 Ml Vial) 60 mg IVPUSH Q6H [facility] Last Admin: 06/29/23 12:00 Dose: 60 mg Documented By: LUKASZ Metoprolol Succinate (Metoprolol Succinate Er 50 Mg Tab.Er.24h) 50 mg PO DAILY [facility]; Protocol Last Admin: 06/29/23 08:07 Dose: 50 mg Documented By: LUKASZ Omeprazole (Omeprazole 20 Mg Capsule.Dr) 20 mg PO DAILY@0630 [facility] Last Admin: 06/29/23 05:53 Dose: 20 mg Documented By: CAMI Ondansetron HCl (Ondansetron Hcl 4 Mg/2 Ml Vial) 4 mg IVPUSH Q8H PRN PRN Reason: Nausea and Vomiting Senna (Sennosides 8.6 Mg Tablet) 17.2 mg PO BEDTIME PRN PRN Reason: Constipation Sertraline HCl (Sertraline Hcl 50 Mg Tablet) 150 mg PO DAILY [facility] Last Admin: 06/29/23 10:09 Dose: 150 mg Documented By: LUKASZ Sodium Chloride (0.9 % Sodium Chloride Flush 3 Ml Syringe) 3 ml IVFLUSH QSHIFT [facility] Last Admin: 06/29/23 12:00 Dose: 3 ml Documented By: LUKASZ Trazodone HCl (Trazodone Hcl 50 Mg Tablet) 50 mg PO BEDTIME [facility] Last Admin: 06/28/23 21:27 Dose: 50 mg Documented By: CAMI Warfarin Sodium (Warfarin Sodium 7.5 Mg Tablet) 15 mg PO SuMoTuWeThSa@1800 [facility] Last Admin: 06/28/23 18:26 Dose: 15 mg Documented By: JOSE GFEHUI Warfarin Sodium (Warfarin Sodium 2.5 Mg Tablet) 17.5 mg PO Fr@1800 [facility] Labs 06/29/23 06:09 06/29/23 06:09 Labs: Laboratory Results - last 24 hr 06/28/23 06/28/23 06/28/23 12:10 14:45 14:53 MCV MCH MCHC RDW Plt Count MPV Immature Gran % (Auto) Neut % (Auto) Lymph % (Auto) Schleicher % (Auto) Eos % (Auto) Baso % (Auto) Lymph # (Auto) Schleicher # (Auto) Eos # (Auto) Baso # (Auto) Abs Immat Gran (auto) Absolute Neuts (auto) Absolute Nucleated RBC Nucleated RBC % (auto) PT 27.6 H INR 2.3 H Anion Gap Estim Creat Clear Calc Estimated GFR POC Glucose 417 H* Random Glucose Estimat Average Glucose 197 Hemoglobin A1c % 8.5 H Calcium Respiratory Panel Pichardo Adenovirus (Rapid PCR) B.pert (TEM-PCR) B.parapertussis DNA PCR C. pneumoniae DNA (PCR) Coronavirus OC43 (PCR) Coronavirus HKU1 (PCR) Coronavirus 229E (PCR) Coronavirus NL63 (PCR) Human Metapneumovir PCR Influenza A (RT-PCR) Influenza B (RT-PCR) M. pneumoniae (PCR) Parainfluenza 1 (PCR) Parainfluenza 2 (PCR) Parainfluenza 3 (PCR) Parainfluenza 4 (PCR) RSV (PCR) Entero/Rhino (PCR) SARS-CoV-2 RNA (RT-PCR) 06/28/23 06/28/23 06/28/23 15:30 17:01 21:03 MCV MCH MCHC RDW Plt Count MPV Immature Gran % (Auto) Neut % (Auto) Lymph % (Auto) Schleicher % (Auto) Eos % (Auto) Baso % (Auto) Lymph # (Auto) Schleicher # (Auto) Eos # (Auto) Baso # (Auto) Abs Immat Gran (auto) Absolute Neuts (auto) Absolute Nucleated RBC Nucleated RBC % (auto) PT INR Anion Gap Estim Creat Clear Calc Estimated GFR POC Glucose 400 H* 314 H Random Glucose Estimat Average Glucose Hemoglobin A1c % Calcium Respiratory Panel Pichardo See Note Adenovirus (Rapid PCR) Not Detected B.pert (TEM-PCR) Not Detected B.parapertussis DNA PCR Not Detected C. pneumoniae DNA (PCR) Not Detected Coronavirus OC43 (PCR) Not Detected Coronavirus HKU1 (PCR) Not Detected Coronavirus 229E (PCR) Not Detected Coronavirus NL63 (PCR) Not Detected Human Metapneumovir PCR Not Detected Influenza A (RT-PCR) Not Detected Influenza B (RT-PCR) Not Detected M. pneumoniae (PCR) Not Detected Parainfluenza 1 (PCR) Not Detected Parainfluenza 2 (PCR) Not Detected Parainfluenza 3 (PCR) Not Detected Parainfluenza 4 (PCR) Not Detected RSV (PCR) Not Detected Entero/Rhino (PCR) Not Detected SARS-CoV-2 RNA (RT-PCR) Not Detected 06/28/23 06/29/23 06/29/23 23:37 06:09 07:11 MCV 88.4 MCH 29.3 MCHC 33.1 RDW 15.1 Plt Count 308 MPV 10.6 Immature Gran % (Auto) 0.4 Neut % (Auto) 85.3 H Lymph % (Auto) 10.8 L Schleicher % (Auto) 3.1 Eos % (Auto) 0.2 Baso % (Auto) 0.2 Lymph # (Auto) 1.4 Schleicher # (Auto) 0.4 Eos # (Auto) 0.0 Baso # (Auto) 0.0 Abs Immat Gran (auto) 0.05 H Absolute Neuts (auto) 10.9 H Absolute Nucleated RBC 0.000 Nucleated RBC % (auto) 0.0 PT 30.8 H INR 2.5 H Anion Gap 16 Estim Creat Clear Calc 104.6 Estimated GFR 56 POC Glucose 241 H 232 H Random Glucose 247 H Estimat Average Glucose Hemoglobin A1c % Calcium 10.2 Respiratory Panel Pichardo Adenovirus (Rapid PCR) B.pert (TEM-PCR) B.parapertussis DNA PCR C. pneumoniae DNA (PCR) Coronavirus OC43 (PCR) Coronavirus HKU1 (PCR) Coronavirus 229E (PCR) Coronavirus NL63 (PCR) Human Metapneumovir PCR Influenza A (RT-PCR) Influenza B (RT-PCR) M. pneumoniae (PCR) Parainfluenza 1 (PCR) Parainfluenza 2 (PCR) Parainfluenza 3 (PCR) Parainfluenza 4 (PCR) RSV (PCR) Entero/Rhino (PCR) SARS-CoV-2 RNA (RT-PCR) 06/29/23 11:10 MCV MCH MCHC RDW Plt Count MPV Immature Gran % (Auto) Neut % (Auto) Lymph % (Auto) Schleicher % (Auto) Eos % (Auto) Baso % (Auto) Lymph # (Auto) Schleicher # (Auto) Eos # (Auto) Baso # (Auto) Abs Immat Gran (auto) Absolute Neuts (auto) Absolute Nucleated RBC Nucleated RBC % (auto) PT INR Anion Gap Estim Creat Clear Calc Estimated GFR POC Glucose 236 H Random Glucose Estimat Average Glucose Hemoglobin A1c % Calcium Respiratory Panel Pichardo Adenovirus (Rapid PCR) B.pert (TEM-PCR) B.parapertussis DNA PCR C. pneumoniae DNA (PCR) Coronavirus OC43 (PCR) Coronavirus HKU1 (PCR) Coronavirus 229E (PCR) Coronavirus NL63 (PCR) Human Metapneumovir PCR Influenza A (RT-PCR) Influenza B (RT-PCR) M. pneumoniae (PCR) Parainfluenza 1 (PCR) Parainfluenza 2 (PCR) Parainfluenza 3 (PCR) Parainfluenza 4 (PCR) RSV (PCR) Entero/Rhino (PCR) SARS-CoV-2 RNA (RT-PCR) Assessment and Plan (1) Acute respiratory failure with hypoxia: Status: Acute (2) Asthma exacerbation: Status: Acute Plan 48 year old female with history of insulin dependent type 2 diabetes, unspecified persistent asthma (no longer on maintenance inhalers but daily rescue inhaler use) with chronic hypoxemic respiratory failure, htn, history of PE with clot removal 2013 on [facility] coumadin, hypothyroidism, mood disorder, borderline personality disorder, PTSD, ROGERIO, ckd stage 3, unspecified CHF who is mordidly obese with BMI >56 and who is a former smoker (quit 10+ years ago) admitted for further management of acute asthma exacerbation with acute hypoxemic respiratory failure complicated by obesity hypoventilation syndrome. 1.Acute asthma exacerbation with acute on chronic hypoxemic respiratory failure -methylprednisolone 60mg q6h -dunebs q4h while awake -albuterol nebs prn -guaifenesin prn -continue supplemental O2 to maintain oximetry 90-92%, wean as tolerated 2.Morbid Obesity/ hypoventilation syndrome -encourage IS 3.Insulin dependent type 2 diabetes with steroid induced hyperglycemia -acceptable control on current therapies -lispro correctional scale -adjust as indicated 4.HTN -acceptable control on current therapies -adjust as indicated 5.Chronic HF, (can not qualify no echo on file -stable and well compensated -no acute issues at this time 6.History of PE -INR daily -adjust Coumadin as indicated 7Morbid obesity due to excess calories with bmi >56 -encouraged continued efforts towards weight loss coumadin full code Will require ongoing hospitalization to treat acute asthma exacerbation with IV steroids. This can not be achieved a lesser acute setting Quality Stroke Does the patient have a stroke diagnosis?: No VTE Prior VTE?: Yes VTE Risk Level:: Medical - moderate - high VTE Device Contraindication: Treatment Not Indicated VTE Drug Contraindication: N/A - Med Ordered
[2023-06-29 16:06] LABS: Glucose, Whole Blood 267 mg/dL (60-115)
[2023-06-29] MEDS: Warfarin Sodium 7.5 MG TABLET 15 MG PO (16:29)
[2023-06-29 20:14] LABS: Glucose, Whole Blood 372 mg/dL (60-115)
[2023-06-29] MEDS: Insulin Glargine,Hum.rec.anlog 100 UNIT/ML 10 ML VIAL 40 UNIT SUBCUT (20:27)
[2023-06-29] MEDS: traZODone HCL 50 MG TABLET PO (23:00)
[2023-06-30] VITALS (10 sets, daily range): BP systolic 103–132; BP diastolic 51–67; PULSE 82–92; RESP 16–20; TEMP 36.2–36.6; O2SAT 91–98
[2023-06-30] MEDS: methylPREDNISolone Sod Succ 125 MG/2 ML VIAL 60 MG IVPUSH ×4 (01:19→19:11)
[2023-06-30] MEDS: Albuterol Sulfate (0.083%) 2.5 MG/3 ML VIAL.NEB INHALE (01:30)
[2023-06-30] MEDS: Levothyroxine Sodium 75 MCG TABLET PO (06:22)
[2023-06-30] MEDS: Omeprazole 20 MG CAPSULE.DR PO (06:22)
[2023-06-30] MEDS: guaiFENesin 200 MG/10 ML 10 ML LIQUID PO ×5 (06:22→22:53)
[2023-06-30 07:09] LABS: Glucose, Whole Blood 251 mg/dL (60-115)
[2023-06-30] MEDS: Albuterol/Iprat 2.5/0.5MG 3 ML AMPUL.NEB INHALE ×4 (08:12→19:37)
[2023-06-30] MEDS: medroxyPROGESTERone Acetate 5 MG TABLET 10 MG PO (08:12)
[2023-06-30] MEDS: Ferrous Sulfate 324 MG TABLET.DR PO (08:12)
[2023-06-30] MEDS: Furosemide 20 MG TABLET PO (08:12)
[2023-06-30] MEDS: Metoprolol Succinate ER 50 MG TAB.ER.24H PO (08:12)
[2023-06-30] MEDS: lisinopriL 5 MG TABLET PO (08:12)
[2023-06-30] MEDS: Sertraline HCL 50 MG TABLET 150 MG PO (08:12)
[2023-06-30] MEDS: 0.9 % Sodium Chloride Flush 3 ML SYRINGE IVFLUSH ×3 (08:18→19:11)
[2023-06-30] MEDS: Insulin Lispro 100 UNIT/ML 3 ML VIAL 10 UNIT SUBCUT ×4 (08:19→20:44)
[2023-06-30] MEDS: Insulin Lispro 100 UNIT/ML 3 ML VIAL SUBCUT ×4 (08:19→20:43)
[2023-06-30] MEDS: Empagliflozin 10 MG TABLET PO (08:25)
[2023-06-30 10:50] LABS: INTERNATIONAL NORM RATIO 3.8 (0.9-1.1); Prothrombin Time 46.9 SEC (11.1-13.3)
[2023-06-30 11:42] LABS: Glucose, Whole Blood 306 mg/dL (60-115)
--- NOTE | 2023-06-30 12:02 | P.CDIM_ITS ---
PROVIDER RESPONSE TEXT: To clarify, the appropriate diagnosis supported by the clinical indicators: Moderate persistent QUERY TEXT: PHYSICIAN'S DOCUMENTATION REQUEST Date of Query: 06/30/2023 07:38 AM EDT Patient Name: Anahy Mccann Admit Date: 06/28/2023 Dear Rubio Jimenez, A review of the medical record indicates additional documentation may be needed. Please review below and update the documentation accordingly. Clinical indicators: Plan: unspecified persistent asthma (no longer on maintenance inhalers but daily rescue inhaler use) Acute asthma exacerbation with acute on chronic hypoxemic respiratory failure. Albuterol, DuoNebs, O2 Based on the above, please clarify in the Progress Notes further specificity regarding the type and a cuity of the asthma: Mild persistent Moderate persistent Severe persistent Other (explain) Clinically unable to determine (explain) Thank you, Jackie Ayon, CCS, CDIS Use of terms such as suspected, likely, concern for, or probable (associated with a specific diagnosi s that is being evaluated, monitored, or treated as if it exists) are acceptable and can be coded in the inpatient se tting, when documented at the time of discharge. Please use your independent medical judgment in providing your response. THIS QUERY IS PART OF THE PERMANENT MEDICAL RECORD
[2023-06-30] MEDS: clonazePAM 0.5 MG TABLET PO ×2 (12:06→22:53)
--- NOTE | 2023-06-30 12:06 | HO.PM.IMPN ---
Subjective Subjective Date of Service: 06/30/23 Interval History: Slowly improving. Notes less shortness of breath with movement Review of Systems Denies chest pain Admits shortness of breath with minimal movement Denies nausea vomiting diarrhea Denies fever chills Physical Exam Vital Signs: Vital Signs: Last Vital Signs Temp 98 F 06/30/23 06:51 Pulse 86 06/30/23 11:30 Resp 18 06/30/23 11:30 BP 132/67 06/30/23 06:52 Pulse Ox 94 06/30/23 06:51 O2 Del Method Nasal Cannula 06/30/23 06:51 O2 Flow Rate 2 06/30/23 06:51 BMI result Body Mass Index 56.3 Const: Other: Awake alert resting comfortably in bed Resp: Other: Diminished throughout with scattered expiratory wheezes Cardio: Other: No S4; positive S1-S2; no S3 murmurs rubs or gallops GI: Other: Obese positive bowel sounds Extrem: Other: No edema bilaterally Objective Data Active Medications Acetaminophen (Acetaminophen 325 Mg Tablet) 650 mg PO Q6H PRN PRN Reason: Pain, Mild (Pain Scale 1-3) Last Admin: 06/29/23 22:59 Dose: 650 mg Documented By: ADAM Albuterol Sulfate (Albuterol Sulfate (0.083%) 2.5 Mg/3 Ml Vial.Neb) 2.5 mg INHALE Q2H PRN PRN Reason: Shortness of Breath/Wheezing Last Admin: 06/30/23 01:30 Dose: 2.5 mg Documented By: LÁZARO Albuterol/Ipratropium (Albuterol/Iprat 2.5/0.5mg 3 Ml Ampul.Neb) 3 ml INHALE RQ4H WHILE AWAKE [facility] Last Admin: 06/30/23 11:28 Dose: 3 ml Documented By: MAHESH Clonazepam (Clonazepam 0.5 Mg Tablet) 0.5 mg PO BID PRN PRN Reason: anxiety Last Admin: 06/29/23 23:00 Dose: 0.5 mg Documented By: ADAM Dextrose (Dextrose 50 % 25 Gm/50 Ml Syringe) 25 gm IVPUSH Q15M PRN; Protocol PRN Reason: per Hypoglycemia Standing Ord. Empagliflozin (Empagliflozin 10 Mg Tablet) 10 mg PO DAILY [facility] Last Admin: 06/30/23 08:25 Dose: 10 mg Documented By: MARIO Ferrous Sulfate (Ferrous Sulfate 324 Mg Tablet.) 324 mg PO DAILY [facility] Last Admin: 06/30/23 08:12 Dose: 324 mg Documented By: MARIO Furosemide (Furosemide 20 Mg Tablet) 20 mg PO DAILY [facility]; Protocol Last Admin: 06/30/23 08:12 Dose: 20 mg Documented By: MARIO Glucose (Glucose Gel 15 Gm Gel..Gram.) 15 gm PO Q15M PRN; Protocol PRN Reason: per Hypoglycemia Standing Ord. Guaifenesin (Guaifenesin 200 Mg/10 Ml 10 Ml Liquid) 10 ml PO Q4H [facility] Last Admin: 06/30/23 11:58 Dose: 10 ml Documented By: MARIO Insulin Glargine (Insulin Glargine,Hum.Rec.Anlog 100 Unit/Ml 10 Ml Vial) 40 unit SUBCUT BEDTIME [facility] Last Admin: 06/29/23 20:27 Dose: 40 unit Documented By: ADAM Insulin Human Lispro (Insulin Lispro 100 Unit/Ml 3 Ml Vial) 0 unit SUBCUT QIDACHS [facility]; Protocol Last Admin: 06/30/23 11:58 Dose: 8 unit Documented By: MARIO Insulin Human Lispro (Insulin Lispro 100 Unit/Ml 3 Ml Vial) 10 unit SUBCUT QIDAS [facility] Last Admin: 06/30/23 11:58 Dose: 10 unit Documented By: MARIO Levothyroxine Sodium (Levothyroxine Sodium 75 Mcg Tablet) 75 mcg PO DAILY@0600 [facility] Last Admin: 06/30/23 06:22 Dose: 75 mcg Documented By: ADAM Lisinopril (Lisinopril 5 Mg Tablet) 5 mg PO DAILY [facility]; Protocol Last Admin: 06/30/23 08:12 Dose: 5 mg Documented By: MARIO Loratadine (Loratadine 10 Mg Tablet) 10 mg PO DAILY PRN PRN Reason: Allergy Symptoms Medroxyprogesterone Acetate (Medroxyprogesterone Acetate 5 Mg Tablet) 10 mg PO DAILY [facility] Last Admin: 06/30/23 08:12 Dose: 10 mg Documented By: MARIO Methylprednisolone Sodium Succinate (Methylprednisolone Sod Succ 125 Mg/2 Ml Vial) 60 mg IVPUSH Q6H [facility] Last Admin: 06/30/23 08:11 Dose: 60 mg Documented By: MARIO Metoprolol Succinate (Metoprolol Succinate Er 50 Mg Tab.Er.24h) 50 mg PO DAILY [facility]; Protocol Last Admin: 06/30/23 08:12 Dose: 50 mg Documented By: MARIO Omeprazole (Omeprazole 20 Mg Capsule.Dr) 20 mg PO DAILY@0630 [facility] Last Admin: 06/30/23 06:22 Dose: 20 mg Documented By: ADAM Ondansetron HCl (Ondansetron Hcl 4 Mg/2 Ml Vial) 4 mg IVPUSH Q8H PRN PRN Reason: Nausea and Vomiting Senna (Sennosides 8.6 Mg Tablet) 17.2 mg PO BEDTIME PRN PRN Reason: Constipation Sertraline HCl (Sertraline Hcl 50 Mg Tablet) 150 mg PO DAILY [facility] Last Admin: 06/30/23 08:12 Dose: 150 mg Documented By: MARIO Sodium Chloride (0.9 % Sodium Chloride Flush 3 Ml Syringe) 3 ml IVFLUSH QSHIFT [facility] Last Admin: 06/30/23 08:18 Dose: 3 ml Documented By: MARIO Trazodone HCl (Trazodone Hcl 50 Mg Tablet) 50 mg PO BEDTIME [facility] Last Admin: 06/29/23 23:00 Dose: 50 mg Documented By: ADAM Warfarin Sodium (Warfarin Sodium 7.5 Mg Tablet) 15 mg PO SuMoTuWeThSa@1800 [facility] Last Admin: 06/29/23 16:29 Dose: 15 mg Documented By: LUKASZ Warfarin Sodium (Warfarin Sodium 2.5 Mg Tablet) 17.5 mg PO Fr@1800 [facility] Labs 06/29/23 06:09 06/29/23 06:09 Labs: Laboratory Results - last 24 hr 06/29/23 06/29/23 06/30/23 15:59 20:08 06:52 Hold Purple Top PT INR POC Glucose 267 H 372 H* 251 H 06/30/23 06/30/23 10:33 11:16 Hold Purple Top SEE NOTE PT 46.9 H D INR 3.8 H POC Glucose 306 H Assessment and Plan (1) Acute respiratory failure with hypoxia: Status: Acute (2) Asthma exacerbation: Status: Acute Plan 48 year old female with history of insulin dependent type 2 diabetes, unspecified persistent asthma (no longer on maintenance inhalers but daily rescue inhaler use) with chronic hypoxemic respiratory failure, htn, history of PE with clot removal 2013 on [facility] coumadin, hypothyroidism, mood disorder, borderline personality disorder, PTSD, ROGERIO, ckd stage 3, unspecified CHF who is mordidly obese with BMI >56 and who is a former smoker (quit 10+ years ago) admitted for further management of acute asthma exacerbation with acute hypoxemic respiratory failure complicated by obesity hypoventilation syndrome. 1.Acute asthma exacerbation with acute on chronic hypoxemic respiratory failure -methylprednisolone 60mg q6h -dunebs q4h while awake -albuterol nebs prn -guaifenesin prn -continue supplemental O2 to maintain oximetry 90-92%, wean as tolerated... Essentially back to baseline 2.Morbid Obesity/ hypoventilation syndrome -encourage IS 3.Insulin dependent type 2 diabetes with steroid induced hyperglycemia -acceptable control on current therapies -lispro correctional scale -adjust as indicated 4.HTN -acceptable control on current therapies -adjust as indicated 5.Chronic HF, (can not qualify no echo on file -stable and well compensated -no acute issues at this time 6.History of PE -INR daily -adjust Coumadin as indicated 7Morbid obesity due to excess calories with bmi >56 -encouraged continued efforts towards weight loss coumadin full code Will require ongoing hospitalization to treat acute asthma exacerbation with IV steroids. This can not be achieved a lesser acute setting Quality Stroke Does the patient have a stroke diagnosis?: No VTE Prior VTE?: Yes VTE Risk Level:: Medical - moderate - high VTE Device Contraindication: Treatment Not Indicated VTE Drug Contraindication: N/A - Med Ordered
[2023-06-30 16:27] LABS: Glucose, Whole Blood 305 mg/dL (60-115)
[2023-06-30 20:22] LABS: Glucose, Whole Blood 388 mg/dL (60-115)
[2023-06-30] MEDS: Insulin Glargine,Hum.rec.anlog 100 UNIT/ML 10 ML VIAL 40 UNIT SUBCUT (20:44)
[2023-06-30] MEDS: traZODone HCL 50 MG TABLET PO (22:53)
[2023-07-01] MEDS: methylPREDNISolone Sod Succ 125 MG/2 ML VIAL 60 MG IVPUSH ×3 (02:05→13:32)
[2023-07-01 03:43] VITALS: BP 144/75; PULSE 78; RESP 20; TEMP 36.1; O2SAT 90
[2023-07-01 05:44] LABS: INTERNATIONAL NORM RATIO 4.1 (0.9-1.1); Prothrombin Time 49.9 SEC (11.1-13.3)
[2023-07-01] MEDS: Omeprazole 20 MG CAPSULE.DR PO (06:02)
[2023-07-01] MEDS: Levothyroxine Sodium 75 MCG TABLET PO (06:02)
[2023-07-01 07:04] VITALS: BP 122/59; PULSE 79; RESP 16; TEMP 36.6; O2SAT 94
[2023-07-01 07:10] LABS: Glucose, Whole Blood 214 mg/dL (60-115)
[2023-07-01] MEDS: guaiFENesin 200 MG/10 ML 10 ML LIQUID PO ×2 (07:30→11:38)
[2023-07-01] MEDS: Insulin Lispro 100 UNIT/ML 3 ML VIAL SUBCUT ×3 (07:30→16:21)
[2023-07-01] MEDS: Insulin Lispro 100 UNIT/ML 3 ML VIAL 10 UNIT SUBCUT ×3 (07:30→16:20)
[2023-07-01] MEDS: 0.9 % Sodium Chloride Flush 3 ML SYRINGE IVFLUSH (07:31)
[2023-07-01] MEDS: Metoprolol Succinate ER 50 MG TAB.ER.24H PO (07:32)
[2023-07-01] MEDS: lisinopriL 5 MG TABLET PO (07:32)
[2023-07-01] MEDS: Sertraline HCL 50 MG TABLET 150 MG PO (07:32)
[2023-07-01] MEDS: medroxyPROGESTERone Acetate 5 MG TABLET 10 MG PO (07:32)
[2023-07-01] MEDS: Empagliflozin 10 MG TABLET PO (07:32)
[2023-07-01] MEDS: Ferrous Sulfate 324 MG TABLET.DR PO (07:32)
[2023-07-01] MEDS: Furosemide 20 MG TABLET PO (07:32)
[2023-07-01] MEDS: clonazePAM 0.5 MG TABLET PO (07:52)
[2023-07-01 07:54] VITALS: PULSE 82; RESP 16; O2SAT 93
[2023-07-01] MEDS: Albuterol/Iprat 2.5/0.5MG 3 ML AMPUL.NEB INHALE ×3 (07:54→15:19)
--- NOTE | 2023-07-01 11:05 | P.DS_ITS ---
DS: Providers Provider Date of Service: 07/01/23 Date of admission: 06/28/23 14:19 Date of discharge: 07/01/23 Primary care physician: Maria Guadalupe Severino MD DS: Diagnosis Discharge Diagnosis (1) Acute respiratory failure with hypoxia: Status: Acute (2) Asthma exacerbation: Status: Acute DS: Summary Hospital Course Hospital Course: 48 year old female with history of insulin dependent type 2 diabetes, unspec ified persistent asthma (no longer on maintenance inhalers but daily rescue inhaler use) with chronic hypoxemic respiratory failure, htn, history of PE with clot removal 2013 on medical terminologist coumadin, hypothyroidism, mood disorder, borderline personality disorder, PTSD, ROGERIO, ckd stage 3, unspecified CHF who is mordidly obese with BMI >56 and who is a former smoker (quit 10+ years ago) who presented to the ED from PCP office due after being found hypoxic to 86% on RA. She reports has been experiencing sob, wheezing, productive cough with yellow sputum production, pleuritic cp, and headache ongoing x 2-3 days. No fevers, shaking chills, ST, congestion, abd pain, n/v/d, lighteheadedness, palpitations, chest pressure. No known sick contacts. Was seen in the ED 2 days ago and started on prednisone. Was feeling slightly better today but presented to pcp this morning for evaluation of ongoing sob and headache and found to be hypoxic to 86%. She has 2L supplemental O2 at home for prn use but states she never uses it and monitors her O2. Has been hospitalized for asthma exacerbation years ago, no history of intubation for asthma. Since arrival, was noted to be hypoxic to 87-88% on RA now maintaining 91-93% on 3L supplemental O2. Mild tachycardia to 115, vitals otherwise stable, afebrile. Mild leukocytosis of 11.4. Renal function baseline, lytes normal except for co2 30. Initial glucose 410, now 324. Trop undetectable. BNP 95. Negative for flu, covid19, rsv. CXR shows hypoexpended lungs with out acute process. In the ed given duoneb x2, 60mg iv methylprednisolone, and 2g iv mag. She will be admitted for further management of acute asthma exacerbation with acute hypoxemic respiratory failure. Hospital Course Admitted to general medical floor and maintained on DuoNebs and supplemental O2. She was given pulse dose steroids in over the course of the next 48-.72 hours her breathing improved to the point where she could leave flat without issue. At this time she is on 3 L nasal cannula which is different than her baseline. Discussed with her visiting nurse and she will titrate her back down to her baseline over the time as she improves with steroids. At this point in time she will be medically acceptable to be discharged to home with physical therapy and nursing support. Time Attestation Discharge Coordination Time (in mins): 35 Quality: Safe Use of Opioids Does Pt have an Active Cancer Diagnosis on the Problem List?: No Quality: Stroke Does the patient have a stroke diagnosis?: No Physical Exam Vital Signs: Vital Signs: Last Vital Signs Temp 97.8 F 07/01/23 07:04 Pulse 82 07/01/23 07:54 Resp 16 07/01/23 07:54 BP 122/59 L 07/01/23 07:04 Pulse Ox 94 07/01/23 07:04 O2 Del Method Nasal Cannula 07/01/23 07:04 O2 Flow Rate 3 07/01/23 07:04 BMI result Body Mass Index 56.3 Const: Other: Awake alert resting comfortably in bed Resp: Other: Diminished throughout with scattered expiratory wheezes Cardio: Other: No S4; positive S1-S2; no S3 murmurs rubs or gallops GI: Other: Obese positive bowel sounds Extrem: Other: No edema bilaterally DS: Data Data Completed and Pending Completed studies during hospitalization [Text1]: Procedures Assistance with Respiratory Ventilation, Less than 24 Consecutive Hours, Continuous Positive Airway Pressure (05/19/22) Labs on day of discharge: Laboratory Results - last 24 hr 06/30/23 06/30/23 06/30/23 11:16 16:17 20:05 Hold Purple Top PT INR POC Glucose 306 H 305 H 388 H* 07/01/23 07/01/23 05:21 07:01 Hold Purple Top SEE NOTE PT 49.9 H INR 4.1 H POC Glucose 214 H Discharge Plan Discharge Anticipated Discharge Date/Time: 07/01/23 10:58 Patient Disposition: Home Health Service Discharge Diagnosis: Mild persistent asthma with exacerbation Referrals: Maria Guadalupe Severino MD [Primary Care Provider] - 1 Week Discharge Medications: New prednisone 20 mg tablet See Rx Instructions .Route .COMPLEX Qty: 18 0RF Rx Instructions: 20 mg orally; 3 tabs daily for 3 days, 2 tabs daily for 3 days, 1 tab daily for 3 days Continued (DME) FreeStyle [place] 2 [place] Misc See Rx Instructions .ROUTE .MEDSUPPLY Qty: 1 0RF Rx Instructions: As directed (DME) pen needle, diabetic [BD Ultra-Fine Leslie Pen Needle] 32 gauge x 5/32 needle See Rx Instructions .ROUTE .MEDSUPPLY Qty: 100 11RF Rx Instructions: As directed three times a day furosemide 20 mg tablet 1 tab PO DAILY lisinopril 5 mg tablet 1 tab PO DAILY levothyroxine 75 mcg tablet 1 tab PO DAILY@0600 loratadine 10 mg tablet 1 tab PO DAILY PRN (Reason: Allergy Symptoms) metoprolol succinate 50 mg tablet extended release 24 hr 1 tab PO DAILY omeprazole 20 mg capsule,delayed release(DR/EC) 1 cap PO DAILY@0630 trazodone 50 mg tablet 1 tab PO BEDTIME sertraline 100 mg tablet 1.5 tab PO DAILY medroxyprogesterone 10 mg tablet 1 tab PO DAILY Hold Instructions: Resume on 02/01/23. clonazepam 1 mg tablet 0.5 tab PO BID PRN (Reason: anxiety) warfarin 5 mg tablet 15 mg PO SUMOTUWETHSA ferrous sulfate 325 mg (65 mg iron) tablet,delayed release (DR/EC) 325 mg PO DAILY dapagliflozin propanediol [Farxiga] 5 mg tablet 5 mg PO DAILY insulin glargine U-300 conc [Toujeo Max U-300 SoloStar] 300 unit/mL (3 mL) insulin pen 50 unit subcut BEDTIME Trulicity 3 mg/0.5 mL pen injector 3 mg subcut FR albuterol sulfate 90 mcg/actuation HFA aerosol inhaler 2 inh inhalation Q4H PRN (Reason: shortness of breath or wheezing) Qty: 8.5 0RF Rx Instructions: use proair albuterol sulfate 2.5 mg /3 mL (0.083 %) Solution For Nebulization 2.5 mg INHALATION Q4-6H PRN (Reason: Shortness Of Breath Or Wheezing) warfarin 5 mg tablet 17.5 mg PO FR insulin lispro [Humalog KwikPen Insulin] 100 unit/mL insulin pen See Protocol subcut TIDWMEAL Protocol: Insulin Correction Scale Less than or equal to 110 ---- Give (units): 0 111 to 150 Give (units): 0 151 to 200 Give (units): 2 201 to 250 Give (units): 4 251 to 300 Give (units): 6 301 to 350 Give (units): 8 Greater than 350 Give (units): 10 Call MD if Blood Glucose > : 350 Rx Instructions: 8 u shake, 12 u small meal, 16 u lreg/lrg meal subcutaneously 3 times per day with meals; guaifenesin 100 mg/5 mL Liquid 200 mg PO Q4H PRN (Reason: Cough) metformin 1,000 mg tablet 1,000 mg PO BIDWM (DME) FreeStyle [place] 2 Sensor Kit See Rx Instructions .ROUTE .MEDSULY Qty: 2 11RF Rx Instructions: As directed every 2 weeks Discharge Orders: Discharge Order (Routine); Ordered 07/01/23 Ordered By: Rubio Jimenez Diet: Advance to usual diet Activity on Discharge: As tolerated Stand Alone Forms: Patient Portal Discharge page Print Language: Paraguayan Care Plan Goals: Continue your oxygen at 3 liters/minute as discussed with your nerves. Nurses will follow your sats and wean you back to your original oxygen settings over time Health Concerns: Complete course of oral prednisone as outlined. Your sugars will be high but they were resumed to normal once he finished a prednisone Plan of Treatment: Have also asked Physical therapy to see you at home and work with you for improved mobility Assessment: See discharge summary
[2023-07-01 11:24] VITALS: PULSE 88; RESP 17; O2SAT 94
[2023-07-01 11:28] LABS: Glucose, Whole Blood 342 mg/dL (60-115)
--- NOTE | 2023-07-01 11:34 | MHC.CM.PN ---
pt being dcd today home elmeme.me notified pt to self arrange with [facility] transportaion home if she is unable to doso she will let cm know and we will do amb
--- NOTE | 2023-07-01 12:23 | MHC.CM.PN ---
DP: PT UNABLE TO GET A RIDE HOME WITH [facility], BLS TRANSPORT BOOKED [facility]IA [facility] FOR 4:30 PM.
[2023-07-01 15:20] VITALS: PULSE 86; RESP 18; O2SAT 92
[2023-07-01 15:31] VITALS: BP 124/69; PULSE 86; RESP 22; TEMP 36.4; O2SAT 92
[2023-07-01 16:17] LABS: Glucose, Whole Blood 426 mg/dL (60-115)
== END 2023-07-01 16:53 | disposition home health service (06) | DRG 141 ==
LOC: HO.ED 13:45 → HO.EDOVER 14:30 → HO.S3 06-29 10:26
PROVIDERS: Physician Assistant Medical; Admitting Provider Physician Assistant; Emergency Provider Emergency Medicine; PCP Internal Medicine; Visit Provider Hospitalist
DX: J45.41 Moderate persistent asthma with (acute) exacerbation (principal); J96.21 Acute and chronic respiratory failure with hypoxia; E11.22 Type 2 diabetes mellitus with diabetic chronic kidney disease; I13.0 Hypertensive heart and chronic kidney disease with heart failure and stage 1 through stage 4 chronic kidney disease, or unspecified chronic kidney disease; E66.2 Morbid (severe) obesity with alveolar hypoventilation; E03.9 Hypothyroidism, unspecified; F43.10 Post-traumatic stress disorder, unspecified; E11.65 Type 2 diabetes mellitus with hyperglycemia; F31.9 Bipolar disorder, unspecified; Z68.43 Body mass index [BMI] 50.0-59.9, adult; N18.30 Chronic kidney disease, stage 3 unspecified; I50.9 Heart failure, unspecified; Z86.711 Personal history of pulmonary embolism; Z20.822 Contact with and (suspected) exposure to COVID-19; Z79.4 Long term (current) use of insulin; Z79.01 Long term (current) use of anticoagulants; Z79.84 Long term (current) use of oral hypoglycemic drugs; Z79.85 Long-term (current) use of injectable non-insulin antidiabetic drugs; Z79.890 Hormone replacement therapy; Z79.899 Other long term (current) drug therapy
CPT/HCPCS: 0241U; 36415; 71045; 80048; 80053; 82947; 83036; 83735; 83880; 84484; 85025; 85610; 87633; 93005; 94640; 99285; J2920; J2930; J3475

== ENCOUNTER → 2023-06-28 11:32 | Outpatient (BNV) | payer OTHER, SELFPAY | PROVIDERS: Admitting Provider Physician Assistant; Emergency Provider Emergency Medicine; PCP Internal Medicine; Visit Provider Internal Medicine Cardiovascular Disease | DX: R06.02 Shortness of breath (principal); R00.0 Tachycardia, unspecified | CPT/HCPCS: 93010 ==

== ENCOUNTER → 2023-06-28 14:19 | Outpatient (BNV) | payer OTHER, SELFPAY | PROVIDERS: Admitting Provider Physician Assistant; Emergency Provider Emergency Medicine; PCP Internal Medicine; Visit Provider Physician Assistant | DX: J96.01 Acute respiratory failure with hypoxia (principal); J45.901 Unspecified asthma with (acute) exacerbation | CPT/HCPCS: 99223; 99233; 99239 ==

== ENCOUNTER 2023-08-24 12:51 | Emergency (ER) | payer OTHER, SELFPAY ==
--- NOTE | 2023-08-24 12:56 | ED_ITS ---
HPI - Seizure General Chief Complaint: General Medical Stated Complaint: SZ X10 MIN,H/O SZ PER EMS Time Seen by Provider: 08/24/23 12:55 Source: patient and EMS Mode of arrival: EMS Limitations: no limitations History of Present Illness ED Provider: Dr. Don Floyd HPI Narrative: 48 year old assigned female at with a history of pseudoseizures, asthma, CHF, DM, and COPD on 2-3 liters of PRN oxygen presenting to the emergency department today for evaluation of pseudo-seizure. The patient states that she he has been under a lot of stress since she has involved in a lawsuit. Her [facility] peer support member went to visit her. The patient was able to come down in the lobby but was shaking uncontrollably and was having difficulty talking. The appears aviation support equipment repairer member states that the signs are consistent with her pseudoseizures however the symptoms lasted 15-20 minutes which was unusual therefore an ambulance was called and the patient was brought to emergency department. Paramedics report that the patient's O2 saturation was 89% on 2 L they bumped her up to 3 L. patient's point of care glucose was 455. Patient states that she did eat to [employer] croissants and 2 donuts prior to coming to emergency department. She states that earlier in the morning she did give herself 20 units of Humalog for an elevated glucose. In the emergency department she is awake, alert, answers all questions appropriately. Her peer support member states that the patient is at her baseline. Seizure History: Yes Related Data Home Medications ?Medication ?Instructions ?Recorded ?Confirmed furosemide 20 mg tablet 1 tab PO DAILY 05/26/21 06/28/23 levothyroxine 75 mcg tablet 1 tab PO DAILY@0600 05/26/21 06/28/23 lisinopril 5 mg tablet 1 tab PO DAILY 05/26/21 06/28/23 loratadine 10 mg tablet 1 tab PO DAILY PRN Allergy Symptoms 05/26/21 06/28/23 metoprolol succinate 50 mg 1 tab PO DAILY 05/26/21 06/28/23 tablet,extended release 24 hr omeprazole 20 mg capsule,delayed 1 cap PO DAILY@0630 gi upset 05/26/21 06/28/23 release trazodone 50 mg tablet 1 tab PO BEDTIME 05/26/21 06/28/23 clonazepam 1 mg tablet 0.5 tab PO BID PRN anxiety 07/14/21 06/28/23 medroxyprogesterone 10 mg tablet 1 tab PO DAILY 07/14/21 06/28/23 warfarin 5 mg tablet 15 mg PO SUMOTUWETHSA 07/14/21 06/28/23 sertraline 100 mg tablet 1.5 tab PO DAILY 07/22/21 06/28/23 dapagliflozin propanediol 5 mg 5 mg PO DAILY 12/13/22 06/28/23 tablet (Farxiga) ferrous sulfate 325 mg (65 mg 325 mg PO DAILY 12/13/22 06/28/23 iron) tablet,delayed release insulin glargine U-300 conc 300 50 unit subcut BEDTIME 12/13/22 06/28/23 unit/mL (3 mL) subcutaneous pen (Toujeo Max U-300 SoloStar) dulaglutide 3 mg/0.5 mL 3 mg subcut FR 01/25/23 06/28/23 subcutaneous [facility] albuterol sulfate 2.5 mg/3 mL 2.5 mg inhalation Q4-6H PRN 06/28/23 06/28/23 (0.083 %) solution for nebulization Shortness Of Breath Or Wheezing guaifenesin 100 mg/5 mL oral liquid 200 mg PO Q4H PRN Cough 06/28/23 06/28/23 insulin lispro 100 unit/mL See Protocol subcut TIDWMEAL 06/28/23 06/28/23 subcutaneous pen (Humalog KwikPen (U-100) Insulin) metformin 1,000 mg tablet 1,000 mg PO BIDWM 06/28/23 06/28/23 warfarin 5 mg tablet 17.5 mg PO FR 06/28/23 06/28/23 Previous Rx's ?Medication ?Instructions ?Recorded flash glucose sensor (FreeStyle #2 ea 06/23/21 Shelby 2 Sensor kit) flash glucose scanning reader #1 ea 07/22/21 (FreeStyle [place] 2 [place]) pen needle, diabetic 32 gauge x #100 ea 09/04/21 (BD Ultra-Fine Leslie Pen Needle) albuterol sulfate 90 mcg/actuation 2 inh inhalation Q4H PRN shortness 01/28/23 aerosol inhaler of breath or wheezing #8.5 grams prednisone 20 mg tablet See Rx Instructions .Route 07/01/23 .COMPLEX #18 tabs Allergies Allergy/AdvReac Type Severity Reaction Status Date / Time Penicillins [PENICILLINS] Allergy Intermediate HIVES Verified 08/24/23 13:16 egg [Egg] Allergy Mild SWELLING Verified 06/28/23 11:34 aspirin Allergy Unknown Unknown Verified 06/28/23 11:34 bee pollen [BEE STINGS] Allergy Unknown UNKNOWN Verified 06/28/23 11:34 lactose [LACTOSE] Allergy Unknown UNKNOWN Verified 06/28/23 11:34 latex [LATEX] Allergy Unknown HIVES Verified 06/28/23 11:34 oxycodone Allergy Unknown Unknown Verified 06/28/23 11:34 peanut [PEANUT] Allergy Unknown UNKNOWN Verified 06/28/23 11:34 penicillin V Allergy Unknown Unknown Verified 06/28/23 11:34 kiwi Allergy Anaphylaxis Verified 06/28/23 11:34 eggs,bees,latex,peanuts Allergy Unknown Unknown Uncoded 02/28/23 01:23 medical tape Allergy Unknown Unknown Uncoded 02/28/23 01:23 TAPE,PLASTIC Allergy Unknown RASH Uncoded 02/28/23 01:23 Review of Systems Review of Systems: Yes all other systems are reviewed and are negative PMFSH Past Medical History Medical History Recurrent major depression PTSD (post-traumatic stress disorder) Acute hyperglycemia Proteinuria Obesity due to excess calories Hyperlipidemia LDL goal <70 Cardiomyopathy DVT (deep vein thrombosis) in Gallstones ROGERIO (obstructive sleep apnea) Pancreatitis BMI 50.0-59.9, adult Essential hypertension Diabetes type 2, uncontrolled Diabetes mellitus, type 2 CHF (congestive heart failure) Mood disorder Irritable bowel Hypothyroidism Depression Anxiety PTSD (post-traumatic stress disorder) Asthma Hypertension Pulmonary embolism Surgical History History of dental surgery History of open heart surgery Hx of removal of cyst Hx of hernia repair Family History Family History Paternal Grandmother Diabetes Social History Social History Household Members: None Housing: Apartment Housing Other:: 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 Do you presently have visiting nurse or other home services: Yes Unable to assess alcohol history related to: Refusing to respond Alcohol intake: never Comment: patient sleeping Patient Tobacco Use Status: Former Tobacco user Quit Date: Tobacco use type: Cigarette Smoked in Last 30 Days: No e-Cigarette/Vaping Use: Never Used Second Hand Smoke Exposure: Yes (others at her apartment complex) Substance Use Type: Marijuana Advance Directives: No Advance Directives Information Provided: Yes service: No Current occupational status: disabled Sexual orientation: Lesbian/Good/Homosexual Physical Exam Vital Signs: Vital Signs: Last Vital Signs Temp 98 F 08/24/23 13:12 Pulse 92 08/24/23 13:12 Resp 20 08/24/23 13:12 BP 111/50 L 08/24/23 13:12 Pulse Ox 94 08/24/23 13:12 O2 Del Method Nasal Cannula 08/24/23 13:12 Oxygen Flow Rate 2 08/24/23 13:12 BMI result Body Mass Index 58.3 Exam: General: Awake, alert in no distress Head: Normocephalic, atraumatic EENT: PERRL, Lids normal, sclera normal, conjunctiva normal, nose normal , ears normal, throat without erythema or exudates Neck: Supple, no adenopathy Lung: breath sounds symmetric, no wheezing, rales or rhonchi Chest: symmetric movement, nontender Heart: regular rate and rhythm, normal S1, S2 no murmurs or rubs Abdomen: soft, non-tender, nondistended, normal bowel sounds Back: no vertebral tenderness, no CVAT Extremities: no deformities, moves all extremities symmetrically Neuro: Awake, alert, oriented, normal speech, cranial nerves intact, moves all extremities symmetrically Psych: Pleasant, cooperative Medications Administered Discontinued Medications Generic Name Dose Route Start Last Admin Trade Name Freq PRN Reason Stop Dose Admin Insulin Human Lispro 20 unit 08/24/23 13:09 08/24/23 13:44 Insulin Lispro 100 Unit/Ml 3 Ml Vial SUBCUT 08/24/23 13:10 20 unit ONCE ONE Administration Lorazepam 1 mg 08/24/23 13:09 08/24/23 13:45 Lorazepam 1 Mg Tablet PO 08/24/23 13:10 1 mg ONCE ONE Administration Medical Decision Making Medical Decision Making MDM Narrative: 48 year old assigned female at with a history of pseudoseizures, asthma, CHF, DM, and COPD on 2-3 liters of PRN oxygen presenting to the emergency department today for evaluation of pseudo-seizure, O2 saturation of 89% on 2 L and elevated glucose. Patient's point of care glucose by paramedics was elevated at 455 but the patient did eat to croissants and 2 donuts prior to coming to the emergency department. Patient was on 2 L of oxygen via nasal cannula, she uses 2-3 L and paramedics increased oxygen to 3 L which corrected her hypoxia. Physical examination was unremarkable on the patient is at her baseline. She did tell me that she is overwhelmed and under stress since she was involved in a lawsuit. Differential diagnosis: ?Includes but is not limited to seizure, pseudo-seizure, anxiety, panic attack, hyperglycemia secondary to dietary indiscretions Patient was initially treated with the following:Humalog 20 units subcutaneously, oral hydration Course: 13:19 Patient's presentation is consistent with a pseudo-seizure secondary to stress and anxiety. Patient's hypoxia was easily corrected by increasing her FiO2 from 2 L to 3 L and she uses 2-3 L of oxygen chronically for her COPD. Patient's point of care glucose was elevated at 455 but this is secondary to dietary indiscretions prior to coming to emergency department. Patient will be treated with Humalog and oral hydration. The plan is to observe in the emergency department for approximately 1 hour and then repeat her glucose. 14:36 The patient's repeat point of care glucose was 395 which did improve. At this time I do not think the patient hospitalized for hyperglycemia and it is secondary to dietary noncompliance. She was advised to stay on a low carb diet for the rest of the day and to continue taking her Humalog as prescribed by her PCP. Patient states that her anxiety did improve after receiving Ativan. The patient was discharged home with printed and verbal instructions. Admission/Observation Consideration of admission/observation: Escalation of care including ad mission/observation considered Chronic Conditions Patient?s care impacted by: Diabetes and Other (Anxiety) Discharge Plan Discharge Clinical Impression: Psychogenic nonepileptic seizure, Acute hyperglycemia Patient Disposition: Home, Self-Care Additional Instructions: Stay on a low carbohydrate diet for the rest of the day. Increase the amount of fluid that you drink today to help bring down your high sugar. Continued to check your point of care glucose in use your Humalog as prescribed by your providers. Follow-up with your doctor in 2 days. Please return to the emergency department if your symptoms get worse or if you develop any symptoms that are concerning to you. Prescriptions: No Action (DME) FreeStyle [place] 2 [place] [facility] See Rx Instructions .ROUTE .MEDSUPPLY Qty: 1 0RF Rx Instructions: As directed (DME) pen needle, diabetic [BD Ultra-Fine Leslie Pen Needle] 32 gauge x 5/32 needle See Rx Instructions .ROUTE .MEDSUPPLY Qty: 100 11RF Rx Instructions: As directed three times a day furosemide 20 mg tablet 1 tab PO DAILY lisinopril 5 mg tablet 1 tab PO DAILY levothyroxine 75 mcg tablet 1 tab PO DAILY@0600 loratadine 10 mg tablet 1 tab PO DAILY PRN (Reason: Allergy Symptoms) metoprolol succinate 50 mg tablet extended release 24 hr 1 tab PO DAILY omeprazole 20 mg capsule,delayed release(DR/EC) 1 cap PO DAILY@0630 trazodone 50 mg tablet 1 tab PO BEDTIME sertraline 100 mg tablet 1.5 tab PO DAILY medroxyprogesterone 10 mg tablet 1 tab PO DAILY Hold Instructions: Resume on 02/01/23. clonazepam 1 mg tablet 0.5 tab PO BID PRN (Reason: anxiety) warfarin 5 mg tablet 15 mg PO SUMOTUWETHSA ferrous sulfate 325 mg (65 mg iron) tablet,delayed release (DR/EC) 325 mg PO DAILY dapagliflozin propanediol [Farxiga] 5 mg tablet 5 mg PO DAILY insulin glargine U-300 conc [Toujeo Max U-300 SoloStar] 300 unit/mL (3 mL) insulin pen 50 unit subcut BEDTIME Trulicity 3 mg/0.5 mL pen injector 3 mg subcut FR albuterol sulfate 90 mcg/actuation HFA aerosol inhaler 2 inh inhalation Q4H PRN (Reason: shortness of breath or wheezing) Qty: 8.5 0RF Rx Instructions: use proair albuterol sulfate 2.5 mg /3 mL (0.083 %) Solution For Nebulization 2.5 mg INHALATION Q4-6H PRN (Reason: Shortness Of Breath Or Wheezing) warfarin 5 mg tablet 17.5 mg PO FR insulin lispro [Humalog KwikPen Insulin] 100 unit/mL insulin pen See Protocol subcut TIDWMEAL Protocol: Insulin Correction Scale Less than or equal to 110 ---- Give (units): 0 111 to 150 Give (units): 0 151 to 200 Give (units): 2 201 to 250 Give (units): 4 251 to 300 Give (units): 6 301 to 350 Give (units): 8 Greater than 350 Give (units): 10 Call MD if Blood Glucose > : 350 Rx Instructions: 8 u shake, 12 u small meal, 16 u lreg/lrg meal subcutaneously 3 times per day with meals; guaifenesin 100 mg/5 mL Liquid 200 mg PO Q4H PRN (Reason: Cough) metformin 1,000 mg tablet 1,000 mg PO BIDWM prednisone 20 mg tablet See Rx Instructions .Route .COMPLEX Qty: 18 0RF Rx Instructions: 20 mg orally; 3 tabs daily for 3 days, 2 tabs daily for 3 days, 1 tab daily for 3 days (DME) FreeStyle [place] 2 Sensor Kit See Rx Instructions .ROUTE .MEDSUPPLY Qty: 2 11RF Rx Instructions: As directed every 2 weeks Print Language: Slovenian
[2023-08-24 13:12] VITALS: BP 110/68; BP 111/50; PULSE 92; PULSE 94; RESP 20; TEMP 36.6; O2SAT 94; BMI 58.3
[2023-08-24] MEDS: Insulin Lispro 100 UNIT/ML 3 ML VIAL 20 UNIT SUBCUT (13:44)
[2023-08-24] MEDS: LORazepam 1 MG TABLET PO (13:45)
--- NOTE | 2023-08-24 13:59 | PC.NURSE ---
Pt presents to ED from home via EMS, [facility] peer called for EMS due to seizure like activity, shaking with no LOC or fall. Pt reports she has a hx of psuedoseizures, has been very stressed lately and felt one come on today. Denies fall, head hit, CP or SOB. Reports increased stress in life, general body aches. Alert and oriented, breathing even and unlabored. On 2L O2 NC baseline, remained on that. BGL high for EMS. VSS.
[2023-08-24 14:37] LABS: Glucose, Whole Blood 395 mg/dL (60-115)
[2023-08-24 14:54] VITALS: BP 117/83; PULSE 83; RESP 20; TEMP 36.7; O2SAT 94
== END 2023-08-24 14:56 | disposition home or self-care (01) ==
PROVIDERS: Emergency Provider Emergency Medicine Emergency Medical Services; PCP Internal Medicine
DX: R56.9 Unspecified convulsions (principal); R09.02 Hypoxemia; F41.9 Anxiety disorder, unspecified; F43.9 Reaction to severe stress, unspecified; E11.65 Type 2 diabetes mellitus with hyperglycemia; I10 Essential (primary) hypertension; E78.5 Hyperlipidemia, unspecified; Z86.718 Personal history of other venous thrombosis and embolism; Z79.899 Other long term (current) drug therapy; Z79.4 Long term (current) use of insulin; Z79.85 Long-term (current) use of injectable non-insulin antidiabetic drugs; Z79.84 Long term (current) use of oral hypoglycemic drugs; Z79.01 Long term (current) use of anticoagulants; Z87.891 Personal history of nicotine dependence
CPT/HCPCS: 82947; 99283; 99284